=== PATIENT | female | born 2000 | race Caucasian/White ===

== ENCOUNTER → 2020-09-06 15:51 | Outpatient (BNVA) | payer OTHER, SELFPAY | PROVIDERS: Visit Provider Physician Assistant | DX: Z13.89 Encounter for screening for other disorder (principal) | CPT/HCPCS: 99214 ==

== ENCOUNTER 2020-09-24 07:22 | Emergency (ER) | payer MEDICARE, MEDICAID, SELFPAY ==
[2020-09-24 07:32] VITALS: BP 175/121; PULSE 100; RESP 18; TEMP 36.5; O2SAT 97; BMI 49.6
--- NOTE | 2020-09-24 08:12 | ED.SKABFB ---
HPI - Skin/Abscess/Foreign Bdy General Chief complaint: Skin/Abscess/Foreign Body Stated complaint: L KNEE PAIN REDNESS Time Seen by Provider: 09/24/20 08:12 Source: patient Mode of arrival: ambulatory Limitations: no limitations History of Present Illness HPI narrative: 20-year-old female otherwise healthy presented with left thigh redness for the past 2 days, patient otherwise declined any fever chills. complaint: rash Onset (ago): day(s) (2) Tetanus up to date: yes Location: LLE ( Inner aspect of the left thigh) Severity: moderate Pain Consistency: constant Relieving factors: none Exacerbating factors: none Context: none Associated symptoms: denies other symptoms Related Data Previous Rx's Medication Instructions Recorded doxycycline monohydrate 100 mg PO BID #14 cap 09/24/20 Allergies Allergy/AdvReac Type Severity Reaction Status Date / Time cephalexin [From Keflex] AdvReac Redness of Verified 09/24/20 07:35 Skin Review of Systems Review of Systems: all other systems are reviewed and are negative Constitutional: Reports as per HPI and Reports no additional constitutional complaints Eyes: Reports as per HPI and Reports no additional eye complaints Reports system reviewed and no additional complaints, except as documented Cardiovascular: Reports as per HPI and Reports no additional cardiovascular complaints Respiratory: Reports as per HPI and Reports no additional respiratory complaints Gastrointestinal: Reports as per HPI and Reports no additional gastrointestinal complaints Genitourinary: Reports no additional female genitourinary complaints Musculoskeletal: Reports no additional musculoskeletal complaints Skin/Breast: Reports system reviewed and no additional complaints, except as docu Psychiatric: Reports no additional psychiatric complaints Endocrine: Reports no additional endocrine complaints Hematologic/Lymphatic: Reports no additional hematologic/lymphatic complaints Allergic/Immunologic: Reports no additional allergic/immunologic complaints Reports system reviewed and no additional complaints, except as documented and Reports Abnormal speech present [facility] Past Medical History Medical History Asthma High blood pressure Social History Social History Advance Directives: No Advance Directives Information Provided: No Physical Exam Vital Signs: Vital Signs: Vital Signs Temp Pulse Resp BP Pulse Ox 09/24/20 08:17 163/105 H 09/24/20 07:32 97.7 F 100 18 175/121 H 97 Body Mass Index 49.6 vital signs have been reviewed as normal and appeared to be correct. hypertensive (will repeat, patient reported that she did not take her blood pressure medication). Heart rate normal. Respiration rate normal. Temperature normal. Oxygen saturation normal. Appearance: Alert. Oriented X3. No acute distress. obese Head: Normal external exam. Normocephalic. Atraumatic. No Baeza signs noted. No raccoon eyes noted Eyes: PERRLA. EOMI. Conjunctiva and sclera normal. Eyelids normal. ENT: EAC normal. TM's Normal. Pharynx normal. Uvula midline. Moist mucous membranes. No trismus noted. No drooling noted. No muffled voice noted. Neck: Normal inspection. Neck supple. FROM. No adenopathy. Thyroid Normal. No meningeal signs. No neck mass noted. CVS: Normal heart rate and rhythm. Heart sound normal. No murmurs noted. Pulses normal throughout. Respiratory: No respiratory distress. Painless inspiration. Breath sounds normal. No wheezes/rales/rhonchi noted. Chest nontender. No accessory muscle usage noted or decreased air movement noted. Abdomen: Soft and nontender. Bowel sounds normal in all 4 quadrants. No distention noted. No organomegaly noted. No visible injury noted. Back: No CVA tenderness. Full range of motion noted. Skin: Skin warm and dry. Normal skin color. Normal skin turgor. No rashes/lesions/lacerations noted. Extremities: No lower extremity edema. . 3 x 4 cm area of redness, hotness, tenderness, no fluctuation. Or abscess is appreciated. Neuro: Oriented X 3. No motor deficit. No sensory deficit. Reflexes normal. Course Course Course Narrative: assessment and plan. 20-year-old female history of hypertension presented with a left thigh cellulitis, no abscess. Patient was instructed to follow-up with PCP and keep monitoring blood pressure at home, patient also was advised to work on losing weight which fell to help her blood pressure controlling. Left thigh cellulitis with no abscess, no signs of sepsis. As discussed with the patient will start on doxycycline and to follow up in 2 days. Discharge Plan Discharge Clinical Impression: Cellulitis Patient Disposition: Home, Self-Care Instructions: Cellulitis (ED) Prescriptions: New doxycycline monohydrate 100 mg capsule 100 mg PO BID Qty: 14 RF: 0
[2020-09-24 08:17] VITALS: BP 163/105
== END 2020-09-24 08:23 | disposition home or self-care (01) ==
PROVIDERS: Emergency Provider Emergency Medicine; PCP Internal Medicine
DX: L03.116 Cellulitis of left lower limb (principal); I10 Essential (primary) hypertension; Z79.899 Other long term (current) drug therapy
CPT/HCPCS: 99283

== ENCOUNTER → 2020-10-06 15:34 | Outpatient (BNVA) | payer OTHER, SELFPAY | PROVIDERS: PCP Internal Medicine; Visit Provider Physician Assistant Medical | DX: S39.012D Strain of muscle, fascia and tendon of lower back, subsequent encounter (principal); X58.XXXD Exposure to other specified factors, subsequent encounter | CPT/HCPCS: 99213 ==

== ENCOUNTER 2020-10-20 07:37 | Emergency (ER) | payer MEDICARE, MEDICAID, SELFPAY ==
[2020-10-20 08:02] VITALS: BP 149/89; PULSE 104; RESP 18; TEMP 37.1; O2SAT 99; BMI 42.8
--- NOTE | 2020-10-20 08:28 | ED.SKABFB ---
HPI - Skin/Abscess/Foreign Bdy General Chief complaint: Skin/Abscess/Foreign Body Stated complaint: ABSCESS Time Seen by Provider: 10/20/20 08:26 History of Present Illness HPI narrative: Patient is a 20-year-old female presents today with having a lesion over the right groin area. Patient claims she has had these in the past. They been drained in the past. No fever no chills no systemic complaints. Patient claims she has allergies to doxycycline and Keflex. Was treated for similar issues earlier in the month on the opposite side. At the time patient claims not as large. This 1 feels more fluid inside. No systemic complaints. Patient from home. Related Data Previous Rx's Medication Instructions Recorded doxycycline monohydrate 100 mg PO BID #14 cap 09/24/20 clindamycin HCl 300 mg PO Q6H 5 Days #20 cap 10/20/20 Allergies Allergy/AdvReac Type Severity Reaction Status Date / Time doxycycline Allergy Hives Verified 10/20/20 08:05 cephalexin [From Keflex] AdvReac Redness of Verified 09/24/20 07:35 Skin Review of Systems Review of Systems: Constitutional: No Weight loss, No Fever, No Chills, No Night Sweats, No Fatigue, No Malaise ENT/Mouth: No Hearing loss, No Ear Pain, No Nasal Congestion, No Sinus Pain, No Hoarseness, No sore throat, No Rhinorrhea, No Swallowing Difficulty Eyes: No Eye Pain, No Swelling, No Redness, No Foreign Body, No Discharge, No Vision Changes Cardiovascular: No Chest Pain, No SOB, No Dyspnea on Exertion, No Orthopnea, No Edema, No Palpitations Respiratory: No Cough, No Sputum, No Wheezing, No Smoke Exposure, No Dyspnea Gastrointestinal: No Nausea, No Vomiting, No Diarrhea, No Constipation, No abdominal Pain, No Hematochezia, No Melena Genitourinary: no irregular bleeding, No Dysuria, No Urinary Frequency, No Hematuria, No Urinary Incontinence, No Urgency, No Flank Pain, No Urinary Flow Changes, No Hesitancy Musculoskeletal: No joint pain, No Myalgias, No Joint Swelling Skin: Positive lesion to the right groin area 3 cm x 4 cm in size. Positive fluctuance to touch Neuro: No Weakness, No Numbness, No Paresthesias, No Loss of Consciousness, No Dizziness, No Headache Psych: No Anxiety/Panic, No Depression, No SI/HI/AH/VH, No Social Issues, Heme/Lymph: No Bruising, No Bleeding,No Lymphadenopathy Endocrine: No Polyuria, No Polydipsia, No Temperature Intolerance COUNTS INCLUDE 234 BEDS AT THE [facility] Past Medical History Attestation statement: The following information was validated with the patient. Source: unable to obtain Medical History Asthma High blood pressure Social History Social History Advance Directives: No Advance Directives Information Provided: No Physical Exam Vital Signs: Vital Signs: Last Vital Signs Temp 98.8 F 10/20/20 08:02 Pulse 104 H 10/20/20 08:02 Resp 18 10/20/20 08:02 BP 149/89 H 10/20/20 08:02 Pulse Ox 99 10/20/20 08:02 Body Mass Index 42.8 Appearance: Alert. Oriented X3. No acute distress. Eyes: Pupils equal, round and reactive to light. ENT: Pharynx normal. Neck: Normal inspection. Neck supple. No lymph nodes noted. No crepitus CVS: Normal heart rate and rhythm. Pulses normal. Normal S1 and S2 Respiratory: No respiratory distress. Breath sounds normal. No Wheezing. No rales Abdomen: Soft and nontender. No rigidity. No distention. good BS x4 Skin: Positive 3 cm x 3 cm fluctuant mass over the right groin area. Not draining. Slight redness over the lesion. Exam done with nurse Charisma present Extremities: No lower extremity edema. Neurovascular intact to all extremities. No Lacerations. No Rash Neuro: Oriented X 3. No motor deficit. No sensory deficit. Moving all extermities. No slurred speech Procedures Abscess I/D Site: other (righ groin) Side (if applicable): right Local Anesthetic: lidocaine 1% Amount of anesthesia used (mL): 5 Technique: incised with blade Sent for culture/gram staining?: Yes Irrigation: Yes Packing used?: iodoform MDM - Skin/Abscess/Foreign Bdy MDM Narrative Medical decision making narrative: The wound will be I and D. antibiotics ordered. Will discharge patient home. Discharge Plan Discharge Clinical Impression: Abscess of skin or subcutaneous tissue Patient Disposition: Home, Self-Care Instructions: Abscess (ED) Prescriptions: New clindamycin HCl 300 mg capsule 300 mg PO Q6H 5 Days Qty: 20 RF: 0 No Action doxycycline monohydrate 100 mg capsule 100 mg PO BID Qty: 14 RF: 0 Referrals: Martina Gonzalez MD [Primary Care Provider] - 2 days
[2020-10-20] MEDS: Lidocaine HCl 1 % MPF 5 ML VIAL INFILTRATI (08:38)
== END 2020-10-20 09:24 | disposition home or self-care (01) ==
PROVIDERS: Emergency Provider Emergency Medicine Emergency Medical Services; PCP Internal Medicine
DX: L02.214 Cutaneous abscess of groin (principal); Z79.899 Other long term (current) drug therapy
CPT/HCPCS: 10060; 87071; 87147; 87205; 99283

== ENCOUNTER → 2020-11-08 10:54 | Outpatient (BNVA) | payer OTHER, SELFPAY | PROVIDERS: PCP Internal Medicine; Visit Provider Physician Assistant Medical | DX: S39.012D Strain of muscle, fascia and tendon of lower back, subsequent encounter (principal); X58.XXXD Exposure to other specified factors, subsequent encounter; M46.1 Sacroiliitis, not elsewhere classified | CPT/HCPCS: 99213 ==

== ENCOUNTER 2020-12-06 07:23 | Emergency (ER) | payer MEDICARE, MEDICAID, SELFPAY ==
--- NOTE | 2020-12-06 07:37 | ED_ITS ---
HPI - Skin/Abscess/Foreign Bdy General Chief complaint: Skin/Abscess/Foreign Body Stated complaint: abscess Time Seen by Provider: 12/06/20 07:37 Source: patient Mode of arrival: ambulatory Limitations: no limitations History of Present Illness HPI narrative: 2 days of increasing pain and redness to right flank complaint: abscess/boil Onset (ago): day(s) Tetanus up to date: yes Severity: mild Quality: aching Pain Consistency: constant Associated symptoms: denies other symptoms Related Data Previous Rx's Medication Instructions Recorded doxycycline monohydrate 100 mg PO BID #14 cap 09/24/20 clindamycin HCl 300 mg PO Q6H 5 Days #20 cap 10/20/20 Allergies Allergy/AdvReac Type Severity Reaction Status Date / Time doxycycline Allergy Hives Verified 10/20/20 08:05 cephalexin [From Keflex] AdvReac Redness of Verified 09/24/20 07:35 Skin Review of Systems Constitutional: Constitutional: Reports no additional constitutional complaints Eyes: Eyes: Reports no additional eye complaints ENT: Denies dizziness Cardiovascular: Cardiovascular: Reports no additional cardiovascular complaints Respiratory: Respiratory: Reports as per HPI Gastrointestinal: Gastrointestinal: Reports no additional gastrointestinal complaints Genitourinary: Genitourinary: Reports no additional female genitourinary complaints Musculoskeletal: Musculoskeletal: Reports no additional musculoskeletal complaints Integumentary/Breasts: Skin/Breast: Denies rash Neurologic: Reports system reviewed and no additional complaints, except as documented, Denies dizziness and Denies Sensory deficit (Neuro) Psychiatric: Psychiatric: Denies anxiety PMFSH Past Medical History Medical History Asthma High blood pressure Social History Social History Advance Directives: No Advance Directives Information Provided: Yes Physical Exam Vital Signs: Vital Signs: Last Vital Signs Temp 97.6 F 12/06/20 07:45 Pulse 108 H 12/06/20 07:45 Resp 16 12/06/20 07:45 BP 142/61 H 12/06/20 07:45 Pulse Ox 99 12/06/20 07:45 Body Mass Index 53.1 Const: General: healthy appearing Nutritional Appearance: obese Orientation/consciousness: oriented to person and patient oriented x3 Li mitations: no limitations HENMT: Head: Yes normal to inspection Ears: external ears normal General nose exam: Normal external nose present Mouth: Normal oral and palatal mucosa present and oropharynx normal Throat: Yes posterior oropharynx normal Eyes: General: appearance normal, both eyes and all related structures Neck: Other: supple Neck: Yes normal visual inspection Chest: Chest palpation & inspection: normal inspection of the chest Resp: Auscultation: clear to auscultation bilaterally Cardio: Jugular venous distension: no JVD Rate: regular rate Rhythm: regular rhythm Heart sounds: S1 normal heart sound present and S2 normal heart sound present GI: Inspection: Yes normal to inspection Palpation (GI): Soft to palpation, nontender and No hepatosplenomegaly present Auscultation: normal bowel sounds : General: Yes no CVA tenderness Back/Spine/Pelvis: Back: no CVA tenderness Skin: Other: right flank with small abscess with small surrounding erythema Neuro: General: oriented to person and patient oriented x3 Cranial nerves: Yes CN's II-XII intact bilaterally Motor exam (neuro): 5/5 motor strength present throughout Sensory Exam: No Sensory deficit (Neuro) Extrem: General: Yes normal to inspection Psych: Appearance: grossly normal Course Course Course Narrative: Patient prepped and draped in sterile fashion. !% epi with lidocaine used for anesthesia. 11 blade used, pus removed, packing placed. Patient tolerated procedure well Discharge Plan Discharge Clinical Impression: Abscess of skin or subcutaneous tissue Patient Disposition: Home, Self-Care Instructions: Abscess (ED) Additional Instructions: remove packing in 24 hours Prescriptions: No Action clindamycin HCl 300 mg capsule 300 mg PO Q6H 5 Days Qty: 20 RF: 0 doxycycline monohydrate 100 mg capsule 100 mg PO BID Qty: 14 RF: 0 Referrals: Martina Gonzalez MD [Primary Care Provider] - 2 days
[2020-12-06 07:45] VITALS: BP 142/61; PULSE 108; RESP 16; TEMP 36.4; O2SAT 99; BMI 53.1
[2020-12-06] MEDS: Lidocaine HCl 1 % MPF 5 ML VIAL SUBCUT (08:15)
== END 2020-12-06 08:30 | disposition home or self-care (01) ==
PROVIDERS: Emergency Provider Emergency Medicine; PCP Internal Medicine
DX: L02.212 Cutaneous abscess of back [any part, except buttock and flank] (principal)
CPT/HCPCS: 10060; 99283; 99284

== ENCOUNTER 2020-12-07 11:28 | Emergency (ER) | payer MEDICARE, MEDICAID, SELFPAY ==
[2020-12-07 11:37] VITALS: BP 157/95; PULSE 90; RESP 18; TEMP 36.8; O2SAT 98; BMI 52.2
--- NOTE | 2020-12-07 12:21 | ED_ITS ---
HPI - Skin/Abscess/Foreign Bdy General Chief complaint: Skin/Abscess/Foreign Body Stated complaint: abscess on back here yesterday Time Seen by Provider: 12/07/20 12:04 Source: patient Mode of arrival: ambulatory Limitations: no limitations History of Present Illness HPI narrative: 20 y/o female who was seen here yesterday for flank abscess s/p I&D and packing who presents back with reports of chills at home. She states she usually gets antibiotics after she requires an abscess drainage but was not given any on discharge yesterday. Her mother is concerned for infection so forced her to come into the ER for evaluation. She states the packing fell out. She can't tell if there is more drainage, redness or swelling due to location. No fevers at home. Afebrile on arrival. complaint: abscess/boil Onset (ago): day(s) Tetanus up to date: yes Location: generalized Severity: mild Associated symptoms: chills Treatments prior to arrival: bandages Related Data Previous Rx's Medication Instructions Recorded doxycycline monohydrate 100 mg PO BID #14 cap 09/24/20 clindamycin HCl 300 mg PO Q6H 5 Days #20 cap 10/20/20 clindamycin HCl 300 mg PO Q6H #28 cap 12/07/20 Allergies Allergy/AdvReac Type Severity Reaction Status Date / Time doxycycline Allergy Hives Verified 10/20/20 08:05 cephalexin [From Keflex] AdvReac Redness of Verified 09/24/20 07:35 Skin Review of Systems Review of Systems: Constitutional: No Fever, + Chills Cardiovascular: No Chest Pain, No SOB Respiratory: No Cough, No Sputum Gastrointestinal: No Nausea, No Vomiting Musculoskeletal: No joint pain, No Myalgias Skin: + Skin Lesions, No rash Heme/Lymph: No Lymphadenopathy PMFSH Past Medical History Attestation statement: The following information was validated with the patient. Medical History Asthma High blood pressure Social History Social History Advance Directives: No Advance Directives Information Provided: No Physical Exam Vital Signs: Vital Signs: Last Vital Signs Temp 98.2 F 12/07/20 11:37 Pulse 90 12/07/20 11:37 Resp 18 01/14/21 11:37 BP 157/95 H 12/07/20 11:37 Pulse Ox 98 12/07/20 11:37 Body Mass Index 52.2 Appearance: Alert. Oriented X3. No acute distress. HEENT: normal inspection CVS: Normal heart rate and rhythm. Pulses normal. Respiratory: No respiratory distress. Skin: Skin warm and dry. Normal skin color. Normal skin turgor. No rashes. Back: right flank with small healing abscess, very mild surrounding erythema from central incision point. no further pus able to be expressed. minimal tenderness. Neuro: Oriented X 3. Non-focal Course Course Course Narrative: 20 y/o female here with chilld s/p I&D of abscess yesterday. Wound is healing nicely. Afebrile on arrival. Will give Clindamycin given patient's report of chills however suspicion of systemic infection is very low. She has been counseled and is stable for discharge. Critical Care Time Critical Care Time Critical Care Time: No Discharge Plan Discharge Clinical Impression: Abscess of skin or subcutaneous tissue Qualifiers: Site of cutaneous abscess: trunk Site of cutaneous abscess of trunk: back Qu alified Code(s): L02.212 - Cutaneous abscess of back [any part, except buttock] Patient Disposition: Home, Self-Care Instructions: Abscess Follow-up (ED) Additional Instructions: Your abscess is healing nicely. Take the prescribe antibiotic as directed. If you continue to have chills or develop fevers, worsening redness, drainage, or any other concerning symptom come back to the ER for further evaluation. Follow up with your doctor as needed. Prescriptions: New clindamycin HCl 300 mg capsule 300 mg PO Q6H Qty: 28 RF: 0 No Action clindamycin HCl 300 mg capsule 300 mg PO Q6H 5 Days Qty: 20 RF: 0 doxycycline monohydrate 100 mg capsule 100 mg PO BID Qty: 14 RF: 0 Discharge Date/Time: 12/07/20 12:48
== END 2020-12-07 12:48 | disposition home or self-care (01) ==
PROVIDERS: Emergency Provider Emergency Medicine Emergency Medical Services; PCP Internal Medicine
DX: L02.212 Cutaneous abscess of back [any part, except buttock and flank] (principal); Z79.899 Other long term (current) drug therapy
CPT/HCPCS: 99283

== ENCOUNTER 2021-01-13 01:10 | Emergency (ER) | payer MEDICARE, MEDICAID, SELFPAY ==
[2021-01-13 02:15] VITALS: BP 145/93; PULSE 120; RESP 15; TEMP 37.6; O2SAT 96; BMI 52.0
[2021-01-13 03:12] LABS: Appearance Urine HAZY; Color Urine ORANGE; Glucose Urine UA 100 MG/DL (NEG); Leukocyte Esterase Urine TRACE (NEG); Nitrite Urine POS (NEG); Specific Gravity - Urine 1.025 (1.005-1.025); Urine Blood 1+ (NEG); Urine Ketones 5 MG/DL (NEG); Urine Protein 2+ MG/DL (NEG-TRACE)
[2021-01-13 03:18] LABS: Bacteria Urine 1+ /LPF; Squamous Epithelial Cell Urine 2+ /LPF
[2021-01-13 03:44] LABS: UPreg QC Valid YES; Urine Pregnancy NEGATIVE (NEGATIVE)
--- NOTE | 2021-01-13 04:01 | ED_ITS ---
HPI - Female Genitourinary General Chief complaint: Urogenital-Female Stated complaint: Difficulty urinating/back pain Time Seen by Provider: 01/13/21 03:51 Source: patient Mode of arrival: ambulatory Limitations: no limitations History of Present Illness HPI Narrative: Patient comes emergency room complaining of dysuria for 2-3 days. Patient states that she usually does not get UTIs, last UTI over 6 months ago. Patient denies flank pain. No hematuria, complaining of chills, no fever MD elicited complaint: dysuria and UTI Related Data Previous Rx's Medication Instructions Recorded doxycycline monohydrate 100 mg PO BID #14 cap 09/24/20 clindamycin HCl 300 mg PO Q6H 5 Days #20 cap 10/20/20 clindamycin HCl 300 mg PO Q6H #28 cap 12/07/20 sulfamethoxazole-trimethoprim 1 tab PO BID #5 tab 01/13/21 [Bactrim DS] Allergies Allergy/AdvReac Type Severity Reaction Status Date / Time doxycycline Allergy Hives Verified 10/20/20 08:05 cephalexin [From Keflex] AdvReac Redness of Verified 09/24/20 07:35 Skin Review of Systems Review of Systems: Constitutional : No Weight loss, No Fever, No Chills, No Night Sweats, No Fatigue, No Malaise ENT/Mouth : No Hearing loss, No Ear Pain, No Nasal Congestion, No Sinus Pain, No Hoarseness, No sore throat, No Rhinorrhea, No Swallowing Difficulty Eyes: No Eye Pain, No Swelling, No Redness, No Foreign Body, No Discharge, No Vision Changes Cardiovascular : No Chest Pain, No SOB, No Dyspnea on Exertion, No Orthopnea, No Edema, No Palpitations Respiratory : No Cough, No Sputum, No Wheezing, No Smoke Exposure, No Dyspnea Gastrointestinal : No Nausea, No Vomiting, No Diarrhea, No Constipation, No abdominal Pain, No Hematochezia, No Melena Genitourinary : no irregular bleeding, complaining of dysuria and urinary frequency, no flank pain, No Hematuria, No Urinary Incontinence Musculoskeletal : No joint pain, No Myalgias, No Joint Swelling Skin : No Skin Lesions, No rash Neuro : No Weakness, No Numbness, No Paresthesias, No Loss of Consciousness, No Dizziness, No Headache Psych : No Anxiety/Panic, No Depression, No SI/HI/AH/VH, No Social Issues, Heme/Lymph: No Bruising, No Bleeding,No Lymphadenopathy Endocrine : No Polyuria, No Polydipsia, No Temperature Intolerance [facility] Past Medical History Medical History Asthma High blood pressure Social History Social History Smoking Status: Never smoker Use of substances other than those prescribed or required for medical reasons: No Advance Directives: No Physical Exam Vital Signs: Vital Signs: Last Vital Signs Temp 99.7 F 01/13/21 02:15 Pulse 120 H 01/13/21 02:15 Resp 15 01/13/21 02:15 BP 145/93 H 01/13/21 02:15 Pulse Ox 96 01/13/21 02:15 Body Mass Index 52.0 Appearance: Alert. Oriented X3. No acute distress. Eyes: Pupils equal, round and reactive to light. ENT: Pharynx normal. Neck: Normal inspection. Neck supple. No lymph nodes noted. No crepitus CVS: Normal heart rate and rhythm. Pulses normal. Normal S1 and S2 Respiratory: No respiratory distress. Breath sounds normal. No Wheezing. No rales Abdomen: Soft , mild suprapubic pain on palpation. No rigidity. No distention. good BS x4 Back: No back pain, negative CVA tenderness bilaterally Skin: Skin warm and dry. Normal skin color. Normal skin turgor. Extremities: No lower extremity edema. No lower extremity edema. No Lacerations. No Rash Neuro: Oriented X 3. No motor deficit. No sensory deficit. Moving all extermities. No slurred speech. Course Course Course Narrative: Pyelonephritis is not suspected at this time. Patient was giving a 1st dose of Bactrim. Patient will follow-up with her primary care physician. MDM - Female Genitourinary Lab Data Labs: Lab Results 01/13/21 01/13/21 Range/Units 02:26 02:26 Urine Color ORANGE Urine Appearance HAZY Urine pH 5.0 (5.0-8.0) Ur Specific [place] 1.025 (1.005-1.025) Urine Protein 2+ H (NEG-TRACE) MG/DL Urine Glucose (UA) 100 H (NEG) MG/DL Urine Ketones 5 (NEG) MG/DL Urine Blood 1+ H (NEG) Urine Nitrite POS H (NEG) Ur Leukocyte Esterase TRACE H (NEG) Urine RBC 1-4 (0) /HPF Urine WBC 1-4 (0-4) /HPF Ur Squamous Epith Cells 2+ /LPF Urine Bacteria 1+ /LPF Urine Test NEGATIVE (NEGATIVE) Discharge Plan Discharge Clinical Impression: Urinary tract infection Qualifiers: Urinary tract infection type: acute cystitis Hematuria presence: without hematuria Qualified Code(s): N30.00 - Acute cystitis without hematuria Patient Disposition: Home, Self-Care Instructions: Urinary Tract Infection in Women (ED) Prescriptions: New sulfamethoxazole-trimethoprim [Bactrim DS] 800-160 mg tablet 1 tab PO BID Qty: 5 RF: 0 No Action clindamycin HCl 300 mg capsule 300 mg PO Q6H 5 Days Qty: 20 RF: 0 doxycycline monohydrate 100 mg capsule 100 mg PO BID Qty: 14 RF: 0 clindamycin HCl 300 mg capsule 300 mg PO Q6H Qty: 28 RF: 0
== END 2021-01-13 04:16 | disposition home or self-care (01) ==
PROVIDERS: Emergency Provider Emergency Medicine; PCP Internal Medicine
DX: N30.00 Acute cystitis without hematuria (principal)
CPT/HCPCS: 81001; 81003; 81025; 99284

== ENCOUNTER 2021-01-15 07:26 | Emergency (ER) | payer MEDICARE, MEDICAID, SELFPAY ==
[2021-01-15 08:00] VITALS: PULSE 100; RESP 18; TEMP 36.8; O2SAT 97; BMI 114.8
--- NOTE | 2021-01-15 08:08 | ED_ITS ---
HPI - Female Genitourinary General Chief complaint: Urogenital-Female Stated complaint: urination problem Time Seen by Provider: 01/15/21 07:36 Source: patient Mode of arrival: ambulatory Limitations: no limitations History of Present Illness HPI Narrative: started on bactrim for UTI now burning MD elicited complaint: dysuria, UTI and genital itching Location of symptoms: external genitalia and vaginal Severity: mild Quality of pain: burning Consistency: constant Vaginal discharge: white Urinary symptoms: Dysuria, Urgency and Frequency Related Data Previous Rx's Medication Instructions Recorded doxycycline monohydrate 100 mg PO BID #14 cap 09/24/20 clindamycin HCl 300 mg PO Q6H 5 Days #20 cap 10/20/20 clindamycin HCl 300 mg PO Q6H #28 cap 12/07/20 sulfamethoxazole-trimethoprim 1 tab PO BID #5 tab 01/13/21 [Bactrim DS] dimethicone [Monistat Soothing 1 appl TOPICAL QID PRN #42 g 01/15/21 Care] fluconazole [Diflucan] 150 mg PO DAILY #1 tab 01/15/21 Allergies Allergy/AdvReac Type Severity Reaction Status Date / Time doxycycline Allergy Hives Verified 10/20/20 08:05 cephalexin [From Keflex] AdvReac Redness of Verified 09/24/20 07:35 Skin Review of Systems Constitutional: Constitutional: Reports no additional constitutional complaints Eyes: Eyes: Reports no additional eye complaints ENT: Denies dizziness Cardiovascular: Cardiovascular: Reports no additional cardiovascular complaints Respiratory: Respiratory: Reports as per HPI Gastrointestinal: Gastrointestinal: Reports no additional gastrointestinal complaints Genitourinary: Genitourinary: Reports no additional female genitourinary complaints Musculoskeletal: Musculoskeletal: Reports no additional musculoskeletal complaints Integumentary/Breasts: Skin/Breast: Denies rash Neurologic: Reports system reviewed and no additional complaints, except as documented, Denies dizziness and Denies Sensory deficit (Neuro) Psychiatric: Psychiatric: Denies anxiety PMFSH Past Medical History Medical History Asthma High blood pressure Social History Social History Smoking Status: Never smoker Advance Directives: No Advance Directives Information Provided: No Physical Exam Vital Signs: Vital Signs: Last Vital Signs Temp 98.2 F 01/15/21 08:00 Pulse 100 01/15/21 08:00 Resp 18 01/15/21 08:00 Pulse Ox 97 01/15/21 08:00 Body Mass Index 114.8 Const: Other: obese female comfortable Nutritional Appearance: obese Orientation/consciousness: oriented to person and patient oriented x3 Limitations: no limitations HENMT: Head: Yes normal to inspection Ears: external ears normal General nose exam: Normal external nose present Mouth: Normal oral and palatal mucosa present and oropharynx normal Throat: Yes posterior oropharynx normal Eyes: General: appearance normal, both eyes and all related structures Neck: Other: supple Neck: Yes normal visual inspection Chest: Chest palpation & inspection: normal inspection of the chest Resp: Auscultation: clear to auscultation bilaterally Cardio: Jugular venous distension: no JVD Rate: regular rate Rhythm: regular rhythm Heart sounds: S1 normal heart sound present and S2 normal heart sound present GI: Inspection: Yes normal to inspection Palpation (GI): Soft to palpation, nontender and No hepatosplenomegaly present Auscultation: normal bowel sounds : Other: vaginal area with erythema and white discharge General: Yes no CVA tenderness Back/Spine/Pelvis: Back: no CVA tenderness Skin: General skin exam: no rashes or lesions noted Neuro: General: oriented to person and patient oriented x3 Cranial nerves: Yes CN's II-XII intact bilaterally Motor exam (neuro): 5/5 motor strength present throughout Sensory Exam: No Sensory deficit (Neuro) Extrem: General: Yes normal to inspection Psych: Appearance: grossly normal Course Course Course Narrative: Patient being treated with UTI, not a diabetic, will treat with monastat during treatment and then diflucan MDM - Female Genitourinary MDM Narrative Medical decision making narrative: vaginal candidiasis with no evidence of diabe jason Differential Diagnosis Differential diagnosis: Likely urinary tract infection and vaginitis Discharge Plan Discharge Clinical Impression: Estephanie infection of genital region Vaginitis Qualifiers: Chronicity: acute Qualified Code(s): N76.0 - Acute vaginitis Patient Disposition: Home, Self-Care Prescriptions: New fluconazole [Diflucan] 150 mg tablet 150 mg PO DAILY Qty: 1 RF: 0 Monistat Soothing Care 1.2 % gel 1 appl topical QID PRN (Reason: skin irritation) Qty: 42 RF: 0 No Action clindamycin HCl 300 mg capsule 300 mg PO Q6H 5 Days Qty: 20 RF: 0 doxycycline monohydrate 100 mg capsule 100 mg PO BID Qty: 14 RF: 0 clindamycin HCl 300 mg capsule 300 mg PO Q6H Qty: 28 RF: 0 sulfamethoxazole-trimethoprim [Bactrim DS] 800-160 mg tablet 1 tab PO BID Qty: 5 RF: 0 Referrals: Martina Gonzalez MD [Primary Care Provider] - 2 days
--- NOTE | 2021-01-15 08:18 | PC.NURSE ---
SEEN BY PROVIDER. PROVIDER CX URINE ORDER - NOT NEEDED. FEMALE CHAPARONE FOR GENITAL EXAM.
[2021-01-15 08:26] LABS: Glucose, Whole Blood 94 mg/dL (60-115)
--- NOTE | 2021-01-15 08:52 | PC.NURSE ---
CLEARED FOR DC BY PROVIDER AFTER GENITAL EXAM - DX WITH YEAST INFECTION.
== END 2021-01-15 08:53 | disposition home or self-care (01) ==
PROVIDERS: Emergency Provider Emergency Medicine; PCP Internal Medicine
DX: B37.3 Candidiasis of vulva and vagina (principal); N76.0 Acute vaginitis; N39.0 Urinary tract infection, site not specified; Z79.899 Other long term (current) drug therapy
CPT/HCPCS: 82947; 99282

== ENCOUNTER 2021-03-18 02:51 | Emergency (ER) | payer MEDICARE, MEDICAID, SELFPAY ==
--- NOTE | 2021-03-18 | ECG_ITS ---
Test Reason : CHEST PAIN Blood Pressure : / mmHG Vent. Rate : 106 BPM Atrial Rate : 106 BPM P-R Int : 148 ms QRS Dur : 090 ms QT Int : 320 ms P-R-T Axes : 054 040 032 degrees QTc Int : 425 ms Sinus tachycardia Possible Anterior infarct , age undetermined Abnormal ECG When compared with ECG of 07-JUN-2020 15:42, No significant change was found Referred By: Generic ED Physician Electronically Signed By:SARAH NEUMANN MD
--- NOTE | ~2021-03-18 | XR_ITS ---
EXAMINATION: XR CHEST CLINICAL INFORMATION: Chest pain COMPARISON: 06/07/2020 TECHNIQUE: Frontal view of the chest was obtained. FINDINGS: Cardiac leads overlie the chest. The lungs are well expanded. There is no focal consolidation, edema, or effusion. No pneumothorax. The cardiomediastinal silhouette is within normal limits. No acute osseous abnormality. XR/XR chest 1V IMPRESSION: Clear lungs.
[2021-03-18 03:11] VITALS: BP 166/81; PULSE 104; RESP 16; TEMP 37.4; O2SAT 100; BMI 51.3
[2021-03-18 03:54] VITALS: BP 158/82; PULSE 110; RESP 16; TEMP 37.4; O2SAT 96
--- NOTE | 2021-03-18 03:54 | ED.CHESTPAIN ---
HPI - Chest Pain General Chief Complaint: Chest Pain Stated Complaint: Chest Pain Time Seen by Provider: 03/18/21 03:54 Source: patient Mode of arrival: ambulatory History of Present Illness HPI narrative: 21-year-old female with history of asthma presents with 2-3 days sharp right-sided chest pain that she states radiates from anterior to posterior and then yesterday she noted that she had some radiation into the right upper extremity. This is not been associated with any fever, chills, cough, shortness of breath, wheezing, recent travel, but she has had mild nausea without vomiting and otherwise denies abdominal pain or diarrhea. Related Data Previous Rx's Medication Instructions Recorded doxycycline monohydrate 100 mg PO BID #14 cap 09/24/20 clindamycin HCl 300 mg PO Q6H 5 Days #20 cap 10/20/20 clindamycin HCl 300 mg PO Q6H #28 cap 12/07/20 sulfamethoxazole-trimethoprim 1 tab PO BID #5 tab 01/13/21 [Bactrim DS] dimethicone [Monistat Soothing 1 appl TOPICAL QID PRN #42 g 01/15/21 Care] fluconazole [Diflucan] 150 mg PO DAILY #1 tab 01/15/21 Allergies Allergy/AdvReac Type Severity Reaction Status Date / Time doxycycline Allergy Hives Verified 10/20/20 08:05 cephalexin [From Keflex] AdvReac Redness of Verified 09/24/20 07:35 Skin Review of Systems Review of Systems: Pertinent positives and negatives as stated in HPI 10 point review of systems is otherwise negative. [facility] Past Medical History Source: nursing notes reviewed Medical History Asthma High blood pressure Social History Social History Alcohol intake: never Smoking Status: Never smoker Use of substances other than those prescribed or required for medical reasons: No Advance Directives: No Physical Exam Vital Signs: Vital Signs: Last Vital Signs Temp 99.3 F 03/18/21 03:54 Pulse 110 H 03/18/21 03:54 Resp 16 03/18/21 03:54 BP 158/82 H 03/18/21 03:54 Pulse Ox 96 03/18/21 03:54 Body Mass Index 51.3 VITAL SIGNS: Reviewed. GENERAL: Well developed, well nourished, in no acute distress. HEAD: Normocephalic/atraumatic, EYES: PERRLA, EOMI OROPHARYNX: no oral lesions noted, posterior pharynx clear NECK: Supple, no adenopathy LUNGS: Normal breath sounds. No adventitious sounds or accessory muscle use. SpO2<96> CARDIOVASCULAR: Regular rate and rhythm without noted murmurs ABDOMEN: Obese, Soft, non-tender, non-distended with bowel sounds, no CVA tenderness. RIGHT UPPER EXTREMITY: No observed deformities, neurovascularly intact distal, good hand mailroom manager, capillary refill less than 3 seconds, there is full range of motion at the shoulder, elbow, wrist. NEUROLOGIC: Alert and oriented x 4. Course Course Course Narrative: 21-year-old female with history and clinical presentation most consistent with musculoskeletal and less likely cardiopulmonary, renal, hepatobiliary in etiology. Low clinical suspicion for PE. Review of all investigations negative for any cardiopulmonary etiologies to include D-dimer negative. Patient informed of all results at the bedside and discharged home in stable condition with presumptive diagnosis of costochondritis. MDM - Chest Pain Lab Data Result diagrams: 03/18/21 04:11 03/18/21 04:12 Labs: Lab Results 03/18/21 03/18/21 03/18/21 Range/Units 04:11 04:11 04:11 WBC 9.7 (4.8-10.8) X10*3/uL RBC 4.58 (4.20-5.50) X10*6/uL Hgb 13.0 (12.0-16.0) g/dl Hct 40.4 (37-47) % MCV 88.2 (80-98) fL MCH 28.4 (27.0-33.0) pg MCHC 32.2 (31.0-35.0) g/dl RDW 13.4 (11.0-16.0) % Plt Count 320 (160-400) X10*3/uL MPV 9.2 L (9.4-12.3) fL Immature Gran % (Auto) 0.4 (0.0-0.4) % Neut % (Auto) 61.7 (45-73) % Lymph % (Auto) 25.4 (20-40) % Daniels % (Auto) 10.1 (2-11) % Eos % (Auto) 2.0 (0-4) % Baso % (Auto) 0.4 (0-2) % Lymph # (Auto) 2.5 (1.2-4.9) X10*3/uL Daniels # (Auto) 1.0 (0.1-1.2) X10*3/uL Eos # (Auto) 0.2 (0.0-0.4) X10*3/uL Baso # (Auto) 0.0 (0.0-0.2) X10*3/uL Abs Immat Gran (auto) 0.04 H (0.00-0.03) X10*3/uL Absolute Neuts (auto) 6.0 (2.0-8.3) X10*3/uL Absolute Nucleated RBC 0.000 (0.0-0.012) X10*3/uL Nucleated RBC % (auto) 0.0 (0.0-0.2) /100WBC D-Dimer < 200 NG/ML Hold Blue Top SEE NOTE Sodium (135-145) mmol/L Potassium (3.3-5.1) mmol/L Chloride (96-108) mmol/L Carbon Dioxide (22-29) mmol/L Anion Gap (12-20) BUN (9-16) mg/dL Creatinine (0.5-1.4) mg/dL Estim Creat Clear Calc Estimated GFR Random Glucose (60-115) mg/dL Calcium (8.4-10.2) mg/dL Total Bilirubin (0.0-1.0) mg/dL AST (5-31) U/L ALT (0-31) U/L Alkaline Phosphatase (39-117) U/L Troponin I High Sens (<3.5-17.0) ng/L Total Protein (6.5-8.0) g/dL Albumin (3.5-5.0) g/dL Urine Color Urine Appearance Urine pH (5.0-8.0) Ur Specific Zearing (1.005-1.025) Urine Protein (NEG-TRACE) MG/DL Urine Glucose (UA) (NEG) MG/DL Urine Ketones (NEG) MG/DL Urine Blood (NEG) Urine Nitrite (NEG) Ur Leukocyte Esterase (NEG) Urine RBC (0) /HPF Urine WBC (0-4) /HPF Ur Squamous Epith Cells /LPF Urine Bacteria /LPF Urine Mucus /LPF Urine Yeast /HPF Urine Test NEGATIVE (NEGATIVE) 03/18/21 03/18/21 03/18/21 Range/Units 04:12 04:12 04:12 WBC (4.8-10.8) X10*3/uL RBC (4.20-5.50) X10*6/uL Hgb (12.0-16.0) g/dl Hct (37-47) % MCV (80-98) fL MCH (27.0-33.0) pg MCHC (31.0-35.0) g/dl RDW (11.0-16.0) % Plt Count (160-400) X10*3/uL MPV (9.4-12.3) fL Immature Gran % (Auto) (0.0-0.4) % Neut % (Auto) (45-73) % Lymph % (Auto) (20-40) % Daniels % (Auto) (2-11) % Eos % (Auto) (0-4) % Baso % (Auto) (0-2) % Lymph # (Auto) (1.2-4.9) X10*3/uL Daniels # (Auto) (0.1-1.2) X10*3/uL Eos # (Auto) (0.0-0.4) X10*3/uL Baso # (Auto) (0.0-0.2) X10*3/uL Abs Immat Gran (auto) (0.00-0.03) X10*3/uL Absolute Neuts (auto) (2.0-8.3) X10*3/uL Absolute Nucleated RBC (0.0-0.012) X10*3/uL Nucleated RBC % (auto) (0.0-0.2) /100WBC D-Dimer NG/ML Hold Blue Top Sodium 141 (135-145) mmol/L Potassium 4.4 (3.3-5.1) mmol/L Chloride 108 (96-108) mmol/L Carbon Dioxide 26 (22-29) mmol/L Anion Gap 11 L (12-20) BUN 16 (9-16) mg/dL Creatinine 0.76 (0.5-1.4) mg/dL Estim Creat Clear Calc 154.0 Estimated GFR > 60 Random Glucose 99 (60-115) mg/dL Calcium 9.2 (8.4-10.2) mg/dL Total Bilirubin 0.3 (0.0-1.0) mg/dL AST 11 (5-31) U/L ALT 14 (0-31) U/L Alkaline Phosphatase 71 (39-117) U/L Troponin I High Sens < 3.5 (<3.5-17.0) ng/L Total Protein 6.9 (6.5-8.0) g/dL Albumin 3.9 (3.5-5.0) g/dL Urine Color YELLOW Urine Appearance CLEAR Urine pH 6.5 (5.0-8.0) Ur Specific Zearing 1.025 (1.005-1.025) Urine Protein NEG (NEG-TRACE) MG/DL Urine Glucose (UA) NEG (NEG) MG/DL Urine Ketones NEG (NEG) MG/DL Urine Blood 1+ H (NEG) Urine Nitrite NEG (NEG) Ur Leukocyte Esterase NEG (NEG) Urine RBC 1-4 (0) /HPF Urine WBC 0-2 (0-4) /HPF Ur Squamous Epith Cells 1+ /LPF Urine Bacteria TRACE /LPF Urine Mucus TRACE /LPF Urine Yeast TRACE /HPF Urine Test (NEGATIVE) ECG Data ECG #1: Attestation: I personally reviewed and interpreted this ECG as follows: Prior ECG tracings: available for review (06/07/2020 no acute changes on comparison) Interpretation: Sinus tachycardia, HR-106, no evidence of acute ischemia, NM/QRS/QTC are within normal limits. Discharge Plan Discharge Clinical Impression: Atypical chest pain, Acute costochondritis Patient Disposition: Home, Self-Care Instructions: Costochondritis (ED) Additional Instructions: Recommend taking [id number] Tylenol/ibuprofen as directed on the outside packaging for symptom control. Please follow-up with primary care provider for re-evaluation in 2-3 days. Do not hesitate to return to the emergency department should you develop any acute worsening of your symptoms. Prescriptions: No Action clindamycin HCl 300 mg capsule 300 mg PO Q6H 5 Days Qty: 20 RF: 0 doxycycline monohydrate 100 mg capsule 100 mg PO BID Qty: 14 RF: 0 clindamycin HCl 300 mg capsule 300 mg PO Q6H Qty: 28 RF: 0 sulfamethoxazole-trimethoprim [Bactrim DS] 800-160 mg tablet 1 tab PO BID Qty: 5 RF: 0 fluconazole [Diflucan] 150 mg tablet 150 mg PO DAILY Qty: 1 RF: 0 Monistat Soothing Care 1.2 % gel 1 appl topical QID PRN (Reason: skin irritation) Qty: 42 RF: 0 Referrals: Martina Gonzalez MD [Primary Care Provider] - 2 days
--- NOTE | 2021-03-18 04:17 | PC.NURSE ---
Labs and UA obtained and sent. Plan for CXR once UPreg is resulted.
[2021-03-18 04:21] LABS: MANUAL DIFF FLAG NO
[2021-03-18 04:24] LABS: Basophils Percent Auto 0.4 % (0-2); Eosinophils Absolute Auto 0.2 X10*3/uL (0.0-0.4); Hematocrit 40.4 % (37-47); Imm Gran Abs Auto 0.04 X10*3/uL (0.00-0.03); Imm Gran Pct Auto 0.4 % (0.0-0.4); Lymphocytes Absolute Auto 2.5 X10*3/uL (1.2-4.9); Lymphocytes Percent Auto 25.4 % (20-40); Mean Corpuscular HGB Conc 32.2 g/dl (31.0-35.0); Mean Corpuscular Hemoglobin 28.4 pg (27.0-33.0); Mean Corpuscular Volume 88.2 fL (80-98); Mean Platelet Volume 9.2 fL (9.4-12.3); Monocytes Percent Auto 10.1 % (2-11); Neutrophils Percent Auto 61.7 % (45-73); Platelet Count 320 X10*3/uL (160-400); Red Blood Count 4.58 X10*6/uL (4.20-5.50); Red Cell Distribution Width 13.4 % (11.0-16.0); White Blood Count 9.7 X10*3/uL (4.8-10.8)
[2021-03-18 04:42] LABS: Glucose Urine UA NEG (NEG); Leukocyte Esterase Urine NEG (NEG); Nitrite Urine NEG (NEG); PH 6.5 (5.0-8.0); Specific Gravity - Urine 1.025 (1.005-1.025); Urine Blood 1+ (NEG); Urine Ketones NEG (NEG); Urine Protein NEG (NEG-TRACE)
[2021-03-18 04:44] LABS: UPreg QC Valid YES; Urine Pregnancy NEGATIVE (NEGATIVE)
[2021-03-18 04:44] LABS: Appearance Urine CLEAR; Color Urine YELLOW
--- NOTE | 2021-03-18 04:45 | PC.NURSE ---
at bedside for primary eval.
[2021-03-18 04:49] LABS: Alanine Aminotransferase 14 U/L (0-31); Albumin Level 3.9 g/dL (3.5-5.0); Alkaline Phosphatase 71 U/L (39-117); Anion Gap 11 (12-20); Aspartate Amino Transferase 11 U/L (5-31); Bilirubin Total 0.3 mg/dL (0.0-1.0); Blood Urea Nitrogen 16 mg/dL (9-16); Calcium 9.2 mg/dL (8.4-10.2); Carbon Dioxide 26 mmol/L (22-29); Chloride 108 mmol/L (96-108); Estimated Glomerular Filt Rate > 60; Glucose Random 99 mg/dL (60-115); Potassium 4.4 mmol/L (3.3-5.1); Sodium 141 mmol/L (135-145); Total Protein 6.9 g/dL (6.5-8.0)
[2021-03-18 04:53] LABS: Troponin-I High Sensitivity < 3.5 ng/L (<3.5-17.0)
--- NOTE | 2021-03-18 04:55 | PC.NURSE ---
CXR at bedside.
[2021-03-18] MEDS: Acetaminophen 325 MG TABLET 975 MG PO (05:00)
[2021-03-18] MEDS: Ibuprofen 400 MG TABLET PO (05:01)
--- NOTE | 2021-03-18 05:01 | PC.NURSE ---
Medicated per MAR.
[2021-03-18 05:29] LABS: Bacteria Urine TRACE /LPF; Squamous Epithelial Cell Urine 1+ /LPF; WBC Urine 0-2 /HPF (0-4)
[2021-03-18 05:30] LABS: Mucus Urine TRACE /LPF
[2021-03-18 05:36] LABS: D Dimer < 200 NG/ML
== END 2021-03-18 06:13 | disposition home or self-care (01) ==
PROVIDERS: Emergency Provider Student in an Organized Health Care Education/Training Program; PCP Internal Medicine
DX: R07.89 Other chest pain (principal); M94.0 Chondrocostal junction syndrome [Tietze]; J45.909 Unspecified asthma, uncomplicated; I10 Essential (primary) hypertension
CPT/HCPCS: 36415; 71045; 80053; 81001; 81025; 84484; 85025; 85379; 93005; 99283; 99285

== ENCOUNTER 2022-04-05 15:03 | Emergency (ER) | payer MEDICARE, MEDICAID, SELFPAY ==
--- NOTE | ~2022-04-05 | XR_ITS ---
EXAMINATION: XR CHEST CLINICAL INFORMATION: Shortness of breath COMPARISON: 03/18/2021 TECHNIQUE: 2 views of the chest were obtained. FINDINGS: No acute finding. Lung wills are grossly clear. The cardiac silhouette is within normal limits. There is no infiltrate or effusion. The hilar structures do not appear pathologically enlarged. XR/XR chest 2V IMPRESSION: No acute finding.
[2022-04-05 15:13] VITALS: BP 152/87; PULSE 128; RESP 18; TEMP 37.2; O2SAT 98; BMI 54.9
[2022-04-05 16:46] LABS: MANUAL DIFF FLAG NO
[2022-04-05 16:48] LABS: Basophils Percent Auto 0.1 % (0-2); Eosinophils Absolute Auto 0.1 X10*3/uL (0.0-0.4); Eosinophils Percent Auto 0.6 % (0-4); Hemoglobin 13.9 g/dl (12.0-16.0); Imm Gran Abs Auto 0.04 X10*3/uL (0.00-0.03); Imm Gran Pct Auto 0.5 % (0.0-0.4); Lymphocytes Absolute Auto 0.8 X10*3/uL (1.2-4.9); Lymphocytes Percent Auto 9.5 % (20-40); Mean Corpuscular HGB Conc 31.6 g/dl (31.0-35.0); Mean Corpuscular Hemoglobin 27.1 pg (27.0-33.0); Mean Corpuscular Volume 85.8 fL (80.0-98.0); Mean Platelet Volume 9.7 fL (9.4-12.3); Monocytes Absolute Auto 0.5 X10*3/uL (0.1-1.2); Monocytes Percent Auto 5.9 % (2-11); Neutrophils Absolute Auto 7.3 x10*3/uL (2.0-8.3); Neutrophils Percent Auto 83.4 % (45-73); Platelet Count 291 X10*3/uL (160-400); Red Blood Count 5.13 X10*6/uL (4.20-5.50); Red Cell Distribution Width 13.5 % (11.0-16.0); White Blood Count 8.8 X10*3/uL (4.8-10.8)
[2022-04-05 16:50] LABS: Appearance Urine HAZY; Color Urine YELLOW; Glucose Urine UA NEG (NEG); Leukocyte Esterase Urine NEG (NEG); Nitrite Urine NEG (NEG); UACC Culture Trigger NO; Urine Blood 2+ (NEG); Urine Ketones NEG (NEG); Urine Protein NEG (NEG-TRACE)
[2022-04-05 16:59] LABS: Anion Gap 11 (12-20); Blood Urea Nitrogen 14 mg/dL (9-16); Calcium 9.1 mg/dL (8.4-10.2); Carbon Dioxide 25 mmol/L (22-29); Chloride 104 mmol/L (96-108); Creatinine Clr Calc Pharmacy 162.9; Estimated Glomerular Filt Rate > 60; Glucose Random 93 mg/dL (60-115); Potassium 4.9 mmol/L (3.3-5.1); Sodium 135 mmol/L (135-145)
[2022-04-05 17:02] LABS: Amorphous Sediment Urine 3+ /LPF; Squamous Epithelial Cell Urine 3+ /LPF; UPreg QC Valid YES; Urine Pregnancy NEGATIVE (NEGATIVE); WBC Urine 0 /HPF (0-4)
[2022-04-05 17:08] LABS: COVID-19 Test Negative (Negative); IDNOW Serial# 16C4AD1C
[2022-04-05 17:26] LABS: Influenza A Negative (Negative); Influenza B2 Negative (Negative)
== END 2022-04-05 23:52 | disposition left against medical advice (07) ==
PROVIDERS: Physician Assistant; Emergency Provider Emergency Medicine; PCP Internal Medicine
DX: R06.00 Dyspnea, unspecified (principal); R07.9 Chest pain, unspecified; R10.30 Lower abdominal pain, unspecified; J45.909 Unspecified asthma, uncomplicated; Z20.822 Contact with and (suspected) exposure to COVID-19
CPT/HCPCS: 36415; 71046; 80048; 81001; 81025; 85025; 87502; 87635; 99283

== ENCOUNTER 2025-01-21 07:56 | Outpatient (AMB) | payer OTHER, MEDICARE, MEDICAID, SELFPAY ==
--- OUTSIDE RECORDS SUMMARY | 2025-01-21 08:00 | XMS_ITS | Clinical Summary ---
Author Organization [address] Address [address] [place] [phone] Phone Care Team Providers Care [place] Man Name Role Phone Unavailable Primary Care Provider Unavailabl e Allergies Active Allergy Reactions Criticality Noted Date Comments Cephalexin 10/23/2020 Burning sensation all over body. Doxycycline Hyclate 10/23/2020 hives Penaten 02/20/2023 Penicillin G Hives High 02/17/2023 Pt stated had bad reaction. She had hives all over the body. Sulfa (Sulfonamide Antibiotics) 03/06/2021 Medications cloNIDine (UAPCLIWQ-FMB-4 ) 0.3 mg/[address] 1 Patch onto the skin once a week. 4 Active emollient comb no.2, bulk, ointment Apply 0.5 g topically 2 times daily. 5% gabapentin ointment Sig: Apply 0.5 g daily to affected area Patient phone number: [phone] (home) 3 Active cholecalciferol (VITAMIN D-3) 1,250 mcg (50,000 unit) capsule Take 1 Capsule by mouth once a week. 3 Active levonorgestreL (MIRENA) 21 mcg/24 hr (8 yrs) 52 mg IUD 1 Each by Intrauterine route Once. 2 07/05/20 27 Active famotidine (PEPCID) 20 mg tablet Take 1 tablet (20 mg total) by mouth 1 (one) time each day. 2 Active amLODIPine (NORVASC) 10 mg tablet Take 1 tablet (10 mg total) by mouth 1 (one) time each day. 2 Active nystatin-triamc inolone (MYCOLOG II) ointment Apply a thin layer to affected area twice daily x 2 weeks, then daily 1 Active gabapentin (NEURONTIN) 300 mg capsule Take 1 Cap by mouth 2 times daily as needed. 0 Active clindamycin phosphate 1 % gel, once daily APPLY TO UNDERARM DAILY 9 Active amphetamine-dex troamphetamine XR (ADDERALL XR) 20 mg 24 hr capsule 20 mg. ER 20MG Cap/ Takes one capsule by mouth every day 7 Active sertraline (ZOLOFT) 50 mg tablet Take 50 mg by mouth daily. 6 Active riboflavin (VITAMIN B2) 100 mg tablet Take 2 Tabs by mouth 2 times daily. 5 Active magnesium gluconate 12.5 mg magne- sium (250 mg) tablet Take 1 Tab by mouth 2 Times Daily. 5 Active Active Problems Problem Noted Date Diagnosed Date Central auditory processing disorder 08/27/2024 Overview (08/27/2024): according to [employer] [facility] hearing report dated 01-15-13 Report from 02-15-13- consistent with a Central Auditory Processing Disorder.- likely fixes ( maturation of auditory system typically completed by age 11 yr 12-16: same Last Assessment & Plan: Let me know if you need any assistance. Exotropia of left eye 08/27/2024 Overview (08/27/2024): 11-14 surgery for strabismus bilaterally -15: doing well -16: due for follow up- 11/09: due for F/U Last Assessment & Plan: Call for eye doctor follow up GERD (gastroesophageal reflux disease) 4 Overview (08/27/2024): Last Assessment & Plan: Continue to avoid foods that give you heartburn and use ranitidine if needed. If needing to use all the time follow up. Migraine with aura 08/27/2024 Overview (08/27/2024): Follows with Dr Campbell. On verapamil, topamax and fioricet for migraines Last Assessment & Plan: Continue with recommendations per neurology. Ask about using continuous control pill to prevent headaches at times of periods. Morbid obesity with BMI of 60.0-69.9, adult 02/2024 Chlamydia 11/14/2023 PCOS (polycystic ovarian syndrome) 05/30/2022 Overview (08/27/2024): Last Assessment & Plan: Continue with regulation with Mirena in place. High-tone pelvic floor dysfunction 09/18/2021 Overview (08/27/2024): Last Assessment & Plan: Improved, but not resolved. Encouraged to call and get an appt with pelvic floor PT. She agrees. She will continue dilation at home for now. Irregular menses 09/18/2021 Overview (08/27/2024): Last Assessment & Plan: I explained that it is likely the Tiffany which has caused her irregular menses recently, but that she still could have PCOS based on hirsutism and obesity with hypertension at such a young age. She agreed to have labs today. . 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 Well controlled. Refilled. COVID-19 virus detected 11/13/2020 Lichen simplex chronicus 10/11/2020 Overview (08/27/2024): Last Assessment & Plan: Resolved. Continue preventive Mycolog every other day. Elevated urine levels of catecholamines 11/15/20 Overview (08/27/2024): S/p Ct abdomen and pelvis normal no adenoma Essential hypertension 08/31/2019 Overview (08/27/2024): Elevated catecholamines of dopamine 24-hour urine sample pending Hirsutism 12/11/2017 Overview (08/27/2024): 12/11: Ped endo- due to increase androgens and obesity- recommend wt loss IUD and spironolactone; F/U 6 mon Chest pain 12/06/2017 Overview (08/27/2024): 11/25/17: at rest- [facility]: normal EKG, troponin, Lytes, BUN CBCD, HCG, CXR - MSK or anxiety related as possiblities AIDAN on CPAP 12/30/2016 Overview (08/27/2024): sleep study + 12-08-15; CPAP started 11-0801-08-17: adj to CPAP Last Assessment & Plan: Call the people who fitted you for the CPAP to get help in being able to use it nightly. Is important to help with headaches and overall health. Anxiety 11/08/2016 Overview (08/27/2024): Med provider Dr Riley through Clinical support options: uses sertraline daily and inderal as needed for performance anxiety and clonidine for sleep. Communication disability 12/21/2014 Overview (08/27/2024): 11-14: 3yr reevaluation CORE Memory problem 12/21/2014 Overview (08/27/2024): Updated Core testing report 10-05-14- WISC- IV full scale = 83 = low average Menorrhagia 07/14/2012 Overview (08/27/2024): Follows with [facility], has tiffany iud Last Assessment & Plan: Call ped endo for follow up appt. Asthma 06/20/2006 Overview (08/27/2024): Dr. Cummins; armen macedo 04-14-12: no controllers; no recent F/U Dr. Cummins Asthma Control Test Total Score: 16 started flovent 220 2 p daily 04-30-13: Asthma Control Test Total Score: 19 Interpetation of Score: < or equal to 19 Intervention Recommended ACT 7-14 = 20 6-11-15: [facility] - asthma exacerbation as of 08-08- no prob since 03-27-16: [facility] 5 d pred 40mg As of 11-08- off singulair for a week- refilled today, flovent 110 2 p daily; ACT 11/09: no contoller- using alb 1-2 a day- ACT 17- ref Dr. Cummins- to restart flovent Last Assessment & Plan: Use flovent inhaler (fluticasone) daily and take montelukast pill (singulair) nightly. These two medications are controllers to use daily to keep you healthy and prevent asthma. Use albuterol as needed for cough, wheeze or shortness of breath- this is the fast acting medication to use as needed. Referred back to Dr. Cummins today- call for an appointment. Attention deficit hyperactivity disorder (ADHD) 06/20/2006 Overview (08/27/2024): inattentive -concerta 04-14-12: not using any med As of 04-30-13: no meds 10-07 Updated CORE eval confirms dx of ADHD- accommodations in [employer]- full inclusion 03-07-15: normal EKG- done as baseline per stim use 08-08-15; Alanna Echeverria- wellbutrin started 04-0711-08-16: Dr. Terry Riley- wellbutrin XR 150 mg 11/09: continues with Dr. Riley- is now on adderall and zoloft and takes propranolol if performance anxiety- has not taken it Last Assessment & Plan: Continue seeing Dr. Riley. Let him know you have asthma. Immunizations Name Administration Dates Next Due DTaP (Infanrix) 6wks to less than 7yo ,07/17/2000,1999,09/04,1999 [id number] (Pentacel) 2mo to less than 5yo 06/18/2000,1999,1999,06/01 H1N1 Inj Preservative Free 12/22/2009 HPV, Quadrivalent 04/30/2013,07/14/2012,04/14/20 12 Hepatitis B (Kewdfif-Y-Qtdvl , Recombivax HB-Adult) 19yo and older 07/12/2020,02/09/2020,01/05/2020 Hepatitis B Pediatric (Enger ix B; Recombivax HB) to less than 20 yo 1999,1999,1999 IPV Inactivated polio (Ipol) 6wks and older 05/01/2004,06/12/2000,1999,06/01 Influenza Quadravalent, MDCK , 0.5ml, preservative free (Flucelvax) 6mo and older 10/06/2023 Influenza trivalent, 0.5mL, preservative free (Fluarix; FluLaval; Fluzone) ages 6mo and older (Afluria) 3 years and older 08/08/2015 Influenza trivalent, with pr eservative (Fluzone; Afluria) 6mo and older 09/04/2021,08/26/2019,09/05/2017,09/13,12/22/2009,09/27/2008,09/15/2007 ,09/08/2004 Influenza, Unspecified 10/11/2016 MMR, measles mumps and rubel la Live (Priorix; M-M-R II) 12mo and older 04/27/2003,06/12/2000 Meningococcal MCV4P 08/08/2015,04/14/2012 PPD Test 11/10/2019 [employer] SARS-CoV-2 COVID-19, mRNA, LNP-S, preservative free 09/04/2021 Pneumococcal Conjugate Vacci ne, 7 Valent 04/14/2001,07/17/2000 Pneumococcal conjugate 13 va lent (Prevnar 13, PCV13) 2mo and older 08/31/2019 Rabies Vaccine, For Intramus cular Injection Retired Code 04/09/2006,03/15/2006 Tdap Tetanus diptheria acell ular pertussis (Boostrix; Adacel) 7yo and older 04/11/2011 Varicella live (Varivax) 12m o and older 12/22/2009,06/12/2000 Surgical History Surgery Date Site/Laterality Comments TONSILLECTOMY age 2yr PROCEDURE: HISTORICAL TONSILLECTOMY TYMPANOSTOMY TUBE PLACEMENT age 1yr PROCEDURE: HISTORICAL PE TUBES OTHER SURGICAL HISTORY age 1.5yr PROCEDURE: ID BRONCHOSCOPY W/TRANSBRONCHIAL LUNG BX 1 LOBE EYE SURGERY PROCEDURE: HISTORICAL EYE SURGERY Medical History Medical History Date Comments Essential hypertension 08/31/2019 DX:Essent ial hypertension Migraine with aura DX:Migraine w ith aura; COMMENT: Naprosyn 04-14-12: worsening- started amitriptyline 25 mg hs Saw neurologist and is on topamax- now 100 mg 08-08-15: ped neuro- verapamil 40 mg bid in addition to [id number] mg hs; fioricet PRN, riboflavin, magnesium 10-10-15: reduced migraines since verapamil- 1/week or less; MRI with mild sinus disease ; ESR 33 but otherwise neg labs ; no changes in meds adn F/U 2-* Mild intermittent asthma, uncomplicated DX:Mild intermittent asthma, uncomplicated Obstructive sleep apnea DX:Obstr uctive sleep apnea Anxiety disorder DX:Anxiety diso rder Adhd DX:ADHD Family History Medical History Relation Name Comments Diabetes Maternal Grandfather Heart attack Maternal Grandfather Hypertension Maternal Grandfather Breast cancer Maternal Grandmother Hypertension Maternal Grandmother Asthma Mother Other: epilepsy Mother related to l upus Other: lupus Mother Other: migraines Mother Other: adhd Other cousin Relation Name Status Comments Father Alive 1967 jennifer Maternal Grandfather Maternal Grandmother Mother Alive 1966 genoveva Other Sister Alive 1983 danita Social History Tobacco Use Types Packs/Day Years Used Date Smoking Tobacco: Never Smokeless Tobacco: Never Alcohol Use Standard Drinks/Week Comments Yes 1 (1 standard drink = 0.6 oz pur e alcohol) Comments Unknown Sex and Gender Information Value Date Recorded Sex Assigned at Not on file Legal Sex Female 9:03 AM EST Gender Identity Not on file Sexual Orientation Not on file Obstetrics History Last Filed Vital Signs Vital Sign Reading Time Taken Comments Blood Pressure 145/81 03/10/2024 4:07 PM EDT Pulse 101 03/10/2024 4:07 PM EDT Temperature - - Respiratory Rate - - Oxygen Saturation - - Inhaled Oxygen Concentration - - Weight 170 kg (375 lb) 03/10/2024 4:07 PM EDT Height 162.6 cm (5' 4 ) 02/24/2024 9:05 AM EDT Body Mass Index 64.37 02/24/2024 9:05 AM EDT Plan of Treatment Upcoming Encounters Date Type Department Care Team (Late st Contact Info) Description 03/16/2025 4:00 PM EDT Office Visit Nephrology - [place] [address] [place] [phone] Christopher Pollard MD [address] [facility] [address] [place] [address] Health Maintenance Due Date Last Done Comments Pneumococcal Vaccine: Pediatrics (0 to 5 Years) and At-Risk Patients (6 to 64 Years) (1 of 1 - PPSV23) 10/26/2019 08/31/2019, 04/14/2001, 07/17/2000 HIV Screening 11/02/2022 Hepatitis C Screening 11/02/2022 Social Influencers of Health Screening 11/02/2022 COVID-19 Vaccine ( season) 2024 09/04/2021, 01/29/2021, 01/08/2021 Influenza Vaccine (#1) 2024 , 09/04/2021, 08/26/2019, Additional history exists Depression Screening 10/06/2024 10/06/2023 Hypertension/CHF/CAD Annual BMP Blood Test 01/21/2025 01/22/2024 Cervical Cancer Screening: Pap Smear 09/05/2025 09/05/2022, 09/05/2022, 09/05/2022 Cholesterol Screening (Lipid Panel) 12/06/2027 12/06/2022 DTaP,Tdap,and Td Vaccines (8 - Td or Tdap) 04/27/2031 04/27/2021, 04/11/2011, 05/01/2004, Additional history exists HIB Vaccines Completed 06/18/2000, 05/25, 1999, Additional history exists MMR Vaccines Completed 04/27/2003, 06/12/2000 IPV Vaccines Completed 05/01/2004, 05/25, 06/12/2000, Additional history exists Varicella Vaccines Completed 12/22/2009, 06/12/2000 HPV Vaccines Completed 04/30/2013, 06/25, 04/14/2012 Meningococcal ACWY Vaccine Completed 08/08/2015, Hepatitis B Vaccines Completed 07/12/2020, 02/09/2020, 01/05/2020, Additional history exists Gonorrhea/Chlamydia Screening Discontinued 11/13/2023 Hepatitis A Vaccines Aged Out No long er eligible based on patient's age to complete this topic Meningococcal B Vacine Aged Out No lo nger eligible based on patient's age to complete this topic RSV Immunization Patients Under 20 months Aged Out No longer eligible based on patient's age to complete this topic Procedures Procedure Name Priority Date/Time Associated Diagnosis Comments ANNUAL BMP BLOOD TEST Routine 01/22/2024 GONORRHEA/CHLAMYDIA SCRREENING Routine 11/13/2023 DEPRESSION SCREENING Routine 10/06/2023 LIPID PANEL Routine 12/06/2022 PAP SMEAR Routine 09/05/2022 from Last 3 Months or Most Recently Relevant to Health Maintenance Results * Annual BMP Blood Test (01/22/2024) Pathologist [facility] Annual BMP Blood Test abstracted [facility] Provider MD HEALTH MAINTENANCE Final Result * Gonorrhea/Chlamydia Screening (11/13/2023) Pathologist [facility] Gonorrhea/Chla mydia Screening abstracted [facility] Provider MD HEALTH MAINTENANCE Final Result * Depression Screening (10/06/2023) Pathologist [facility] Depression Screening abstracted [facility] Provider MD HEALTH MAINTENANCE Final Result * Lipid panel (12/06/2022) [facility] LDL/HDL Ratio 2 0 - 4 Triglycerides 71 0 - 150 mg/dL Cholesterol 117 0 - 200 mg/dL HDL 48 >=40 mg/dL LDL Cholesterol 55 0 - 100 mg/dL Blood Venous blood specimen / Unknown [facility] Provider LAB BLOOD ORDERABLES Praveena l Result * Pap smear (09/05/2022) 09/05/2022 Narrative HISTORICAL TESTING LAB RESULTING AGENCY - 09/12/2022 7:30 AM EDT [id number] THINPREP PAP, IMAGED: NEGATIVE FOR SQUAMOUS INTRAEPITHELIAL LESION AND MALIGNANCY . SHIFT IN ROSA, SUGGESTIVE OF BACTERIAL VAGINOSIS. CARMEN PHILLIPS , GARCÍA(ASCP) (CASE ELECTRONICALLY SIGNED 09 11 2022) ADEQUACY: SATISFACTORY ENDOCERVICAL/TRANSFORMATION ZONE COMPONENT PRESENT. SOURCE: THINPREP PAP HPV IF ASCUS, CERVICAL, IMAGED CLINICAL INFORMATION: HPV IF DIAGNOSIS OF ASCUS. [Z12.4] Yeni Lynch MD LAB CYTOLOGY ORDERABLES Fin al Result HISTORICAL TESTING LAB RESULTING AGENCY from Last 3 Months or Most Recently Relevant to Health Maintenance Insurance
--- NOTE | 2025-01-21 08:11 | MHC.PC.OV ---
Vital Signs 01/21/25 08:12 Height 5 ft 3.78 in Weight 374 lb 2 oz BMI 64.7 BP 120/76 Blood Pressure Location Lt brachial Position Sitting Pulse 95 Pulse Source Pulse Oximeter Temp 97.5 F Temp Source Temporal Artery Scan Pulse Oximetry (%) 96 Oxygen Delivery Method Room Air Intake Visit Reasons: establish care Intake Note: Patient is a new patient here to establish care for Asthma, HTN, Anxiety, PCOS, Headaches. Transferring care from [facility] ([place] Medical records have been requested and have not received. Merchandise For Resale Purchasing Agent Required: No Uniform Designer: Not Required per policy Accompanied by: Self / Same As Patient Allergies Penicillins Allergy (Intermediate, Verified 01/21/25 08:26) Hives Sulfa (Sulfonamide Antibiotics) Allergy (Intermediate, Verified 01/21/25 08:26) Hives doxycycline Allergy (Verified 01/21/25 08:26) Hives cephalexin [From Keflex] Adverse Reaction (Verified 01/21/25 08:26) Redness of Skin Medication List - Last Reconciled 01/21/25 by Iraida Woodruff PA-C amlodipine 10 mg PO DAILY cholecalciferol (vitamin D3) 1,250 mcg PO QWEEK clonidine 1 patch transdermal QWEEK dextroamphetamine-amphetamine 20 mg ER 1 cap PO QAM famotidine 20 mg PO DAILY gabapentin 300 mg PO BID levonorgestrel (Mirena) intrauterine magnesium gluconate 500 mg PO BID nystatin-triamcinolone 2 ea topical BID riboflavin (vitamin B2) 200 mg PO BID sertraline mg PO Tobacco use date assessed: 01/21/25 Dental Screening Dental Screen Date: 01/21/25 Did you have a dental visit in the last 12 months?: No Did you have a dental problem in the last 6 months where you did not have access to dental care?: No Was dental information given to patient?: No HPI establish care HPI Details 24-year-old female coming to the office for the 1st time. Presenting with symptoms indicative of diabetes, including polyuria, polydipsia, and neuropathic sensations. Known issues include hypertension unmedicated due to side effects, GERD, ADHD, PCOS, and migraines. The patient has previously stopped ADHD and anxiety medications due to conflicts with previous medical providers and insurance issues. [facility] Medical History (Updated 01/21/25 @ 08:46 by Iraida Woodruff PA-C) Asthma High blood pressure Surgical History (Updated 01/21/25 @ 08:35 by Iraida Woodruff PA-C) S/P tonsillectomy History of eye surgery Family History (Updated 01/21/25 @ 08:36 by Iraida Woodruff PA-C) Maternal Grandmother Breast cancer Social History Housing: Apartment Alcohol intake: current Alcohol intake frequency: holidays/special occasions only Patient Tobacco Use Status: Never used Tobacco e-Cigarette/Vaping Use: Never Used Second Hand Smoke Exposure: No service: No Current occupational status: employed Cognitive needs: No Hearing needs: No Vision needs: Yes (Glasses) Female Reproductive History Menstrual control method: progestin IUCD Questionnaire PHQ-9 Over the last 2 weeks, how often have you been bothered by any of the following problems? 1. Little interest or pleasure in doing things: several days 2. Feeling down, depressed, or hopeless: not at all 3. Trouble falling or staying asleep, or sleeping too much: several days 4. Feeling tired or having little energy: several days 5. Poor appetite or overeating: several days 6. Feeling bad about yourself - or that you are a failure or have let yourself or your family down: not at all 7. Trouble concentrating on things, such as reading the newspaper or watching television: several days 8. Moving or speaking so slowly that other people could have noticed. Or the opposite - being so fidgety or restless that you have been moving around a lot more than usual: several days 9. Thoughts that you would be better off or of hurting yourself in some way: not at all Total score: 6 Depression Screening Interpretation: Positive (refilled sertraline) Depression Screening Follow-up: Existing condition and In treatment Depression Screening Done: Yes Source: Developed by Drs. Hilario Kinney, Faye Azar, Yoseph Thibodeaux and colleagues, with an educational natasha from [employer]. Thrive Questionnaire Date Thrive assessed: 01/14/25 I am a: Patient What is your living situation today?: I have a steady place to live Within the past 12 months, did the food you bought not last and you didn't have the money to get more?: I choose not to answer this question Within the past 12 months, did you worry whether your food would run out before you got money to buy more?: I choose not to answer this question Do you have trouble paying for medicines?: No Do you have trouble getting transportation to medical appointments?: No Do you have trouble paying your heating and electricity bill?: I choose not to answer this question Do you have trouble taking care of your child, family member or friend?: No Do you have trouble with day-to-day activities such as bathing, preparing meals, shopping, managing finances, etc.?: No Are you currently unemployed and looking for a job?: No Are you interested in more education?: I choose not to answer this question Please select the resources that you would like help with: None Currently or been in a relationship where the following occur: No concerns reported THRIVE Score: 0 AUDIT C Alcohol Use Questionnaire (AUDIT-C) 1. How often do you have a drink containing alcohol?: Monthly or less 2. How many drinks containing alcohol do you have on a typical day when you are drinking?: 1 or 2 3. How often do you have six or more drinks on one occasion?: Never Total Score: 1 CANDE-7 AMB Questionnaire CANDE-7 Date CANDE - 7 assessed: 01/21/25 Feeling nervous, anxious, or on edge: 1 = Several days Not being able to stop or control worryin = Several days Worrying too much about different things: 1 = Several days Trouble relaxin = Several days Being so restless that it is hard to sit still: 0 = Not at all Becoming easily annoyed or irritable: 1 = Several days Feeling afraid as if something awful might happen: 0 = Not at all Total CANDE-7 score (0-4 normal; 5-9 mild; 10-14 moderate; 15-21 severe): 5 Source: Developed by Drs. Hilario Kinney, Faye Azar, Yoseph Thibodeaux and colleagues, with an educational natasha from [employer] CANDE-7 Assessment Billing CANDE-7 Assessment Tool: CANDE-7 Assessment 51602 Review of Systems Const Denies body aches, Denies chills, Denies fever(s) and Denies poor appetite Eyes Reports no additional complaints ENT Denies dizziness and Denies odynophagia Card Denies chest pain, Denies syncope, Denies lightheadedness and Denies dyspnea Resp Details: occasional asthma Denies cough and Denies dyspnea GI Denies abdominal pain, Denies nausea, Denies odynophagia and Denies vomiting Reports no additional complaints Musc Reports no additional complaints and Denies abnormal gait Skin/Breast Reports system reviewed and no additional complaints, except as documented Neuro Denies abnormal gait, Denies dizziness and Denies syncope Psych Reports no additional complaints Physical exam (Primary Care) Tobacco/Smoking Status: Tobacco use Status Patient Tobacco Use Status Never used Tobacco 01/21/25 08:11 Depression Screening Interpretation: Positive (refilled sertraline) Depression Screening Follow-up: Existing condition and In treatment Thrive Assessment: Date of Thrive Assessment Date Thrive assessed 01/14/25 01/14/25 12:11 Currently or been in a relationship where the following occur: No concerns reported Const General: cooperative, healthy appearing, comfortable and no acute distress Orientation/consciousness: patient oriented x3 HENMT Head: Yes normocephalic Ears: hearing grossly normal bilaterally General nose exam: Normal external nose present Eyes General: appearance normal, both eyes and all related structures Conjunctivae: conjunctivae normal Neck Neck: Yes full ROM and Yes no lymphadenopathy Resp Effort & Inspection: normal respiratory effort Auscultation: clear to auscultation bilaterally, no crackles, no rales, no rhonchi and no wheezes Cardio Rate: regular rate Rhythm: regular rhythm Skin General skin exam: no rashes or lesions noted Neuro General: patient oriented x3 Gait exam (Neuro): Normal gait present Extrem General: Yes normal to inspection, Yes full ROM and No edema Psych Affect: normal affect Attitude: cooperative Insight: Good insight present (Psych) Judgement: Good judgement present (Psych) Coding Level of Care Code New Pt Level 4 (71194) Diagnoses Morbid obesity with BMI of 50.0-59.9, adult E66.01; Z68.43 High blood pressure I10 Asthma J45.909 Migraine G43.909 Depression F32.A Anxiety F41.9 PCOS (polycystic ovarian syndrome) E28.2 ADHD F90.9 GERD (gastroesophageal reflux disease) K21.9 Obstructive sleep apnea G47.33 Additional Codes CANDE-7 Assessment Billing - CANDE-7 Assessment Tool: CANDE-7 Assessment 54093 ([id number]) Assessment & Plan Assessment & Plan (1) Morbid obesity with BMI of 50.0-59.9, adult: Code(s): E66.01 - Morbid (severe) obesity due to excess calories; Z68.43 - Body mass index [BMI] 50.0-59.9, adult Category: Medical Plan: Healthy diet and regular exercise is encouraged. (2) High blood pressure: Code(s): I10 - Essential (primary) hypertension Category: Medical Plan: Plan to restart on lower dose of the amlodipine at 5 mg to ensure maintaining adequate blood pressure. Plan to follow up in 2 weeks with nurse navigator in 6 weeks in our office. Advised patient to continue take blood pressures at home. Avoid salt intake and encourage healthy diet and regular exercise. (3) Asthma: Code(s): J45.909 - Unspecified asthma, uncomplicated Category: Medical Plan: Asthma currently controlled on present medications. Continue on albuterol as needed. Avoid triggers such as allergies. (4) Migraine: Code(s): G43.909 - Migraine, unspecified, not intractable, without status migrainosus Category: Medical Plan: Manage his headaches with Tylenol and ibuprofen as needed. (5) Depression: Code(s): F32.A - Depression, unspecified Category: Medical Plan: Currently being treated with sertraline 50 mg prescription was refilled today. Referral placed to outpatient psych clinic. (6) Anxiety: Code(s): F41.9 - Anxiety disorder, unspecified Category: Medical Plan: Currently being treated with sertraline 50 mg prescription was refilled today. Referral placed to outpatient psych clinic. (7) PCOS (polycystic ovarian syndrome): Code(s): E28.2 - Polycystic ovarian syndrome Category: Medical Plan: Referral placed to gynecology for further management. Requesting results from previous machine plaster mixer (8) ADHD: Code(s): F90.9 - Attention-deficit hyperactivity disorder, unspecified type Category: Medical Plan: Patient states she was previously being treated with Adderall. Referral placed outpatient psych clinic for evaluation and treatment (9) GERD (gastroesophageal reflux disease): Code(s): K21.9 - Gastro-esophageal reflux disease without esophagitis Category: Medical Plan: Avoid trigger foods such as citrus, tomato products, soda, caffeine, spicy foods and other foods that may be irritating to your stomach. Avoid laying flat 3-4 hours after eating and elevate the head of the bed 30 degrees to prevent acid from moving into the esophagus. Continue on famotidine (10) Obstructive sleep apnea: Code(s): G47.33 - Obstructive sleep apnea (adult) (pediatric) Category: Medical Plan: Patient was evaluated by sleep Medicine determined to have obstructive sleep apnea and was given CPAP. She was told she would need to be on BiPAP and was awaiting settings on her machine when her insurance lapsed. Referral placed to sleep medicine today. Plan Patient was informed and verbally consented to the use of an ambient scribe for clinic note documentation during this visit. This note was constructed using voice recognition software. While every effort has been made to ensure accuracy and airport operations coordinator, still areas may have been included sometimes these areas may affect the content or meeting of the given symptoms. Total time spent caring for the patient today was 30 minutes. This includes time spent before the visit reviewing the chart, time spent during the visit, and time spent after the visit and documentation. Orders: Orders Lipid Panel Today E78.00 - Pure hypercholesterolemia, unspecified Comprehensive Met. Panel Today Z00.00 - Encounter for general adult medical examination without abnormal findings Complete Blood Count Auto Diff Today Z00.00 - Encounter for general adult medical examination without abnormal findings TSH reflex Free T4 Today Z00.00 - Encounter for general adult medical examination without abnormal findings Free T4 (Free Thyroxine) Today Z00.00 - Encounter for general adult medical examination without abnormal findings Vitamin B12 and Folate Today Z00.00 - Encounter for general adult medical examination without abnormal findings Vitamin D 25-OH Total Today Z00.00 - Encounter for general adult medical examination without abnormal findings Hemoglobin A1c Today R35.89 - Other polyuria Referrals FLIGHT RADIO OFFICER Referral E28.2 - Polycystic ovarian syndrome, Z12.4 - Encounter for screening for malignant neoplasm of cervix Psychiatry Outpatient Consultation Service F32.A - Depression, unspecified, F41.9 - Anxiety disorder, unspecified, F90.9 - Attention-deficit hyperactivity disorder, unspecified type Sleep Medicine Referral G47.33 - Obstructive sleep apnea (adult) (pediatric) Medications: New sertraline 50 mg PO DAILY 90 tabs 0RF albuterol sulfate 90 mcg/actuation 1 inh inhalation QID PRN 8.5 grams 1RF shortness of breath or wheezing amlodipine 5 mg PO DAILY 90 tabs 0RF cholecalciferol (vitamin D3) 1,250 mcg PO QWEEK 90 caps 0RF famotidine 20 mg PO DAILY 90 tabs 0RF Discontinued doxycycline monohydrate Discontinued Reason: Patient Completed Course 100 mg PO BID 14 caps 0RF fluconazole (Diflucan) take 1 pill 2 days after antibiotic is finished Discontinued Reason: Patient Completed Course 150 mg PO DAILY 1 tab 0RF clindamycin HCl Discontinued Reason: Patient Completed Course 300 mg PO Q6H 5 days 20 caps 0RF clindamycin HCl Discontinued Reason: Patient Completed Course 300 mg PO Q6H 28 caps 0RF sulfamethoxazole-trimethoprim 800-160 mg (Bactrim DS) Discontinued Reason: Patient Completed Course 1 tab PO BID 5 tabs 0RF dimethicone 1.2% (Monistat Soothing Care) Discontinued Reason: Patient Completed Course 1 appl topical QID PRN 42 grams 0RF skin irritation
[2025-01-21 08:12] VITALS: BP 120/76; PULSE 95; TEMP 36.4; O2SAT 96; BMI 64.7
== END 2025-01-21 08:50 | disposition home or self-care (01) ==
PROVIDERS: PCP Internal Medicine
DX: E66.01 Morbid (severe) obesity due to excess calories (principal); Z68.43 Body mass index [BMI] 50.0-59.9, adult; I10 Essential (primary) hypertension; J45.909 Unspecified asthma, uncomplicated; G43.909 Migraine, unspecified, not intractable, without status migrainosus; F32.A Depression, unspecified; F41.9 Anxiety disorder, unspecified; E28.2 Polycystic ovarian syndrome; F90.9 Attention-deficit hyperactivity disorder, unspecified type; K21.9 Gastro-esophageal reflux disease without esophagitis; G47.33 Obstructive sleep apnea (adult) (pediatric)

== ENCOUNTER 2025-01-21 07:56 | Outpatient (REF) | payer MEDICARE, SELFPAY ==
[2025-01-21 09:30] LABS: MANUAL DIFF FLAG NO
--- OUTSIDE RECORDS SUMMARY | 2025-01-21 09:46 | XMS_ITS | Clinical Summary ---
Author Organization [address] Address [address] [place] [phone] Phone Care Team Providers Care Textile Dyer Name Role Phone Unavailable Primary Care Provider Unavailabl e Allergies Active Allergy Reactions Criticality Noted Date Comments Cephalexin 10/23/2020 Burning sensation all over body. Doxycycline Hyclate 10/23/2020 hives Penaten 02/20/2023 Penicillin G Hives High 02/17/2023 Pt stated had bad reaction. She had hives all over the body. Sulfa (Sulfonamide Antibiotics) 03/06/2021 Medications cloNIDine (LQKSTCIV-FAU-9 ) 0.3 mg/[address] 1 Patch onto the skin once a week. 4 Active emollient comb no.2, bulk, ointment Apply 0.5 g topically 2 times daily. 5% gabapentin ointment Sig: Apply 0.5 g daily to affected area Patient phone number: [phone] (home) 3 Active cholecalciferol (VITAMIN D-3) 1,250 [...] processing disorder 08/27/2024 Overview (08/27/2024): according to [facility] hearing report dated 01-15-13 Report from [...] average Menorrhagia 07/14/2012 Overview (08/27/2024): Follows [facility], has tiffany iud Last Assessment & [...] Recommended ACT 7-14 = 20 6-11-15: [facility] as of 08[facility]08- no prob since 03-27-16: [facility] 40[facility] As of [...] eval confirms dx of ADHD- accommodations in [employer], [employer]- full inclusion 03-07-15: normal [...] (Infanrix) 6wks to less than 7yo ,07/17/2000,1999,09/04,1999 QCuT-VQJ-REX (Pentacel) 2mo to less than 5yo 06/18/2000,1999,1999,06/01 H1N1 Inj Preservative Free 12/22/2009 HPV, Quadrivalent 04/30/2013,07/14/2012,04/14/20 12 Hepatitis B (Jhixsie-F-Jenwn , Recombivax HB-Adult) 19yo and older 07/12/2020,02/09/2020,01/05/2020 [...] 04/27/2003,06/12/2000 Meningococcal MCV4P 08/08/2015,04/14/2012 PPD Test 11/10/2019 [employer] SARS-CoV-2 COVID-19, mRNA, LNP-S, preservative free 09/04/2021 [...] TUBES OTHER SURGICAL HISTORY age 1.5yr PROCEDURE: SC BRONCHOSCOPY W/TRANSBRONCHIAL LUNG BX 1 LOBE EYE SURGERY PROCEDURE: HISTORICAL EYE SURGERY Medical History Medical History Date Comments Essential hypertension 08/31/2019 DX:Essent ial hypertension Migraine with aura DX:Migraine w ith aura; COMMENT: Naprosyn 04-14-12: worsening- started amitriptyline 25 mg hs Saw neurologist and is on topamax- now 100 mg 08-08-15: ped neuro- verapamil 40 mg bid in addition to [id number] mg hs; fioricet PRN, riboflavin, magnesium 10-10-15: [...] 4:00 PM EDT Office Visit Nephrology - [place] [address] [place] [address] Christopher Pollard MD [address] [facility] [address] [place] [address] Health Maintenance Due Date Last [...] * Annual BMP Blood Test (01/22/2024) Pathologist [facility] Annual BMP Blood Test abstracted [facility] Provider MD HEALTH MAINTENANCE Final Result * Gonorrhea/Chlamydia Screening (11/13/2023) Pathologist [facility] Gonorrhea/Chla mydia Screening abstracted [facility] Provider MD HEALTH MAINTENANCE Final Result * Depression Screening (10/06/2023) Pathologist [facility] Depression Screening abstracted [facility] Provider MD HEALTH MAINTENANCE Final Result * Lipid panel (12/06/2022) [facility] LDL/HDL Ratio 2 0 - 4 Triglycerides 71 0 - 150 mg/dL Cholesterol 117 0 - 200 mg/dL HDL 48 >=40 mg/dL LDL Cholesterol 55 0 - 100 mg/dL Blood Venous blood specimen / Unknown [facility] Provider LAB BLOOD ORDERABLES Praveena l Result * Pap smear (09/05/2022) 09/05/2022 Narrative HISTORICAL TESTING LAB RESULTING AGENCY - 09/12/2022 7:30 AM EDT [id number] THINPREP PAP, IMAGED: NEGATIVE FOR SQUAMOUS INTRAEPITHELIAL [...]
--- OUTSIDE RECORDS SUMMARY | 2025-01-21 09:46 | XMS_ITS | Patient Health Record ---
Author Organization [employer] Address [address] [place] [address] Support Name Relationship Address Phone Nena Zafar Guarantor Unknown [phone] Allergies Allergen (clinical drug ingredient) Drug/Non Drug Allergy documented on EMR Reaction Allergy Type Onset Date Status Keflex hives Drug Allergy Active doxycycline Doxycycline hives Drug Allergy Act iván Substance with sulfonamide structure and antibacterial mechanism of action (substance) Sulfa Antibiotics hives Drug Allergy Active Reason For Referral No Information Medications Medication SIG (Take, Route, Frequency, Duration) Notes Start Date End Date Status cloNIDine HCl 0.1 MG 1 tablet Orally Onc e a day Active Famotidine 20 MG 1 tablet at bedtime as needed Orally Once a day Active amLODIPine Besylate 10 MG 1 tablet Orally Once a day Active Mirena Active Sertraline HCl 50 MG 1 tablet Orally Onc e a day Active Gabapentin 300 MG 1 capsule Orally twice a day Active Spironolactone 25 MG 1 tablet Orally Onc e a day Active Adderall XR 20 MG 1 capsule in the morning Orally Once a day not given by fernando Active Vitamin D3 50 MCG (1999) 1 tablet Orally Once a day Active Social History Tobacco Use: Social History Observation Description Date Details (start date - stop date) Never Smoker NA - NA Tobacco Use/Smoking Question Answer Notes Are you a nonsmoker Alcohol Screen (Audit-C) Question Answer Notes Did you have a drink containing alcohol in the p ast year? No Points 0 Interpretation Negative Problems Problem Type SNOMED Code ICD Code Onset Dates Problem Status W/U Status Risk Notes Problem Morbid obesity (disorder) (690822969) Morbid (severe) obesity due to excess calories (E66.01) Active confirmed Problem Generalized anxiety disorder (21359186) Generalized anxiety disorder (F41.1) Active confirmed Problem Migraine with aura (0961714) Migraine with aura, not intractable, without status migrainosus (G43.109) Active confirmed Problem Obstructive sleep apnea syndrome (disorder) (59966120) Obstructive sleep apnea (adult) (pediatric) (G47.33) Active confirmed Problem Essential hypertension (10836231) Essential (primary) hypertension (I10) Active confirmed Problem Mild intermittent asthma (847339673) Mild intermittent asthma, uncomplicated (J45.20) Active confirmed Problem Gastro-esophagea l reflux disease without esophagitis (313263061) Gastro-esophageal reflux disease without esophagitis (K21.9) Active confirmed Problem Attention and concentration deficit (R41.840) Active confirmed Plan Of Treatment No Information Insurance Providers Payer Name Payer Address Payer Phone Subscriber Number Group Number Insured Name Patient Relationship to Insured Coverage Start Date Coverage End Date [facility] [address] [place] [phone] [id number] Nena Ballard Self - patient is the insured Medical (General) History Medical History History ICD Code Generalized anxiety disorder/major depre ssive disorder, sees psychiatry ADD GERD Mild intermittent asthma Migraine headaches with aura Hypertension AIDAN cannot tolerate CPAP Surgical History Surgery Date(Month/Year) strabismus surgery
[2025-01-21 10:20] LABS: Basophils Absolute Auto 0.1 X10*3/uL (0.0-0.2); Basophils Percent Auto 0.6 % (0-2); Eosinophils Absolute Auto 0.1 X10*3/uL (0.0-0.4); Eosinophils Percent Auto 1.5 % (0-4); Hemoglobin 13.5 g/dl (12.0-16.0); Imm Gran Abs Auto 0.03 X10*3/uL (0.00-0.03); Imm Gran Pct Auto 0.4 % (0.0-0.4); Lymphocytes Absolute Auto 1.8 X10*3/uL (1.2-4.9); Lymphocytes Percent Auto 22.5 % (20-40); Mean Corpuscular HGB Conc 31.4 g/dl (31.0-35.0); Mean Corpuscular Hemoglobin 27.3 pg (27.0-33.0); Mean Platelet Volume 9.9 fL (9.4-12.3); Monocytes Absolute Auto 0.6 X10*3/uL (0.1-1.2); Monocytes Percent Auto 7.4 % (2-11); Neutrophils Absolute Auto 5.5 x10*3/uL (2.0-8.3); Neutrophils Percent Auto 67.6 % (45-73); Platelet Count 272 X10*3/uL (160-400); Red Blood Count 4.94 X10*6/uL (4.20-5.50); Red Cell Distribution Width 14.1 % (11.0-16.0); White Blood Count 8.1 X10*3/uL (4.8-10.8)
[2025-01-21 10:31] LABS: Estimated Average Glucose 120 mg/dL; Hemoglobin A1c % 5.8 % (<6.0)
[2025-01-21 11:12] LABS: Alanine Aminotransferase 14 U/L (0-31); Albumin Level 3.8 g/dL (3.5-5.0); Anion Gap 10 (12-20); Aspartate Amino Transferase 19 U/L (5-31); Bilirubin Total 0.4 mg/dL (0.0-1.0); Blood Urea Nitrogen 11 mg/dL (9-16); Calcium 9.2 mg/dL (8.4-10.2); Carbon Dioxide 29 mmol/L (22-29); Chloride 105 mmol/L (96-108); Cholesterol 132 mg/dL (<200); Estimated Glomerular Filt Rate > 60; Glucose Random 85 mg/dL (60-115); HDL Cholesterol 45 mg/dL (>40); LDL Cholesterol Calculated 77 mg/dL (<100); Potassium 4.6 mmol/L (3.3-5.1); Sodium 139 mmol/L (135-145); Total Protein 7.7 g/dL (6.5-8.0); Triglycerides 51 mg/dL (<150)
[2025-01-21 11:13] LABS: Alkaline Phosphatase 73 U/L (39-117); Free T4 (Free Thyroxine) 1.05 ng/dL (0.71-1.85); TSH reflex Free T4 2.12 uIU/mL (0.32-4.0)
[2025-01-21 11:29] LABS: Folate 5.9 ng/mL (> or = 4.0); Vitamin B12 566 pg/mL (200-900)
== END 2025-01-21 07:57 | disposition home or self-care (01) ==
LOC: HO.LAB 07:56
DX: Z76.89 Persons encountering health services in other specified circumstances (principal); R35.89 Other polyuria; I10 Essential (primary) hypertension; K21.9 Gastro-esophageal reflux disease without esophagitis; F90.9 Attention-deficit hyperactivity disorder, unspecified type; J45.909 Unspecified asthma, uncomplicated; E28.2 Polycystic ovarian syndrome; E66.01 Morbid (severe) obesity due to excess calories; Z68.43 Body mass index [BMI] 50.0-59.9, adult; F41.9 Anxiety disorder, unspecified; F32.A Depression, unspecified; G47.33 Obstructive sleep apnea (adult) (pediatric); Z79.899 Other long term (current) drug therapy; Z00.00 Encounter for general adult medical examination without abnormal findings
CPT/HCPCS: 36415; 80053; 80061; 82306; 82607; 82746; 83036; 84439; 84443; 85025; 96127; 99202

== ENCOUNTER 2025-02-07 14:27 | Outpatient (AMB) | payer MEDICARE, MEDICAID, SELFPAY ==
[2025-02-07 14:34] VITALS: BP 130/90; PULSE 105; O2SAT 96; BMI 66.4
--- NOTE | 2025-02-07 14:34 | A.OFFVIS_ITS ---
Vital Signs 02/07/25 14:34 Height 5 ft 3 in Weight 375 lb BMI 66.4 BP 130/90 H Blood Pressure Location Rt brachial Position Sitting Pulse 105 H Pulse Source Pulse Oximeter Pulse Oximetry (%) 96 Oxygen Delivery Method Room Air Intake Visit Reasons: INP-[facility] Intake Note: Patient presents for inpatient referral [facility] Professional Services Consultant Required: No Accompanied by: Self / Same As Patient Allergies Penicillins Allergy (Intermediate, Verified 02/07/25 14:34) Hives Sulfa (Sulfonamide Antibiotics) Allergy (Intermediate, Verified 02/07/25 14:34) Hives doxycycline Allergy (Verified 02/07/25 14:34) Hives cephalexin [From Keflex] Adverse Reaction (Verified 02/07/25 14:34) Redness of Skin HPI Comments Details: 24 year r. handed female referred to us by her PCP CHERYL Freeman. She had a CPAP machine and stopped using it due to claustrophobia. She has difficulty staying asleep, snoring loudly, talking in her sleep, she feels hot and uncomfortable. Pulmonology testing at Dr. Banegas's office evaluation of asthma, Bipap recommended however insurance did not cover it. She has numbness and tingling bilaterally in the dorsal aspect of her hands and L. foot plantar surface. The numbness is worse in the feet bilaterally when she is sitting, increases in hands when she does tasks like building, chopping, cooking. She has to shake her hands vigorously and it subsides. She wears glasses and her vision is stable has entropia of L. eye, surgical procedure did not completely correct the Amblyopia. She has 1-2 headaches a week, L. side of the head goes numb, back of the head has pressure and tightness on the L. side, frontal to occipital migrating back to the base of the neck, with the onset of throbbing and sharp pressure that goes away when she lies down in a dark room. She denies photophobia/ phonophobia and hyperosmia. She was taking Gabapentin for headaches 300mg PO BID, stopped due to feeling tired. Her mood is anxious but well controlled with Zoloft 50mg po daily. She had a LBP injury, with pain shooting down her legs bilaterally, she can not get out of bed some days, and needs to soak in epsom salt bath, heat makes it worse. She denies RLS. She has high blood pressure and takes 5mg PO Amlodipine daily, her bp is 130/90 and pulse is 105H, she feels dizzy in the morning and has headaches. She has a f/h lupus and epilepsy, she is prone to kidney stones and has PCOS. She does not smoke, drink or do edibles or vaping of MJ. [facility] Medical History (Updated 02/09/25 @ 09:49 by Benson Turner PA-C) Asthma High blood pressure Surgical History S/P tonsillectomy History of eye surgery Family History Maternal Grandmother Breast cancer Social History Housing: Apartment Alcohol intake: current Alcohol intake frequency: holidays/special occasions only Patient Tobacco Use Status: Never used Tobacco e-Cigarette/Vaping Use: Never Used Second Hand Smoke Exposure: No service: No Current occupational status: employed Cognitive needs: No Hearing needs: No Vision needs: Yes (Glasses) Review of Systems Eyes Reports other (L. eye entropia ) Physical Exam Vital Signs: Last Vital Signs Pulse 105 H 02/07/25 14:34 BP 130/90 H 02/07/25 14:34 Pulse Ox 96 02/07/25 14:34 Oxygen Delivery Method Room Air 02/07/25 14:34 BMI result Body Mass Index 66.4 BMI is elevated to 66.4 and patient coughs between sentences, she has asthma. Const General: cooperative, no acute distress and tired appearing Nutritional Appearance: obese Orientation/consciousness: patient oriented x3 HEENT Face and sinus: Yes face symmetric Throat: Yes other ([place] score of 4) Eyes Pupils: Equal, round and reactive pupils present Neck Other: Very tight scalene and trapezius. Neck: Yes full ROM and Yes supple Resp Effort & Inspection: able to speak in complete sentences and Actively coughing Neuro General: patient oriented x3 and moves all extremities Cranial nerves: Yes Facial sensation intact/muscles of mastication intact, Yes Equal, round and reactive pupils present, Yes Normal accommodation reflex present, Yes Bilaterally intact EOM present, Yes Midline tongue present, Yes Ability to bilaterally rotate head present (pain on lateral rom to the l/r) and Yes Ability to bilaterally elevate shoulders present Gait exam (Neuro): Normal gait present Motor exam (neuro): 5/5 motor strength present throughout and Normal motor muscle tone present throughout Deep tendon reflexes (DTR's): Right triceps reflex intensity grade: 2+, Left triceps reflex intensity grade: 2+, Rt Biceps (C5, C6): 2+, Left biceps reflex intensity grade: 2+, Right brachioradialis reflex intensity grade: 2+, Left brachioradialis reflex intensity grade: 2+, Right patellar reflex intensity grade: 2+ and Left patellar reflex intensity grade: 2+ Psych Appearance: grossly normal Thought process: Normal thought process present Thought content: Normal thought content present Assessment & Plan Assessment & Plan (1) Fatigue due to sleep pattern disturbance: Code(s): R53.83 - Other fatigue; G47.9 - Sleep disorder, unspecified Category: Medical (2) History of difficulty sleeping: Code(s): Z72.821 - Inadequate sleep hygiene Category: Medical (3) High blood pressure: Code(s): I10 - Essential (primary) hypertension Category: Medical Qualifiers: Hypertension type: primary hypertension Qualified Code(s): I10 - Essential (primary) hypertension (4) Anxiety: Code(s): F41.9 - Anxiety disorder, unspecified Category: Medical (5) Loud snoring: Code(s): R06.83 - Snoring Category: Medical (6) Morbid obesity with BMI of 60.0-69.9, adult: Code(s): E66.01 - Morbid (severe) obesity due to excess calories; Z68.44 - Body mass index [BMI] 60.0-69.9, adult Category: Medical Plan Labs to r/o fatigue and deficiencies. Sleep Study in lab due to asthma BMI is 66.4 Weight Management F/U in 3 months Orders: Orders IRON PROFILE 02/07/25 G47.9 - Sleep disorder, unspecified, R53.83 - Other fatigue Methylmalonic Acid 02/07/25 G47.9 - Sleep disorder, unspecified, R53.83 - Other fatigue Ferritin 02/07/25 G47.9 - Sleep disorder, unspecified, R53.83 - Other fatigue, Z72.821 - Inadequate sleep hygiene RT PSG in-lab sleep study 02/07/25 E66.01 - Morbid (severe) obesity due to excess calories, G47.9 - Sleep disorder, unspecified, R53.83 - Other fatigue, Z68.43 - Body mass index [BMI] 50.0-59.9, adult, Z72.821 - Inadequate sleep hygiene Homocysteine 02/07/25 E66.01 - Morbid (severe) obesity due to excess calories, G47.9 - Sleep disorder, unspecified, R53.83 - Other fatigue, Z68.43 - Body mass index [BMI] 50.0-59.9, adult Referrals Medical Weight Management Referral E66.01 - Morbid (severe) obesity due to excess calories Patient Instructions: Sleep hygiene provided, sleep in a dark cool environment with temperatures below 68, no devices in bed, may read a book, limit fluids 2 hours prior to bedtime. May do gentle yoga for sleep, diffuse essential oils and play soft music. HTN monitor bp, the #1 modifiable risk factor for cardiovascular events is high blood pressure. BMI is elevated referred to weight management for nutritional guidelines and support in caloric intake vs. expenditure. Coding Level of Care Code New Pt Level 4 (02544) Diagnoses Fatigue due to sleep pattern disturbance R53.83; G47.9 History of difficulty sleeping Z72.821 Primary hypertension I10 Hypertension type: primary hypertension Anxiety F41.9 Loud snoring R06.83 Morbid obesity with BMI of 60.0-69.9, adult E66.01; Z68.44 Time Spent (min) 35 Comment Evaluation of Sleep Apnea Sleep Questionnaire Difficulty falling asleep: No Difficulty staying asleep?: Yes Number of arousals: 2-3 Snoring: Yes Witnessed apneas: Yes Gasping arousals: Yes Nocturia: No GERD: Yes Vivid dreams: Yes Acting out dreams: Yes (talking ) Abnormal behavior in sleep: Yes Abnormal movements in sleep: Yes (her arms flailing and pulling mom's hair.) Morning headaches: Yes Excessive daytime sleepiness: Yes Daytime naps: Yes Restless legs: Yes Hallucinations: No Sleep paralysis: No Drop attacks: No Sleep Study: Yes CPAP: No
--- OUTSIDE RECORDS SUMMARY | 2025-02-07 16:56 | XMS_ITS | Clinical Summary ---
Author Organization [address] Address [address] [place] [phone] Phone Care Team Providers Care Photonic Laboratory Technician Name Role Phone Unavailable Primary Care Provider Unavailabl e Allergies Active Allergy Reactions Criticality Noted Date Comments Cephalexin 10/23/2020 Burning sensation all over body. Doxycycline Hyclate 10/23/2020 hives Penaten 02/20/2023 Penicillin G Hives High 02/17/2023 Pt stated had bad reaction. She had hives all over the body. Sulfa (Sulfonamide Antibiotics) 03/06/2021 Medications cloNIDine ([id number]-[id number]-9 ) 0.3 mg/[address] 1 Patch onto the skin once a week. 4 Active emollient comb no.2, bulk, ointment Apply 0.5 g topically 2 times daily. 5% gabapentin ointment Sig: Apply 0.5 g daily to affected area Patient phone number: [phone] (home) 3 Active cholecalciferol (VITAMIN D-3) 1,250 [...] processing disorder 08/27/2024 Overview (08/27/2024): according to [facility] hearing report dated 01-15-13 Report from 02-15-13- [...] average Menorrhagia 07/14/2012 Overview (08/27/2024): Follows [facility], has tiffany iud Last Assessment & [...] Recommended ACT 7-14 = 20 [facility] as of 08-08- no prob since 03-27-16: [facility] d [facility] 40mg As of [...] eval confirms dx of ADHD- accommodations in [facility] [employer]- full inclusion 03-07-15: normal [...] (Infanrix) 6wks to less than 7yo ,07/17/2000,1999,09/04,1999 HQwF-TUR-HRK (Pentacel) 2mo to less than 5yo 06/18/2000,1999,1999,06/01 H1N1 Inj Preservative Free 12/22/2009 HPV, Quadrivalent 04/30/2013,07/14/2012,04/14/20 12 Hepatitis B (Hkpqcrx-N-Mvfmw , Recombivax HB-Adult) 19yo and older 07/12/2020,02/09/2020,01/05/2020 [...] 04/27/2003,06/12/2000 Meningococcal MCV4P 08/08/2015,04/14/2012 PPD Test 11/10/2019 [facility] SARS-CoV-2 COVID-19, mRNA, LNP-S, preservative free 09/04/2021 [...] TUBES OTHER SURGICAL HISTORY [age] PROCEDURE: AZ BRONCHOSCOPY W/TRANSBRONCHIAL LUNG BX 1 LOBE EYE SURGERY PROCEDURE: HISTORICAL EYE SURGERY Medical History Medical History Date Comments Essential hypertension 08/31/2019 DX:Essent ial hypertension Migraine with aura DX:Migraine w ith aura; COMMENT: Naprosyn 04-14-12: worsening- started amitriptyline 25 mg hs Saw neurologist and is on topamax- now 100 mg 08-08-15: ped neuro- verapamil 40 mg bid in addition to [id number] mg hs; fioricet PRN, riboflavin, magnesium 10-10-15: [...] 4:00 PM EDT Office Visit Nephrology - [place] [address] [place] [address] Christopher Pollard MD [address] [facility] [address] [place] [address] Health Maintenance Due Date Last [...] * Annual BMP Blood Test (01/22/2024) Pathologist [facility] Annual BMP Blood Test abstracted [facility] Provider MD HEALTH MAINTENANCE Final Result * Gonorrhea/Chlamydia Screening (11/13/2023) Pathologist [facility] Gonorrhea/Chla mydia Screening abstracted [facility] Provider MD HEALTH MAINTENANCE Final Result * Depression Screening (10/06/2023) Pathologist [facility] Depression Screening abstracted [facility] Provider MD HEALTH MAINTENANCE Final Result * Lipid panel (12/06/2022) [facility] LDL/HDL Ratio 2 0 - 4 Triglycerides 71 0 - 150 mg/dL Cholesterol 117 0 - 200 mg/dL HDL 48 >=40 mg/dL LDL Cholesterol 55 0 - 100 mg/dL Blood Venous blood specimen / Unknown [facility] Provider LAB BLOOD ORDERABLES Praveena l Result * Pap smear (09/05/2022) 09/05/2022 Narrative HISTORICAL TESTING LAB RESULTING AGENCY - 09/12/2022 7:30 AM EDT [id number] THINPREP PAP, IMAGED: NEGATIVE FOR SQUAMOUS INTRAEPITHELIAL [...]
--- OUTSIDE RECORDS SUMMARY | 2025-02-07 16:56 | XMS_ITS | Patient Health Record ---
Author Organization [facility] Address [address] [facility] [address] [place] [address] Support Name Relationship Address Phone Nena Zafar Guarantor Unknown [phone] Allergies Allergen (clinical drug ingredient) Drug/Non Drug [...] Status Risk Notes Problem Morbid obesity (disorder) (104169595) Morbid (severe) obesity due to excess calories (E66.01) Active confirmed Problem Generalized anxiety disorder (44661715) Generalized anxiety disorder (F41.1) Active confirmed Problem Migraine with aura (1280361) Migraine with aura, not intractable, without status migrainosus (G43.109) Active confirmed Problem Obstructive sleep apnea syndrome (disorder) (47532561) Obstructive sleep apnea (adult) (pediatric) (G47.33) Active confirmed Problem Essential hypertension (00018883) Essential (primary) hypertension (I10) Active confirmed Problem Mild intermittent asthma (277927503) Mild intermittent asthma, uncomplicated (J45.20) Active confirmed Problem Gastro-esophageal reflux disease without esophagitis (243994352) Gastro-esophageal reflux disease without esophagitis (K21.9) Active confirmed Problem Attention deficit hyperactivity disorder, predominantly inattentive type (disorder) (55278971) Attention and concentration deficit (R41.840) Active confirmed Plan Of Treatment No Information Insurance Providers Payer Name Payer Address Payer Phone Subscriber Number Group Number Insured Name Patient Relationship to Insured Coverage Start Date Coverage End Date [facility] [address] [place] [phone] [id number] Nena Ballard Self - patient is the insured Medical (General) History Medical History History ICD Code Generalized anxiety disorder/major depre ssive disorder, sees psychiatry ADD GERD Mild intermittent asthma Migraine headaches with aura Hypertension AIDAN cannot tolerate CPAP Surgical History Surgery Date(Month/Year) strabismus surgery
== END 2025-02-07 15:34 | disposition home or self-care (01) ==
LOC: HO.HSMS 14:28
PROVIDERS: Visit Provider Physician Assistant Medical
DX: R53.83 Other fatigue (principal); G47.9 Sleep disorder, unspecified; Z72.821 Inadequate sleep hygiene; I10 Essential (primary) hypertension; F41.9 Anxiety disorder, unspecified; R06.83 Snoring; E66.01 Morbid (severe) obesity due to excess calories; Z68.44 Body mass index [BMI] 60.0-69.9, adult
CPT/HCPCS: 99204

== ENCOUNTER → 2025-02-07 14:27 | Outpatient (BNVA) | payer MEDICARE, SELFPAY | PROVIDERS: Visit Provider Physician Assistant Medical | DX: R53.83 Other fatigue (principal); G47.9 Sleep disorder, unspecified; I10 Essential (primary) hypertension; F41.9 Anxiety disorder, unspecified; R06.83 Snoring; E66.01 Morbid (severe) obesity due to excess calories; Z68.44 Body mass index [BMI] 60.0-69.9, adult; Z72.821 Inadequate sleep hygiene; Z99.89 Dependence on other enabling machines and devices | CPT/HCPCS: 99202 ==

== ENCOUNTER 2025-02-15 09:56 | Outpatient (REF) | payer MEDICARE, SELFPAY ==
[2025-02-15 10:45] LABS: Iron 74 mcg/dL (30-160); Percent Iron Saturation 24 % (15-50); Total Iron Binding Capacity 312 mcg/dL (228-428); Unsaturated Iron Binding 238 ug/dL
[2025-02-15 11:47] LABS: Ferritin 43 ng/mL (10-122)
[2025-02-19 01:09] LABS: Methylmalonic Acid 243 nmol/L (55-335)
== END 2025-02-15 09:57 | disposition home or self-care (01) ==
LOC: HO.LAB 09:56
PROVIDERS: Visit Provider Physician Assistant Medical
DX: G47.9 Sleep disorder, unspecified (principal); R53.83 Other fatigue; E66.01 Morbid (severe) obesity due to excess calories; Z68.43 Body mass index [BMI] 50.0-59.9, adult; Z72.821 Inadequate sleep hygiene
CPT/HCPCS: 36415; 82728; 83090; 83540; 83921

== ENCOUNTER 2025-03-04 15:33 | Outpatient (AMB) | payer MEDICARE, MEDICAID, SELFPAY ==
--- NOTE | 2025-03-04 15:36 | A.OFFPC_ITS ---
Vital Signs 03/04/25 15:37 Height 5 ft 3 in Weight 372 lb 2 oz BMI 65.9 BP 130/60 Blood Pressure Location Lt brachial Position Sitting Pulse 94 Pulse Source Pulse Oximeter Temp 97.1 F Temp Source Temporal Artery Scan Pulse Oximetry (%) 98 Oxygen Delivery Method Room Air Intake Visit Reasons: f/u HTN Intake Note: Patient is here to follow up on HTN. Tattoo And Body Artist Required: No Cover Mat Machine Operator: Not Required per policy Accompanied by: Self / Same As Patient Allergies Penicillins Allergy (Intermediate, Verified 03/04/25 15:54) Hives Sulfa (Sulfonamide Antibiotics) Allergy (Intermediate, Verified 03/04/25 15:54) Hives doxycycline Allergy (Verified 03/04/25 15:54) Hives cephalexin [From Keflex] Adverse Reaction (Verified 03/04/25 15:54) Redness of Skin Medication List - Last Reconciled 03/04/25 by Iraida Woodruff PA-C albuterol sulfate 90 mcg/actuation 1 inh inhalation QID PRN cholecalciferol (vitamin D3) 1,250 mcg PO QWEEK clonidine 1 patch transdermal QWEEK dextroamphetamine-amphetamine 20 mg ER 1 cap PO QAM famotidine 20 mg PO DAILY gabapentin 300 mg PO BID levonorgestrel (Mirena) intrauterine lisinopril 5 mg PO DAILY magnesium gluconate 500 mg PO BID nystatin-triamcinolone 2 ea topical BID riboflavin (vitamin B2) 200 mg PO BID sertraline 50 mg PO DAILY Tobacco use date assessed: 03/04/25 Dental Screening Dental Screen Date: 01/21/25 HPI f/u HTN HPI Details 25-year-old female with past medical his tory of anxiety, depression, asthma, hypertension, PCOS, ADHD, GERD, obstructive sleep apnea last seen 12/2024 coming in for follow up. In review of the notes, patient was seen by [facility] Neurology 02/07/2025 ordered for sleep study and advised to follow up in 3 months. Her amlodipine was discontinued due to excessive drowsiness and was patient was started on lisinopril 5 mg. Presenting with follow-up for blood pressure management. She stopped using amlodipine due to side effects, including drowsiness and dizziness, and noticed improvement upon switching to lisinopril. was discussed as a potential concern because lisinopril is contraindicated during . Asthma management includes use of daily and rescue inhalers, with unspecified types. Numbness in the hands was reported, with a plan for nerve conduction studies. [facility] Medical History Asthma High blood pressure Surgical History S/P tonsillectomy History of eye surgery Family History Maternal Grandmother Breast cancer Social History Housing: Apartment Alcohol intake: current Alcohol intake frequency: holidays/special occasions only Patient Tobacco Use Status: Never used Tobacco e-Cigarette/Vaping Use: Never Used Second Hand Smoke Exposure: No service: No Current occupational status: employed Cognitive needs: No Hearing needs: No Vision needs: Yes (Glasses) Questionnaire Thrive Questionnaire Date Thrive assessed: 01/14/25 I am a: Patient What is your living situation today?: I have a steady place to live Within the past 12 months, did the food you bought not last and you didn't have the money to get more?: I choose not to answer this question Within the past 12 months, did you worry whether your food would run out before you got money to buy more?: I choose not to answer this question Do you have trouble paying for medicines?: No Do you have trouble getting transportation to medical appointments?: No Do you have trouble paying your heating and electricity bill?: I choose not to answer this question Do you have trouble taking care of your child, family member or friend?: No Do you have trouble with day-to-day activities such as bathing, preparing meals, shopping, managing finances, etc.?: No Are you currently unemployed and looking for a job?: No Are you interested in more education?: I choose not to answer this question Please select the resources that you would like help with: None Currently or been in a relationship where the following occur: No concerns reported THRIVE Score: 0 CANDE-7 AMB Questionnaire CANDE-7 Date CANDE - 7 assessed: 01/21/25 Source: Developed by Drs. Hilario Kinney, Faye Azar, Yoseph Thibodeaux and colleagues, with an educational natasha from [employer]. Review of Systems Const Denies body aches, Denies chills, Denies fever(s), Reports headache(s) (occasionally ) and Denies poor appetite Eyes Reports no additional complaints ENT Denies dizziness and Reports headache(s) (occasionally ) Card Denies chest pain, Denies lightheadedness and Denies dyspnea Resp Denies cough and Denies dyspnea GI Denies nausea and Denies vomiting Reports no additional complaints Musc Reports as per HPI and Denies abnormal gait Skin/Breast Reports system reviewed and no additional complaints, except as documented Neuro Denies abnormal gait, Denies dizziness and Reports headache(s) (occasionally ) Psych Reports no additional complaints Physical exam (Primary Care) Vital Signs: Last Vital Signs Temp 97.1 F 03/04/25 15:37 Pulse 94 03/04/25 15:37 BP 130/60 03/04/25 15:37 Pulse Ox 98 03/04/25 15:37 Oxygen Delivery Method Room Air 03/04/25 15:37 BMI result Body Mass Index 65.9 Tobacco/Smoking Status: Tobacco use Status Tobacco use date assessed 03/04/25 03/04/25 15:42 Patient Tobacco Use Status Never used Tobacco 03/04/25 15:42 e-Cigarette/Vaping Use Never Used 03/04/25 15:42 Thrive Assessment: Date of Thrive Assessment Date Thrive assessed 01/14/25 03/04/25 15:42 Currently or been in a relationship where the following occur: No concerns reported Const General: cooperative, healthy appearing, comfortable and no acute distress Orientation/consciousness: patient oriented x3 HENMT Head: Yes normocephalic Ears: hearing grossly normal bilaterally General nose exam: Normal external nose present Eyes General: appearance normal, both eyes and all related structures Conjunctivae: conjunctivae normal Neck Neck: Yes full ROM and Yes no lymphadenopathy Resp Effort & Inspection: normal respiratory effort Auscultation: clear to auscultation bilaterally, no crackles, no rales, no rhonchi and no wheezes Cardio Rate: regular rate Rhythm: regular rhythm Skin General skin exam: no rashes or lesions noted Neuro General: patient oriented x3 Gait exam (Neuro): Normal gait present Extrem General: Yes normal to inspection, Yes full ROM and No edema Psych Affect: normal affect Attitude: cooperative Insight: Good insight present (Psych) Judgement: Good judgement present (Psych) Coding Level of Care Code Est Pt Level 3 (15732) Diagnoses Morbid obesity with BMI of 60.0-69.9, adult E66.01; Z68.44 Primary hypertension I10 Hypertension type: primary hypertension Obstructive sleep apnea G47.33 Numbness and tingling in both hands R20.0; R20.2 Asthma J45.909 Migraine G43.909 Assessment & Plan Assessment & Plan (1) Morbid obesity with BMI of 60.0-69.9, adult: Code(s): E66.01 - Morbid (severe) obesity due to excess calories; Z68.44 - Body mass index [BMI] 60.0-69.9, adult Category: Medical Plan: Healthy diet and regular exercise is encouraged. (2) High blood pressure: Code(s): I10 - Essential (primary) hypertension Category: Medical Qualifiers: Hypertension type: primary hypertension Qualified Code(s): I10 - Essential (primary) hypertension Plan: Continue on current blood pressure medication. Avoid salt intake and encourage healthy diet and regular exercise. (3) Obstructive sleep apnea: Code(s): G47.33 - Obstructive sleep apnea (adult) (pediatric) Category: Medical Plan: Patient was evaluated by sleep Medicine determined to have obstructive sleep apnea and was given CPAP. She was told she would need to be on BiPAP and was awaiting settings on her machine when her insurance lapsed. She is currently working with Neurologist. (4) Numbness and tingling in both hands: Code(s): R20.0 - Anesthesia of skin; R20.2 - Paresthesia of skin Category: Medical Plan: Advised patient to use night splints for the next several months if symptoms do not improve plan EMG for bilateral upper extremities. (5) Asthma: Code(s): J45.909 - Unspecified asthma, uncomplicated Category: Medical Plan: Asthma currently controlled on present medications. Continue on maintenance inhaler daily and albuterol as needed. Avoid triggers such as allergies. Patient states she uses her albuterol inhaler less than once a week and does have a maintenance inhaler but is unsure of the name. Agrees to reach out to let us know the name of this inhaler (6) Migraine: Code(s): G43.909 - Migraine, unspecified, not intractable, without status migrainosus Category: Medical Plan: Currently working with Neurology for migraine and sleep apnea. Advised to keep a headache diary and bring to the next appointment. Plan Management of essential hypertension will continue with lisinopril. Given future considerations, alternative treatments may be required. Asthma management requires clarifying and adjusting inhaler use, and monitoring continues. Headache occurrences associated with orthostatic changes are being tracked through a headache diary. Numbness entails the implementation of night splints, with a nerve study pending further evaluation. This note was constructed using voice recognition software. While every effort has been made to ensure accuracy and leak gang supervisor, still areas may have been included sometimes these areas may affect the content or meeting of the given symptoms. Total time spent caring for the patient today was 20 minutes. This includes time spent before the visit reviewing the chart, time spent during the visit, and time spent after the visit and documentation. Patient was informed and verbally consented to the use of an ambient scribe for clinic note documentation during this visit. Orders: Orders ABHISHEK Reflex Titer and Pattern Today E66.01 - Morbid (severe) obesity due to excess calories, Z68.44 - Body mass index [BMI] 60.0-69.9, adult Comprehensive Met. Panel Today E66.01 - Morbid (severe) obesity due to excess calories, Z68.44 - Body mass index [BMI] 60.0-69.9, adult
--- OUTSIDE RECORDS SUMMARY | 2025-03-04 15:36 | XMS_ITS | Patient Health Record ---
Author Organization [employer] [facility] Address [address] [facility] [facility] [address] [place] [address] Support Name Relationship Address Phone Nena Zafar Guarantor Unknown [phone] Allergies Allergen (clinical drug ingredient) Drug/Non Drug [...] Status Risk Notes Problem Morbid obesity (disorder) (681423405) Morbid (severe) obesity due to excess calories (E66.01) Active confirmed Problem Generalized anxiety disorder (17525860) Generalized anxiety disorder (F41.1) Active confirmed Problem Migraine with aura (3441167) Migraine with aura, not intractable, without status migrainosus (G43.109) Active confirmed Problem Obstructive sleep apnea syndrome (disorder) (63427724) Obstructive sleep apnea (adult) (pediatric) (G47.33) Active confirmed Problem Essential hypertension (88528797) Essential (primary) hypertension (I10) Active confirmed Problem Mild intermittent asthma (629670121) Mild intermittent asthma, uncomplicated (J45.20) Active confirmed Problem Gastro-esophageal reflux disease without esophagitis (600601686) Gastro-esophageal reflux disease without esophagitis (K21.9) Active confirmed Problem Attention deficit hyperactivity disorder, predominantly inattentive type (disorder) (07344638) Attention and concentration deficit (R41.840) Active confirmed Plan Of Treatment No Information Insurance Providers Payer Name Payer Address Payer Phone Subscriber Number Group Number Insured Name Patient Relationship to Insured Coverage Start Date Coverage End Date [facility] [address] [place] [address] [id number] Nena Ballard Self - patient is the insured Medical (General) History Medical History History ICD Code Generalized anxiety disorder/major depre ssive disorder, sees psychiatry ADD GERD Mild intermittent asthma Migraine headaches with aura Hypertension AIDAN cannot tolerate CPAP Surgical History Surgery Date(Month/Year) strabismus surgery
--- OUTSIDE RECORDS SUMMARY | 2025-03-04 15:36 | XMS_ITS | Clinical Summary ---
Author Organization [address] Address [address] [place] [phone] Phone Care Team Providers Care Strategy Associate Name Role Phone Unavailable Primary Care Provider Unavailabl e Allergies Active Allergy Reactions Criticality Noted Date Comments Cephalexin 10/23/2020 Burning sensation all over body. Doxycycline Hyclate 10/23/2020 hives Penaten 02/20/2023 Penicillin G Hives High 02/17/2023 Pt stated had bad reaction. She had hives all over the body. Sulfa (Sulfonamide Antibiotics) 03/06/2021 Medications cloNIDine (ECRTQNJF-PIQ-2 ) 0.3 mg/[address] 1 Patch onto the skin once a week. 4 Active emollient comb no.2, bulk, ointment Apply 0.5 g topically 2 times daily. 5% gabapentin ointment Sig: Apply 0.5 g daily to affected area Patient phone number: [phone] (home) 3 Active cholecalciferol (VITAMIN D-3) 1,250 [...] processing disorder 08/27/2024 Overview (08/27/2024): according to [facility] hearing report dated 01-15-13 Report from [...] of periods. Morbid obesity with BMI of 6 0.0-69.9, adult ([facility] V24, [facility] V28) 08/27/2024 Chlamydia 11/14/2023 PCOS (polycystic ovarian syndrome) 05/30/2022 [...] average Menorrhagia 07/14/2012 Overview (08/27/2024): Follows with [facility], has tiffany iud Last Assessment & Plan: Call ped endo for follow up appt. Asthma 06/20/2006 Overview (08/27/2024): Dr. Cummins; armen macedo 04-14-12: no controllers; no recent F/U Dr. Cummins Asthma Control Test Total Score: 16 started flovent 220 2 p daily 04-30-13: Asthma Control Test Total Score: 19 Interpetation of Score: < or equal to 19 Intervention Recommended ACT -14 = 20 05-04-15: [facility] exacerbation as of 08-08- no prob since 03-27-16: [facility] 5 d pred 40mg As of 11-08- off singulair for a week- refilled today, flovent 110 2 p daily; ACT 19 11/09: no contoller- using alb 1-2 a day- ACT - ref Dr. Cummins- to restart flovent Last [...] eval confirms dx of ADHD- accommodations in [employer], [employer], [employer]- full inclusion 03-07-15: normal [...] (Infanrix) 6wks to less than 7yo ,07/17/2000,1999,09/04,1999 ECsO-YRE-SAZ (Pentacel) 2mo to less than 5yo 06/18/2000,1999,1999,06/01 H1N1 Inj Preservative Free 12/22/2009 HPV, Quadrivalent 04/30/2013,07/14/2012,04/14/20 12 Hepatitis B (Qdbmuir-I-Hxvnq , Recombivax HB-Adult) 19yo and older 07/12/2020,02/09/2020,01/05/2020 [...] 04/27/2003,06/12/2000 Meningococcal MCV4P 08/08/2015,04/14/2012 PPD Test 11/10/2019 [employer] SARS-CoV-2 COVID-19, mRNA, LNP-S, preservative free 09/04/2021 [...] verapamil 40 mg bid in addition to [id number] mg hs; fioricet PRN, riboflavin, magnesium 10-10-15: [...] 4:00 PM EDT Office Visit Nephrology - [address] [place] [address] Christopher Pollard MD [address] [place] [address] Health Maintenance Due Date Last Done Comments Pneumococcal Vaccine: Pediatrics (0 to 5 Years) and At-Risk Patients (6 to 64 Years) (1 of 1 - PPSV23) 10/26/2019 08/31/2019, 04/14/2001, 07/17/2000 HIV Screening 11/02/2022 Hepatitis C Screening 11/02/2022 Social Influencers of Health Screening 11/02/2022 COVID-19 Vaccine ( season) 2024 09/04/2021, 01/29/2021, 01/08/2021 Depression Screening 10/06/2024 10/06/2023 Hypertension/CHF/CAD Annual BMP Blood Test 01/21/2025 01/22/2024 Influenza Vaccine (Season Ended) 2025 10/06/2023, 09/04/2021, 08/26/2019, Additional history exists Cervical Cancer Screening: Pap Smear 09/05/2025 09/05/2022, 09/05/2022, 09/05/2022 Cholesterol Screening (Lipid Panel) 12/06/2027 12/06/2022 DTaP,Tdap,and Td Vaccines (8 - Td or Tdap) 04/27/2031 04/27/2021, 04/11/2011, 05/01/2004, Additional history exists HIB Vaccines Completed 06/18/2000, 05/25, 1999, Additional history exists MMR Vaccines Completed 04/27/2003, 06/12/2000 IPV Vaccines Completed 05/01/2004, 05/25, 06/12/2000, Additional history exists Varicella Vaccines Completed 12/22/2009, 06/12/2000 HPV Vaccines Completed 04/30/2013, 0811/2011, 04/14/2012 Meningococcal ACWY Vaccine Completed 08/08/2015, Hepatitis B Vaccines Completed 07/12/2020, 02/09/2020, 01/05/2020, Additional history exists Gonorrhea/Chlamydia Screening Discontinued 11/13/2023 Hepatitis A Vaccines Aged Out No long er eligible based on patient's age to complete this topic Meningococcal B Vaccine Aged Out No l onger eligible based on patient's age to complete [...] * Annual BMP Blood Test (01/22/2024) Pathologist [facility] Annual BMP Blood Test abstracted [facility] Provider HEALTH MAINTENANCE Final Result * Gonorrhea/Chlamydia Screening (11/13/2023) Pathologist [facility] Gonorrhea/Chla mydia Screening abstracted [facility] Provider HEALTH MAINTENANCE Final Result * Depression Screening (10/06/2023) Pathologist [facility] Depression Screening abstracted [facility] Provider HEALTH MAINTENANCE Final Result * Lipid panel (12/06/2022) [facility] [address] LDL/HDL Ratio 2 0 - 4 Triglycerides 71 0 - 150 mg/dL Cholesterol 117 0 - 200 mg/dL HDL 48 >=40 mg/dL LDL Cholesterol 55 0 - 100 mg/dL Blood Venous blood specimen / Unknown us Historical Provider LAB BLOOD ORDERABLES Praveena l Result * Pap smear (09/05/2022) 09/05/2022 Narrative HISTORICAL TESTING LAB RESULTING AGENCY - 09/12/2022 7:30 AM EDT [id number] THINPREP PAP, IMAGED: NEGATIVE FOR SQUAMOUS INTRAEPITHELIAL [...] Most Recently Relevant to Health Maintenance Insurance [place]ICA[place] - [place]
[2025-03-04 15:37] VITALS: BP 130/60; PULSE 94; TEMP 36.2; O2SAT 98; BMI 65.9
== END 2025-03-04 16:16 | disposition home or self-care (01) ==
LOC: HO.HMCH 15:33
PROVIDERS: PCP Internal Medicine
DX: E66.01 Morbid (severe) obesity due to excess calories (principal); Z68.44 Body mass index [BMI] 60.0-69.9, adult; I10 Essential (primary) hypertension; G47.33 Obstructive sleep apnea (adult) (pediatric); R20.0 Anesthesia of skin; R20.2 Paresthesia of skin; J45.909 Unspecified asthma, uncomplicated; G43.909 Migraine, unspecified, not intractable, without status migrainosus

== ENCOUNTER → 2025-03-04 15:33 | Outpatient (BNVA) | payer MEDICARE, SELFPAY | PROVIDERS: PCP Internal Medicine | DX: I10 Essential (primary) hypertension (principal); F41.9 Anxiety disorder, unspecified; F32.A Depression, unspecified; J45.909 Unspecified asthma, uncomplicated; E28.2 Polycystic ovarian syndrome; F90.9 Attention-deficit hyperactivity disorder, unspecified type; K21.9 Gastro-esophageal reflux disease without esophagitis; G47.33 Obstructive sleep apnea (adult) (pediatric); E66.01 Morbid (severe) obesity due to excess calories; R20.0 Anesthesia of skin; R20.2 Paresthesia of skin; G43.909 Migraine, unspecified, not intractable, without status migrainosus; Z68.44 Body mass index [BMI] 60.0-69.9, adult | CPT/HCPCS: 99212 ==

== ENCOUNTER → 2025-03-08 10:51 | Outpatient (BNVA) | payer MEDICARE, SELFPAY | PROVIDERS: PCP Internal Medicine; Visit Provider Physician Assistant Surgical ==

== ENCOUNTER 2025-03-17 09:31 | Outpatient (AMB) | payer MEDICARE, SELFPAY ==
--- OUTSIDE RECORDS SUMMARY | 2025-03-17 10:29 | XMS_ITS | Patient Health Record ---
Author Organization [employer] Address [address] [place] [address] Support Name Relationship Address Phone Nena Zafar Guarantor Unknown [phone] Allergies Allergen (clinical drug ingredient) Drug/Non Drug [...] Status Risk Notes Problem Morbid obesity (disorder) (005801311) Morbid (severe) obesity due to excess calories (E66.01) Active confirmed Problem Generalized anxiety disorder (15419774) Generalized anxiety disorder (F41.1) Active confirmed Problem Migraine with aura (2048466) Migraine with aura, not intractable, without status migrainosus (G43.109) Active confirmed Problem Obstructive sleep apnea syndrome (disorder) (50954602) Obstructive sleep apnea (adult) (pediatric) (G47.33) Active confirmed Problem Essential hypertension (74380977) Essential (primary) hypertension (I10) Active confirmed Problem Mild intermittent asthma (817202961) Mild intermittent asthma, uncomplicated (J45.20) Active confirmed Problem Gastro-esophageal reflux disease without esophagitis (275848462) Gastro-esophageal reflux disease without esophagitis (K21.9) Active confirmed Problem Attention deficit hyperactivity disorder, predominantly inattentive type (disorder) (17934758) Attention and concentration deficit (R41.840) Active confirmed Plan Of Treatment No Information Insurance Providers Payer Name Payer Address Payer Phone Subscriber Number Group Number Insured Name Patient Relationship to Insured Coverage Start Date Coverage End Date [facility] [address] [place] [address] [id number] Nena Ballard Self - patient is the insured Medical (General) History Medical History History ICD Code Generalized anxiety disorder/major depre ssive disorder, sees psychiatry ADD GERD Mild intermittent asthma Migraine headaches with aura Hypertension AIDAN cannot tolerate CPAP Surgical History Surgery Date(Month/Year) strabismus surgery
--- OUTSIDE RECORDS SUMMARY | 2025-03-17 10:30 | XMS_ITS | Clinical Summary ---
Author Organization [address] Address [address] [place] [phone] Phone Care Team Providers Care Taxicab Driver Name Role Phone Unavailable Primary Care Provider Unavailabl e Allergies Active Allergy Reactions Criticality Noted Date Comments Cephalexin 10/23/2020 Burning sensation all over body. Doxycycline Hyclate 10/23/2020 hives Penaten 02/20/2023 Penicillin G Hives High 02/17/2023 Pt stated had bad reaction. She had hives all over the body. Sulfa (Sulfonamide Antibiotics) 03/06/2021 Medications cloNIDine (RXNENRYM-OAH-1 ) 0.3 mg/[address] 1 Patch onto the skin once a week. 4 Active emollient comb no.2, bulk, ointment Apply 0.5 g topically 2 times daily. 5% gabapentin ointment Sig: Apply 0.5 g daily to affected area Patient phone number: [phone] (home) 3 Active cholecalciferol (VITAMIN D-3) 1,250 [...] processing disorder 08/27/2024 Overview (08/27/2024): according to [facility] hearing report dated 01-15-13 Report from [...] obesity with BMI of 6 0.0-69.9, adult ([facility] V24, [facility] V28) 08/27/2024 Chlamydia 11/14/2023 PCOS (polycystic ovarian [...] -14 = 20 05-04-15: [facility]ation as of 08-08- no prob since 03-27-16: [facility] 5 [facility] 40mg As of [...] eval confirms dx of ADHD- accommodations in [employer], [employer]- full inclusion 03-07-15: normal [...] (Infanrix) 6wks to less than 7yo ,07/17/2000,1999,09/04,1999 FCmP-KBY-HDY (Pentacel) 2mo to less than 5yo 06/18/2000,1999,1999,06/01 H1N1 Inj Preservative Free 12/22/2009 HPV, Quadrivalent 04/30/2013,07/14/2012,04/14/20 12 Hepatitis B (Gfcxvkt-U-Oqneo , Recombivax HB-Adult) 19yo and older 07/12/2020,02/09/2020,01/05/2020 [...] 04/27/2003,06/12/2000 Meningococcal MCV4P 08/08/2015,04/14/2012 PPD Test 11/10/2019 [employer] SARS-CoV-2 COVID-19, mRNA, LNP-S, preservative free 09/04/2021 [...] TUBES OTHER SURGICAL HISTORY age 1.5yr PROCEDURE: ME BRONCHOSCOPY W/TRANSBRONCHIAL LUNG BX 1 LOBE EYE SURGERY PROCEDURE: HISTORICAL EYE SURGERY Medical History Medical History Date Comments Essential hypertension 08/31/2019 DX:Essent ial hypertension Migraine with aura DX:Migraine w ith aura; COMMENT: Naprosyn 04-14-12: worsening- started amitriptyline 25 mg hs Saw neurologist and is on topamax- now 100 mg 08-08-15: ped neuro- verapamil 40 mg bid in addition to [id number] mg hs; fioricet PRN, riboflavin, magnesium 10-10-15: [...] Care Team (Late st Contact Info) Description 06/29/2025 3:15 PM EDT Office Visit Nephrology - [place] [address] [place] [address] Christopher Pollard MD [address] [place] [address] Health Maintenance Due Date Last [...] * Annual BMP Blood Test (01/22/2024) Pathologist [facility] Annual BMP Blood Test abstracted [facility] Provider HEALTH MAINTENANCE Final Result * Gonorrhea/Chlamydia Screening (11/13/2023) Pathologist [facility] Gonorrhea/Chla mydia Screening abstracted [facility] Provider HEALTH MAINTENANCE Final Result * Depression Screening (10/06/2023) Pathologist [facility] Depression Screening abstracted [facility] Provider HEALTH MAINTENANCE Final Result * Lipid panel (12/06/2022) [facility] LDL/HDL Ratio 2 0 - 4 Triglycerides 71 0 - 150 mg/dL Cholesterol 117 0 - 200 mg/dL HDL 48 >=40 mg/dL LDL Cholesterol 55 0 - 100 mg/dL Blood Venous blood specimen / Unknown us Historical Provider LAB BLOOD ORDERABLES Praveena l Result * Pap smear (09/05/2022) 09/05/2022 Narrative HISTORICAL TESTING LAB RESULTING AGENCY - 09/12/2022 7:30 AM EDT [id number] THINPREP PAP, IMAGED: NEGATIVE FOR SQUAMOUS INTRAEPITHELIAL [...]
--- NOTE | 2025-03-17 11:44 | MHC.OFFVISWM ---
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 *SEE COMMENTS* Allergies Penicillins Allergy (Intermediate, Verified 03/17/25 11:44) Hives Sulfa (Sulfonamide Antibiotics) Allergy (Intermediate, Verified 03/17/25 11:44) Hives doxycycline Allergy (Verified 03/17/25 11:44) Hives cephalexin [From Keflex] Adverse Reaction (Verified 03/17/25 11:44) Redness of Skin Medication List - Last Reconciled 03/17/25 by Cooper Rossi MD albuterol sulfate 90 mcg/actuation 1 inh inhalation QID PRN cholecalciferol (vitamin D3) 1,250 mcg PO QWEEK famotidine 20 mg PO DAILY levonorgestrel (Mirena) intrauterine lisinopril 5 mg PO DAILY sertraline 50 mg PO DAILY HPI HPI TV DIGITAL BUSINESS ANALYST MWL *SEE COMMENTS*: Details: Start time: 11.32pm, End time: 12.23pm ?I spent 46 minutes speaking with the patient on the phone plus an additional 5 minutes reviewing and updating records for a total of 51 minutes HPI Comments Details: Previous weight loss efforts: self diet and exercise Wakes up: 7.30am, Sleeps: 9pm Breakfast: x4/wk (eggs with toast) Lunch: 12pm (sandwich, deli meat) Dinner: 4.30pm (chicken, rice) Snacks: occasionally (2pm (crackers) Exercise: none Beverages: Coffee/tea: none, soda: none, juice: none, ETOH: none PFSH Medical History (Updated 03/17/25 @ 12:09 by Cooper Rossi MD) Morbid obesity Asthma High blood pressure Surgical History S/P tonsillectomy History of eye surgery Family History (Updated 03/08/25 @ 10:58 by RADHA Maciel) Maternal Grandmother Breast cancer Mother Diabetes Other HTN (hypertension) Social History Housing: Apartment Alcohol intake: current Alcohol intake frequency: holidays/special occasions only Patient Tobacco Use Status: Never used Tobacco e-Cigarette/Vaping Use: Never Used Second Hand Smoke Exposure: No service: No Current occupational status: employed Cognitive needs: No Hearing needs: No Vision needs: Yes (Glasses) Telehealth Telehealth Telehealth Platform: Telephone Location of provider rendering services: practice address Location of patient: address on file Patient Identification confirmed using: Name, : Yes Telehealth method: voice only Patient verbally consented to treatment: Yes Patient verbally consented to billing insurance company: Yes Patient informed of any privacy concerns related to visit: Yes Minutes spent on Phone/Video with Pt.: 51 Assessment & Plan Assessment & Plan (1) Morbid obesity: Code(s): E66.01 - Morbid (severe) obesity due to excess calories Category: Medical Plan: 1.? Plan for lap sleeve gastrectomy. If diaphragmatic or ventral hernias are present at time of surgery, these will be repaired laparoscopically as well. I emphasized the importance of close follow-up, adherence to instructions and good communication. The surgery does not replace the need to change your lifestlyle which is the cause of the obesity problem. The surgery provides the motivation to try again to change your lifestyle, it reduces the appetite and make the transition to a better lifestyle easier and doubles the amount of weight you would lose compared to doing the lifestyle change without the surgery. You will need to be on a liquid diet with protein shakes for 2 weeks before surgery to maximize weight loss and boost your nutritional status to recover better from surgery and also for the first two weeks after surgery to let the stomach heal before we introduce other foods. After the first 2 weeks we will introduce protein bars and soft foods like scrambled eggs, cottage cheese and yogurt and after the 6th week will introduce meat, fish and cooked vegetables in small amounts. Over time you should be able to eat everything in small amounts. Side effects like nausea, vomiting, heartburn or abdominal pain are not common in the practice unless you are not following in the practice. This operation requires lifetime commitment to following in our practice and communication with me. You will much less weight and experience side effects if you don?t communicate or not following in the practice. Complications are rare and in our practice is about 1/10 of the national average. However, you can develop bleeding that may require transfusion (hasn?t happened for year in the practice), you may from complications (we did not have any deaths in the practice) and infections. Infections are usually a result of breakdown in communication or not understanding or following directions correctly. They are difficult to treat, they can happen during the first 6 weeks, they may require to be in the hospital for weeks or even months, not being able to eat by mouth and you may have drains and surgeries to try and correct the issue. Other risks and complications include possible conversion to an open procedure, leaks, small bowel obstruction, blood clots, cardiac, or pulmonary complications, as alf complications such as ulcers, insufficient weight loss and vitamin deficiencies. 2. You will receive a link of our software laureano to generate an individualized nutritional and exercise plan specific for you. Please send me a screenshot of the plans you will generate Meal to include lean meat (beef, fish, pork, turkey, chicken), or egyptian yogurt, or egg whites, or beans with a salad with olive oil and fruits (berries, pears, apples, kiwi). Avoid salt, breads, potatoes, rice, pasta, desserts. ?3. If you choose shakes, each shake would be drunk slowly, like coffee in a period of 2 hours. ?4. If you choose bars, cut each bar in 4 pieces and eat each piece in 30min ?to make each bar last 2 hours. ?5. I emphasized the importance of measuring accurately the food portion and measure it when serving the food in plate ?6. The meal portions include a specific number of forks of meat and salad. You always eat the meat portion but you can replace up to half of salad/vegetables portion with rice, potatoes or pasta, or a fruit ?if you like. The less you do it the better weight loss will be. ?7. One full-size fork is what it can be scooped on the fork without falling aside and not what can be bit with the fork. Use regular forks like those you find in a typical restaurant. ?8.? Please buy the body composition scale we discussed and send me weight measurements as soon as possible and then once a week. Always include your diet and exercise plan. 9. The best choice would be to purchase a stationary bike, elliptical or treadmill at home that can track calories. Let me know if you do so I can give you an exercise plan. 9. The best exercise choice would be to use your treadmill at home that can track calories. You can create and exercise plan with the [employer] laureano. ?10.?It is important of avoiding and for at least 18 months postoperatively and has been discussed at the infosession. ?11. Goal is to lose at least 1.5-2lbs per week ?12. Goal to lose 10% of your weight before surgery, which is about 40lbs. Ultimate weight goal: 330lbs before surgery 13. Please follow the diet plan exactly without any change. If you don't like something about the plan or you feel hungry you need to communicate with me so I can help you revise the plan. You should not change the plan yourself. 14. To be scheduled for EGD due to the history of GERD. The possibility of biopsies was discussed. Patient needs to avoid use of NSAIDs and aspirin for 1 week prior to EGD. You must be on liquids only the day before your endoscopy. Risks of perforation and bleeding was discussed with the patient. This will be an outpatient procedure with IV sedation. 15. . Start the Zepbound when you get your body composition scale once a week. We discussed the potential side effects of Zepbound such as nausea, vomiting, abdominal pain, diarrhea and constipation and you will need to contact me if any of these symptoms occur or for any other new symptom you may experience Medications: New tirzepatide (weight loss) (Zepbound) for 4 weeks 2.5 mg (0.5 mL) subcut QWEEK 2 mL 0RF E28.2 - Polycystic ovarian syndrome, E66.01 - Morbid (severe) obesity due to excess calories, Z68.43 - Body mass index [BMI] 50.0-59.9, adult
[2025-03-17 11:59] VITALS: BMI 65.5
== END 2025-03-17 12:24 | disposition home or self-care (01) ==
LOC: HO.HBS 09:31
PROVIDERS: PCP Internal Medicine; Visit Provider Surgery
DX: E66.01 Morbid (severe) obesity due to excess calories (principal); Z68.44 Body mass index [BMI] 60.0-69.9, adult
CPT/HCPCS: 99204

== ENCOUNTER → 2025-03-17 09:31 | Outpatient (BNVA) | payer MEDICARE, SELFPAY | PROVIDERS: PCP Internal Medicine; Visit Provider Surgery | DX: Z13.89 Encounter for screening for other disorder (principal) ==

== ENCOUNTER → 2025-03-22 19:30 | Outpatient (BNV) | payer MEDICARE, SELFPAY | PROVIDERS: PCP Internal Medicine; Visit Provider Psychiatry & Neurology Neurology | DX: G47.33 Obstructive sleep apnea (adult) (pediatric) (principal) | CPT/HCPCS: 95810 ==

== ENCOUNTER → 2025-03-22 19:30 | Outpatient (REF) | payer MEDICARE, SELFPAY | LOC: HO.SL 19:30 | PROVIDERS: PCP Internal Medicine; Visit Provider Physician Assistant Medical | DX: G47.30 Sleep apnea, unspecified (principal); Z72.821 Inadequate sleep hygiene; R53.83 Other fatigue; G47.9 Sleep disorder, unspecified | CPT/HCPCS: 95810 ==

== ENCOUNTER → 2025-03-29 09:36 | Outpatient (REF) | payer MEDICARE, SELFPAY ==
--- NOTE | ~2025-03-29 | XR_ITS ---
CLINICAL HISTORY: E66.01 - Morbid (severe) obesity due to excess calories 2 view chest x-ray. Comparison: CR/SR - XR CHEST 2V - 04/05/22 17:13 EDT Findings: Normal lung volumes. Lungs are clear. No pneumothorax or pleural effusion. Heart size normal. No passive venous congestion. No midline shift or tracheal deviation. Osseous structures intact Impression: 1. No acute cardiopulmonary disease. This document has been electronically signed by: Ovidio Segal MD on 03/30/2025 08:27:51
[2025-03-29 09:59] LABS: MANUAL DIFF FLAG NO
--- NOTE | 2025-03-29 10:04 | ECG_ITS ---
Test Reason : OBESITY Blood Pressure : */* mmHG Vent. Rate : 93 BPM Atrial Rate : 93 BPM P-R Int : 150 ms QRS Dur : 92 ms QT Int : 348 ms P-R-T Axes : 46 39 24 degrees QTcB Int : 432 ms Normal sinus rhythm Normal ECG When compared with ECG of 18-Mar-2021 03:01, No significant change was found Referred By: Cooper Rossi Electronically Signed By: SANTOSH BRADY
[2025-03-29 10:37] LABS: Basophils Percent Auto 0.5 % (0-2); Eosinophils Absolute Auto 0.1 X10*3/uL (0.0-0.4); Eosinophils Percent Auto 1.6 % (0-4); Hematocrit 44.2 % (37.0-47.0); Imm Gran Abs Auto 0.03 X10*3/uL (0.00-0.03); Imm Gran Pct Auto 0.4 % (0.0-0.4); Lymphocytes Percent Auto 25.8 % (20-40); Mean Corpuscular HGB Conc 31.7 g/dl (31.0-35.0); Mean Corpuscular Hemoglobin 27.4 pg (27.0-33.0); Mean Corpuscular Volume 86.5 fL (80.0-98.0); Mean Platelet Volume 10.2 fL (9.4-12.3); Monocytes Absolute Auto 0.6 X10*3/uL (0.1-1.2); Monocytes Percent Auto 8.1 % (2-11); Neutrophils Absolute Auto 4.8 x10*3/uL (2.0-8.3); Neutrophils Percent Auto 63.6 % (45-73); Platelet Count 306 X10*3/uL (160-400); Red Blood Count 5.11 X10*6/uL (4.20-5.50); Red Cell Distribution Width 13.7 % (11.0-16.0); White Blood Count 7.6 X10*3/uL (4.8-10.8)
--- OUTSIDE RECORDS SUMMARY | 2025-03-29 10:38 | XMS_ITS | Patient Health Record ---
Author Organization [employer] [facility] Address [address] [place] [address] Support Name Relationship Address Phone Nena Zafar Guarantor Unknown [phone] Allergies Allergen (clinical drug ingredient) Drug/Non Drug [...] Status W/U Status Risk Notes Problem Morbid (severe) obesity due to excess calories (E66.01) Active confirmed Problem Generalized anxiety disorder (93147818) Generalized anxiety disorder (F41.1) Active confirmed Problem Migraine with aura (2293943) Migraine with aura, not intractable, without status migrainosus (G43.109) Active confirmed Problem Obstructive sleep apnea syndrome (disorder) (65726516) Obstructive sleep apnea (adult) (pediatric) (G47.33) Active confirmed Problem Essential hypertension (67906016) Essential (primary) hypertension (I10) Active confirmed Problem Mild intermittent asthma (715756912) Mild intermittent asthma, uncomplicated (J45.20) Active confirmed Problem Gastro-esophageal reflux disease without esophagitis (405505061) Gastro-esophageal reflux disease without esophagitis (K21.9) Active confirmed Problem Attention deficit hyperactivity disorder, predominantly inattentive type (disorder) (56074522) Attention and concentration deficit (R41.840) Active confirmed Plan Of Treatment No Information Insurance Providers Payer Name Payer Address Payer Phone Subscriber Number Group Number Insured Name Patient Relationship to Insured Coverage Start Date Coverage End Date [facility] [address] [place] [phone] [id number] Nena Ballard Self - patient is the insured Medical (General) History Medical History History ICD Code Generalized anxiety disorder/major depre ssive disorder, sees psychiatry ADD GERD Mild intermittent asthma Migraine headaches with aura Hypertension AIDAN cannot tolerate CPAP Surgical History Surgery Date(Month/Year) strabismus surgery
--- OUTSIDE RECORDS SUMMARY | 2025-03-29 10:38 | XMS_ITS | Clinical Summary ---
Author Organization [address] Address [address] [place] [phone] Phone Care Team Providers Care Neonatologist Name Role Phone Unavailable Primary Care Provider Unavailabl e Allergies Active Allergy Reactions Criticality Noted Date Comments Cephalexin 10/23/2020 Burning sensation all over body. Doxycycline Hyclate 10/23/2020 hives Penaten 02/20/2023 Penicillin G Hives High 02/17/2023 Pt stated had bad reaction. She had hives all over the body. Sulfa (Sulfonamide Antibiotics) 03/06/2021 Medications cloNIDine (HSTAARTJ-ZOS-2 ) 0.3 mg/[address] 1 Patch onto the skin once a week. 4 Active emollient comb no.2, bulk, ointment Apply 0.5 g topically 2 times daily. 5% gabapentin ointment Sig: Apply 0.5 g daily to affected area Patient phone number: [phone] (home) 3 Active cholecalciferol (VITAMIN D-3) 1,250 [...] processing disorder 08/27/2024 Overview (08/27/2024): according to [facility] hearing report dated 01-15-13 Report from 02-15-13- [...] obesity with BMI of 6 0.0-69.9, adult ([facility] V24, [facility] V28) 08/27/2024 Chlamydia 11/14/2023 PCOS (polycystic ovarian [...] Recommended ACT -14 = 20 05-04-15: [facility] - asthma exacerbation as of 08-08- no prob since 03-27-16: seen [facility]- 5 d pred 40mg As of 11-08- [...] eval confirms dx of ADHD- accommodations in [employer]- full inclusion 03-07-15: normal [...] (Infanrix) 6wks to less than 7yo ,07/17/2000,1999,09/04,1999 ERjU-UUI-ERA (Pentacel) 2mo to less than 5yo 06/18/2000,1999,1999,06/01 H1N1 Inj Preservative Free 12/22/2009 HPV, Quadrivalent 04/30/2013,07/14/2012,04/14/20 12 Hepatitis B (Tbwjilr-Y-Jbxwj , Recombivax HB-Adult) 19yo and older 07/12/2020,02/09/2020,01/05/2020 [...] 04/27/2003,06/12/2000 Meningococcal MCV4P 08/08/2015,04/14/2012 PPD Test 11/10/2019 [employer] SARS-CoV-2 COVID-19, mRNA, LNP-S, preservative free 09/04/2021 [...] TUBES OTHER SURGICAL HISTORY age 1.5yr PROCEDURE: NM BRONCHOSCOPY W/TRANSBRONCHIAL LUNG BX 1 LOBE EYE SURGERY PROCEDURE: HISTORICAL EYE SURGERY Medical History Medical History Date Comments Essential hypertension 08/31/2019 DX:Essent ial hypertension Migraine with aura DX:Migraine w ith aura; COMMENT: Naprosyn 04-14-12: worsening- started amitriptyline 25 mg hs Saw neurologist and is on topamax- now 100 mg 08-08-15: ped neuro- verapamil 40 mg bid in addition to [id number] mg hs; fioricet PRN, riboflavin, magnesium 10-10-15: [...] 3:15 PM EDT Office Visit Nephrology - [place] [address] [place] [address] Christopher Pollard MD [address] [place] [address] Health Maintenance Due Date Last [...] BMP Blood Test (01/22/2024) Pathologist [facility] Annual BMP Blood Test abstracted [facility] Provider HEALTH MAINTENANCE Final Result * Gonorrhea/Chlamydia Screening (11/13/2023) Pathologist [facility] Gonorrhea/Chla mydia Screening abstracted [facility] Provider HEALTH MAINTENANCE Final Result * Depression Screening (10/06/2023) Pathologist [facility] Depression Screening abstracted [facility] Provider HEALTH MAINTENANCE Final Result * Lipid panel (12/06/2022) [facility] LDL/HDL Ratio 2 0 - 4 Triglycerides 71 0 - 150 mg/dL Cholesterol 117 0 - 200 mg/dL HDL 48 >=40 mg/dL LDL Cholesterol 55 0 - 100 mg/dL Blood Venous blood specimen / Unknown us Historical Provider LAB BLOOD ORDERABLES Praveena l Result * Pap smear (09/05/2022) 09/05/2022 Narrative HISTORICAL TESTING LAB RESULTING AGENCY - 09/12/2022 7:30 AM EDT [id number] THINPREP PAP, IMAGED: NEGATIVE FOR SQUAMOUS INTRAEPITHELIAL [...]
[2025-03-29 10:47] LABS: Estimated Average Glucose 117 mg/dL; Hemoglobin A1C 141.5812 umol/L; Hemoglobin A1c % 5.7 % (<6.0); Total Hemoglobin (HGBA1C) 3681.7756 umol/L
[2025-03-29 11:23] LABS: Anion Gap 11 (12-20); Blood Urea Nitrogen 12 mg/dL (9-16); Carbon Dioxide 28 mmol/L (22-29); Chloride 104 mmol/L (96-108); Potassium 4.1 mmol/L (3.3-5.1); Sodium 139 mmol/L (135-145)
[2025-03-29 11:24] LABS: Alanine Aminotransferase 23 U/L (0-31); Alkaline Phosphatase 62 U/L (39-117); Aspartate Amino Transferase 26 U/L (5-31); Bilirubin Total 0.6 mg/dL (0.0-1.0); C Reactive Protein 1.71 mg/dL (< or = 0.50); Calcium 9.1 mg/dL (8.4-10.2); Cholesterol 123 mg/dL (<200); Estimated Glomerular Filt Rate > 60; Glucose Random 76 mg/dL (60-115); Iron 92 mcg/dL (30-160); Percent Iron Saturation 30 % (15-50); Total Iron Binding Capacity 307 mcg/dL (228-428); Total Protein 7.4 g/dL (6.5-8.0); Triglycerides 52 mg/dL (<150); Unsaturated Iron Binding 215 ug/dL
[2025-03-29 11:45] LABS: Folate 8.7 ng/mL (> or = 4.0); Vitamin B12 574 pg/mL (200-900)
[2025-03-29 12:07] LABS: HDL Cholesterol 42 mg/dL (>40); LDL Cholesterol Calculated 71 mg/dL (<100)
[2025-03-29 14:06] LABS: Alanine Aminotransferase 22 U/L (0-31); Albumin Level 3.9 g/dL (3.5-5.0); Anion Gap 12 (12-20); Aspartate Amino Transferase 25 U/L (5-31); Bilirubin Total 0.6 mg/dL (0.0-1.0); Blood Urea Nitrogen 13 mg/dL (9-16); Carbon Dioxide 27 mmol/L (22-29); Chloride 104 mmol/L (96-108); Estimated Glomerular Filt Rate > 60; Glucose Random 76 mg/dL (60-115); Potassium 4.1 mmol/L (3.3-5.1); Sodium 139 mmol/L (135-145); Total Protein 7.3 g/dL (6.5-8.0)
[2025-03-29 14:35] LABS: Ferritin 45 ng/mL (10-122); Insulin 20 uU/mL (2-29); TSH reflex Free T4 1.45 uIU/mL (0.32-4.0); Vitamin D 25-OH Total 29.3 ng/mL (>30)
[2025-03-29 18:21] LABS: Alkaline Phosphatase 61 U/L (39-117)
[2025-03-30 11:58] LABS: Anti Nuclear Antibody Screen NEGATIVE (NEGATIVE)
== END ==
LOC: HO.CARD 09:36
PROVIDERS: Visit Provider Surgery
DX: Z13.1 Encounter for screening for diabetes mellitus (principal); E66.01 Morbid (severe) obesity due to excess calories; Z68.44 Body mass index [BMI] 60.0-69.9, adult; K21.9 Gastro-esophageal reflux disease without esophagitis
CPT/HCPCS: 36415; 71046; 80053; 80061; 82306; 82607; 82728; 82746; 83036; 83525; 83540; 84425; 84443; 84590; 84630; 85025; 86038; 86140; 93005

== ENCOUNTER → 2025-03-29 10:04 | Outpatient (BNV) | payer MEDICARE, SELFPAY | PROVIDERS: Visit Provider Internal Medicine | DX: E66.01 Morbid (severe) obesity due to excess calories (principal); E66.813 Obesity, class 3; Z68.44 Body mass index [BMI] 60.0-69.9, adult | CPT/HCPCS: 93010 ==

== ENCOUNTER → 2025-03-29 10:13 | Outpatient (BNV) | payer MEDICARE, SELFPAY | PROVIDERS: Visit Provider Radiology Diagnostic Radiology | DX: E66.01 Morbid (severe) obesity due to excess calories (principal); Z01.811 Encounter for preprocedural respiratory examination | CPT/HCPCS: 71046 ==

== ENCOUNTER 2025-03-30 13:57 | Outpatient (AMB) | payer MEDICARE, SELFPAY ==
--- NOTE | 2025-03-30 13:59 | MHC.OFFVIS ---
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 Accompanied by: Self / Same As Patient Allergies Penicillins Allergy (Intermediate, Verified 03/30/25 14:02) Hives Sulfa (Sulfonamide Antibiotics) Allergy (Intermediate, Verified 03/30/25 14:02) Hives doxycycline Allergy (Verified 03/30/25 14:02) Hives cephalexin [From Keflex] Adverse Reaction (Verified 03/30/25 14:02) Redness of Skin Medication List - Last Reconciled 03/30/25 by Michaelle Mitchell CNM albuterol sulfate 90 mcg/actuation 1 inh inhalation QID PRN cholecalciferol (vitamin D3) 1,250 mcg PO QWEEK famotidine 20 mg PO DAILY levonorgestrel (Mirena) intrauterine lisinopril 5 mg PO DAILY sertraline 50 mg PO DAILY tirzepatide (weight loss) (Zepbound) 2.5 mg (0.5 mL) subcut QWEEK Is last menstrual period known: No Post menopausal: No Patient : No HPI HPI SENIOR CLINICIAN annual exam/pcos: Details: 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 she used to go her all her healthcare [facility] but they stopped taking her insurance. She was diagnosed with PCOS years ago. She said she had a Tiffany placed 1st have with her periods and then she had it switched out a couple of years ago to a Mirena. She does not get a period at all on the Mirena but she used to get more regular periods on the Tiffany. She has always been overweight but she did gain a lot more weight during COVID. [place] She also helps take care of her mom who does have other care provider's but who has lupus and was in a fire so she does have lots health needs. She is sexually active she says it is a good relationship but she does not have sex all that often can sometimes it is uncomfortable more at her vagina from itching. She does it mid during the visit the it is difficult keeping herself clean and dry and all her skin folds and that is challenging she works hard to keep things cleaned so it does not smell. She has started at the weight management program and it is challenging and she eats for comfort and she says people do not understand that. She is really working hard on making changes and trying to incorporate recommendations she has been given. She had eubanks and eggs today and she might have chicken and broccoli for dinner later. At the end of the visit she found in her phone that the Mirena was placed 07/31/2022 and she was told it could stay in for to 8 years. [facility] Medical History Morbid obesity Asthma High blood pressure Surgical History S/P tonsillectomy History of eye surgery Family History Maternal Grandmother Breast cancer Mother Diabetes Other HTN (hypertension) Social History Housing: Apartment Alcohol intake: current Alcohol intake frequency: holidays/special occasions only Patient Tobacco Use Status: Never used Tobacco e-Cigarette/Vaping Use: Never Used Second Hand Smoke Exposure: No service: No Current occupational status: employed Cognitive needs: No Hearing needs: No Vision needs: Yes (Glasses) Female Reproductive History Menstrual Age of Menarche: 11 control method: progestin IUCD (Mirena) Total pregnancies: 0 Date of last pap smear: 09/05/22 (neg at [facility]) History of abnormal pap smear: No History of STI: No Physical Exam Vital Signs: Last Vital Signs BP 136/62 03/30/25 14:04 BMI result Body Mass Index 65.0 Const Other: Morbidly obese. increased facial hair noted. Nutritional Appearance: obese (Darkening of all skin folds with evidence of past folliculitis outbreaks.) morbidly obese Chest Other: Darkening of all skin folds with evidence of folliculitis in past no masses or dimpling of breasts noted patient does have piercings Other: Exam difficult secondary to adipose there is some redness at labia and slightly watery yellow discharge vagina is pink and moist cervix nulliparous with Mirena string visible we will await test results to see what there is to treat testing done today for gonorrhea chlamydia trichomoniasis as well as bacterial vaginosis and yeast and Pap smear was also done. Results Reviewed Results Reviewed: I reviewed also the fasting labs that she had done with her care provider. Assessment & Plan Assessment & Plan (1) Screening for cervical cancer: Code(s): Z12.4 - Encounter for screening for malignant neoplasm of cervix Category: Medical (2) High blood pressure: Code(s): I10 - Essential (primary) hypertension Category: Medical Qualifiers: Hypertension type: primary hypertension Qualified Code(s): I10 - Essential (primary) hypertension (3) PCOS (polycystic ovarian syndrome): Code(s): E28.2 - Polycystic ovarian syndrome Category: Medical (4) Morbid obesity with BMI of 60.0-69.9, adult: Code(s): E66.01 - Morbid (severe) obesity due to excess calories; Z68.44 - Body mass index [BMI] 60.0-69.9, adult Category: Medical (5) Depression: Code(s): F32.A - Depression, unspecified Category: Medical (6) Well woman exam with routine gynecological exam: Code(s): Z01.419 - Encounter for gynecological examination (general) (routine) without abnormal findings Category: Medical (7) Presence of 52 mg levonorgestrel-releasing intrauterine device (IUD): Comment: (Mirena replaced Tiffany on 07/31/2022 at [facility]) patient aware it could be used for 5-8 years. Currently amenorrheic with it. Code(s): Z97.5 - Presence of (intrauterine) contraceptive device Category: Social Hx Plan -----Discussed in this visit the following: healthy balanced diet, regular and consistent exercise, getting recommended health screens, doing the best she can for her particular health concerns, kegel exercises, pap smear screening and followup recommendations, mammography screening and SBE, normal changes in cycles in her life stage--- Reviewed use of the Mirena can be used for between 5 to years. Reviewed her previous diagnosis of PCOS and reviewed in fact that all things were tied to her obesity most of our visit was spent discussing the challenges that she experiences with her size and all of the factors including skin folds and vaginal health and discomfort in every way. Discussed how she is doing with trying to eat healthier and the challenges she has experience in in not quite fully understanding would different doctors have told her. She is still getting used to the instructions and trying to follow them about what she needs to eat and the limitations and she did not quite understand the instructions about eating a certain number of for full so food. Discussed the challenges of avoiding foods that are less healthy including simple carbs Also discussed the emotional challenges of anticipating weight loss and even the challenges of anticipating help people might treat her differently. She is still in the process of finding a therapist and I encouraged her to try to find somebody she feels comfortable talking to, who can help her as she does struggle to make changes and experiences the changes over time. She is also waiting on the results of the sleep study she was diagnosed with sleep apnea in the past.. She does find herself tired all the time she works in a job where she is [place]. She declined blood work for STIs We will await the results of testing done today for gonorrhea chlamydia trichomoniasis bacterial vaginosis and yeast to see what if anything there is to treat. There was a thin watery yellow discharge but it would be impossible to say if it might be trich BV or yeast. RTC 1 yr. . Orders: Orders Bacterial Vaginosis Panel Today Z12.4 - Encounter for screening for malignant neoplasm of cervix CT NG by PCR Today Z12.4 - Encounter for screening for malignant neoplasm of cervix Pap Smear Today Z12.4 - Encounter for screening for malignant neoplasm of cervix Coding Level of Care Code New Pt Prev Care 18-39yr([id number] Diagnoses Screening for cervical cancer Z12.4 Primary hypertension I10 Hypertension type: primary hypertension PCOS (polycystic ovarian syndrome) E28.2 Morbid obesity with BMI of 60.0-69.9, adult E66.01; Z68.44 Depression F32.A Well woman exam with routine gynecological exam Z01.419 Presence of 52 mg levonorgestrel-releasing intrauterine device (IUD) Z97.5
[2025-03-30 14:04] VITALS: BP 136/62; BMI 65.0
--- OUTSIDE RECORDS SUMMARY | 2025-03-30 15:14 | XMS_ITS | Clinical Summary ---
Author Organization [address] Address [address] [place] [phone] Phone Care Team Providers Care Sewing Supervisor Name Role Phone Unavailable Primary Care Provider Unavailabl e Allergies Active Allergy Reactions Criticality Noted Date Comments Cephalexin 10/23/2020 Burning sensation all over body. Doxycycline Hyclate 10/23/2020 hives Penaten 02/20/2023 Penicillin G Hives High 02/17/2023 Pt stated had bad reaction. She had hives all over the body. Sulfa (Sulfonamide Antibiotics) 03/06/2021 Medications cloNIDine (GVROVOEQ-SHU-7 ) 0.3 mg/[address] 1 Patch onto the skin once a week. 4 Active emollient comb no.2, bulk, ointment Apply 0.5 g topically 2 times daily. 5% gabapentin ointment Sig: Apply 0.5 g daily to affected area Patient phone number: [phone] (home) 3 Active cholecalciferol (VITAMIN D-3) 1,250 [...] processing disorder 08/27/2024 Overview (08/27/2024): according to [employer] [facility] hearing report dated 01-15-13 Report from 02-15-13- [...] obesity with BMI of 6 0.0-69.9, adult ([facility] V24, [facility] V28) 08/27/2024 Chlamydia 11/14/2023 PCOS (polycystic ovarian [...] Recommended ACT -14 = 20 [facility]-04-[facility]- no prob since 03-27-16: [facility] As of [...] eval confirms dx of ADHD- accommodations in [employer], [employer], [employer] technology- full inclusion 03-07-15: normal [...] (Infanrix) 6wks to less than 7yo ,07/17/2000,1999,09/04,1999 IHmQ-MKZ-UPR (Pentacel) 2mo to less than 5yo 06/18/2000,1999,1999,06/01 H1N1 Inj Preservative Free 12/22/2009 HPV, Quadrivalent 04/30/2013,07/14/2012,04/14/20 12 Hepatitis B (Hucesdb-N-Fzcyd , Recombivax HB-Adult) 19yo and older 07/12/2020,02/09/2020,01/05/2020 [...] 04/27/2003,06/12/2000 Meningococcal MCV4P 08/08/2015,04/14/2012 PPD Test 11/10/2019 [employer] SARS-CoV-2 COVID-19, mRNA, LNP-S, preservative free 09/04/2021 [...] TUBES OTHER SURGICAL HISTORY age 1.5yr PROCEDURE: MD BRONCHOSCOPY W/TRANSBRONCHIAL LUNG BX 1 LOBE EYE SURGERY PROCEDURE: HISTORICAL EYE SURGERY Medical History Medical History Date Comments Essential hypertension 08/31/2019 DX:Essent ial hypertension Migraine with aura DX:Migraine w ith aura; COMMENT: Naprosyn 04-14-12: worsening- started amitriptyline 25 mg hs Saw neurologist and is on topamax- now 100 mg 08-08-15: ped neuro- verapamil 40 mg bid in addition to mg hs; fioricet PRN, riboflavin, magnesium 10-10-15: [...] Relation Name Status Comments Father Alive 1967 jennfier Maternal Grandfather Maternal Grandmother Mother Alive 1966 [...] 3:15 PM EDT Office Visit Nephrology - [place] [address] [place] [address] Christopher Pollard MD [address] [place] [address] Health Maintenance Due Date Last [...] * Annual BMP Blood Test (01/22/2024) Pathologist [facility] Annual BMP Blood Test abstracted [facility] Provider HEALTH MAINTENANCE Final Result * Gonorrhea/Chlamydia Screening (11/13/2023) Pathologist [facility] Gonorrhea/Chla mydia Screening abstracted [facility] Provider HEALTH MAINTENANCE Final Result * Depression Screening (10/06/2023) Pathologist [facility] Depression Screening abstracted [facility] Provider HEALTH MAINTENANCE Final Result * Lipid panel (12/06/2022) [facility] LDL/HDL Ratio 2 0 - 4 Triglycerides 71 0 - 150 mg/dL Cholesterol 117 0 - 200 mg/dL HDL 48 >=40 mg/dL LDL Cholesterol 55 0 - 100 mg/dL Blood Venous blood specimen / Unknown us Historical Provider LAB BLOOD ORDERABLES Praveena l Result * Pap smear (09/05/2022) 09/05/2022 Narrative HISTORICAL TESTING LAB RESULTING AGENCY - 09/12/2022 7:30 AM EDT [id number] THINPREP PAP, IMAGED: NEGATIVE FOR SQUAMOUS INTRAEPITHELIAL [...]
--- OUTSIDE RECORDS SUMMARY | 2025-03-30 15:14 | XMS_ITS | Patient Health Record ---
Author Organization [employer] [facility] Address [address] [place] [address] Support Name Relationship Address Phone Nena Zafar Guarantor Unknown [phone] Allergies Allergen (clinical drug ingredient) Drug/Non Drug [...] Status Risk Notes Problem Morbid obesity (disorder) (883475754) Morbid (severe) obesity due to excess calories (E66.01) Active confirmed Problem Generalized anxiety disorder (88806469) Generalized anxiety disorder (F41.1) Active confirmed Problem Migraine with aura (4445280) Migraine with aura, not intractable, without status migrainosus (G43.109) Active confirmed Problem Obstructive sleep apnea syndrome (disorder) (36744193) Obstructive sleep apnea (adult) (pediatric) (G47.33) Active confirmed Problem Essential hypertension (88499922) Essential (primary) hypertension (I10) Active confirmed Problem Mild intermittent asthma (277581067) Mild intermittent asthma, uncomplicated (J45.20) Active confirmed Problem Gastro-esophageal reflux disease without esophagitis (955758803) Gastro-esophageal reflux disease without esophagitis (K21.9) Active confirmed Problem Attention deficit hyperactivity disorder, predominantly inattentive type (disorder) (59896131) Attention and concentration deficit (R41.840) Active confirmed Plan Of Treatment No Information Insurance Providers Payer Name Payer Address Payer Phone Subscriber Number Group Number Insured Name Patient Relationship to Insured Coverage Start Date Coverage End Date [facility] [address] [place] [address] [id number] Nena Ballard Self - patient is the insured Medical (General) History Medical History History ICD Code Generalized anxiety disorder/major depre ssive disorder, sees psychiatry ADD GERD Mild intermittent asthma Migraine headaches with aura Hypertension AIDAN cannot tolerate CPAP Surgical History Surgery Date(Month/Year) strabismus surgery
== END 2025-03-30 16:02 | disposition home or self-care (01) ==
LOC: HO.HWSM 13:57
PROVIDERS: Visit Provider Advanced Practice Midwife
DX: Z01.419 Encounter for gynecological examination (general) (routine) without abnormal findings (principal); I10 Essential (primary) hypertension; E28.2 Polycystic ovarian syndrome; E66.01 Morbid (severe) obesity due to excess calories; Z68.44 Body mass index [BMI] 60.0-69.9, adult; F32.A Depression, unspecified; Z97.5 Presence of (intrauterine) contraceptive device
CPT/HCPCS: 99385; 99459

== ENCOUNTER 2025-03-30 13:57 | Outpatient (REF) | payer MEDICARE, SELFPAY ==
--- OUTSIDE RECORDS SUMMARY | 2025-03-30 15:59 | XMS_ITS | Clinical Summary ---
Author Organization [address] Address [address] [place] [phone] Phone Care Team Providers Care Cross Enterprise Integrator Name Role Phone Unavailable Primary Care Provider Unavailabl e Allergies Active Allergy Reactions Criticality Noted Date Comments Cephalexin 10/23/2020 Burning sensation all over body. Doxycycline Hyclate 10/23/2020 hives Penaten 02/20/2023 Penicillin G Hives High 02/17/2023 Pt stated had bad reaction. She had hives all over the body. Sulfa (Sulfonamide Antibiotics) 03/06/2021 Medications cloNIDine (LCLHREOG-LBA-8 ) 0.3 mg/[address] 1 Patch onto the skin once a week. 4 Active emollient comb no.2, bulk, ointment Apply 0.5 g topically 2 times daily. 5% gabapentin ointment Sig: Apply 0.5 g daily to affected area Patient phone number: [phone] (home) 3 Active cholecalciferol (VITAMIN D-3) 1,250 [...] processing disorder 08/27/2024 Overview (08/27/2024): according to [facility] hearing report dated 01-15-13 Report from [...] obesity with BMI of 6 0.0-69.9, adult ([facility] V24, [facility] V28) 08/27/2024 Chlamydia 11/14/2023 PCOS (polycystic ovarian [...] Recommended ACT -14 = 20 05-04-15: [facility]-08- no prob since 03-27-16: [facility] As of [...] eval confirms dx of ADHD- accommodations in [employer], [email or web address], [employer] and technology- full inclusion 03-07-15: normal [...] (Infanrix) 6wks to less than 7yo ,07/17/2000,1999,09/04,1999 JArH-DLN-CJZ (Pentacel) 2mo to less than 5yo 06/18/2000,1999,1999,06/01 H1N1 Inj Preservative Free 12/22/2009 HPV, Quadrivalent 04/30/2013,07/14/2012,04/14/20 12 Hepatitis B (Jostmfx-T-Mgaln , Recombivax HB-Adult) 19yo and older 07/12/2020,02/09/2020,01/05/2020 [...] 04/27/2003,06/12/2000 Meningococcal MCV4P 08/08/2015,04/14/2012 PPD Test 11/10/2019 [employer] SARS-CoV-2 COVID-19, mRNA, LNP-S, preservative free 09/04/2021 [...] TUBES OTHER SURGICAL HISTORY age 1.5yr PROCEDURE: [place] BRONCHOSCOPY W/TRANSBRONCHIAL LUNG BX 1 LOBE EYE SURGERY PROCEDURE: HISTORICAL EYE SURGERY Medical History Medical History Date Comments Essential hypertension 08/31/2019 DX:Essent ial hypertension Migraine with aura DX:Migraine w ith aura; COMMENT: Naprosyn 04-14-12: worsening- started amitriptyline 25 mg hs Saw neurologist and is on topamax- now 100 mg 08-08-15: ped neuro- verapamil 40 mg bid in addition to [id number] mg hs; fioricet PRN, riboflavin, magnesium 10-10-15: [...] 3:15 PM EDT Office Visit Nephrology - [place] [address] [place] [address] Christopher Pollard MD [address] [place] [address] Health Maintenance Due Date Last [...] BMP Blood Test (01/22/2024) Pathologist [facility] Annual BMP Blood Test abstracted [facility] Provider HEALTH MAINTENANCE Final Result * Gonorrhea/Chlamydia Screening (11/13/2023) Pathologist [facility] Gonorrhea/Chla mydia Screening abstracted [facility] Provider HEALTH MAINTENANCE Final Result * Depression Screening (10/06/2023) Pathologist [facility] Depression Screening abstracted [facility] Provider HEALTH MAINTENANCE Final Result * Lipid panel (12/06/2022) [facility] LDL/HDL Ratio 2 0 - 4 Triglycerides 71 0 - 150 mg/dL Cholesterol 117 0 - 200 mg/dL HDL 48 >=40 mg/dL LDL Cholesterol 55 0 - 100 mg/dL Blood Venous blood specimen / Unknown us Historical Provider LAB BLOOD ORDERABLES Praveena l Result * Pap smear (09/05/2022) 09/05/2022 Narrative HISTORICAL TESTING LAB RESULTING AGENCY - 09/12/2022 7:30 AM EDT [id number] THINPREP PAP, IMAGED: NEGATIVE FOR SQUAMOUS INTRAEPITHELIAL [...]
[2025-03-30 18:50] LABS: Bacterial Vaginosis PCR POSITIVE (Negative); Candida Group PCR NOT DETECTED (Not Detect); Candida glab krusei PCR NOT DETECTED (Not Detect); Trichomonas vaginalis PCR NOT DETECTED (Not Detect)
[2025-03-30 20:31] LABS: CT PCR NOT DETECTED (Not Detect.); NG PCR NOT DETECTED (Not Detect.)
[2025-04-06 10:29] LABS: HPV Genotype 16 Negative (Negative); HPV Genotype 18 Negative (Negative)
[2025-04-13 13:47] LABS: HPV High Risk Positive (Negative)
== END 2025-03-30 13:58 | disposition home or self-care (01) ==
LOC: HO.LNP 13:57
PROVIDERS: Visit Provider Advanced Practice Midwife
DX: Z01.419 Encounter for gynecological examination (general) (routine) without abnormal findings (principal); Z20.2 Contact with and (suspected) exposure to infections with a predominantly sexual mode of transmission
CPT/HCPCS: 81515; 87491; 87591; 87626; 88175; 99385; 99459

== ENCOUNTER 2025-04-12 13:12 | Outpatient (AMB) | payer OTHER, SELFPAY ==
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
--- OUTSIDE RECORDS SUMMARY | 2025-04-12 14:14 | XMS_ITS | Clinical Summary ---
Author Organization [address] Address [address] [place] [phone] Phone Care Team Providers Care Flake Miller Wheat And Oats Name Role Phone Unavailable Primary Care Provider Unavailabl e Allergies Active Allergy Reactions Criticality Noted Date Comments Cephalexin 10/23/2020 Burning sensation all over body. Doxycycline Hyclate 10/23/2020 hives Penaten 02/20/2023 Penicillin G Hives High 02/17/2023 Pt stated had bad reaction. She had hives all over the body. Sulfa (Sulfonamide Antibiotics) 03/06/2021 Medications cloNIDine (JLTTJNQH-CSB-9 ) 0.3 mg/[address] 1 Patch onto the skin once a week. 4 Active emollient comb no.2, bulk, ointment Apply 0.5 g topically 2 times daily. 5% gabapentin ointment Sig: Apply 0.5 g daily to affected area Patient phone number: [phone] (home) 3 Active cholecalciferol (VITAMIN D-3) 1,250 [...] processing disorder 08/27/2024 Overview (08/27/2024): according to [facility] hearing report dated 01-15-13 Report from [...] obesity with BMI of 6 0.0-69.9, adult ([facility] V24, [facility] V28) 08/27/2024 Chlamydia 11/14/2023 PCOS (polycystic ovarian [...] Recommended ACT -14 = 20 05-04-15: [facility]-08- no prob since 03-27-16: [facility] 40[facility] As of [...] eval confirms dx of ADHD- accommodations in [employer], [employer], [employer] and technology- full inclusion 03-07-15: normal [...] (Infanrix) 6wks to less than 7yo ,07/17/2000,1999,09/04,1999 NYwY-WTM-JIZ (Pentacel) 2mo to less than 5yo 06/18/2000,1999,1999,06/01 H1N1 Inj Preservative Free 12/22/2009 HPV, Quadrivalent 04/30/2013,07/14/2012,04/14/20 12 Hepatitis B (Oaipsny-O-Qayey , Recombivax HB-Adult) 19yo and older 07/12/2020,02/09/2020,01/05/2020 [...] 04/27/2003,06/12/2000 Meningococcal MCV4P 08/08/2015,04/14/2012 PPD Test 11/10/2019 [employer] SARS-CoV-2 COVID-19, mRNA, LNP-S, preservative free 09/04/2021 [...] TUBES OTHER SURGICAL HISTORY age 1.5yr PROCEDURE: [place] BRONCHOSCOPY W/TRANSBRONCHIAL LUNG BX 1 LOBE EYE SURGERY PROCEDURE: HISTORICAL EYE SURGERY Medical History Medical History Date Comments Essential hypertension 08/31/2019 DX:Essent ial hypertension Migraine with aura DX:Migraine w ith aura; COMMENT: Naprosyn 04-14-12: worsening- started amitriptyline 25 mg hs Saw neurologist and is on topamax- now 100 mg 08-08-15: ped neuro- verapamil 40 mg bid in addition to [id number] mg hs; fioricet PRN, riboflavin, magnesium 10-10-15: [...] 3:15 PM EDT Office Visit Nephrology - [place] [address] [place] [address] Christopher Pollard MD [address] [place] [address] Health Maintenance Due Date Last [...] * Annual BMP Blood Test (01/22/2024) Pathologist [facility] Annual BMP Blood Test abstracted [facility] Provider HEALTH MAINTENANCE Final Result * Gonorrhea/Chlamydia Screening (11/13/2023) Pathologist [facility] Gonorrhea/Chla mydia Screening abstracted [facility] Provider HEALTH MAINTENANCE Final Result * Depression Screening (10/06/2023) Pathologist [facility] Depression Screening abstracted [facility] Provider HEALTH MAINTENANCE Final Result * Lipid panel (12/06/2022) [facility] LDL/HDL Ratio 2 0 - 4 Triglycerides 71 0 - 150 mg/dL Cholesterol 117 0 - 200 mg/dL HDL 48 >=40 mg/dL LDL Cholesterol 55 0 - 100 mg/dL Blood Venous blood specimen / Unknown us Historical Provider LAB BLOOD ORDERABLES Praveena l Result * Pap smear (09/05/2022) 09/05/2022 Narrative HISTORICAL TESTING LAB RESULTING AGENCY - 09/12/2022 7:30 AM EDT [id number] THINPREP PAP, IMAGED: NEGATIVE FOR SQUAMOUS INTRAEPITHELIAL [...]
--- OUTSIDE RECORDS SUMMARY | 2025-04-12 14:14 | XMS_ITS | Patient Health Record ---
Author Organization [employer] Address [address] [place] [address] Support Name Relationship Address Phone Nena Zafar Guarantor Unknown [phone] Allergies Allergen (clinical drug ingredient) Drug/Non Drug Allergy documented on EMR Reaction Allergy Type Onset Date Status Keflex hives Drug Allergy Active doxycycline Doxycycline hives Drug Allergy Act ivná Substance with sulfonamide structure and antibacterial mechanism [...] Status Risk Notes Problem Morbid obesity (disorder) (749380402) Morbid (severe) obesity due to excess calories (E66.01) Active confirmed Problem Generalized anxiety disorder (54606472) Generalized anxiety disorder (F41.1) Active confirmed Problem Migraine with aura (5132911) Migraine with aura, not intractable, without status migrainosus (G43.109) Active confirmed Problem Obstructive slee p apnea (adult) (pediatric) (G47.33) Active confirmed Problem Essential hypertension (36068287) Essential (primary) hypertension (I10) Active confirmed Problem Mild intermittent asthma (647916039) Mild intermittent asthma, uncomplicated (J45.20) Active confirmed Problem Gastro-esophageal reflux disease without esophagitis (369727617) Gastro-esophageal reflux disease without esophagitis (K21.9) Active confirmed Problem Attention deficit hyperactivity disorder, predominantly inattentive type (disorder) (44683978) Attention and concentration deficit (R41.840) Active confirmed Plan Of Treatment No Information Insurance Providers Payer Name Payer Address Payer Phone Subscriber Number Group Number Insured Name Patient Relationship to Insured Coverage Start Date Coverage End Date [facility] [address] [place] [phone] [id number] Nena Ballard Self - patient is the insured Medical (General) History Medical History History ICD Code Generalized anxiety disorder/major depre ssive disorder, sees psychiatry ADD GERD Mild intermittent asthma Migraine headaches with aura Hypertension AIDAN cannot tolerate CPAP Surgical History Surgery Date(Month/Year) strabismus surgery
== END 2025-04-12 14:09 | disposition home or self-care (01) ==
LOC: HO.HBST 13:12
PROVIDERS: Visit Provider Counselor Mental Health
DX: F41.9 Anxiety disorder, unspecified (principal); Z86.59 Personal history of other mental and behavioral disorders; Z71.89 Other specified counseling
CPT/HCPCS: 90791

== ENCOUNTER → 2025-04-15 15:51 | Outpatient (BNVA) | payer MEDICARE, SELFPAY | PROVIDERS: Visit Provider Physician Assistant Surgical ==

== ENCOUNTER 2025-04-27 13:29 | Outpatient (AMB) | payer OTHER, SELFPAY ==
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
--- OUTSIDE RECORDS SUMMARY | 2025-04-27 13:40 | XMS_ITS | Patient Health Record ---
Author Organization [facility] Address [address] [place] [address] Support Name Relationship Address Phone Nena Zafar Guarantor Unknown [phone] Allergies Allergen (clinical drug ingredient) Drug/Non Drug [...] Status Risk Notes Problem Morbid obesity (disorder) (752254818) Morbid (severe) obesity due to excess calories (E66.01) Active confirmed Problem Generalized anxiety disorder (24716781) Generalized anxiety disorder (F41.1) Active confirmed Problem Migraine with aura (6766506) Migraine with aura, not intractable, without status migrainosus (G43.109) Active confirmed Problem Obstructive sleep apnea syndrome (disorder) (89467337) Obstructive sleep apnea (adult) (pediatric) (G47.33) Active confirmed Problem Essential hypertension (10878549) Essential (primary) hypertension (I10) Active confirmed Problem Mild intermittent asthma (991734072) Mild intermittent asthma, uncomplicated (J45.20) Active confirmed Problem Gastro-esophageal reflux disease without esophagitis (001278005) Gastro-esophageal reflux disease without esophagitis (K21.9) Active confirmed Problem Attention deficit hyperactivity disorder, predominantly inattentive type (disorder) (09725485) Attention and concentration deficit (R41.840) Active confirmed Plan Of Treatment No Information Insurance Providers Payer Name Payer Address Payer Phone Subscriber Number Group Number Insured Name Patient Relationship to Insured Coverage Start Date Coverage End Date [facility] [address] [place] [phone] [id number] Nena Ballard Self - patient is the insured Medical (General) History Medical History History ICD Code Generalized anxiety disorder/major depre ssive disorder, sees psychiatry ADD GERD Mild intermittent asthma Migraine headaches with aura Hypertension AIDAN cannot tolerate CPAP Surgical History Surgery Date(Month/Year) strabismus surgery
== END 2025-04-27 14:13 | disposition home or self-care (01) ==
LOC: HO.HBST 13:29
PROVIDERS: Visit Provider Counselor Mental Health
DX: F41.9 Anxiety disorder, unspecified (principal); Z86.59 Personal history of other mental and behavioral disorders; Z71.89 Other specified counseling
CPT/HCPCS: 90834

== ENCOUNTER → 2025-04-27 13:29 | Outpatient (BNVA) | payer MEDICARE, SELFPAY | PROVIDERS: Visit Provider Counselor Mental Health | DX: Z13.89 Encounter for screening for other disorder (principal) ==

== ENCOUNTER 2025-05-04 08:09 | Day surgery (SDC) | payer MEDICARE, SELFPAY ==
--- OUTSIDE RECORDS SUMMARY | 2025-04-26 15:42 | XMS_ITS | Patient Health Record ---
Author Organization [facility] Address [address] [place] [address] Support Name Relationship Address Phone Nena Zafar Guarantor Unknown [phone] Allergies Allergen (clinical drug ingredient) Drug/Non Drug [...] Status Risk Notes Problem Morbid obesity (disorder) (178164159) Morbid (severe) obesity due to excess calories (E66.01) Active confirmed Problem Generalized anxiety disorder (81096828) Generalized anxiety disorder (F41.1) Active confirmed Problem Migraine with aura (3123171) Migraine with aura, not intractable, without status migrainosus (G43.109) Active confirmed Problem Obstructive sleep apnea syndrome (disorder) (48395808) Obstructive sleep apnea (adult) (pediatric) (G47.33) Active confirmed Problem Essential hypertension (95488685) Essential (primary) hypertension (I10) Active confirmed Problem Mild intermittent asthma (767677496) Mild intermittent asthma, uncomplicated (J45.20) Active confirmed Problem Gastro-esophageal reflux disease without esophagitis (237323630) Gastro-esophageal reflux disease without esophagitis (K21.9) Active confirmed Problem Attention deficit hyperactivity disorder, predominantly inattentive type (disorder) (27955694) Attention and concentration deficit (R41.840) Active confirmed Plan Of Treatment No Information Insurance Providers Payer Name Payer Address Payer Phone Subscriber Number Group Number Insured Name Patient Relationship to Insured Coverage Start Date Coverage End Date [facility] [address] [place] [phone] [id number] Nena Ballard Self - patient is the insured Medical (General) History Medical History History ICD Code Generalized anxiety disorder/major depre ssive disorder, sees psychiatry ADD GERD Mild intermittent asthma Migraine headaches with aura Hypertension AIDAN cannot tolerate CPAP Surgical History Surgery Date(Month/Year) strabismus surgery
[2025-05-02 12:18] VITALS: BMI 65.5
--- NOTE | 2025-05-02 12:33 | P.CONAN_ITS ---
Documented by User: Dee Cross NP 05/02/25 12:33 HPI - Anesthesia Eval Consult details Narrative: 25yo F for Upper Endoscopy BMI 65 Anesthesia Pre-Procedure Meds Is the patient on any of the following meds?: GLP1/DPP4 PMFSH Active Problems Active Problems: All Active Problems Presence of 52 mg levonorgestrel-releasing intrauterine device (IUD) (Acute) Well woman exam with routine gynecological exam (Acute) Numbness and tingling in both hands (Acute) Morbid obesity with BMI of 60.0-69.9, adult (Acute) Loud snoring (Acute) Fatigue due to sleep pattern disturbance (Acute) History of difficulty sleeping (Acute) Screening for cervical cancer (Acute) Obstructive sleep apnea (Acute) Polyuria (Acute) GERD (gastroesophageal reflux disease) (Acute) ADHD (Acute) PCOS (polycystic ovarian syndrome) (Acute) Migraine (Acute) Depression (Acute) Anxiety (Acute) Morbid obesity with BMI of 50.0-59.9, adult (Acute) Morbid obesity (Acute) High blood pressure (Acute) Asthma (Acute) Past Medical History Medical History Sleep apnea PCOS (polycystic ovarian syndrome) Migraines ADHD (attention deficit hyperactivity disorder) Depression GERD (gastroesophageal reflux disease) Morbid obesity Asthma High blood pressure Family History Family History Maternal Grandmother Breast cancer Mother Diabetes Other HTN (hypertension) Surgical History Surgical History S/P tonsillectomy History of eye surgery Social History Social History Housing: Apartment Alcohol intake: current Alcohol intake frequency: holidays/special occasions o nly Patient Tobacco Use Status: Never used Tobacco e-Cigarette/Vaping Use: Never Used Second Hand Smoke Exposure: No Use of substances other than those prescribed or required for medical reasons: No Are you DNR?: No Advance Directives: No Advance Directives Information Provided: Yes : No Poor oral hygiene: No service: No Current occupational status: employed Cognitive needs: No Hearing needs: No Vision needs: Yes (Glasses) Meds Allergies Allergy/AdvReac Type Severity Reaction Status Date / Time Penicillins Allergy Intermediate Hives Verified 04/15/25 16:14 Sulfa (Sulfonamide Allergy Intermediate Hives Verified 04/15/25 16:14 Antibiotics) doxycycline Allergy Hives Verified 04/15/25 16:14 cephalexin [From Keflex] AdvReac Redness of Verified 04/15/25 16:14 Skin Home Medications ?Medication ?Instructions ?Recorded ?Confirmed ?Last Taken ?Type levonorgestrel 21 mcg/24 hr (up to intrauterine 01/21/25 04/15/25 Unknown History 8 years) 52 mg intrauterine device (Mirena) Exam Height,Weight and Vital Signs: Height 5 ft 3 in Weight 167.829 kg Assessment and Plan Assessment Anesthesia Assessment: Chart Reviewed Documented by User: Rosa Yeboah MD 05/04/25 09:20 [facility] [place] Past Medical History Medical History Sleep apnea PCOS (polycystic ovarian syndrome) Migraines ADHD (attention deficit hyperactivity disorder) Depression GERD (gastroesophageal reflux disease) Morbid obesity Asthma High blood pressure Family History Family History Maternal Grandmother Breast cancer Mother Diabetes Other HTN (hypertension) Surgical History Surgical History S/P tonsillectomy History of eye surgery History of Problems with Anesthesia: No Social History Social History Housing: Apartment Alcohol intake: current Alcohol intake frequency: holidays/special occasions only Patient Tobacco Use Status: Never used Tobacco e-Cigarette/Vaping Use: Never Used Second Hand Smoke Exposure: No Use of substances other than those prescribed or required for medical reasons: No Are you DNR?: No Advance Directives: No Advance Directives Information Provided: Yes : No Poor oral hygiene: No service: No Current occupational status: employed Cognitive needs: No Hearing needs: No Vision needs: Yes (Glasses) Meds Allergies Allergy/AdvReac Type Severity Reaction Status Date / Time Penicillins Allergy Intermediate Hives Verified 04/15/25 16:14 Sulfa (Sulfonamide Allergy Intermediate Hives Verified 04/15/25 16:14 Antibiotics) doxycycline Allergy Hives Verified 04/15/25 16:14 cephalexin [From Keflex] AdvReac Redness of Verified 04/15/25 16:14 Skin Home Medications ?Medication ?Instructions ?Recorded ?Confirmed ?Last Taken ?Type levonorgestrel 21 mcg/24 hr (up to intrauterine 01/21/25 04/15/25 Unknown History 8 years) 52 mg intrauterine device (Mirena) Exam Airway Mallampati Class: III TM Dist: >3cm Neck ROM: Limited Loose/Missing/Broken Teeth: No Heart: RRR Lungs: CTA Assessment and Plan Assessment Anesthesia Assessment: Anesthesia Plan Discussed Final Anesthetic Review History of Problems with Anesthesia: No NPO: Yes ASA Class: III Final Preanesthetic Review: Meds/Allgs Chart Reviewed, Consent Obtained/Reviewed and Anes Risks/Benef Reviewed Patient Risk: Intermediate Procedure Risk: Intermediate Anesthetic Plan Anesthetic Plan: MAC: Disposition: Standard PACU
[2025-05-04 08:33] VITALS: BMI 64.8
[2025-05-04 08:38] VITALS: BP 129/80; PULSE 91; RESP 16; TEMP 36.2; O2SAT 96
[2025-05-04] MEDS: Lactated Ringers 1,000 ML 80 ML IVCONT (08:54)
[2025-05-04 09:04] LABS: HCG Quantitative < 2 mIU/mL
--- NOTE | 2025-05-04 09:04 | MHC.SHP ---
Pre-Procedural Eval Section A - 24 Hr Update-Section A only Date of Service: 05/04/25 The patient is an INPATIENT: No The patient has been examined within 24 hours of the surgical procedure. The History & Physical has been completed within 30 days and I have reviewed it.: Yes Section B - Complete if H&P > 30 days Chief Complaint: Morbid (severe) obesity due to excess calories Details of Present Illness: GERD Relevant Family History (Specify if Yes): No Relevant Social History: None Present Medications: None Medical History: No relevant PMH History of Previous Operations: No relevant previous surgery Allergies: Allergies Allergy/AdvReac Type Severity Reaction Status Date / Time Penicillins Allergy Intermediate Hives Verified 04/15/25 16:14 Sulfa (Sulfonamide Allergy Intermediate Hives Verified 04/15/25 16:14 Antibiotics) doxycycline Allergy Hives Verified 04/15/25 16:14 cephalexin [From Keflex] AdvReac Redness of Verified 04/15/25 16:14 Skin Review of Systems Sugical H&P ROS: Negative: Constitution, Cardiovascular, Respiratory, Neurological, Psychiatric, Hem-Onc, Allergic/Immunologic, Gastrointestinal, Genitourinary, Musculoskeletal, Integumentary, Endocrine and Eyes/Ears/Nose/Throat Exam Surgical H&P Exam: Normal: HEENT, Normal: Heart, Normal: Lungs, Normal: Extremities, Normal: Abdomen, Normal: Skin and Normal: Neurological Plan Diagnosis/Plan: Unchanged (EGD to assess etiology of GERD. Risks of bleeding and perforation were discussed with the patient and she is in agreement with the plan.) I have reviewed the history and physical and performed a pertinent physical examination on my patient. No changes have occurred unless specified. Time Spent With Patient Time: Total time managing care of this patient today ____ minutes.
--- NOTE | 2025-05-04 09:07 | P.BOP_ITS ---
Brief Operative Note Date of Service: 05/04/25 Pre-op diagnosis: GERD Post-op diagnosis: same Procedure: PROCEDURE DATE: 05/04/2025 PREOPERATIVE DIAGNOSIS: GERD POSTOPERATIVE DIAGNOSIS: ?Same as above. Normal endoscopy PROCEDURE: Fyjzthks-rpwgtf-dbvnqsiojjja with biopsies Surgeon: Fernando Rossi M.D.. Ph.D. Laborer Drying Department: None ? Anesthesia: IV sedation Estimated blood loss: ?Minimal FINDINGS AND PROCEDURE: ? OPERATIVE INDICATIONS: ?The patient is a 25 year old female known to me who is interested in bariatric surgery. The patient has severe GERD. Based on this information I recommended an upper endoscopy to evaluate the patient's symptoms. Risks and complications of the surgery were discussed with the patient in advance particularly the possibility of perforation or bleeding that may require surgical intervention. The patient understood the risks and was in agreement with the plan. ? PROCEDURE: After informed consent was obtained by the patient, the patient was ?transferred to the Operating Room and was placed in the supine position.? After successful induction of IV sedation, a mouth block was inserted and the patient was placed in the left lateral decubitus position. An upper endoscopy was performed next, the oropharynx and esophagus appeared within the normal limits. There was no hiatal hernia. The z-line was smooth. Two biopsies were obtained from the distal esophagus 2-3 cm proximal to the GE junction and two additional biopsies from the GE junction. The stomach was entered and it appeared to be of normal size. There was no gastritis. There was no stricture or ulcer. A biopsy was obtained from the gastric fundus and the antrum. No significant bleeding was noted from any of the biopsy sites. Retroflexion of the scope confirmed the presence of a normal GE junction. The s cope was then advanced into the duodenum which appeared to be normal as well. At that point the duodenum ?and the stomach were decompressed and the scope was withdrawn from the patient's mouth. The patient extubated and was transferred in stable condition to the Recovery Room for further care. I was present and performed all steps of the procedure. There were no residents to assist with this case. Agustín Rossi M.D., Ph.D. Surgeon: Cooper Rossi MD Anesthesia: MAC Was an Laborer Drying Department used for this Procedure?: No Estimated blood loss (mL): 0 IV fluids (mL): 400 Urine output (mL): 0 (No Rivera to record output) Pathology: other (1) antrum x1, 2) fundus x1, 3) GE junction x2, 4) distal esophagus x2) Condition: stable Disposition: PACU
[2025-05-04 09:25] VITALS: BP 153/80; PULSE 90; RESP 12; TEMP 36.6; O2SAT 98
[2025-05-04 09:40] VITALS: BP 126/71; PULSE 100; RESP 18; TEMP 37.2; O2SAT 95
== END 2025-05-04 09:58 | disposition home or self-care (01) ==
PROVIDERS: Anesthesiology; Visit Provider Surgery
PROC: 0DJ08ZZ Inspection of Upper Intestinal Tract, Via Natural or Artificial Opening Endoscopic (ICD-10-PCS; CPT 43235; principal; 2025-05-04 09:30)
DX: K21.9 Gastro-esophageal reflux disease without esophagitis (principal); E66.01 Morbid (severe) obesity due to excess calories; Z68.44 Body mass index [BMI] 60.0-69.9, adult; I10 Essential (primary) hypertension; J45.909 Unspecified asthma, uncomplicated; E28.2 Polycystic ovarian syndrome; G47.33 Obstructive sleep apnea (adult) (pediatric); G43.909 Migraine, unspecified, not intractable, without status migrainosus; R53.83 Other fatigue; F32.A Depression, unspecified; Z79.899 Other long term (current) drug therapy; Z79.85 Long-term (current) use of injectable non-insulin antidiabetic drugs; Z88.0 Allergy status to penicillin; Z88.1 Allergy status to other antibiotic agents; Z88.2 Allergy status to sulfonamides; Z98.890 Other specified postprocedural states
CPT/HCPCS: 43239; 36415; 84702; 88305; 88313; 88342; J2003; J2704

== ENCOUNTER → 2025-05-04 08:09 | Outpatient (BNV) | payer MEDICARE, SELFPAY | PROVIDERS: Visit Provider Surgery | DX: K21.9 Gastro-esophageal reflux disease without esophagitis (principal) | CPT/HCPCS: 43239 ==

== ENCOUNTER 2025-05-10 15:00 | Outpatient (AMB) | payer MEDICARE, SELFPAY ==
--- NOTE | 2025-05-10 15:23 | A.OFFVIS_ITS ---
Vital Signs 05/10/25 15:25 Height 5 ft 3 in Weight 360 lb 6 oz BMI 63.8 BP 128/82 Pulse 90 Pulse Source Pulse Oximeter Pulse Oximetry (%) 97 Oxygen Delivery Method Room Air Intake Visit Reasons: 3m follow up AIDAN Intake Note: Patient presents follow up Sleep. PSG in chart(AHI-73/hr, REM AHI 142/hr, LIBBY 57%. trialed on CPAP 4-Bipap . Frequent residual events on CPAP and lower BiPAP. Breathing and oxygenation stabilized on BiPAP to . Assaria patient on BiPAP ). Allergies Penicillins Allergy (Intermediate, Verified 05/10/25 15:27) Hives Sulfa (Sulfonamide Antibiotics) Allergy (Intermediate, Verified 05/10/25 15:27) Hives doxycycline Allergy (Verified 05/10/25 15:27) Hives cephalexin (From Keflex) Adverse Reaction (Verified 05/10/25 15:27) Redness of Skin HPI Comments Details: 25 year r. handed female referred to for sleep apnea by her PCP Iraida Woodruff. Titation study completed on April 06, 2025. Labs reviewed with pt. D is low. She has a h/o of asthma and started using her Bipap machine 2 weeks ago though does not have sufficient data. She has access to the [place] laureano on her phone. She is washing her mask and tubing as needed. She has difficulty staying asleep still continues to snore loudly and talks in her sleep. She feels hot and uncomfortable very claustrophobic with the mask on and is tryinkg to get acclimated. RLS She has numbness and tingling bilaterally in the dorsal aspect of her hands, increases with sitting, and tasks like building, chopping, cooking. She has to shake her hands vigorously then it subsides. Declines a dopamine agonist today. Migraine/Headaches daily and can evolve into migraines. She has daily headaches, which can at times turn into migraines if not controlled. They start on the L. side of the head and migrate to the back of the head with pressure and tightness. Also can begin from the frontal to occipital migrating to the nape of her head. The intensity is 5/6 now and manageble with diet and lifestyle management. It does not stop her from getting her tasks completed. She can take a tylenol otc and lie down in a dark room for a few m inutes. She denies photophobia/ phonophobia and hyperosmia. She was taking Gabapentin for headaches 300mg PO BID, stopped due to feeling tired. Her mood has been less anxious but well controlled with Zoloft 50mg po daily. She has T2DM, PCOS and taking zepbound 2.5mg x 1 weeks for 4weeks, then 5mg subcut every week. She has a f/h lupus, and epilepsy, she is prone to kidney stones, She does not smoke, drink or do edibles or vaping of MJ. [facility] Medical History Sleep apnea PCOS (polycystic ovarian syndrome) Migraines ADHD (attention deficit hyperactivity disorder) Depression GERD (gastroesophageal reflux disease) Morbid obesity Asthma High blood pressure Surgical History S/P tonsillectomy History of eye surgery Family History Maternal Grandmother Breast cancer Mother Diabetes Other HTN (hypertension) Social History Housing: Apartment Alcohol intake: current Alcohol intake frequency: holidays/special occasions only Patient Tobacco Use Status: Never used Tobacco e-Cigarette/Vaping Use: Never Used Second Hand Smoke Exposure: No service: No Current occupational status: employed Cognitive needs: No Hearing needs: No Vision needs: Yes (Glasses) Female Reproductive History Menstrual Age of Menarche: 11 Physical Exam Vital Signs: Last Vital Signs Pulse 90 05/10/25 15:25 BP 128/82 05/10/25 15:25 Pulse Ox 97 05/10/25 15:25 Oxygen Delivery Method Room Air 05/10/25 15:25 BMI result Body Mass Index 63.8 BMI is elevated to 63.8 and patient coughs between sentences, she has asthma. Const General: cooperative, no acute distress and tired appearing Nutritional Appearance: obese Orientation/consciousness: patient oriented x3 HEENT Face and sinus: Yes face symmetric Throat: Yes other ([place] score of 4) Eyes Pupils: Equal, round and reactive pupils present Neck Other: Very tight scalene and trapezius. Neck: Yes full ROM and Yes supple Resp Effort & Inspection: able to speak in complete sentences Neuro General: patient oriented x3 and moves all extremities Cranial nerves: Yes Facial sensation intact/muscles of mastication intact, Yes Equal, round and reactive pupils present, Yes Normal accommodation reflex present, Yes Bilaterally intact EOM present, Yes Midline tongue present, Yes Ability to bilaterally rotate head present (pain on lateral rom to the l/r) and Yes Ability to bilaterally elevate shoulders present Gait exam (Neuro): Normal gait present Motor exam (neuro): 5/5 motor strength present throughout and Normal motor muscle tone present throughout Psych Appearance: grossly normal Thought process: Normal thought process present Thought content: Normal thought content present Results Reviewed Results Reviewed: Sleep Titration 04/06/2025 completed. AIDAN complinace on my air laureano, 2 weeks of data. 03/2025 Chest Xray Findings: Normal lung volumes. Lungs are clear. No pneumothorax or pleural effusion. Heart size normal. No passive venous congestion. No midline shift or tracheal deviation. Osseous structures intact Assessment & Plan Assessment & Plan (1) Fatigue due to sleep pattern disturbance: Code(s): R53.83 - Other fatigue; G47.9 - Sleep disorder, unspecified Category: Medical (2) History of difficulty sleeping: Code(s): Z72.821 - Inadequate sleep hygiene Category: Medical (3) Loud snoring: Code(s): R06.83 - Snoring Category: Medical (4) Morbid obesity with BMI of 60.0-69.9, adult: Code(s): E66.01 - Morbid (severe) obesity due to excess calories; Z68.44 - Body mass index [BMI] 60.0-69.9, adult Category: Medical (5) Migraine: Comment: >15 headaches, which can evolve into migraines declines sumatriptan today. Code(s): G43.909 - Migraine, unspecified, not intractable, without status migrainosus Category: Medical Qualifiers: Intractability: intractable Migraine type: chronic migraine (15 or more days per month) without aura Status migrainosus presence: without status migrainosus Qualified Code(s): G43.719 - Chronic migraine without aura, intractable, without status migrainosus Plan Labs reviewed with pt. vit d is low and T2 DM is better controlled today. Sleep Study in lab due to asthma BMI is 66.4 Weight Management Headache / Migraine will f/u at next visit. Sumatriptan? RLS? ncs and emg if not improved with a dopamine agonist and manageement of T2DM patient education : Compliance of bipap >4 hours and daily emphasized. F/U in 3 months Medications: Refilled cholecalciferol (vitamin D3) 1,250 mcg PO QWEEK 90 caps 0RF Patient Instructions: Sleep Hygiene provided: set a scheduled bedtime and wake time to help regulate the circadian rhythm and balance the release of pituitary hormones. Sleep in a dark room, temperatures below 68 degrees, and no devices n bed. Limit caffeinated products 6 hours prior to bed, and limit fluids 2-4 hours prior to bed. Gentle night yoga, diffusing essential oils, and playing soft music can be relaxing. RLS? Migraines? T2DM Coding Level of Care Code Est Pt Level 4 (51026) Diagnoses Fatigue due to sleep pattern disturbance R53.83; G47.9 History of difficulty sleeping Z72.821 Loud snoring R06.83 Morbid obesity with BMI of 60.0-69.9, adult E66.01; Z68.44 Intractable chronic migraine without aura and without status migrainosus G43.719 Intractability: intractable Migraine type: chronic migraine (15 or more days per month) without aura Status migrainosus presence: without status migrainosus Time Spent (min) 30 Comment improving
[2025-05-10 15:25] VITALS: BP 128/82; PULSE 90; O2SAT 97; BMI 63.8
--- OUTSIDE RECORDS SUMMARY | 2025-05-10 17:29 | XMS_ITS | Patient Health Record ---
Author Organization [employer] Address [address] [place] [address] Support Name Relationship Address Phone Nena Zafar Guarantor Unknown [phone] Allergies Allergen (clinical drug ingredient) Drug/Non Drug [...] Status Risk Notes Problem Morbid obesity (disorder) (802061203) Morbid (severe) obesity due to excess calories (E66.01) Active confirmed Problem Generalized anxiety disorder (88130726) Generalized anxiety disorder (F41.1) Active confirmed Problem Migraine with aura (0990821) Migraine with aura, not intractable, without status migrainosus (G43.109) Active confirmed Problem Obstructive sleep apnea syndrome (disorder) (94710943) Obstructive sleep apnea (adult) (pediatric) (G47.33) Active confirmed Problem Essential hypertension (35942045) Essential (primary) hypertension (I10) Active confirmed Problem Mild intermittent asthma (814352435) Mild intermittent asthma, uncomplicated (J45.20) Active confirmed Problem Gastro-esophageal reflux disease without esophagitis (039931511) Gastro-esophageal reflux disease without esophagitis (K21.9) Active confirmed Problem Attention deficit hyperactivity disorder, predominantly inattentive type (disorder) (48454444) Attention and concentration deficit (R41.840) Active confirmed Plan Of Treatment No Information Insurance Providers Payer Name Payer Address Payer Phone Subscriber Number Group Number Insured Name Patient Relationship to Insured Coverage Start Date Coverage End Date [facility] [address] [place] [phone] [id number] Nena Ballard Self - patient is the insured Medical (General) History Medical History History ICD Code Generalized anxiety disorder/major depre ssive disorder, sees psychiatry ADD GERD Mild intermittent asthma Migraine headaches with aura Hypertension AIDAN cannot tolerate CPAP Surgical History Surgery Date(Month/Year) strabismus surgery
== END 2025-05-10 16:07 | disposition home or self-care (01) ==
LOC: HO.HSMS 15:01
PROVIDERS: Visit Provider Physician Assistant Medical
DX: R53.83 Other fatigue (principal); G47.9 Sleep disorder, unspecified; Z72.821 Inadequate sleep hygiene; R06.83 Snoring; E66.01 Morbid (severe) obesity due to excess calories; Z68.44 Body mass index [BMI] 60.0-69.9, adult; G43.719 Chronic migraine without aura, intractable, without status migrainosus
CPT/HCPCS: 99214

== ENCOUNTER → 2025-05-10 15:00 | Outpatient (BNVA) | payer MEDICARE, SELFPAY | PROVIDERS: Visit Provider Physician Assistant Medical | DX: G47.9 Sleep disorder, unspecified (principal); R53.83 Other fatigue; Z72.821 Inadequate sleep hygiene; E66.01 Morbid (severe) obesity due to excess calories; G43.719 Chronic migraine without aura, intractable, without status migrainosus; Z68.44 Body mass index [BMI] 60.0-69.9, adult | CPT/HCPCS: 99212 ==

== ENCOUNTER 2025-05-18 13:40 | Outpatient (REF) | payer MEDICARE, SELFPAY | END 2025-05-18 13:41 | disposition home or self-care (01) | LOC: HO.LNP 13:40 | PROVIDERS: Visit Provider Obstetrics & Gynecology | DX: R87.610 Atypical squamous cells of undetermined significance on cytologic smear of cervix (ASC-US) (principal); R87.810 Cervical high risk human papillomavirus (HPV) DNA test positive | CPT/HCPCS: 57454; 88305 ==

== ENCOUNTER 2025-05-18 13:40 | Outpatient (AMB) | payer MEDICARE, SELFPAY ==
--- NOTE | 2025-05-18 13:50 | A.OFFVIS_ITS ---
Intake Visit Reasons: Colposcopy Cut Off Saw Set Up Operator: Cut Off Saw Set Up Operator Present (Little) Accompanied by: Self / Same As Patient Allergies Penicillins Allergy (Intermediate, Verified 05/18/25 13:51) Hives Sulfa (Sulfonamide Antibiotics) Allergy (Intermediate, Verified 05/18/25 13:51) Hives doxycycline Allergy (Verified 05/18/25 13:51) Hives cephalexin (From Keflex) Adverse Reaction (Verified 05/18/25 13:51) Redness of Skin HPI Comments Details: Presenting with abnormal Pap showing ASCUS HPV high-risk positive, HPV 16/18 negative COUNTS INCLUDE 234 BEDS AT THE [facility] Medical History Sleep apnea PCOS (polycystic ovarian syndrome) Migraines ADHD (attention deficit hyperactivity disorder) Depression GERD (gastroesophageal reflux disease) Morbid obesity Asthma High blood pressure Surgical History S/P tonsillectomy History of eye surgery Family History Maternal Grandmother Breast cancer Mother Diabetes Other HTN (hypertension) Social History Housing: Apartment Alcohol intake: current Alcohol intake frequency: holidays/special occasions only Patient Tobacco Use Status: Never used Tobacco e-Cigarette/Vaping Use: Never Used Second Hand Smoke Exposure: No service: No Current occupational status: employed Cognitive needs: No Hearing needs: No Vision needs: Yes (Glasses) Female Reproductive History Menstrual Age of Menarche: 11 Review of Systems Const All systems reviewed & are unremarkable except as noted in HPI and below Reports as per HPI and Reports no additional complaints GI Reports no additional complaints Reports no additional complaints Office Procedures Colposcopy Colposcopy: Pre-Procedure Counseling: Before beginning the procedure, I conducted comprehensive counseling with the patient. We thoroughly discussed the procedure itself, including its details, alternatives, and all associated risks. This included but not limited to the following complications such as bleeding, infection, and injury to the vagina, bladder, and vessels, as well as the potential need for transfusion with all its associated risks. Subsequently, the patient sign the consent. Pap smear result: LSIL. Urine test in office = Negative Procedure: During the procedure, the following steps were performed: A speculum was inserted, and acetic acid was applied. Colposcopy was conducted, allowing visualization of the transformation zone. Acetowhite lesions were identified at the 9+ 11+ 1 o'clock position. Cervical biopsies were obtained from the 9+ 11+ 1 o'clock position, followed by an endocervical curettage (ECC). Vaginoscopy of the upper vagina revealed no evidence of aceto-white lesions. Hemostasis was achieved using Monsel solution, and the patient tolerated the procedure well. Post-Procedure Instructions: The patient was advised to promptly contact the office or the after hours answering service or go to the emergency room if experiencing a temperature exceeding 100.4?F, abdominal pain, nausea/vomiting, or bleeding. Additionally, the patient was instructed to abstain from vaginal intercourse and bathtub use. The patient confirmed understanding of these instructions. Discharge Instructions: The patient was instructed to schedule a follow-up appointment in 2 weeks for further evaluation and management. Please note that this note was generated using a voice recognition program, and errors may have occurred during truck supervisor. Procedure code (CPT) selection complete Assessment & Plan Assessment & Plan (1) ASCUS with positive high risk HPV cervical: Code(s): R87.610 - Atypical squamous cells of undetermined significance on cytologic smear of cervix (ASC-US); R87.810 - Cervical high risk human papillomavirus (HPV) DNA test positive Category: Medical Plan: Discussed with the patient the result of her abnormal pap, its significance, risk of progression, persistence, and regression. the false positive/negative rate of a Pap smear as a screening test in detecting cervical cancer and the indication for a diagnostic test -colposcopy, biopsy, endocervical curettage. The patient verbalized understanding and agreed with the plan, all questions answered. Colposcopy, biopsy /ECC done, see procedure note Orders: Orders AMB Colposcopy Today R87.610 - Atypical squamous cells of undetermined si gnificance on cytologic smear of cervix (ASC-US), R87.810 - Cervical high risk human papillomavirus (HPV) DNA test positive Coding Level of Care Code Procedure Only Diagnoses ASCUS with positive high risk HPV cervical R87.610; R87.810
--- OUTSIDE RECORDS SUMMARY | 2025-05-18 16:08 | XMS_ITS | Patient Health Record ---
Author Organization [facility] Address [address] [place] [address] Support Name Relationship Address Phone Nena Zafar Guarantor Unknown [phone] Allergies Allergen (clinical drug ingredient) Drug/Non Drug [...] Status Risk Notes Problem Morbid obesity (disorder) (336951682) Morbid (severe) obesity due to excess calories (E66.01) Active confirmed Problem Generalized anxiety disorder (55227634) Generalized anxiety disorder (F41.1) Active confirmed Problem Migraine with aura (4087522) Migraine with aura, not intractable, without status migrainosus (G43.109) Active confirmed Problem Obstructive sleep apnea syndrome (disorder) (38386800) Obstructive sleep apnea (adult) (pediatric) (G47.33) Active confirmed Problem Essential hypertension (90782716) Essential (primary) hypertension (I10) Active confirmed Problem Mild intermittent asthma (128376519) Mild intermittent asthma, uncomplicated (J45.20) Active confirmed Problem Gastro-esophageal reflux disease without esophagitis (099283918) Gastro-esophageal reflux disease without esophagitis (K21.9) Active confirmed Problem Attention deficit hyperactivity disorder, predominantly inattentive type (disorder) (99439047) Attention and concentration deficit (R41.840) Active confirmed Plan Of Treatment No Information Insurance Providers Payer Name Payer Address Payer Phone Subscriber Number Group Number Insured Name Patient Relationship to Insured Coverage Start Date Coverage End Date [facility] [address] [place] [phone] [id number] Nena Ballard Self - patient is the insured Medical (General) History Medical History History ICD Code Generalized anxiety disorder/major depre ssive disorder, sees psychiatry ADD GERD Mild intermittent asthma Migraine headaches with aura Hypertension AIDAN cannot tolerate CPAP Surgical History Surgery Date(Month/Year) strabismus surgery
== END 2025-05-18 14:29 | disposition home or self-care (01) ==
LOC: HO.HWS 13:40
PROVIDERS: Visit Provider Obstetrics & Gynecology
DX: R87.610 Atypical squamous cells of undetermined significance on cytologic smear of cervix (ASC-US) (principal); R87.810 Cervical high risk human papillomavirus (HPV) DNA test positive
CPT/HCPCS: 57454

== ENCOUNTER 2025-05-25 14:40 | Outpatient (AMB) | payer OTHER, SELFPAY ==
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
--- OUTSIDE RECORDS SUMMARY | 2025-05-25 15:06 | XMS_ITS | Clinical Summary ---
Author Organization [address] Address [address] [place] [phone] Phone Care Team Providers Care Telecasting Technician Name Role Phone Unavailable Primary Care Provider Unavailabl e Allergies Active Allergy Reactions Criticality Noted Date Comments Cephalexin 10/23/2020 Burning sensation all over body. Doxycycline Hyclate 10/23/2020 hives Penaten 02/20/2023 Penicillin G Hives High 02/17/2023 Pt stated had bad reaction. She had hives all over the body. Sulfa (Sulfonamide Antibiotics) 03/06/2021 Medications cloNIDine (FHAQRKJD-OKJ-1 ) 0.3 mg/[address] 1 Patch onto the skin once a week. 4 Active emollient comb no.2, bulk, ointment Apply 0.5 g topically 2 times daily. 5% gabapentin ointment Sig: Apply 0.5 g daily to affected area Patient phone number: [phone] (home) 3 Active cholecalciferol (VITAMIN D-3) 1,250 [...] processing disorder 08/27/2024 Overview (08/27/2024): according to [email or web address] hearing report dated 01-15-13 Report from 02-15-13- [...] 6 0.0-69.9, adult ([facility] V24, [facility] V28) 08/27/2024 Chlamydia 11/14/2023 PCOS [...] Recommended ACT -14 = 20 [facility]-04-[facility]- no prob since 03-27-16[facility] As of [...] eval confirms dx of ADHD- accommodations in [employer]- full inclusion 03-07-15: normal [...] (Infanrix) 6wks to less than 7yo ,07/17/2000,1999,09/04,1999 JKnR-GDA-[id number] (Pentacel) 2mo to less than 5yo 06/18/2000,1999,1999,06/01 H1N1 Inj Preservative Free 12/22/2009 HPV, Quadrivalent 04/30/2013,07/14/2012,04/14/20 12 Hepatitis B (Pnqvkwx-F-Skgsh , Recombivax HB-Adult) 19yo and older 07/12/2020,02/09/2020,01/05/2020 [...] 04/27/2003,06/12/2000 Meningococcal MCV4P 08/08/2015,04/14/2012 PPD Test 11/10/2019 [employer] SARS-CoV-2 COVID-19, mRNA, LNP-S, preservative free 09/04/2021 [...] TUBES OTHER SURGICAL HISTORY age 1.5yr PROCEDURE: [place] BRONCHOSCOPY W/TRANSBRONCHIAL LUNG BX 1 LOBE EYE SURGERY PROCEDURE: HISTORICAL EYE SURGERY Medical History Medical History Date Comments Essential hypertension 08/31/2019 DX:Essent ial hypertension Migraine with aura DX:Migraine w ith aura; COMMENT: Naprosyn 04-14-12: worsening- started amitriptyline 25 mg hs Saw neurologist and is on topamax- now 100 mg 08-08-15: ped neuro- verapamil 40 mg bid in addition to [id number] mg hs; fioricet PRN, riboflavin, magnesium 10-10-15: [...] 3:15 PM EDT Office Visit Nephrology - [place] [address] [place] [address] Christopher Pollard MD [address] [place] [address] Health Maintenance Due Date Last [...] * Annual BMP Blood Test (01/22/2024) Pathologist [facility] Annual BMP Blood Test abstracted [facility] Provider HEALTH MAINTENANCE Final Result * Gonorrhea/Chlamydia Screening (11/13/2023) Pathologist [facility] Gonorrhea/Chla mydia Screening abstracted [facility] Provider HEALTH MAINTENANCE Final Result * Depression Screening (10/06/2023) Pathologist [facility] Depression Screening abstracted [facility] Provider HEALTH MAINTENANCE Final Result * [...] RESULTING AGENCY - 09/12/2022 7:30 AM EDT [id number] THINPREP PAP, IMAGED: NEGATIVE FOR SQUAMOUS INTRAEPITHELIAL [...] Most Recently Relevant to Health Maintenance Insurance * Guarantor: Nena Zafar Account Type Relation to Patient Date of Phone Billing Address Personal/Family Self 2000 [address] [facility] [address] [place] [address] [id number] [place]ICA[place] - [place]
--- OUTSIDE RECORDS SUMMARY | 2025-05-25 15:06 | XMS_ITS | Encounter Summary ---
Author Organization [facility] Address [address] [place] [address] Care Team Providers Care Corrections Cadet Name Role Phone Arpita White MD Primary Care Provider Shanique Mccarthy MD Primary Care Provider Brandee [facility] Pcp Primary Care Provider Martina Cade MD Primary Care Provider Unavail Darin Ferrer MD Primary Care Provider [phone] Sushma Jin MANAGING CONSULTANT Primary Care Provider Aranza vailable Carolyn Skaggs MD Primary Care Prov ider Sushma Jin MANAGING CONSULTANT Primary Care Provider Aranza vailable Encounter Details Date Type Department Care Team Description 2000 [employer] [facility] - [address] [address] Live Orellana MD UNSPECIFIED VIRAL INFECTION Social History Tobacco Use Types Packs/Day Years Used Date Smoking Tobacco: Never Assessed Sex Assigned at Date Recorded Female 03/19/2022 3:55 PM E DT Job Start Date Occupation Industry Not on file Not on file Not on file documented as of this encounter Plan of Treatment Not on file documented as of this encounter Visit Diagnoses Diagnosis Unspecified viral infection, in conditions classified elsewhere and of unspecified site documented in this encounter Care Teams Corrections Cadet Relationship Specialty Start Date End Date Arpita White MD PCP - General 99 07/22/18 Shanique Ayala MD PCP - General 2000 99 [facility], Pcp PCP - General Internal Medicine 07/23/18 12/20/18 Martina Gonzalez MD PCP - General Internal Medicine 12/21/18 10/14/21 Darin Restrepo MD [address] [place] [address] PCP - General Internal Medicine 10/15/21 06/16/22 Sushma Jin NP [address] [place], [place] [id number] PCP - General Internal Medicine 06/17/22 09/04/22 Carolyn Skaggs MD [address] [place] [address] PCP - General Internal Medicine 09/05/22 11/11/23 Sushma Jin NP [address] [place] [address] PCP - General Internal Medicine 11/12/23 documented as of this encounter
== END 2025-05-25 15:04 | disposition home or self-care (01) ==
LOC: HO.HBST 14:40
PROVIDERS: Visit Provider Counselor Mental Health
DX: F41.1 Generalized anxiety disorder (principal); F90.9 Attention-deficit hyperactivity disorder, unspecified type; Z71.89 Other specified counseling
CPT/HCPCS: 90834

== ENCOUNTER 2025-05-26 10:16 | Outpatient (REF) | payer OTHER, MEDICARE, SELFPAY ==
--- NOTE | ~2025-05-26 | US_ITS ---
EXAMINATION: US ABDOMEN COMPLETE WITH LIVER ELASTOGRAPHY HISTORY: E66.01 - Morbid (severe) obesity due to excess calories TECHNIQUE: Real-time grayscale ultrasound imaging of the abdomen was performed and images were reviewed. COMPARISON: There are no prior studies available for comparison. FINDINGS: Liver: The right lobe of the liver measures 14.7 cm in size. The left lobe of the liver measures 13.6 cm in size. The liver demonstrates increased echotexture, consistent with steatosis. No focal mass or intrahepatic biliary ductal dilatation is identified. There is normal hepatopedal flow in the portal vein. Ultrasound elastography of the liver was performed with 10 separate measurements of the liver parenchyma with the patient in the supine position. Measurements were obtained approximately 2 cm below Henry's capsule and perpendicular to the capsule. The median shear wave velocity is 1.15 m/s. The interquartile range/median (IQR/median) is 0.16. Gallbladder and biliary tree: The gallbladder is unremarkable, without evidence of calculi, wall thickening, or pericholecystic fluid. There is no sonographic Rodriguez sign. The common bile duct is normal in caliber measuring 3 mm. Kidneys: The right kidney measures 12.7 cm in length. The left kidney measures 13.2 cm in length. The kidneys are unremarkable, without evidence of masses, hydronephrosis, or calculi. Pancreas: The pancreatic head, neck, and body are unremarkable. The pancreatic tail is obscured by bowel gas. Spleen: The spleen is normal in size and contour, measuring 11.0 cm in length. Abdominal aorta and inferior vena cava: The visualized portions of the abdominal aorta and inferior vena cava are normal in caliber. There is no free fluid in the abdomen. US/US abdomen comp w elastography IMPRESSION: Hepatic steatosis. The median shear wave velocity in the liver is 1.15 m/s, corresponding to a median liver stiffness of 4.06 kPa. The IQR/median value is 0.16. This is indicative of a poor quality data set, and the estimated liver stiffness may be unreliable. Findings are indicative of a normal elastography value with a low likelihood of severe fibrosis or cirrhosis. REFERENCE: Society of Radiologists in Ultrasound Liver Stiffness Thresholds (2020): LIVER STIFFNESS THRESHOLDS: *Shear wave velocity less than 1.3 m/s (Liver Stiffness equal or less than 5 kPa): High probability of being normal. *Shear wave velocity less than 1.7 m/s (Liver Stiffness less than 9 kPa): In the absence of other known clinical signs, rules out compensated advanced chronic liver disease. *Shear wave velocity between 1.7-2.1 m/s (Liver Stiffness 9-13 kPa): Suggestive of compensated advanced chronic liver disease but need further test for confirmation. *Shear wave velocity between 2.1-2.4 m/s (Liver Stiffness 13-17 kPa): Rules in compensated advanced chronic liver disease. *Shear wave velocity greater than 2.4 m/s (Liver Stiffness over 17 kPa): Suggestive of clinically significant portal hypertension. QUALITY OF DATA SET: *IQR/Median value equal or less than 0.15 implies a quality data set. *IQR/Median value over 0.15 implies a poor quality data set. SIGNIFICANT CHANGE FROM PRIOR EXAM: Significant change if liver stiffness measurement is 10% or greater from prior exam. OTHER CONSIDERATIONS: The stage of liver fibrosis may be overestimated in the setting of acute hepatitis, liver inflammation, elevated liver function tests, hepatic vascular congestion, obstructive cholestasis, non-fasting state, and infiltrative diseases such as amyloidosis and lymphoma. In some patients with NAFLD, the liver stiffness thresholds for compensated advanced chronic liver disease may be lower. In causes other than viral hepatitis and NAFLD, liver stiffness thresholds are not well established. Electronically signed by: Hilario Toure MD 05/26/2025 11:33 AM EDT
--- OUTSIDE RECORDS SUMMARY | 2025-05-26 10:57 | XMS_ITS | Patient Health Record ---
Author Organization [employer] Address [address] [facility] [address] [place] [address] Support Name Relationship Address Phone Nean Zafar Guarantor Unknown [phone] Allergies Allergen (clinical drug ingredient) Drug/Non Drug [...] Status Risk Notes Problem Morbid obesity (disorder) (428936193) Morbid (severe) obesity due to excess calories (E66.01) Active confirmed Problem Generalized anxiety disorder (33200974) Generalized anxiety disorder (F41.1) Active confirmed Problem Migraine with aura (8011188) Migraine with aura, not intractable, without status migrainosus (G43.109) Active confirmed Problem Obstructive sleep apnea syndrome (disorder) (99247590) Obstructive sleep apnea (adult) (pediatric) (G47.33) Active confirmed Problem Essential hypertension (64240209) Essential (primary) hypertension (I10) Active confirmed Problem Mild intermittent asthma (561255185) Mild intermittent asthma, uncomplicated (J45.20) Active confirmed Problem Gastro-esophageal reflux disease without esophagitis (600601501) Gastro-esophageal reflux disease without esophagitis (K21.9) Active confirmed Problem Attention deficit hyperactivity disorder, predominantly inattentive type (disorder) (80263723) Attention and concentration deficit (R41.840) Active confirmed Plan Of Treatment No Information Insurance Providers Payer Name Payer Address Payer Phone Subscriber Number Group Number Insured Name Patient Relationship to Insured Coverage Start Date Coverage End Date [facility] [address] [place] [phone] [id number] Nena Ballard Self - patient is the insured Medical (General) History Medical History History ICD Code Generalized anxiety disorder/major depre ssive disorder, sees psychiatry ADD GERD Mild intermittent asthma Migraine headaches with aura Hypertension AIDAN cannot tolerate CPAP Surgical History Surgery Date(Month/Year) strabismus surgery
--- OUTSIDE RECORDS SUMMARY | 2025-05-26 10:57 | XMS_ITS | Encounter Summary ---
Author Organization [facility] Address [address] [place] [address] Care Team Providers Care Court Security Officer Name Role Phone Arpita White MD Primary Care Provider Shanique Mccarthy MD Primary Care Provider Brandee [facility] Pcp Primary Care Provider Martina Cade MD Primary Care Provider Unavail Darin Ferrer MD Primary Care Provider [phone] Sushma Jin TUBE DRAWER Primary Care Provider Aranza vailable Carolyn Skaggs MD Primary Care Prov ider Sushma Jin TUBE DRAWER Primary Care Provider Aranza vailable Encounter Details Date Type Department Care Team Description 2000 [employer] [facility] - [address] [address] Live Orellana MD UNSPECIFIED VIRAL INFECTION Social [...] site documented in this encounter Care Teams Court Security Officer Relationship Specialty Start Date End Date Arpita White MD PCP - General 99 07/22/18 Shanique Ayala MD PCP - General 2000 99 [facility], Pcp PCP - General Internal Medicine 07/23/18 12/20/18 Martina Gonzalez MD PCP - General Internal Medicine 12/21/18 10/14/21 Darin Restrepo MD [address] [place] [address] PCP - General Internal Medicine 10/15/21 06/16/22 Sushma Jin NP [address] [place], [place] [id number] PCP - General Internal Medicine 06/17/22 09/04/22 Carolyn Skaggs MD [address] [place] [address] PCP - General Internal Medicine 09/05/22 11/11/23 Sushma Jin NP [address] [place] [address] PCP - General Internal Medicine 11/12/23 documented as of this encounter
--- OUTSIDE RECORDS SUMMARY | 2025-05-26 10:58 | XMS_ITS | Clinical Summary ---
Author Organization [address] Address [address] [place] [address] Phone Care Team Providers Care Internet Marketing Manager Name Role Phone Unavailable Primary Care Provider Unavailabl e Allergies Active Allergy Reactions Criticality Noted Date Comments Cephalexin 10/23/2020 Burning sensation all over body. Doxycycline Hyclate 10/23/2020 hives Penaten 02/20/2023 Penicillin G Hives High 02/17/2023 Pt stated had bad reaction. She had hives all over the body. Sulfa (Sulfonamide Antibiotics) 03/06/2021 Medications cloNIDine (OZZZBMKC-JRR-4 ) 0.3 mg/[address] 1 Patch onto the skin once a week. 4 Active emollient comb no.2, bulk, ointment Apply 0.5 g topically 2 times daily. 5% gabapentin ointment Sig: Apply 0.5 g daily to affected area Patient phone number: [phone] (home) 3 Active cholecalciferol (VITAMIN D-3) 1,250 [...] processing disorder 08/27/2024 Overview (08/27/2024): according to [employer] hearing report dated 01-15-13 Report from [...] obesity with BMI of 6 0.0-69.9, adult ([facility] V24, [facility] V28) 08/27/2024 Chlamydia 11/14/2023 PCOS (polycystic [...] Recommended ACT -14 = 20 05-04-15: [facility] as [facility] 08-08- no prob since 03-27-16: [facility] 40[facility] As of [...] eval confirms dx of ADHD- accommodations in [employer], [employer]- full inclusion 03-07-15: normal [...] (Infanrix) 6wks to less than 7yo ,07/17/2000,1999,09/04,1999 WDkW-SDA-GUF (Pentacel) 2mo to less than 5yo 06/18/2000,1999,1999,06/01 H1N1 Inj Preservative Free 12/22/2009 HPV, Quadrivalent 04/30/2013,07/14/2012,04/14/20 12 Hepatitis B (Qxyupwn-W-Idzwr , Recombivax HB-Adult) 19yo and older 07/12/2020,02/09/2020,01/05/2020 [...] 04/27/2003,06/12/2000 Meningococcal MCV4P 08/08/2015,04/14/2012 PPD Test 11/10/2019 [employer] SARS-CoV-2 COVID-19, mRNA, LNP-S, preservative free 09/04/2021 [...] TUBES OTHER SURGICAL HISTORY age 1.5yr PROCEDURE: [place] BRONCHOSCOPY W/TRANSBRONCHIAL LUNG BX 1 LOBE EYE SURGERY PROCEDURE: HISTORICAL EYE SURGERY Medical History Medical History Date Comments Essential hypertension 08/31/2019 DX:Essent ial hypertension Migraine with aura DX:Migraine w ith aura; COMMENT: Naprosyn 04-14-12: worsening- started amitriptyline 25 mg hs Saw neurologist and is on topamax- now 100 mg 08-08-15: ped neuro- verapamil 40 mg bid in addition to [id number] mg hs; fioricet PRN, riboflavin, magnesium 10-10-15: [...] 3:15 PM EDT Office Visit Nephrology - [place] [address] [place] [address] Christopher Pollard MD [address] [place] [address] Health Maintenance Due Date Last [...] * Annual BMP Blood Test (01/22/2024) Pathologist [facility] Annual BMP Blood Test abstracted [facility] Provider HEALTH MAINTENANCE Final Result * Gonorrhea/Chlamydia Screening (11/13/2023) Pathologist [facility] Gonorrhea/Chla mydia Screening abstracted [facility] Provider HEALTH MAINTENANCE Final Result * Depression Screening (10/06/2023) Pathologist [facility] Depression Screening abstracted [facility] Provider HEALTH MAINTENANCE Final Result * Lipid panel (12/06/2022) [facility] LDL/HDL Ratio 2 0 - 4 Triglycerides 71 0 - 150 mg/dL Cholesterol 117 0 - 200 mg/dL HDL 48 >=40 mg/dL LDL Cholesterol 55 0 - 100 mg/dL Blood Venous blood specimen / Unknown us Historical Provider LAB BLOOD ORDERABLES [facility] Result * Pap smear (09/05/2022) 09/05/2022 Narrative HISTORICAL TESTING LAB RESULTING AGENCY - 09/12/2022 7:30 AM EDT [id number] THINPREP PAP, IMAGED: NEGATIVE FOR SQUAMOUS INTRAEPITHELIAL [...]
== END 2025-05-26 10:17 | disposition home or self-care (01) ==
LOC: HO.US 10:16
PROVIDERS: Visit Provider Surgery
DX: E66.01 Morbid (severe) obesity due to excess calories (principal); K21.9 Gastro-esophageal reflux disease without esophagitis
CPT/HCPCS: 76700; 76981

== ENCOUNTER → 2025-05-26 10:17 | Outpatient (BNV) | payer MEDICARE, SELFPAY | PROVIDERS: Visit Provider Radiology Diagnostic Radiology | DX: K76.0 Fatty (change of) liver, not elsewhere classified (principal) | CPT/HCPCS: 76700; 76981 ==

== ENCOUNTER 2025-06-07 09:09 | Outpatient (AMB) | payer MEDICARE, SELFPAY ==
--- NOTE | 2025-06-07 09:16 | A.OFFVIS_ITS ---
Vital Signs 06/07/25 09:17 Height 5 ft 3 in Weight 360 lb BMI 63.8 Intake Visit Reasons: EMB Results Allergies Penicillins Allergy (Intermediate, Verified 05/18/25 13:51) Hives Sulfa (Sulfonamide Antibiotics) Allergy (Intermediate, Verified 05/18/25 13:51) Hives doxycycline Allergy (Verified 05/18/25 13:51) Hives cephalexin (From Keflex) Adverse Reaction (Verified 05/18/25 13:51) Redness of Skin HPI Comments Details: Presenting post colpo for follow-up. The patient is doing well with no complaints. The pathology showed the following: A. Endocervix, curettage: Squamous epithelium within normal limits; no endocervical epithelium identified. B. Cervix, 1 o'clock, biopsy: - Inflamed squamous mucosa with reactive changes. - No endocervical epithelium identified. C. Cervix, 9 o'clock, biopsy: Inflamed squamous and endocervical mucosa with reactive changes. D. Cervix, 11 o'clock, biopsy: Inflamed squamous and endocervical mucosa with reactive changes. COMMENT: The findings are concordant with the patient's recent Pap/cytology specimen ([id number]; ASCUS with positive HR HPV) - slide reviewed [facility] Medical History Sleep apnea PCOS (polycystic ovarian syndrome) Migraines ADHD (attention deficit hyperactivity disorder) Depression GERD (gastroesophageal reflux disease) Morbid obesity Asthma High blood pressure Surgical History S/P tonsillectomy History of eye surgery Family History Maternal Grandmother Breast cancer Mother Diabetes Other HTN (hypertension) Social History Housing: Apartment Alcohol intake: current Alcohol intake frequency: holidays/special occasions on ly Patient Tobacco Use Status: Never used Tobacco e-Cigarette/Vaping Use: Never Used Second Hand Smoke Exposure: No service: No Current occupational status: employed Cognitive needs: No Hearing needs: No Vision needs: Yes (Glasses) Female Reproductive History Menstrual Age of Menarche: 11 Review of Systems Const All systems reviewed & are unremarkable except as noted in HPI and below Reports as per HPI and Reports no additional complaints GI Reports no additional complaints Reports no additional complaints Physical Exam Vital Signs: BMI result Body Mass Index 63.8 Assessment & Plan Assessment & Plan (1) ASCUS with positive high risk HPV cervical: Code(s): R87.610 - Atypical squamous cells of undetermined significance on cytologic smear of cervix (ASC-US); R87.810 - Cervical high risk human papillomavirus (HPV) DNA test positive Category: Medical Plan: Discussed with the patient the pathology results of the colposcopy biopsies & endocervical curettage . Discussed with the patient the sensitivity specificity, positive and negative predictive value in detecting cervical cancer in addition discussed the regression, persistence and progression rates. Recommended co-testing in 12 months, if cytology and or HPV are abnormal will proceed was colposcopy biopsy and endocervical curettage. Instructions given to the patient to schedule a co test appointment in 1 year. All questions answered the patient verbalized understanding. Coding Level of Care Code Est Pt Level 3 (68910) Diagnoses ASCUS with positive high risk HPV cervical R87.610; R87.810
[2025-06-07 09:17] VITALS: BMI 63.8
--- OUTSIDE RECORDS SUMMARY | 2025-06-07 09:33 | XMS_ITS | Clinical Summary ---
Author Organization [address] Address [address] [place] [phone] Phone Care Team Providers Care Short Story Writer Name Role Phone Unavailable Primary Care Provider Unavailabl e Allergies Active Allergy Reactions Criticality Noted Date Comments Cephalexin 10/23/2020 Burning sensation all over body. Doxycycline Hyclate 10/23/2020 hives Penaten 02/20/2023 Penicillin G Hives High 02/17/2023 Pt stated had bad reaction. She had hives all over the body. Sulfa (Sulfonamide Antibiotics) 03/06/2021 Medications cloNIDine ([id number] ) 0.3 mg/[address] 1 Patch onto the skin once a week. 4 Active emollient comb no.2, bulk, ointment Apply 0.5 g topically 2 times daily. 5% gabapentin ointment Sig: Apply 0.5 g daily to affected area Patient phone number: [phone] (home) 3 Active cholecalciferol (VITAMIN D-3) 1,250 [...] processing disorder 08/27/2024 Overview (08/27/2024): according to [facility] hearing report dated 01-15-13 Report from [...] obesity with BMI of 6 0.0-69.9, adult ([facility] V24, [facility] V28) 08/27/2024 Chlamydia 11/14/2023 PCOS [...] Recommended ACT -14 = 20 05-04-15: [facility] exacerbation as of 08-08- no prob since 03-27-16: [facility] 5 d pred 40mg As of [...] eval confirms dx of ADHD- accommodations in [employer]- full inclusion 03-07-15: normal [...] (Infanrix) 6wks to less than 7yo ,07/17/2000,1999,09/04,1999 MWxI-IIA-EEM (Pentacel) 2mo to less than 5yo 06/18/2000,1999,1999,06/01 H1N1 Inj Preservative Free 12/22/2009 HPV, Quadrivalent 04/30/2013,07/14/2012,04/14/20 12 Hepatitis B (Aphxbqd-W-Vpeqt , Recombivax HB-Adult) 19yo and older 07/12/2020,02/09/2020,01/05/2020 [...] 04/27/2003,06/12/2000 Meningococcal MCV4P 08/08/2015,04/14/2012 PPD Test 11/10/2019 [employer]Clip SARS-CoV-2 COVID-19, mRNA, LNP-S, preservative free 09/04/2021 [...] TUBES OTHER SURGICAL HISTORY age 1.5yr PROCEDURE: FL BRONCHOSCOPY W/TRANSBRONCHIAL LUNG BX 1 LOBE EYE SURGERY PROCEDURE: HISTORICAL EYE SURGERY Medical History Medical History Date Comments Essential hypertension 08/31/2019 DX:Essent ial hypertension Migraine with aura DX:Migraine w ith aura; COMMENT: Naprosyn 04-14-12: worsening- started amitriptyline 25 mg hs Saw neurologist and is on topamax- now 100 mg 08-08-15: ped neuro- verapamil 40 mg bid in addition to [id number] mg hs; fioricet PRN, riboflavin, magnesium 10-10-15: [...] 3:15 PM EDT Office Visit Nephrology - [place] [address] [place] [address] Christopher Pollard MD [address] [place] [address] Health Maintenance Due Date Last Done Comments Pneumococcal Vaccine: Pediatrics (0 to 5 Years) and At-Risk Patients (6 to 49 Years) (1 of 1 - PPSV23) 10/26/2019 08/31/2019, 04/14/2001, 07/17/2000 HIV Screening 11/02/2022 Hepatitis C Screening 11/02/2022 Social Influencers of Health Screening 11/02/2022 COVID-19 Vaccine ( season) 2024 09/04/2021, 01/29/2021, 01/08/2021 Depression Screening 10/06/2024 10/06/2023 Hypertension/CHF/CAD Annual BMP Blood Test 01/21/2025 01/22/2024 Influenza Vaccine (#1) 2025 , 09/04/2021, 08/26/2019, Additional history exists Cervical Cancer [...] * Annual BMP Blood Test (01/22/2024) Pathologist [facility] Annual BMP Blood Test abstracted [facility] Provider HEALTH MAINTENANCE Final Result * Gonorrhea/Chlamydia Screening (11/13/2023) Pathologist [facility] Gonorrhea/Chla mydia Screening abstracted [facility] Provider HEALTH MAINTENANCE Final Result * Depression Screening (10/06/2023) Pathologist [facility] Depression Screening abstracted [facility] Provider HEALTH MAINTENANCE Final Result * Lipid panel (12/06/2022) [facility] LDL/HDL Ratio 2 0 - 4 Triglycerides 71 0 - 150 mg/dL Cholesterol 117 0 - 200 mg/dL HDL 48 >=40 mg/dL LDL Cholesterol 55 0 - 100 mg/dL Blood Venous blood specimen / Unknown us Historical Provider LAB BLOOD ORDERABLES Praveena l Result * Pap smear (09/05/2022) 09/05/2022 Narrative HISTORICAL TESTING LAB RESULTING AGENCY - 09/12/2022 7:30 AM EDT [id number] THINPREP PAP, IMAGED: NEGATIVE FOR SQUAMOUS INTRAEPITHELIAL [...]
--- OUTSIDE RECORDS SUMMARY | 2025-06-07 09:33 | XMS_ITS | Patient Health Record ---
Author Organization [facility] Address [address] [place] [address] Support Name Relationship Address Phone Nena Zafar Guarantor Unknown [phone] Allergies Allergen (clinical drug ingredient) Drug/Non Drug [...] Status Risk Notes Problem Morbid obesity (disorder) (037085765) Morbid (severe) obesity due to excess calories (E66.01) Active confirmed Problem Generalized anxiety disorder (40007838) Generalized anxiety disorder (F41.1) Active confirmed Problem Migraine with aura (2043343) Migraine with aura, not intractable, without status migrainosus (G43.109) Active confirmed Problem Obstructive sleep apnea syndrome (disorder) (60725521) Obstructive sleep apnea (adult) (pediatric) (G47.33) Active confirmed Problem Essential hypertension (28209864) Essential (primary) hypertension (I10) Active confirmed Problem Mild intermittent asthma (964129678) Mild intermittent asthma, uncomplicated (J45.20) Active confirmed Problem Gastro-esophageal reflux disease without esophagitis (926924821) Gastro-esophageal reflux disease without esophagitis (K21.9) Active confirmed Problem Attention deficit hyperactivity disorder, predominantly inattentive type (disorder) (22830178) Attention and concentration deficit (R41.840) Active confirmed Plan Of Treatment No Information Insurance Providers Payer Name Payer Address Payer Phone Subscriber Number Group Number Insured Name Patient Relationship to Insured Coverage Start Date Coverage End Date [facility] [address] [place] [phone] [id number] Nena Ballard Self - patient is the insured Medical (General) History Medical History History ICD Code Generalized anxiety disorder/major depre ssive disorder, sees psychiatry ADD GERD Mild intermittent asthma Migraine headaches with aura Hypertension AIDAN cannot tolerate CPAP Surgical History Surgery Date(Month/Year) strabismus surgery
== END 2025-06-07 09:34 | disposition home or self-care (01) ==
LOC: HO.HWS 09:10
PROVIDERS: Visit Provider Obstetrics & Gynecology
DX: R87.610 Atypical squamous cells of undetermined significance on cytologic smear of cervix (ASC-US) (principal); R87.810 Cervical high risk human papillomavirus (HPV) DNA test positive
CPT/HCPCS: 99213

== ENCOUNTER → 2025-06-07 09:09 | Outpatient (BNVA) | payer MEDICARE, SELFPAY | PROVIDERS: Visit Provider Obstetrics & Gynecology | DX: R87.610 Atypical squamous cells of undetermined significance on cytologic smear of cervix (ASC-US) (principal); R87.810 Cervical high risk human papillomavirus (HPV) DNA test positive | CPT/HCPCS: 99212 ==

== ENCOUNTER 2025-06-09 15:09 | Outpatient (AMB) | payer MEDICARE, MEDICAID, SELFPAY ==
--- NOTE | 2025-06-09 15:10 | A.OFFPC_ITS ---
Vital Signs 06/09/25 15:12 Height 5 ft 3 in Weight 340 lb BMI 60.2 BP 128/86 Blood Pressure Location Lt brachial Position Sitting Pulse 78 Pulse Source Pulse Oximeter Pulse Oximetry (%) 98 Oxygen Delivery Method Room Air Intake Visit Reasons: Annual Exam - see comments Devops Architect Required: No Accompanied by: Self / Same As Patient Allergies Penicillins Allergy (Intermediate, Verified 06/09/25 15:19) Hives Sulfa (Sulfonamide Antibiotics) Allergy (Intermediate, Verified 06/09/25 15:19) Hives doxycycline Allergy (Verified 06/09/25 15:19) Hives cephalexin (From Keflex) Adverse Reaction (Verified 06/09/25 15:19) Redness of Skin Medication List - Last Reconciled 06/09/25 by Iraida Woodruff PA-C albuterol sulfate 90 mcg/actuation 1 inh inhalation QID PRN cholecalciferol (vitamin D3) 1,250 mcg PO QWEEK famotidine 20 mg PO DAILY levonorgestrel (Mirena) intrauterine lisinopril 5 mg PO DAILY metronidazole 500 mg PO BID 7 days sertraline 50 mg PO DAILY tirzepatide (weight loss) (Zepbound) 5 mg (0.5 mL) subcut QWEEK tirzepatide (weight loss) (Zepbound) 7.5 mg (0.5 mL) subcut QWEEK tirzepatide (weight loss) (Zepbound) 2.5 mg (0.5 mL) subcut QWEEK Tobacco use date assessed: 06/09/25 Dental Screening Dental Screen Date: 06/09/25 Did you have a dental visit in the last 12 months?: No Did you have a dental problem in the last 6 months where you did not have access to dental care?: No Was dental information given to patient?: No HPI Annual Exam - see comments HPI Details 25-year-old female with past medical his tory of anxiety, depression, asthma, hypertension, PCOS, ADHD, GERD, obstructive sleep apnea last seen 02/2025 coming in for annual exam. Presenting for an annual wellness visit. Uses albuterol as needed, no maintenance inhaler, symptoms controlled except during illness. Uses BiPAP nightly, still experiences fatigue, reports fast heart rate with BiPAP use. Experiences leg swelling when standing for long periods, does not use compressio n stockings regularly. Anxiety and depression Feels well-managed, not seeking further psychiatric services. Pap smears: Up-to-date with gynecology [facility] Medical History Sleep apnea PCOS (polycystic ovarian syndrome) Migraines ADHD (attention deficit hyperactivity disorder) Depression GERD (gastroesophageal reflux disease) Morbid obesity Asthma High blood pressure Surgical History S/P tonsillectomy History of eye surgery Family History Maternal Grandmother Breast cancer Mother Diabetes Other HTN (hypertension) Social History Housing: Apartment Alcohol intake: current Alcohol intake frequency: holidays/special occasions only Patient Tobacco Use Status: Never used Tobacco e-Cigarette/Vaping Use: Never Used Second Hand Smoke Exposure: No service: No Current occupational status: employed Cognitive needs: No Hearing needs: No Vision needs: Yes (Glasses) Female Reproductive History Menstrual Age of Menarche: 11 Questionnaire Thrive Questionnaire Date Thrive assessed: 06/09/25 I am a: Patient What is your living situation today?: I have a steady place to live Within the past 12 months, did the food you bought not last and you didn't have the money to get more?: I choose not to answer this question Within the past 12 months, did you worry whether your food would run out before you got money to buy more?: I choose not to answer this question Do you have trouble paying for medicines?: No Do you have trouble getting transportation to medical appointments?: No Do you have trouble paying your heating and electricity bill?: I choose not to answer this question Do you have trouble taking care of your child, family member or friend?: No Do you have trouble with day-to-day activities such as bathing, preparing meals, shopping, managing finances, etc.?: No Are you currently unemployed and looking for a job?: No Are you interested in more education?: I choose not to answer this question Please select the resources that you would like help with: None Currently or been in a relationship where the following occur: No concerns reported THRIVE Score: 0 CANDE-7 AMB Questionnaire CANDE-7 Date CANDE - 7 assessed: 06/09/25 Source: Developed by Drs. Hilario Kinney, Faye Azar, Yoseph Thibodeaux and colleagues, with an educational natasha from [employer]. Review of Systems Const Denies body aches, Denies chills, Denies fever(s), Reports headache(s) (improved) and Denies poor appetite Eyes Reports no additional complaints ENT Denies dysphagia, Denies dizziness, Reports headache(s) (improved) and Denies odynophagia Card Denies chest pain, Denies syncope, Denies edema, Denies irregular heart rhythm, Denies lightheadedness and Denies dyspnea Resp Denies cough and Denies dyspnea GI Denies abdominal pain, Denies constipation, Denies dysphagia, Denies diarrhea, Denies nausea, Denies odynophagia and Denies vomiting Reports no additional complaints Musc Reports no additional complaints and Denies abnormal gait Skin/Breast Reports system reviewed and no additional complaints, except as documented Neuro Denies abnormal gait, Denies dizziness, Denies syncope and Reports headache(s) (improved) Psych Reports no additional complaints Physical exam (Primary Care) Vital Signs: Last Vital Signs Pulse 78 06/09/25 15:12 BP 128/86 06/09/25 15:12 Pulse Ox 98 06/09/25 15:12 Oxygen Delivery Method Room Air 06/09/25 15:12 BMI result Body Mass Index 60.2 Tobacco/Smoking Status: Tobacco use Status Tobacco use date assessed 06/09/25 06/09/25 15:16 Patient Tobacco Use Status Never used Tobacco 06/09/25 15:16 e-Cigarette/Vaping Use Never Used 06/09/25 15:16 Thrive Assessment: Date of Thrive Assessment Date Thrive assessed 06/09/25 06/09/25 15:16 Currently or been in a relationship where the following occur: No concerns reported Const General: cooperative, healthy appearing, comfortable and no acute distress Orientation/consciousness: patient oriented x3 HENMT Head: Yes normocephalic Ears: hearing grossly normal bilaterally, external ears normal, TM's normal bilaterally and EAC's normal General nose exam: Normal external nose present Face and sinus: Yes normal facial exam and Yes sinuses nontender Mouth: Normal oral and palatal mucosa present and tongue normal Throat: Yes posterior oropharynx normal Eyes General: appearance normal, both eyes and all related structures Conjunctivae: conjunctivae normal Pupils: Equal, round and reactive pupils present EOM: EOMs intact bilaterally and No Nystagmus present Neck Neck: Yes normal visual inspection, Yes full ROM and Yes no lymphadenopathy Chest Chest palpation & inspection: normal inspection of the chest Resp Effort & Inspection: normal respiratory effort Auscultation: clear to auscultation bilaterally, no crackles, no rales, no rhonchi, no wheezes and breath sounds present Cardio Rate: regular rate Rhythm: regular rhythm Peripheral pulses: radial pulses present and dorsalis pedis present GI Inspection: Yes normal to inspection and No Abdominal wall edema Palpation (GI): Soft to palpation, not firm and nontender Auscultation: normal bowel sounds Rectal Exam - Female: deferred General: Yes no CVA tenderness Back/Spine/Pelvis Back: no CVA tenderness Skin General skin exam: no rashes or lesions noted Neuro General: patient oriented x3 Cranial nerves: Yes Equal, round and reactive pupils present, Yes Midline tongue present, Yes Ability to bilaterally elevate shoulders present and No Nystagmus present Gait exam (Neuro): Normal gait present Extrem General: Yes normal to inspection, Yes full ROM, No no pedal edema and No edema Psych Speech and movement: Normal speech and movement present Affect: normal affect Insight: Good insight present (Psych) Judgement: Good judgement present (Psych) Results AMB Urinalysis Dipstick UR Leukocytes Negative Last Edit by Rossana Husain MA on 06/09/25 16:27 UR Nitrite Negative Last Edit by Rossana Husain MA on 06/09/25 16:27 UR Urobilinogen 2 Last Edit by Rossana Husain MA on 06/09/25 16:27 UR Protein Negative Last Edit by Rossana Husain MA on 06/09/25 16:27 UR Ph 6.0 Last Edit by Rossana Husain MA on 06/09/25 16:27 UR Blood Negative Last Edit by Rossana Husain MA on 06/09/25 16:27 UR Specific [place] 1.015 Last Edit by Rossana Husain MA on 06/09/25 16:2 7 UR Ketone Negative Last Edit by Rossana Husain MA on 06/09/25 16:27 UR Bilirubin Negative Last Edit by Rossana Husain MA on 06/09/25 16:27 UR Glucose Negative Last Edit by Rossana Husain MA on 06/09/25 16:27 Results Reviewed Results Reviewed: Laboratory Last Values Urine pH (Clinic) 6.0 06/09/25 16:25 Specific [place] (Clinic) 1.015 06/09/25 16:25 Ur Protein (Clinic) Negative 06/09/25 16:25 Ur Ketones (Clinic) Negative 06/09/25 16:25 Urine Blood (Clinic) Negative 06/09/25 16:25 Urine Nitrite Negative 06/09/25 16:25 Urine Bilirubin (Clinic) Negative 06/09/25 16:25 Urobilinogen (Clinic) 2 06/09/25 16:25 Leukocyte Esterase (Clinic) Negative 06/09/25 16:25 Urine Glucose (Clinic) Negative 06/09/25 16:25 Coding Level of Care Code Est Pt Prev Care 18-39y(18092) Diagnoses Annual physical exam Z00.00 Anxiety F41.9 Depression F32.A ADHD F90.9 Morbid obesity with BMI of 50.0-59.9, adult E66.01; Z68.43 GERD (gastroesophageal reflux disease) K21.9 Intractable chronic migraine without aura and without status migrainosus G43.719 Intractability: intractable Migraine type: chronic migraine (15 or more days per month) without aura Status migrainosus presence: without status migrainosus Asthma J45.909 Obstructive sleep apnea G47.33 Primary hypertension I10 Hypertension type: primary hypertension Numbness and tingling in both hands R20.0; R20.2 Assessment & Plan Assessment & Plan (1) Annual physical exam: Code(s): Z00.00 - Encounter for general adult medical examination without abnormal findings Category: Medical Plan: Patient is up-to-date on all recommended routine screenings and vaccinations for her age. Blood work is up-to-date and has been reviewed with the patient today. Healthy diet and regular exercise is encouraged. (2) Anxiety: Code(s): F41.9 - Anxiety disorder, unspecified Category: Medical Plan: Feels her mental health is well managed at this time and is not looking for services or medication. Was referred to behavioral health by weight management prior to surgery. (3) Depression: Code(s): F32.A - Depression, unspecified Category: Medical Plan: see above (4) ADHD: Code(s): F90.9 - Attention-deficit hyperactivity disorder, unspecified type Category: Medical Plan: see above (5) Morbid obesity with BMI of 50.0-59.9, adult: Code(s): E66.01 - Morbid (severe) obesity due to excess calories; Z68.43 - Body mass index [BMI] 50.0-59.9, adult Category: Medical Plan: Healthy diet and regular exercise is encouraged. Currently working with weight management and consideration for sleeve. (6) GERD (gastroesophageal reflux disease): Code(s): K21.9 - Gastro-esophageal reflux disease without esophagitis Category: Medical Plan: Avoid trigger foods such as citrus, tomato products, soda, caffeine, spicy foods and other foods that may be irritating to your stomach. Avoid laying flat 3-4 hours after eating and elevate the head of the bed 30 degrees to prevent acid from moving into the esophagus. (7) Migraine: Comment: >15 headaches, which can evolve into migraines declines sumatriptan today. Code(s): G43.909 - Migraine, unspecified, not intractable, without status migrainosus Category: Medical Qualifiers: Intractability: intractable Migraine type: chronic migraine (15 or more days per month) without aura Status migrainosus presence: without status migrainosus Qualified Code(s): G43.719 - Chronic migraine without aura, intractable, without status migrainosus Plan: Currently working with Neurology for migraine and sleep apnea. Advised to keep a headache diary and bring to the next appointment. Headaches have been improving. (8) Asthma: Code(s): J45.909 - Unspecified asthma, uncomplicated Category: Medical Plan: Asthma currently controlled on present medications. Continue on albuterol as needed. Avoid triggers such as allergies. (9) Obstructive sleep apnea: Code(s): G47.33 - Obstructive sleep apnea (adult) (pediatric) Category: Medical Plan: Uses BiPAP faithfully at least 4 hours a night and benefits from this therapy. (10) High blood pressure: Code(s): I10 - Essential (primary) hypertension Category: Medical Qualifiers: Hypertension type: primary hypertension Qualified Code(s): I10 - Essential (primary) hypertension Plan: Continue on current blood pressure medication. Avoid salt intake and encourage healthy diet and regular exercise. (11) Numbness and tingling in both hands: Code(s): R20.0 - Anesthesia of skin; R20.2 - Paresthesia of skin Category: Medical Plan: Has been using the night splints without good relief plan to obtain EMG. Orders are placed today. Plan The patient will continue using albuterol as needed for asthma management, with no current need for a maintenance inhaler. For obstructive sleep apnea, the patient is advised to continue using the BiPAP machine nightly, despite experiencing fatigue and a fast heart rate, as it remains the primary treatment option. Peripheral edema management includes the recommendation to wear compression stockings during work hours and elevate legs when possible to prevent worsening of symptoms. The patient is advised to maintain a healthy diet and regular exercise to manage fatty liver disease and obesity, with ongoing consideration for bariatric surgery under the guidance of Dr. Cooper. Anxiety and depression are currently well-managed, and no further psychiatric intervention is required at this time. Preventative care measures include ensuring vaccinations are up to date and scheduling regular follow-ups to monitor overall health and any potential developments. This note was constructed using voice recognition software. While every effort has been made to ensure accuracy and imitation marble mechanic, still areas may have been included sometimes these areas may affect the content or meeting of the given symptoms. Total time spent caring for the patient today was 30 minutes. This includes time spent before the visit reviewing the chart, time spent during the visit, and time spent after the visit and documentation. Patient was informed and verbally consented to the use of an ambient scribe for clinic note documentation during this visit. Orders: Orders NE electromyogram (EMG) Today R20.0 - Anesthesia of skin, R20.2 - Paresthesia of skin AMB Urinalysis Dipstick Today Z13.9 - Encounter for screening, unspecified NE nerve conduction velocity Today R20.0 - Anesthesia of skin, R20.2 - Paresthesia of skin
[2025-06-09 15:12] VITALS: BP 128/86; PULSE 78; O2SAT 98; BMI 60.2
--- OUTSIDE RECORDS SUMMARY | 2025-06-09 15:53 | XMS_ITS | Patient Health Record ---
Author Organization [facility] Address [address] [place] [address] Support Name Relationship Address Phone Nena Zafar Guarantor Unknown [phone] Allergies Allergen (clinical drug ingredient) Drug/Non Drug [...] Status Risk Notes Problem Morbid obesity (disorder) (365772073) Morbid (severe) obesity due to excess calories (E66.01) Active confirmed Problem Generalized anxiety disorder (89002661) Generalized anxiety disorder (F41.1) Active confirmed Problem Migraine with aura (3421153) Migraine with aura, not intractable, without status migrainosus (G43.109) Active confirmed Problem Obstructive sleep apnea syndrome (disorder) (27275180) Obstructive sleep apnea (adult) (pediatric) (G47.33) Active confirmed Problem Essential hypertension (97905140) Essential (primary) hypertension (I10) Active confirmed Problem Mild intermittent asthma (451605561) Mild intermittent asthma, uncomplicated (J45.20) Active confirmed Problem Gastro-esophageal reflux disease without esophagitis (436830947) Gastro-esophageal reflux disease without esophagitis (K21.9) Active confirmed Problem Attention deficit hyperactivity disorder, predominantly inattentive type (disorder) (67348582) Attention and concentration deficit (R41.840) Active confirmed Plan Of Treatment No Information Insurance Providers Payer Name Payer Address Payer Phone Subscriber Number Group Number Insured Name Patient Relationship to Insured Coverage Start Date Coverage End Date [facility] [address] [place] [phone] [id number] Nena Ballard Self - patient is the insured Medical (General) History Medical History History ICD Code Generalized anxiety disorder/major depre ssive disorder, sees psychiatry ADD GERD Mild intermittent asthma Migraine headaches with aura Hypertension AIDAN cannot tolerate CPAP Surgical History Surgery Date(Month/Year) strabismus surgery
--- OUTSIDE RECORDS SUMMARY | 2025-06-09 15:53 | XMS_ITS | Clinical Summary ---
Author Organization [address] Address [address] [place] [phone] Phone Care Team Providers Care Gang Drill Operator Name Role Phone Unavailable Primary Care Provider Unavailabl e Allergies Active Allergy Reactions Criticality Noted Date Comments Cephalexin 10/23/2020 Burning sensation all over body. Doxycycline Hyclate 10/23/2020 hives Penaten 02/20/2023 Penicillin G Hives High 02/17/2023 Pt stated had bad reaction. She had hives all over the body. Sulfa (Sulfonamide Antibiotics) 03/06/2021 Medications cloNIDine (RBDDRIBO-FFQ-2 ) 0.3 mg/[address] 1 Patch onto the skin once a week. 4 Active emollient comb no.2, bulk, ointment Apply 0.5 g topically 2 times daily. 5% gabapentin ointment Sig: Apply 0.5 g daily to affected area Patient phone number: [phone] (home) 3 Active cholecalciferol (VITAMIN D-3) 1,250 [...] processing disorder 08/27/2024 Overview (08/27/2024): according to [employer] [facility] hearing report dated 01-15-13 Report from [...] obesity with BMI of 6 0.0-69.9, adult ([facility] V24, [facility] V28) 08/27/2024 Chlamydia 11/14/2023 PCOS (polycystic [...] Recommended ACT -14 = 20 05-04-15: [facility]ation as of 08-08- no prob since 03-27-16: [facility]- 5 d pred 40mg As of 11-08- [...] eval confirms dx of ADHD- accommodations in [employer]- full inclusion 03-07-15: normal [...] (Infanrix) 6wks to less than 7yo ,07/17/2000,1999,09/04,1999 EIeG-HBK-FLB (Pentacel) 2mo to less than 5yo 06/18/2000,1999,1999,06/01 H1N1 Inj Preservative Free 12/22/2009 HPV, Quadrivalent 04/30/2013,07/14/2012,04/14/20 12 Hepatitis B (Vdbigag-S-Ycaph , Recombivax HB-Adult) 19yo and older 07/12/2020,02/09/2020,01/05/2020 [...] 04/27/2003,06/12/2000 Meningococcal MCV4P 08/08/2015,04/14/2012 PPD Test 11/10/2019 SumUp SARS-CoV-2 COVID-19, mRNA, LNP-S, preservative free 09/04/2021 [...] TUBES OTHER SURGICAL HISTORY age 1.5yr PROCEDURE: [place] BRONCHOSCOPY W/TRANSBRONCHIAL LUNG BX 1 LOBE EYE SURGERY PROCEDURE: HISTORICAL EYE SURGERY Medical History Medical History Date Comments Essential hypertension 08/31/2019 DX:Essent ial hypertension Migraine with aura DX:Migraine w ith aura; COMMENT: Naprosyn 04-14-12: worsening- started amitriptyline 25 mg hs Saw neurologist and is on topamax- now 100 mg 08-08-15: ped neuro- verapamil 40 mg bid in addition to [id number] mg hs; fioricet PRN, riboflavin, magnesium 10-10-15: [...] 3:15 PM EDT Office Visit Nephrology - [facility] [address] [place] [address] Christopher Pollard MD [address] [place] [address] Health Maintenance Due Date Last [...] BMP Blood Test (01/22/2024) Pathologist [facility] Annual BMP Blood Test abstracted [facility] Provider HEALTH MAINTENANCE Final Result * Gonorrhea/Chlamydia Screening (11/13/2023) Pathologist [facility] Gonorrhea/Chla mydia Screening abstracted [facility] Provider HEALTH MAINTENANCE Final Result * Depression Screening (10/06/2023) Pathologist [facility] Depression Screening abstracted [facility] Provider HEALTH MAINTENANCE Final Result * Lipid panel (12/06/2022) [facility] LDL/HDL Ratio 2 0 - 4 Triglycerides 71 0 - 150 mg/dL Cholesterol 117 0 - 200 mg/dL HDL 48 >=40 mg/dL LDL Cholesterol 55 0 - 100 mg/dL Blood Venous blood specimen / Unknown us Historical Provider LAB BLOOD ORDERABLES Praveena l Result * Pap smear (09/05/2022) 09/05/2022 Narrative HISTORICAL TESTING LAB RESULTING AGENCY - 09/12/2022 7:30 AM EDT [id number] THINPREP PAP, IMAGED: NEGATIVE FOR SQUAMOUS INTRAEPITHELIAL [...]
== END 2025-06-09 15:49 | disposition home or self-care (01) ==
LOC: HO.HMCH 15:10
PROVIDERS: PCP Internal Medicine
DX: Z00.00 Encounter for general adult medical examination without abnormal findings (principal); E66.01 Morbid (severe) obesity due to excess calories; Z68.43 Body mass index [BMI] 50.0-59.9, adult; F41.9 Anxiety disorder, unspecified; F32.A Depression, unspecified; F90.9 Attention-deficit hyperactivity disorder, unspecified type; K21.9 Gastro-esophageal reflux disease without esophagitis; G43.719 Chronic migraine without aura, intractable, without status migrainosus; J45.909 Unspecified asthma, uncomplicated; I10 Essential (primary) hypertension; R20.0 Anesthesia of skin; Z13.9 Encounter for screening, unspecified

== ENCOUNTER → 2025-06-09 15:09 | Outpatient (BNVA) | payer MEDICARE, SELFPAY | PROVIDERS: PCP Internal Medicine | DX: Z00.00 Encounter for general adult medical examination without abnormal findings (principal); F41.9 Anxiety disorder, unspecified; F32.A Depression, unspecified; E66.01 Morbid (severe) obesity due to excess calories; Z68.43 Body mass index [BMI] 50.0-59.9, adult; K21.9 Gastro-esophageal reflux disease without esophagitis; G43.719 Chronic migraine without aura, intractable, without status migrainosus; J45.909 Unspecified asthma, uncomplicated; G47.33 Obstructive sleep apnea (adult) (pediatric); I10 Essential (primary) hypertension; R20.0 Anesthesia of skin; R20.2 Paresthesia of skin | CPT/HCPCS: 81002 ==

== ENCOUNTER 2025-06-29 08:22 | Outpatient (AMB) | payer MEDICARE, SELFPAY ==
--- OUTSIDE RECORDS SUMMARY | 2025-06-29 08:25 | XMS_ITS | Encounter Summary ---
Author Organization [facility] Address [address] [place] [address] Phone Care Team Providers Care Web Content Director Name Role Phone Darin Restrepo MD Primary Care Provider + Encounter Details Date Type Department Care Team (Late st Contact Info) Description 10/10/2022 Procedure Pass [facility], Ct Scan - [address] [address] Social History Tobacco Use Types Packs/Day Years Used Date Smoking Tobacco: Never Smokeless Tobacco: Never Alcohol Use Standard Drinks/Week Comments No 0 (1 standard drink = 0.6 oz pur e alcohol) Comments Unknown Sex and Gender Information Value Date Recorded Sex Assigned at Female 01/17/2020 8:42 PM EST Legal Sex Female 4:47 PM EDT Gender Identity Female 01/17/2020 8:42 PM EST Sexual Orientation Choose not to disclose 2017 9:38 AM EST documented as of this encounter Plan of Treatment Not on file documented as of this encounter Visit Diagnoses Not on filedocumented in this encounter Additional Health Concerns Infection Onset Date Last Indicated Resolved Time CoV-Risk 02/16/2023 02/16/2023 02/27/2023 1:22 AM EDT CoV-Risk 01/21/2024 01/21/2024 02/01/2024 1:22 AM EST documented as of this encounter Care Teams Web Content Director Relationship Specialty Start Date End Date Darin Restrepo MD [address] [place] [phone] PCP - General Internal Medicine 11/30/21 documented as of this encounter Additional Source Comments The information contained in this document represents components of the legal health record. It is not the complete legal health record.[facility]
--- OUTSIDE RECORDS SUMMARY | 2025-06-29 08:26 | XMS_ITS | Clinical Summary ---
Author Organization [address] Address [address] [place] [phone] Phone Care Team Providers Care Behavioral Health Care Coordinator Name Role Phone Unavailable Primary Care Provider Unavailabl e Allergies Active Allergy Reactions Criticality Noted Date Comments Cephalexin 10/23/2020 Burning sensation all over body. Doxycycline Hyclate 10/23/2020 hives Penaten 02/20/2023 Penicillin G Hives High 02/17/2023 Pt stated had bad reaction. She had hives all over the body. Sulfa (Sulfonamide Antibiotics) 03/06/2021 Medications cloNIDine (ZOGLLXEA-ICH-6 ) 0.3 mg/24 hr Place 1 Patch onto the skin once a week. 4 Active emollient comb no.2, bulk, ointment Apply 0.5 g topically 2 times daily. 5% gabapentin ointment Sig: Apply 0.5 g daily to affected area Patient phone number: [phone] (home) 3 Active cholecalciferol (VITAMIN D-3) 1,250 [...] processing disorder 08/27/2024 Overview (08/27/2024): according to [employer] [facility] hearing report dated 01-15-13 Report [...] obesity with BMI of 6 0.0-69.9, adult ([facility] V24, [facility] V28) 08/27/2024 Chlamydia 11/14/2023 PCOS (polycystic [...] Recommended ACT -14 = 20 05-04-15: [facility] 08-08- no prob since 03-27-16: [facility] As of [...] eval confirms dx of ADHD- accommodations in [employer]- full inclusion 03-07-15: normal [...] (Infanrix) 6wks to less than 7yo ,07/17/2000,1999,09/04,1999 NLeO-OEE-DSX (Pentacel) 2mo to less than 5yo 06/18/2000,1999,1999,06/01 H1N1 Inj Preservative Free 12/22/2009 HPV, Quadrivalent 04/30/2013,07/14/2012,04/14/20 12 Hepatitis B (Dbdypwo-P-Yhjyl , Recombivax HB-Adult) 19yo and older 07/12/2020,02/09/2020,01/05/2020 [...] 04/27/2003,06/12/2000 Meningococcal MCV4P 08/08/2015,04/14/2012 PPD Test 11/10/2019 Flatora SARS-CoV-2 COVID-19, mRNA, LNP-S, preservative free 09/04/2021 [...] TUBES OTHER SURGICAL HISTORY age 1.5yr PROCEDURE: [place] BRONCHOSCOPY W/TRANSBRONCHIAL LUNG BX 1 LOBE EYE [...] Care Team (Late st Contact Info) Description 01/11/2026 2:00 PM EST Office Visit Nephrology - [place] [address] [place] [address] Christopher Pollard MD [address] [place] [address] Health Maintenance Due Date Last Done Comments Pneumococcal Vaccine: Pediatrics (0 to 5 Years) and At-Risk Patients (6 to 49 Years) (1 of 1 - PPSV23) 10/26/2019 08/31/2019, 04/14/2001, 07/17/2000 HIV Screening 11/02/2022 Hepatitis C Screening 11/02/2022 Social Influencers of Health Screening 11/02/2022 COVID-19 Vaccine ( season) 2024 09/04/2021, 01/29/2021, 01/08/2021 Depression Screening 11/24/2024 10/06/2023 Hypertension/CHF/CAD Annual BMP Blood Test 01/21/2025 [...] * Annual BMP Blood Test (01/22/2024) Pathologist [facility] Annual BMP Blood Test abstracted [facility] Provider MD HEALTH MAINTENANCE Final Result * Gonorrhea/Chlamydia Screening (11/13/2023) Pathologist [facility] Gonorrhea/Chla mydia Screening abstracted [facility] Provider MD HEALTH MAINTENANCE Final Result * Depression Screening (10/06/2023) Pathologist [facility] Depression Screening abstracted [facility] Provider MD HEALTH MAINTENANCE Final Result * Lipid panel (12/06/2022) [facility] LDL/HDL Ratio 2 0 - 4 Triglycerides 71 0 - 150 mg/dL Cholesterol 117 0 - 200 mg/dL HDL 48 >=40 mg/dL LDL Cholesterol 55 0 - 100 mg/dL Blood Venous blood specimen / Unknown us Historical Provider LAB BLOOD ORDERABLES Praveena l Result * Pap smear (09/05/2022) 09/05/2022 Narrative HISTORICAL TESTING LAB RESULTING AGENCY - 09/12/2022 7:30 AM EDT [id number] THINPREP PAP, IMAGED: NEGATIVE FOR SQUAMOUS INTRAEPITHELIAL [...]
--- OUTSIDE RECORDS SUMMARY | 2025-06-29 08:26 | XMS_ITS | Patient Health Record ---
Author Organization [id number] Address [address] [place] [address] Support Name Relationship Address Phone Nena Zafar Guarantor Unknown [phone] Allergies Allergen (clinical drug ingredient) Drug/Non Drug [...] Status Risk Notes Problem Morbid obesity (disorder) (569935015) Morbid (severe) obesity due to excess calories (E66.01) Active confirmed Problem Generalized anxiety disorder (29183119) Generalized anxiety disorder (F41.1) Active confirmed Problem Migraine with aura (9723432) Migraine with aura, not intractable, without status migrainosus (G43.109) Active confirmed Problem Obstructive sleep apnea syndrome (disorder) (37868817) Obstructive sleep apnea (adult) (pediatric) (G47.33) Active confirmed Problem Essential hypertension (64718460) Essential (primary) hypertension (I10) Active confirmed Problem Mild intermittent asthma (077948190) Mild intermittent asthma, uncomplicated (J45.20) Active confirmed Problem Gastro-esophageal reflux disease without esophagitis (831091876) Gastro-esophageal reflux disease without esophagitis (K21.9) Active confirmed Problem Attention deficit hyperactivity disorder, predominantly inattentive type (disorder) (21289050) Attention and concentration deficit (R41.840) Active confirmed Plan Of Treatment No Information Insurance Providers Payer Name Payer Address Payer Phone Subscriber Number Group Number Insured Name Patient Relationship to Insured Coverage Start Date Coverage End Date [facility] [address] [place] [phone] [id number] Nena Ballard Self - patient is the insured Medical (General) History Medical History History ICD Code Generalized anxiety disorder/major depre ssive disorder, sees psychiatry ADD GERD Mild intermittent asthma Migraine headaches with aura Hypertension AIDAN cannot tolerate CPAP Surgical History Surgery Date(Month/Year) strabismus surgery
--- OUTSIDE RECORDS SUMMARY | 2025-06-29 08:26 | XMS_ITS ---
Author Name [facility] Organization Unknown Care Team Organization Name Specialty Phone Email Start Date End Da te [facility] Yeni Lynch Primary Care 10/01/2022 07/12/2024
--- NOTE | 2025-06-29 09:12 | A.OFFVIS_ITS ---
VS Expanded 06/29/25 09:21 Height 5 ft 3 in Weight 327 lb 8 oz BMI 58.0 Body Fat % 70 Body Fat Mass 229.4 Fat Free Mass 82 Visceral Fat Rating 30 Body Water % 17.2 Body Water Mass 56.3 Basal Metabolic Rate/Score 1,172 Intake Visit Reasons: TV Pre Op LSG 07/14/25 Allergies Penicillins Allergy (Intermediate, Verified 06/29/25 09:12) Hives Sulfa (Sulfonamide Antibiotics) Allergy (Intermediate, Verified 06/29/25 09:12) Hives doxycycline Allergy (Verified 06/29/25 09:12) Hives cephalexin (From Keflex) Adverse Reaction (Verified 06/29/25 09:12) Redness of Skin Medication List - Last Reconciled 06/29/25 by Cooper Rossi MD albuterol sulfate 90 mcg/actuation 1 inh inhalation QID PRN cholecalciferol (vitamin D3) 1,250 mcg PO QWEEK famotidine 20 mg PO DAILY levonorgestrel (Mirena) intrauterine lisinopril 5 mg PO DAILY ondansetron 4 mg PO Q12H pantoprazole 40 mg PO DAILY polyethylene glycol 3350 17 grams PO DAILY sertraline 50 mg PO DAILY sucralfate 10 mL PO BID tirzepatide (weight loss) (Zepbound) 7.5 mg (0.5 mL) subcut QWEEK HPI HPI TV Pre Op LSG 07/14/25: Details: Start time: 9.01am, End time: 9.31am ?I spent 25 minutes speaking with the patient on the phone plus an additional 5 minutes reviewing and updating records for a total of 30 minutes HPI Comments Details: Overall weight loss: 42.2lbs, or 11.4% TBWL Is doing 1.5 Fairlife shakes, Fit Crunch protein bars and one meal (13 forks of protein and 13 forks of salad) Exercise: walking outside [facility] Medical History Sleep apnea PCOS (polycystic ovarian syndrome) Migraines ADHD (attention deficit hyperactivity disorder) Depression GERD (gastroesophageal reflux disease) Morbid obesity Asthma High blood pressure Surgical History S/P tonsillectomy History of eye surgery Family History Maternal Grandmother Breast cancer Mother Diabetes Other HTN (hypertension) Social History Housing: Apartment Alcohol intake: current Alcohol intake frequency: holidays/special occasions only Patient Tobacco Use Status: Never used Tobacco e-Cigarette/Vaping Use: Never Used Second Hand Smoke Exposure: No service: No Current occupational status: employed Cognitive needs: No Hearing needs: No Vision needs: Yes (Glasses) Female Reproductive History Menstrual Age of Menarche: 11 Telehealth Telehealth Telehealth Platform: Telephone Location of provider rendering services: practice address Location of patient: address on file Patient Identification confirmed using: Name, : Yes Telehealth method: voice only Patient verbally consented to treatment: Yes Patient verbally consented to billing insurance company: Yes Patient informed of any privacy concerns related to visit: Yes Minutes spent on Phone/Video with Pt.: 30 Assessment & Plan Assessment & Plan (1) Morbid obesity with BMI of 50.0-59.9, adult: Code(s): E66.01 - Morbid (severe) obesity due to excess calories; Z68.43 - Body mass index [BMI] 50.0-59.9, adult Category: Medical Plan: -1-.- -P-l-a-n- -f-o-r- -l-a-p- -g-w-s-e-v-e- -e-i-j-j-s-w-c-t-o-m-y- -w-b-y-n-w-m-i-n-g- -u-p-p-e-r- -G-I- -p-l-c-p-p-t-o-p-y-.- -A-l-l- -t-e-s-t-s- -h-a-s- -b-e-e-n- -c-c-t-b-w-x-t-e-d- -a-n-d- -c-x-o-i-e-w-e-d- -a-n-d- -t-h-e- -n-s-z-i-e-n-t- -i-s- -n-a-o-a-r-e-d- -f-o-r- -t-h-e- -r-x-s-g-e-r-y--.- -?-I-f- -o-i-a-g-n-c-j-a-f-a-t-i-c- -o-r- -s-j-r-t-r-a-l- -k-z-a-n-i-a-s- -a-r-e- -s-h-q-s-e-n-t- -a-t- -t-i-m-e- -o-f- -f-a-t-g-e-r-y-,- -t-h-e-s-e- -w-i-l-l- -b-e- -m-j-g-a-i-r-e-d- -o-k-h-v-b-t-y-f-e-f-z-q-a-l-l-y- -a-s- -w-e-l-l-.- -R-i-s-k-s- -a-n-d- -v-o-b-d-c-l-s-n-e-i-o-n-s- -w-e-r-e- -c-g-f-d-v-u-s-e-d- -i-n- -w-l-l-a-i-l- -c-b-t-g-s-w-i-n-g- -d-r-u-s-i-b-l-e- -v-v-w-l-e-q-s-i-o-n- -t--o- -a-n- -o-p-e-n- -z-t-i-i-r-m-u-r-e-,- -w-r-b-s-k-k-m-o-t-i-c- -l-e-a-k-,- -c-y-i-e-d-i-n-g- -j-q-a-r-z-j-i-n-g- -w-c-u-m-i-f-u-s-i-o-n-,- -s-m-a-l-l- -b-o-w-e-l- -q-z-i-k-n-q-c-t-i-o-n-,- -d-e-a-t-h-,- -D-V-T- -a-n-d- -v-d-t-o-h-f-a-r-y- -p-x-s-o-l-i-s-m-,- -g-z-i-d-i-a-c-,- -o-r- -g-t-t-f-g-t-a-r-y- -b-x-j-m-p-x-c-l-e-i-o-n-s-,- -a-s- -l-o-n-g- -t-e-r-m- -r-x-k-s-d-z-l-u-t-i-o-n-s- -s-u-c-h- -a-s- -y-e-u-s-h-t-m-o-t-i-c- -u-l-c-e-r-,- -f-k-b-t-h-x-g-e-w-e-n-t- -f-o-y-g-h-t- -l-o-s-s- -a-n-d- -g-n-j-a-m-i-n- -x-n-x-b-y-k-b-k-x-i-e-s-.- -I- -u-r-e-f-m-e-i-z-e-d- -t-h-e- -j-o-a-j-d-w-a-n-c-e- -o-f- -c-l-o-s-e- -h-l-h-q-j-r----u-p-,- -j-f-d-r-w-s-n-c-e- -t-o- -q-l-s-v-f-n-t-k-h-o-n-s- -a-n-d- -g-o-o-d- -z-h-m-x-a-r-k-q-a-t-i-o-n-.- -S-o- -f-a-r- -s-h-e- -h-a-s- -b-g-z-v-e-n- -t-o- -b-e- -a--n- -d-x-n-s-q-p-e-n-t- -o-l-z-i-j-m-l-w-a-t-o-r- -a-n-d- -v-e-r-y- -j-r-i-u-r-q-a-n-t- -w-i-t-h- -a-l-l- -o-u-r- -r-u-y-u-b-i-i-o-n-s- -p-s-w-g-h-z-f-c-q-h-i-n-g- -a- -g-r-e-a-t- -i-k-d-g-h-t- -l-o-s-s-.- -I- -h-m-z-i-e-v-e- -t-h-a-t- -s-h-e- -i-s- -a-n- -v-g-f-v-v-c-e-n-t- -r-a-c-x-h-c-a-t-e- -a-n-d- -s-h-e- -i-s- -r-e-a-d-y-.- -2-.- -P-r-e-o-p- -u-z-z-a-l-d-h-s-z-i-o-n-s- -w-e-r-e- -u-x-i-v-i-d-e-d- -a-n-d- -k-r-g-r-g-l-n-e-d- -t-h-e- -d-k-i-p-o-s-e- -o-f- -e-a-c-h- -o-n-e-.- -N-e-e-d- -t-o- -b-e- -b-q-f-o-s-v-s-e-d- -p-r-e-o-p-.- -S-t-a-r-t- -X-l-b-i-n-f-v-u-x-o-l-e- -n-o-w- -a-s- -y-o-u- -g-e-t- -i-t- -f-r-o-m- -t-h-e- -h-d-f-r-m-a-c-y-,- -1- -p-i-l-l- -p-e-r- -d-a-y-.- -R-f-k-k-a-o-f-a-t-e- -a-n-d- -S-x-g-r-a-n- -a-r-e- -f-o-r- -a-f-t-e-r- -f-h-l-g-e-r-y- -a-s- -d-g-k-d-e-d-.- -3-.- -B-o-w-e-l- -p-r-e-p-:- -t-d-x-a-s-e- -d-o- -7- -v-g-q-k-e-t-s- -?-o-f- -H-m-q-a-l-a-x- -u-w-z-i-n-g- -e-a-c-h- -o-n-e- -w-i-t-h- -a- -a-n- -8-o-z- -g-l-a-s-s- -o-f- -w-a-t-e-r-,- -z-d-q-s-t-a-l- -l-i-g-h-t-,- -d-h-y-o-r-a-d-e- -z-e-r-o-,- -o-r- -r-z-c-p-e-l- -?-o-n- -8-/-1-9-/-2-5- -a-n-d- -t-h-e- -s-a-m-e- -w-q-l-u-n-t- -o-n- -8-/-2-0-/-2-5-.- -T-h-e- -P-o-i-a-l-a-x- -y--o-u- -b-e-g-i-n- -w-i-t-h- -o-n-e- -w-v-l-k-e-t- -a-t- -a- -t-i-m-e- -i-n- -8-o-z- -w-a-t-e-r- -o-r- -x-c-g-s-t-a-l- -l-i-g-h-t-,- -l-e-d-o-r-a-d-e- -z-e-r-o-,- -o-r- -u-b-s-p-e-l- -?-a-s- -e-a-r-l-y- -i-n- -t-h-e- -d-a-y- -a-s- -y-o-u- -c-a-n- -a-n-d- -y-o-u- -d-o- -t-h-e-m- -b-a-c-k- -t-o- -b-a-c-k- -u-n-t-i-l- -y-o-u- -m-r-l-i-s-h- -t-h-e-m-.- -W-x-w-t-i-n-u-e- -t-h-e- -l-w-w-t-e-i-n- -e-n-w-k--e-s- -u-y-r-i-n-g- -?-t-h-e- -b-o-w-e-l- -p-r-e-p-.- -4-.- -N-e-e-d-s- -t-o- -x-d-g-c-h-a-s-e- -1-o-z- -y-d-x-i-c-i-n-e- -c-u-p-s- -.- -5-.- -N-e-e-d-s- -t-o- -g-f-z-c-h-a-s-e- -D-q-q-l-d-r-e-n-'-s- -j-e-q-u-i-d- -C-o-o-e-n-o-l- -f-o-r- -u-s-k-t-o-p- -p-a-i-n- -u-z-b-t-r-o-l-.- -6-.- -S-h-e- -n-e-e-d-s- -t-o- -s-t-o-p- -t-h-e- -H-m-b-b-o-u-n-d- -a-t- -x-o-r-e-s-t- -o-n- -8-/-1-4-/-2-5- -(-l-a-s-t- -s-h-o-t- -n-o-t- -l-a-t-e-r- -t-h-a-n- -t-h-a-t- -d-a-y-)-.- -A-v-o-i-d- -t-z-b-i-r-i-n-,- -f-h-i-r-i-n-,- -A-d-v-i-l-,- -A-l-e-v-e-,- -K-d-d-v-d-f-c-a-m-,- -I-q-o-e-d-r-i-n-,- -F-n-d-t-y-u-f-e-n-,- -X-m-p-r-o-x-y-n-.- -L-t-d-e-n-o-l- -i-s- -O-K-.- -7-.- -S-h-e- -n-e-e-d-s- -t-o- -w-r-o-c-h-a-s-e- -t-h-e- -V-h-s-d-s-e-a-t-e- -g-y-u-h-u-w-w-w-u-m-i-n-s- -f-r-o-m- -t-h-e- -u-n-p-p-i--t-a-l-'-s- -g-i-f-t- -s-h-o-p-,- -j-y-d-w-a-b-l-e- -o-r- -p-i-l-l-s- -i-b-d-t-e-v-e-r- -y-o-u- -i-y-l-f-e-r-.- -8-.- -W-i-l-l- -d-o- -b-a-s-i-c- -p-r-e-o-p- -b-l-o-o-d- -i-s-t-k----u-p- -a-n-y- -d-a-y- -y-a-k-w-e-e-n- -B-n-p-d-a-y- -8-/-1-1-/-2-5- -a-n-d- -H-s-d-d-a-y- -8-/-1-5-/-2-5- -z-h-e-t-i-n-g- -f-o-r- -1-2- -h-o-u-r-s- -a-n-d- -i-s- -h-h-a-s-g-c-l-e-d- -t-o- -s-e-e- -t-h-e- -B-r-j-s-t-h-e- -s-l-e-m-b-b-i-s-t- -p-r-i-o-r- -t-o- -t-h-e- -d-a-y- -o-f- -o-i-k-g-e-r-y-.- -9-.- -B-u-y- -a- -b-o-d-g-e-d-n-a-r-y- -b-i-k-e- -t-o-d-a-y-.- -V-e-r-y- -h-y-j-b-y-x-a-n-t-.- -1-0-.- -G-y-n-m-p-m-a-n-c-e- -o-f- -u-b-o-q-h-g-n-c-e- -t-o- -f-j-i-t-o-p- -l-o-i-o-t-d-w----u-p- -a-n-d- -n-e-f-i-m-z-e-x-j-w-i-o-o-n-s- -w-a-s- -e-q-s-d-y-b-c-o-r-e-d- -a-n-d- -s-h-e- -s-j-q-b-o-o-t-a-n-d-s- -t-h-a-t-.- -1-1-.- -S-t-o-p- -f-o-o-d- -a-n-d- -b-a-r-s- -a-s- -o-f- -t-o-d-a-y- -8-/-6-/-2-5- -a-n-d- -u-h-r-t-i-n-u-e- -w-i-t-h- -3- -I-j-n-r-l-i-f-e- -g-i-a-t-e-i-n- -y-q-s-k-e-s- -(-8-o-z- -o-n-l-y- -p-e-r- -s-h-a-k-e- -a-n-d- -N-O-T- -t-h-e- -w-h-o-l-e- -k-e-o-t-l-e-)- -a-t- -0-o-q----9-a-m-,- -1-0-a-m--- -1-2-p-m-,- -5-d-t----3-p-m- -a-n-d- -t-w-o- -m-o-r-e- -C-c-x-r-f-l-i-e- -u-g-s-t-e-i-n- -q-i-s--k-e-s- -(-W-h-o-l-e- -s-e-m-t-l-e- -e-a-c-h-)- -a-t- -9-p-w----6-p-m- -8-t-j----9-p-m- -1-2-.- -N-o- -s-o-u-p-s-,- -i-b-v-t-h-s- -o-r- -V-8- -1-3-.- -T-h-e- -m-x-q-i-e-n-t-'-s-?-j-g-n-i-c-a-l-?-z-l-t-t-o-r-y- -h-a-s- -b-e-e-n- -l-l-t-i-e-w-e-d- -a-n-d- -t-h-e-y- -a-r-e- -o-w-f-u-f-r-e-r-e-d- -l-o-w- -r-i-s-k- -f-o-r- -p-o-s-t- -o-p- -D-V-T- -a-n-d- -h-d-d-r-x-p-o-r-e- -D-V-T- -k-h-c-k-q-c-l-a-x--i-s- -i-s- -n-o-t- -m-v-o-q-r-q-e-r-e-d- -r-r-q-s-s-h-a-r-y-.- -X-a-g-v-e-l- -a-f-t-e-r- -n-d-n-g-e-r-y- -w-a-s- -h-t-d-i-e-w-e-d-.- -T-h-e- -z-j-n-i-e-n-t- -h-a-s- -n-o-t- -y-w-c-g-h-e-s-e-d- -a-n-y- -g-o-i-v-e-l- -p-l-a-n-s- -b-a-w-i-n-g- -t-h-e- -f-i-r-s-t- -3-0- -d-a-y-s- -a-f-t-e-r- -c-g-j-g-e-r-y- -a-n-d- -t-h-e-y- -h-a-v-e- -b-e-e-n- -b-s-d-i-s-e-d- -t-h-a-t- -o-x-p-h-i-n- -t-h-e- -f-i-r-s--t- -3-0- -d-a-y-s- -a-f-t-e-r- -r-a-a-g-e-r-y- -a-n-y- -b-u-s-,- -p-l-a-n-e-,- -t-r-a-i-n- -o-r- -c-a-r- -a-k-w-v-e-l- -o-v-e-r- -2- -h-o-u-r-s- -i-n- -i-v-e-a-t-i-o-n- -i-s- -s-t-w-p-w-y-a-r-s-e-w-x-t-e-d- -d-u-e- -t-o- -t-h-e- -q-n-y-h-f-u-i-l-i-t-y- -o-f- -k-a-t-v-m-y-p-i-n-g- -b-l-o-o-d- -c-l-o-t-s- -f-r-o-m- -f-w-j-p-i-s-l-i-t-y-.- -A-n-y- -t-w-d-v-e-l-,- -n-e-e-d-s- -t-o- -y-d-x-l-u-d-e- -p--j-e-n-o-d-s- -o-f- -z-m-x-i-y-m-t-i-o-n- -o-f- -1-0- -u-c-n-u-t-e-s- -i-n- -q-m-m-a-t-i-o-n- -e-v-e-r-y- -2- -h-o-u-r-s-.-?- -V-k-b-i-e-n-t- -w-a-s- -j-b-y-w-f-t-c-t-e-d- -t-o- -h-v-l-c-u-s-s- -a-n-y- -p-l-a-n-s- -f-o-r- -t-k-w-v-e-l- -i-q-v-i-n-g- -t-h-i-s- -s-d-i-i-o-d- -w-i-t-h- -t-h-e-i-r- -f-x-r-f-o-l-r-i-c- -r-r-k-g-e-o-n-.-?- -1-4-.- -U-s-e- -y-o-u-r- -B-i-p-a-p- -d-a-i-l-y- -a-n-d- -b-r--i-n-g- -i-t- -t-o- -t-h-e- -t-n-o-p-i-t-a-l- -w-i-t-h- -y-o-u-r- -m-a-s-k- -A-s- -o-f- -q-z-c-o-r-r-o-w-,- -e-s-h-a-s-e- -c-h-e-c-k- -y-o-u-r- -b-l-o-o-d- -w-h-c-s-s-u-r-e- -d-a-i-l-y- -i-n- -t-h-e- -m-n-s-n-i-n-g-.- -I-f- -y-o-u-r- -b-l-o-o-d- -m-a-a-s-s-u-r-e- -i-s-:- -B-e-l-o-w- -12-0-/-7-0-:- -d-o- -n-o-t- -t-a-k-e- -t-h-e- -M-g-m-f-v-m-p-r-i-l- -2-1-/-71- -t-o- -3-5-/-8-5-:- -t-a--k-e- -H-A-L-F- -B-k-l-f-e-z-p-r-i-l- -O-v-e-r- -1-6-/-8-6-:- -t-a-k-e- -t-h-e- -w-h-o-l-e- -S-y-b-s-j-s-p-r-i-l- -15-.- -L-f-g-a-s-e- -t-a-k-e- -a-t- -t-h-e- -d-a-y- -o-f- -d-s-k-g-e-r-y- -t-h-e- -v-l-m-d-z-i-i-n-g- -j-g-f-r-d-u-t-i-o-n-s-:- -P-h-s-o-f-b-p-r-i-l- -i-f- -t-h-e- -b-l-o-o-d- -y-a-t-s-s-u-r-e- -t-h-a-t- -d-a-y- -i-s- -h-i-g-h- -t-e-u-u-g-h- -t-o- -s-q-a-t-i-f-y- -i-t- -b-a-s-e--d- -o-n- -t-h-e- -g-b-l-t-p-a-t-e-r-s- -a-t- -t-h-e- -y-n-g-v-i-o-u-s- -t-t-d-l-e-t- -p-o-i-n-t-.- -1-6-.- -S-t-o-p- -a-n-y- -b-i-r-t-h- -p-o-t-t-r-o-l- -p-i-l-l-s- -a-n-d- -d-o-n-'-t- -u-s-e- -t-h-e-m- -f-o-r- -o-n-e- -m-o-n-t-h- -a-f-t-e-r- -z-x-z-g-e-r-y- -1-7-.- -W-a-f-y-j-w-t-e-l-y- -n-o- -i-l-b-k-i-n-g- -o-r- -h-r-y-i-n-g-,- -o-r- -l-i-u-u-p-h-a-n-a- -u-n-t-i-l- -t-h-e- -f-g-k-g-e-r-y- -a-n-d- -f-o-r- -a-t- -l-e-a-s-t- -t-h-e- -f-i-r-s-t- -4- -w-e-e-k-s-.- -O-n-l-y- -u-a-f-o-t-i-n-e- -d-i-r-c-h-e-s- -a-r-e- -p-m-q-o-w-e-d-.- -1-8-.- -S-e-n-d- -m-e- -d-x-e-g-h-t- -x-c-m-c-k-o-b-p-w-n-t-s- -o-n- -F-l-x-s-d-a-y- -8-/-1-2-/-2-5- -a-n-d- -t-h-e-n- -o-n- -V-h-h-r-s-d-a-y- -8-/-2-1-/-2-5-,- -t-h-e- -d-a-y- -o-f- -o-u-l-g-e-r-y- -o-k-m-o-r-e- -y-o-u- -g-o- -t-o- -t-h-e- -e-a-u-p-i-t-a--l-.- -1-9-.- -A-v-o-i-d- -a-n-y- -b-m-m-r-o-i-d-s- -b-y- -m-o-u-t-h- -f-o-r- -a-n-y- -p-v-m-s-o-n-.- -L-e-t- -m-e- -k-n-o-w- -i-f- -n-l-l-e-o-n-e- -x-e-e-f-r-o-i-b-e-s- -t-h-e-m- -t-o- -y-o-u- -2-0-.- -T-h-e-s-e- -o-e-a-z-j-r-p-e-n-o-n-s- -b-y-t-i-i-k-e-d-e- -k-m-j-t-h-i-n-g- -e-l-s-e- -y-o-u- -r-e-a-d- -i-n- -t-h-e- -i-h-u-d-b-o-o-k-,- -a-g-r-t-h-i-n-g- -y-o-u- -w-a--t-c-h-e-d- -i-n- -d-d-f-e-o-s- -o-r- -p-e-o-s-s-e-s- -o-r- -y-o-u- -w-e-r-e- -t-o-l-d- -b-y- -a-n-y- -o-t-h-e-r- -h-f-s-v-i-d-e-r-.- -I-f- -t-h-e-r-e- -i-s- -a-n-y- -m-u-w-f-l-i-c-t-,- -y-o-u- -b-i-m-l-o-w- -t-h-e- -a-b-o-v-e- -s-r-p-z-n-m-e-c-f-o-n-s- -a-n-d- -g-t-r-h-i-n-g- -e-l-s-e-.- Orders: Orders Insulin Today E28.2 - Polycystic ovarian syndrome, E66.01 - Morbid (severe) obesity due to excess calories, Z68.43 - Body mass index [BMI] 50.0-59.9, adult Complete Blood Count Auto Diff Today E28.2 - Polycystic ovarian syndrome, E66.01 - Morbid (severe) obesity due to excess calories, Z68.43 - Body mass index [BMI] 50.0-59.9, adult Hemoglobin A1c Today E28.2 - Polycystic ovarian syndrome, E66.01 - Morbid (severe) obesity due to excess calories, Z68.43 - Body mass index [BMI] 50.0- 59.9, adult Type and Screen Today E28.2 - Polycystic ovarian syndrome, E66.01 - Morbid (severe) obesity due to excess calories, Z68.43 - Body mass index [BMI] 50.0- 59.9, adult Prothrombin Time INR Today E28.2 - Polycystic ovarian syndrome, E66.01 - Morbid (severe) obesity due to excess calories, Z68.43 - Body mass index [BMI] 50.0-59.9, adult C Reactive Protein Today E28.2 - Polycystic ovarian syndrome, E66.01 - Morbid (severe) obesity due to excess calories, Z68.43 - Body mass index [BMI] 50.0- 59.9, adult Lipid Panel Today E28.2 - Polycystic ovarian syndrome, E66.01 - Morbid (severe) obesity due to excess calories, Z68.43 - Body mass index [BMI] 50.0-59.9, adult Comprehensive Met. Panel Today E28.2 - Polycystic ovarian syndrome, E66.01 - Morbid (severe) obesity due to excess calories, Z68.43 - Body mass index [BMI] 50.0-59.9, adult Partial Thromboplastin Time Today E28.2 - Polycystic ovarian syndrome, E66.01 - Morbid (severe) obesity due to excess calories, Z68.43 - Body mass index [BMI] 50.0-59.9, adult TSH reflex Free T4 Today E28.2 - Polycystic ovarian syndrome, E66.01 - Morbid (severe) obesity due to excess calories, Z68.43 - Body mass index [BMI] 50.0- 59.9, adult Medications: New pantoprazole 40 mg PO DAILY 90 tabs 0RF K21.9 - Gastro-esophageal reflux disease without esophagitis sucralfate 10 mL PO BID 600 mL 2RF K21.9 - Gastro-esophageal reflux disease without esophagitis ondansetron Only take one every 12 hours as needed if you have nausea 4 mg PO Q12H 20 tabs 0RF nausea and vomiting R11.0 - Nausea polyethylene glycol 3350 Mix each measuring cup with 8oz of water, Crystal light, or Gatorade zero, or Propel and do 7 measuring cups on 07/12/25 and another 7 measuring cups on 07/13/25 17 grams PO DAILY 238 grams 0RF Z01.818 - Encounter for other preprocedural examination
--- NOTE | 2025-06-29 09:12 | MHC.OFFVISWM ---
VS Expanded 06/29/25 09:21 Height 5 ft 3 in Weight 327 lb 8 oz BMI 58.0 Body Fat % 70 Body Fat Mass 229.4 Fat Free Mass 82 Visceral Fat Rating 30 Body Water % 17.2 Body Water Mass 56.3 Basal Metabolic Rate/Score 1,172 Intake Visit Reasons: TV Pre Op LSG 07/14/25 Allergies Penicillins Allergy (Intermediate, Verified 06/29/25 09:12) Hives Sulfa (Sulfonamide Antibiotics) Allergy (Intermediate, Verified 06/29/25 09:12) Hives doxycycline Allergy (Verified 06/29/25 09:12) Hives cephalexin (From Keflex) Adverse Reaction (Verified 06/29/25 09:12) Redness of Skin Medication List - Last Reconciled 06/29/25 by Cooper Rossi MD albuterol sulfate 90 mcg/actuation 1 inh inhalation QID PRN cholecalciferol (vitamin D3) 1,250 mcg PO QWEEK famotidine 20 mg PO DAILY levonorgestrel (Mirena) intrauterine lisinopril 5 mg PO DAILY ondansetron 4 mg PO Q12H pantoprazole 40 mg PO DAILY polyethylene glycol 3350 17 grams PO DAILY sertraline 50 mg PO DAILY sucralfate 10 mL PO BID tirzepatide (weight loss) (Zepbound) 7.5 mg (0.5 mL) subcut QWEEK HPI HPI TV Pre Op LSG 07/14/25: Details: Start time: 9.01am, End time: 9.31am ?I spent 25 minutes speaking with the patient on the phone plus an additional 5 minutes reviewing and updating records for a total of 30 minutes HPI Comments Details: Overall weight loss: 42.2lbs, or 11.4% TBWL Is doing 1.5 Fairlife shakes, Fit Crunch protein bars and one meal (13 forks of protein and 13 forks of salad) Exercise: walking outside [facility] Medical History Sleep apnea PCOS (polycystic ovarian syndrome) Migraines ADHD (attention deficit hyperactivity disorder) Depression GERD (gastroesophageal reflux disease) Morbid obesity Asthma High blood pressure Surgical History S/P tonsillectomy History of eye surgery Family History Maternal Grandmother Breast cancer Mother Diabetes Other HTN (hypertension) Social History Housing: Apartment Alcohol intake: current Alcohol intake frequency: holidays/special occasions only Patient Tobacco Use Status: Never used Tobacco e-Cigarette/Vaping Use: Never Used Second Hand Smoke Exposure: No service: No Current occupational status: employed Cognitive needs: No Hearing needs: No Vision needs: Yes (Glasses) Female Reproductive History Menstrual Age of Menarche: 11 Telehealth Telehealth Telehealth Platform: Telephone Location of provider rendering services: practice address Location of patient: address on file Patient Identification confirmed using: Name, : Yes Telehealth method: voice only Patient verbally consented to treatment: Yes Patient verbally consented to billing insurance company: Yes Patient informed of any privacy concerns related to visit: Yes Minutes spent on Phone/Video with Pt.: 30 Assessment & Plan Assessment & Plan (1) Morbid obesity with BMI of 50.0-59.9, adult: Code(s): E66.01 - Morbid (severe) obesity due to excess calories; Z68.43 - Body mass index [BMI] 50.0-59.9, adult Category: Medical Plan: <del>1.</del> <del>Plan</del> <del>for</del> <del>lap</del> <del>sleeve</del> <del>gastrectomy</del> <del>including</del> <del>upper</del> <del>GI</del> <del>endoscopy.</del> <del>All</del> <del>tests</del> <del>has</del> <del>been</del> <del>completed</del> <del>and</del> <del>reviewed</del> <del>and</del> <del>the</del> <del>patient</del> <del>is</del> <del>cleared</del> <del>for</del> <del>the</del> <del>surgery.</del> <del>?If</del> <del>diaphragmatic</del> <del>or</del> <del>ventral</del> <del>hernias</del> <del>are</del> <del>present</del> <del>at</del> <del>time</del> <del>of</del> <del>surgery,</del> <del>these</del> <del>will</del> <del>be</del> <del>repaired</del> <del>laparoscopically</del> <del>as</del> <del>well.</del> <del>Risks</del> <del>and</del> <del>complications</del> <del>were</del> <del>discussed</del> <del>in</del> <del>detail</del> <del>including</del> <del>possible</del> <del>conversion</del> <del>to</del> <del>an</del> <del>open</del> <del>procedure,</del> <del>anastomotic</del> <del>leak,</del> <del>bleeding</del> <del>requiring</del> <del>transfusion,</del> <del>small</del> <del>bowel</del> <del>obstruction,</del> <del>,</del> <del>DVT</del> <del>and</del> <del>pulmonary</del> <del>embolism,</del> <del>cardiac,</del> <del>or</del> <del>pulmonary</del> <del>complications,</del> <del>as</del> <del>long</del> <del>term</del> <del>complications</del> <del>such</del> <del>as</del> <del>anastomotic</del> <del>ulcer,</del> <del>insufficient</del> <del>weight</del> <del>loss</del> <del>and</del> <del>vitamin</del> <del>deficiencies.</del> <del>I</del> <del>emphasized</del> <del>the</del> <del>importance</del> <del>of</del> <del>close</del> <del>follow-up,</del> <del>adherence</del> <del>to</del> <del>instructions</del> <del>and</del> <del>good</del> <del>communication.</del> <del>So</del> <del>far</del> <del>she</del> <del>has</del> <del>proven</del> <del>to</del> <del>be</del> <del>an</del> <del>excellent</del> <del>communicator</del> <del>and</del> <del>very</del> <del>compliant</del> <del>with</del> <del>all</del> <del>our</del> <del>directions</del> <del>accomplishing</del> <del>a</del> <del>great</del> <del>weight</del> <del>loss.</del> <del>I</del> <del>believe</del> <del>that</del> <del>she</del> <del>is</del> <del>an</del> <del>excellent</del> <del>candidate</del> <del>and</del> <del>she</del> <del>is</del> <del>ready.</del> <del>2.</del> <del>Preop</del> <del>prescriptions</del> <del>were</del> <del>provided</del> <del>and</del> <del>explained</del> <del>the</del> <del>purpose</del> <del>of</del> <del>each</del> <del>one.</del> <del>Need</del> <del>to</del> <del>be</del> <del>purchased</del> <del>preop.</del> <del>Start</del> <del>Pantoprazole</del> <del>now</del> <del>as</del> <del>you</del> <del>get</del> <del>it</del> <del>from</del> <del>the</del> <del>pharmacy,</del> <del>1</del> <del>pill</del> <del>per</del> <del>day.</del> <del>Sucralfate</del> <del>and</del> <del>Zofran</del> <del>are</del> <del>for</del> <del>after</del> <del>surgery</del> <del>as</del> <del>needed.</del> <del>3.</del> <del>Bowel</del> <del>prep:</del> <del>please</del> <del>do</del> <del>7</del> <del>packets</del> <del>?of</del> <del>Miralax</del> <del>mixing</del> <del>each</del> <del>one</del> <del>with</del> <del>a</del> <del>an</del> <del>8oz</del> <del>glass</del> <del>of</del> <del>water,</del> <del>crystal</del> <del>light,</del> <del>gatorade</del> <del>zero,</del> <del>or</del> <del>propel</del> <del>?on</del> <del>07/12/25</del> <del>and</del> <del>the</del> <del>same</del> <del>amount</del> <del>on</del> <del>07/13/25.</del> <del>The</del> <del>Miralax</del> <del>you</del> <del>begin</del> <del>with</del> <del>one</del> <del>packet</del> <del>at</del> <del>a</del> <del>time</del> <del>in</del> <del>8oz</del> <del>water</del> <del>or</del> <del>crystal</del> <del>light,</del> <del>gatorade</del> <del>zero,</del> <del>or</del> <del>propel</del> <del>?as</del> <del>early</del> <del>in</del> <del>the</del> <del>day</del> <del>as</del> <del>you</del> <del>can</del> <del>and</del> <del>you</del> <del>do</del> <del>them</del> <del>back</del> <del>to</del> <del>back</del> <del>until</del> <del>you</del> <del>finish</del> <del>them.</del> <del>Continue</del> <del>the</del> <del>protein</del> <del>shakes</del> <del>during</del> <del>?the</del> <del>bowel</del> <del>prep.</del> <del>4.</del> <del>Needs</del> <del>to</del> <del>purchase</del> <del>1oz</del> <del>medicine</del> <del>cups</del> <del>.</del> <del>5.</del> <del>Needs</del> <del>to</del> <del>purchase</del> <del>Children's</del> <del>liquid</del> <del>Tylenol</del> <del>for</del> <del>postop</del> <del>pain</del> <del>control.</del> <del>6.</del> <del>She</del> <del>needs</del> <del>to</del> <del>stop</del> <del>the</del> <del>Zepbound</del> <del>at</del> <del>latest</del> <del>on</del> <del>07/07/25</del> <del>(last</del> <del>shot</del> <del>not</del> <del>later</del> <del>than</del> <del>that</del> <del>day).</del> <del>Avoid</del> <del>aspirin,</del> <del>motrin,</del> <del>Advil,</del> <del>Aleve,</del> <del>Meloxicam,</del> <del>Excedrin,</del> <del>Ibuprofen,</del> <del>Naproxyn.</del> <del>Tylenol</del> <del>is</del> <del>OK.</del> <del>7.</del> <del>She</del> <del>needs</del> <del>to</del> <del>purchase</del> <del>the</del> <del>Celebrate</del> <del>multivitamins</del> <del>from</del> <del>the</del> <del>hospital's</del> <del>gift</del> <del>shop,</del> <del>chewable</del> <del>or</del> <del>pills</del> <del>whatever</del> <del>you</del> <del>prefer.</del> <del>8.</del> <del>Will</del> <del>do</del> <del>basic</del> <del>preop</del> <del>blood</del> <del>work-up</del> <del>any</del> <del>day</del> <del>between</del> <del>Friday</del> <del>07/04/25</del> <del>and</del> <del>Friday</del> <del>07/08/25</del> <del>fasting</del> <del>for</del> <del>12</del> <del>hours</del> <del>and</del> <del>is</del> <del>scheduled</del> <del>to</del> <del>see</del> <del>the</del> <del>Anesthesiologist</del> <del>prior</del> <del>to</del> <del>the</del> <del>day</del> <del>of</del> <del>surgery.</del> <del>9.</del> <del>Buy</del> <del>a</del> <del>stationary</del> <del>bike</del> <del>today.</del> <del>Very</del> <del>important.</del> <del>10.</del> <del>Importance</del> <del>of</del> <del>adherence</del> <del>to</del> <del>postop</del> <del>folllow-up</del> <del>and</del> <del>recommendations</del> <del>was</del> <del>underscored</del> <del>and</del> <del>she</del> <del>understands</del> <del>that.</del> <del>11.</del> <del>Stop</del> <del>food</del> <del>and</del> <del>bars</del> <del>as</del> <del>of</del> <del>today</del> <del>06/29/25</del> <del>and</del> <del>continue</del> <del>with</del> <del>3</del> <del>Fairlife</del> <del>protein</del> <del>shakes</del> <del>(8oz</del> <del>only</del> <del>per</del> <del>shake</del> <del>and</del> <del>NOT</del> <del>the</del> <del>whole</del> <del>bottle)</del> <del>at</del> <del>7am-9am,</del> <del>10am-12pm,</del> <del>1pm-3pm</del> <del>and</del> <del>two</del> <del>more</del> <del>Fairflie</del> <del>protein</del> <del>shakes</del> <del>(Whole</del> <del>bottle</del> <del>each)</del> <del>at</del> <del>4pm-6pm</del> <del>7pm-9pm</del> <del>12.</del> <del>No</del> <del>soups,</del> <del>broths</del> <del>or</del> <del>V8</del> <del>13.</del> <del>The</del> <del>patient's?medical?history</del> <del>has</del> <del>been</del> <del>reviewed</del> <del>and</del> <del>they</del> <del>are</del> <del>considered</del> <del>low</del> <del>risk</del> <del>for</del> <del>post</del> <del>op</del> <del>DVT</del> <del>and</del> <del>therefore</del> <del>DVT</del> <del>prophylaxis</del> <del>is</del> <del>not</del> <del>considered</del> <del>necessary.</del> <del>Travel</del> <del>after</del> <del>surgery</del> <del>was</del> <del>reviewed.</del> <del>The</del> <del>patient</del> <del>has</del> <del>not</del> <del>disclosed</del> <del>any</del> <del>travel</del> <del>plans</del> <del>during</del> <del>the</del> <del>first</del> <del>30</del> <del>days</del> <del>after</del> <del>surgery</del> <del>and</del> <del>they</del> <del>have</del> <del>been</del> <del>advised</del> <del>that</del> <del>within</del> <del>the</del> <del>first</del> <del>30</del> <del>days</del> <del>after</del> <del>surgery</del> <del>any</del> <del>bus,</del> <del>plane,</del> <del>train</del> <del>or</del> <del>car</del> <del>travel</del> <del>over</del> <del>2</del> <del>hours</del> <del>in</del> <del>duration</del> <del>is</del> <del>contraindicated</del> <del>due</del> <del>to</del> <del>the</del> <del>possibility</del> <del>of</del> <del>developing</del> <del>blood</del> <del>clots</del> <del>from</del> <del>immobility.</del> <del>Any</del> <del>travel,</del> <del>needs</del> <del>to</del> <del>include</del> <del>periods</del> <del>of</del> <del>ambulation</del> <del>of</del> <del>10</del> <del>minutes</del> <del>in</del> <del>duration</del> <del>every</del> <del>2</del> <del>hours.?</del> <del>Patient</del> <del>was</del> <del>instructed</del> <del>to</del> <del>discuss</del> <del>any</del> <del>plans</del> <del>for</del> <del>travel</del> <del>during</del> <del>this</del> <del>period</del> <del>with</del> <del>their</del> <del>bariatric</del> <del>surgeon.?</del> <del>14.</del> <del>Use</del> <del>your</del> <del>Bipap</del> <del>daily</del> <del>and</del> <del>bring</del> <del>it</del> <del>to</del> <del>the</del> <del>hospital</del> <del>with</del> <del>your</del> <del>mask</del> <del>As</del> <del>of</del> <del>tomorrow,</del> <del>please</del> <del>check</del> <del>your</del> <del>blood</del> <del>pressure</del> <del>daily</del> <del>in</del> <del>the</del> <del>morning.</del> <del>If</del> <del>your</del> <del>blood</del> <del>pressure</del> <del>is:</del> <del>Below</del> <del>120/70:</del> <del>do</del> <del>not</del> <del>take</del> <del>the</del> <del>Lisinopril</del> <del>121/71</del> <del>to</del> <del>135/85:</del> <del>take</del> <del>HALF</del> <del>Lisinopril</del> <del>Over</del> <del>136/86:</del> <del>take</del> <del>the</del> <del>whole</del> <del>Lisinopril</del> <del>15.</del> <del>Please</del> <del>take</del> <del>at</del> <del>the</del> <del>day</del> <del>of</del> <del>surgery</del> <del>the</del> <del>following</del> <del>medications:</del> <del>Lisinopril</del> <del>if</del> <del>the</del> <del>blood</del> <del>pressure</del> <del>that</del> <del>day</del> <del>is</del> <del>high</del> <del>enough</del> <del>to</del> <del>justify</del> <del>it</del> <del>based</del> <del>on</del> <del>the</del> <del>parameters</del> <del>at</del> <del>the</del> <del>previous</del> <del>bullet</del> <del>point.</del> <del>16.</del> <del>Stop</del> <del>any</del> <del></del> <del>control</del> <del>pills</del> <del>and</del> <del>don't</del> <del>use</del> <del>them</del> <del>for</del> <del>one</del> <del>month</del> <del>after</del> <del>surgery</del> <del>17.</del> <del>Absolutely</del> <del>no</del> <del>smoking</del> <del>or</del> <del>vaping,</del> <del>or</del> <del>marijuana</del> <del>until</del> <del>the</del> <del>surgery</del> <del>and</del> <del>for</del> <del>at</del> <del>least</del> <del>the</del> <del>first</del> <del>4</del> <del>weeks.</del> <del>Only</del> <del>nicotine</del> <del>patches</del> <del>are</del> <del>allowed.</del> <del>18.</del> <del>Send</del> <del>me</del> <del>weight</del> <del>measurements</del> <del>on</del> <del>Friday</del> <del>07/05/25</del> <del>and</del> <del>then</del> <del>on</del> <del></del> <del>07/14/25,</del> <del>the</del> <del>day</del> <del>of</del> <del>surgery</del> <del>before</del> <del>you</del> <del>go</del> <del>to</del> <del>the</del> <del>hospital.</del> <del>19.</del> <del>Avoid</del> <del>any</del> <del>steroids</del> <del>by</del> <del>mouth</del> <del>for</del> <del>any</del> <del>reason.</del> <del>Let</del> <del>me</del> <del>know</del> <del>if</del> <del>someone</del> <del>prescribes</del> <del>them</del> <del>to</del> <del>you</del> <del>20.</del> <del>These</del> <del>instructions</del> <del>supersede</del> <del>anything</del> <del>else</del> <del>you</del> <del>read</del> <del>in</del> <del>the</del> <del>handbook,</del> <del>anything</del> <del>you</del> <del>watched</del> <del>in</del> <del>videos</del> <del>or</del> <del>classes</del> <del>or</del> <del>you</del> <del>were</del> <del>told</del> <del>by</del> <del>any</del> <del>other</del> <del>provider.</del> <del>If</del> <del>there</del> <del>is</del> <del>any</del> <del>conflict,</del> <del>you</del> <del>follow</del> <del>the</del> <del>above</del> <del>instructions</del> <del>and</del> <del>nothing</del> <del>else.</del> Orders: Orders Insulin Today E28.2 - Polycystic ovarian syndrome, E66.01 - Morbid (severe) obesity due to excess calories, Z68.43 - Body mass index [BMI] 50.0-59.9, adult Complete Blood Count Auto Diff Today E28.2 - Polycystic ovarian syndrome, E66.01 - Morbid (severe) obesity due to excess calories, Z68.43 - Body mass index [BMI] 50.0-59.9, adult Hemoglobin A1c Today E28.2 - Polycystic ovarian syndrome, E66.01 - Morbid (severe) obesity due to excess calories, Z68.43 - Body mass index [BMI] 50.0-59.9, adult Type and Screen Today E28.2 - Polycystic ovarian syndrome, E66.01 - Morbid (severe) obesity due to excess calories, Z68.43 - Body mass index [BMI] 50.0-59.9, adult Prothrombin Time INR Today E28.2 - Polycystic ovarian syndrome, E66.01 - Morbid (severe) obesity due to excess calories, Z68.43 - Body mass index [BMI] 50.0-59.9, adult C Reactive Protein Today E28.2 - Polycystic ovarian syndrome, E66.01 - Morbid (severe) obesity due to excess calories, Z68.43 - Body mass index [BMI] 50.0-59.9, adult Lipid Panel Today E28.2 - Polycystic ovarian syndrome, E66.01 - Morbid (severe) obesity due to excess calories, Z68.43 - Body mass index [BMI] 50.0-59.9, adult Comprehensive Met. Panel Today E28.2 - Polycystic ovarian syndrome, E66.01 - Morbid (severe) obesity due to excess calories, Z68.43 - Body mass index [BMI] 50.0-59.9, adult Partial Thromboplastin Time Today E28.2 - Polycystic ovarian syndrome, E66.01 - Morbid (severe) obesity due to excess calories, Z68.43 - Body mass index [BMI] 50.0-59.9, adult TSH reflex Free T4 Today E28.2 - Polycystic ovarian syndrome, E66.01 - Morbid (severe) obesity due to excess calories, Z68.43 - Body mass index [BMI] 50.0-59.9, adult Medications: New pantoprazole 40 mg PO DAILY 90 tabs 0RF K21.9 - Gastro-esophageal reflux disease without esophagitis sucralfate 10 mL PO BID 600 mL 2RF K21.9 - Gastro-esophageal reflux disease without esophagitis ondansetron Only take one every 12 hours as needed if you have nausea 4 mg PO Q12H 20 tabs 0RF nausea and vomiting R11.0 - Nausea polyethylene glycol 3350 Mix each measuring cup with 8oz of water, Crystal light, or Gatorade zero, or Propel and do 7 measuring cups on 07/12/25 and another 7 measuring cups on 07/13/25 17 grams PO DAILY 238 grams 0RF Z01.818 - Encounter for other preprocedural examination
[2025-06-29 09:21] VITALS: BMI 58.0
== END 2025-06-29 09:32 | disposition home or self-care (01) ==
LOC: HO.HBS 08:22
PROVIDERS: Visit Provider Surgery
DX: E66.01 Morbid (severe) obesity due to excess calories (principal); Z68.43 Body mass index [BMI] 50.0-59.9, adult
CPT/HCPCS: 99214

== ENCOUNTER 2025-07-04 08:47 | Outpatient (REF) | payer MEDICARE, SELFPAY ==
--- NOTE | ~2025-07-04 | FL_ITS ---
EXAMINATION: XR FLUOROSCOPY UPPER GI WITH AIR CLINICAL INFORMATION: Morbid /severe obesity due to excess calories COMPARISON: None available. TECHNIQUE: Routine upper GI contrast study was performed. FINDINGS: Following oral administration of thick barium and effervescent granules there is normal propagation bolus from the oral cavity through the pharynx, esophagus into stomach without obstruction, narrowing or stricture. On placing patient prone and lying supine the course, caliber and peristalsis of the stomach, duodenal bulb is normal. The mucosal pattern of the stomach, duodenal bulb and the sweep is normal. Incidental finding of gastroesophageal reflux without hiatal hernia is noted. FLUOROSCOPY TIME: 1 minute 30 seconds DOSE AREA PRODUCT: 2381 uGy-m2 (microgray-meter squared) FL/FL upper GI w air IMPRESSION: Mild gastroesophageal reflux without hiatal hernia. Rest of the upper GI exam is unremarkable. Electronically signed by: Srinivasa Stephens MD 07/04/2025 03:50 PM EDT
[2025-07-04 09:19] LABS: MANUAL DIFF FLAG NO
[2025-07-04 09:37] LABS: Hematocrit 41.3 % (37.0-47.0); Hemoglobin 13.3 g/dl (12.0-16.0); Imm Gran Abs Auto 0.03 X10*3/uL (0.00-0.03); Imm Gran Pct Auto 0.5 % (0.0-0.4); Lymphocytes Absolute Auto 1.3 X10*3/uL (1.2-4.9); Mean Corpuscular HGB Conc 32.2 g/dl (31.0-35.0); Mean Corpuscular Hemoglobin 27.1 pg (27.0-33.0); Mean Corpuscular Volume 84.1 fL (80.0-98.0); NRBC Abs Auto 0.000 X10*3/uL (0.0-0.012); NRBC Pct Auto 0.0 /100WBC (0.0-0.2); Platelet Count 258 X10*3/uL (160-400); Red Blood Count 4.91 X10*6/uL (4.20-5.50); White Blood Count 5.5 X10*3/uL (4.8-10.8)
[2025-07-04 09:38] LABS: INTERNATIONAL NORM RATIO 1.2 (0.9-1.1); Prothrombin Time 13.7 SEC (10.9-12.4)
[2025-07-04 09:41] LABS: Partial Thromboplastin Time 30.5 SEC (26.7-34.1)
[2025-07-04 10:04] LABS: Hemoglobin A1C 111.3034 umol/L; Total Hemoglobin (HGBA1C) 3506.7366 umol/L
[2025-07-04 10:28] LABS: Alanine Aminotransferase 40 U/L (0-31); Albumin Level 4.3 g/dL (3.5-5.0); Alkaline Phosphatase 55 U/L (39-117); Anion Gap 13 (12-20); Aspartate Amino Transferase 35 U/L (5-31); Blood Urea Nitrogen 15 mg/dL (9-16); Calcium 9.2 mg/dL (8.4-10.2); Carbon Dioxide 25 mmol/L (22-29); Chloride 105 mmol/L (96-108); Cholesterol 113 mg/dL (<200); Estimated Glomerular Filt Rate > 60; HDL Cholesterol 30 mg/dL (>40); Potassium 4.6 mmol/L (3.3-5.1); Sodium 138 mmol/L (135-145); Total Protein 7.6 g/dL (6.5-8.0); Triglycerides 56 mg/dL (<150)
== END 2025-07-04 08:48 | disposition home or self-care (01) ==
LOC: HO.XRAY 08:47
PROVIDERS: Visit Provider Surgery
DX: E28.2 Polycystic ovarian syndrome (principal); K21.9 Gastro-esophageal reflux disease without esophagitis; E66.01 Morbid (severe) obesity due to excess calories; Z68.43 Body mass index [BMI] 50.0-59.9, adult; Z13.1 Encounter for screening for diabetes mellitus; Z51.81 Encounter for therapeutic drug level monitoring
CPT/HCPCS: 36415; 74246; 80053; 80061; 83036; 83525; 84443; 85025; 85610; 85730; 86140

== ENCOUNTER → 2025-07-04 09:18 | Outpatient (BNV) | payer MEDICARE, SELFPAY | PROVIDERS: Visit Provider Radiology Diagnostic Radiology | DX: K21.9 Gastro-esophageal reflux disease without esophagitis (principal); K44.9 Diaphragmatic hernia without obstruction or gangrene | CPT/HCPCS: 74246 ==

== ENCOUNTER 2025-07-14 06:06 | Inpatient (IN) | payer MEDICARE, SELFPAY ==
[2025-07-05 14:23] VITALS: BMI 56.7
--- NOTE | 2025-07-13 09:42 | HO.ANESPROP2 ---
Documented by User: Dee Cross NP 07/13/25 09:48 HPI - Anesthesia Eval Consult details Narrative: 25yo F for Gastrectomy Sleeve,EGD,possible Diaphragmatic Hernia,possible Ventral Hernia,possible Open BMI 56.7 Anesthesia Pre-Procedure Meds Is the patient on any of the following meds?: GLP1/DPP4 PMFSH Active Problems Active Problems: All Active Problems Annual physical exam (Acute) ASCUS with positive high risk HPV cervical (Acute) Presence of 52 mg levonorgestrel-releasing intrauterine device (IUD) (Acute) Well woman exam with routine gynecological exam (Acute) Numbness and tingling in both hands (Acute) Morbid obesity with BMI of 60.0-69.9, adult (Acute) Loud snoring (Acute) Fatigue due to sleep pattern disturbance (Acute) History of difficulty sleeping (Acute) Screening for cervical cancer (Acute) Obstructive sleep apnea (Acute) Polyuria (Acute) GERD (gastroesophageal reflux disease) (Acute) ADHD (Acute) PCOS (polycystic ovarian syndrome) (Acute) Migraine (Acute) Depression (Acute) Anxiety (Acute) Morbid obesity with BMI of 50.0-59.9, adult (Acute) Morbid obesity (Acute) High blood pressure (Acute) Asthma (Acute) Past Medical History Medical History Sleep apnea PCOS (polycystic ovarian syndrome) Migraines ADHD (attention deficit hyperactivity disorder) Depression GERD (gastroesophageal reflux disease) Morbid obesity Asthma High blood pressure Family History Family History Maternal Grandmother Breast cancer Mother Diabetes Other HTN (hypertension) Surgical History Surgical History S/P tonsillectomy History of eye surgery History of Problems with Anesthesia: No Social History Social History Household Members: None Housing: Apartment Are you a primary career development engineer to a significant other at home: No Do you presently have visiting nurse or other home services: No Alcohol intake: current Alcohol intake frequency: holidays/special occasions only Patient Tobacco Use Status: Never used Tobacco e-Cigarette/Vaping Use: Never Used Second Hand Smoke Exposure: No Use of substances other than those prescribed or required for medical reasons: No Have you been hit, kicked, punched, or otherwise hurt by someone within the past year? If so, by whom?: No Advance Directives: No Advance Directives Information Provided: Yes Advance Directives on File: No Patient : No FDLMP: 2022 : No Poor oral hygiene: No service: No Current occupational status: employed Cognitive needs: No Hearing needs: No Vision needs: Yes (Glasses) Meds Allergies Allergy/AdvReac Type Severity Reaction Status Date / Time cephalexin (From Keflex) Allergy Intermediate Redness of Verified 07/05/25 14:26 Skin doxycycline Allergy Intermediate Hives Verified 07/05/25 14:26 Penicillins Allergy Intermediate Hives, Verified 07/05/25 14:29 burning sensation Sulfa (Sulfonamide Allergy Intermediate Hives,palpa Verified 07/05/25 14:29 Antibiotics) tations Home Medications ?Medication ?Instructions ?Recorded ?Confirmed ?Last Taken ?Type levonorgestrel (Mirena) intrauterine 01/21/25 06/29/25 Unknown History tirzepatide (weight loss) 7.5 7.5 mg subcut .QWEDNESDAY 07/05/25 07/14/25 07/06/25 08:00 History mg/0.5 mL subcutaneous pen injector (Zepbound) cholecalciferol (vitamin D3) 1,250 1,250 mcg PO FR 07/14/25 07/14/25 06/30/25 08:00 History mcg (50,000 unit) capsule Exam Height,Weight and Vital Signs: Height 5 ft 3 in Weight 145.15 kg Pertinent Lab Results Pertinent Lab Results: Laboratory Tests 07/04/25 09:08 Blood Type O Positive Antibody Screen NEGATIVE Laboratory Tests 07/04/25 09:17 WBC 5.5 Hgb 13.3 Hct 41.3 Plt Count 258 Sodium 138 Potassium 4.6 Chloride 105 Carbon Dioxide 25 BUN 15 Creatinine 0.63 Laboratory Tests 07/04/25 09:17 PT 13.7 H INR 1.2 H APTT 30.5 Narrative Narrative: EKG 03/2025 Vent. Rate : 93 BPM Atrial Rate : 93 BPM P-R Int : 150 ms QRS Dur : 92 ms QT Int : 348 ms P-R-T Axes : 46 39 24 degrees QTcB Int : 432 ms Normal sinus rhythm Normal ECG When compared with ECG of 18-Mar-2021 03:01, No significant change was found Assessment and Plan Assessment Anesthesia Assessment: Chart Reviewed Final Anesthetic Review History of Problems with Anesthesia: No Documented by User: Thea Medina MD 07/14/25 07:31 [facility] Past Medical History Medical History Sleep apnea PCOS (polycystic ovarian syndrome) Migraines ADHD (attention deficit hyperactivity disorder) Depression GERD (gastroesophageal reflux disease) Morbid obesity Asthma High blood pressure Family History Family History Maternal Grandmother Breast cancer Mother Diabetes Other HTN (hypertension) Family history of problems with anesthesia: No Surgical History Surgical History S/P tonsillectomy History of eye surgery Social History Social History Household Members: None Housing: Apartment Are you a primary career development engineer to a significant other at home: No Do you presently have visiting nurse or other home services: No Alcohol intake: current Alcohol intake frequency: holidays/special occasions only Patient Tobacco Use Status: Never used Tobacco e-Cigarette/Vaping Use: Never Used Second Hand Smoke Exposure: No Use of substances other than those prescribed or required for medical reasons: No Have you been hit, kicked, punched, or otherwise hurt by someone within the past year? If so, by whom?: No Advance Directives: No Advance Directives Information Provided: Yes Advance Directives on File: No Patient : No FDLMP: 2022 : No Poor oral hygiene: No service: No Current occupational status: employed Cognitive needs: No Hearing needs: No Vision needs: Yes (Glasses) Meds Allergies Allergy/AdvReac Type Severity Reaction Status Date / Time cephalexin (From Keflex) Allergy Intermediate Redness of Verified 07/05/25 14:26 Skin doxycycline Allergy Intermediate Hives Verified 07/05/25 14:26 Penicillins Allergy Intermediate Hives, Verified 07/05/25 14:29 burning sensation Sulfa (Sulfonamide Allergy Intermediate Hives,palpa Verified 07/05/25 14:29 Antibiotics) tations Home Medications ?Medication ?Instructions ?Recorded ?Confirmed ?Last Taken ?Type levonorgestrel (Mirena) intrauterine 01/21/25 06/29/25 Unknown History tirzepatide (weight loss) 7.5 7.5 mg subcut .QWEDNES07/05/25 07/14/25 07/06/25 08:00 History mg/0.5 mL subcutaneous pen injector (Zepbound) cholecalciferol (vitamin D3) 1,250 1,250 mcg PO FR 07/14/25 07/14/25 06/30/25 08:00 History mcg (50,000 unit) capsule Exam Airway Mallampati Class: II TM Dist: <=3cm Neck ROM: Full Heart: rrr Lungs: cta Assessment and Plan Assessment Anesthesia Assessment: Anesthesia Plan Discussed Final Anesthetic Review Family History of Problems with Anesthesia: No NPO: Yes ASA Class: III Final Preanesthetic Review: No Changes in Pt Med Stat, Meds/Allgs Chart Reviewed, Consent Obtained/Reviewed and Anes Risks/Benef Reviewed Patient Risk: Intermediate Procedure Risk: Intermediate Anesthetic Plan Anesthetic Plan: GA and Agree w/ Assess. and Plan Disposition: Standard PACU
[2025-07-14] VITALS (12 sets, daily range): BP systolic 110–141; BP diastolic 63–92; PULSE 73–94; RESP 12–28; TEMP 36.2–36.9; O2SAT 96–100; BMI 54.6; BMI 58.2
[2025-07-14 06:28] LABS: UPreg QC Valid YES
[2025-07-14] MEDS: Lactated Ringers 1,000 ML 999 ML IV (06:30)
[2025-07-14] MEDS: Aprepitant 32 MG/4.4 ML VIAL IVPUSH (06:51)
--- OUTSIDE RECORDS SUMMARY | 2025-07-14 07:03 | XMS_ITS | Encounter Summary ---
Author Organization [facility] Address [address] [place] [address] Phone Care Team Providers Care Regional Sales Director Name Role Phone Darin Restrepo MD Primary Care Provider + Encounter Details Date Type Department Care Team (Late st Contact Info) Description 10/10/2022 Procedure Pass [facility], Ct Scan - [address] [address] Social History Tobacco Use Types Packs/Day Years [...] documented as of this encounter Care Teams Regional Sales Director Relationship Specialty Start Date End Date Darin Restrepo MD [address] [place] [id number] PCP - General Internal Medicine 11/30/21 documented as of this encounter Additional Source Comments The information contained in this document represents components of the legal health record. It is not the complete legal health record.[facility]
--- OUTSIDE RECORDS SUMMARY | 2025-07-14 07:04 | XMS_ITS | Clinical Summary ---
Author Organization [address] Address [address] [place] [phone] Phone Care Team Providers Care Music Library Assistant Name Role Phone Unavailable Primary Care Provider Unavailabl e Allergies Active Allergy Reactions Criticality Noted Date Comments Cephalexin 10/23/2020 Burning sensation all over body. Doxycycline Hyclate 10/23/2020 hives Penaten 02/20/2023 Penicillin G Hives High 02/17/2023 Pt stated had bad reaction. She had hives all over the body. Sulfa (Sulfonamide Antibiotics) 03/06/2021 Medications cloNIDine (YSOIYYGU-DJQ-0 ) 0.3 mg/[address] 1 Patch onto the skin once a week. 4 Active emollient comb no.2, bulk, ointment Apply 0.5 g topically 2 times daily. 5% gabapentin ointment Sig: Apply 0.5 g daily to affected area Patient phone number: [phone] (home) 3 Active cholecalciferol (VITAMIN D-3) 1,250 [...] processing disorder 08/27/2024 Overview (08/27/2024): according to [facility] hearing report dated 01-15-13 Report from [...] obesity with BMI of 6 0.0-69.9, adult ([facility] V24, [facility] V28) 08/27/2024 Chlamydia 11/14/2023 PCOS (polycystic ovarian [...] Recommended ACT -14 = 20 05-04-15: [facility] exacerbation as of 08-08- no prob since 03-27-16: [facility] 5 d pred 40mg As of [...] eval confirms dx of ADHD- accommodations in [employer], [employer], [employer]- full inclusion 03-07-15: normal [...] (Infanrix) 6wks to less than 7yo ,07/17/2000,1999,09/04,1999 YZcM-STZ-NPX (Pentacel) 2mo to less than 5yo 06/18/2000,1999,1999,06/01 H1N1 Inj Preservative Free 12/22/2009 HPV, Quadrivalent 04/30/2013,07/14/2012,04/14/20 12 Hepatitis B (Lwqlbca-U-Msysq , Recombivax HB-Adult) 19yo and older 07/12/2020,02/09/2020,01/05/2020 [...] 04/27/2003,06/12/2000 Meningococcal MCV4P 08/08/2015,04/14/2012 PPD Test 11/10/2019 [employer] SARS-CoV-2 COVID-19, mRNA, LNP-S, preservative free 09/04/2021 [...] verapamil 40 mg bid in addition to [id number] mg hs; fioricet PRN, riboflavin, magnesium 10-10-15: [...] 2:00 PM EST Office Visit Nephrology - [place] [address] [place] [address] Christopher Pollard MD [address] [place] [address] Health Maintenance Due Date Last [...] * Annual BMP Blood Test (01/22/2024) [facility]ologist [facility] Annual BMP Blood Test abstracted [facility] Provider MD HEALTH MAINTENANCE Final Result * Gonorrhea/Chlamydia Screening (11/13/2023) [facility]ologist [facility] Gonorrhea/Chla mydia Screening abstracted [facility] Provider MD HEALTH MAINTENANCE Final Result * Depression Screening (10/06/2023) Pathologist [facility] Depression Screening abstracted [facility] Provider MD HEALTH MAINTENANCE Final Result * Lipid panel (12/06/2022) [facility] LDL/HDL Ratio 2 0 - 4 Triglycerides 71 0 - 150 mg/dL Cholesterol 117 0 - 200 mg/dL HDL 48 >=40 mg/dL LDL Cholesterol 55 0 - 100 mg/dL Blood Venous blood specimen / Unknown us Historical Provider LAB BLOOD ORDERABLES Praveena l Result * Pap smear (09/05/2022) 09/05/2022 Narrative HISTORICAL TESTING LAB RESULTING AGENCY - 09/12/2022 7:30 AM EDT [id number] THINPREP PAP, IMAGED: NEGATIVE FOR SQUAMOUS INTRAEPITHELIAL [...]
--- OUTSIDE RECORDS SUMMARY | 2025-07-14 07:04 | XMS_ITS | Patient Health Record ---
Author Organization [facility] Address [address] [place] [address] Support Name Relationship Address Phone Nena Zafar Guarantor Unknown [phone] Allergies Allergen (clinical drug ingredient) Drug/Non Drug [...] Status Risk Notes Problem Morbid obesity (disorder) (946740089) Morbid (severe) obesity due to excess calories (E66.01) Active confirmed Problem Generalized anxiety disorder (99242061) Generalized anxiety disorder (F41.1) Active confirmed Problem Migraine with aura (2146899) Migraine with aura, not intractable, without status migrainosus (G43.109) Active confirmed Problem Obstructive sleep apnea syndrome (disorder) (17620647) Obstructive sleep apnea (adult) (pediatric) (G47.33) Active confirmed Problem Essential hypertension (65597824) Essential (primary) hypertension (I10) Active confirmed Problem Mild intermittent asthma (374624940) Mild intermittent asthma, uncomplicated (J45.20) Active confirmed Problem Gastro-esophageal reflux disease without esophagitis (758235718) Gastro-esophageal reflux disease without esophagitis (K21.9) Active confirmed Problem Attention deficit hyperactivity disorder, predominantly inattentive type (disorder) (49052362) Attention and concentration deficit (R41.840) Active confirmed Plan Of Treatment No Information Insurance Providers Payer Name Payer Address Payer Phone Subscriber Number Group Number Insured Name Patient Relationship to Insured Coverage Start Date Coverage End Date [facility] [address] [place] [phone] [id number] Nena Ballard Self - patient is the insured Medical (General) History Medical History History ICD Code Generalized anxiety disorder/major depre ssive disorder, sees psychiatry ADD GERD Mild intermittent asthma Migraine headaches with aura Hypertension AIDAN cannot tolerate CPAP Surgical History Surgery Date(Month/Year) strabismus surgery
--- NOTE | 2025-07-14 07:18 | PHA.MEDREC ---
Pharmacy Consult ? Medication Reconciliation Pharmacy has reviewed the medication reconciliation done by nursing.
[2025-07-14] MEDS: Lactated Ringers 1,000 ML 100 ML IVCONT ×3 (07:29→19:45)
--- NOTE | 2025-07-14 07:30 | P.HPSUR_ITS ---
Pre-Procedural Eval Section A - 24 Hr Update-Section A only Date of Service: 07/14/25 The patient is an INPATIENT: Yes The patient has been examined within 24 hours of the surgical procedure. The History & Physical has been completed within 30 days and I have reviewed it.: Yes Section B - Complete if H&P > 30 days Chief Complaint: Morbid Obesity Relevant Family History (Specify if Yes): No Relevant Social History: None Present Medications: None Medical History: No relevant PMH History of Previous Operations: No relevant previous surgery Allergies: Allergies Allergy/AdvReac Type Severity Reaction Status Date / Time cephalexin (From Keflex) Allergy Intermediate Redness of Verified 07/05/25 14:26 Skin doxycycline Allergy Intermediate Hives Verified 07/05/25 14:26 Penicillins Allergy Intermediate Hives, Verified 07/05/25 14:29 burning sensation Sulfa (Sulfonamide Allergy Intermediate Hives,palpa Verified 07/05/25 14:29 Antibiotics) tations Review of Systems Sugical H&P ROS: Negative: Constitution, Cardiovascular, Respiratory, Neurological, Psychiatric, Hem-Onc, Allergic/Immunologic, Gastrointestinal, Genitourinary, Musculoskeletal, Integumentary, Endocrine and Eyes/Ears /Nose/Throat Exam Surgical H&P Exam: Normal: HEENT, Normal: Heart, Normal: Lungs, Normal: Extremities, Normal: Abdomen, Normal: Skin and Normal: Neurological Plan Diagnosis/Plan: Unchanged I have reviewed the history and physical and performed a pertinent physical examination on my patient. No changes have occurred unless specified. Time Spent With Patient Time: Total time managing care of this patient today ____ minutes.
--- NOTE | 2025-07-14 07:31 | PM.OP ---
Brief Operative Note Date of Service: 07/14/25 Pre-op diagnosis: Morbid obesity with comorbidities (see below) Post-op diagnosis: same Procedure: INITIAL PATIENT BMI ON PRESENTATION AT OUR OFFICE: 65.5 kg/m2 LAST BMI BEFORE SURGERY: 56.8 kg/m2 COMORBIDITIES: sleep apnea on Bipap, gypertension, GERD, depression, anxiety, asthma, liver steatosis ?The patient presented to the Weight Management Program with significant obesity that was negatively impacting the patient's comorbidities as listed above.? The program is a phased program with a special focus on preoperative medical weight management to promote substantial weight loss and prepare the patients for the second phase of the program: bariatric surgery. The patient participated in an intensive weekly lifestyle ?intervention and exercise program during which the patient ?has lost between the initial office visit and the last preoperative visit 49.5 lbs, or 13.4% of initial actual body weight. It was deemed appropriate for the patient to now have bariatric surgery. In light of the current Covid-19 pandemic and the well documented strong association of obesity and increased risk of worse outcomes if infected with Covid-19 (REFERENCES:https://pubmed.ncbi.nlm.nih.gov/61007726/,?https://pubmed.ncbi.nlm.nih.gov/07854786/), any delay in undergoing bariatric surgery may lead to the patient's worsening health condition and increased?risk of more severe Covid-19 disease if infected. In addition a recent?study from [facility] published in [facility] Surgery on 11/19/2021 (file:///C:/[email or web address]_[email or web address].pdf) found that, among patients with obesity, substantial weight loss achieved with surgery was associated with improved outcomes of COVID-19 infection. The findings suggest that obesity can be a modifiable risk factor for the severity of COVID-19 infection. In addition, the patient met the BMI-criteria for bariatric surgery based on the BMI on initial presentation. The patient should not be penalized for achieving such weight loss because ?it is not sustainable long-term without surgical intervention and it was achieved in preparation for bariatric surgery ?under my direction and based on my published research ([email or web address]:/[email or web address]).pdf and?https://www.soard.org/article/A6801-4885(52)36530-X/pdf) ?that a 10% preoperative weight loss improves long-term weight loss after surgery and reduces perioperative complications.? Insurance carriers such as [facility] have endorsed my recommendations ?and have included in their policies criteria to include a 10% preoperative weight loss requirement. PROCEDURE: Esophago-gastroscopy, laparoscopic sleeve gastrectomy and laparoscopic gastropexy INDICATIONS: This is a 25 year-old female who was electively scheduled for laparoscopic, possibly open sleeve gastrectomy. The risks and complications of the procedure were discussed with the patient in advance, particularly the possibility of ; pulmonary embolism; staple line leak; bleeding; GERD; cardiac, pulmonary, or renal complications; as well as long-term problems such as insufficient weight loss, vitamin deficiency, strictures, or ulcers. The patient understood all the risks, and was in agreement to proceed with surgery. DESCRIPTION OF PROCEDURE: After informed consent was obtained from the patient, the patient was given preoperative antibiotics, and was transferred to the operating room. After successful induction of general anesthesia, pneumatic compression devices were placed on both lower extremities. An upper endoscopy was performed next. The oropharynx and esophagus appeared to be within normal limits. There was no diaphragmatic hernia present. The stomach was entered. Then after all fluid and air were suctioned and the stomach was fully decompressed, the scope was withdrawn and secured in the mid esophagus. The patient was then prepped and draped in the usual sterile manner, and abdominal access was established at the right upper quadrant with the Yves technique. A 12 mm blunt port was inserted, and the abdomen was insufflated with CO2 to a pressure of 15 mmHg. Under direct visualization, additional ports were placed, specifically two 5 mm Versi-step ports to the left upper quadrant, and a 5 mm Versi-Step port to the right upper quadrant. 1% lidocaine plain was used to infiltrate all port sites as well as all fascia defects. Following that, the patient was placed in a steep reverse Trendelenburg position. An additional 5 mm port was placed to the right flank for the Mediflex retractor that was used to retract the left lobe of the liver. The gastro-esophageal fat pad was opened with the ultrasonic device (Thunderbeat, Olympus) and the anterior esophagus and hiatus were exposed. The angle of His was opened with the ultrasonic device the fundus of the stomach from any diaphragmatic and splenic attachments. I then opened the gastrocolic ligament between the transverse colon and the greater curvature of the stomach with the ultrasonic device to enter the lesser sac and facilitate the ligation of the short gastric vessels. I started at a mid-point along the greater curvature and using the Thunderbeat, all short gastric vessels were divided all the way to the angle of His until the left monse was completely dissected at its entirety. I then divided the gastro-colic ligament distally to a distance of about 3-4 cm proximal to the pylorus. The stomach was then divided transversely with one Endo KTAE-45 purple and four KATE-60 articulating purple loads using the LiveOps stapler and loads. Every effort was made that the gastric sleeve had a tubular shape and an even caliber throughout. Once the sleeve resection was completed, the staple line of the gastric sleeve was reinforced with Hemoclips. The resected stomach was retrieved without difficulty from the Yves port. A gastropexy was then performed in order to prevent postoperative GERD and partial gastric volvulus. Several interrupted 2.0 Surgidac sutures were placed between the sleeve's staple line and the previously divided greater omentum and gastro-colic ligament using the Endo-Stitch device. ?An upper endoscopy was performed. There was no narrowing at the GE junction. The scope was easily advanced all the way to the pylorus which was clearly visualized. There was no narrowing anywhere and the sleeve's caliber was even throughout. The sleeve's staple line was inspected and there was no evidence of ischemia, bleeding or dehiscence. At that point the gastroscope was withdrawn from the patient?s mouth while we were decompressing the bowel and the stomach from any remaining air. I looked into the lesser sac to see how the sleeve was situating and it was situating well. There was no bleeding from the staple line, spleen, or short gastric vessels. The Mediflex retractor was removed, and the undersurface of the liver was inspected and there was no bleeding. The patient was placed in supine position. I closed the fascial defect of the 12 mm port site with a figure of eight #1 Polysorb suture. Then 30cc Ropivacaine plain with 10 mg of Dexamethasone were used to infiltrate the fascial closure as well as all skin incisions. At this point, the abdomen was deflated, all ports were removed under direct vision, and no bleeding was noted from any of the port sites. The skin incisions were irrigated with saline and were closed with 4-0 absorbable monofilament sutures. Steri-Strips and OpSites were used to cover all incisions. The patient was extubated and was transferred in stable condition to the recovery room for further care. I was present and performed all salas parts of the procedure. Ms. Castillomaddie was the nursing assistant. There were no residents to assist with this case. Agustín Rossi MD, PhD, FACS Surgeon: Cooper Rossi MD Anesthesia: local and other (TAP block) Was an Comber Setter used for this Procedure?: No Comber Setter: Adelina Ordonez Estimated blood loss (mL): 10 IV fluids (mL): 2,500 Urine output (mL): 0 (No Rivera to record output) Pathology: other (1) Stomach, 2) gastro-esophageal fat pad) Condition: stable Disposition: PACU
--- NOTE | 2025-07-14 07:33 | PM.PNGS ---
Subjective Subjective Date of Service: 07/15/25 Interval history: Feels well. Mild incisional pain. She is tolerating phase 1 bariatric diet Physical Exam Vital Signs: Vital Signs: Last Vital Signs Temp 97.6 F 07/14/25 06:28 Pulse 94 07/14/25 06:28 Resp 18 07/14/25 06:28 BP 110/78 07/14/25 06:28 Pulse Ox 96 07/14/25 06:28 O2 Del Method Room Air 07/14/25 06:28 BMI result Body Mass Index 54.6 GI: Inspection: Yes normal to inspection, Yes incision (clean, dry and intact) and Yes obesity Palpation (GI): Soft to palpation Extrem: Right lower extremity: normal to inspection (no calf tenderness) Left lower extremity: normal to inspection (no calf tenderness) Objective Data Active Medications Albuterol Sulfate (Albuterol Sulfate (0.083%) 2.5 Mg/3 Ml Vial.Neb) 2.5 mg INHALE ONCE PRN PRN Reason: Shortness of Breath/Wheezing Hydromorphone HCl (Hydromorphone Hcl 0.5 Mg/0.5 Ml Syringe) 0.25 mg IVPUSH Q5M PRN PRN Reason: Pain, Moderate to Severe (Pain Scale 4-10) Stop: 07/14/25 13:31 Lactated Ringer's (Lr) 1,000 mls @ 100 mls/hr IVCONT .Q10H [facility] Stop: 07/14/25 10:14 Last Admin: 07/14/25 07:29 Dose: 100 mls/hr Documented By: MERYL Lactated Ringer's (Lr) 1,000 mls @ 999 mls/hr IV .Q1H1M [facility] Stop: 07/14/25 08:15 Last Infusion: 07/14/25 07:29 Dose: Infused Documented By: MERYL Naloxone HCl (Naloxone Hcl 0.4 Mg/Ml Vial) 0.04 mg IVPUSH Q5M PRN PRN Reason: Excessive sedation or RR < 8 Ondansetron HCl (Ondansetron Hcl 4 Mg/2 Ml Vial) 4 mg IVPUSH ONCE PRN PRN Reason: Nausea and Vomiting Stop: 07/14/25 13:31 Labs 07/15/25 06:41 07/15/25 06:41 Labs: Laboratory Results - last 24 hr 08/21/25 06:15 Urine Test NEGATIVE Procedures Date of Service Date of Service: 07/15/25 Progress Note: A&P Assessment and plan (1) Morbid obesity: Status: Acute Assessment and Plan: s/p laparoscopic sleeve gastrectomy and gastropexy Doing well Will check am labs and if OK the patient will be discharged home (2) GERD (gastroesophageal reflux disease): Status: Acute (3) PCOS (polycystic ovarian syndrome): Status: Acute (4) ADHD: Status: Acute (5) Depression: Status: Acute (6) Anxiety: Status: Acute (7) High blood pressure: Status: Acute (8) Sleep apnea treated with nocturnal bilevel positive airway pressure (BPAP): Status: Acute (9) Steatosis, liver: Status: Acute (10) S/P laparoscopic sleeve gastrectomy: Status: Acute (11) Hepatomegaly: Status: Acute Time Spent With Patient Time: Total time managing care of this patient today ____ minutes. Quality Stroke Does the patient have a stroke diagnosis?: No VTE Prior VTE?: No VTE Risk Level:: Surgical - moderate VTE Device Contraindication: N/A - Device Ordered VTE Drug Contraindication: N/A - Med Ordered
--- NOTE | 2025-07-14 10:48 | P.DS_ITS ---
DS: Providers Provider Date of admission: 07/14/25 06:06 Primary care physician: Iraida Woodruff PA-C DS: Diagnosis Discharge Diagnosis (1) Morbid obesity: Status: Acute (2) GERD (gastroesophageal reflux disease): Status: Acute (3) PCOS (polycystic ovarian syndrome): Status: Acute (4) ADHD: Status: Acute (5) Depression: Status: Acute (6) Anxiety: Status: Acute (7) High blood pressure: Status: Acute (8) Sleep apnea treated with nocturnal bilevel positive airway pressure (BPAP): Status: Acute (9) Steatosis, liver: Status: Acute (10) S/P laparoscopic sleeve gastrectomy: Status: Acute (11) Hepatomegaly: Status: Acute DS: Summary Hospital Course Hospital Course: ADMITTING DIAGNOSIS: morbid obesity, hepatomegaly, liver steatosis, AIDAN on BiPAP, GERD, PCOS, ADHD, migraine, depression, anxiety, HTN, asthma DISCHARGE DIAGNOSIS: same, s/p laparoscopic sleeve gastrectomy and gastropexy PAST SURGICAL HISTORY:? S/P tonsillectomy History of eye surgery PROCEDURE: upper endoscopy, laparoscopic sleeve gastrectomy and gastropexy DISCHARGE SUMMARY: History of Present Illness: The patient is a?25 year-old woman with a BMI of?54.6 kg/m2 and associated co- morbidities as described above. The patient had extensive work-up, lost?41.6 lbs preoperatively and was electively scheduled for laparoscopic, possible open sleeve gastrectomy and gastropexy. Risks and complications of the surgery were discussed with the patient in advance, particularly the possibility of , pulmonary embolism, anastomotic leak, bleeding, bowel injury, GERD, cardiac, renal or pulmonary complications. The patient understood all the risks and was in agreement with the surgical plan. Hospital Course: The patient underwent an uneventful laparoscopic sleeve gastrectomy with gastropexy on the day of admission. Postoperatively, the patient was transferred to the surgical floor. The patient received IV acetaminophen and IV Dilaudid for pain control. Patient was started on bariatric phase 1 diet POD #0. On postoperative day one, the patient was feeling well without nausea, vomiting, fevers, or tachycardia. The patient had some mild incisional pain and the abdomen was soft.? ? On the morning of postoperative day one, the patient was continued on 1 ounce of water or ice every half hour. During the day, the patient did fairly well, having some incisional pain, but able to ambulate adequately and to tolerate liquids well. Since the patient is doing well, we decided that the patient was ready to be discharged. The patient was given instructions to follow-up in office next week and to call the office for any fever over 101, persistent abdominal pain, nausea, vomiting, GERD, symptoms of DVT such as calf tenderness, or leg swelling, or pulmonary embolism such as chest pain or shortness of breath.? The patient was also instructed to drink 40-60 ounces of liquids per day using the 1-ounce cups. The patient had been given prescriptions for Tylenol for pain, Zofran prn for nausea, and pantoprazole and carafate previously. The patient was encouraged to ambulate and use the incentive spirometer. The patient was allowed to shower, but no baths, and encouraged to stay active at home. All of these instructions were given to the patient personally. All questions were answered and the patient understood all instructions, the instructions were also given to the patient in print. Time Attestation Discharge Coordination Time (in mins): 30 Quality: Safe Use of Opioids Does Pt have an Active Cancer Diagnosis on the Problem List?: No Quality: Stroke Does the patient have a stroke diagnosis?: No Physical Exam Vital Signs: Vital Signs: Last Vital Signs Temp 97.4 F 07/14/25 10:22 Pulse 93 07/14/25 10:37 Resp 22 H 07/14/25 10:45 BP 141/78 H 07/14/25 10:45 Pulse Ox 100 07/14/25 10:45 O2 Del Method Nasal Cannula 07/14/25 10:45 O2 Flow Rate 2 07/14/25 10:45 BMI result Body Mass Index 54.6 DS: Data Data Completed and Pending Pending studies at discharge: Pending at discharge 07/14/25 10:12 Surgical [PTH] Routine Labs on day of discharge: Laboratory Results - last 24 hr 07/14/25 06:15 Urine Test NEGATIVE Discharge Plan Discharge Anticipated Discharge Date/Time: 07/15/25 10:00 Patient Disposition: Home, Self-Care Discharge Diagnosis: s/p laparoscopic sleeve gastrectomy with gastropexy Referrals: Iraida Woodruff PA-C [Primary Care Provider, Internal Medicine] - 1 Week Discharge Medications: Continued sertraline 50 mg tablet 50 mg PO DAILY Qty: 90 0RF sucralfate 100 mg/mL suspension 10 ml PO BID Qty: 600 2RF pantoprazole 40 mg tablet,delayed release (DR/EC) 40 mg PO DAILY Qty: 90 0RF ondansetron 4 mg tablet,disintegrating 4 mg PO Q12H Qty: 20 0RF Rx Instructions: Only take one every 12 hours as needed if you have nausea Mirena 21 mcg/24hr (up to 8 yrs) 52 mg intrauterine device intrauterine albuterol sulfate 90 mcg/actuation HFA aerosol inhaler 1 inh inhalation QID PRN (Reason: shortness of breath or wheezing) Qty: 8.5 1RF Held lisinopril 5 mg tablet 5 mg PO DAILY Qty: 90 0RF Hold Instructions: Resume on 07/15/25. Resume only according to parameters given by Dr. Rossi Discontinued famotidine 20 mg tablet 20 mg PO DAILY Qty: 90 0RF Zepbound 7.5 mg/0.5 mL pen injector 7.5 mg subcut .QWEDNESDAY cholecalciferol (vitamin D3) 1,250 mcg (50,000 unit) capsule 1,250 mcg PO FR Activity on Discharge: No heavy lifting Stand Alone Forms: Patient Portal Discharge page Print Language: Mauritanian Care Plan Goals: weight loss Health Concerns: morbid obesity Plan of Treatment: No tub baths, sex or returning to work until discussed at first post op appointment. No alcohol, tobacco or illegal drug use. Continue to use incentive spirometer hourly while awake. Walk in home for 5- 10 minutes every 2 hours during the first week. Wear abdominal binder with activity. Follow all meal plan instructions from your bariatric surgeon. Review bariatric handbook and call with any questions. Discharge Instructions 1. Please call your doctor or come back to the emergency room should any new symptoms arise. 2. Activity: abstain from alcohol,? limited stair climbing, no bending, no driving, no exercise, no illicit substances, no lifting, no sex, no tub bath, no work. 4. Diet: follow your bariatric surgeon's recommendations for advancing diet. 5. Dressing Change/Wound Care: Your incisions are covered with waterproof dressings. You can shower with these and pat dry. Do not rub over dressings or incisions. If the area is tender, you may apply an ice pack for short intervals (no more than 20 minutes on, followed by at least 20 minutes off). Do not apply heat. Do not use creams, lotions, or topical antibiotics unless instructed to do so by your surgeon. 6. Call your doctor if: - Your temperature exceeds 101.5 F - You experience excessive pain or swelling - You have an unexpected reaction to medication - You have excessive bleeding - You experience continued vomiting/nausea - Your incision begins to separate - Your incision shows signs of infection such as increased redness, swelling, excessive pain, heat, or drainage (light blood or clear fluid is normal) General instructions: No lifting greater than 10 lbs for the next 6 weeks[address] within 24 hours of taking narcotic pain medications. If you do not move your bowels in the next 2 days, please take milk of magnesia over the counter. Please follow the post op diet and do not advance your diet until instructed by your surgeon or until you are seen in the office in about 1 week. Please walk around your home every hour or two to prevent blood clots from forming in your legs. You do not need to wake from sleeping to walk. Please sleep in a bed or couch to prevent kinking at the hips and knees. Please take your incentive spirometer (your lung application support administrator) home with you and use it for the next few days to prevent pneumonias. You may shower; no hot tubs, baths or swimming pools. Please make sure you are consuming 40-60 ounces of total fluids per day. Avoid all carbonation. Please call the office with any questions or concerns such as increasing a bdominal pain, fever, chills, shortness of breath, chest pain, leg pain or swelling, or redness or drainage from your incisions. Do not hesitate to contact the office with any questions at . The patient's medical history has been reviewed and they are considered low risk for post op DVT and therefore DVT prophylaxis is not considered necessary. Travel after surgery was reviewed. The patient has not disclosed any travel plans during the first 30 days after surgery and they have been advised that within the first 30 days after surgery any bus, plane, train or car travel over 2 hours in duration is contraindicated due to the possibility of developing blood clots from immobility. Any travel, needs to include periods of ambulation of 10 minutes in duration every 2 hours.? The patient was instructed to discuss any plans for travel during this period with their bariatric surgeon. Assessment: s/p laparoscopic sleeve gastrectomy with gastropexy
[2025-07-14 11:12] LABS: Hematocrit 39.2 % (37.0-47.0); Hemoglobin 13.2 g/dl (12.0-16.0)
[2025-07-14 11:24] LABS: Anion Gap 19 (12-20); Blood Urea Nitrogen 5 mg/dL (9-16); Calcium 8.8 mg/dL (8.4-10.2); Carbon Dioxide 21 mmol/L (22-29); Chloride 101 mmol/L (96-108); Creatinine Clr Calc Pharmacy 189.6; Estimated Glomerular Filt Rate > 60; Potassium 3.7 mmol/L (3.3-5.1); Sodium 137 mmol/L (135-145)
[2025-07-14] MEDS: 0.9 % Sodium Chloride Flush 3 ML SYRINGE IVFLUSH (20:13)
[2025-07-15 03:04] VITALS: BP 132/77; PULSE 82; RESP 18; TEMP 36.7; O2SAT 97
[2025-07-15] MEDS: Lactated Ringers 1,000 ML 100 ML IVCONT (05:47)
[2025-07-15 06:45] LABS: MANUAL DIFF FLAG NO
[2025-07-15 07:04] LABS: Hematocrit 40.1 % (37.0-47.0); Hemoglobin 12.9 g/dl (12.0-16.0); Imm Gran Abs Auto 0.04 X10*3/uL (0.00-0.03); Imm Gran Pct Auto 0.6 % (0.0-0.4); Lymphocytes Absolute Auto 0.6 X10*3/uL (1.2-4.9); Mean Corpuscular HGB Conc 32.2 g/dl (31.0-35.0); Mean Corpuscular Hemoglobin 26.9 pg (27.0-33.0); Mean Corpuscular Volume 83.5 fL (80.0-98.0); NRBC Abs Auto 0.000 X10*3/uL (0.0-0.012); NRBC Pct Auto 0.0 /100WBC (0.0-0.2); Platelet Count 252 X10*3/uL (160-400); Red Blood Count 4.80 X10*6/uL (4.20-5.50); White Blood Count 7.2 X10*3/uL (4.8-10.8)
[2025-07-15 07:12] VITALS: BP 140/91; PULSE 83; RESP 16; TEMP 36.3; O2SAT 98
[2025-07-15 07:12] LABS: Anion Gap 18 (12-20); Blood Urea Nitrogen 3 mg/dL (9-16); Calcium 9.2 mg/dL (8.4-10.2); Carbon Dioxide 19 mmol/L (22-29); Chloride 103 mmol/L (96-108); Creatinine Clr Calc Pharmacy 204.2; Estimated Glomerular Filt Rate > 60; Potassium 4.2 mmol/L (3.3-5.1); Sodium 136 mmol/L (135-145)
--- NOTE | 2025-07-15 08:32 | HO.POSTANES ---
Post Anesthesia Evaluation Post Anesthesia Evaluation Date of Service: 07/15/25 Vital Signs: Vital Signs Temp Pulse Resp BP Pulse Ox O2 Del Method 07/15/25 07:12 97.4 F 83 16 140/91 H 98 Room Air 07/15/25 03:04 98.0 F 82 18 132/77 97 Room Air 07/14/25 23:22 98.3 F 73 18 139/92 H 98 Room Air Anesthesia: General Mental Status: Awake Pain Control: Satisfactory Nausea/Vomiting: None Hydration: Adequate Anesthesia-Related Issues: No Anes. Related Issues
--- NOTE | 2025-07-15 09:31 | MHC.CM.PN ---
PT REPORTS SHE LIVES ALONE AND IS INDEPENDENT WITH CARE SHE HAS NO DME AND NO SERVICES HCP COMPLETED TODAY, NOW ON FILE PCP [facility] PT WILL DC HOME TODAY WITH NO SERVICES MOTHER TO TRANSPORT
[2025-07-15 09:51] VITALS: BP 126/79; PULSE 73; RESP 14; TEMP 36; O2SAT 100
== END 2025-07-15 09:54 | disposition home or self-care (01) | DRG 621 ==
LOC: HO.SSSA 07:01 → HO.S3 10:46
PROVIDERS: Nurse Practitioner; Physician Assistant Surgical; Admitting Provider Surgery; Visit Provider Surgery
PROC: 0DB64Z3 Excision of Stomach, Percutaneous Endoscopic Approach, Vertical (ICD-10-PCS; CPT 43845; principal; 2025-07-14 07:30)
DX: E66.01 Morbid (severe) obesity due to excess calories (principal); E28.2 Polycystic ovarian syndrome; G47.33 Obstructive sleep apnea (adult) (pediatric); F90.9 Attention-deficit hyperactivity disorder, unspecified type; K21.9 Gastro-esophageal reflux disease without esophagitis; Z68.43 Body mass index [BMI] 50.0-59.9, adult; F32.A Depression, unspecified; F41.9 Anxiety disorder, unspecified; K76.0 Fatty (change of) liver, not elsewhere classified; Z79.899 Other long term (current) drug therapy
CPT/HCPCS: 36415; 80048; 81025; 85014; 85018; 85025; 86850; 86900; 86901; 88304; 88305; 88307; 88342; A4649; J0131; J0330; J1100; J1171; J1308; J1956; J2003; J2250; J2405; J2704; J2795; J3010; J7120

== ENCOUNTER → 2025-07-14 06:06 | Outpatient (BNV) | payer MEDICARE, SELFPAY | PROVIDERS: Admitting Provider Surgery; Visit Provider Surgery | DX: E66.01 Morbid (severe) obesity due to excess calories (principal); K21.9 Gastro-esophageal reflux disease without esophagitis; E28.2 Polycystic ovarian syndrome; F90.9 Attention-deficit hyperactivity disorder, unspecified type; F32.A Depression, unspecified; F41.9 Anxiety disorder, unspecified; I10 Essential (primary) hypertension; G47.30 Sleep apnea, unspecified; K76.0 Fatty (change of) liver, not elsewhere classified; Z98.84 Bariatric surgery status; R16.0 Hepatomegaly, not elsewhere classified | CPT/HCPCS: 43659; 43775; 99024 ==

== ENCOUNTER 2025-07-20 12:05 | Outpatient (AMB) | payer OTHER, MEDICAID, SELFPAY ==
--- NOTE | 2025-07-20 12:00 | A.OFFWM_ITS ---
Intake Intake Visit Reasons: TV PO LSG 07/14/25 Allergies cephalexin (From Keflex) Allergy (Intermediate, Verified 07/05/25 14:26) Redness of Skin doxycycline Allergy (Intermediate, Verified 07/05/25 14:26) Hives Penicillins Allergy (Intermediate, Verified 07/05/25 14:29) Hives, burning sensation Sulfa (Sulfonamide Antibiotics) Allergy (Intermediate, Verified 07/05/25 14:29) Hives,palpatations PFSH Medical History Sleep apnea treated with nocturnal bilevel positive airway pressure (BPAP) Sleep apnea PCOS (polycystic ovarian syndrome) Migraines ADHD (attention deficit hyperactivity disorder) Depression GERD (gastroesophageal reflux disease) Morbid obesity Asthma High blood pressure Surgical History S/P tonsillectomy History of eye surgery Family History Maternal Grandmother Breast cancer Mother Diabetes Other HTN (hypertension) Social History Household Members: None Housing: Apartment Are you a primary healthcare administration internship to a significant other at home: No Do you presently have visiting nurse or other home services: No Alcohol intake: current Alcohol intake frequency: holidays/special occasions only Patient Tobacco Use Status: Never used Tobacco e-Cigarette/Vaping Use: Never Used Second Hand Smoke Exposure: No service: No Current occupational status: employed Cognitive needs: No Hearing needs: No Vision needs: Yes (Glasses) Female Reproductive History Menstrual Age of Menarche: 11 Behavioral Health Assessment Weight Management Therapy Therapy Notes Details Subjective: The patient underwent weight loss surgery on 07/14/2025, with a weight of 308 lbs on the day of surgery. She denies any significant pain or complications during her recovery and reports that she is tolerating the liquid diet well. She is currently taking two weeks off from work, with a scheduled return on 07/26/25, but would like to extend her leave; this plan is supported by the provider. Her mood is stable and within normal limits. She identifies her mother as her primary support and denies experiencing hunger or preoccupation with food. Objective: The patient presents for a behavioral health post-operative follow-up visit. A guided emotional check-in was conducted to assess her current functioning, recovery, mood, and emotional state. Psychoeducation was provided on the emotional and psychological adjustments commonly experienced after bariatric surgery. We also focused on distinguishing between hunger and cravings or food thoughts, exploring possible reasons for these experiences, and strategies to work on her mindset. Emphasis was placed on becoming mindful of her physical and mental needs during these times while staying on track. The importance of adhering to the Weight Management Program (WMP) providers' instructions was emphasized, including the pace of drinking and following the meal and exercise plan. Tips and recommendations for long-term success were also discussed. Program resources were provided, and the patient was invited to join our Facebook group to stay informed about ongoing events and activities. Assessment/Response: * Mental status: WNL * Risk reported/identified: None Food/Weight/Diet Expectations of change Pt started the program on 03/22/2025 at 370 lbs. The initial goal is to lose 10% of your weight before surgery, which is about 40 lbs. Ultimate weight goal: 330 lbs before surgery. Weight as of 04/12/2025: 372 lbs. weight as of 04/26/2025: 366Lbs Weight as of 05/24/2025: 352 Lbs. Weight on surgery day was 308Lbs. Pt's target weight: under 200Lbs. PT is implementing the following: Current meal plan: 3 shakes per day + liquids. Total liquid goal: min 40oz -max 60oz. She has been getting over 40oz. Exercise plan: none yet. Assessment & Plan Assessment & Plan (1) Anxiety disorder: Code(s): F41.9 - Anxiety disorder, unspecified (2) History of ADHD: Code(s): Z86.59 - Personal history of other mental and behavioral disorders (3) Status post bariatric surgery: Code(s): Z98.84 - Bariatric surgery status Plan * Follow-up appointment scheduled in 1 month for a behavioral health post-op check-in. * Patient is advised to take the full month off from work due to the physically demanding nature of her job and to support adherence to the recommended meal plan. * Next appointment: 08/17/25 at 12:00 PM (video visit). Telehealth Telehealth Telehealth Platform: [employer] Location of provider rendering services: other (Home office. [place], [place]) Location of patient: address on file Patient Identification confirmed using: Name, : Yes Telehealth method: video Patient verbally consented to treatment: Yes Patient verbally consented to billing insurance company: Yes Patient informed of any privacy concerns related to visit: Yes Minutes spent on Phone/Video with Pt.: 30 Coding Level of Care Code Established Pt Tele Psytx 30 mins (11726) Patient Type Established Diagnoses Anxiety disorder F41.9 History of ADHD Z86.59 Status post bariatric surgery Z98.84 Time Spent (min) 30
--- OUTSIDE RECORDS SUMMARY | 2025-07-20 12:47 | XMS_ITS | Encounter Summary ---
Author Organization [facility] Address [address] [place] [address] Care Team Providers Care Hardwood Floor Installer Name Role Phone Martina Gonzalez MD Primary Care Provider Unavail able Darin Restrepo MD Primary Care Provider Sushma Jin CHARGE ATTENDANT Primary Care Provider Aranza vailable Carolyn Skaggs MD Primary Care Prov ider Sushma Jin CHARGE ATTENDANT Primary Care Provider Aranza vailable Encounter Details Date Type Department Care Team Description 05/31/2019 Orders Only Adult Medicine [address] [id number] Martina Gonzalez MD Vitamin D deficiency (Primary Dx) Social History Tobacco Use Types Packs/Day Years Used Date Smoking Tobacco: Never Smokeless Tobacco: Never Comments:mom quit Alcohol Use Standard Drinks/Week Comments No 0 (1 standard drink = 0.6 oz pur e alcohol) Sex Assigned at Date Recorded Female 03/19/2022 3:55 PM EDT Job Start Date Occupation Industry Not on file Not on file Not on file documented as of this encounter Plan of Treatment Not on file documented as of this encounter Visit Diagnoses Diagnosis Vitamin D deficiency- Primary Unspecified vitamin D deficiency documented in this encounter Care Teams Hardwood Floor Installer Relationship Specialty Start Date End Date Martina Gonzalez MD PCP - General Internal Medicine 12/21/18 10/14/21 Darin Restrepo MD [address] [place] [id number] PCP - General Internal Medicine 10/15/21 06/16/22 Sushma Jin NP [address] [place] [address] PCP - General Internal Medicine 06/17/22 09/04/22 Carolyn Skaggs MD [address] [place] [address] PCP - General Internal Medicine 09/05/22 11/11/23 Sushma Jin NP [address] [place] [address] PCP - General Internal Medicine 11/12/23 documented as of this encounter
--- OUTSIDE RECORDS SUMMARY | 2025-07-20 12:47 | XMS_ITS | Encounter Summary ---
Author Organization [facility] Address [address] [facility] [facility] [place] [address] Phone Care Team Providers Care Logistical Engineer Name Role Phone Darin Restrepo MD Primary Care Provider + Encounter Details Date Type Department Care Team (Late st Contact Info) Description 10/10/2022 Procedure [facility], Ct Scan - [address] [address] Social History Tobacco Use Types Packs/Day Years [...] documented as of this encounter Care Teams Logistical Engineer Relationship Specialty Start Date End Date Darin Restrepo MD [address] [place] [id number] PCP - General Internal Medicine 11/30/21 documented as of this encounter Additional Source Comments The information contained in this document represents components of the legal health record. It is not the complete legal health record.[facility]
--- OUTSIDE RECORDS SUMMARY | 2025-07-20 12:47 | XMS_ITS | Encounter Summary ---
Author Organization [facility] Address [address] [place] [address] Care Team Providers Care Television Equipment Operator Name Role Phone Arpita White MD Primary Care Provider [facility] anastasiia Barone, Pcp Primary Care Provider [facility] Martina Diaz MD Primary Care Provider Unavail Darin Ferrer MD Primary Care Provider [phone] Sushma Jin NP Primary Care Provider Aranza vailable Carolyn Skaggs MD Primary Care Prov ider Sushma Jin SECURITIES TELLER Primary Care Provider Aranza vailable Encounter Details Date Type Department Care Team Description 01/15/2013 Lean Facilitator Report Medical Records [address] [place] [id number] [place] [address] Social History Tobacco Use Types Packs/Day Years Used Date Smoking Tobacco: Passive Smo ke Exposure - Never Smoker Comments:mom smokes out in t he porch Alcohol Use Standard Drinks/Week Comments Not Asked 0 (1 standard drink = 0.6 oz pur e alcohol) Sex Assigned at Date Recorded Female 03/19/2022 3:55 PM E DT Job Start Date Occupation Industry Not on file Not on file Not on file documented as of this encounter Plan of Treatment Not on file documented as of this encounter Visit Diagnoses Not on filedocumented in this encounter Care Teams Television Equipment Operator Relationship Specialty Start Date End Date Arpita White MD PCP - General 99 07/22/18 [facility], Pcp PCP - General Internal Medicine 07/23/18 12/20/18 Martina Gonzalez MD PCP - General Internal Medicine 12/21/18 10/14/21 Darin Restrepo MD [address] [place] [address] PCP - General Internal Medicine 10/15/21 06/16/22 Sushma Jin NP [address] [place] [address] PCP - General Internal Medicine 06/17/22 09/04/22 Carolyn Skaggs MD [address] [place] [address] PCP - General Internal Medicine 09/05/22 11/11/23 Sushma Jin NP [address] [place] [address] PCP - General Internal Medicine 11/12/23 documented as of this encounter
--- OUTSIDE RECORDS SUMMARY | 2025-07-20 12:47 | XMS_ITS | Encounter Summary ---
Author Organization [facility] Address [address] [place] [address] Phone Care Team Providers Care Furniture Duster Name Role Phone Darin Restrepo MD Primary Care Provider + Encounter Details Date Type Department Care Team (Late st Contact Info) Description 01/22/2024 Procedure Pass [facility], Ct Scan - [facility] [address] [place] [address] Social History Tobacco Use Types Packs/Day Years Used Date Smoking Tobacco: Never Smokeless Tobacco: Never Alcohol Use Standard Drinks/Week Comments No 0 (1 standard drink = 0.6 oz pur e alcohol) Education Answer Date Recorded Are you interested in more education? Not on lainey e 03/21/2023 Are you concerned about learning? Not on file 03/21/2023 No 03/21/2023 No 03/21/2023 Digital Access Answer Date Recorded No 04/21/2023 No 04/21/2023 No 04/21/2023 Reliable internet access at home? Not on file 04/21/2023 Device with a working camera? Not on file Comments Unknown Sex and Gender Information Value [...] Onset Date Last Indicated Resolved Time CoV-Risk 01/21/2024 01/21/2024 02/01/2024 1:22 AM EST documented as of this encounter Care Teams Furniture Duster Relationship Specialty Start Date End Date Darin Restrepo MD [address] [place] [address] PCP - General Internal Medicine 11/30/21 documented as of this encounter Additional Source Comments The information contained in this document represents components of the legal health record. It is not the complete legal health record.[facility]
--- OUTSIDE RECORDS SUMMARY | 2025-07-20 12:47 | XMS_ITS | Encounter Summary ---
Author Organization [facility] Address [address] [place] [address] Care Team Providers Care Manager Testing Name Role Phone Carolyn Skaggs MD Primary Care Prov ider Sushma Jin WIRE SPINNER Primary Care Provider Aranza vailable Encounter Details Date Type Department Care Team Description 04/11/2023 Release of Information Medical Records [address] [place] [address] Abstract, Provider Social History Tobacco Use Types Packs/Day Years Used Date Smoking Tobacco: Never Smokeless Tobacco: Never Alcohol Use Standard Drinks/Week Comments Yes 1 (1 standard drink = 0.6 oz pur e alcohol) Ocassioanally Sex Assigned at Date Recorded Female 03/19/2022 3:55 PM E DT Job Start Date Occupation Industry Not on file Not on file Not on file COVID-19 Exposure Response Date Recorded In the last 10 days, have yo u been in contact with someone who was confirmed or suspected to have Coronavirus/COVID-19? No / Unsure 03/12/2023 3:55 PM EDT documented as of this encounter Plan of Treatment Not on file documented as of this encounter Visit Diagnoses Not on filedocumented in this encounter Care Teams Manager Testing Relationship Specialty Start Date End Date Carolyn Skaggs MD [address] [place] [address] PCP - General Internal Medicine 09/05/22 11/11/23 Sushma Jin, RONNY [address] [place] [address] PCP - General Internal Medicine 11/12/23 documented as of this encounter
--- OUTSIDE RECORDS SUMMARY | 2025-07-20 12:47 | XMS_ITS | Encounter Summary ---
Author Organization [facility] Address [address] [place] [address] Phone Care Team Providers Care Structural Designer Name Role Phone Arpita White MD Primary Care Provider Martina Hunter MD Primary Care Provider [phone] Darin Restrepo MD Primary Care Provider + Encounter Details Date Type Department Care Team (Latest Contact Info) Description 10/24/2017 Transcribe Orders [facility] [address] [place] [address] Cameron Jones MD [address] [place] [address] Hirsutism (Primary Dx); Oligomenorrhea, unspecified type Social History Tobacco Use Types Packs/Day Years Used Date Smoking Tobacco: Never Assessed Comments Unknown Sex and Gender Information Value Date Recorded Sex Assigned at Female 01/17/2020 8:42 PM EST Legal Sex Female 4:47 PM EDT Gender Identity Female 01/17/2020 8:42 PM EST Sexual Orientation Choose not to disclose 2017 9:38 AM EST documented as of this encounter Plan of Treatment Not on file documented as of this encounter Results * (ABNORMAL) Lipid panel (10/24/2017 8:29 AM EST) HDL 51 mg/dL [facility] Comment: Interpretation: Risk Level Females Decreased >55mg/dL Average 50-55 mg/dL Increased <50 mg/dL CHOLESTEROL 141 0 - 240 mg/dL [facility] Comment: Pediatric Reference Ranges for 2 to 18 years Acceptable: Less than 170 mg/dL Borderline: 170 - 199 mg/dL High: Greater than or equal to 200 mg/dL TRIGLYCERIDES 73 30 - 160 mg/dL [facility] LDL 75 50 - 129 mg/dL [facility] Comment: LDL levels in terms of risk for coronary heart disease: <100 mg/dL: Optimal 100-129 mg/dL: Near or above optimal 130-159 mg/dL: Borderline high 160-189 mg/dL: High >190 mg/dL: Very High CARDIAC RISK RATIO 2.8(L) 3.3 - 4.4 C [facility] Blood 10/24/2017 8:29 AM EST 10/24/2017 8:33 AM EST Cameron Jones MD LAB BLOOD ORDERABLES Fi nal Result Performing Organization Address City/State/[facility] Co de Phone Number [facility] [address] [place] [address] documented in this encounter Visit Diagnoses Diagnosis Hirsutism- Primary Oligomenorrhea, unspecified type documented in this encounter Additional Health Concerns Infection Onset Date Last Indicated Resolved Time CoV-Risk 02/16/2023 02/16/2023 02/27/2023 1:22 AM EDT CoV-Risk 01/21/2024 01/21/2024 02/01/2024 1:22 AM EST documented as of this encounter Care Teams Structural Designer Relationship Specialty Start Date End Date Arpita White MD [address] [place] [address] PCP - General Pediatrics 10/24/17 11/22/19 Martina Torres MD [address] [place] [address] PCP - General Internal Medicine 11/23/19 11/29/21 Darin Restrepo MD [address] [place] [address] PCP - General Internal Medicine 11/30/21 documented as of this encounter Additional Source Comments The information contained in this document represents components of the legal health record. It is not the complete legal health record.[facility]
--- OUTSIDE RECORDS SUMMARY | 2025-07-20 12:47 | XMS_ITS | Encounter Summary ---
Author Organization [facility] Address [address] [place] [address] Care Team Providers Care Tuber Operator Name Role Phone Arpita White MD Primary [facility] Barone, Pcp [facility] Care Provider Unavail Darin Ferrer MD Primary Care Provider [phone] Sushma Jin PIE FILLER Primary Care Provider Aranza vailable Carolyn Skaggs MD Primary Care Prov ider Sushma Jin PIE FILLER Primary Care Provider Aranza vailable Encounter Details Date Type Department Care Team Description 01/31/2015 [facility] Medical Records [address] [place] [address] Abstract, Provider Social History Tobacco Use Types Packs/Day Years Used Date Smoking Tobacco: Passive Smo ke Exposure - Never Smoker Comments:mom quit Alcohol Use Standard Drinks/Week Comments Not Asked [...] on filedocumented in this encounter Care Teams Tuber Operator Relationship Specialty Start Date End Date Arpita White MD PCP - General 99 07/22/18 [facility], Pcp PCP - General Internal Medicine 07/23/18 12/20/18 Martina Gonzalez MD PCP - General Internal Medicine 12/21/18 10/14/21 Darin Restrepo MD [address] [place] [address] PCP - General Internal Medicine 10/15/21 06/16/22 Sushma Jin NP [address] [place] [address] PCP - General Internal Medicine 06/17/22 09/04/22 Carolyn Skaggs MD [address] [place] [address] PCP - General Internal Medicine 09/05/22 11/11/23 Sushma Jin NP [address] [place] [address] PCP - General Internal Medicine 11/12/23 documented as of this encounter
--- OUTSIDE RECORDS SUMMARY | 2025-07-20 12:47 | XMS_ITS | Encounter Summary ---
Author Organization [facility] Address [address] [place] [address] Care Team Providers Care Shrimp Peeler Name Role Phone Arpita White MD Primary Care Provider [facility] anastasiia Barone, Pcp Primary Care Provider [facility] Primary Care Provider Unavail Darin Ferrer MD Primary Care Provider [phone] Sushma Jin QUILL BUNCHER [employer] SORTER Primary Care Provider Aranza vailable Carolyn Skaggs MD Primary Care Prov ider Sushma Jin [employer] Primary Care Provider Aranza vailable Encounter Details Date Type Department Care Team Description 07/30/2017 Review Scheduling Coordinator Report Medical Records [address] [place] [address] Cameron Jones Social History Tobacco Use Types Packs/Day Years Used Date Smoking Tobacco: Passive Smo ke Exposure - Never Smoker Smokeless Tobacco: Never Comments:mom quit Alcohol Use [...] on filedocumented in this encounter Care Teams Shrimp Peeler Relationship Specialty Start Date End Date Arpita White MD PCP - General 99 07/22/18 [facility], Pcp PCP - General Internal Medicine 07/23/18 12/20/18 Martina Gonzalez MD PCP - General Internal Medicine 12/21/18 10/14/21 Darin Restrepo MD [address] [place] [address] PCP - General Internal Medicine 10/15/21 06/16/22 Sushma Jin NP [address] [place] [address] PCP - General Internal Medicine 06/17/22 09/04/22 Carolyn Skaggs MD [address] [place] [address] PCP - General Internal Medicine 09/05/22 11/11/23 Sushma Jin NP [address] [place], [place] [address] PCP - General Internal Medicine 11/12/23 documented as of this encounter
--- OUTSIDE RECORDS SUMMARY | 2025-07-20 12:47 | XMS_ITS | Encounter Summary ---
Author Organization [facility] Address [address] [place] [address] Care Team Providers Care Client Account Representative Name Role Phone Darin Restrepo MD Primary Care Provider [phone] Sushma Jin LICENSED TAX CONSULTANT Primary Care Provider Aranza vailable Carolyn Skaggs MD Primary Care Prov ider Sushma Jin LICENSED TAX CONSULTANT Primary Care Provider Aranza vailable Encounter Details Date Type Department Care Team Description 11/30/2021 Pt. Non Urgent Medical Question Pulmonology - [place] [address] [place] [phone] Shar Banegas MD [address] [place] [phone] Social History Tobacco Use Types Packs/Day Years [...] Exposure Response Date Recorded In the last month, have you been in contact with someone who was confirmed or suspected to have Coronavirus / COVID-19? No / Unsure 11/02/2021 3:45 PM EST documented as of this encounter Miscellaneous Notes * Telephone Encounter - Maile Sahni M.A. - 11/30/2021 2:10 PM ESTFrom: Nena Zafar To: Alex Banegas Sent: 11/30/2021 1:57 PM EST Subject: Asthma Hi My asthma is really acting up and I have an appt at the end of January with the livestock broker. At my job, I was told I need a reasonable accommodation letter stating that I can the blue surgical mask due to the to the N95 triggers my asthma, and makes it worse. I can???t work with it on. I really need to work and not get it any troub le or get COVID. I would appreciate if you can please write thesereasonable accommodation for the blue surgical mask, thats the only one that I can breathe in. Thank in advance Thanks, Nena Zafar documented in this encounter Plan of Treatment Not on file documented as of this encounter Visit Diagnoses Not on filedocumented in this encounter Care Teams Client Account Representative Relationship Specialty Start Date End Date Darin Restrepo MD [address] [place] [address] PCP - General Internal Medicine 10/15/21 06/16/22 Sushma Jin NP [address] [place] [address] PCP - General Internal Medicine 06/17/22 09/04/22 Carolyn Skaggs MD [address] [place] [address] PCP - General Internal Medicine 09/05/22 11/11/23 Sushma Jin NP [address] [place] [address] PCP - General Internal Medicine 11/12/23 documented as of this encounter
--- OUTSIDE RECORDS SUMMARY | 2025-07-20 12:47 | XMS_ITS | Encounter Summary ---
Author Organization [facility] Address [address] [place] [address] Care Team Providers Care Reliner Name Role Phone Arpita White MD Primary Care Provider [facility], Pcp Primary Care Provider Martina Cade MD Primary Care Provider Unavail Darin Ferrer MD Primary Care Provider [phone] Sushma Jin NP Primary Care Provider Aranza vailable Carolyn Skaggs MD Primary Care Prov ider Sushma Jin DIGITAL ACCOUNT SUPERVISOR Primary Care Provider Aranza vailable Reason for Visit * Reason Comments E-prescribe Rx Request Encounter Details Date Type Department Care Team Description 02/10/2017 Refill Pediatrics - [address] [id number] Arpita White MD E-prescribe Rx Request Social History Tobacco Use Types Packs/Day Years [...] on file documented as of this encounter Miscellaneous Notes * Telephone Encounter - Chacha Garrett Zev - 02/10/2017 11:07 AM EDT When was patients last PE/WCC? 11/08/16 When is patients next PE/WCC scheduled? waitlisted Arpita White RX REQUEST WHEN MED IS ON THE LIST: All of the medications requested were on the CURRENT MEDS list Did you check the Pharmacy information above?: YES Indicate how soon the patient needs the script: MODE Patient would like script to be: E-PRESCRIBED/FAXED TO PHARMACY Is the doctor here today?: NO Can the message wait until the doctor returns?: NO Has the patient been told that the prescription will not be filled until the end of the day? NO Arpita White Payor: [facility] MEDICAID / Plan: [facility] MEDICAID HMO $0 [place] [employer] / Product Type: HMO [id number] documented in this encounter Plan of Treatment Not on file documented as of this encounter Visit Diagnoses Not on filedocumented in this encounter Care Teams Reliner Relationship Specialty Start Date End Date Arpita White MD PCP - General 99 07/22/18 [facility] PCP - General Internal Medicine 07/23/18 12/20/18 Martina Gonzalez MD PCP - General Internal Medicine 12/21/18 10/14/21 Darin Restrepo MD [address] [place] [address] PCP - General Internal Medicine 10/15/21 06/16/22 Sushma Jin NP [address] [place] [address] PCP - General Internal Medicine 06/17/22 09/04/22 Carolyn Skaggs MD [address] [place], [place] [phone] PCP - General Internal Medicine 09/05/22 11/11/23 Sushma Jin NP [address] [place], [place] [phone] PCP - General Internal Medicine 11/12/23 documented as of this encounter
--- OUTSIDE RECORDS SUMMARY | 2025-07-20 12:47 | XMS_ITS | Encounter Summary ---
Author Organization [facility] Address [address] [place] [address] Care Team Providers Care Long Chain Quiller Tender Name Role Phone Sherrell Gonzalez MD Primary Care Provider Darin Glass MD Primary Care Provider [phone] Sushma Jin STEEL BURNER Primary Care Provider Aranza vailable Carolyn Skaggs MD Primary Care Prov ider Sushma Jin STEEL BURNER Primary Care Provider Aranza vailable Reason for Visit * Reason Onset Date Comments Cough 02/21/2020 Encounter Details Date Type Department Care Team Description 02/21/2020 Telephone Adult Medicine [address] [address] Sherrell Gonzalez MD Cough Social History Tobacco Use Types Packs/Day Years [...] encounter Miscellaneous Notes * Telephone Encounter - Clarice Ross R.N. - 02/21/2020 2:11 PM EDT Pt has had Cough, sob and cannot smell or taste, chills for week Days, Pt is concerned about covid 19 virus. Pt has not traveled and has not had any contacts who have traveled in 14 days . Pt has had contact with known or presumed covid 19 pt. Pt has not visited er or any urgent care and has not been tested Feels chest wall pain Whe she lies down and with deep breath / cough, feels SOB ( has no COPD/ asthma or any respiratory condition ) , able to speak in full sentences and has no audible wheezing, cough is non productive for Sputum, denies fever (97 ) able to take PO with no difficulty, has had diarrhea and nausea , no vomting No abd pain, no blood in stools pt is also C/O cough, congestion ,fatigue , sore throat Advised home care following the Cough/ breathing problems Protocol. RN reinforced telephone consultation and advice. Reviewed with the patient the signs and symptoms to watch for that would require immediate attention. If symptoms change, worsen or increase in intensity, to call back immediately. Appointment not needed . 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 For ALL patients calling to schedule any appointment (routine, sick visit, follow up, consult, etc.) in the outpatient setting please ask the following questions. ??? Do you have fever, cough or shortness of breath? YES ??? Have you had close contact with someone with Coronavirus in the last 14 days? YES ??? Have you traveled abroad? NO ??? Have you been to [place] or in contact with anyone who has recently been in [place]? NO If YES to either, send the call to triage and do not book If pain or injury related was it due to an accident at work or from a motor vehicle accident? NO If yes, gather 3rd democrat insurance information Date of accident/Injury: How long has patient had these symptoms?: 1 week PCP: SHERRELL GONZALEZ [place] / Plan: MEDICARE-[employer] / Product Type: MEDICARE [id number] documented in this encounter Plan of Treatment Not on file documented as of this encounter Visit Diagnoses Not on filedocumented in this encounter Care Teams Long Chain Quiller Tender Relationship Specialty Start Date End Date Sherrell Gonzalez MD PCP - General Internal Medicine 12/21/18 10/14/21 Darin Restrepo MD [address] [place] [address] PCP - General Internal Medicine 10/15/21 06/16/22 Sushma Jin NP [address] [place], [place] [phone] PCP - General Internal Medicine 06/17/22 09/04/22 Carolyn Skaggs MD [address] [place] [address] PCP - General Internal Medicine 09/05/22 11/11/23 Sushma Jin NP [address] [place] [address] PCP - General Internal Medicine 11/12/23 documented as of this encounter
--- OUTSIDE RECORDS SUMMARY | 2025-07-20 12:47 | XMS_ITS | Encounter Summary ---
Author Organization [facility] Address [address] [place] [address] Care Team Providers Care Railroad Car Checker Name Role Phone Carolyn Skaggs MD Primary Care Prov ider Sushma Jin RAIL SWITCH OPERATOR Primary Care Provider Aranza vailable Encounter Details Date Type Department Care Team Description 02/25/2023 Telephone Adult Medicine [address] [address] Carolyn Skaggs MD [address] [place] [address] Social History Tobacco Use Types Packs/Day Years [...] suspected to have Coronavirus/COVID-19? No / Unsure 02/20/2023 2:17 PM EDT documented as of this encounter Plan of Treatment Not on file documented as of this encounter Visit Diagnoses Not on filedocumented in this encounter Care Teams Railroad Car Checker Relationship Specialty Start Date End Date Carolyn Skaggs MD [address] [place] [address] PCP - General Internal Medicine 09/05/22 11/11/23 Sushma Jin NP [address] [place] [address] PCP - General Internal Medicine 11/12/23 documented as of this encounter
--- OUTSIDE RECORDS SUMMARY | 2025-07-20 12:47 | XMS_ITS | Encounter Summary ---
Author Organization [facility] Address [address] [place] [address] Care Team Providers Care Veterinary Dentist Name Role Phone Arpita White MD Primary Care Provider [facility], Pcp Primary Care Provider Martina Cade MD Primary Care Provider Unavail Darin Ferrer MD Primary Care Provider [phone] Sushma Jin STORE ADMINISTRATIVE ASSISTANT Primary Care Provider Aranza vailable Carolyn Skaggs MD Primary Care Prov ider Sushma Jin STORE ADMINISTRATIVE ASSISTANT Primary Care Provider Aranza vailable Reason for Visit * Reason Comments E-prescribe Rx Request Encounter Details Date Type Department Care Team Description 12/21/2015 Refill Pediatrics - [address] [phone] Arpita White MD E-prescribe Rx Request Social [...] encounter Miscellaneous Notes * Telephone Encounter - Keshawn Tripathi L.P.N. - 12/30/2016 1:58 PM EST msg left to call re: refill request * Telephone Encounter - Seda Martinez - 12/21/2015 11:19 AM EST When was patients last PE/WCC? 08/08/15 When is patients next PE/WCC scheduled? [email or web address] Arpita White RX REQUEST WHEN MED IS ON THE LIST: All of the medications requested were on the CURRENT MEDS list Did you check the Pharmacy information above?: YES Indicate how soon the patient needs the script: OK FOR NEXT DAY Patient would like script to be: E-PRESCRIBED/FAXED TO PHARMACY Is the doctor here today?: NO Can the message wait until the doctor returns?: YES Has the patient been told that the prescription will not be filled until the end of the day? NO Arpita White Payor: [facility] MEDICAID / Plan: [facility] MEDICAID HMO $0 [place] / Product Type: HMO [id number] documented in this encounter Plan of Treatment Not on file documented as of this encounter Visit Diagnoses Not on filedocumented in this encounter Care Teams Veterinary Dentist Relationship Specialty Start Date End Date Arpita White MD PCP - General 99 07/22/18 [facility] PCP - General Internal Medicine 07/23/18 12/20/18 Martina Gonzalez MD PCP - General Internal Medicine 12/21/18 10/14/21 Darin Restrepo MD [address] [place] [address] PCP - General Internal Medicine 10/15/21 06/16/22 Sushma Jin NP [address] [place], [place] [phone] PCP - General Internal Medicine 06/17/22 09/04/22 Carolyn Skaggs MD [address] [place] [address] PCP - General Internal Medicine 09/05/22 11/11/23 Sushma Jin NP [address] [place] [address] PCP - General Internal Medicine 11/12/23 documented as of this encounter
--- OUTSIDE RECORDS SUMMARY | 2025-07-20 12:47 | XMS_ITS | Clinical Summary ---
Author Organization [facility] Address [address] [place] [address] Phone Care Team Providers Care Project Product Manager Name Role Phone Darin Restrepo MD Primary Care Provider + Allergies Active Allergy Reactions Criticality Noted Date Comments Amoxicillin-Pot Clavulanate Rash Low 10/26/20 22 Cephalexin 10/23/2020 Burning sensation all over body. Doxycycline Rash Low 08/06/2022 Doxycycline Hyclate 10/23/2020 hives Sulfa (Sulfonamide Antibiotics) Rash Low 03/06/2021 Medications albuterol 90 mcg/actuation inhaler 2 puffs every 4 (four) hours as needed. Active dextroamphetami ne-amphetamine (ADDERALL XR) 20 MG 24 hr capsule 20 mg. 7 Active fluticasone (FLOVENT HFA) 110 mcg/actuation inhaler INHALE 2 PUFFS INTO THE LUNGS DAILY. 7 Active ibuprofen (ADVIL,MOTRIN) 600 MG tablet TAKE 1 TABLET EVERY 6 HOURS NEEDED FOR PAIN 7 Active propranolol (INDERAL) 10 MG immediate release tablet 10 mg. 6 Active riboflavin, vitamin B2, (,VITAMIN B-2,) 100 mg Tab Take 200 mg by mouth. 5 Active sertraline (ZOLOFT) 50 MG tablet Take 50 mg by mouth. 6 Active inhaler spacing device (BREATHERITE RIGID SPACER-MASK) Spcr 1 Device. 6 Active verapamil (CALAN) 40 MG immediate release tablet 40 mg. 6 Active albuterol 2.5 mg /3 mL (0.083 %) nebulizer solution INHALE CONTENTS OF 1 VIAL VIA NEBULIZER EVERY 4 HOURS NEEDED FOR WHEEZING OR COUGH. 7 Active butalbital-acet aminophen-caffe ine (FIORICET, ESGIC) 50-325-40 mg per tablet Take 2 tablets by mouth at onset of severe headache may repeat 1 every six hours as needed 6 Active MAGNESIUM GLUCONATE ORAL Take 250 mg by mouth 2 (two) times a day. 5 Active cholecalciferol (VITAMIN D3) 2,000 unit tablet Take 1 tablet by mouth. 9 Active clindamycin (CLINDAGEL) 1 % gel APPLY TO UNDERARM DAILY 9 Active cloNIDine HCl (CATAPRES) 0.1 MG tablet Take 0.1 mg by mouth. Active fluticasone furoate 100 mcg/actuation DsDv Inhale 1 puff into the lungs. 9 Active hydrocortisone 2.5 % cream APPLY SPARINGLY TO AFFECTED AREAS TWICE DAILY 9 Active levonorgestreL (LULÚ) 14 mcg/24 hrs (3 yrs) 13.5 mg IUD 1 Units by Intrauterine route. 9 Active baclofen (LIORESAL) 10 MG tabletIndicatio ns:muscle spasticity of spinal origin Take 10 mg by mouth as needed. Indications: muscle spasms caused by a spinal disease Active ipratropium-alb uteroL (DUONEB) 0.5-2.5 mg/3 mL nebulizer solution Take 3 mL by nebulization 4 (four) times a day. 10 vial 0 Active gabapentin (NEURONTIN) 100 MG capsule Take 100 mg by mouth. 1-3 times daily Active spironolactone (ALDACTONE) 25 MG tablet Take 25 mg by mouth daily. Active amLODIPine (NORVASC) 10 MG tablet 1 Active omeprazole (PRILOSEC) 20 MG capsule 2 Active guaiFENesin-cod eine (ROBITUSSIN AC) 100-10 mg/5 mL liquid Take 10 mL (20 mg of codeine total) by mouth every 4 (four) hours as needed for cough. Caution: drowsiness, do not drive, drink alcohol or work while taking 120 mL 2 Active Additional Information Patient not taking.Reported on 10/26/2022 cyclobenzaprine (FLEXERIL) 5 MG tablet Take 1 tablet (5 mg total) by mouth 3 (three) times a day as needed. 10 tablet 2 Active Additional Information Patient not taking.Reported on 10/26/2022 emollient comb no.2, bulk, Oint Apply 0.5 g topically. 2 Active famotidine (PEPCID) 20 MG tablet Take 1 tablet by mouth daily. 2 Active azithromycin (ZITHROMAX) 500 MG tablet Take 1 tablet (500 mg total) by mouth daily. Take 500mg once on day one then 250mg daily on days 2 through 5. 6 tablet 3 Active azithromycin (ZITHROMAX) 250 MG tablet Take one pill by mouth daily until gone. 4 tablet 4 Active Active Problems No known active problems Immunizations Immunization Administration Dates Next Due Tdap 04/27/2021 Social History Tobacco Use Types Packs/Day Years Used Date Smoking Tobacco: Never Smokeless Tobacco: Never Tobacco Cessation:Counseling Given: No Alcohol Use Standard Drinks/Week Comments No 0 [...] with a working camera? Not on file Intimate Partner Violence Answer Date R ecorded Are you denied basic needs s uch as food, clothing, or medical care? No 02/02/2024 In the past 12 months have y ou been in a relationship with a person who hurts, threatens, or tries to control you? No 02/02/2024 Are you denied basic needs s uch as food, clothing, or medical care? No 02/02/2024 In the past 12 months have y ou been in a relationship with a person who hurts, threatens, or tries to control you? No 02/02/2024 Comments Unknown Sex and Gender Information Value Date Recorded Sex Assigned at Female 01/17/2020 8:42 PM EST Legal Sex Female 4:47 PM EDT Gender Identity Female 01/17/2020 8:42 PM EST Sexual Orientation Choose not to disclose 2017 9:38 AM EST Last Filed Vital Signs Vital Sign Reading Time Taken Comments Blood Pressure 159/97 02/03/2024 12:23 AM EDT Pulse 104 02/03/2024 12:23 AM EDT Temperature 36.9 C (98.4 F) 02/03/2024 12:23 AM EDT Respiratory Rate 22 02/03/2024 12:23 AM EDT Oxygen Saturation 97% 02/03/2024 12:23 AM EDT Inhaled Oxygen Concentration - - Weight 163.3 kg (360 lb) 01/21/2024 8:27 PM EST Height 160 cm (5' 3 ) 01/21/2024 8:27 PM EST Body Mass Index 63.77 01/21/2024 8:27 PM EST Plan of Treatment Health Maintenance Due Date Last Done Comments DEPRESSION SCREENING 2011 HEPATITIS C SCREENING 2017 HIV ONE-TIME SCREENING (18-65 YEARS) 2017 PAP SMEAR 2020 COVID-19 VACCINE ( season) 2024 09/06/2021, 01/29/2021, 01/08/2021 POTASSIUM LEVEL 01/21/2025 01/22/2024, 09/24, 11/25/2017 SMOKING STATUS SCREENING (Once After 26 Yrs) 2025 INFLUENZA VACCINE (#1) 2025 , 09/07/2020, 08/26/2019, Additional history exists Adult Td,Tdap Booster 04/27/2031 04/27/2021, 011 HIB VACCINES Completed 06/18/2000, 05/2000, 1999, Additional history exists HPV VACCINES Completed 04/30/2013, 0811/2011, 04/14/2012 MENINGOCOCCAL VACCINES (ACWY) Completed 08/08/2015, 04/14/2012 PNEUMOCOCCAL VACCINES (0-49 years) Aged Out 08/31/2019, 04/14/2001, 07/17/2000 No longer eligible based on patient's age to complete this topic HEPATITIS A VACCINES Aged Out No long er eligible based on patient's age to complete this topic MENINGOCOCCAL VACCINES (B) Aged Out N o longer eligible based on patient's age to complete this topic Medical Devices Not on file Procedures Procedure Name Priority Date/Time Associated Diagnosis Comments BASIC METABOLIC PANEL STAT 01/22/2024 12:35 AM EST from Last 3 Months or Most Recently Relevant to Health Maintenance Results * (ABNORMAL) Basic metabolic panel (01/22/2024 12:35 AM EST) SODIUM 140 133 - 146 mmol/L [facility] CHLORIDE 103 96 - 108 mmol/L [facility] POTASSIUM 4.6 3.3 - 5.1 mmol/L [facility] CO2 27 21 - 35 mmol/L [facility] BUN 15 6 - 19 mg/dL [facility] CREATININE 1.00 0.5 - 1.5 mg/dL [facility] GLUCOSE 100(H) 70 - 99 mg/dL [facility] CALCIUM 9.2 8.4 - 10.3 mg/dL [facility] EGFR 81 >59 mL/min/1.7 3m2 [facility] Comment:Estimated glomerular filtration rate calculated using the CKD-EPI refit equation. ANION GAP 15 10 - 20 mmol/L [facility] Blood 01/22/2024 12:3 5 AM EST 01/22/2024 12:40 AM EST us Grayson Ivan DO LAB BLOOD ORDERABLES F inal Result [facility] [address] [place] [address] from Last 3 Months or Most Recently Relevant to Health Maintenance Insurance [facility] MEDICARE REPLACEMENT [place] [id number] [facility] RE[facility] [address] [address] [facility] MEDICARE REPLACEMENT CARE MEDICARE REPLACEMENT CARE MEDICARE REPLACEMENT [place] [id number] [facility] [address] [address] [facility] MEDICARE REPLACEMENT [place] [id number] [facility] Care Teams Project Product Manager Relationship Specialty Start Date End Date Darin Restrepo MD [address] [place] [address] PCP - General Internal Medicine 11/30/21 Additional Source Comments The information contained in this document represents components of the legal health record. It is not the complete legal health record.[facility]
--- OUTSIDE RECORDS SUMMARY | 2025-07-20 12:47 | XMS_ITS | Encounter Summary ---
Author Organization [facility] Address [address] [place] [address] Care Team Providers Care Psych Coordinator Name Role Phone Martina Gonzalez MD Primary Care Provider Unavail able Darin Restrepo MD Primary Care Provider [phone] Sushma Jin SYSTEM ENGINEER Primary Care Provider Aranza vailable Carolyn Skaggs MD Primary Care Prov ider Sushma Jin SYSTEM ENGINEER Primary Care Provider Aranza vailable Encounter Details Date Type Department Care Team Description 11/15/2019 Orders Only Adult Medicine [address] [address] Martina Gonzalez MD Elevated urine levels of catecholamines (Primary Dx) Social History Tobacco Use Types [...] as of this encounter Visit Diagnoses Diagnosis Elevated urine levels of catecholamines- Primary Other nonspecific finding on examination of urine documented in this encounter Care Teams Psych Coordinator Relationship Specialty Start Date End Date Martina Gonzalez MD PCP - General Internal Medicine 12/21/18 10/14/21 Darin Restrepo MD [address] [place] [address] PCP - General Internal Medicine 10/15/21 06/16/22 Sushma Jin NP [address] [place] [address] PCP - General Internal Medicine 06/17/22 09/04/22 Carolyn Skaggs MD [address] [place] [address] PCP - General Internal Medicine 09/05/22 11/11/23 Sushma Jin NP [address] [place] [address] PCP - General Internal Medicine 11/12/23 documented as of this encounter
--- OUTSIDE RECORDS SUMMARY | 2025-07-20 12:47 | XMS_ITS | Encounter Summary ---
Author Organization [facility] Address [address] [place] [address] Care Team Providers Care Classroom Technology Technician Name Role Phone Martina Gonzalez MD Primary Care Provider Unavail Darin Ferrer MD Primary Care Provider [phone] Sushma Jin PROPOSAL REVIEW ANALYST Primary Care Provider Aranza vailable Carolyn Skaggs MD Primary Care Prov ider Sushma Jin PROPOSAL REVIEW ANALYST Primary Care Provider Aranza vailable Reason for Visit * Reason Onset Date Comments refill request 08/18/2019 Encounter Details Date Type Department Care Team Description 08/18/2019 Refill Respiratory and Diabetes Medicaid/ACO Pharmacist [address] [place] [address] Martina Gonzalez MD refill request Social History Tobacco Use Types Packs/Day Years [...] encounter Miscellaneous Notes * Telephone Encounter - Kiki Jade - 08/18/2019 10:58 AM EDT Please consider refill request. Change in [facility] formulary. If any questions please contact Aisha Elias. Aisha Celetti, PharmD. Transition of Care Pharmacist - Outpatient [facility] [address] [place] [address] P: [phone] days: [phone] [email or web address] documented in this encounter Plan of Treatment Not on file documented as of this encounter Visit Diagnoses Not on filedocumented in this encounter Care Teams Classroom Technology Technician Relationship Specialty Start Date End Date Martina Gonzalez MD PCP - General Internal Medicine 12/21/18 10/14/21 Darin Restrepo MD [address] [place] [address] PCP - General Internal Medicine 10/15/21 06/16/22 Sushma Jin NP [address] [place], [place] [id number] PCP - General Internal Medicine 06/17/22 09/04/22 Carolyn Skaggs MD [address] [place] [address] PCP - General Internal Medicine 09/05/22 11/11/23 Sushma Jin NP [address] [place], [place] [address] PCP - General Internal Medicine 11/12/23 documented as of this encounter
--- OUTSIDE RECORDS SUMMARY | 2025-07-20 12:47 | XMS_ITS | Encounter Summary ---
Author Organization [facility] Address [address] [place] [address] Care Team Providers Care Barge Pilot Name Role Phone Sushma Jin HADOOP ENGINEER Primary Care Provider Aranza vailable Encounter Details Date Type Department Care Team Description 03/04/2024 Orders Only Medical Records [address] [place] [address] [address] Social History Tobacco Use Types Packs/Day Years [...] on file documented as of this encounter Procedures Procedure Name Priority Date/Time Associated Diagnosis Comments OUTSIDE LAB Routine 10/09/2022 documented in this encounter Results * OUTSIDE LAB (10/09/2022) [facility] LAB documented in this encounter Visit Diagnoses Not on filedocumented in this encounter Care Teams Barge Pilot Relationship Specialty Start Date End Date Sushma Jin NP PCP - General Internal Medicine 11/12/23 documented as of this encounter
--- OUTSIDE RECORDS SUMMARY | 2025-07-20 12:47 | XMS_ITS | Patient Health Record ---
Author Organization [facility] [facility] Address [address] [place] [address] Support Name Relationship Address Phone Nena Zafar Guarantor Unknown [phone] Allergies Allergen (clinical drug ingredient) Drug/Non Drug [...] Status Risk Notes Problem Morbid obesity (disorder) (735086883) Morbid (severe) obesity due to excess calories (E66.01) Active confirmed Problem Generalized anxiety disorder (34242635) Generalized anxiety disorder (F41.1) Active confirmed Problem Migraine with aura (3467549) Migraine with aura, not intractable, without status migrainosus (G43.109) Active confirmed Problem Obstructive sleep apnea syndrome (disorder) (67541579) Obstructive sleep apnea (adult) (pediatric) (G47.33) Active confirmed Problem Essential hypertension (00293854) Essential (primary) hypertension (I10) Active confirmed Problem Mild intermittent asthma (472973669) Mild intermittent asthma, uncomplicated (J45.20) Active confirmed Problem Gastro-esophageal reflux disease without esophagitis (506817289) Gastro-esophageal reflux disease without esophagitis (K21.9) Active confirmed Problem Attention deficit hyperactivity disorder, predominantly inattentive type (disorder) (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 [address] [place] [address] [id number] Nena Ballard Self - patient is the insured Medical (General) History Medical History History ICD Code Generalized anxiety disorder/major depre ssive disorder, sees psychiatry ADD GERD Mild intermittent asthma Migraine headaches with aura Hypertension AIDAN cannot tolerate CPAP Surgical History Surgery Date(Month/Year) strabismus surgery
--- OUTSIDE RECORDS SUMMARY | 2025-07-20 12:47 | XMS_ITS | Encounter Summary ---
Author Organization [facility] Address [address] [place] [address] Care Team Providers Care Capacitor Assembler Name Role Phone Martina Gonzalez MD Primary Care Provider Unavail Darin Ferrer MD Primary Care Provider [phone] Sushma Jin TRAINING AND DEVELOPMENT HEAD Primary Care Provider Aranza vailable Carolyn Skaggs MD Primary Care Prov ider Sushma Jin TRAINING AND DEVELOPMENT HEAD Primary Care Provider Aranza vailable Encounter Details Date Type Department Care Team Description 07/18/2021 Gusset Edger Report Medical Records [address] [place] [address] Lucas Leal, PACooperC Social History Tobacco Use Types Packs/Day Years [...] on filedocumented in this encounter Care Teams Capacitor Assembler Relationship Specialty Start Date End Date Martina Gonzalez MD PCP - General Internal Medicine 12/21/18 10/14/21 Darin Restrepo MD [address] [place] [id number] PCP - General Internal Medicine 10/15/21 06/16/22 Sushma Jin NP [address] [place] [address] PCP - General Internal Medicine 06/17/22 09/04/22 Carolyn Skaggs MD [address] [place] [address] PCP - General Internal Medicine 09/05/22 11/11/23 Sushma Jin NP [address] [place] [address] PCP - General Internal Medicine 11/12/23 documented as of this encounter
--- OUTSIDE RECORDS SUMMARY | 2025-07-20 12:47 | XMS_ITS | Encounter Summary ---
Author Organization [facility] Address [address] [place] [address] Care Team Providers Care Critical Care Educator Name Role Phone Arpita White MD [facility], Pcp Primary Care Provider [facility] Martina Diaz MD Primary Care Provider Unavail Darin Frerer MD Primary Care Provider [phone] Sushma Jin PROGRAM ADVISOR Primary Care Provider Aranza vailable Carolyn Skaggs MD Primary Care Prov ider Sushma Jin PROGRAM ADVISOR Primary Care Provider Aranza vailable Encounter Details Date Type Department Care Team Description 01/08/2017 Diesel Mechanic Apprentice Report Medical Records [address] [place] [address] Abstract, Provider Social History Tobacco Use Types [...] on filedocumented in this encounter Care Teams Critical Care Educator Relationship Specialty Start Date End Date Arpita White MD PCP - General 99 07/22/18 [facility], Pcp PCP - General Internal Medicine 07/23/18 12/20/18 Martina Gonzalez MD PCP - General Internal Medicine 12/21/18 10/14/21 Darin Restrepo MD [address] [place] [address] PCP - General Internal Medicine 10/15/21 06/16/22 Sushma Jin NP [address] [place] [address] PCP - General Internal Medicine 06/17/22 09/04/22 Carolyn Skaggs MD [address] [place] [address] PCP - General Internal Medicine 09/05/22 11/11/23 Sushma Jin NP [address] [place] [address] PCP - General Internal Medicine 11/12/23 documented as of this encounter
--- OUTSIDE RECORDS SUMMARY | 2025-07-20 12:47 | XMS_ITS | Encounter Summary ---
Author Organization [facility] Address [address] [place] [address] Care Team Providers Care Coil Rewind Machine Operator Name Role Phone Arpita White MD Primary Care Provider Ann Barone, Pcp [facility] Primary Care Provider Unavail Darin Ferrer MD Primary Care Provider [phone] Sushma Jin ERGONOMIC SPECIALIST Primary Care Provider Aranza vailable Carolyn Skaggs MD Primary Care Prov ider Sushma Jin ERGONOMIC SPECIALIST Primary Care Provider Aranza vailable Encounter Details Date Type Department Care Team Description 05/04/2015 Walk In Clinic Visit Medical Records [address] [place] [address] Abstract, Provider Social History Tobacco Use Types [...] on filedocumented in this encounter Care Teams Coil Rewind Machine Operator Relationship Specialty Start Date End Date Arpita White MD PCP - General 99 07/22/18 [facility], Pcp PCP - General Internal Medicine 07/23/18 12/20/18 Martina Gonzalez MD PCP - General Internal Medicine 12/21/18 10/14/21 Darin Restrepo MD [address] [place] [address] PCP - General Internal Medicine 10/15/21 06/16/22 Sushma Jin NP [address] [place] [address] PCP - General Internal Medicine 06/17/22 09/04/22 Carolyn Skaggs MD [address] [place] [address] PCP - General Internal Medicine 09/05/22 11/11/23 Sushma Jin NP [address] [place] [address] PCP - General Internal Medicine 11/12/23 documented as of this encounter
--- OUTSIDE RECORDS SUMMARY | 2025-07-20 12:47 | XMS_ITS | Encounter Summary ---
Author Organization [facility] Address [address] [place] [address] Care Team Providers Care Reporting Coordinator Name Role Phone Martina Gonzalez MD Primary Care Provider Unavail able Darin Restrepo MD Primary Care Provider [phone] Sushma Jin ROLL OR TAPE EDGE MACHINE OPERATOR Primary Care Provider Aranza vailable Carolyn Skaggs MD Primary Care Prov ider Sushma Jin ROLL OR TAPE EDGE MACHINE OPERATOR Primary Care Provider Aranza vailable Encounter Details Date Type Department Care Team Description 07/25/2021 Refill Nephrology - [address] [address] Christopher Pollard MD [address] [place] [address] Social History Tobacco Use Types Packs/Day Years [...] on filedocumented in this encounter Care Teams Reporting Coordinator Relationship Specialty Start Date End Date Martina Gonzalez MD PCP - General Internal Medicine 12/21/18 10/14/21 Darin Restrepo MD [address] [place] [address] PCP - General Internal Medicine 10/15/21 06/16/22 Sushma Jin NP [address] [place], [place] [address] PCP - General Internal Medicine 06/17/22 09/04/22 Carolyn Skaggs MD [address] [place] [address] PCP - General Internal Medicine 09/05/22 11/11/23 Sushma Jin NP [address] [place] [address] PCP - General Internal Medicine 11/12/23 documented as of this encounter
--- OUTSIDE RECORDS SUMMARY | 2025-07-20 12:47 | XMS_ITS | Encounter Summary ---
Author Organization [facility] Address [address] [place] [address] Care Team Providers Care Tire And Tube Repairer Name Role Phone Arpita White MD Primary Care Provider [facility], Pcp Primary Care Provider Martina Cade MD Primary Care Provider Unavail Darin Ferrer MD Primary Care Provider [phone] Sushma Jin NP Primary Care Provider Aranza vailable Carolyn Skaggs MD Primary Care Prov ider Sushma Jin APPRAISAL COORDINATOR Primary Care Provider Aranza vailable Reason for Visit * Reason Comments E-prescribe Rx Request Encounter Details Date Type Department Care Team Description 12/23/2016 Refill Pediatrics - [address] [id number] Arpita White MD E-prescribe Rx Request Social [...] Miscellaneous Notes * Telephone Encounter - Chacha Brothers - 12/24/2016 8:22 AM EST When was patients last PE/WCC? 11/08/16 When [...] TO PHARMACY Is the doctor here today?: YES Can the message wait until the doctor returns?: NO Has the patient been told that the prescription will not be filled until the end of the day? NO Arpita White Payor: [facility] MEDICAID / Plan: [facility] MEDICAID O $0 MER[place] / Product Type: HMO [id number] documented in this encounter Plan of Treatment Not on file documented as of this encounter Visit Diagnoses Not on filedocumented in this encounter Care Teams Tire And Tube Repairer Relationship Specialty Start Date End Date Arpita White MD PCP - General 99 07/22/18 [facility] PCP - General Internal Medicine 07/23/18 12/20/18 Martina Gonzalez MD PCP - General Internal Medicine 12/21/18 10/14/21 Darin Restrepo MD [address] [place] [address] PCP - General Internal Medicine 10/15/21 06/16/22 Sushma Jin APPRAISAL COORDINATOR [address] [place] [address] PCP - General Internal Medicine 06/17/22 09/04/22 Carolyn Skaggs MD [address] [place] [address] PCP - General Internal Medicine 09/05/22 11/11/23 Sushma Jin NP [address] [place] [address] PCP - General Internal Medicine 11/12/23 documented as of this encounter
--- OUTSIDE RECORDS SUMMARY | 2025-07-20 12:47 | XMS_ITS | Encounter Summary ---
Author Organization [facility] Address [address] [place] [address] Care Team Providers Care English Instructor Name Role Phone Martina Gonzalez MD Primary Care Provider Unavail Darin Ferrer MD Primary Care Provider [phone] Sushma Jin ROOTER OPERATOR Primary Care Provider Aranza vailable Carolyn Skaggs MD Primary Care Prov ider Sushma Jin ROOTER OPERATOR Primary Care Provider Aranza vailable Encounter Details Date Type Department Care Team Description 12/27/2020 Orders Only Medical Records [address] [place] [address] Shar Baengas MD [address] [place] [address] Social History Tobacco Use Types Packs/Day Years [...] have Coronavirus / COVID-19? No / Unsure 12/21/2020 1:15 PM EST documented as of this encounter Plan of Treatment Not on file documented as of this encounter Procedures Procedure Name Priority Date/Time Associated Diagnosis Comments OUTSIDE LAB Routine 12/21/2020 documented in this encounter Results * OUTSIDE LAB (12/21/2020) Shar Banegas MD LAB documented in this encounter Visit Diagnoses Not on filedocumented in this encounter Care Teams English Instructor Relationship Specialty Start Date End Date Martina Gonzalez MD PCP - General Internal Medicine 12/21/18 10/14/21 Darin Restrepo MD [address] [place] [address] PCP - General Internal Medicine 10/15/21 06/16/22 Sushma Jin NP [address] [place] [address] PCP - General Internal Medicine 06/17/22 09/04/22 Carolyn Skaggs MD [address] [place] [address] PCP - General Internal Medicine 09/05/22 11/11/23 Sushma Jin NP [address] [place] [address] PCP - General Internal Medicine 11/12/23 documented as of this encounter
--- OUTSIDE RECORDS SUMMARY | 2025-07-20 12:47 | XMS_ITS | Encounter Summary ---
Author Organization [facility] Address [address] [place] [address] Care Team Providers Care Rf Technician Name Role Phone Arpita White MD Primary Care Provider Shanique Mccarthy MD Primary Care Provider [facility] Pcp Primary Care Provider Martina Cade MD Primary Care Provider Unavail Darin Ferrer MD Primary Care Provider [phone] Sushma iJn ADVANCED PRACTICE PROFESSIONAL Primary Care Provider Aranza vailable Carolyn Skaggs MD Primary Care Prov ider Sushma Jin ADVANCED PRACTICE PROFESSIONAL Primary Care Provider Aranza vailable Encounter Details Date Type Department Care Team Description 1999 [employer] [facility] - [address] [phone] Live Orellana MD UNSPECIFIED VIRAL INFECTION Social [...] site documented in this encounter Care Teams Rf Technician Relationship Specialty Start Date End Date Arpita White MD PCP - General 99 07/22/18 Shanique Ayala MD PCP - General 1999 99 [facility], Pcp PCP - General Internal Medicine 07/23/18 12/20/18 Martina Gonzalez MD PCP - General Internal Medicine 12/21/18 10/14/21 Darin Restrepo MD [address] [place] [address] PCP - General Internal Medicine 10/15/21 06/16/22 Sushma Jin NP [address] [place], [place] [id number] PCP - General Internal Medicine 06/17/22 09/04/22 Carolyn Skaggs MD [address] [place] [address] PCP - General Internal Medicine 09/05/22 11/11/23 Sushma Jin NP [address] [place] [address] PCP - General Internal Medicine 11/12/23 documented as of this encounter
--- OUTSIDE RECORDS SUMMARY | 2025-07-20 12:47 | XMS_ITS | Encounter Summary ---
Author Organization [facility] Address [address] [place] [address] Phone Care Team Providers Care Deck Specialist Name Role Phone Darin Restrepo MD Primary Care Provider + Encounter Details Date Type Department Care Team (Late st Contact Info) Description 01/22/2024 Procedure Pass [facility], Ct Scan - [facility] [address] [place] [address] Social History Tobacco Use Types Packs/Day Years [...] documented as of this encounter Care Teams Deck Specialist Relationship Specialty Start Date End Date Darin Restrepo MD [address] [place] [address] PCP - General Internal Medicine 11/30/21 documented as of this encounter Additional Source Comments The information contained in this document represents components of the legal health record. It is not the complete legal health record.[facility]
--- OUTSIDE RECORDS SUMMARY | 2025-07-20 12:47 | XMS_ITS | Encounter Summary ---
Author Organization [facility] Address [address] [place] [address] Care Team Providers Care Performance Makeup Artist Name Role Phone Darin Restrepo MD Primary Care Provider [phone] Sushma Jin CDL A DRIVER Primary Care Provider Aranza vailable Carolyn Skaggs MD Primary Care Prov ider Sushma Jin CDL A DRIVER Primary Care Provider Aranza vailable Reason for Visit * Reason Comments E-prescribe Rx Request Encounter Details Date Type Department Care Team Description 01/31/2022 Refill General Surgery - [address] [place] [id number] Antonieta Bojorquez MD [address] [place] [address] [address] [place], [place] [address] E-prescribe Rx Request Social History Tobacco Use [...] have Coronavirus / COVID-19? No / Unsure 01/04/2022 11:34 AM EST documented as of this encounter Miscellaneous Notes * Telephone Encounter - Dee Gamboa 01/31/2022 8:06 AM EST Please sign or decline documented in this encounter Plan of Treatment Not on file documented as of this encounter Visit Diagnoses Diagnosis Class 3 severe obesity due to excess calories with body mass index (BMI) of 50.0 to 59.9 in adult, unspecified whether serious comorbidity present (HCC) documented in this encounter Care Teams Performance Makeup Artist Relationship Specialty Start Date End Date Drain Restrepo MD [address] [place] [address] PCP - General Internal Medicine 10/15/21 06/16/22 Sushma Jin NP [address] [place] [address] PCP - General Internal Medicine 06/17/22 09/04/22 Carolyn Skaggs MD [address] [place] [address] PCP - General Internal Medicine 09/05/22 11/11/23 Sushma Jin NP [address] [place] [address] PCP - General Internal Medicine 11/12/23 documented as of this encounter
--- OUTSIDE RECORDS SUMMARY | 2025-07-20 12:47 | XMS_ITS | Encounter Summary ---
Author Organization [facility] Address [address] [place] [address] Care Team Providers Care Tax Processor Name Role Phone Martina Gonzalez MD Primary Care Provider Unavail Darin Ferrer MD Primary Care Provider Sushma Jin THREAD SINGER Primary Care Provider Aranza vailable Carolyn Skaggs MD Primary Care Prov ider Sushma Jin THREAD SINGER Primary Care Provider Aranza vailable Encounter Details Date Type Department Care Team Description 02/07/2021 Old Medical Records Medical Records [address] [place] [address] Cameron Jones Social History Tobacco Use Types [...] have Coronavirus / COVID-19? No / Unsure 01/18/2021 2:36 PM EST documented as of this encounter Plan of Treatment Not on file documented as of this encounter Visit Diagnoses Not on filedocumented in this encounter Care Teams Tax Processor Relationship Specialty Start Date End Date Martina Gonzalez MD PCP - General Internal Medicine 12/21/18 10/14/21 Darin Restrepo MD [address] [place] [address] PCP - General Internal Medicine 10/15/21 06/16/22 Sushma Jin NP [address] [place] [address] PCP - General Internal Medicine 06/17/22 09/04/22 Carolyn Skaggs MD [address] [place] [address] PCP - General Internal Medicine 09/05/22 11/11/23 Sushma Jin NP [address] [place], [place] [id number] PCP - General Internal Medicine 11/12/23 documented as of this encounter
--- OUTSIDE RECORDS SUMMARY | 2025-07-20 12:47 | XMS_ITS | Encounter Summary ---
Author Organization [facility] Address [address] [place] [address] Care Team Providers Care Social Worker Assistant Name Role Phone Arpita White MD Primary Care Provider Ann Barone, Pcp Primary Care Provider Martina Cade MD Primary Care Provider Unavail Darin Ferrer MD Primary Care Provider [phone] Sushma Jin EXECUTIVE VICE PRESIDENT AND CHIEF OPERATING OFFICER Primary Care Provider Aranza vailable Carolyn Skaggs MD Primary Care Prov ider Sushma Jin EXECUTIVE VICE PRESIDENT AND CHIEF OPERATING OFFICER Primary Care Provider Aranza vailable Encounter Details Date Type Department Care Team Description 10/12/2014 [facility] [address] [place] [address] [address] [place] [address] [place] [address] Social History Tobacco Use Types Packs/Day Years [...] on filedocumented in this encounter Care Teams Social Worker Assistant Relationship Specialty Start Date End Date Arpita White MD PCP - General 99 07/22/18 [facility], Pcp PCP - General Internal Medicine 07/23/18 12/20/18 Martina Gonzalez MD PCP - General Internal Medicine 12/21/18 10/14/21 Darin Restrepo MD [address] [place] [address] PCP - General Internal Medicine 10/15/21 06/16/22 Sushma Jin NP [address] [place] [address] PCP - General Internal Medicine 06/17/22 09/04/22 Carolyn Skaggs MD [address] [place] [address] PCP - General Internal Medicine 09/05/22 11/11/23 Sushma Jin NP [address] [place] [address] PCP - General Internal Medicine 11/12/23 documented as of this encounter
--- OUTSIDE RECORDS SUMMARY | 2025-07-20 12:47 | XMS_ITS | Encounter Summary ---
Author Organization [facility] Address [address] [place] [address] Care Team Providers Care Loader Helper Name Role Phone Arpita White MD Primary Care [facility], Pcp Primary Care Provider [facility] Martina Diaz MD Primary Care Provider Unavail able Darin Restrepo MD Primary Care Provider [phone] Sushma Jin NP Primary Care Provider Aranza vailable Carolyn Skaggs MD Primary Care Prov ider Sushma Jin QUALITY TECHNICIAN Primary Care Provider Aranza vailable Encounter Details Date Type Department Care Team Description 12/26/2015 Drip Molder Report Medical Records [address] [place] [address] Blanca Foster MD Social History Tobacco Use Types Packs/Day Years [...] on filedocumented in this encounter Care Teams Loader Helper Relationship Specialty Start Date End Date Arpita White MD PCP - General 99 07/22/18 [facility], Pcp PCP - General Internal Medicine 07/23/18 12/20/18 Martina Gonzalez MD PCP - General Internal Medicine 12/21/18 10/14/21 Darin Restrepo MD [address] [place] [address] PCP - General Internal Medicine 10/15/21 06/16/22 Sushma Jin NP [address] [place] [address] PCP - General Internal Medicine 06/17/22 09/04/22 Carolyn Skaggs MD [address] [place] [address] PCP - General Internal Medicine 09/05/22 11/11/23 Sushma Jin NP [address] [place] [address] PCP - General Internal Medicine 11/12/23 documented as of this encounter
--- OUTSIDE RECORDS SUMMARY | 2025-07-20 12:47 | XMS_ITS | Encounter Summary ---
Author Organization [facility] Address [address] [place] [address] Care Team Providers Care Harness Worker Name Role Phone Martina Gonzalez MD Primary Care Provider Unavail able Darin Restrepo MD Primary Care Provider [phone] Sushma Jin NP Primary Care Provider Aranza vailable Carolyn Skaggs MD Primary Care Prov ider Sushma Jin SURVEY METHODOLOGIST Primary Care Provider Aranza vailable Encounter Details Date Type Department Care Team Description 08/09/2019 Sand Conditioner Report Medical Records [address] [place] [address] [place] Social History Tobacco Use Types Packs/Day Years [...] on filedocumented in this encounter Care Teams Harness Worker Relationship Specialty Start Date End Date Martina Gonzalez MD PCP - General Internal Medicine 12/21/18 10/14/21 Darin Restrepo MD [address] [place] [id number] PCP - General Internal Medicine 10/15/21 06/16/22 Sushma Jin NP [address] [place] [address] PCP - General Internal Medicine 06/17/22 09/04/22 Carolyn Skaggs MD [address] [place] [address] PCP - General Internal Medicine 09/05/22 11/11/23 Sushma Jin NP [address] [place] [address] PCP - General Internal Medicine 11/12/23 documented as of this encounter
--- OUTSIDE RECORDS SUMMARY | 2025-07-20 12:47 | XMS_ITS | Encounter Summary ---
Author Organization [facility] Address [address] [place] [address] Care Team Providers Care Pot Press Operator Name Role Phone Arpita White MD Primary [facility] Primary Care Provider [facility] Martina Diaz MD Primary Care Provider Unavail able Darin Restrepo MD Primary Care Provider [phone] Sushma Jin NP Primary Care Provider Aranza vailable Carolyn Skaggs MD Primary Care Prov ider Sushma Jin HAND WASHER Primary Care Provider Aranza vailable Encounter Details Date Type Department Care Team Description 04/25/2016 Train Control Electronic Technician Report Medical Records [address] [place] [address] Blanca Foster MD Social History Tobacco Use [...] on filedocumented in this encounter Care Teams Pot Press Operator Relationship Specialty Start Date End Date Arpita White MD PCP - General 99 07/22/18 [facility], Pcp PCP - General Internal Medicine 07/23/18 12/20/18 Martina Gonzalez MD PCP - General Internal Medicine 12/21/18 10/14/21 Darin Restrepo MD [address] [place] [address] PCP - General Internal Medicine 10/15/21 06/16/22 Sushma Jin NP [address] [place] [address] PCP - General Internal Medicine 06/17/22 09/04/22 Carolyn Skaggs MD [address] [place] [address] PCP - General Internal Medicine 09/05/22 11/11/23 Sushma Jin NP [address] [place] [address] PCP - General Internal Medicine 11/12/23 documented as of this encounter
--- OUTSIDE RECORDS SUMMARY | 2025-07-20 12:47 | XMS_ITS | Encounter Summary ---
Author Organization [facility] Address [address] [place] [address] Care Team Providers Care Dampener Operator Name Role Phone Arpita White MD Primary [facility] Primary Care Provider Unavail able Darin Restrepo MD Primary Care Provider [phone] Sushma Jin SALES OFFICE ADMINISTRATOR Primary Care Provider Aranza vailable Carolyn Skaggs MD Primary Care Prov ider Sushma Jin SALES OFFICE ADMINISTRATOR Primary Care Provider Aranza vailable Encounter Details Date Type Department Care Team Description 10/10/2015 Health Systems Analyst Report Medical Records [address] [place] [address] Blanca Foster MD Social History Tobacco Use [...] on filedocumented in this encounter Care Teams Dampener Operator Relationship Specialty Start Date End Date Arpita White MD PCP - General 99 07/22/18 [facility], Pcp PCP - General Internal Medicine 07/23/18 12/20/18 Martina Gonzalez MD PCP - General Internal Medicine 12/21/18 10/14/21 Darin Restrepo MD [address] [place] [address] PCP - General Internal Medicine 10/15/21 06/16/22 Sushma Jin NP [address] [place] [address] PCP - General Internal Medicine 06/17/22 09/04/22 Carolyn Skaggs MD [address] [place] [address] PCP - General Internal Medicine 09/05/22 11/11/23 Sushma Jin NP [address] [place] [address] PCP - General Internal Medicine 11/12/23 documented as of this encounter
--- OUTSIDE RECORDS SUMMARY | 2025-07-20 12:47 | XMS_ITS | Encounter Summary ---
Author Organization [facility] Address [address] [place] [address] Care Team Providers Care Research Contracts Supervisor Name Role Phone Arpita White MD Primary [facility] Primary Care Provider [facility] Martina Diaz MD Primary Care Provider Unavail able Darin Restrepo MD Primary Care Provider [phone] Sushma Jin NP Primary Care Provider Aranza vailable Carolyn Skaggs MD Primary Care Prov ider Sushma Jin LEATHER GOODS I ASSEMBLER Primary Care Provider Aranza vailable Encounter Details Date Type Department Care Team Description 04/29/2016 Bottom Cementer Report Medical Records [address] [place] [address] Blanca Foster MD Social History Tobacco Use [...] on filedocumented in this encounter Care Teams Research Contracts Supervisor Relationship Specialty Start Date End Date Arpita White MD PCP - General 99 07/22/18 [facility], Pcp PCP - General Internal Medicine 07/23/18 12/20/18 Martina Gonzalez MD PCP - General Internal Medicine 12/21/18 10/14/21 Darin Restrepo MD [address] [place] [address] PCP - General Internal Medicine 10/15/21 06/16/22 Sushma Jin NP [address] [place] [address] PCP - General Internal Medicine 06/17/22 09/04/22 Carolyn Skaggs MD [address] [place] [address] PCP - General Internal Medicine 09/05/22 11/11/23 Sushma Jin NP [address] [place] [address] PCP - General Internal Medicine 11/12/23 documented as of this encounter
--- OUTSIDE RECORDS SUMMARY | 2025-07-20 12:47 | XMS_ITS | Encounter Summary ---
Author Organization [facility] Address [address] [place] [address] Care Team Providers Care Employee Development Specialist Name Role Phone Arpita White MD Primary Care Provider [facility], Pcp Primary Care Provider Martina Caed MD Primary Care Provider Unavail Darin Ferrer MD Primary Care Provider [phone] Sushma Jin SERVICE MEMBER Primary Care Provider Aranza vailable Carolyn Skaggs MD Primary Care Prov ider Sushma Jin SERVICE MEMBER Primary Care Provider Aranza vailable Reason for Visit * Reason Comments E-prescribe Rx Request Encounter Details Date Type Department Care Team Description 11/25/2015 Refill Pediatrics - [address] [phone] Arpita White MD E-prescribe Rx Request Social [...] encounter Miscellaneous Notes * Telephone Encounter - Sushma Goldstein MD - 11/27/2015 10:51 AM EST Rx refill sent to pharmacy. Please notify family. * Telephone Encounter - Ben Anderson - 11/27/2015 9:09 AM EST When was patients last PE/WCC? 08/08/15 When is patients next PE/WCC scheduled? 08/08/16 Arpita White RX REQUEST WHEN MED IS ON THE LIST: All of the medications requested were on the CURRENT MEDS list Did you check the Pharmacy information above?: YES Indicate how soon the patient needs the script: BY THE END OF THE DAY Patient would like script to be: E-PRESCRIBED/FAXED TO PHARMACY Is the doctor here today?: NO Can the message wait until the doctor returns?: NO Has the patient been told that the prescription will not be filled until the end of the day? NO Arpita White Payor: [facility] MEDICAID / Plan: [place] MEDICAID HMO $0 [place] / Product Type: HMO [id number] documented in this encounter Plan of Treatment Not on file documented as of this encounter Visit Diagnoses Not on filedocumented in this encounter Care Teams Employee Development Specialist Relationship Specialty Start Date End Date Arpita White MD PCP - General 99 07/22/18 [facility] PCP - General Internal Medicine 07/23/18 12/20/18 Martina Gonzalez MD PCP - General Internal Medicine 12/21/18 10/14/21 Darin Restrepo MD [address] [place] [address] PCP - General Internal Medicine 10/15/21 06/16/22 Sushma Jin NP [address] [place] [address] PCP - General Internal Medicine 06/17/22 09/04/22 Carolyn Skaggs MD [address] [place] [address] PCP - General Internal Medicine 09/05/22 11/11/23 Sushma Jin NP [address] [place] [address] PCP - General Internal Medicine 11/12/23 documented as of this encounter
--- OUTSIDE RECORDS SUMMARY | 2025-07-20 12:47 | XMS_ITS | Clinical Summary ---
Author Organization [facility] Address [address] [place] [address] Care Team Providers Care Silver Designer Name Role Phone Sushma Jin NP Primary Care Provider Aranza vailable Allergies Active Allergy Reactions Severity Noted Date Comments Doxycycline Hyclate 10/23/2020 hives Cephalexin 10/23/2020 Burning sensation all over body. Penaten 02/20/2023 Penicillin G Hives/Urticaria High 02/17/2023 Pt stated had bad reaction. She had hives all over the body. Sulfa Drugs 03/06/2021 Medications Medication Sig Dispensed Refills Start Date End Date Status Riboflavin 100 MG Tab Take 2 Tabs by mouth 2 times daily. 120 Tab 5 08/08/2015 Active Magnesium Gluconate 250 MG Tab Take 1 Tab by mouth 2 Times Daily. 60 Tab 5 08/08/2015 Active sertraline (ZOLOFT) 50 MG tablet Take 50 mg by mouth daily. 0 10/10/2016 Active amphetamine-dextro amphetamine (ADDERALL XR) 20 MG 24 hr capsule 20 mg. ER 20MG Cap/ Takes one capsule by mouth every day 0 06/23/2017 Active clindamycin (CLINDAGEL) 1 % gel APPLY TO UNDERARM DAILY 30 g 5 07/06/2019 Active gabapentin (NEURONTIN) 300 MG capsule Take 1 Cap by mouth 2 times daily as needed. 0 11/13/2020 Active nystatin-triamcino lone (MYCOLOG) ointment Apply a thin layer to affected area twice daily x 2 weeks, then daily 15 g 0 12/05/2020 Active spironolactone (ALDACTONE) 25 MG tablet Take 1 tablet by mouth daily for 180 days. 90 tablet 3 07/25/2021 Active amlodipine (NORVASC) 10 MG tabletIndications: Primary hypertension TAKE 1 TABLET BY MOUTH EVERY DAY 30 tablet 5 11/28/2021 Active famotidine (PEPCID) 20 MG tablet TAKE 1 TABLET BY MOUTH EVERY DAY 30 Tablet 5 03/26/2022 Active levonorgestrel (MIRENA) 20 MCG/24HR IUDIndications:Enc ounter for removal and reinsertion of IUD 1 Each by Intrauterine route Once. 1 Each 0 07/31/2022 07/05/2027 Active buPROPion (WELLBUTRIN) 100 MG tablet Take 0.5 Tablets by mouth 2 times daily for 360 days. 30 Tablet 1 02/20/2023 Active Cholecalciferol (Vitamin D3) 1.25 MG (63367 UT) CapIndications:Vit salmon D deficiency Take 1 Capsule by mouth once a week. 13 Capsule 2 03/12/2023 Active ALBUTEROL SULFATE 108 (90 Base) MCG/ACT Aero Soln Inhale 2 Puffs into the lungs every 4 hours as needed for Wheezing for up to 30 days. 16 g 2 10/17/2023 Active albuterol (PROVENTIL) (2.5 MG/3ML) 0.083% nebulizer solution Take 1 Vial by nebulization every 4 hours as needed for Shortness of Breath for up to 30 days. 360 mL 1 10/17/2023 Active Emollient (Ointment Base) OintmentIndication s:Vulvodynia Apply 0.5 g topically 2 times daily. 5% gabapentin ointment Sig: Apply 0.5 g daily to affected area Patient phone number: [phone] (home) 30 g 1 11/13/2023 Active Fluticasone-Salmet yue (Wixela Inhub) 500-50 MCG/ACT AEROSOL POWDER,BREATH ACTIVATEDIndicatio ns:Moderate persistent asthma, unspecified whether complicated Inhale 1 Puff into the lungs 2 times daily for 30 days. 1 Each 11 02/24/2024 Active cloNIDine 0.3 MG/24HR PATCH WEEKLY Place 1 Patch onto the skin once a week. 13 Patch 3 03/10/2024 Active Active Problems Patient Care Coordination No te Formatting of this note is d ifferent from the original. If you or your child's teachers are noticing that Nena is demonstrating any of the following behaviors on a frequent basis, please share this with her doctor not paying attention daydreaming a lot not being able to fall asleep easily not listening being easily distracted form schoolwork or play forgetting things in constant motion, can't sit still squirming or fidgeting talking too much not being able to play quietly acting and speaking without thinking unable to wait for her turn interrupting others Nena's Care Goals In order to best manage your child's ADHD it is important to have clear care goals. These goals include: working with the school/teachers, other family members and adults who see the child regularly (coaches, music instructors, etc) to help manage the symptoms of ADHD meeting with a therapist regularly if this is part of your treatment plan Your Results and your Goals Your Result/Date of Completion Your Goal/How Often Wt Readings from Last 1 Encounters: 04/14/12 188 lb (85.276 kg) (99.11%) Maintain Healthy Weight Your Action Plan continue with counseling Educational Resources Center for Disease Control (www.cdc.gov/ncbddd/adhd/) [employer] (www.aap.org/healthtopics/adhd.cfm) National Resource Center for ADHD (www.cgos1mpww.org) Children and Adults with Attention Deficit Hyperactivity Disorder (www.júnior.org) [place] [facility] Access [facility] (www.[facility].[place]) This care plan was created in collaboration with Nena Zafar on 04/14/2012 Problem Noted Date Chlamydia 11/14/2023 PCOS (polycystic ovarian syndrome) 05/30 Last Assessment & Plan: Continue with regulation with Mirena in place. Irregular menses 09/18/2021 Last Assessment & Plan: I explained that it is likely the Tiffany which has caused her irregular menses recently, but that she still could have PCOS based on hirsutism and obesity with hypertension at such a young age. She agreed to have labs today. . High-tone pelvic floor dysfunction 09/18 Last Assessment & Plan: Improved, but not resolved. Encouraged to call and get an appt with pelvic floor PT. She agrees. She will continue dilation at home for now. Lab test negative for COVID-19 virus Localized provoked vulvodynia 12/06/2020 Last Assessment & Plan: Continue topical gabepentin BID. Well controlled. Refilled. COVID-19 virus detected 11/13/2020 Morbid obesity with BMI of 60.0-69.9, ad ult 11/13/2020 Last Assessment & Plan: I strongly encouraged Nena to consider returning to weight management clinic for counseling on options including surgical and medical management. I explained that if she plans for in the future, which she mentioned, she should definitely plan to get to a normal BMI or lose a substantial amount of weight before this would be considered safe. She voiced understanding and agreed to reach out. Lichen simplex chronicus 10/11/2020 Last Assessment & Plan: Resolved. Continue preventive Mycolog every other day. Elevated urine levels of catecholamines 11/15/2019 Overview: S/p Ct abdomen and pelvis normal no adenoma Essential hypertension 08/31/2019 Overview: Elevated catecholamines of dopamine 24-hour urine sample pending Hirsutism 12/11/2017 Overview: 12/11: Ped endo- due to increase androgens and obesity- recommend wt loss IUD and spironolactone; F/U 6 mon Chest pain 12/06/2017 Overview: 11/25/17: at rest- [facility]: normal EKG, troponin, Lytes, BUN CBCD, HCG, CXR - MSK or anxiety related as possiblities AIDAN on CPAP 12/30/2016 Overview: sleep study + -15-16; CPAP started 11-08 217: adj to CPAP Last Assessment & Plan: Call the people who fitted you for the CPAP to get help in being able to use it nightly. Is important to help with headaches and overall health. Anxiety 11/08/2016 Overview: Med provider Dr Riley through Clinical support options: uses sertraline daily and inderal as needed for performance anxiety and clonidine for sleep. Difficulty with transition o f short term memory to terminal operations supervisor memory and working memory inefficiency 12/21/2014 Overview: Updated Core testing report 10-05-14- WISC- IV full scale = 83 = low average Communication disability 12/21/2014 Overview: 11: 3yr reevaluation CORE Menorrhagia 07/14/2012 Overview: Follows with [facility], has tiffany hahn Last Assessment & Plan: Call ped jarrell for follow up appt. Asthma 06/20/2006 Overview: Dr. Cummins; singulair , advair 04-14-12: no controllers; no recent F/U Dr. Cummins Asthma Control Test Total Score: 16 started flovent 220 2 p daily 04-30-13: Asthma Control Test Total Score: 19 Interpetation of Score: < or equal to 19 Intervention Recommended ACT 06-06 = 20 05-04-15: [facility] - asthma exacerbation as of 08-08- no prob since 03-27-16: [facility] 5 d pred 40mg As [...] appointment. Attention deficit hyperactivity disorder (ADHD) 06/20/2006 Overview: inattentive -concerta 04-14-12: not using any med As of 04-30-13: no meds 10-07 Updated CORE eval confirms dx of ADHD- accommodations in [employer], [employer], [employer] and technology- full inclusion 03-07-15: normal EKG- done as baseline per stim use 08-08-15; Alanna Echeverria- wellbutrin started 04-0711-08-16: Dr. Terry Riley- wellbutrin XR 150 mg 11/09: continues with Dr. Riley- is now on adderall and zoloft and takes propranolol if performance anxiety- has not taken it Last Assessment & Plan: Continue seeing Dr. Riley. Let him know you have asthma. Migraine with and without aura Overview: Follows with Dr Campbell. On verapamil, topamax and fioricet for migraines Last Assessment & Plan: Continue with recommendations per neurology. Ask about using continuous control pill to prevent headaches at times of periods. Central auditory processing disorder Overview: according to [facility] hearing report dated 01-15-13 Report from 02-15-13- consistent with a Central Auditory Processing Disorder.- likely fixes ( maturation of auditory system typically completed by age 11 yr 12-16: same Last Assessment & Plan: Let me know if you need any assistance. Exotropia of left eye Overview: 10-07 surgery for strabismus bilaterally 08-08: doing well 11-08: due for follow up- 11/09: due for F/U Last Assessment & Plan: Call for eye doctor follow up GERD (gastroesophageal reflux disease) Last Assessment & Plan: Continue to avoid foods that give you heartburn and use ranitidine if needed. If needing to use all the time follow up. Resolved Problems Problem Noted Date Resolved Date Vulvar burning 10/03/2020 11/13/2023 Vaginal burning 12/21/2019 11/13/2023 Last Assessment & Plan: Return for biopsy. Dyspareunia due to medical condition in female 0 12/21/2019 11/13/2023 Last Assessment & Plan: Continues to improve with ongoing topical Gabapentin BID and self dilation at home. I suspect it would improve further with some pelvic floor PT. Obesity, morbid, BMI 40.0-49.9 03/27/2017 1 01/14/2020 Acanthosis nigricans 08/08/2015 05/28/2019 Last Assessment & Plan: Obtain non fasting labs today including hemoglobin A1C Hydradenitis 07/14/2012 11/08/2016 Overview: 6-7-13: better? But was referred to Dr. Unger for second opinion 9-15: all healed 12-16: resolved Last Assessment & Plan: Keep appointment with Dr. Unger. Immunizations Name Administration Dates Next Due COVID-19 (Pfizer) 09/04/2021,01/29/2021,01/08/20 21 COVID-19 (Pfizer) Pt Reported 01/29/2021, 021 DTaP 05/01/2004, 0,1999,09/04,1999 HIB 06/18/2000, 0,1999,06/01 HPV (Gardasil) 04/30/2013,07/14/2012,04/14/2012 Hepatitis B > 19yrs 07/12/2020,02/09/2020,2019 Hepatitis B-3 Dose (<19yrs) 1999, 9,1999 Influenza (> 6 Months) 09/04/2021,2018,09/05/2017,09/13,12/22/2009,09/27/2008,09/15/2007 ,09/08/2004 Influenza (>6 Months) Split Preservative Free 08/08/2015 Influenza Flu (PT Reported) 10/11/2016 Influenza H1N1 Pandemic Flu Vaccine 12/22/2009 Influenza Vaccine-preservati ve Free-quadrivalent 4 Years 10/06/2023 MMR (Teuqmyz-Mycdj-Qhvhsnv) 04/27/2003, 0 Meningococcal (Menactra) 08/08/2015,04/14/2012 PPD-RBMG 11/10/2019 Pneumococcal Conjugate PCV-13 08/31/2019 Pneumococcal(Pedi) Conjugate PCV-7 04/14/2001, Polio (IPV) 05/01/2004, 0,1999,06/01 Rabies-Vaccine IM 04/09/2006,03/15/2006 Tdap 04/11/2011 Varicella 12/22/2009,06/12/2000 Family History Medical History Relation Name Comments Diabetes Maternal Grandfather Hypertension Maternal Grandfather RI Maternal Grandfather Cancer of the Breast Maternal Grandmother Hypertension Maternal Grandmother Asthma Mother epilepsy Mother related to lupu s lupus Mother migraines Mother adhd Other cousin Relation Name Status Comments Father Alive 1967 jennifer Maternal Grandfather Maternal Grandmother Mother Alive 1967 mimi Other Sister Alive 1984 leonie Social History Tobacco Use Types Packs/Day Years Used Date Smoking Tobacco: Never Smokeless Tobacco: Never Alcohol Use Standard Drinks/Week Comments Yes 1 (1 standard drink = 0.6 oz pur e alcohol) Ocassioanally Sex Assigned at Date Recorded Female 03/19/2022 3:55 PM E DT Job Start Date Occupation Industry Not on file Not on file Not on file Last Filed Vital Signs Vital Sign Reading Time Taken Comments Blood Pressure 145/81 03/10/2024 4:07 PM EDT Pulse 101 03/10/2024 4:07 PM EDT Temperature 36.2 C (97.2 F) 02/24/2024 9:05 AM EDT Respiratory Rate 16 02/24/2024 9:05 AM EDT Oxygen Saturation 98% 02/24/2024 9:05 AM EDT Inhaled Oxygen Concentration - - Weight 170.1 kg (375 lb) 03/10/2024 4:07 PM EDT Height 162.6 cm (5' 4 ) 02/24/2024 9:05 AM EDT Body Mass Index 64.37 02/24/2024 9:05 AM EDT Plan of Treatment Health Maintenance Due Date Last Done Comments Covid-19 Vaccine (2022-12 4 season) 2024 09/04/2021, 01/29/2021, 01/29/2021, Additional history exists DEPRESSION SCREEN 10/06/2024 10/06/2023, , 05/31/2019 BMI CHECK/ADVISE 11/24/2024 03/10/2024, , 03/12/2023, Additional history exists DEPRESSION SCREENING/FOLLOWUP 11/24/2024 02/20/2023, 05/31/2019 SOCIAL NEEDS SCREENING 11/24/2024 , 10/06/2023, 05/31/2019 INFLUENZA (#1) 2025 10/06/2023, 08/24, 08/31/2019 (External Completion), Additional history exists CERVICAL CANCER SCREENING 09/05/2025 09/05/2022 CHOLESTEROL SCREENING 12/06/2027 12/06/2022 , 12/14/2021, 09/19/2021, Additional history exists BASELINE HEALTH EXAM 18-39 10/06/202810/06, 02/27/2022, 08/08/2021, Additional history exists DTAP/TDAP/TD (8 - Td or Tdap) 04/27/2031, 04/11/2011, 05/01/2004, Additional history exists PNEUMOCOCCAL VACCINE FOR HIG H RISK PATIENTS (#2) 2064 08/31/2019, 08/31/2019 Care Teams Silver Designer Relationship Specialty Start Date End Date Sushma Jin NP PCP - General Internal Medicine 11/12/23
--- OUTSIDE RECORDS SUMMARY | 2025-07-20 12:47 | XMS_ITS | Encounter Summary ---
Author Organization [facility] Address [address] [place] [address] Care Team Providers Care Coding Team Lead Name Role Phone Arpita White MD Primary Care Provider [facility] anastasiia Barone, Pcp Primary Care Provider [facility] MD Primary Care Provider Unavail Darin Ferrer MD Primary Care Provider Sushma Jin CANOE MAKER Primary Care Provider Aranza vailable Carolyn Skaggs MD Primary Care Prov ider Sushma Jin CANOE MAKER Primary Care Provider Aranza vailable Encounter Details Date Type Department Care Team Description 08/01/2017 Sheriff Deputy Report Medical Records [address] [place] [id number] Cameron Jones Social History Tobacco Use Types [...] on filedocumented in this encounter Care Teams Coding Team Lead Relationship Specialty Start Date End Date Arpita White MD PCP - General 99 07/22/18 [facility], Pcp PCP - General Internal Medicine 07/23/18 12/20/18 Martina Gonzalez MD PCP - General Internal Medicine 12/21/18 10/14/21 Darin Restrepo MD [address] [place] [address] PCP - General Internal Medicine 10/15/21 06/16/22 Sushma Jin NP [address] [place] [address] PCP - General Internal Medicine 06/17/22 09/04/22 Carolyn Skaggs MD [address] [place] [address] PCP - General Internal Medicine 09/05/22 11/11/23 Sushma Jin NP [address] [place], [place] [id number] PCP - General Internal Medicine 11/12/23 documented as of this encounter
--- OUTSIDE RECORDS SUMMARY | 2025-07-20 12:47 | XMS_ITS | Encounter Summary ---
Author Organization [facility] Address [address] [place] [address] Care Team Providers Care Pulper Tender Name Role Phone Arpita White MD Primary Care Provider Ann Barone, Pcp Primary Care Provider Martina Cade MD Primary Care Provider Unavail Darin Ferrer MD Primary Care Provider [phone] Sushma Jin GRID OPERATOR Primary Care Provider Aranza vailable Carolyn Skaggs MD Primary Care Prov ider Sushma Jin GRID OPERATOR Primary Care Provider Aranza vailable Reason for Visit * Reason Comments E-prescribe Rx Request Encounter Details Date Type Department Care Team Description 04/01/2012 Refill Pediatrics - [address] [address] Arpita White MD E-prescribe Rx Request Social [...] on filedocumented in this encounter Care Teams Pulper Tender Relationship Specialty Start Date End Date Arpita White MD PCP - General 99 07/22/18 [facility], Pcp PCP - General Internal Medicine 07/23/18 12/20/18 Martina Gonzalez MD PCP - General Internal Medicine 12/21/18 10/14/21 Darin Restrepo MD [address] [place] [address] PCP - General Internal Medicine 10/15/21 06/16/22 Sushma Jin NP [address] [place] [address] PCP - General Internal Medicine 06/17/22 09/04/22 Carolyn Skaggs MD [address] [place] [address] PCP - General Internal Medicine 09/05/22 11/11/23 Sushma Jin NP [address] [place], [place] [id number] PCP - General Internal Medicine 11/12/23 documented as of this encounter
--- OUTSIDE RECORDS SUMMARY | 2025-07-20 12:47 | XMS_ITS | Encounter Summary ---
Author Organization [facility] Address [address] [place] [address] Care Team Providers Care Director [facility] Name Role Phone Martina Gonzalez MD Primary Care Provider Darin Glass MD Primary Care Provider [phone] Sushma Jin SEISMIC PROSPECTING OBSERVER Primary Care Provider Aranza vailable Carolyn Skaggs MD Primary Care Prov ider Sushma Jin SEISMIC PROSPECTING OBSERVER Primary Care Provider Aranza vailable Encounter Details Date Type Department Care Team Description 07/21/2020 Refill OBGYN - [place] [address] [place] [address] Yeni Lynch MD [address] [place] [id number] Social History Tobacco Use Types Packs/Day Years [...] encounter Miscellaneous Notes * Telephone Encounter - Vicky Zarate L.P.N. - 07/21/2020 9:36 AM EDT Pt's last appt with you was 06/13/20. She has an upcoming appt 09/15/20 as well. documented in this encounter Plan of Treatment Not on file documented as of this encounter Visit Diagnoses Not on filedocumented in this encounter Care Teams Director [facility] Sclerosis Center Relationship Specialty Start Date End Date Martina Gonzalez MD PCP - General Internal Medicine 12/21/18 10/14/21 Darin Restrepo MD [address] [place] [address] PCP - General Internal Medicine 10/15/21 06/16/22 Sushma Jin NP [address] [place] [address] PCP - General Internal Medicine 06/17/22 09/04/22 Carolyn Skaggs MD [address] [place] [address] PCP - General Internal Medicine 09/05/22 11/11/23 Sushma Jin NP [address] [place] [address] PCP - General Internal Medicine 11/12/23 documented as of this encounter
--- OUTSIDE RECORDS SUMMARY | 2025-07-20 12:48 | XMS_ITS | Clinical Summary ---
Author Organization [address] Address [address] [place] [phone] Phone Care Team Providers Care Charter Boat Operator Name Role Phone Unavailable Primary Care Provider Unavailabl e Allergies Active Allergy Reactions Criticality Noted Date Comments Cephalexin 10/23/2020 Burning sensation all over body. Doxycycline Hyclate 10/23/2020 hives Penaten 02/20/2023 Penicillin G Hives High 02/17/2023 Pt stated had bad reaction. She had hives all over the body. Sulfa (Sulfonamide Antibiotics) 03/06/2021 Medications cloNIDine ([id number]-[id number]-2 ) 0.3 mg/[address] 1 Patch onto the skin once a week. 4 Active emollient comb no.2, bulk, ointment Apply 0.5 g topically 2 times daily. 5% gabapentin ointment Sig: Apply 0.5 g daily to affected area Patient phone number: [phone] (home) 3 Active cholecalciferol (VITAMIN D-3) 1,250 [...] processing disorder 08/27/2024 Overview (08/27/2024): according to [facility] hearing report dated 01-15-13 Report from [...] obesity with BMI of 6 0.0-69.9, adult ([facility] V24, [facility] V28) 08/27/2024 Chlamydia 11/14/2023 PCOS [...] Recommended ACT -14 = 20 05-04-15: [facility] - asthma exacerbation as of 08-08- no prob since 03-27-16: seen [facility] 5 d pred 40mg As [...] eval confirms dx of ADHD- accommodations in [employer], [employer], [employer] technology- full inclusion 03-07-15: normal [...] (Infanrix) 6wks to less than 7yo ,07/17/2000,1999,09/04,1999 MXiZ-CBN-HFP (Pentacel) 2mo to less than 5yo 06/18/2000,1999,1999,06/01 H1N1 Inj Preservative Free 12/22/2009 HPV, Quadrivalent 04/30/2013,07/14/2012,04/14/20 12 Hepatitis B (Ucwacfq-R-Yblhj , Recombivax HB-Adult) 19yo and older 07/12/2020,02/09/2020,01/05/2020 [...] 04/27/2003,06/12/2000 Meningococcal MCV4P 08/08/2015,04/14/2012 PPD Test 11/10/2019 quitchen SARS-CoV-2 COVID-19, mRNA, LNP-S, preservative free 09/04/2021 [...] TUBES OTHER SURGICAL HISTORY age 1.5yr PROCEDURE: NH BRONCHOSCOPY W/TRANSBRONCHIAL LUNG BX 1 LOBE EYE SURGERY PROCEDURE: HISTORICAL EYE SURGERY Medical History Medical History Date Comments Essential hypertension 08/31/2019 DX:Essent ial hypertension Migraine with aura DX:Migraine w ith aura; COMMENT: Naprosyn 04-14-12: worsening- started amitriptyline 25 mg hs Saw neurologist and is on topamax- now 100 mg 08-08-15: ped neuro- verapamil 40 mg bid in addition to [id number] mg hs; fioricet PRN, riboflavin, magnesium 10-10-15: [...] 2:00 PM EST Office Visit Nephrology - [place] [address] [place] [address] Christopher Pollard MD [address] [place] [address] Health Maintenance Due Date Last [...] Annual BMP Blood Test (01/22/2024) Pathologist [facility] Annual BMP Blood Test abstracted [facility] Provider MD HEALTH MAINTENANCE Final Result * Gonorrhea/Chlamydia Screening (11/13/2023) Pathologist [facility] Gonorrhea/Chla mydia Screening abstracted [facility] Provider MD HEALTH MAINTENANCE Final Result * Depression Screening (10/06/2023) Pathologist [facility] Depression Screening abstracted [facility] Provider MD HEALTH MAINTENANCE Final Result * Lipid panel (12/06/2022) [facility] LDL/HDL Ratio 2 0 - 4 Triglycerides 71 0 - 150 mg/dL Cholesterol 117 0 - 200 mg/dL HDL 48 >=40 mg/dL LDL Cholesterol 55 0 - 100 mg/dL Blood Venous blood specimen / Unknown us Historical Provider LAB BLOOD ORDERABLES Praveena l Result * Pap smear (09/05/2022) 09/05/2022 Narrative HISTORICAL TESTING LAB RESULTING AGENCY - 09/12/2022 7:30 AM EDT [id number] THINPREP PAP, IMAGED: NEGATIVE FOR SQUAMOUS INTRAEPITHELIAL [...]
--- OUTSIDE RECORDS SUMMARY | 2025-07-20 12:48 | XMS_ITS | Encounter Summary ---
Author Organization [facility] Address [address] [place] [address] Care Team Providers Care Oven Builder Name Role Phone Arpita White MD Primary Care Provider Shanique Mccarthy MD Primary Care Provider Brandee [facility] Pcp Primary Care Provider Martina Cade MD Primary Care Provider Unavail Darin Ferrer MD Primary Care Provider [phone] Sushma Jin VP ANCILLARY Primary Care Provider Aranza vailable Carolyn Skaggs MD Primary Care Prov ider Sushma Jin VP ANCILLARY Primary Care Provider Aranza vailable Encounter Details Date Type Department Care Team Description 1999 [facility] - [address] [address] Arpita White MD SINGLE LIVEBORN, BORN IN HOSPITAL, DELIVERED WITHOUT MENTION OF DELIVERY Social History Tobacco Use Types Packs/Day Years Used Date Smoking Tobacco: Never Assessed Sex Assigned at Date Recorded Female 03/19/2022 3:55 PM E DT Job Start Date Occupation Industry Not on file Not on file Not on file documented as of this encounter Plan of Treatment Not on file documented as of this encounter Visit Diagnoses Diagnosis Single liveborn, born in hospital, delivered without mention of delivery documented in this encounter Care Teams Oven Builder Relationship Specialty Start Date End Date Arpita White MD PCP - General 99 07/22/18 Shanique Ayala MD PCP - General 1999 99 [facility] Pcp PCP - General Internal Medicine 07/23/18 12/20/18 Martina Gonzalez MD PCP - General Internal Medicine 12/21/18 10/14/21 Darin Restrepo MD [address] [place] [address] PCP - General Internal Medicine 10/15/21 06/16/22 Sushma Jin NP [address] [place] [address] PCP - General Internal Medicine 06/17/22 09/04/22 Carolyn Skaggs MD [address] [place] [address] PCP - General Internal Medicine 09/05/22 11/11/23 Sushma Jin NP [address] [place] [address] PCP - General Internal Medicine 11/12/23 documented as of this encounter
--- OUTSIDE RECORDS SUMMARY | 2025-07-20 12:48 | XMS_ITS | Encounter Summary ---
Author Organization [facility] Address [address] [place] [address] Care Team Providers Care Fireproof Door Assembler Name Role Phone Arpita White MD Primary Care Provider Shanique Mccarthy MD [facility] Primary Care Provider Martina Cade MD Primary Care Provider Unavail Darin Ferrer MD Primary Care Provider [phone] Sushma Jin CUSTOMER RETENTION SPECIALIST Primary Care Provider Aranza vailable Carolyn Skaggs MD Primary Care Prov ider Sushma Jin CUSTOMER RETENTION SPECIALIST Primary Care Provider Aranza vailable Encounter Details Date Type Department Care Team Description 1999 [facility] - [address] [address] Ninfa Parra [address] [place] [id number] DRUG WITHDRAWAL SYNDROME IN Social History Tobacco Use Types Packs/Day Years Used Date Smoking Tobacco: Never Assessed Sex Assigned at Date Recorded Female 03/19/2022 3:55 PM E DT Job Start Date Occupation Industry Not on file Not on file Not on file documented as of this encounter Plan of Treatment Not on file documented as of this encounter Visit Diagnoses Diagnosis Drug withdrawal syndrome in documented in this encounter Care Teams Fireproof Door Assembler Relationship Specialty Start Date End Date Arpita White MD PCP - General 99 07/22/18 Shanique Ayala MD PCP - General 1999 99 [facility], Pcp PCP - General Internal Medicine 07/23/18 12/20/18 Martina Gonzalez MD PCP - General Internal Medicine 12/21/18 10/14/21 Darin Restrepo MD [address] [place] [address] PCP - General Internal Medicine 10/15/21 06/16/22 Sushma Jin NP [address] [place] [address] PCP - General Internal Medicine 06/17/22 09/04/22 Carolyn Skaggs MD [address] [place] [address] PCP - General Internal Medicine 09/05/22 11/11/23 Sushma Jin NP [address] [place], [place] [id number] PCP - General Internal Medicine 11/12/23 documented as of this encounter
--- OUTSIDE RECORDS SUMMARY | 2025-07-20 12:48 | XMS_ITS | Encounter Summary ---
Author Organization [facility] Address [address] [place] [address] Care Team Providers Care Licensed Psychologist Director Name Role Phone Community, Pcp Primary Care Provider Martina Cade MD Primary Care Provider Unavail able Darin Restrepo MD Primary Care Provider Sushma Jin LINUX KERNEL ENGINEER Primary Care Provider Aranza vailable Carolyn Skaggs MD Primary Care Prov ider Sushma Jin LINUX KERNEL ENGINEER Primary Care Provider Aranza vailable Encounter Details Date Type Department Care Team Description 07/31/2018 Dominatrix Report Medical Records [address] [place] [address] Cameron Jones Social History Tobacco Use Types [...] on filedocumented in this encounter Care Teams Licensed Psychologist Director Relationship Specialty Start Date End Date Community, Pcp PCP - General Internal Medicine 07/23/18 12/20/18 Martina Gonzalez MD PCP - General Internal Medicine 12/21/18 10/14/21 Darin Restrepo MD [address] [place] [address] PCP - General Internal Medicine 10/15/21 06/16/22 Sushma Jin NP [address] [place] [address] PCP - General Internal Medicine 06/17/22 09/04/22 Carolyn Skaggs MD [address] [place] [address] PCP - General Internal Medicine 09/05/22 11/11/23 Sushma Jin NP [address] [place] [address] PCP - General Internal Medicine 11/12/23 documented as of this encounter
--- OUTSIDE RECORDS SUMMARY | 2025-07-20 12:48 | XMS_ITS | Encounter Summary ---
Author Organization [facility] Address [address] [place] [address] Care Team Providers Care Shell Shop Supervisor Name Role Phone Martina Gonzalez MD Primary Care Provider Unavail able Darin Restrepo MD Primary Care Provider [phone] Sushma Jin WHITTLING ROOM OPERATOR Primary Care Provider Aranza vailable Carolyn Skaggs MD Primary Care Prov ider Sushma Jin WHITTLING ROOM OPERATOR Primary Care Provider Aranza vailable Encounter Details Date Type Department Care Team Description 03/12/2019 Western Felt Hat Blocker Report Medical Records [address] [place] [address] Cameron Jones Social History Tobacco Use Types [...] on filedocumented in this encounter Care Teams Shell Shop Supervisor Relationship Specialty Start Date End Date Martina Gonzalez MD PCP - General Internal Medicine 12/21/18 10/14/21 Darin Restrepo MD [address] [place] [id number] PCP - General Internal Medicine 10/15/21 06/16/22 Sushma Jin NP [address] [place] [address] PCP - General Internal Medicine 06/17/22 09/04/22 Carolyn Skaggs MD [address] [place] [address] PCP - General Internal Medicine 09/05/22 11/11/23 Sushma Jin NP [address] [place] [address] PCP - General Internal Medicine 11/12/23 documented as of this encounter
--- OUTSIDE RECORDS SUMMARY | 2025-07-20 12:48 | XMS_ITS | Encounter Summary ---
Author Organization [facility] Address [address] [place] [address] Care Team Providers Care Ground Hand Name Role Phone Arpita White MD Primary Care Provider Shanique Mccarthy MD Primary Care Provider Brandee cano [facility], Pcp Primary Care Provider Martina Cade MD Primary Care Provider Unavail Darin Ferrer MD Primary Care Provider [phone] Sushma Jin CYBER FORENSIC SPECIALIST Primary Care Provider Aranza vailable Carolyn Skaggs MD Primary Care Prov ider Sushma Jin CYBER FORENSIC SPECIALIST Primary Care Provider Aranza vailable Encounter Details Date Type Department Care Team Description 1999 [facility] - [address] [address] Live Orellana MD DRUG WITHDRAWAL SYNDROME IN Social History Tobacco [...] in documented in this encounter Care Teams Ground Hand Relationship Specialty Start Date End Date Arpita White MD PCP - General 99 07/22/18 Shanique Ayala MD PCP - General 1999 99 [facility], Pcp PCP - General Internal Medicine 07/23/18 12/20/18 Martina Gonzalez MD PCP - General Internal Medicine 12/21/18 10/14/21 Darin Restrepo MD [address] [place] [address] PCP - General Internal Medicine 10/15/21 06/16/22 Sushma Jin NP [address] [place] [address] PCP - General Internal Medicine 06/17/22 09/04/22 Carolyn Skaggs MD [address] [place] [address] PCP - General Internal Medicine 09/05/22 11/11/23 Sushma Jin NP [address] [place] [address] PCP - General Internal Medicine 11/12/23 documented as of this encounter
--- OUTSIDE RECORDS SUMMARY | 2025-07-20 12:48 | XMS_ITS | Encounter Summary ---
Author Organization [facility] Address [address] [place] [address] Care Team Providers Care Corn Chip Maker Name Role Phone Arpita White MD Primary Care Provider Shanique Mccarthy MD [facility] Primary Care Provider Martina Cade MD Primary Care Provider Unavail Darin Ferrer MD Primary Care Provider [phone] Sushma Jin MOTOR EQUIPMENT CAPTAIN Primary Care Provider Aranza vailable Carolyn Skaggs MD Primary Care Prov ider Sushma Jin MOTOR EQUIPMENT CAPTAIN Primary Care Provider Aranza vailable Encounter Details Date Type Department Care Team Description 1999 [facility] - [address] [id number] Alecia Duarte [address] [place] [address] DRUG WITHDRAWAL SYNDROME IN Social History Tobacco [...] in documented in this encounter Care Teams Corn Chip Maker Relationship Specialty Start Date End Date Arpita White MD PCP - General 99 07/22/18 Shanique Ayala MD PCP - General 1999 99 [facility]placed [facility], Pcp PCP - General Internal Medicine 07/23/18 12/20/18 Martina Gonzalez MD PCP - General Internal Medicine 12/21/18 10/14/21 Darin Restrepo MD [address] [place] [address] PCP - General Internal Medicine 10/15/21 06/16/22 Sushma Jin NP [address] [place] [address] PCP - General Internal Medicine 06/17/22 09/04/22 Carolyn Skaggs MD [address] [place] [address] PCP - General Internal Medicine 09/05/22 11/11/23 Sushma Jin NP [address] [place], [place] [phone] PCP - General Internal Medicine 11/12/23 documented as of this encounter
--- OUTSIDE RECORDS SUMMARY | 2025-07-20 12:48 | XMS_ITS | Encounter Summary ---
Author Organization [facility] Address [address] [place] [address] Care Team Providers Care Splicing Supervisor Name Role Phone Arpita White MD Primary Care Provider Shanique Mccarthy MD Primary Care Provider Brandee cano [facility], Pcp Primary Care Provider Martina Cade MD Primary Care Provider Unavail Darin Ferrer MD Primary Care Provider [phone] Sushma Jin NEUROPSYCHIATRIST Primary Care Provider Aranza vailable Carolyn Skaggs MD Primary Care Prov ider Sushma Jin NEUROPSYCHIATRIST Primary Care Provider Aranza vailable Encounter Details Date Type Department Care Team Description 1999 [facility] [place] [address] [place] [address] Natasha Campbell MD DRUG WITHDRAWAL SYNDROME IN Social History [...] in documented in this encounter Care Teams Splicing Supervisor Relationship Specialty Start Date End Date Arpita White MD PCP - General 99 07/22/18 Shanique Ayala MD PCP - General 1999 99 [facility], Pcp PCP - General Internal Medicine 07/23/18 12/20/18 Martina Gonzalez MD PCP - General Internal Medicine 12/21/18 10/14/21 Darin Restrepo MD [address] [place] [address] PCP - General Internal Medicine 10/15/21 06/16/22 Sushma Jin NP [address] [place] [address] PCP - General Internal Medicine 06/17/22 09/04/22 Carolyn Skaggs MD [address] [place] [address] PCP - General Internal Medicine 09/05/22 11/11/23 Sushma Jin NP [address] [place], [place] [phone] PCP - General Internal Medicine 11/12/23 documented as of this encounter
--- OUTSIDE RECORDS SUMMARY | 2025-07-20 12:48 | XMS_ITS | Encounter Summary ---
Author Organization [facility] Address [address] [place] [address] Care Team Providers Care Store Promoter Name Role Phone Arpita White MD Primary Care Provider Shanique Mccarthy MD Primary Care Provider Brandee cano [facility], Pcp Primary Care Provider Martina Cade MD Primary Care Provider Unavail Darin Ferrer MD Primary Care Provider [phone] Sushma Jin VOCATIONAL TEACHER Primary Care Provider Aranza vailable Carolyn Skaggs MD Primary Care Prov ider Sushma Jin VOCATIONAL TEACHER Primary Care Provider Aranza vailable Encounter Details Date Type Department Care Team Description 1999 [facility] - [address] [address] Live Orellana MD Social History Tobacco Use Types Packs/Day [...] on filedocumented in this encounter Care Teams Store Promoter Relationship Specialty Start Date End Date Arpita White MD PCP - General 99 07/22/18 Shanique Ayala MD PCP - General 1999 99 [facility], Pcp PCP - General Internal Medicine 07/23/18 12/20/18 Martina Gonzalez MD PCP - General Internal Medicine 12/21/18 10/14/21 Darin Restrepo MD [address] [place] [address] PCP - General Internal Medicine 10/15/21 06/16/22 Sushma Jin NP [address] [place] [address] PCP - General Internal Medicine 06/17/22 09/04/22 Carolyn Skaggs MD [address] [place] [address] PCP - General Internal Medicine 09/05/22 11/11/23 Sushma Jin NP [address] [place], [place] [id number] PCP - General Internal Medicine 11/12/23 documented as of this encounter
--- OUTSIDE RECORDS SUMMARY | 2025-07-20 12:48 | XMS_ITS | Encounter Summary ---
Author Organization [facility] Address [address] [place] [address] Care Team Providers Care Accounts Receivable Representative Name Role Phone Arpita White MD Primary Care Provider Shanique Mccarthy MD Primary Care Provider Brandee [facility] Pcp Primary Care Provider Martina Cade MD Primary Care Provider Unavail Darin Ferrer MD Primary Care Provider [phone] Sushma Jin RN SURGICAL PCU Primary Care Provider Aranza vailable Carolyn Skaggs MD Primary Care Prov ider Sushma Jin RN SURGICAL PCU Primary Care Provider Aranza vailable Encounter Details Date Type Department Care Team Description 1999 [facility] - [address] [address] Shanique Ayala MD SINGLE LIVEBORN, BORN IN HOSPITAL, DELIVERED [...] delivery documented in this encounter Care Teams Accounts Receivable Representative Relationship Specialty Start Date End Date Arpita White MD PCP - General 99 07/22/18 Shanique Ayala MD PCP - General 1999 99 [facility], Pcp PCP - General Internal Medicine 07/23/18 12/20/18 Martina Gonzalez MD PCP - General Internal Medicine 12/21/18 10/14/21 Darin Restrepo MD [address] [place] [address] PCP - General Internal Medicine 10/15/21 06/16/22 Sushma Jin NP [address] [place] [address] PCP - General Internal Medicine 06/17/22 09/04/22 Carolyn Skaggs MD [address] [place] [address] PCP - General Internal Medicine 09/05/22 11/11/23 Sushma Jin NP [address] [place], [place] [phone] PCP - General Internal Medicine 11/12/23 documented as of this encounter
== END 2025-07-20 12:34 | disposition home or self-care (01) ==
LOC: HO.HBST 12:05
PROVIDERS: Visit Provider Counselor Mental Health
DX: F41.9 Anxiety disorder, unspecified (principal); Z86.59 Personal history of other mental and behavioral disorders; Z98.84 Bariatric surgery status
CPT/HCPCS: 90832

== ENCOUNTER 2025-07-21 14:45 | Outpatient (AMB) | payer MEDICARE, MEDICAID, SELFPAY ==
--- NOTE | 2025-07-21 14:47 | MHC.OFFVISWM ---
VS Expanded 07/21/25 14:57 BP 138/91 H Blood Pressure Location Rt brachial Blood Pressure Position Sitting Pulse 85 Pulse Source Pulse Oximeter Temp 96.2 F L Temperature Source Temporal Artery Scan Pulse Oximetry 99 Oxygen Delivery Method Room Air Height 5 ft 3 in Weight 298 lb 3.2 oz BMI 52.8 Body Fat % 51.0 Body Fat Mass 152.2 Fat Free Mass 146.0 Visceral Fat Rating 17.0 Body Water % 35.2 Body Water Mass 105.0 Muscle Mass/Score 138.6 Basal Metabolic Rate/Score 2,155 Intake Visit Reasons: (OV) PO LSG 07/14/25 Allergies cephalexin (From Keflex) Allergy (Intermediate, Verified 07/21/25 14:51) Redness of Skin doxycycline Allergy (Intermediate, Verified 07/21/25 14:51) Hives Penicillins Allergy (Intermediate, Verified 07/21/25 14:51) Hives, burning sensation Sulfa (Sulfonamide Antibiotics) Allergy (Intermediate, Verified 07/21/25 14:51) Hives,palpatations HPI Comments Details: Patient is a pleasant 25-year-old female who returns to the office today in follow-up. She is 7 days post sleeve gastrectomy performed on 07/14/2025. She is tolerating 3 fair life shakes 4 oz of shake with 4 oz of almond milk at10-12, 2-4, 6-8. She has moved her bowels. She has additionally drinking about 40 oz of fluid. [facility] Medical History Sleep apnea treated with nocturnal bilevel positive airway pressure (BPAP) Sleep apnea PCOS (polycystic ovarian syndrome) Migraines ADHD (attention deficit hyperactivity disorder) Depression GERD (gastroesophageal reflux disease) Morbid obesity Asthma High blood pressure Surgical History (Updated 07/21/25 @ 14:53 by Brinda Huynh CMA) S/P gastric sleeve procedure S/P tonsillectomy History of eye surgery Family History Maternal Grandmother Breast cancer Mother Diabetes Other HTN (hypertension) Social History Household Members: None Housing: Apartment Are you a primary summer child caregiver to a significant other at home: No Do you presently have visiting nurse or other home services: No Alcohol intake: current Alcohol intake frequency: holidays/special occasions only Patient Tobacco Use Status: Never used Tobacco e-Cigarette/Vaping Use: Never Used Second Hand Smoke Exposure: No service: No Current occupational status: employed Cognitive needs: No Hearing needs: No Vision needs: Yes (Glasses) Female Reproductive History Menstrual Age of Menarche: 11 Physical Exam Vital Signs: Last Vital Signs Temp 96.2 F L 07/21/25 14:57 Pulse 85 07/21/25 14:57 BP 138/91 H 07/21/25 14:57 Pulse Ox 99 07/21/25 14:57 Oxygen Delivery Method Room Air 07/21/25 14:57 BMI result Body Mass Index 52.8 GI Inspection: Yes incision (Clean, dry, intact.) Assessment & Plan Assessment & Plan (1) S/P laparoscopic sleeve gastrectomy: Code(s): Z98.84 - Bariatric surgery status Category: Surgical Plan: POD 9 s/p LSG on 07/14/[address] Rossi Weight loss prior to surgery was 50.8 pounds or 13.7 % TBWL. Original weight on 03/17/2025 was 370 pounds and op weight was 319.2 pounds. Be sure to text Dr Rossi exactly 1 week after surgery your weight from your home scale so he can adjust your meal plan. Continue meal plan until f/u w Adelina in 2 weeks May shower, no submersion in bath for another week Continue abdominal binder with activity and exercise for the next 2 weeks. Exercise prior to surgery was treadmill and may resume No abdominal exercises for 6 weeks post operatively Will be emailed link to post op video for review Reminded of the pace of drinking, 2 mL per minute, 1 oz/15 min.
[2025-07-21 14:57] VITALS: BP 138/91; PULSE 85; TEMP 35.7; O2SAT 99; BMI 52.8
--- OUTSIDE RECORDS SUMMARY | 2025-07-21 15:19 | XMS_ITS | Encounter Summary ---
Author Organization [facility] Address [address] [place] [address] Care Team Providers Care Pre Sales Architect Name Role Phone Arpita White MD Primary Care Provider Shanique Mccarthy MD Primary Care Provider [facility] Pcp Primary Care Provider Martina Cade MD Primary Care Provider Unavail Darin Ferrer MD Primary Care Provider [phone] Sushma Jin SUPERVISOR LIVESTOCK YARD Primary Care Provider Aranza vailable Carolyn Skaggs MD Primary Care Prov ider Sushma Jin SUPERVISOR LIVESTOCK YARD Primary Care Provider Aranza vailable Encounter Details Date Type Department Care Team Description 1999 [facility] - [address] [address] Live Orellana MD UNSPECIFIED VIRAL INFECTION Social [...] site documented in this encounter Care Teams Pre Sales Architect Relationship Specialty Start Date End Date Arpita White MD PCP - General 99 07/22/18 Shanique Ayala MD PCP - General 1999 99 [facility], Pcp PCP - General Internal Medicine 07/23/18 12/20/18 Martina Gonzalez MD PCP - General Internal Medicine 12/21/18 10/14/21 Darin Restrepo MD [address] [place] [address] PCP - General Internal Medicine 10/15/21 06/16/22 Sushma Jin NP [address] [place], [place] [phone] PCP - General Internal Medicine 06/17/22 09/04/22 Carolyn Skaggs MD [address] [place] [address] PCP - General Internal Medicine 09/05/22 11/11/23 Sushma Jin NP [address] [place] [address] PCP - General Internal Medicine 11/12/23 documented as of this encounter
--- OUTSIDE RECORDS SUMMARY | 2025-07-21 15:19 | XMS_ITS | Encounter Summary ---
Author Organization [facility] Address [address] [place] [address] Care Team Providers Care Worm Grower Name Role Phone Martina Gonzalez MD Primary Care Provider Unavail able Darin Restrepo MD Primary Care Provider [phone] Sushma Jin NP Primary Care Provider Aranza vailable Carolyn Skaggs MD Primary Care Prov ider Sushma Jin PLATING TANK OPERATOR Primary Care Provider Aranza vailable Encounter Details Date Type Department Care Team Description 08/09/2019 Provider Education Specialist Report Medical Records [address] [place] [address] [place] Social History Tobacco Use [...] on filedocumented in this encounter Care Teams Worm Grower Relationship Specialty Start Date End Date Martina Gonzalez MD PCP - General Internal Medicine 12/21/18 10/14/21 Darin Restrepo MD [address] [place] [phone] PCP - General Internal Medicine 10/15/21 06/16/22 Sushma Jin NP [address] [place] [address] PCP - General Internal Medicine 06/17/22 09/04/22 Carolyn Skaggs MD [address] [place] [address] PCP - General Internal Medicine 09/05/22 11/11/23 Sushma Jin NP [address] [place] [address] PCP - General Internal Medicine 11/12/23 documented as of this encounter
--- OUTSIDE RECORDS SUMMARY | 2025-07-21 15:19 | XMS_ITS | Encounter Summary ---
Author Organization [facility] Address [address] [place] [address] Care Team Providers Care Fast Food Team Member Name Role Phone Martina Gonzalez MD Primary Care Provider Unavail Darin Ferrer MD Primary Care Provider [phone] Sushma Jin COURSE DEVELOPER Primary Care Provider Aranza vailable Carolyn Skaggs MD Primary Care Prov ider Sushma Jin COURSE DEVELOPER Primary Care Provider Aranza vailable Encounter Details Date Type Department Care Team Description 07/18/2021 Belt Lacer Report Medical Records [address] [place] [address] Lucas Leal, PACooperC Social History Tobacco Use [...] on filedocumented in this encounter Care Teams Fast Food Team Member Relationship Specialty Start Date End Date Martina Gonzalez MD PCP - General Internal Medicine 12/21/18 10/14/21 Darin Restrepo MD [address] [place] [id number] PCP - General Internal Medicine 10/15/21 06/16/22 Sushma Jin NP [address] [place] [address] PCP - General Internal Medicine 06/17/22 09/04/22 Carolyn Skaggs MD [address] [place] [address] PCP - General Internal Medicine 09/05/22 11/11/23 Sushma Jin NP [address] [place] [address] PCP - General Internal Medicine 11/12/23 documented as of this encounter
--- OUTSIDE RECORDS SUMMARY | 2025-07-21 15:19 | XMS_ITS | Encounter Summary ---
Author Organization [facility] Address [address] [place] [address] Care Team Providers Care South Asian History Professor Name Role Phone Martina Gonzalez MD Primary Care Provider Unavail able Darin Restrepo MD Primary Care Provider [phone] Sushma Jin SALES REPRESENTATIVE JEWELRY Primary Care Provider Aranza vailable Carolyn Skaggs MD Primary Care Prov ider Sushma Jin SALES REPRESENTATIVE JEWELRY Primary Care Provider Aranza vailable Encounter Details Date Type Department Care Team Description 07/25/2021 Refill Nephrology - [address] [address] Christopher Pollard MD [address] [place] [address] Social History Tobacco Use Types Packs/Day Years [...] on filedocumented in this encounter Care Teams South Asian History Professor Relationship Specialty Start Date End Date Martina Gonzalez MD PCP - General Internal Medicine 12/21/18 10/14/21 Darin Restrepo MD [address] [place] [address] PCP - General Internal Medicine 10/15/21 06/16/22 Sushma Jin NP [address] [place], [place] [address] PCP - General Internal Medicine 06/17/22 09/04/22 Carolyn Skaggs MD [address] [place] [address] PCP - General Internal Medicine 09/05/22 11/11/23 Sushma Jin NP [address] [place] [address] PCP - General Internal Medicine 11/12/23 documented as of this encounter
--- OUTSIDE RECORDS SUMMARY | 2025-07-21 15:19 | XMS_ITS | Encounter Summary ---
Author Organization [facility] Address [address] [place] [address] Care Team Providers Care Hollow Handle Bench Worker Name Role Phone Carolyn Skaggs MD Primary Care Prov ider Sushma Jin SHELLFISH DREDGE OPERATOR Primary Care Provider Aranza vailable Encounter Details Date Type Department Care Team Description 02/25/2023 Telephone Adult Medicine [address] [address] Carolyn Skaggs MD [address] [place] [address] Social History Tobacco Use Types Packs/Day Years [...] on filedocumented in this encounter Care Teams Hollow Handle Bench Worker Relationship Specialty Start Date End Date Carolyn Skaggs MD [address] [place] [address] PCP - General Internal Medicine 09/05/22 11/11/23 Sushma Jin NP [address] [place] [address] PCP - General Internal Medicine 11/12/23 documented as of this encounter
--- OUTSIDE RECORDS SUMMARY | 2025-07-21 15:19 | XMS_ITS | Encounter Summary ---
Author Organization [facility] Address [address] [place] [address] Care Team Providers Care Chief Recordist Name Role Phone Martina Gonzalez MD Primary Care Provider Darin Glass MD Primary Care Provider [phone] Sushma Jin FIRE EXTINGUISHER INSPECTOR Primary Care Provider Aranza vailable Carolyn Skaggs MD Primary Care Prov ider Sushma Jin FIRE EXTINGUISHER INSPECTOR Primary Care Provider Aranza vailable Encounter Details Date Type Department Care Team Description 07/21/2020 Refill OBGYN - [place] [address] [place] [address] Yeni Lynch MD [address] [place] [address] Social History Tobacco Use Types Packs/Day Years [...] on filedocumented in this encounter Care Teams Chief Recordist Relationship Specialty Start Date End Date Martina Gonzalez MD PCP - General Internal Medicine 12/21/18 10/14/21 Darin Restrepo MD [address] [place] [address] PCP - General Internal Medicine 10/15/21 06/16/22 Sushma Jin NP [address] [place] [address] PCP - General Internal Medicine 06/17/22 09/04/22 Carolyn Skaggs MD [address] [place] [address] PCP - General Internal Medicine 09/05/22 11/11/23 Sushma Jin NP [address] [place] [address] PCP - General Internal Medicine 11/12/23 documented as of this encounter
--- OUTSIDE RECORDS SUMMARY | 2025-07-21 15:19 | XMS_ITS | Encounter Summary ---
Author Organization [facility] Address [address] [place] [address] Care Team Providers Care Road Worker Name Role Phone Arpita White MD Primary Care Provider [facility] anastasiia Barone, Pcp Primary Care Provider [facility] Primary Care Provider Unavail Darin Ferrer MD Primary Care Provider [phone] Sushma Jin SENIOR SUPPORT ENGINEER Primary Care Provider Aranza vailable Carolyn Skaggs MD Primary Care Prov ider Sushma Jin SENIOR SUPPORT ENGINEER Primary Care Provider Aranza vailable Encounter Details Date Type Department Care Team Description 01/31/2015 [facility] Medical Records [address] [place] [address] Abstract, Provider Social History Tobacco Use Types [...] on filedocumented in this encounter Care Teams Road Worker Relationship Specialty Start Date End Date Arpita White MD PCP - General 99 07/22/18 Community, Pcp PCP - General Internal Medicine 07/23/18 12/20/18 Mratina Gonzalez MD PCP - General Internal Medicine 12/21/18 10/14/21 Darin Restrepo MD [address] [place] [address] PCP - General Internal Medicine 10/15/21 06/16/22 Sushma Jin NP [address] [place] [address] PCP - General Internal Medicine 06/17/22 09/04/22 Carolyn Skaggs MD [address] [place] [address] PCP - General Internal Medicine 09/05/22 11/11/23 Sushma Jin NP [address] [place] [address] PCP - General Internal Medicine 11/12/23 documented as of this encounter
--- OUTSIDE RECORDS SUMMARY | 2025-07-21 15:19 | XMS_ITS | Encounter Summary ---
Author Organization [facility] Address [address] [place] [address] Care Team Providers Care Hide Handler Name Role Phone Darin Restrepo MD Primary Care Provider [phone] Sushma Jin PROSTHODONTIST/EDUCATOR Primary Care Provider Aranza vailable Carolyn Skaggs MD Primary Care Prov ider Sushma Jin PROSTHODONTIST/EDUCATOR Primary Care Provider Aranza vailable Encounter Details Date Type Department Care Team Description 11/30/2021 Pt. Non Urgent Medical Question Pulmonology - [place] [address] [facility] [address] [place] [phone] Shar Banegas MD [address] [place] [phone] Social History Tobacco Use Types Packs/Day Years [...] at the end of January with the orthopedic dentist. At my job, I was told I [...] on filedocumented in this encounter Care Teams Hide Handler Relationship Specialty Start Date End Date Darin Restrepo MD [address] [place] [address] PCP - General Internal Medicine 10/15/21 06/16/22 Sushma Jin NP [address] [place] [address] PCP - General Internal Medicine 06/17/22 09/04/22 Carolyn Skaggs MD [address] [place] [address] PCP - General Internal Medicine 09/05/22 11/11/23 Sushma Jin NP [address] [place] [address] PCP - General Internal Medicine 11/12/23 documented as of this encounter
--- OUTSIDE RECORDS SUMMARY | 2025-07-21 15:19 | XMS_ITS | Encounter Summary ---
Author Organization [facility] Address [address] [place] [address] Care Team Providers Care Cap Blocker Name Role Phone Martina Gonzalez MD Primary Care Provider Unavail Darin Ferrer MD Primary Care Provider Sushma Jin HOSPITAL RECEIVING CLERK Primary Care Provider Aranza vailable Carolyn Skaggs MD Primary Care Prov ider Sushma Jin HOSPITAL RECEIVING CLERK Primary Care Provider Aranza vailable Reason for Visit * Reason Onset Date Comments refill request 08/18/2019 Encounter Details Date Type Department Care Team Description 08/18/2019 Refill Respiratory and Diabetes Medicaid/ACO Pharmacist [address] [place] [address] Martina Gonzalez MD refill request Social History [...] Pharmacist - Outpatient [facility] [address] [place] [address] P: [phone] days: [phone] [email or web address] documented in this encounter Plan of Treatment Not on file documented as of this encounter Visit Diagnoses Not on filedocumented in this encounter Care Teams Cap Blocker Relationship Specialty Start Date End Date Martina Gonzalez MD PCP - General Internal Medicine 12/21/18 10/14/21 Darin Restrepo MD [address] [place] [address] PCP - General Internal Medicine 10/15/21 06/16/22 Sushma Jin NP [address] [place], [place] [address] PCP - General Internal Medicine 06/17/22 09/04/22 Carolyn Skaggs MD [address] [place] [address] PCP - General Internal Medicine 09/05/22 11/11/23 Sushma Jin NP [address] [place], [place] [address] PCP - General Internal Medicine 11/12/23 documented as of this encounter
--- OUTSIDE RECORDS SUMMARY | 2025-07-21 15:19 | XMS_ITS | Encounter Summary ---
Author Organization [facility] Address [address] [place] [address] Care Team Providers Care Workers Compensation Claims Supervisor Name Role Phone Arpita White MD Primary Care Provider Ann Barone, Pcp Primary [facility] Provider [facility] Primary Care Provider Unavail Darin Ferrer MD Primary Care Provider [phone] Sushma Jin DROP HAMMER SET UP OPERATOR Primary Care Provider Aranza vailable Carolyn Skaggs MD Primary Care Prov ider Sushma Jin DROP HAMMER SET UP OPERATOR Primary Care Provider Aranza vailable Encounter Details Date Type Department Care Team Description 05/04/2015 [facility] Visit Medical Records [address] [place] [address] Abstract, Provider Social History Tobacco Use Types [...] on filedocumented in this encounter Care Teams Workers Compensation Claims Supervisor Relationship Specialty Start Date End Date Arpita White MD PCP - General 99 07/22/18 Community, Pcp PCP - General Internal Medicine 07/23/18 12/20/18 Martina Gonzalez MD PCP - General Internal Medicine 12/21/18 10/14/21 Darin Restrepo MD [address] [place] [address] PCP - General Internal Medicine 10/15/21 06/16/22 Sushma Jin NP [address] [place] [address] PCP - General Internal Medicine 06/17/22 09/04/22 Caroyln Skaggs MD [address] [place] [address] PCP - General Internal Medicine 09/05/22 11/11/23 Sushma Jin NP [address] [place] [address] PCP - General Internal Medicine 11/12/23 documented as of this encounter
--- OUTSIDE RECORDS SUMMARY | 2025-07-21 15:19 | XMS_ITS | Encounter Summary ---
Author Organization [facility] Address [address] [place] [address] Care Team Providers Care Environmental Web Crawler Name Role Phone Darin Restrepo MD Primary Care Provider [phone] Sushma Jin PHOTOGRAPHY TEACHER Primary Care Provider Aranza vailable Carolyn Skaggs MD Primary Care Prov ider Sushma Jin PHOTOGRAPHY TEACHER Primary Care Provider Aranza vailable Encounter Details Date Type Department Care Team Description 03/19/2022 Pt. Non Urgent Medic al Question Adult Medicine [address] [address] Adelina Jay PA Social History Tobacco Use Types Packs/Day Years Used Date Smoking Tobacco: Never Smokeless Tobacco: Never Alcohol Use Standard Drinks/Week Comments Yes 0 (1 standard drink = 0.6 oz pur e alcohol) Ocassioanlly Sex Assigned at Date Recorded Female 03/19/2022 3:55 PM E DT Job Start Date Occupation Industry Not on file Not on file Not on file COVID-19 Exposure Response Date Recorded In the last 10 days, have yo u been in contact with someone who was confirmed or suspected to have Coronavirus/COVID-19? No / Unsure 03/12/2022 3:23 PM EDT documented as of this encounter Miscellaneous Notes * Telephone Encounter - Nat Mcgraw M.A. - 03/19/2022 4:10 PM EDTFrom: Nena Zafar To: [employer] Sent: 03/19/2022 3:58 PM EDT Subject: Acid reflux follow up Cr, I am just getting into contact with you about taking the Pepcid for about 3 weeks now and I don???tsee much improvement with my acid reflux resolving or getting better; and I also am still looking for a pay station collector for the referral once I find one who accepts my insurance I will let you know Thanks, Dorian gaytan documented in this encounter Plan of Treatment Not on file documented as of this encounter Visit Diagnoses Not on filedocumented in this encounter Care Teams Environmental Web Crawler Relationship Specialty Start Date End Date Darin Restrepo MD [address] [place] [address] PCP - General Internal Medicine 10/15/21 06/16/22 Sushma Jin NP [address] [place] [address] PCP - General Internal Medicine 06/17/22 09/04/22 Carolyn Skaggs MD [address] [place] [address] PCP - General Internal Medicine 09/05/22 11/11/23 Sushma Jin NP [address] [place] [address] PCP - General Internal Medicine 11/12/23 documented as of this encounter
--- OUTSIDE RECORDS SUMMARY | 2025-07-21 15:19 | XMS_ITS | Encounter Summary ---
Author Organization [facility] Address [address] [place] [address] Care Team Providers Care Hardwood Faller Name Role Phone Carolyn Skaggs MD Primary Care Prov ider Sushma Jin SALES DEPARTMENT SUPERVISOR Primary Care Provider Aranza vailable Reason for Visit * Reason Onset Date Comments er follow up 10/25/2022 Encounter Details Date Type Department Care Team Description 10/25/2022 Telephone Adult Medicine [facility] [address] [place] [address] Carolyn Skaggs MD [address] [place] [address] er follow up Social History Tobacco Use Types Packs/Day Years [...] was confirmed or suspected to have Coronavirus/COVID-19? Unable to assess 10/01/2022 7:38 AM EST documented as of this encounter Miscellaneous Notes * Telephone Encounter - Yamini Spring - 10/28/2022 3:27 PM EST Pt was re evaluated at er appt not needed. * Telephone Encounter - Sushma Song Veronika - 10/25/2022 12:55 PM EST Hospital follow up appointment needed Hospital patient was treated at: [facility] Was this only an ER visit or was the patient admitted to the hospital? ER visit only Date of visit if ER visit only: 10/23/22 If patient was admitted what was the date of discharge? N/A Reason/diagnosis for visit or stay: Abcess in right arm When was the patient told to follow up? 1 week Was visit or stay related to an injury? NO If yes, what was the date of injury (DOI)? N/A If yes, was the injury due to N/A documented in this encounter Plan of Treatment Not on file documented as of this encounter Visit Diagnoses Not on filedocumented in this encounter Care Teams Hardwood Faller Relationship Specialty Start Date End Date Carolyn Skaggs MD [address] [place] [address] PCP - General Internal Medicine 09/05/22 11/11/23 Sushma Jin NP [address] [place] [address] PCP - General Internal Medicine 11/12/23 documented as of this encounter
--- OUTSIDE RECORDS SUMMARY | 2025-07-21 15:19 | XMS_ITS | Encounter Summary ---
Author Organization [facility] Address [address] [place] [address] Care Team Providers Care Restaurant Mgr Name Role Phone Carolyn Skaggs MD Primary Care Prov ider Sushma Jin NP Primary Care Provider Aranza vailable Reason for Visit * Reason Comments E-prescribe Rx Request Encounter Details Date Type Department Care Team Description 12/06/2022 Refill Bariatric Surgery - [place] [address] [facility] [address] [place] [address] Antonieta Bojorquez MD [address] [place] [address] [address] [place] [address] E-prescribe Rx Request Social History Tobacco Use [...] suspected to have Coronavirus/COVID-19? Unable to assess 12/05/2022 7:45 AM EST documented as of this encounter Plan of Treatment Not on file documented as of this encounter Visit Diagnoses Diagnosis Vitamin D deficiency Unspecified vitamin D deficiency documented in this encounter Care Teams Restaurant Mgr Relationship Specialty Start Date End Date Carolyn Skaggs MD [address] [place] [address] PCP - General Internal Medicine 09/05/22 11/11/23 Sushma Jin NP [address] [place] [address] PCP - General Internal Medicine 11/12/23 documented as of this encounter
--- OUTSIDE RECORDS SUMMARY | 2025-07-21 15:19 | XMS_ITS | Encounter Summary ---
Author Organization [facility] Address [address] [facility] [address] [place] [address] Phone Care Team Providers Care Manager Inpatient Name Role Phone Arpita White MD Primary Care Provider Martina Hunter MD Primary Care Provider [phone] Darin Restrepo MD Primary Care Provider + Encounter Details Date Type Department Care Team (Latest Contact Info) Description 10/24/2017 Transcribe Orders [facility] [address] [place] [address] Cameron Jones MD [address] [place] [address] Hirsutism (Primary Dx); Oligomenorrhea, unspecified [...] (10/24/2017 8:29 AM EST) HDL 51 mg/dL [facility] Comment: Interpretation: Risk Level Females Decreased >55mg/dL Average 50-55 mg/dL Increased <50 mg/dL CHOLESTEROL 141 0 - 240 mg/dL [facility] Comment: Pediatric Reference Ranges for 2 to 18 years Acceptable: Less than 170 mg/dL Borderline: 170 - 199 mg/dL High: Greater than or equal to 200 mg/dL TRIGLYCERIDES 73 30 - 160 mg/dL [facility] LDL 75 50 - 129 mg/dL [facility] Comment: LDL levels in terms of risk for coronary heart disease: <100 mg/dL: Optimal 100-129 mg/dL: Near or above optimal 130-159 mg/dL: Borderline high 160-189 mg/dL: High >190 mg/dL: Very High CARDIAC RISK RATIO 2.8(L) 3.3 - 4.4 C [facility] Blood 10/24/2017 8:29 AM EST 10/24/2017 8:33 AM EST Cameron Jones MD LAB BLOOD ORDERABLES Fi nal Result Performing Organization Address City/State/[facility] Co de Phone Number [facility] [address] [place] [address] documented in this encounter Visit Diagnoses Diagnosis Hirsutism- Primary Oligomenorrhea, unspecified type documented in this encounter Additional Health Concerns Infection Onset Date Last Indicated Resolved Time CoV-Risk 02/16/2023 02/16/2023 02/27/2023 1:22 AM EDT CoV-Risk 01/21/2024 01/21/2024 02/01/2024 1:22 AM EST documented as of this encounter Care Teams Manager Inpatient Relationship Specialty Start Date End Date Arpita White MD [address] [place] [address] PCP - General Pediatrics 10/24/17 11/22/19 Martina Torres MD [address] [place] [address] PCP - General Internal Medicine 11/23/19 11/29/21 Darin Restrepo MD [address] [place] [address] PCP - General Internal Medicine 11/30/21 documented as of this encounter Additional Source Comments The information contained in this document represents components of the legal health record. It is not the complete legal health record.[facility]
--- OUTSIDE RECORDS SUMMARY | 2025-07-21 15:19 | XMS_ITS | Encounter Summary ---
Author Organization [facility] Address [address] [place] [address] Care Team Providers Care Metal Baler Name Role Phone Darin Restrepo MD Primary Care Provider [phone] Sushma Jin SUPERVISOR SHED WORKERS Primary Care Provider Aranza vailable Carolyn Skaggs MD Primary Care Prov ider Sushma Jin SUPERVISOR SHED WORKERS Primary Care Provider Aranza vailable Reason for Visit * Reason Comments E-prescribe Rx Request Encounter Details Date Type Department Care Team Description [facility] [address] [place] [phone] Antonieta Bojorquez MD [address] [place] [address] [address] [place] [address] E-prescribe Rx Request Social History Tobacco Use [...] (HCC) documented in this encounter Care Teams Metal Baler Relationship Specialty Start Date End Date Darin Restrepo MD [address] [place] [address] PCP - General Internal Medicine 10/15/21 06/16/22 Sushma Jin NP [address] [place] [address] PCP - General Internal Medicine 06/17/22 09/04/22 Carolyn Skaggs MD [address] [place] [address] PCP - General Internal Medicine 09/05/22 11/11/23 Sushma Jin NP [address] [place], [place] [address] PCP - General Internal Medicine 11/12/23 documented as of this encounter
--- OUTSIDE RECORDS SUMMARY | 2025-07-21 15:19 | XMS_ITS | Encounter Summary ---
Author Organization [facility] Address [address] [facility] [address] [place] [address] Phone Care Team Providers Care Hand Buffer Name Role Phone Darin Restrepo MD Primary Care Provider + Encounter Details Date Type Department Care Team (Late st Contact Info) Description 10/10/2022 Procedure Pass [facility], Ct Scan - [address] [address] Social History Tobacco Use Types Packs/Day Years [...] documented as of this encounter Care Teams Hand Buffer Relationship Specialty Start Date End Date Darin Restrepo MD [address] [place] [address] PCP - General Internal Medicine 11/30/21 documented as of this encounter Additional Source Comments The information contained in this document represents components of the legal health record. It is not the complete legal health record.[facility]
--- OUTSIDE RECORDS SUMMARY | 2025-07-21 15:19 | XMS_ITS | Encounter Summary ---
Author Organization [facility] Address [address] [facility] [address] [place] [address] Phone Care Team Providers Care Gaming Investigator Name Role Phone Darin Restrepo MD Primary Care Provider + Encounter Details Date Type Department Care Team (Late st Contact Info) Description 01/22/2024 Procedure Pass [facility], Ct Scan - [facility] [address] [place] [address] Social History Tobacco Use Types Packs/Day Years [...] documented as of this encounter Care Teams Gaming Investigator Relationship Specialty Start Date End Date Darin Restrepo MD [address] [place] [address] PCP - General Internal Medicine 11/30/21 documented as of this encounter Additional Source Comments The information contained in this document represents components of the legal health record. It is not the complete legal health record.[facility]
--- OUTSIDE RECORDS SUMMARY | 2025-07-21 15:19 | XMS_ITS | Encounter Summary ---
Author Organization [facility] Address [address] [place] [address] Care Team Providers Care Neurourologist Name Role Phone Darin Restrepo MD Primary Care Provider [phone] Sushma Jin AVIONICS SUPERVISOR Primary Care Provider Aranza vailable Carolyn Skaggs MD Primary Care Prov ider Sushma Jin AVIONICS SUPERVISOR Primary Care Provider Aranza vailable Reason for Visit * Reason Comments E-prescribe Rx Request Encounter Details Date Type Department Care Team Description 01/31/2022 Refill General Surgery - [address] [place] [phone] Antonieta Bojorquez MD [address] [place] [address] [address] [place] [address] E-prescribe Rx Request Social History Tobacco Use [...] (HCC) documented in this encounter Care Teams Neurourologist Relationship Specialty Start Date End Date Darin Restrepo MD [address] [place] [address] PCP - General Internal Medicine 10/15/21 06/16/22 Sushma Jin NP [address] [place] [address] PCP - General Internal Medicine 06/17/22 09/04/22 Carolyn Skaggs MD [address] [place] [address] PCP - General Internal Medicine 09/05/22 11/11/23 Sushma Jin NP [address] [place] [address] PCP - General Internal Medicine 11/12/23 documented as of this encounter
--- OUTSIDE RECORDS SUMMARY | 2025-07-21 15:19 | XMS_ITS | Encounter Summary ---
Author Organization [facility] Address [address] [place] [address] Care Team Providers Care Submarine Worker Name Role Phone Arpita White MD Primary Care Provider Ann Barone, Pcp Primary Care Provider Martina Cade MD Primary Care Provider Unavail Darin Ferrer MD Primary Care Provider [phone] Sushma Jin SURVEY COORDINATOR Primary Care Provider Aranza vailable Carolyn Skaggs MD Primary Care Prov ider Sushma Jin SURVEY COORDINATOR Primary Care Provider Aranza vailable Encounter Details Date Type Department Care Team Description 10/12/2014 [facility] Medical Records [address] [place] [address] Gutierrez Samaniego [address] [place] [address] Social History Tobacco Use Types Packs/Day Years [...] on filedocumented in this encounter Care Teams Submarine Worker Relationship Specialty Start Date End Date Arpita White MD PCP - General 99 07/22/18 [facility], Pcp PCP - General Internal Medicine 07/23/18 12/20/18 Martina Gonzalez MD PCP - General Internal Medicine 12/21/18 10/14/21 Darin Restrepo MD [address] [place] [address] PCP - General Internal Medicine 10/15/21 06/16/22 Sushma Jin NP [address] [place] [address] PCP - General Internal Medicine 06/17/22 09/04/22 Carolyn Skaggs MD [address] [place] [address] PCP - General Internal Medicine 09/05/22 11/11/23 Sushma Jin NP [address] [place] [address] PCP - General Internal Medicine 11/12/23 documented as of this encounter
--- OUTSIDE RECORDS SUMMARY | 2025-07-21 15:19 | XMS_ITS | Encounter Summary ---
Author Organization [facility] Address [address] [place] [address] Phone Care Team Providers Care Developer Relations Manager Name Role Phone Darin Restrepo MD Primary Care Provider + Encounter Details Date Type Department Care Team (Late st Contact Info) Description 01/22/2024 Procedure Pass [facility], Ct Scan - [facility] [address] [place] [address] Social History Tobacco Use Types Packs/Day Years [...] documented as of this encounter Care Teams Developer Relations Manager Relationship Specialty Start Date End Date Darin Restrepo MD [address] [place] [address] PCP - General Internal Medicine 11/30/21 documented as of this encounter Additional Source Comments The information contained in this document represents components of the legal health record. It is not the complete legal health record.[facility]
--- OUTSIDE RECORDS SUMMARY | 2025-07-21 15:19 | XMS_ITS | Encounter Summary ---
Author Organization [facility] Address [address] [place] [address] Care Team Providers Care Hairspring Cutter Name Role Phone Martina Gonzalez MD Primary Care Provider Unavail Darin Ferrer MD Primary Care Provider [phone] Sushma Jin FINE WIRE DRAWER Primary Care Provider Aranza vailable Carolyn Skaggs MD Primary Care Prov ider Sushma Jin FINE WIRE DRAWER Primary Care Provider Aranza vailable Encounter Details Date Type Department Care Team Description 02/07/2021 Old Medical Records Medical Records [address] [place] [address] Cameron Jones Social History Tobacco Use Types [...] on filedocumented in this encounter Care Teams Hairspring Cutter Relationship Specialty Start Date End Date Martina Gonzalez MD PCP - General Internal Medicine 12/21/18 10/14/21 Darin Restrepo MD [address] [place] [address] PCP - General Internal Medicine 10/15/21 06/16/22 Sushma Jin NP [address] [place] [address] PCP - General Internal Medicine 06/17/22 09/04/22 Carolyn Skaggs MD [address] [place] [address] PCP - General Internal Medicine 09/05/22 11/11/23 Sushma Jin NP [address] [place], [place] [address] PCP - General Internal Medicine 11/12/23 documented as of this encounter
--- OUTSIDE RECORDS SUMMARY | 2025-07-21 15:19 | XMS_ITS | Encounter Summary ---
Author Organization [facility] Address [address] [place] [address] Care Team Providers Care Driver Starting Gate Name Role Phone Carolyn Skaggs MD Primary Care Prov ider Sushma Jin NP Primary Care Provider Aranza vailable Reason for Visit * Reason Onset Date Comments Bariatric Weight Check 12/05/2022 Encounter Details Date Type Department Care Team Description 12/05/2022 Telephone Bariatric Surgery - [address] [place] [address] Nora Castillo, ,RDN,LDN Bariatric Weight Check Social History Tobacco Use Types Packs/Day Years [...] encounter Miscellaneous Notes * Telephone Encounter - Corine Galindo - 12/05/2022 9:23 AM EST Patient weight 313.04. documented in this encounter Plan of Treatment Not on file documented as of this encounter Visit Diagnoses Not on filedocumented in this encounter Care Teams Driver Starting Gate Relationship Specialty Start Date End Date Carolyn Skaggs MD [address] [place] [address] PCP - General Internal Medicine 09/05/22 11/11/23 Sushma Jin NP [address] [place] [address] PCP - General Internal Medicine 11/12/23 documented as of this encounter
--- OUTSIDE RECORDS SUMMARY | 2025-07-21 15:20 | XMS_ITS | Patient Health Record ---
Author Organization [facility] Address [address] [facility] [address] [place] [address] Support Name Relationship Address Phone Nena Zafar Guarantor Unknown [phone] Allergies Allergen (clinical drug ingredient) Drug/Non Drug [...] Status Risk Notes Problem Morbid obesity (disorder) (720009153) Morbid (severe) obesity due to excess calories (E66.01) Active confirmed Problem Generalized anxiety disorder (91953452) Generalized anxiety disorder (F41.1) Active confirmed Problem Migraine with aura (6457829) Migraine with aura, not intractable, without status migrainosus (G43.109) Active confirmed Problem Obstructive sleep apnea syndrome (disorder) (52580228) Obstructive sleep apnea (adult) (pediatric) (G47.33) Active confirmed Problem Essential hypertension (80339620) Essential (primary) hypertension (I10) Active confirmed Problem Mild intermittent asthma (725182714) Mild intermittent asthma, uncomplicated (J45.20) Active confirmed Problem Gastro-esophageal reflux disease without esophagitis (583213943) Gastro-esophageal reflux disease without esophagitis (K21.9) Active confirmed Problem Attention deficit hyperactivity disorder, predominantly inattentive type (disorder) (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) Attention and concentration deficit (R41.840) Active confirmed Plan Of Treatment No Information Insurance Providers Payer Name Payer Address Payer Phone Subscriber Number Group Number Insured Name Patient Relationship to Insured Coverage Start Date Coverage End Date [facility] [address] [place] [address] [id number] Nena Ballard Self - patient is the insured Medical (General) History Medical History History ICD Code Generalized anxiety disorder/major depre ssive disorder, sees psychiatry ADD GERD Mild intermittent asthma Migraine headaches with aura Hypertension AIDAN cannot tolerate CPAP Surgical History Surgery Date(Month/Year) strabismus surgery
--- OUTSIDE RECORDS SUMMARY | 2025-07-21 15:20 | XMS_ITS | Encounter Summary ---
Author Organization [facility] Address [address] [place] [address] Care Team Providers Care Human Resources Trainer Name Role Phone Arpita White MD Primary Care Provider [facility], Pcp Primary Care Provider Martina Cade MD Primary Care Provider Unavail Darin Ferrer MD Primary Care Provider [phone] Sushma Jin ADMINISTRATION ASSISTANT Primary Care Provider Aranza vailable Carolyn Skaggs MD Primary Care Prov ider Sushma Jin ADMINISTRATION ASSISTANT Primary Care Provider Aranza vailable Reason for Visit * Reason Comments E-prescribe Rx Request Encounter Details Date Type Department Care Team Description 11/25/2015 Refill Pediatrics - [address] [phone] Arpita White MD E-prescribe Rx Request Social [...] the day? NO Arpita White Payor: [facility] MEDICAID / Plan: [facility] MEDICAID HMO $0 [place] / Product Type: HMO [id number] documented in this encounter Plan of Treatment Not on file documented as of this encounter Visit Diagnoses Not on filedocumented in this encounter Care Teams Human Resources Trainer Relationship Specialty Start Date End Date Arpita White MD PCP - General 99 07/22/18 [facility] PCP - General Internal Medicine 07/23/18 12/20/18 Martina Gonzalez MD PCP - General Internal Medicine 12/21/18 10/14/21 Darin Restrepo MD [address] [place] [address] PCP - General Internal Medicine 10/15/21 06/16/22 Sushma Jin NP [address] [place] [address] PCP - General Internal Medicine 06/17/22 09/04/22 Carolyn Skaggs MD [address] [place] [address] PCP - General Internal Medicine 09/05/22 11/11/23 Sushma Jin NP [address] [place] [address] PCP - General Internal Medicine 11/12/23 documented as of this encounter
--- OUTSIDE RECORDS SUMMARY | 2025-07-21 15:21 | XMS_ITS | Encounter Summary ---
Author Organization [facility] Address [address] [place] [address] Care Team Providers Care Casino Change Attendant Name Role Phone Arpita White MD Primary [facility]cp Primary Care Provider [facility] Martina Diaz MD Primary Care Provider Unavail able Darin Restrepo MD Primary Care Provider [phone] Sushma Jin NP Primary Care Provider Aranza vailable Carolyn Skaggs MD Primary Care Prov ider Sushma Jin RETAIL SALES ASSOCIATE BILINGUAL Primary Care Provider Aranza vailable Encounter Details Date Type Department Care Team Description 04/29/2016 Marketing Regional Consultant Report Medical Records [address] [place] [address] Blanca Foster MD Social History Tobacco Use [...] on filedocumented in this encounter Care Teams Casino Change Attendant Relationship Specialty Start Date End Date Arpita White MD PCP - General 99 07/22/18 [facility], Pcp PCP - General Internal Medicine 07/23/18 12/20/18 Martina Gonzalez MD PCP - General Internal Medicine 12/21/18 10/14/21 Darin Restrepo MD [address] [place] [address] PCP - General Internal Medicine 10/15/21 06/16/22 Sushma Jin NP [address] [place] [address] PCP - General Internal Medicine 06/17/22 09/04/22 Carolyn Skaggs MD [address] [place] [address] PCP - General Internal Medicine 09/05/22 11/11/23 Sushma Jin NP [address] [place] [address] PCP - General Internal Medicine 11/12/23 documented as of this encounter
--- OUTSIDE RECORDS SUMMARY | 2025-07-21 15:21 | XMS_ITS | Clinical Summary ---
Author Organization [facility] Address [address] [facility] [address] [place] [address] Phone Care Team Providers Care Financial Engineer Name Role Phone Darin Restrepo MD [...] EST) SODIUM 140 133 - 146 mmol/L [facility] CHLORIDE 103 96 - 108 mmol/L [facility] POTASSIUM 4.6 3.3 - 5.1 mmol/L [facility] CO2 27 21 - 35 mmol/L [facility] BUN 15 6 - 19 mg/dL [facility] CREATININE 1.00 0.5 - 1.5 mg/dL [facility] GLUCOSE 100(H) 70 - 99 mg/dL [facility] CALCIUM 9.2 8.4 - 10.3 mg/dL [facility] EGFR 81 >59 mL/min/1.7 3m2 [facility] Comment:Estimated glomerular filtration rate calculated using the CKD-EPI refit equation. ANION GAP 15 10 - 20 mmol/L [facility] Blood 01/22/2024 12:3 5 AM EST 01/22/2024 12:40 AM EST us Grayson Ivan DO LAB BLOOD ORDERABLES F inal Result [facility] [address] [place] [address] from Last 3 Months or Most Recently Relevant to Health Maintenance Insurance [facility] CARE MEDICARE REPLACEMENT [place] [id number] [facility] RE[facility] [address] [address] [facility] MEDICARE REPLACEMENT CARE MEDICARE REPLACEMENT CARE MEDICARE REPLACEMENT [place] [id number] [facility] [address] [address] [facility] CARE MEDICARE REPLACEMENT [place] [id number] [facility] Care Teams Financial Engineer Relationship Specialty Start Date End Date Darin Restrepo MD [address] [place] [address] PCP - General Internal Medicine 11/30/21 Additional Source Comments The information contained in this document represents components of the legal health record. It is not the complete legal health record.[facility]
--- OUTSIDE RECORDS SUMMARY | 2025-07-21 15:21 | XMS_ITS | Encounter Summary ---
Author Organization [facility] Address [address] [place] [address] Care Team Providers Care Taproom Attendant Name Role Phone Arpita White MD Primary Care Provider [facility], Pcp Primary Care Provider Martina Cade MD Primary Care Provider Unavail Darin Ferrer MD Primary Care Provider [phone] Sushma Jin SOAKING ROOM OPERATOR Primary Care Provider Aranza vailable Carolyn Skaggs MD Primary Care Prov ider Sushma Jin SOAKING ROOM OPERATOR Primary Care Provider Aranza vailable Reason for Visit * Reason Comments E-prescribe Rx Request Encounter Details Date Type Department Care Team Description 12/21/2015 Refill Pediatrics - [address] [phone] Arpita White MD E-prescribe Rx Request Social [...] the day? NO Arpita White Payor: [facility] MEDICAID / Plan: [facility] MEDICAID HMO $0 [place] / Product Type: HMO [id number] documented in this encounter Plan of Treatment Not on file documented as of this encounter Visit Diagnoses Not on filedocumented in this encounter Care Teams Taproom Attendant Relationship Specialty Start Date End Date Arpita White MD PCP - General 99 07/22/18 [facility] [place] [place] PCP - General Internal Medicine 07/23/18 12/20/18 Martina Gonzalez MD PCP - General Internal Medicine 12/21/18 10/14/21 Darin Restrepo MD [address] [place] [address] PCP - General Internal Medicine 10/15/21 06/16/22 Sushma Jin NP [address] [place], [place] [address] PCP - General Internal Medicine 06/17/22 09/04/22 Carolyn Skaggs MD [address] [place] [address] PCP - General Internal Medicine 09/05/22 11/11/23 Sushma Jin NP [address] [place] [address] PCP - General Internal Medicine 11/12/23 documented as of this encounter
--- OUTSIDE RECORDS SUMMARY | 2025-07-21 15:21 | XMS_ITS | Encounter Summary ---
Author Organization [facility] Address [address] [place] [address] Care Team Providers Care Dock Pumper Name Role Phone Arpita White MD Primary Care Provider [facility], Pcp Primary Care Provider Martina Cade MD Primary Care Provider Unavail Darin Ferrer MD Primary Care Provider [phone] Sushma Jin NP Primary Care Provider Aranza vailable Carolyn Skaggs MD Primary Care Prov ider Sushma Jin TRIBAL COUNCIL MEMBER Primary Care Provider Aranza vailable Reason for Visit * Reason Comments E-prescribe Rx Request Encounter Details Date Type Department Care Team Description 12/23/2016 Refill Pediatrics - [address] [phone] Arpita White MD E-prescribe Rx Request Social [...] [facility] MEDICAID / Plan: [facility] MEDICAID O $0 [place] / Product Type: HMO [id number] documented in this encounter Plan of Treatment Not on file documented as of this encounter Visit Diagnoses Not on filedocumented in this encounter Care Teams Dock Pumper Relationship Specialty Start Date End Date Arpita White MD PCP - General 99 07/22/18 [facility] PCP - General Internal Medicine 07/23/18 12/20/18 Martina Gonzalez MD PCP - General Internal Medicine 12/21/18 10/14/21 Darin Restrepo MD [address] [place] [address] PCP - General Internal Medicine 10/15/21 06/16/22 Sushma Jin TRIBAL COUNCIL MEMBER [address] [place] [address] PCP - General Internal Medicine 06/17/22 09/04/22 Carolyn Skaggs MD [address] [place] [address] PCP - General Internal Medicine 09/05/22 11/11/23 Sushma Jin NP [address] [place] [address] PCP - General Internal Medicine 11/12/23 documented as of this encounter
--- OUTSIDE RECORDS SUMMARY | 2025-07-21 15:21 | XMS_ITS | Encounter Summary ---
Author Organization [facility] Address [address] [place] [address] Care Team Providers Care Land Surveyor Name Role Phone Arpita White MD Primary [facility], Pcp Primary Care Provider [facility] Martina Diaz MD Primary Care Provider Unavail able Darin Restrepo MD Primary Care Provider [phone] Sushma Jin NP Primary Care Provider Aranza vailable Carolyn Skaggs MD Primary Care Prov ider Sushma Jin INDUSTRIAL PLANT CUSTODIAN Primary Care Provider Aranza vailable Encounter Details Date Type Department Care Team Description 04/25/2016 Rug Inspector Helper Report Medical Records [address] [place] [address] Blanca Foster MD Social History Tobacco Use [...] on filedocumented in this encounter Care Teams Land Surveyor Relationship Specialty Start Date End Date Arpita White MD PCP - General 99 07/22/18 [facility], Pcp PCP - General Internal Medicine 07/23/18 12/20/18 Martina Gonzalez MD PCP - General Internal Medicine 12/21/18 10/14/21 Darin Restrepo MD [address] [place] [address] PCP - General Internal Medicine 10/15/21 06/16/22 Sushma Jin NP [address] [place] [address] PCP - General Internal Medicine 06/17/22 09/04/22 Carolyn Skaggs MD [address] [place] [address] PCP - General Internal Medicine 09/05/22 11/11/23 Sushma Jin NP [address] [place] [address] PCP - General Internal Medicine 11/12/23 documented as of this encounter
--- OUTSIDE RECORDS SUMMARY | 2025-07-21 15:21 | XMS_ITS | Encounter Summary ---
Author Organization [facility] Address [address] [place] [address] Care Team Providers Care Lead Producer Name Role Phone Arpita White MD [facility], Pcp Primary Care Provider [facility] Martina Diaz MD Primary Care Provider Unavail Darin Ferrer MD Primary Care Provider [phone] Sushma Jin EARTH MOVER Primary Care Provider Aranza vailable Carolyn Skaggs MD Primary Care Prov ider Sushma Jin EARTH MOVER Primary Care Provider Aranza vailable Encounter Details Date Type Department Care Team Description 03/27/2016 Signal Intelligence/Electronic Warfare Report Medical Records [address] [place] [address] Social History Tobacco Use Types Packs/Day Years [...] on filedocumented in this encounter Care Teams Lead Producer Relationship Specialty Start Date End Date Arpita White MD PCP - General 99 07/22/18 [facility], Pcp PCP - General Internal Medicine 07/23/18 12/20/18 Martina Gonzalez MD PCP - General Internal Medicine 12/21/18 10/14/21 Darin Restrepo MD [address] [place] [address] PCP - General Internal Medicine 10/15/21 06/16/22 Sushma Jin NP [address] [place] [address] PCP - General Internal Medicine 06/17/22 09/04/22 Carolyn Skaggs MD [address] [place] [address] PCP - General Internal Medicine 09/05/22 11/11/23 Sushma Jin NP [address] [place] [address] PCP - General Internal Medicine 11/12/23 documented as of this encounter
--- OUTSIDE RECORDS SUMMARY | 2025-07-21 15:21 | XMS_ITS | Encounter Summary ---
Author Organization [facility] Address [address] [place] [address] Care Team Providers Care Medical Orderly Name Role Phone Arpita White MD Primary [facility], Pcp Primary [facility] MD Primary Care Provider Unavail Darin Ferrer MD Primary Care Provider Sushma Jin PRIVATE BRANCH EXCHANGE REPAIRER Primary Care Provider Aranza vailable Carolyn Skaggs MD Primary Care Prov ider Sushma Jin PRIVATE BRANCH EXCHANGE REPAIRER Primary Care Provider Aranza vailable Encounter Details Date Type Department Care Team Description 12/31/2016 Transfer Records Medical Records [address] [place] [address] Abstract, Provider Social History Tobacco Use Types [...] on filedocumented in this encounter Care Teams Medical Orderly Relationship Specialty Start Date End Date Arpita White MD PCP - General 99 07/22/18 [facility], Pcp PCP - General Internal Medicine 07/23/18 12/20/18 Martina Gonzalez MD PCP - General Internal Medicine 12/21/18 10/14/21 Darin Restrepo MD [address] [place] [address] PCP - General Internal Medicine 10/15/21 06/16/22 Sushma Jin NP [address] [place] [address] PCP - General Internal Medicine 06/17/22 09/04/22 Carolyn Skaggs MD [address] [place] [address] PCP - General Internal Medicine 09/05/22 11/11/23 Sushma Jin NP [address] [place] [address] PCP - General Internal Medicine 11/12/23 documented as of this encounter
--- OUTSIDE RECORDS SUMMARY | 2025-07-21 15:21 | XMS_ITS | Encounter Summary ---
Author Organization [facility] Address [address] [place] [address] Care Team Providers Care Target Trimmer Name Role Phone Arpita White MD Primary [facility] Primary Care Provider [facility] Martina Diaz MD Primary Care Provider Unavail able Darin Restrepo MD Primary Care Provider [phone] Sushma Jin NP Primary Care Provider Aranza vailable Carolyn Skaggs MD Primary Care Prov ider Sushma Jin TRAFFIC CONTROLLER CABLE Primary Care Provider Aranza vailable Encounter Details Date Type Department Care Team Description 12/26/2015 Clinic Coordinator Report Medical Records [address] [place] [address] Blanca Foster MD Social History Tobacco Use [...] on filedocumented in this encounter Care Teams Target Trimmer Relationship Specialty Start Date End Date Arpita White MD PCP - General 99 07/22/18 [facility], Pcp PCP - General Internal Medicine 07/23/18 12/20/18 Martina Gonzalez MD PCP - General Internal Medicine 12/21/18 10/14/21 Darin Restrepo MD [address] [place] [address] PCP - General Internal Medicine 10/15/21 06/16/22 Sushma Jin NP [address] [place] [address] PCP - General Internal Medicine 06/17/22 09/04/22 Carolyn Skaggs MD [address] [place] [address] PCP - General Internal Medicine 09/05/22 11/11/23 Sushma Jin NP [address] [place] [address] PCP - General Internal Medicine 11/12/23 documented as of this encounter
--- OUTSIDE RECORDS SUMMARY | 2025-07-21 15:22 | XMS_ITS | Encounter Summary ---
Author Organization [facility] Address [address] [place] [address] Care Team Providers Care Compound Filler Name Role Phone Arpita White MD Primary [facility] Provider [facility], Pcp Primary Care Provider Martina Cade MD Primary Care Provider Unavail Darin Ferrer MD Primary Care Provider [phone] Sushma Jin RADIATION THERAPY TECHNOLOGIST Primary Care Provider Aranza vailable Carolyn Skaggs MD Primary Care Prov ider Sushma Jin RADIATION THERAPY TECHNOLOGIST Primary Care Provider Aranza vailable Reason for Visit * Reason Onset Date Comments Blood Pressure Elevated 01/17/2014 Headache 01/17/2014 pain, chest 01/17/2014 Encounter Details Date Type Department Care Team Description 01/17/2014 Telephone Pediatrics - [address] [address] Arpita White MD Blood Pressure Elevated; Headache; pain, chest Social History Tobacco Use Types Packs/Day Years [...] encounter Miscellaneous Notes * Telephone Encounter - Nayana Sorto R.N. - 01/27/2014 8:11 AM EST Needs f/u appt end of january b/p check * Telephone Encounter - Arpita White MD - 01/27/2014 7:54 AM EST School nurse BP's 01-19-14 152/80; 01-20-14 160/82; 02-20-14 - 190 or 140/88 All BP's in office normal range Please call mom to schedule follow up appt with me end of January as I had recommended at visit 01-18-14-. * Telephone Encounter - Keshawn Tripathi L.P.N. - 01/17/2014 1:11 PM EST Mom received call from School Nurse, Pt c/o chest tightness in School. Is better now but at time BP140/90. Staying in School. Pt has been c/o feeling tightness in chest for over a week. Using Albuterol with little effect. No cough or fever. No vomiting. Headaches on & off this week, no visual complaints. Appetite ok. Advised Mom to bring to [facility] ER (lives near there) Mom just off phone with Pt, she is feeling much better does not feel need to go to ER. Mom understands that if sx return Pt is to go to ER for evaluation. Mom agrees with disposition. Appt scheduled for tomorrow with Dr. White. Mom aware of NTTS FYI * Telephone Encounter - Miriam Rice - 01/17/2014 12:51 PM EST Signs/Symptoms: Headaches, High Blood Pressure, tightness in chest. Mom states received call from school nurse stating patient's blood pressure is 142/90 Pulse at 100 Duration of symptoms: Ongoing Temperature: N/A Allergies: Review of patient's allergies indicates no known allergies. Any chronic illnesses: Patient Active Problem List Diagnosis Code ??? Unspecified Asthma 493.90 ??? adhd 314.01 ??? Headache 784.0 ??? Heavy periods 626.2 ??? Hydradenitis 705.83 ??? Central auditory processing disorder 315.32 Is the child taking any medications: Current Outpatient Prescriptions Medication Sig Dispense Refill ??? ALBUTEROL SULFATE (PROAIR HFA) 108 (90 BASE) MCG/ACT AERS Inhale 2 Puffs into the lungs every 4hours as needed for Cough or Wheezing (for School Use ). 1 Inhaler 0 ??? Riboflavin 100 MG TABS Take 2 Tabs by mouth 2 times daily. 120 Tab 5 ??? Magnesium Gluconate 250 MG TABS Take 1 Tab by mouth 2 Times Daily. 60 Tab 5 ??? ibuprofen (ADVIL,MOTRIN) 600 MG tablet Take 1 Tab by mouth every 6 hours as needed for Pain. 100 Tab 0 ??? montelukast (SINGULAIR) 5 MG chewable tablet Take 1 Tab by mouth at bedtime. 30 Tab 5 ??? fluticasone (FLOVENT HFA) 220 MCG/ACT inhaler Inhale 2 Puffs into the lungs daily. 60 Act 3 ??? hydrocortisone 2.5 % cream Apply sparingly to affected areas twice daily 30 g 3 ??? topiramate (TOPAMAX SPRINKLE) 25 MG capsule Take 4 Caps by mouth at bedtime. 120 Cap 5 ??? fluticasone 50 MCG/ACT nasal spray 2 Sprays by Each Nare route daily. 30 Act 3 ??? clindamycin (CLINDAGEL) 1 % gel Apply to underarm daily 1 Tube 3 ??? polyethylene glycol (MIRALAX) powder Take 17 g by mouth daily. 1 capful (17g) QD mixed with 6-8oz water 119 g 5 ??? Saline Nasal [place] 0.65 % SOLN use twice daily as needed 1 Bottle 5 documented in this encounter Plan of Treatment Not on file documented as of this encounter Visit Diagnoses Not on filedocumented in this encounter Care Teams Compound Filler Relationship Specialty Start Date End Date Arpita White MD PCP - General 99 07/22/18 [facility], Pcp PCP - General Internal Medicine 07/23/18 12/20/18 Martina Gonzalez MD PCP - General Internal Medicine 12/21/18 10/14/21 Darin Restrepo MD [address] [place] [address] PCP - General Internal Medicine 10/15/21 06/16/22 Sushma Jin NP [address] [place], [place] [id number] PCP - General Internal Medicine 06/17/22 09/04/22 Carolyn Skaggs MD [address] [place] [address] PCP - General Internal Medicine 09/05/22 11/11/23 Sushma Jin NP [address] [place] [address] PCP - General Internal Medicine 11/12/23 documented as of this encounter
--- OUTSIDE RECORDS SUMMARY | 2025-07-21 15:22 | XMS_ITS | Encounter Summary ---
Author Organization [facility] Address [address] [place] [address] Care Team Providers Care Salesperson Wigs Name Role Phone Martina Gonzalez MD Primary Care Provider Unavail able Darin Restrepo MD Primary Care Provider Sushma Jin STUDIO CAMERA OPERATOR Primary Care Provider Aranza vailable Carolyn Skaggs MD Primary Care Prov ider Sushma Jin STUDIO CAMERA OPERATOR Primary Care Provider Aranza vailable Encounter Details Date Type Department Care Team Description 01/11/2019 Release of Information Medical Records [address] [place] [id number] Abstract, Provider Social History Tobacco Use Types [...] on filedocumented in this encounter Care Teams Salesperson Wigs Relationship Specialty Start Date End Date Martina Gonzalez MD PCP - General Internal Medicine 12/21/18 10/14/21 Darin Restrepo MD [address] [place] [id number] PCP - General Internal Medicine 10/15/21 06/16/22 Sushma Jin NP [address] [place] [address] PCP - General Internal Medicine 06/17/22 09/04/22 Carolyn Skaggs MD [address] [place] [address] PCP - General Internal Medicine 09/05/22 11/11/23 Sushma Jin NP [address] [place] [address] PCP - General Internal Medicine 11/12/23 documented as of this encounter
--- OUTSIDE RECORDS SUMMARY | 2025-07-21 15:22 | XMS_ITS | Encounter Summary ---
Author Organization [facility] Address [address] [place] [address] Care Team Providers Care Registered Nurse Maternal Child Name Role Phone Arpita White MD Primary Care Provider [facility], [facility] Care Provider Unavail Darin Ferrer MD Primary Care Provider Sushma Jin CANDY ROLLER Primary Care Provider Aranza vailable Carolyn Skaggs MD Primary Care Prov ider Sushma Jin CANDY ROLLER Primary Care Provider Aranza vailable Encounter Details Date Type Department Care Team Description 01/19/2014 Release of Information Medical Records [address] [place] [address] Abstract, Provider Social History Tobacco Use Types [...] on filedocumented in this encounter Care Teams Registered Nurse Maternal Child Relationship Specialty Start Date End Date Arpita White MD PCP - General 99 07/22/18 [facility], Pcp PCP - General Internal Medicine 07/23/18 12/20/18 Martina Gonzalez MD PCP - General Internal Medicine 12/21/18 10/14/21 Darin Restrepo MD [address] [place] [address] PCP - General Internal Medicine 10/15/21 06/16/22 Sushma Jin NP [address] [place] [address] PCP - General Internal Medicine 06/17/22 09/04/22 Carolyn Skaggs MD [address] [place] [address] PCP - General Internal Medicine 09/05/22 11/11/23 Sushma Jin NP [address] [place], [place] [phone] PCP - General Internal Medicine 11/12/23 documented as of this encounter
--- OUTSIDE RECORDS SUMMARY | 2025-07-21 15:22 | XMS_ITS | Encounter Summary ---
Author Organization [facility] Address [address] [place] [address] Care Team Providers Care Coin Box Inspector Name Role Phone Arpita White MD Primary Care Provider [facility] [place] [facility], Pcp Primary Care Provider Martina Cade MD Primary Care Provider Unavail Darin Ferrer MD Primary Care Provider [phone] Sushma Jin NP Primary Care Provider Aranza vailable Carolyn Skaggs MD Primary Care Prov ider Sushma Jin DIRECTOR OF COMMUNICATIONS Primary Care Provider Aranza vailable Reason for Visit * Reason Comments E-prescribe Rx Request Encounter Details Date Type Department Care Team Description 11/05/2017 Refill Pediatrics - [address] [id number] Arpita White MD E-prescribe Rx Request Social [...] encounter Miscellaneous Notes * Telephone Encounter - Monica Jade - 11/05/2017 9:02 AM EST When was patients last PE/WCC? 11/04/17 When is patients next PE/WCC scheduled? Waitlisted Arpita White RX REQUEST WHEN MED IS [...] of the day? NO Arpita White Payor: [facility] MEDICAID / Plan: [facility] MEDICAID [id number] [place] / Product Type: HMO [id number] documented in this encounter Plan of Treatment Not on file documented as of this encounter Visit Diagnoses Not on filedocumented in this encounter Care Teams Coin Box Inspector Relationship Specialty Start Date End Date Arpita White MD PCP - General 99 07/22/18 [facility] PCP - General Internal Medicine 07/23/18 12/20/18 Martina Gonzalez MD PCP - General Internal Medicine 12/21/18 10/14/21 Darin Restrepo MD [address] [place] [address] PCP - General Internal Medicine 10/15/21 06/16/22 Sushma Jin DIRECTOR OF COMMUNICATIONS [address] [place] [address] PCP - General Internal Medicine 06/17/22 09/04/22 Carolyn Skaggs MD [address] [place] [address] PCP - General Internal Medicine 09/05/22 11/11/23 Sushma Jin NP [address] [place], [place] [id number] PCP - General Internal Medicine 11/12/23 documented as of this encounter
--- OUTSIDE RECORDS SUMMARY | 2025-07-21 15:22 | XMS_ITS | Encounter Summary ---
Author Organization [facility] Address [address] [place] [address] Care Team Providers Care Reception Interviewer Name Role Phone Arpita White MD Primary Care Provider Shanique Mccarthy MD Primary Care Provider Brandee cano [facility], Pcp Primary Care Provider Martina Cade MD Primary Care Provider Unavail Darin Ferrer MD Primary Care Provider [phone] Sushma Jin X RAY SERVICE ENGINEER Primary Care Provider Aranza vailable Carolyn Skaggs MD Primary Care Prov ider Sushma Jin X RAY SERVICE ENGINEER Primary Care Provider Aranza vailable Encounter Details Date Type Department Care Team Description 1999 [facility] - [address] [address] Live Orellana MD DRUG WITHDRAWAL SYNDROME IN [...] in documented in this encounter Care Teams Reception Interviewer Relationship Specialty Start Date End Date Arpita White MD PCP - General 99 07/22/18 Shanique Ayala MD PCP - General 1999 99 [facility], Pcp PCP - General Internal Medicine 07/23/18 12/20/18 Martina Gonzalez MD PCP - General Internal Medicine 12/21/18 10/14/21 Darin Restrepo MD [address] [place] [address] PCP - General Internal Medicine 10/15/21 06/16/22 Sushma Jin NP [address] [place] [address] PCP - General Internal Medicine 06/17/22 09/04/22 Carolyn Skaggs MD [address] [place] [address] PCP - General Internal Medicine 09/05/22 11/11/23 Sushma Jin NP [address] [place] [address] PCP - General Internal Medicine 11/12/23 documented as of this encounter
--- OUTSIDE RECORDS SUMMARY | 2025-07-21 15:22 | XMS_ITS | Encounter Summary ---
Author Organization [facility] Address [address] [place] [address] Care Team Providers Care Survey And Mapping Technician Name Role Phone Arpita White MD Primary Care Provider Shanique Mccarthy MD Primary Care Provider Brandee [facility] Pcp Primary Care Provider Martina Cade MD Primary Care Provider Unavail Darin Ferrer MD Primary Care Provider [phone] Sushma Jin METAL BALER Primary Care Provider Aranza vailable Carolyn Skaggs MD Primary Care Prov ider Sushma Jin METAL BALER Primary Care Provider Aranza vailable Encounter Details Date Type Department Care Team Description 1999 [facility] - [address] [address] Arpita White MD SINGLE LIVEBORN, BORN IN [...] delivery documented in this encounter Care Teams Survey And Mapping Technician Relationship Specialty Start Date End Date Arpita White MD PCP - General 99 07/22/18 Shanique Ayala MD PCP - General 1999 99 [facility], Pcp PCP - General Internal Medicine 07/23/18 12/20/18 Martina Gonzalez MD PCP - General Internal Medicine 12/21/18 10/14/21 Darin Restrepo MD [address] [place] [address] PCP - General Internal Medicine 10/15/21 06/16/22 Sushma Jin NP [address] [place] [address] PCP - General Internal Medicine 06/17/22 09/04/22 Carolyn Skaggs MD [address] [place] [address] PCP - General Internal Medicine 09/05/22 11/11/23 Sushma Jin NP [address] [place] [address] PCP - General Internal Medicine 11/12/23 documented as of this encounter
--- OUTSIDE RECORDS SUMMARY | 2025-07-21 15:22 | XMS_ITS | Encounter Summary ---
Author Organization [facility] Address [address] [place] [address] Care Team Providers Care Mail Processing Machine Operator Name Role Phone Arpita White MD Primary Care Provider Ann Barone, Pcp Primary Care Provider Martina Cade MD Primary Care Provider Unavail Darin Ferrer MD Primary Care Provider [phone] Sushma Jin PRODUCTION ASSISTANT Primary Care Provider Aranza vailable Carolyn Skaggs MD Primary Care Prov ider Sushma Jin PRODUCTION ASSISTANT Primary Care Provider Aranza vailable Reason for Visit * Reason Comments E-prescribe Rx Request Encounter Details Date Type Department Care Team Description 04/01/2012 Refill Pediatrics - [address] [address] Arpita White MD E-prescribe Rx Request Social [...] on filedocumented in this encounter Care Teams Mail Processing Machine Operator Relationship Specialty Start Date End Date Arpita White MD PCP - General 99 07/22/18 [facility], Pcp PCP - General Internal Medicine 07/23/18 12/20/18 Martina Gonzalez MD PCP - General Internal Medicine 12/21/18 10/14/21 Darin Restrepo MD [address] [place] [address] PCP - General Internal Medicine 10/15/21 06/16/22 Sushma Jin NP [address] [place] [address] PCP - General Internal Medicine 06/17/22 09/04/22 Carolyn Skaggs MD [address] [place] [address] PCP - General Internal Medicine 09/05/22 11/11/23 Sushma Jin NP [address] [place], [place] [phone] PCP - General Internal Medicine 11/12/23 documented as of this encounter
--- OUTSIDE RECORDS SUMMARY | 2025-07-21 15:22 | XMS_ITS | Encounter Summary ---
Author Organization [facility] Address [address] [place] [address] Care Team Providers Care Upstream Biomanufacturing Technician Name Role Phone Arpita White MD Primary Care Provider Shanique Mccarthy MD [facility] Primary Care Provider Martina Cade MD Primary Care Provider Unavail Darin Ferrer MD Primary Care Provider [phone] Sushma Jin LEI MAKER Primary Care Provider Aranza vailable Carolyn Skaggs MD Primary Care Prov ider Sushma Jin LEI MAKER Primary Care Provider Aranza vailable Encounter Details Date Type Department Care Team Description 1999 [facility] - [address] [phone] Alecia Duarte [address] [place] [id number] DRUG WITHDRAWAL SYNDROME IN Social History Tobacco [...] in documented in this encounter Care Teams Upstream Biomanufacturing Technician Relationship Specialty Start Date End Date Arpita White MD PCP - General 99 07/22/18 Shanique Ayala MD PCP - General 1999 99 [facility], Pcp PCP - General Internal Medicine 07/23/18 12/20/18 Martina Gonzalez MD PCP - General Internal Medicine 12/21/18 10/14/21 Darin Restrepo MD [address] [place] [address] PCP - General Internal Medicine 10/15/21 06/16/22 Sushma Jin NP [address] [place] [address] PCP - General Internal Medicine 06/17/22 09/04/22 Carolyn Skaggs MD [address] [place] [address] PCP - General Internal Medicine 09/05/22 11/11/23 Sushma Jin NP [address] [place], [place] [address] PCP - General Internal Medicine 11/12/23 documented as of this encounter
--- OUTSIDE RECORDS SUMMARY | 2025-07-21 15:22 | XMS_ITS | Encounter Summary ---
Author Organization [facility] Address [address] [place] [address] Care Team Providers Care Metal Cnc Operator Name Role Phone [facility], Pcp Primary Care Provider Martina Cade MD Primary Care Provider Unavail able Darin Restrepo MD Primary Care Provider [phone] Sushma Jin CREDIT RELATIONSHIP MANAGER Primary Care Provider Aranza vailable Carolyn Skaggs MD Primary Care Prov ider Sushma Jin CREDIT RELATIONSHIP MANAGER Primary Care Provider Aranza vailable Encounter Details Date Type Department Care Team Description 07/31/2018 Addiction Specialist Report Medical Records [address] [place] [address] Cameron Jones Social History Tobacco Use Types [...] on filedocumented in this encounter Care Teams Metal Cnc Operator Relationship Specialty Start Date End Date [facility], Pcp PCP - General Internal Medicine 07/23/18 12/20/18 Martina Gonzalez MD PCP - General Internal Medicine 12/21/18 10/14/21 Darin Restrepo MD [address] [place] [address] PCP - General Internal Medicine 10/15/21 06/16/22 Sushma Jin NP [address] [place] [address] PCP - General Internal Medicine 06/17/22 09/04/22 Carolyn Skaggs MD [address] [place] [address] PCP - General Internal Medicine 09/05/22 11/11/23 Sushma Jin NP [address] [place] [address] PCP - General Internal Medicine 11/12/23 documented as of this encounter
--- OUTSIDE RECORDS SUMMARY | 2025-07-21 15:22 | XMS_ITS | Encounter Summary ---
Author Organization [facility] Address [address] [place] [address] Care Team Providers Care General Warehouse Worker Name Role Phone Arpita White MD Primary Care Provider Shanique Mccarthy MD [facility] Primary Care Provider Martina Cade MD Primary Care Provider Unavail Darin Ferrer MD Primary Care Provider [phone] Sushma Jin ENVIRONMENTAL PROTECTION FORESTER Primary Care Provider Aranza vailable Carolyn Skaggs MD Primary Care Prov ider Sushma Jin ENVIRONMENTAL PROTECTION FORESTER Primary Care Provider Aranza vailable Encounter Details Date Type Department Care Team Description 1999 [facility] - [address] [phone] Alecia Duarte [address] [place] [id number] DRUG WITHDRAWAL SYNDROME IN Social History Tobacco [...] in documented in this encounter Care Teams General Warehouse Worker Relationship Specialty Start Date End Date Arpita White MD PCP - General 99 07/22/18 Shanique Ayala MD PCP - General 1999 99 [facility], Pcp PCP - General Internal Medicine 07/23/18 12/20/18 Martina Gonzalez MD PCP - General Internal Medicine 12/21/18 10/14/21 Darin Restrepo MD [address] [place] [address] PCP - General Internal Medicine 10/15/21 06/16/22 Sushma Jin NP [address] [place] [address] PCP - General Internal Medicine 06/17/22 09/04/22 Carolyn Skaggs MD [address] [place] [address] PCP - General Internal Medicine 09/05/22 11/11/23 Sushma Jin NP [address] [place], [place] [id number] PCP - General Internal Medicine 11/12/23 documented as of this encounter
--- OUTSIDE RECORDS SUMMARY | 2025-07-21 15:22 | XMS_ITS | Clinical Summary ---
Author Organization [address] Address [address] [place] [phone] Phone Care Team Providers Care Oil Rag Washer Name Role Phone Unavailable Primary Care Provider Unavailabl e Allergies Active Allergy Reactions Criticality Noted Date Comments Cephalexin 10/23/2020 Burning sensation all over body. Doxycycline Hyclate 10/23/2020 hives Penaten 02/20/2023 Penicillin G Hives High 02/17/2023 Pt stated had bad reaction. She had hives all over the body. Sulfa (Sulfonamide Antibiotics) 03/06/2021 Medications cloNIDine (LEWIEYWQ-ZCV-3 ) 0.3 mg/[address] 1 Patch onto the skin once a week. 4 Active emollient comb no.2, bulk, ointment Apply 0.5 g topically 2 times daily. 5% gabapentin ointment Sig: Apply 0.5 g daily to affected area Patient phone number: [phone] (home) 3 Active cholecalciferol (VITAMIN D-3) 1,250 [...] processing disorder 08/27/2024 Overview (08/27/2024): according to [facility] hearing report dated 01-15-13 Report from [...] obesity with BMI of 6 0.0-69.9, adult ([facility] V24, [facility] V28) 08/27/2024 Chlamydia 11/14/2023 PCOS (polycystic [...] Recommended ACT -14 = 20 [facility]-04-[facility]08- no prob since 03-27-16: [facility] 5 d [facility] 40mg As [...] eval confirms dx of ADHD- accommodations in [employer], [employer], [employer]- full inclusion 03-07-15: normal [...] (Infanrix) 6wks to less than 7yo ,07/17/2000,1999,09/04,1999 KZwT-KED-PDH (Pentacel) 2mo to less than 5yo 06/18/2000,1999,1999,06/01 H1N1 Inj Preservative Free 12/22/2009 HPV, Quadrivalent 04/30/2013,07/14/2012,04/14/20 12 Hepatitis B (Wzfobzo-A-Bqack , Recombivax HB-Adult) 19yo and older 07/12/2020,02/09/2020,01/05/2020 [...] 04/27/2003,06/12/2000 Meningococcal MCV4P 08/08/2015,04/14/2012 PPD Test 11/10/2019 raksul SARS-CoV-2 COVID-19, mRNA, LNP-S, preservative free 09/04/2021 [...] TUBES OTHER SURGICAL HISTORY age 1.5yr PROCEDURE: VA BRONCHOSCOPY W/TRANSBRONCHIAL LUNG BX 1 LOBE EYE [...] 2:00 PM EST Office Visit Nephrology - [facility] [address] [place] [address] Christopher Pollard MD [address] [place] [address] Health Maintenance Due Date Last [...] BMP Blood Test (01/22/2024) Pathologist [facility] Annual BMP Blood Test abstracted [facility] Provider MD HEALTH MAINTENANCE Final Result * Gonorrhea/Chlamydia Screening (11/13/2023) Pathologist [facility] Gonorrhea/Chla mydia Screening abstracted [facility] Provider MD HEALTH MAINTENANCE Final Result * Depression Screening (10/06/2023) Pathologist [facility] Depression Screening abstracted [facility] Provider MD HEALTH MAINTENANCE Final Result * Lipid panel (12/06/2022) [facility] LDL/HDL Ratio 2 0 - 4 Triglycerides 71 0 - 150 mg/dL Cholesterol 117 0 - 200 mg/dL HDL 48 >=40 mg/dL LDL Cholesterol 55 0 - 100 mg/dL Blood Venous blood specimen / Unknown us Historical Provider LAB BLOOD ORDERABLES [facility] l Result * Pap smear (09/05/2022) 09/05/2022 Narrative HISTORICAL TESTING LAB RESULTING AGENCY - 09/12/2022 7:30 AM EDT [id number] THINPREP PAP, IMAGED: NEGATIVE FOR SQUAMOUS INTRAEPITHELIAL [...]
--- OUTSIDE RECORDS SUMMARY | 2025-07-21 15:22 | XMS_ITS | Encounter Summary ---
Author Organization [facility] Address [address] [place] [address] Care Team Providers Care Entry Level Account Representative Name Role Phone Arpita White MD Primary Care Provider Shanique Mccarthy MD Primary Care Provider [facility] Pcp Primary Care Provider Martina Cade MD Primary Care Provider Unavail Darin Ferrer MD Primary Care Provider [phone] Sushma Jin SKIING INSTRUCTOR Primary Care Provider Aranza vailable Carolyn Skaggs MD Primary Care Prov ider Sushma Jin SKIING INSTRUCTOR Primary Care Provider Aranza vailable Encounter Details Date Type Department Care Team Description 1999 [facility] - [address] [address] Ninfa Parra [address] [place] [id number] DRUG WITHDRAWAL SYNDROME IN Social History Tobacco [...] in documented in this encounter Care Teams Entry Level Account Representative Relationship Specialty Start Date End Date Arpita White MD PCP - General 99 07/22/18 Shanique Ayala MD PCP - General 1999 [facility], Pcp PCP - General Internal Medicine 07/23/18 12/20/18 Martina Gonzalez MD PCP - General Internal Medicine 12/21/18 10/14/21 Darin Restrepo MD [address] [place] [address] PCP - General Internal Medicine 10/15/21 06/16/22 Sushma Jin NP [address] [place] [address] PCP - General Internal Medicine 06/17/22 09/04/22 Carolyn Skaggs MD [address] [place] [address] PCP - General Internal Medicine 09/05/22 11/11/23 Sushma Jin NP [address] [place], [place] [id number] PCP - General Internal Medicine 11/12/23 documented as of this encounter
--- OUTSIDE RECORDS SUMMARY | 2025-07-21 15:22 | XMS_ITS | Encounter Summary ---
Author Organization [facility] Address [address] [place] [address] Care Team Providers Care Molding Sander Name Role Phone Arpita White MD Primary Care Provider Shanique Mccarthy MD Primary Care Provider Brand[facility] Pcp Primary Care Provider Martina Cade MD Primary Care Provider Unavail Darin Ferrer MD Primary Care Provider [phone] Sushma Jin SUPERVISOR CORE SHOP Primary Care Provider Aranza vailable Carolyn Skaggs MD Primary Care Prov ider Sushma Jin SUPERVISOR CORE SHOP Primary Care Provider Aranza vailable Encounter Details Date Type Department Care Team Description 1999 [facility] - [address] [address] Arpita White MD SINGLE LIVEBORN, BORN IN [...] delivery documented in this encounter Care Teams Molding Sander Relationship Specialty Start Date End Date Arpita White MD PCP - General 99 07/22/18 Shanique Ayala MD PCP - General 1999 99 [facility], Pcp PCP - General Internal Medicine 07/23/18 12/20/18 Martina Gonzalez MD PCP - General Internal Medicine 12/21/18 10/14/21 Darin Restrepo MD [address] [place] [address] PCP - General Internal Medicine 10/15/21 06/16/22 Sushma Jin NP [address] [place] [address] PCP - General Internal Medicine 06/17/22 09/04/22 Carolyn Skaggs MD [address] [place] [address] PCP - General Internal Medicine 09/05/22 11/11/23 Sushma Jin NP [address] [place] [address] PCP - General Internal Medicine 11/12/23 documented as of this encounter
--- OUTSIDE RECORDS SUMMARY | 2025-07-21 15:22 | XMS_ITS | Encounter Summary ---
Author Organization [facility] Address [address] [place] [address] Care Team Providers Care Hotel Recreational Facilities Manager Name Role Phone Arpita White MD Primary [facility] Primary [facility] Primary Care Provider Unavail Darin Ferrer MD Primary Care Provider [phone] Sushma Jin LOAN INTERVIEWER Primary Care Provider Aranza vailable Carolyn Skaggs MD Primary Care Prov ider Sushma Jin LOAN INTERVIEWER Primary Care Provider Aranza vailable Encounter Details Date Type Department Care Team Description 06/06/2017 Release of Information Medical Records [address] [place] [id number] Abstract, Provider Social History Tobacco Use Types [...] on filedocumented in this encounter Care Teams Hotel Recreational Facilities Manager Relationship Specialty Start Date End Date Arpita White MD PCP - General 99 07/22/18 [facility], Pcp PCP - General Internal Medicine 07/23/18 12/20/18 Martina Gonzalez MD PCP - General Internal Medicine 12/21/18 10/14/21 Darin Restrepo MD [address] [place] [address] PCP - General Internal Medicine 10/15/21 06/16/22 Sushma Jin NP [address] [place] [address] PCP - General Internal Medicine 06/17/22 09/04/22 Carolyn Skaggs MD [address] [place] [address] PCP - General Internal Medicine 09/05/22 11/11/23 Sushma Jin NP [address] [place] [address] PCP - General Internal Medicine 11/12/23 documented as of this encounter
--- OUTSIDE RECORDS SUMMARY | 2025-07-21 15:22 | XMS_ITS | Encounter Summary ---
Author Organization [facility] Address [address] [place] [address] Care Team Providers Care Industrial Relations Director Name Role Phone Arpita White MD Primary Care Provider Shanique Mccarthy MD Primary Care Provider Brandee [facility] Pcp Primary Care Provider Martina Cade MD Primary Care Provider Unavail Darin Ferrer MD Primary Care Provider [phone] Sushma Jni CYTOGENETICIST Primary Care Provider Aranza vailable Carolyn Skaggs MD Primary Care Prov ider Sushma Jin CYTOGENETICIST Primary Care Provider Aranza vailable Encounter Details Date Type Department Care Team Description 1999 [facility] - [address] [phone] Live Orellana MD DRUG WITHDRAWAL SYNDROME IN ; UNSPECIFIED AND JAUNDICE Social History Tobacco Use Types Packs/Day Years Used Date Smoking Tobacco: Never Assessed Sex Assigned at Date Recorded Female 03/19/2022 3:55 PM EDT Job Start Date Occupation Industry Not on file Not on file Not on file documented as of this encounter Plan of Treatment Not on file documented as of this encounter Visit Diagnoses Diagnosis Drug withdrawal syndrome in Unspecified and jaundice documented in this encounter Care Teams Industrial Relations Director Relationship Specialty Start Date End Date Arpita White MD PCP - General 99 07/22/18 Shanique Ayala MD PCP - General 1999 99 [facility], Pcp PCP - General Internal Medicine 07/23/18 12/20/18 Martina Gonzalez MD PCP - General Internal Medicine 12/21/18 10/14/21 Darin Restrepo MD [address] [place] [address] PCP - General Internal Medicine 10/15/21 06/16/22 Sushma Jin NP [address] [place] [address] PCP - General Internal Medicine 06/17/22 09/04/22 Carolyn Skaggs MD [address] [place] [address] PCP - General Internal Medicine 09/05/22 11/11/23 Sushma Jin NP [address] [place] [address] PCP - General Internal Medicine 11/12/23 documented as of this encounter
--- OUTSIDE RECORDS SUMMARY | 2025-07-21 15:22 | XMS_ITS | Encounter Summary ---
Author Organization [facility] Address [address] [place] [address] Care Team Providers Care Clamp Truck Driver Name Role Phone Arpita White MD Primary Care Provider Shanique Mccarthy MD Primary Care Provider Brandee cano [facility], Pcp Primary Care Provider Martina Cade MD Primary Care Provider Unavail Darin Ferrer MD Primary Care Provider [phone] Sushma Jin HAUNTED HISTORY TOUR GUIDE Primary Care Provider Aranza vailable Carolyn Skaggs MD Primary Care Prov ider Sushma Jin HAUNTED HISTORY TOUR GUIDE Primary Care Provider Aranza vailable Encounter Details Date Type Department Care Team Description 1999 [facility] - [address] [address] Live Orellana MD DRUG WITHDRAWAL SYNDROME IN [...] in documented in this encounter Care Teams Clamp Truck Driver Relationship Specialty Start Date End Date Arpita White MD PCP - General 99 07/22/18 Shanique Ayala MD PCP - General 1999 99 [facility], Pcp PCP - General Internal Medicine 07/23/18 12/20/18 Martina Gonzalez MD PCP - General Internal Medicine 12/21/18 10/14/21 Darin Restrepo MD [address] [place] [address] PCP - General Internal Medicine 10/15/21 06/16/22 Sushma Jin NP [address] [place] [address] PCP - General Internal Medicine 06/17/22 09/04/22 Carolyn Skaggs MD [address] [place] [address] PCP - General Internal Medicine 09/05/22 11/11/23 Sushma Jin NP [address] [place] [address] PCP - General Internal Medicine 11/12/23 documented as of this encounter
--- OUTSIDE RECORDS SUMMARY | 2025-07-21 15:22 | XMS_ITS | Encounter Summary ---
Author Organization [facility] Address [address] [place] [address] Care Team Providers Care Port Drier Name Role Phone Arpita White MD Primary Care Provider [facility], Pcp Primary [facility] Provider [facility] Primary Care Provider Unavail Darin Ferrer MD Primary Care Provider [phone] Sushma Jin POULTRY FIELD SERVICE TECHNICIAN Primary Care Provider Aranza vailable Carolyn Skaggs MD Primary Care Prov ider Sushma Jin POULTRY FIELD SERVICE TECHNICIAN Primary Care Provider Aranza vailable Encounter Details Date Type Department Care Team Description 07/28/2014 Release of Information Medical Records [address] [place] [id number] Abstract, Provider Social History Tobacco Use Types [...] on filedocumented in this encounter Care Teams Port Drier Relationship Specialty Start Date End Date Arpita White MD PCP - General 99 07/22/18 [facility], Pcp PCP - General Internal Medicine 07/23/18 12/20/18 Martina Gonzalez MD PCP - General Internal Medicine 12/21/18 10/14/21 Darin Restrepo MD [address] [place] [address] PCP - General Internal Medicine 10/15/21 06/16/22 Sushma Jin NP [address] [place] [address] PCP - General Internal Medicine 06/17/22 09/04/22 Carolyn Skaggs MD [address] [place] [address] PCP - General Internal Medicine 09/05/22 11/11/23 Sushma Jin NP [address] [place], [place] [address] PCP - General Internal Medicine 11/12/23 documented as of this encounter
== END 2025-07-21 15:23 | disposition home or self-care (01) ==
LOC: HO.HBS 14:46
PROVIDERS: PCP Internal Medicine; Visit Provider Physician Assistant Surgical
DX: Z98.84 Bariatric surgery status (principal)
CPT/HCPCS: 99024

== ENCOUNTER → 2025-07-21 14:45 | Outpatient (BNVA) | payer OTHER, SELFPAY | PROVIDERS: PCP Internal Medicine; Visit Provider Physician Assistant Surgical | DX: Z48.815 Encounter for surgical aftercare following surgery on the digestive system (principal); Z98.84 Bariatric surgery status | CPT/HCPCS: 99212 ==

== ENCOUNTER 2025-08-02 08:06 | Outpatient (REF) | payer OTHER, SELFPAY ==
--- NOTE | 2025-08-02 08:09 | EMG_ITS ---
Chief complaint: Numbness and tingling of hands Reason for referral: NCV/ EMG Referred by: CHERYL Freeman Procedure done: Nerve conduction study and EMG was performed on bilateral upper extremities Bilateral median and ulnar motor and sensory studies were performed an EMG needle examination was performed. 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
== END 2025-08-02 08:07 | disposition home or self-care (01) ==
LOC: HO.NEURO 08:06
DX: G56.13 Other lesions of median nerve, bilateral upper limbs (principal); R20.0 Anesthesia of skin; R20.2 Paresthesia of skin
CPT/HCPCS: 95886; 95911

== ENCOUNTER → 2025-08-02 08:09 | Outpatient (BNV) | payer OTHER, SELFPAY | PROVIDERS: Visit Provider Psychiatry & Neurology Neurology | DX: G56.02 Carpal tunnel syndrome, left upper limb (principal) | CPT/HCPCS: 95886; 95911 ==

== ENCOUNTER 2025-08-11 13:51 | Outpatient (AMB) | payer MEDICARE, SELFPAY ==
--- NOTE | 2025-08-11 13:54 | A.OFFVIS_ITS ---
Vital Signs 08/11/25 13:58 Height 5 ft 3 in Weight 281 lb 8 oz BMI 49.9 BP 124/84 Blood Pressure Location Rt brachial Position Sitting Pulse 102 H Pulse Source Pulse Oximeter Pulse Oximetry (%) 99 Oxygen Delivery Method Room Air Intake Visit Reasons: 3m follow up Intake Note: Patient presents follow up Sleep/Migraine. Compliance in chart 04/30/25- 07/11/25(37/73days, >=4hrs-42%, Average Usage-2hr 26min, IPAP-21, EPAP-14, Med leaks-11.6, AHI-4.8). Not using CPAP anymore. Patient states 4-5migraines per month. Accompanied by: Self / Same As Patient Allergies cephalexin (From Keflex) Allergy (Intermediate, Verified 08/11/25 14:00) Redness of Skin doxycycline Allergy (Intermediate, Verified 08/11/25 14:00) Hives Penicillins Allergy (Intermediate, Verified 08/11/25 14:00) Hives, burning sensation Sulfa (Sulfonamide Antibiotics) Allergy (Intermediate, Verified 08/11/25 14:00) Hives,palpatations HPI Comments Details: 25 year r. handed female with h/o PCOS presents for a f/u appt for AIDAN. 03/2025 Split night study baseline study consistent with severe aidan, AHI 73 and REM AHI was 124 with oxygen desaturation to 53%, there were frequent residual events with cpap and bipap , she was tried on cpap 4, and bipap 25/20. Breathing and oxygenation stabilized on bipap 25/21 to 21/14. Trial pt. on bipap 21/14 and f/u for compliance. [facility] Compliance Report April 2025 - Jun 2025 Total avg use is 37/73days, >=4hrs-42%, Avg daily use is 2hr 26min IPAP-21, EPAP-14, Med leaks-11.6, AHI-4.8) She washes her mask, rinses hoses, changes filters and fills the reservoir with water. Labs reviwed with pt. Vit D is low she is on a multi vitamin prescribed by weight management. Interval Med Hx: 06/2025 Pt. underwent gastic sleeve, she is on a liquid diet with protein bars, nervous to start solid and is having severe acid reflux, despite taking zofran. She could not tolerate the pressures of the Bipap anymore, it was causing her to have more migraines. She was having mask leaks and felt as if she could not breath due to the leaks, she could not get a seal. She has a h/o of asthma and this made her more anxious. Her snoring was improved, and no longer talks in her sleep. She feels uncomfortable has pcos, with vasomotor like symptoms of hot flashes, and her entire body feels like it is on fire, she takes a shower and still feels warm. Denies sweating, has food cravings, mood irritability, and anxiety managed with zoloft. RLS symptoms, she has bilateral paresthesias in hands, NCS / EMG is + for CTS. She does not have uncomfortable sensations at night in her legs. She has daily headaches, which can become migraines if not controlled and has increased 2-3/week since surgery. They start on the L. side of the head frontal to parietal and radiates to the occipital lobe with pressure and tightness. She denies photophobia / phonophobia with. She can have a dull pain 5/10 waxes and wanes, manageable with diet and lifestyle. She takes tylenol and it improves. She has T2DM, PCOS, and will start zepbound 2.5mg x 1 week for 4weeks, then increase to 5mg subcut every week. [facility] Medical History Annual physical exam Well woman exam with routine gynecological exam Morbid obesity with BMI of 60.0-69.9, adult Screening for cervical cancer Sleep apnea treated with nocturnal bilevel positive airway pressure (BPAP) Sleep apnea PCOS (polycystic ovarian syndrome) Migraines ADHD (attention deficit hyperactivity disorder) Depression GERD (gastroesophageal reflux disease) Morbid obesity Asthma High blood pressure Surgical History S/P gastric sleeve procedure S/P tonsillectomy History of eye surgery Family History Maternal Grandmother Breast cancer Mother Diabetes Other HTN (hypertension) Social History Household Members: None Housing: Apartment Are you a primary ocular care technician to a significant other at home: No Do you presently have visiting nurse or other home services: No Alcohol intake: current Alcohol intake frequency: holidays/special occasions only Patient Tobacco Use Status: Never used Tobacco e-Cigarette/Vaping Use: Never Used Second Hand Smoke Exposure: No service: No Current occupational status: employed Cognitive needs: No Hearing needs: No Vision needs: Yes (Glasses) Female Reproductive History Menstrual Age of Menarche: 11 Physical Exam Vital Signs: Last Vital Signs Pulse 102 H 08/11/25 13:58 BP 124/84 08/11/25 13:58 Pulse Ox 99 08/11/25 13:58 Oxygen Delivery Method Room Air 08/11/25 13:58 BMI result Body Mass Index 49.9 BMI is elevated to 49.9 and patient, pauses with bouts of nauseau during history taking. Const General: cooperative, no acute distress and tired appearing Nutritional Appearance: obese Orientation/consciousness: patient oriented x3 HEENT Head: Yes normocephalic Face and sinus: Yes face symmetric Throat: Yes other ([place] score of 4) Eyes Pupils: Equal, round and reactive pupils present Neck Other: Very tight scalene and trapezius. Neck: Yes full ROM and Yes supple Resp Effort & Inspection: able to speak in complete sentences Neuro General: patient oriented x3 and moves all extremities Cranial nerves: Yes Facial sensation intact/muscles of mastication intact, Yes Equal, round and reactive pupils present, Yes Normal accommodation reflex present, Yes Bilaterally intact EOM present, Yes Normal facial strength present, Yes Midline tongue present, Yes Ability to bilaterally rotate head present (pain on lateral rom to the l/r) and Yes Ability to bilaterally elevate shoulders present Cognition (Neuro): normal cognition Gait exam (Neuro): Normal gait present Motor exam (neuro): 5/5 motor strength present throughout and Normal motor muscle tone present throughout Psych Other: facial hair Appearance: grossly normal Thought process: Normal thought process present Thought content: Normal thought content present Results Reviewed Results Reviewed: [facility] Compliance Report April 2025 - Jun 2025 Total avg use is 37/73days, >=4hrs-42%, Avg daily use is 2hr 26min IPAP-21, EPAP-14, Med leaks-11.6, AHI-4.8) She washes her mask, rinses hoses, changes filters and fills the reservoir with water. Labs reviwed with pt. Vit D is low she is on a multi vitamin prescribed by weight management. Assessment & Plan Assessment & Plan (1) Obstructive sleep apnea: Code(s): G47.33 - Obstructive sleep apnea (adult) (pediatric) Category: Medical (2) Fatigue due to sleep pattern disturbance: Code(s): R53.83 - Other fatigue; G47.9 - Sleep disorder, unspecified Category: Medical (3) History of difficulty sleeping: Code(s): Z72.821 - Inadequate sleep hygiene Category: Medical (4) Morbid obesity with BMI of 60.0-69.9, adult: Code(s): E66.01 - Morbid (severe) obesity due to excess calories; Z68.44 - Body mass index [BMI] 60.0-69.9, adult Category: Medical (5) Migraine: Comment: >15 headaches, which can evolve into migraines declines sumatriptan today. Code(s): G43.909 - Migraine, unspecified, not intractable, without status migrainosus Category: Medical Qualifiers: Migraine type: chronic migraine (15 or more days per month) without aura Status migrainosus presence: without status migrainosus Intractability: intractable Qualified Code(s): G43.719 - Chronic migraine without aura, intractable, without status migrainosus (6) RLS (restless legs syndrome): Code(s): G25.81 - Restless legs syndrome Category: Medical (7) Sleep apnea treated with nocturnal bilevel positive airway pressure (BPAP): Code(s): G47.30 - Sleep apnea, unspecified Category: Medical (8) PCOS (polycystic ovarian syndrome): Code(s): E28.2 - Polycystic ovarian syndrome Category: Medical Plan Labs reviewed with pt. vit d is low and T2DM is better managed, she is on a multivitamin per weight mgmt. BMI is 49.9 Weight Management Headache / Migraine will f/u at next visit. Sumatriptan declined today. RLS? ncs and emg + for CTS and she has paresthesias in both upper and lower extremities. Start Gabapentin 300mg po qpm. Patient education provided re importance of compliance of Bipap >4 hours. F/U in 3 months Medications: New gabapentin 300 mg (3 x 100 mg) PO BEDTIME 180 caps 0RF RLS 2 months MDD 300mg G25.81 - Restless legs syndrome Coding Level of Care Code Est Pt Level 4 (89139) Diagnoses Obstructive sleep apnea G47.33 Fatigue due to sleep pattern disturbance R53.83; G47.9 History of difficulty sleeping Z72.821 Morbid obesity with BMI of 60.0-69.9, adult E66.01; Z68.44 Intractable chronic migraine without aura and without status migrainosus G43.7 19 Migraine type: chronic migraine (15 or more days per month) without aura Status migrainosus presence: without status migrainosus Intractability: intractable RLS (restless legs syndrome) G25.81 Sleep apnea treated with nocturnal bilevel positive airway pressure (BPAP) G47.30 PCOS (polycystic ovarian syndrome) E28.2
[2025-08-11 13:58] VITALS: BP 124/84; PULSE 102; O2SAT 99; BMI 49.9
--- OUTSIDE RECORDS SUMMARY | 2025-08-11 15:54 | XMS_ITS | Encounter Summary ---
Author Organization [facility] Address [address] [place] [address] Care Team Providers Care Hot Man Name Role Phone Darin Restrepo MD Primary Care Provider [phone] Sushma Jin SEO COORDINATOR Primary Care Provider Aranza vailable Carolyn Skaggs MD Primary Care Prov ider Sushma Jin SEO COORDINATOR Primary Care Provider Aranza vailable Reason for Visit * Reason Onset Date Comments LAB WORK 12/12/2021 Encounter Details Date Type Department Care Team Description 12/12/2021 Telephone General Surgery - [address] [place] [id number] Nora Castillo, ,JACKN,LDN LAB WORK Social History Tobacco Use Types Packs/Day Years [...] have Coronavirus / COVID-19? No / Unsure 12/14/2021 9:03 AM EST documented as of this encounter Miscellaneous Notes * Telephone Encounter - Nora Castillo MS,JACKN,LDN - 12/12/2021 1:07 PM EST Please order bariatric labs documented in this encounter Plan of Treatment Not on file documented as of this encounter Visit Diagnoses Not on filedocumented in this encounter Care Teams Hot Man Relationship Specialty Start Date End Date Darin Restrepo MD [address] [place] [address] PCP - General Internal Medicine 10/15/21 06/16/22 Sushma Jin SEO COORDINATOR [address] [place] [address] PCP - General Internal Medicine 06/17/22 09/04/22 Carolyn Skaggs MD [address] [place] [address] PCP - General Internal Medicine 09/05/22 11/11/23 Sushma Jin SEO COORDINATOR [address] [place] [address] PCP - General Internal Medicine 11/12/23 documented as of this encounter
--- OUTSIDE RECORDS SUMMARY | 2025-08-11 15:54 | XMS_ITS | Encounter Summary ---
Author Organization [facility] Address [address] [place] [address] Care Team Providers Care Machine Biller Name Role Phone Martina Gonzalez MD Primary Care Provider Unavail able Darin Restrepo MD Primary Care Provider [phone] Sushma Jin AUTOMATED MANUFACTURING INSTRUCTOR Primary Care Provider Aranza vailable Carolyn Skaggs MD Primary Care Prov ider Sushma Jin AUTOMATED MANUFACTURING INSTRUCTOR Primary Care Provider Aranza vailable Encounter Details Date Type Department Care Team Description 07/16/2019 Architecture Consultant Report Medical Records [address] [place] [id number] Cameron Jones Social History Tobacco Use Types [...] on filedocumented in this encounter Care Teams Machine Biller Relationship Specialty Start Date End Date Martina Gonzalez MD PCP - General Internal Medicine 12/21/18 10/14/21 Darin Restrepo MD [address] [place] [id number] PCP - General Internal Medicine 10/15/21 06/16/22 Sushma Jin NP [address] [place] [address] PCP - General Internal Medicine 06/17/22 09/04/22 Carolyn Skaggs MD [address] [place] [address] PCP - General Internal Medicine 09/05/22 11/11/23 Sushma Jin NP [address] [place] [address] PCP - General Internal Medicine 11/12/23 documented as of this encounter
--- OUTSIDE RECORDS SUMMARY | 2025-08-11 15:54 | XMS_ITS | Encounter Summary ---
Author Organization [facility] Address [address] [place] [address] Care Team Providers Care Heel Washer Stringing Machine Operator Name Role Phone Darin Restrepo MD Primary Care Provider [phone] Sushma Jin PAROLE DIRECTOR Primary Care Provider Aranza vailable Carolyn Skaggs MD Primary Care Prov ider Sushma Jin PAROLE DIRECTOR Primary Care Provider Aranza vailable Reason for Visit * Reason Comments E-prescribe Rx Request Encounter Details Date Type Department Care Team Description 01/31/2022 Refill General Surgery - [address] [place] [id number] Antonieta Bojorquez MD [address] [place] [address] [address] [place] [address] E-prescribe Rx Request Social History Tobacco Use [...] (HCC) documented in this encounter Care Teams Heel Washer Stringing Machine Operator Relationship Specialty Start Date End Date Darin Restrepo MD [address] [place] [address] PCP - General Internal Medicine 10/15/21 06/16/22 Sushma Jin NP [address] [place] [address] PCP - General Internal Medicine 06/17/22 09/04/22 Carolyn Skaggs MD [address] [place] [address] PCP - General Internal Medicine 09/05/22 11/11/23 Sushma Jin NP [address] [place] [address] PCP - General Internal Medicine 11/12/23 documented as of this encounter
--- OUTSIDE RECORDS SUMMARY | 2025-08-11 15:54 | XMS_ITS | Encounter Summary ---
Author Organization [facility] Address [address] [place] [address] Care Team Providers Care Social Services Counselor Name Role Phone Arpita White MD Primary Care Provider Shanique Mccarthy MD Primary Care Provider Brandee [facility] Pcp Primary Care Provider Martina Cade MD Primary Care Provider Unavail Darin Ferrer MD Primary Care Provider [phone] Sushma Jin POWER WOOD SAWYER Primary Care Provider Aranza vailable Carolyn Skaggs MD Primary Care Prov ider Sushma Jin POWER WOOD SAWYER Primary Care Provider Aranza vailable Encounter Details Date Type Department Care Team Description 1999 Resolute Data [facility] - [address] [id number] Live Orellana MD UNSPECIFIED VIRAL INFECTION Social [...] site documented in this encounter Care Teams Social Services Counselor Relationship Specialty Start Date End Date Arpita White MD PCP - General 99 07/22/18 Shanique Ayala MD PCP - General 1999 99 [facility], Pcp PCP - General Internal Medicine 07/23/18 12/20/18 Martina Gonzalez MD PCP - General Internal Medicine 12/21/18 10/14/21 Darin Restrepo MD [address] [place] [address] PCP - General Internal Medicine 10/15/21 06/16/22 Sushma Jin NP [address] [place], [place] [id number] PCP - General Internal Medicine 06/17/22 09/04/22 Carolyn Skaggs MD [address] [place] [address] PCP - General Internal Medicine 09/05/22 11/11/23 Sushma Jin NP [address] [place] [address] PCP - General Internal Medicine 11/12/23 documented as of this encounter
--- OUTSIDE RECORDS SUMMARY | 2025-08-11 15:54 | XMS_ITS | Clinical Summary ---
Author Organization [facility] Address [address] [place] [address] Care Team Providers Care Foundation Engineer Name Role Phone Sushma Jin NP Primary [...] 02/20/2023 Active Cholecalciferol (Vitamin D3) 1.25 MG (50431 UT) CapIndications:Vit salmon D deficiency Take 1 [...] daily to affected area Patient phone number: [phone] (home) 30 g 1 11/13/2023 Active Fluticasone-Salmet [...] Educational Resources Center for Disease Control (www.cdc.gov/ncbddd/adhd/) [place] [employer] Pediatrics (www.aap.org/healthtopics/adhd.cfm) National Resource Center for ADHD (www.imum4nmfh.org) Children and Adults with Attention Deficit Hyperactivity Disorder (www.júnior.org) [place] Child [facility] Access Project (www.[facility]) This care plan was created in collaboration [...] transition o f short term memory to medical terminologist memory and working memory inefficiency 12/21/2014 Overview: Updated Core testing report 10-05-14- WISC- IV full scale = 83 = low average Communication disability 12/21/2014 Overview: 11: 3yr reevaluation CORE Menorrhagia 07/14/2012 Overview: [facility], has tiffany hahn Last Assessment & [...] Recommended ACT 06-06 = 20 05-04-15: [facility] - asthma exacerbation as of 08-08- no prob since 03-27-16: [facility] 5 d pred 40mg As [...] eval confirms dx of ADHD- accommodations in [employer], [place]- full inclusion 03-07-15: normal [...] Central auditory processing disorder Overview: according to [facility] hearing report dated 01-15-13 Report [...] Vaccine-preservati ve Free-quadrivalent 4 Years 10/06/2023 MMR (Ntofggz-Soeli-Qjkkfii) 04/27/2003, 0 Meningococcal (Menactra) 08/08/2015,04/14/2012 PPD-RBMG 11/10/2019 Pneumococcal Conjugate PCV-13 08/31/2019 Pneumococcal(Pedi) Conjugate PCV-7 04/14/2001, Polio (IPV) 05/01/2004, 0,1999,06/01 Rabies-Vaccine IM 04/09/2006,03/15/2006 Tdap 04/11/2011 Varicella 12/22/2009,06/12/2000 Family History Medical History Relation Name Comments Diabetes Maternal Grandfather Hypertension Maternal Grandfather IA Maternal Grandfather Cancer of the Breast Maternal [...] Maintenance Due Date Last Done Comments DEPRESSION SCREEN 10/06/2024 10/06/2023, , 05/31/2019 BMI CHECK/ADVISE 11/24/2024 03/10/2024, , 03/12/2023, Additional history exists DEPRESSION SCREENING/FOLLOWUP 11/24/2024 02/20/2023, 05/31/2019 SOCIAL NEEDS SCREENING 11/24/2024 , 10/06/2023, 05/31/2019 Covid-19 Vaccine (2022-12 4 season) 2025 09/04/2021, 01/29/2021, 01/29/2021, Additional history exists INFLUENZA (#1) 2025 10/06/2023, 08/24, 08/31/2019 (External Completion), Additional history exists CERVICAL CANCER SCREENING 09/05/2025 09/05/2022 CHOLESTEROL SCREENING 12/06/2027 12/06/2022 , 12/14/2021, 09/19/2021, Additional history exists BASELINE HEALTH EXAM 18-39 10/06/202810/06, 02/27/2022, 08/08/2021, Additional history exists DTAP/TDAP/TD (8 - Td or Tdap) 04/27/2031, 04/11/2011, 05/01/2004, Additional history exists PNEUMOCOCCAL VACCINE FOR HIG H RISK PATIENTS (#2) 2064 08/31/2019, 08/31/2019 Care Teams Foundation Engineer Relationship Specialty Start Date End Date Sushma Jin NP PCP - General Internal Medicine 11/12/23
--- OUTSIDE RECORDS SUMMARY | 2025-08-11 15:54 | XMS_ITS | Encounter Summary ---
Author Organization [facility] Address [address] [place] [address] Care Team Providers Care Crystal Flat Grinder Name Role Phone Martina Gonzalez MD Primary Care Provider Unavail able Darin Restrepo MD Primary Care Provider [phone] Sushma Jin NP Primary Care Provider Aranza vailable Carolyn Skaggs MD Primary Care Prov ider Sushma Jin DRAFTER APPRENTICE Primary Care Provider Aranza vailable Encounter Details Date Type Department Care Team Description 08/09/2019 Philosophy Lecturer Report Medical Records [address] [place] [address] [place] Princess [place] Social History Tobacco Use [...] on filedocumented in this encounter Care Teams Crystal Flat Grinder Relationship Specialty Start Date End Date Martina Gonzalez MD PCP - General Internal Medicine 12/21/18 10/14/21 Darin Restrepo MD [address] [place] [address] [phone] PCP - General Internal Medicine 10/15/21 06/16/22 Sushma Jin NP [address] [place] [address] PCP - General Internal Medicine 06/17/22 09/04/22 Carolyn Skaggs MD [address] [place] [address] PCP - General Internal Medicine 09/05/22 11/11/23 Sushma Jin NP [address] [place] [address] PCP - General Internal Medicine 11/12/23 documented as of this encounter
--- OUTSIDE RECORDS SUMMARY | 2025-08-11 15:54 | XMS_ITS | Encounter Summary ---
Author Organization [facility] Address [address] [place] [address] Care Team Providers Care Greaser Helper Name Role Phone Martina Gonzalez MD Primary Care Provider Unavail able Darin Restrepo MD Primary Care Provider [phone] Sushma Jin HOOP COILER Primary Care Provider Aranza vailable Carolyn Skaggs MD Primary Care Prov ider Sushma Jin HOOP COILER Primary Care Provider Aranza vailable Encounter Details Date Type Department Care Team Description 05/31/2019 Orders Only Adult Medicine [address] [phone] Martina Gonzalez MD Vitamin D deficiency (Primary [...] deficiency documented in this encounter Care Teams Greaser Helper Relationship Specialty Start Date End Date Martina Gonzalez MD PCP - General Internal Medicine 12/21/18 10/14/21 Darin Restrepo MD [address] [place] [address] PCP - General Internal Medicine 10/15/21 06/16/22 Sushma Jin NP [address] [place] [address] PCP - General Internal Medicine 06/17/22 09/04/22 Carolyn Skaggs MD [address] [place] [address] PCP - General Internal Medicine 09/05/22 11/11/23 Sushma Jin NP [address] [place] [address] PCP - General Internal Medicine 11/12/23 documented as of this encounter
--- OUTSIDE RECORDS SUMMARY | 2025-08-11 15:55 | XMS_ITS | Encounter Summary ---
Author Organization [facility] Address [address] [place] [address] Care Team Providers Care Extrusion Bender Name Role Phone Carolyn Skaggs MD Primary Care Prov ider Sushma Jin NP Primary Care Provider Aranza vailable Reason for Visit * Reason Onset Date Comments LAB WORK 12/05/2022 Encounter Details Date Type Department Care Team Description 12/05/2022 Telephone Bariatric Surgery - [address] [place] [address] Nora Castillo, ,JACKN,LDN LAB WORK Social [...] Notes * Telephone Encounter - Nora Castillo MS,PILAR,MAYAN - 12/05/2022 8:51 AM EST Please re-order bariatric labs, as patient's will this month. Thank you! documented in this encounter Plan of Treatment Not on file documented as of this encounter Visit Diagnoses Not on filedocumented in this encounter Care Teams Extrusion Bender Relationship Specialty Start Date End Date Carolyn Skaggs MD [address] [place] [address] PCP - General Internal Medicine 09/05/22 11/11/23 Sushma Jin NP [address] [place] [address] PCP - General Internal Medicine 11/12/23 documented as of this encounter
--- OUTSIDE RECORDS SUMMARY | 2025-08-11 15:55 | XMS_ITS | Encounter Summary ---
Author Organization [facility] Address [address] [place] [address] Care Team Providers Care Manager Of Maintenance Name Role Phone Arpita White MD Primary Care Provider [facility], Pcp Primary Care Provider Martina Cade MD Primary Care Provider Unavail Darin Ferrer MD Primary Care Provider [phone] Sushma Jin NP Primary Care Provider Aranza vailable Carolyn Skaggs MD Primary Care Prov ider Sushma Jin COLLEGE OR UNIVERSITY FACULTY MEMBER Primary Care Provider Aranza vailable Reason for Visit * Reason Comments E-prescribe Rx Request Encounter Details Date Type Department Care Team Description 02/10/2017 Refill Pediatrics - [address] [phone] Arpita White MD E-prescribe Rx Request Social [...] of the day? NO Arpita White Payor: [place] MEDICAID / Plan: [place] MEDICAID HMO $0 [place] / Product Type: HMO [id number] documented in this encounter Plan of Treatment Not on file documented as of this encounter Visit Diagnoses Not on filedocumented in this encounter Care Teams Manager Of Maintenance Relationship Specialty Start Date End Date Arpita White MD PCP - General 99 07/22/18 [facility] PCP - General Internal Medicine 07/23/18 12/20/18 Martina Gonzalez MD PCP - General Internal Medicine 12/21/18 10/14/21 Darin Restrepo MD [address] [place] [address] PCP - General Internal Medicine 10/15/21 06/16/22 Sushma Jin NP [address] [place] [address] PCP - General Internal Medicine 06/17/22 09/04/22 Carolyn Skaggs MD [address] [place], [place] [phone] PCP - General Internal Medicine 09/05/22 11/11/23 Sushma Jin NP [address] [place], [place] [address] PCP - General Internal Medicine 11/12/23 documented as of this encounter
--- OUTSIDE RECORDS SUMMARY | 2025-08-11 15:55 | XMS_ITS | Encounter Summary ---
Author Organization [facility] Address [address] [place] [address] Care Team Providers Care Group Reservations Coordinator Name Role Phone Arpita White MD Primary Care Provider Shanique Mccarthy MD Primary Care Provider Brandee cano [facility], Pcp Primary Care Provider Martina Cade MD Primary Care Provider Unavail Darin Ferrer MD Primary Care Provider [phone] Sushma Jin PUBLIC SERVICE REPRESENTATIVE Primary Care Provider Aranza vailable Carolyn Skaggs MD Primary Care Prov ider Sushma Jin PUBLIC SERVICE REPRESENTATIVE Primary Care Provider Aranza vailable Encounter Details Date Type Department Care Team Description 1999 [facility] - [address] [phone] Live Orellana MD DRUG WITHDRAWAL SYNDROME IN [...] in documented in this encounter Care Teams Group Reservations Coordinator Relationship Specialty Start Date End Date Arpita White MD PCP - General 99 07/22/18 Shanique Ayala MD PCP - General 1999 99 [facility], Pcp PCP - General Internal Medicine 07/23/18 12/20/18 Martina Gonzalez MD PCP - General Internal Medicine 12/21/18 10/14/21 Darin Restrepo MD [address] [place] [address] PCP - General Internal Medicine 10/15/21 06/16/22 Sushma Jin NP [address] [place] [address] PCP - General Internal Medicine 06/17/22 09/04/22 Carolyn Skaggs MD [address] [place] [address] PCP - General Internal Medicine 09/05/22 11/11/23 Sushma Jin NP [address] [place] [address] PCP - General Internal Medicine 11/12/23 documented as of this encounter
--- OUTSIDE RECORDS SUMMARY | 2025-08-11 15:55 | XMS_ITS | Encounter Summary ---
Author Organization [facility] Address [address] [place] [address] Care Team Providers Care Adaptive Physical Education Teacher Name Role Phone Sherrell Gonzalez MD Primary Care Provider Darin Glass MD Primary Care Provider [phone] Sushma Jin LINING MARKER Primary Care Provider Aranza vailable Carolyn Skaggs MD Primary Care Prov ider Sushma Jin LINING MARKER Primary Care Provider Aranza vailable Reason for Visit * Reason Onset Date Comments Cough 02/21/2020 Encounter Details Date Type Department Care Team Description 02/21/2020 Telephone Adult Medicine [address] [address] Sherrell Gonzalez MD Cough Social History Tobacco [...] having: cough/shortness of breath/ 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 NO ??? Have you been to [place] or in contact with anyone who has recently been in [place]? NO If YES to either, send the call to triage and do not book If pain or injury related was it due to an accident at work or from a motor vehicle accident? NO If yes, gather 3rd libertarian insurance information Date of accident/Injury: How long has patient had these symptoms?: 1 week PCP: SHERRELL GONZALEZ Pay[place] / Plan: MEDICARE-[employer] / Product Type: MEDICARE [id number] documented in this encounter Plan of Treatment Not on file documented as of this encounter Visit Diagnoses Not on filedocumented in this encounter Care Teams Adaptive Physical Education Teacher Relationship Specialty Start Date End Date Sherrell Gonzalez MD PCP - General Internal Medicine 12/21/18 10/14/21 Darin Restrepo MD [address] [place] [address] PCP - General Internal Medicine 10/15/21 06/16/22 Sushma Jin NP [address] [place], [place] [phone] PCP - General Internal Medicine 06/17/22 09/04/22 Carolyn Skaggs MD [address] [place] [address] PCP - General Internal Medicine 09/05/22 11/11/23 Sushma Jin NP [address] [place] [address] PCP - General Internal Medicine 11/12/23 documented as of this encounter
--- OUTSIDE RECORDS SUMMARY | 2025-08-11 15:55 | XMS_ITS | Encounter Summary ---
Author Organization [facility] [facility] Address [address] [place] [address] Care Team Providers Care Transitional Nurse Name Role Phone Arpita White MD Primary Care Provider [facility] anastasiia Barone, Pcp Primary Care Provider [facility] Martina Diaz MD Primary Care Provider Unavail Darin Ferrer MD Primary Care Provider [phone] Sushma Jin NP Primary Care Provider Aranza vailable Carolyn Skaggs MD Primary Care Prov ider Sushma Jin CARE PROGRAM DIRECTOR Primary Care Provider Aranza vailable Encounter Details Date Type Department Care Team Description 01/15/2013 Technical Sales Support Specialist Report Medical Records [address] [place] [id number] [place] [address] Social History Tobacco Use Types Packs/Day Years [...] on filedocumented in this encounter Care Teams Transitional Nurse Relationship Specialty Start Date End Date Arpita White MD PCP - General 99 07/22/18 [facility], Pcp PCP - General Internal Medicine 07/23/18 12/20/18 Martina Gonzalez MD PCP - General Internal Medicine 12/21/18 10/14/21 Darin Restrepo MD [address] [place] [address] PCP - General Internal Medicine 10/15/21 06/16/22 Sushma Jin NP [address] [place] [address] PCP - General Internal Medicine 06/17/22 09/04/22 Carolyn Skaggs MD [address] [place] [address] PCP - General Internal Medicine 09/05/22 11/11/23 Sushma Jin NP [address] [place] [address] PCP - General Internal Medicine 11/12/23 documented as of this encounter
--- OUTSIDE RECORDS SUMMARY | 2025-08-11 15:55 | XMS_ITS | Encounter Summary ---
Author Organization [facility] Address [address] [place] [address] Care Team Providers Care Foam Fabricator Name Role Phone Carolyn Skaggs MD Primary Care Prov ider Sushma Jin NP Primary Care Provider Aranza vailable Reason for Visit * Reason Comments E-prescribe Rx Request Encounter Details Date Type Department Care Team Description 12/06/2022 Refill Bariatric Surgery - [place] [address] [facility] [address] [place] [address] Antonieta Bojorquez MD [address] [place] [address] [address] [place] [address] E-prescribe Rx Request Social History Tobacco Use [...] deficiency documented in this encounter Care Teams Foam Fabricator Relationship Specialty Start Date End Date Carolyn Skaggs MD [address] [place] [address] PCP - General Internal Medicine 09/05/22 11/11/23 Sushma Jin NP [address] [place] [address] PCP - General Internal Medicine 11/12/23 documented as of this encounter
--- OUTSIDE RECORDS SUMMARY | 2025-08-11 15:55 | XMS_ITS | Encounter Summary ---
Author Organization [facility] Address [address] [place] [address] Care Team Providers Care Cementer Hand Name Role Phone Arpita White MD Primary Care [facility], Pcp Primary Care Provider [facility] Martina Diaz MD Primary Care Provider Unavail Darin Ferrer MD Primary Care Provider [phone] Sushma Jin SECRETARY BOOK KEEPER Primary Care Provider Aranza vailable Carolyn Skaggs MD Primary Care Prov ider Sushma Jin SECRETARY BOOK KEEPER Primary Care Provider Aranza vailable Encounter Details Date Type Department Care Team Description 01/08/2017 Debt Counselor Report Medical Records [address] [place] [address] Abstract, Provider Social History Tobacco Use Types [...] on filedocumented in this encounter Care Teams Cementer Hand Relationship Specialty Start Date End Date Arpita White MD PCP - General 99 07/22/18 [facility], Pcp PCP - General Internal Medicine 07/23/18 12/20/18 Martina Gonzalez MD PCP - General Internal Medicine 12/21/18 10/14/21 Darin Restrepo MD [address] [place] [address] PCP - General Internal Medicine 10/15/21 06/16/22 Sushma Jin NP [address] [place] [address] PCP - General Internal Medicine 06/17/22 09/04/22 Carolyn Skaggs MD [address] [place] [address] PCP - General Internal Medicine 09/05/22 11/11/23 Sushma Jin NP [address] [place] [address] PCP - General Internal Medicine 11/12/23 documented as of this encounter
--- OUTSIDE RECORDS SUMMARY | 2025-08-11 15:55 | XMS_ITS | Encounter Summary ---
Author Organization [facility] Address [address] [place] [address] Care Team Providers Care Automotive Service Professional Name Role Phone Arpita White MD Primary [facility], [facility] Primary Care Provider Unavail Darin Ferrer MD Primary Care Provider [phone] Sushma Jin EDGE TRIMMER Primary Care Provider Aranza vailable Carolyn Skaggs MD Primary Care Prov ider Sushma Jin EDGE TRIMMER Primary Care Provider Aranza vailable Encounter Details Date Type Department Care Team Description 01/19/2014 Release of Information Medical Records [address] [place] [address] Abstract, Provider Social History Tobacco Use Types [...] on filedocumented in this encounter Care Teams Automotive Service Professional Relationship Specialty Start Date End Date Arpita White MD PCP - General 99 07/22/18 [facility], Pcp PCP - General Internal Medicine 07/23/18 12/20/18 Martina Gonzalez MD PCP - General Internal Medicine 12/21/18 10/14/21 Darin Restrepo MD [address] [place] [address] PCP - General Internal Medicine 10/15/21 06/16/22 Sushma Jin NP [address] [place] [address] PCP - General Internal Medicine 06/17/22 09/04/22 Carolyn Skaggs MD [address] [place] [address] PCP - General Internal Medicine 09/05/22 11/11/23 Sushma Jin NP [address] [place], [place] [address] PCP - General Internal Medicine 11/12/23 documented as of this encounter
--- OUTSIDE RECORDS SUMMARY | 2025-08-11 15:55 | XMS_ITS | Encounter Summary ---
Author Organization [facility] Address [address] [place] [address] Care Team Providers Care Insurance Salesperson Name Role Phone Arpita White MD Primary Care Provider [facility], Pcp Primary Care Provider Martina Cade MD Primary Care Provider Unavail Darin Ferrer MD Primary Care Provider [phone] Sushma Jin SILVERWARE SUPERVISOR Primary Care Provider Aranza vailable Carolyn Skaggs MD Primary Care Prov ider Sushma Jin SILVERWARE SUPERVISOR Primary Care Provider Aranza vailable Reason for Visit * Reason Comments E-prescribe Rx Request Encounter Details Date Type Department Care Team Description 11/25/2015 Refill Pediatrics - [address] [phone] Arpita White MD E-prescribe Rx Request Social [...] of the day? NO Arpita White Payor: [facility] MEDICAID / Plan: [place] MED[place] HMO $0 [place] / Product Type: HMO [id number] documented in this encounter Plan of Treatment Not on file documented as of this encounter Visit Diagnoses Not on filedocumented in this encounter Care Teams Insurance Salesperson Relationship Specialty Start Date End Date Arpita White MD PCP - General 99 07/22/18 [facility] PCP - General Internal Medicine 07/23/18 12/20/18 Martina Gonzalez MD PCP - General Internal Medicine 12/21/18 10/14/21 Darin Restrepo MD [address] [place] [address] PCP - General Internal Medicine 10/15/21 06/16/22 Sushma Jin NP [address] [place] [address] PCP - General Internal Medicine 06/17/22 09/04/22 Carolyn Skaggs MD [address] [place] [address] PCP - General Internal Medicine 09/05/22 11/11/23 Sushma Jin NP [address] [place] [address] PCP - General Internal Medicine 11/12/23 documented as of this encounter
--- OUTSIDE RECORDS SUMMARY | 2025-08-11 15:55 | XMS_ITS | Encounter Summary ---
Author Organization [facility] Address [address] [place] [address] Care Team Providers Care Market Editor Name Role Phone Darin Restrepo MD Primary Care Provider [phone] Sushma Jin BOARDER STEAM Primary Care Provider Aranza vailable Carolyn Skaggs MD Primary Care Prov ider Sushma Jin BOARDER STEAM Primary Care Provider Aranza vailable Encounter Details Date Type Department Care Team Description 03/19/2022 Pt. Non Urgent Medic al Question Adult Medicine [address] [address] Adelina Jay [place] Social History Tobacco Use [...] I also am still looking for a steel plate printer for the referral once I find one who accepts my insurance I will let you know Thanks, Dorian gaytan documented in this encounter Plan of Treatment Not on file documented as of this encounter Visit Diagnoses Not on filedocumented in this encounter Care Teams Market Editor Relationship Specialty Start Date End Date Darin Restrepo MD [address] [place] [address] PCP - General Internal Medicine 10/15/21 06/16/22 Sushma Jin NP [address] [place] [address] PCP - General Internal Medicine 06/17/22 09/04/22 Carolyn Skaggs MD [address] [place] [address] PCP - General Internal Medicine 09/05/22 11/11/23 Sushma Jin NP [address] [place] [address] PCP - General Internal Medicine 11/12/23 documented as of this encounter
--- OUTSIDE RECORDS SUMMARY | 2025-08-11 15:55 | XMS_ITS | Encounter Summary ---
Author Organization [facility] Address [address] [place] [address] Care Team Providers Care Obgyn Hospitalist Physician Name Role Phone Arpita White MD Primary Care Provider [facility] Primary Care Provider [facility] Martina Diaz MD Primary Care Provider Unavail able Darin Restrepo MD Primary Care Provider Sushma Jin NP Primary Care Provider Aranza vailable Carolyn Skaggs MD Primary Care Prov ider Sushma Jin PROGRAM DIRECTOR/MORNING SHOW HOST Primary Care Provider Aranza vailable Encounter Details Date Type Department Care Team Description 04/25/2016 Casino Cashier Report Medical Records [address] [place] [address] Blanca Foster MD Social History Tobacco Use [...] on filedocumented in this encounter Care Teams Obgyn Hospitalist Physician Relationship Specialty Start Date End Date Arpita White MD PCP - General 99 07/22/18 [facility], Pcp PCP - General Internal Medicine 07/23/18 12/20/18 Martina Gonzalez MD PCP - General Internal Medicine 12/21/18 10/14/21 Darin Rsetrepo MD [address] [place] [address] PCP - General Internal Medicine 10/15/21 06/16/22 Sushma Jin NP [address] [place] [address] PCP - General Internal Medicine 06/17/22 09/04/22 Carolyn Skaggs MD [address] [place] [address] PCP - General Internal Medicine 09/05/22 11/11/23 Sushma Jin NP [address] [place] [address] PCP - General Internal Medicine 11/12/23 documented as of this encounter
--- OUTSIDE RECORDS SUMMARY | 2025-08-11 15:55 | XMS_ITS | Encounter Summary ---
Author Organization [facility] Address [address] [place] [address] Care Team Providers Care Supervisor Electron Tube Processing Name Role Phone Arpita White MD Primary Care Provider [facility], Pcp Primary Care Provider Martina Cade MD Primary Care Provider Unavail Darin Ferrer MD Primary Care Provider [phone] Sushma Jin CENTER SALES AND SERVICE ASSOCIATE Primary Care Provider Aranza vailable Carolyn Skaggs MD Primary Care Prov ider Sushma Jin CENTER SALES AND SERVICE ASSOCIATE Primary Care Provider Aranza vailable Reason for Visit * Reason Onset Date Comments Blood Pressure Elevated 01/17/2014 Headache 01/17/2014 pain, chest 01/17/2014 Encounter Details Date Type Department Care Team Description 01/17/2014 Telephone Pediatrics - [address] [address] Arpita White MD Blood Pressure Elevated; Headache; [...] Appetite ok. Advised Mom to bring to [facility] ER (lives near there) Mom just [...] water 119 g 5 ??? Saline Nasal [place] 0.65 % SOLN use twice daily as needed 1 Bottle 5 documented in this encounter Plan of Treatment Not on file documented as of this encounter Visit Diagnoses Not on filedocumented in this encounter Care Teams Supervisor Electron Tube Processing Relationship Specialty Start Date End Date Arpita White MD PCP - General 99 07/22/18 [facility], Pcp PCP - General Internal Medicine 07/23/18 12/20/18 Martina Gonzalez MD PCP - General Internal Medicine 12/21/18 10/14/21 Darin Restrepo MD [address] [place] [address] PCP - General Internal Medicine 10/15/21 06/16/22 Sushma Jin NP [address] [place], [place] [id number] PCP - General Internal Medicine 06/17/22 09/04/22 Carolyn Skaggs MD [address] [place] [address] PCP - General Internal Medicine 09/05/22 11/11/23 Sushma Jin NP [address] [place] [address] PCP - General Internal Medicine 11/12/23 documented as of this encounter
--- OUTSIDE RECORDS SUMMARY | 2025-08-11 15:55 | XMS_ITS | Encounter Summary ---
Author Organization [facility] Address [address] [place] [address] Care Team Providers Care Director Revenue Name Role Phone Martina Gonzalez MD Primary Care Provider Unavail able Darin Restrepo MD Primary Care Provider [phone] Sushma Jin UNDERCOAT SPRAYER Primary Care Provider Aranza vailable Carolyn Skaggs MD Primary Care Prov ider Sushma Jin UNDERCOAT SPRAYER Primary Care Provider Aranza vailable Encounter Details Date Type Department Care Team Description 11/15/2019 Orders Only Adult Medicine [address] [address] Martina Gonzalez MD Elevated urine levels of [...] urine documented in this encounter Care Teams Director Revenue Relationship Specialty Start Date End Date Martina Gonzalez MD PCP - General Internal Medicine 12/21/18 10/14/21 Darin Restrepo MD [address] [place] [address] PCP - General Internal Medicine 10/15/21 06/16/22 Sushma Jin NP [address] [place] [address] PCP - General Internal Medicine 06/17/22 09/04/22 Carolyn Skaggs MD [address] [place] [address] PCP - General Internal Medicine 09/05/22 11/11/23 Sushma Jin NP [address] [place] [address] PCP - General Internal Medicine 11/12/23 documented as of this encounter
--- OUTSIDE RECORDS SUMMARY | 2025-08-11 15:55 | XMS_ITS | Encounter Summary ---
Author Organization [facility] Address [address] [place] [address] Care Team Providers Care Dining Room Manager Name Role Phone Martina Gonzalez MD Primary Care Provider Unavail able Darin Restrepo MD Primary Care Provider [phone] Sushma Jin GLOST PLACER Primary Care Provider Aranza vailable Carolyn Skaggs MD Primary Care Prov ider Sushma Jin GLOST PLACER Primary Care Provider Aranza vailable Encounter Details Date Type Department Care Team Description 07/25/2021 Refill Nephrology - [address] [address] Christopher Pollard MD [address] [place] [address] Social History Tobacco Use Types Packs/Day Years [...] on filedocumented in this encounter Care Teams Dining Room Manager Relationship Specialty Start Date End Date Martina Gonzalez MD PCP - General Internal Medicine 12/21/18 10/14/21 Darin Restrepo MD [address] [place] [address] PCP - General Internal Medicine 10/15/21 06/16/22 Sushma Jin NP [address] [place], [place] [id number] PCP - General Internal Medicine 06/17/22 09/04/22 Carolyn Skaggs MD [address] [place] [address] PCP - General Internal Medicine 09/05/22 11/11/23 Sushma Jin NP [address] [place] [address] PCP - General Internal Medicine 11/12/23 documented as of this encounter
--- OUTSIDE RECORDS SUMMARY | 2025-08-11 15:55 | XMS_ITS | Encounter Summary ---
Author Organization [facility] Address [address] [facility] [address] [facility] [address] [place] [address] Phone Care Team Providers Care Hot Stamp Operator Name Role Phone Arpita White MD Primary Care Provider Martina Hunter MD Primary Care Provider [phone] Darin Restrepo MD Primary Care Provider + Encounter Details Date Type Department Care Team (Latest Contact Info) Description 10/24/2017 Transcribe Orders [facility] [address] [place] [address] Cameron Jones MD [address] [address] Hirsutism (Primary Dx); Oligomenorrhea, unspecified [...] (10/24/2017 8:29 AM EST) HDL 51 mg/dL [facility] Comment: Interpretation: Risk Level Females Decreased >55mg/dL Average 50-55 mg/dL Increased <50 mg/dL CHOLESTEROL 141 0 - 240 mg/dL [facility] Comment: Pediatric Reference Ranges for 2 to 18 years Acceptable: Less than 170 mg/dL Borderline: 170 - 199 mg/dL High: Greater than or equal to 200 mg/dL TRIGLYCERIDES 73 30 - 160 mg/dL [facility] LDL 75 50 - 129 mg/dL [facility] Comment: LDL levels in terms of risk for coronary heart disease: <100 mg/dL: Optimal 100-129 mg/dL: Near or above optimal 130-159 mg/dL: Borderline high 160-189 mg/dL: High >190 mg/dL: Very High CARDIAC RISK RATIO 2.8(L) 3.3 - 4.4 [facility] Blood 10/24/2017 8:29 AM EST 10/24/2017 8:33 AM EST Cameron Jones MD LAB BLOOD ORDERABLES Fi nal Result Performing Organization Address City/State/[place] Co de Phone Number [facility] [address] [place] [address] documented in this encounter Visit Diagnoses Diagnosis Hirsutism- Primary Oligomenorrhea, unspecified type documented in this encounter Additional Health Concerns Infection Onset Date Last Indicated Resolved Time CoV-Risk 02/16/2023 02/16/2023 02/27/2023 1:22 AM EDT CoV-Risk 01/21/2024 01/21/2024 02/01/2024 1:22 AM EST documented as of this encounter Care Teams Hot Stamp Operator Relationship Specialty Start Date End Date Arpita White MD [address] [place] [address] PCP - General Pediatrics 10/24/17 11/22/19 Martina Torres MD [address] [place] [address] PCP - General Internal Medicine 11/23/19 11/29/21 Darin Restrepo MD [address] [place] [address] PCP - General Internal Medicine 11/30/21 documented as of this encounter Additional Source Comments The information contained in this document represents components of the legal health record. It is not the complete legal health record.[facility]
--- OUTSIDE RECORDS SUMMARY | 2025-08-11 15:55 | XMS_ITS | Encounter Summary ---
Author Organization [facility] Address [address] [place] [address] Care Team Providers Care Health Sciences Manager Name Role Phone Community, Pcp Primary Care Provider Martina Cade MD Primary Care Provider Unavail able Darin Restrepo MD Primary Care Provider [phone] Sushma Jin EDUCATIONAL AUDIOLOGIST Primary Care Provider Aranza vailable Carolyn Skaggs MD Primary Care Prov ider Sushma Jin EDUCATIONAL AUDIOLOGIST Primary Care Provider Aranza vailable Encounter Details Date Type Department Care Team Description 07/31/2018 Licensed Club Manager Report Medical Records [address] [place] [address] Cameron Jones Social History Tobacco Use Types [...] on filedocumented in this encounter Care Teams Health Sciences Manager Relationship Specialty Start Date End Date Community, Pcp PCP - General Internal Medicine 07/23/18 12/20/18 Martina Gonzalez MD PCP - General Internal Medicine 12/21/18 10/14/21 Darin Restrepo MD [address] [place] [address] PCP - General Internal Medicine 10/15/21 06/16/22 Sushma Jin NP [address] [place] [address] PCP - General Internal Medicine 06/17/22 09/04/22 Carolyn Skaggs MD [address] [place] [address] PCP - General Internal Medicine 09/05/22 11/11/23 Sushma Jin NP [address] [place] [address] PCP - General Internal Medicine 11/12/23 documented as of this encounter
--- OUTSIDE RECORDS SUMMARY | 2025-08-11 15:55 | XMS_ITS | Encounter Summary ---
Author Organization [facility] Address [address] [place] [address] Care Team Providers Care Agriculturist Name Role Phone Arpita White MD Primary [facility] Primary Care Provider Martina Cade MD Primary Care Provider Unavail Darin Ferrer MD Primary Care Provider [phone] Sushma Jin GARBAGE PICK UP WORKER Primary Care Provider Aranza vailable Carolyn Skaggs MD Primary Care Prov ider Sushma Jin GARBAGE PICK UP WORKER Primary Care Provider Aranza vailable Reason for Referral * Non BING (Emergency) - Authorized/Booked Specialty Diagnoses / Procedures Referred By Contact Referred To Contact Internal Medicine / ADOLESCENT MEDICINE [facility] Procedures REFERRAL TO ADULT MEDICINE Arpita White MD [address] [place] [address] Ext Adolescent Med Referral ID Status Reason Start Date Expiration Date Visits Requested Visits Authorized SEE NOTE Authorized/ Booked Emergency Services 06/06/2015 09/06/2015 1 1 Reason for Visit * Reason Onset Date Comments Manager Psychology Feedback 05/26/2015 [facility] Encounter Details Date Type Department Care Team Description 05/26/2015 Telephone Pediatrics - [address] [address] Arpita White MD Manager Psychology Feedback ([facility]) Social History Tobacco Use Types Packs/Day Years [...] encounter Miscellaneous Notes * Telephone Encounter - [facility] [place] - 05/26/2015 10:44 AM EDT Fax received. Patient was seen at [facility] on 05/04/15. Please review this patients new referral request. The referral has been pended. Please complete thefollowing: If approved> sign order If denied>please give instructions and route to your practice nursing pool. Practice nurse should inform referrals and the patient if denied. documented in this encounter Plan of Treatment Not on file documented as of this encounter Visit Diagnoses Not on filedocumented in this encounter Care Teams Agriculturist Relationship Specialty Start Date End Date Arpita White MD PCP - General 99 07/22/18 [facility], Pcp PCP - General Internal Medicine 07/23/18 12/20/18 Martina Gonzalez MD PCP - General Internal Medicine 12/21/18 10/14/21 Darin Restrepo MD [address] [place] [address] PCP - General Internal Medicine 10/15/21 06/16/22 Sushma Jin NP [address] [place], [place] [address] PCP - General Internal Medicine 06/17/22 09/04/22 Carolyn Skaggs MD [address] [place] [address] PCP - General Internal Medicine 09/05/22 11/11/23 Sushma Jin NP [address] [place], [place] [address] PCP - General Internal Medicine 11/12/23 documented as of this encounter
--- OUTSIDE RECORDS SUMMARY | 2025-08-11 15:55 | XMS_ITS | Encounter Summary ---
Author Organization [facility] Address [address] [place] [address] Care Team Providers Care Internet Marketing Manager Name Role Phone Arpita White MD Primary Care Provider [facility] anastasiia Barone, Pcp [facility] Primary Care Provider Unavail Darin Ferrer MD Primary Care Provider Sushma Jin SWEATBAND SHAPER Primary Care Provider Aranza vailable Carolyn Skaggs MD Primary Care Prov ider Sushma Jin SWEATBAND SHAPER Primary Care Provider Aranza vailable Encounter Details Date Type Department Care Team Description 08/01/2017 Global Account Executive Report Medical Records [address] [place] [id number] Cameron Jones Social History Tobacco Use Types [...] on filedocumented in this encounter Care Teams Internet Marketing Manager Relationship Specialty Start Date End Date Arpita White MD PCP - General 99 07/22/18 [facility], Pcp PCP - General Internal Medicine 07/23/18 12/20/18 Martina Gonzalez MD PCP - General Internal Medicine 12/21/18 10/14/21 Darin Restrepo MD [address] [place] [address] PCP - General Internal Medicine 10/15/21 06/16/22 Sushma Jin NP [address] [place] [address] PCP - General Internal Medicine 06/17/22 09/04/22 Carolyn Skaggs MD [address] [place] [address] PCP - General Internal Medicine 09/05/22 11/11/23 Sushma Jin NP [address] [place], [place] [address] PCP - General Internal Medicine 11/12/23 documented as of this encounter
--- OUTSIDE RECORDS SUMMARY | 2025-08-11 15:55 | XMS_ITS | Encounter Summary ---
Author Organization [facility] Address [address] [place] [address] Care Team Providers Care Spring Winder Name Role Phone Carolyn Skaggs MD Primary Care Prov ider Sushma Jin PRESSURE WASHER Primary Care Provider Aranza vailable Encounter Details Date Type Department Care Team Description 04/11/2023 Release of Information Medical Records [address] [place] [address] Abstract, Provider Social History Tobacco Use Types [...] on filedocumented in this encounter Care Teams Spring Winder Relationship Specialty Start Date End Date Carolyn Skaggs MD [address] [place] [address] PCP - General Internal Medicine 09/05/22 11/11/23 Sushma Jin, RONNY [address] [place] [address] PCP - General Internal Medicine 11/12/23 documented as of this encounter
--- OUTSIDE RECORDS SUMMARY | 2025-08-11 15:55 | XMS_ITS | Encounter Summary ---
Author Organization [facility] Address [address] [place] [address] Care Team Providers Care Grain Broker Name Role Phone Martina Gonzalez MD Primary Care Provider Unavail Darin Ferrer MD Primary Care Provider [phone] Sushma Jin NURSES' REGISTRY DIRECTOR Primary Care Provider Aranza vailable Carolyn Skaggs MD Primary Care Prov ider Sushma Jin NURSES' REGISTRY DIRECTOR Primary Care Provider Aranza vailable Encounter Details Date Type Department Care Team Description 12/27/2020 Orders Only Medical Records [address] [place] [address] Shar Banegas MD [address] [place] [address] Social History Tobacco Use Types [...] on filedocumented in this encounter Care Teams Grain Broker Relationship Specialty Start Date End Date Martina Gonzalez MD PCP - General Internal Medicine 12/21/18 10/14/21 Darin Restrepo MD [address] [place] [address] PCP - General Internal Medicine 10/15/21 06/16/22 Sushma Jin NP [address] [place] [address] PCP - General Internal Medicine 06/17/22 09/04/22 Carolyn Skaggs MD [address] [place] [address] PCP - General Internal Medicine 09/05/22 11/11/23 Sushma Jin NP [address] [place] [address] PCP - General Internal Medicine 11/12/23 documented as of this encounter
--- OUTSIDE RECORDS SUMMARY | 2025-08-11 15:55 | XMS_ITS | Encounter Summary ---
Author Organization [facility] Address [address] [place] [address] Care Team Providers Care School Commissioner Name Role Phone Martina Gonzalez MD Primary Care Provider Unavail able Darin Restrepo MD Primary Care Provider [phone] Sushma Jin COMMANDER INTERNAL AFFAIRS Primary Care Provider Aranza vailable Carolyn Skaggs MD Primary Care Prov ider Sushma Jin COMMANDER INTERNAL AFFAIRS Primary Care Provider Aranza vailable Encounter Details Date Type Department Care Team Description 02/01/2021 Old Medical Records Medical Records [address] [place] [id number] Abstract, Provider Social History Tobacco Use Types [...] on filedocumented in this encounter Care Teams School Commissioner Relationship Specialty Start Date End Date Martina Gonzalez MD PCP - General Internal Medicine 12/21/18 10/14/21 Darin Restrepo MD [address] [place] [address] PCP - General Internal Medicine 10/15/21 06/16/22 Sushma Jin NP [address] [place] [address] PCP - General Internal Medicine 06/17/22 09/04/22 Carolyn Skaggs MD [address] [place] [address] PCP - General Internal Medicine 09/05/22 11/11/23 Sushma Jin NP [address] [place] [address] PCP - General Internal Medicine 11/12/23 documented as of this encounter
--- OUTSIDE RECORDS SUMMARY | 2025-08-11 15:55 | XMS_ITS | Encounter Summary ---
Author Organization [facility] Address [address] [place] [address] Phone Care Team Providers Care Marketing Proposal Specialist Name Role Phone Darin Restrepo MD Primary Care Provider + Encounter Details Date Type Department Care Team (Late st Contact Info) Description 01/22/2024 Procedure Pass [facility], Ct Scan - [facility] [address] [place] [address] Social History Tobacco Use Types Packs/Day Years [...] documented as of this encounter Care Teams Marketing Proposal Specialist Relationship Specialty Start Date End Date Darin Restrepo MD [address] [place] [address] PCP - General Internal Medicine 11/30/21 documented as of this encounter Additional Source Comments The information contained in this document represents components of the legal health record. It is not the complete legal health record.[facility]
--- OUTSIDE RECORDS SUMMARY | 2025-08-11 15:55 | XMS_ITS | Encounter Summary ---
Author Organization [facility] Address [address] [facility] [address] [facility] [address] [place] [address] Phone Care Team Providers Care Cribber Name Role Phone Darin Restrepo MD Primary Care Provider + Encounter Details Date Type Department Care Team (Late st Contact Info) Description 01/22/2024 Procedure Pass [facility], Ct Scan - [facility] [address] [place] [address] Social History Tobacco Use Types Packs/Day Years [...] documented as of this encounter Care Teams Cribber Relationship Specialty Start Date End Date Darin Restrepo MD [address] [place] [address] PCP - General Internal Medicine 11/30/21 documented as of this encounter Additional Source Comments The information contained in this document represents components of the legal health record. It is not the complete legal health record.[facility]
--- OUTSIDE RECORDS SUMMARY | 2025-08-11 15:55 | XMS_ITS | Encounter Summary ---
Author Organization [facility] Address [address] [place] [address] Care Team Providers Care Supervisor Testing Name Role Phone Arpita White MD Primary Care [facility]one, Pcp Primary [facility] Primary Care Provider Unavail Darin Ferrer MD Primary Care Provider [phone] Sushma Jin INSIDE TRUCKER Primary Care Provider Aranza vailable Carolyn Skaggs MD Primary Care Prov ider Sushma Jin INSIDE TRUCKER Primary Care Provider Aranza vailable Encounter Details Date Type Department Care Team Description 12/31/2016 Transfer Records Medical Records [address] [place] [address] Abstract, Provider Social History Tobacco Use Types [...] filedocumented in this encounter Care Teams Supervisor Testing Relationship Specialty Start Date End Date Arpita White MD PCP - General 99 07/22/18 Community, Pcp PCP - General Internal Medicine 07/23/18 12/20/18 Martina Gonzalez MD PCP - General Internal Medicine 12/21/18 10/14/21 Darin Restrepo MD [address] [place] [address] PCP - General Internal Medicine 10/15/21 06/16/22 Sushma Jin NP [address] [place] [address] PCP - General Internal Medicine 06/17/22 09/04/22 Carolyn Skaggs MD [address] [place] [address] PCP - General Internal Medicine 09/05/22 11/11/23 Sushma Jin NP [address] [place] [address] PCP - General Internal Medicine 11/12/23 documented as of this encounter
--- OUTSIDE RECORDS SUMMARY | 2025-08-11 15:55 | XMS_ITS | Encounter Summary ---
Author Organization [facility] Address [address] [place] [address] Care Team Providers Care Media Sales Executive Name Role Phone Arpita White MD Primary Care Provider Ann Barone, Pcp [facility] Primary Care Provider Unavail Darin Ferrer MD Primary Care Provider [phone] Sushma Jin RISK COMPLIANCE MANAGER Primary Care Provider Aranza vailable Carolyn Skaggs MD Primary Care Prov ider Sushma Jin RISK COMPLIANCE MANAGER Primary Care Provider Aranza vailable Encounter Details Date Type Department Care Team Description 05/04/2015 Walk In Clinic Visit Medical Records [address] [place] [address] Abstract, Provider Social History Tobacco Use Types [...] on filedocumented in this encounter Care Teams Media Sales Executive Relationship Specialty Start Date End Date Arpita White MD PCP - General 99 07/22/18 Community, Pcp PCP - General Internal Medicine 07/23/18 12/20/18 Martina Gonzalez MD PCP - General Internal Medicine 12/21/18 10/14/21 Darin Restrepo MD [address] [place] [address] PCP - General Internal Medicine 10/15/21 06/16/22 Sushma Jin NP [address] [place] [address] PCP - General Internal Medicine 06/17/22 09/04/22 Carolyn Skaggs MD [address] [place] [address] PCP - General Internal Medicine 09/05/22 11/11/23 Sushma Jin NP [address] [place] [address] PCP - General Internal Medicine 11/12/23 documented as of this encounter
--- OUTSIDE RECORDS SUMMARY | 2025-08-11 15:55 | XMS_ITS | Encounter Summary ---
Author Organization [facility] Address [address] [place] [address] Phone Care Team Providers Care Senior Accountant Name Role Phone Darin Restrepo MD Primary Care Provider + Encounter Details Date Type Department Care Team (Late st Contact Info) Description 10/10/2022 Procedure Pass [facility], Ct Scan - [address] [address] Social History Tobacco Use Types Packs/Day Years [...] documented as of this encounter Care Teams Senior Accountant Relationship Specialty Start Date End Date Darin Restrepo MD [address] [place] [address] PCP - General Internal Medicine 11/30/21 documented as of this encounter Additional Source Comments The information contained in this document represents components of the legal health record. It is not the complete legal health record.[facility]
--- OUTSIDE RECORDS SUMMARY | 2025-08-11 15:55 | XMS_ITS | Encounter Summary ---
Author Organization [facility] Address [address] [place] [address] Care Team Providers Care Vegetable Packer Name Role Phone Arpita White MD Primary Care Provider Shanique Mccarthy MD Primary Care Provider Brandee [facility] Pcp Primary Care Provider Martina Cade MD Primary Care Provider Unavail Darin Ferrer MD Primary Care Provider [phone] Sushma Jin TOP SPOTTER Primary Care Provider Aranza vailable Carolyn Skaggs MD Primary Care Prov ider Sushma Jin TOP SPOTTER Primary Care Provider Aranza vailable Encounter Details Date Type Department Care Team Description 1999 [facility] - [address] [phone] Live Orellana MD DRUG WITHDRAWAL SYNDROME IN [...] jaundice documented in this encounter Care Teams Vegetable Packer Relationship Specialty Start Date End Date Arpita White MD PCP - General 99 07/22/18 Shanique Ayala MD PCP - General 1999 99 [facility], Pcp PCP - General Internal Medicine 07/23/18 12/20/18 Martina Gonzalez MD PCP - General Internal Medicine 12/21/18 10/14/21 Darin Restrepo MD [address] [place] [address] PCP - General Internal Medicine 10/15/21 06/16/22 Sushma Jin NP [address] [place] [address] PCP - General Internal Medicine 06/17/22 09/04/22 Carolyn Skaggs MD [address] [place] [address] PCP - General Internal Medicine 09/05/22 11/11/23 Sushma Jin NP [address] [place] [address] PCP - General Internal Medicine 11/12/23 documented as of this encounter
--- OUTSIDE RECORDS SUMMARY | 2025-08-11 15:55 | XMS_ITS | Encounter Summary ---
Author Organization [facility] Address [address] [place] [address] Care Team Providers Care Cyber Security Architect Name Role Phone Arpita White MD Primary Care Provider Shanique Mccarthy MD Primary Care Provider Brandee [facility] Pcp Primary Care Provider Martina Cade MD Primary Care Provider Unavail Darin Ferrer MD Primary Care Provider [phone] Sushma Jin OFFICE CLIN ASST Primary Care Provider Aranza vailable Carolyn Skaggs MD Primary Care Prov ider Sushma Jin OFFICE CLIN ASST Primary Care Provider Aranza vailable Encounter Details Date Type Department Care Team Description 1999 [facility] - [address] [address] Shanique Ayala MD SINGLE LIVEBORN, BORN IN [...] delivery documented in this encounter Care Teams Cyber Security Architect Relationship Specialty Start Date End Date Arpita White MD PCP - General 99 07/22/18 Shanique Ayala MD PCP - General 1999 99 [facility], Pcp PCP - General Internal Medicine 07/23/18 12/20/18 Martina Gonzalez MD PCP - General Internal Medicine 12/21/18 10/14/21 Darin Restrepo MD [address] [place] [address] PCP - General Internal Medicine 10/15/21 06/16/22 Sushma Jin NP [address] [place] [address] PCP - General Internal Medicine 06/17/22 09/04/22 Carolyn Skaggs MD [address] [place] [address] PCP - General Internal Medicine 09/05/22 11/11/23 Sushma Jin NP [address] [place], [place] [id number] PCP - General Internal Medicine 11/12/23 documented as of this encounter
--- OUTSIDE RECORDS SUMMARY | 2025-08-11 15:55 | XMS_ITS | Encounter Summary ---
Author Organization [facility] Address [address] [place] [address] Care Team Providers Care Machinery Dismantler Name Role Phone Arpita White MD Primary [facility] Primary Care Provider [facility] Martina Diaz MD Primary Care Provider Unavail Darin Ferrer MD Primary Care Provider [phone] Sushma Jin CO CHAIRMAN Primary Care Provider Aranza vailable Carolyn Skaggs MD Primary Care Prov ider Sushma Jin CO CHAIRMAN Primary Care Provider Aranza vailable Encounter Details Date Type Department Care Team Description 12/05/2017 Stamps Or Coins Salesperson Report Medical Records [address] [place] [id number] Cameron Jones Social History Tobacco Use Types [...] on filedocumented in this encounter Care Teams Machinery Dismantler Relationship Specialty Start Date End Date Arpita White MD PCP - General 99 07/22/18 [facility], Pcp PCP - General Internal Medicine 07/23/18 12/20/18 Martina Gonzalez MD PCP - General Internal Medicine 12/21/18 10/14/21 Darin Restrepo MD [address] [place] [address] PCP - General Internal Medicine 10/15/21 06/16/22 Sushma Jin NP [address] [place] [address] PCP - General Internal Medicine 06/17/22 09/04/22 Carolyn Skaggs MD [address] [place] [address] PCP - General Internal Medicine 09/05/22 11/11/23 Sushma Jin NP [address] [place] [address] PCP - General Internal Medicine 11/12/23 documented as of this encounter
--- OUTSIDE RECORDS SUMMARY | 2025-08-11 15:55 | XMS_ITS | Encounter Summary ---
Author Organization [facility] Address [address] [place] [address] Care Team Providers Care Melter Clerk Name Role Phone Arpita White MD [facility] Primary Care Provider [facility] Martina Diaz MD Primary Care Provider Unavail Darin Ferrer MD Primary Care Provider [phone] Sushma Jin QUANTITATIVE ASSOCIATE Primary Care Provider Aranza vailable Carolyn Skaggs MD Primary Care Prov ider Sushma Jin QUANTITATIVE ASSOCIATE Primary Care Provider Aranza vailable Encounter Details Date Type Department Care Team Description 03/27/2016 Director Wholesale Report Medical Records [address] [place] [phone] Social History Tobacco Use Types Packs/Day Years [...] on filedocumented in this encounter Care Teams Melter Clerk Relationship Specialty Start Date End Date Arpita White MD PCP - General 99 07/22/18 [facility], Pcp PCP - General Internal Medicine 07/23/18 12/20/18 Martina Gonzalez MD PCP - General Internal Medicine 12/21/18 10/14/21 Darin Restrepo MD [address] [place] [address] PCP - General Internal Medicine 10/15/21 06/16/22 Sushma Jin NP [address] [place] [address] PCP - General Internal Medicine 06/17/22 09/04/22 Carolyn Skaggs MD [address] [place] [address] PCP - General Internal Medicine 09/05/22 11/11/23 Sushma Jin NP [address] [place] [address] PCP - General Internal Medicine 11/12/23 documented as of this encounter
--- OUTSIDE RECORDS SUMMARY | 2025-08-11 15:55 | XMS_ITS | Encounter Summary ---
Author Organization [facility] Address [address] [place] [address] Care Team Providers Care Pyroglazer Name Role Phone Martina Gonzalez MD Primary Care Provider Unavail Darin Ferrer MD Primary Care Provider [phone] Sushma Jin MARBLE SETTER Primary Care Provider Aranza vailable Carolyn Skaggs MD Primary Care Prov ider Sushma Jin MARBLE SETTER Primary Care Provider Aranza vailable Encounter Details Date Type Department Care Team Description 02/07/2021 Old Medical Records Medical Records [address] [place] [phone] Cameron Jones Social History Tobacco Use Types [...] on filedocumented in this encounter Care Teams Pyroglazer Relationship Specialty Start Date End Date Martina Gonzalez MD PCP - General Internal Medicine 12/21/18 10/14/21 Darin Restrepo MD [address] [place] [address] PCP - General Internal Medicine 10/15/21 06/16/22 Sushma Jin NP [address] [place] [address] PCP - General Internal Medicine 06/17/22 09/04/22 Carolyn Skaggs MD [address] [place] [address] PCP - General Internal Medicine 09/05/22 11/11/23 Sushma Jin NP [address] [place], [place] [address] PCP - General Internal Medicine 11/12/23 documented as of this encounter
--- OUTSIDE RECORDS SUMMARY | 2025-08-11 15:55 | XMS_ITS | Encounter Summary ---
Author Organization [facility] Address [address] [place] [address] Care Team Providers Care Nremt Name Role Phone Arpita White MD Primary Care [facility], Pcp [facility] Primary Care Provider Unavail Darin Ferrer MD Primary Care Provider [phone] Sushma Jin RECRUITER Primary Care Provider Aranza vailable Carolyn Skaggs MD Primary Care Prov ider Sushma Jin RECRUITER Primary Care Provider Aranza vailable Encounter Details Date Type Department Care Team Description 06/06/2017 Release of Information Medical Records [address] [place] [phone] Abstract, Provider Social History Tobacco Use Types [...] on filedocumented in this encounter Care Teams Nremt Relationship Specialty Start Date End Date Arpita White MD PCP - General 99 07/22/18 [facility], Pcp PCP - General Internal Medicine 07/23/18 12/20/18 Martina Gonzalez MD PCP - General Internal Medicine 12/21/18 10/14/21 Darin Restrepo MD [address] [place] [address] PCP - General Internal Medicine 10/15/21 06/16/22 Sushma Jin NP [address] [place] [address] PCP - General Internal Medicine 06/17/22 09/04/22 Carolyn Skaggs MD [address] [place] [address] PCP - General Internal Medicine 09/05/22 11/11/23 Sushma Jin NP [address] [place] [address] PCP - General Internal Medicine 11/12/23 documented as of this encounter
--- OUTSIDE RECORDS SUMMARY | 2025-08-11 15:55 | XMS_ITS | Encounter Summary ---
Author Organization [facility] Address [address] [place] [address] Care Team Providers Care Buttermaker Name Role Phone Martina Gonzalez MD Primary Care Provider Unavail able Darin Restrepo MD Primary Care Provider [phone] Sushma Jin PHOTONICS ENGINEER Primary Care Provider Aranza vailable Carolyn Skaggs MD Primary Care Prov ider Sushma Jin PHOTONICS ENGINEER Primary Care Provider Aranza vailable Encounter Details Date Type Department Care Team Description 03/12/2019 Manager Materials Management Report Medical Records [address] [place] [address] Cameron Jones Social History Tobacco Use Types [...] on filedocumented in this encounter Care Teams Buttermaker Relationship Specialty Start Date End Date Martina Gonzalez MD PCP - General Internal Medicine 12/21/18 10/14/21 Darin Restrepo MD [address] [place] [id number] PCP - General Internal Medicine 10/15/21 06/16/22 Sushma Jin NP [address] [place] [address] PCP - General Internal Medicine 06/17/22 09/04/22 Carolyn Skaggs MD [address] [place] [address] PCP - General Internal Medicine 09/05/22 11/11/23 Sushma Jin NP [address] [place] [address] PCP - General Internal Medicine 11/12/23 documented as of this encounter
--- OUTSIDE RECORDS SUMMARY | 2025-08-11 15:55 | XMS_ITS | Encounter Summary ---
Author Organization [facility] Address [address] [place] [address] Care Team Providers Care Finger Buff Sewer Name Role Phone Arpita White MD Primary Care Provider [facility], Pcp Primary Care Provider Martina Cade MD Primary Care Provider Unavail Darin Ferrer MD Primary Care Provider [phone] Sushma Jin MANAGER REGISTRATION Primary Care Provider Aranza vailable Carolyn Skaggs MD Primary Care Prov ider Sushma Jin MANAGER REGISTRATION Primary Care Provider Aranza vailable Reason for Visit * Reason Comments E-prescribe Rx Request Encounter Details Date Type Department Care Team Description 12/21/2015 Refill Pediatrics - [address] [phone] Arpita White MD E-prescribe Rx Request Social [...] of the day? NO Arpita White Payor: [facility] MEDICAID / Plan: [facility] MEDICAID HMO $0 [place] / Product Type: HMO [id number] documented in this encounter Plan of Treatment Not on file documented as of this encounter Visit Diagnoses Not on filedocumented in this encounter Care Teams Finger Buff Sewer Relationship Specialty Start Date End Date Arpita White MD PCP - General 99 07/22/18 [facility] PCP - General Internal Medicine 07/23/18 12/20/18 Martina Gonzalez MD PCP - General Internal Medicine 12/21/18 10/14/21 Darin Restrepo MD [address] [place] [address] PCP - General Internal Medicine 10/15/21 06/16/22 Sushma Jin NP [address] [place], [place] [phone] PCP - General Internal Medicine 06/17/22 09/04/22 Carolyn Skaggs MD [address] [place] [address] PCP - General Internal Medicine 09/05/22 11/11/23 Sushma Jin NP [address] [place] [address] PCP - General Internal Medicine 11/12/23 documented as of this encounter
--- OUTSIDE RECORDS SUMMARY | 2025-08-11 15:55 | XMS_ITS | Encounter Summary ---
Author Organization [facility] Address [address] [place] [address] Care Team Providers Care Clinical Services Manager Name Role Phone Martina Gonzalez MD Primary Care Provider Unavail Darin Ferrer MD Primary Care Provider [phone] Sushma Jin GALLERY OR MUSEUM GUIDE Primary Care Provider Aranza vailable Carolyn Skaggs MD Primary Care Prov ider Sushma Jin GALLERY OR MUSEUM GUIDE Primary Care Provider Aranza vailable Encounter Details Date Type Department Care Team Description 07/18/2021 Residential Property Tax Appraiser Report Medical Records [address] [place] [address] Lucas Leal, PACooperC Social History Tobacco Use [...] on filedocumented in this encounter Care Teams Clinical Services Manager Relationship Specialty Start Date End Date Martina Gonzalez MD PCP - General Internal Medicine 12/21/18 10/14/21 Darin Restrepo MD [address] [place] [phone] PCP - General Internal Medicine 10/15/21 06/16/22 Sushma Jin NP [address] [place] [address] PCP - General Internal Medicine 06/17/22 09/04/22 Carolyn Skaggs MD [address] [place] [address] PCP - General Internal Medicine 09/05/22 11/11/23 Sushma Jin NP [address] [place] [address] PCP - General Internal Medicine 11/12/23 documented as of this encounter
--- OUTSIDE RECORDS SUMMARY | 2025-08-11 15:55 | XMS_ITS | Encounter Summary ---
Author Organization [facility] Address [address] [place] [address] Care Team Providers Care Can Inspector Name Role Phone Arpita White MD Primary [facility] Primary Care Provider [facility] Martina Diaz MD Primary Care Provider Unavail able Darin Restrepo MD Primary Care Provider [phone] Sushma Jin NP Primary Care Provider Aranza vailable Carolyn Skaggs MD Primary Care Prov ider Sushma Jin PEDIATRIC GENETICIST Primary Care Provider Aranza vailable Encounter Details Date Type Department Care Team Description 12/26/2015 Telephony Engineer Report Medical Records [address] [place] [address] Blanca Foster MD Social History Tobacco Use [...] on filedocumented in this encounter Care Teams Can Inspector Relationship Specialty Start Date End Date Arpita White MD PCP - General 99 07/22/18 [facility], Pcp PCP - General Internal Medicine 07/23/18 12/20/18 Martina Gonzalez MD PCP - General Internal Medicine 12/21/18 10/14/21 Darin Restrepo MD [address] [place] [address] PCP - General Internal Medicine 10/15/21 06/16/22 Sushma Jin NP [address] [place] [address] PCP - General Internal Medicine 06/17/22 09/04/22 Carolyn Skaggs MD [address] [place] [address] PCP - General Internal Medicine 09/05/22 11/11/23 Sushma Jin NP [address] [place] [address] PCP - General Internal Medicine 11/12/23 documented as of this encounter
--- OUTSIDE RECORDS SUMMARY | 2025-08-11 15:55 | XMS_ITS | Encounter Summary ---
Author Organization [facility] Address [address] [place] [address] Care Team Providers Care Economic Development Specialist Name Role Phone Martina Gonzalez MD Primary Care Provider Unavail able Darin Restrepo MD Primary Care Provider [phone] Sushma Jin ROTARY ROCK DRILLING MACHINE OPERATOR Primary Care Provider Aranza vailable Carolyn Skaggs MD Primary Care Prov ider Sushma Jin ROTARY ROCK DRILLING MACHINE OPERATOR Primary Care Provider Aranza vailable Encounter Details Date Type Department Care Team Description 01/11/2019 Release of Information Medical Records [address] [place] [id number] Abstract, Provider Social History Tobacco Use Types [...] on filedocumented in this encounter Care Teams Economic Development Specialist Relationship Specialty Start Date End Date Martina Gonzalez MD PCP - General Internal Medicine 12/21/18 10/14/21 Darin Restrepo MD [address] [place] [address] [id number] PCP - General Internal Medicine 10/15/21 06/16/22 Sushma Jin NP [address] [place] [address] PCP - General Internal Medicine 06/17/22 09/04/22 Carolyn Skaggs MD [address] [place] [address] PCP - General Internal Medicine 09/05/22 11/11/23 Sushma Jin NP [address] [place] [address] PCP - General Internal Medicine 11/12/23 documented as of this encounter
--- OUTSIDE RECORDS SUMMARY | 2025-08-11 15:55 | XMS_ITS | Encounter Summary ---
Author Organization [facility] Address [address] [place] [address] Care Team Providers Care Grain Mixer Name Role Phone Arpita White MD Primary Care Provider [facility], Pcp Primary Care Provider Martina Cade MD Primary Care Provider Unavail Darin Ferrer MD Primary Care Provider [phone] Sushma Jin NP Primary Care Provider Aranza vailable Carolyn Skaggs MD Primary Care Prov ider Sushma Jin MATERIALS PLANNING MANAGER Primary Care Provider Aranza vailable Reason for Visit * Reason Comments E-prescribe Rx Request Encounter Details Date Type Department Care Team Description 12/23/2016 Refill Pediatrics - [address] [phone] Arpita White MD E-prescribe Rx Request Social [...] of the day? NO Arpita White Payor: [facility] MEDICAID / Plan: [facility] MEDICAID O $0 [place] / Product Type: HMO [id number] documented in this encounter Plan of Treatment Not on file documented as of this encounter Visit Diagnoses Not on filedocumented in this encounter Care Teams Grain Mixer Relationship Specialty Start Date End Date Arpita White MD PCP - General 99 07/22/18 [facility] PCP - General Internal Medicine 07/23/18 12/20/18 Martina Gonzalez MD PCP - General Internal Medicine 12/21/18 10/14/21 Darin Restrepo MD [address] [place] [address] PCP - General Internal Medicine 10/15/21 06/16/22 Sushma Jin MATERIALS PLANNING MANAGER [address] [place] [address] PCP - General Internal Medicine 06/17/22 09/04/22 Carolyn Skaggs MD [address] [place] [address] PCP - General Internal Medicine 09/05/22 11/11/23 Sushma Jin NP [address] [place] [address] PCP - General Internal Medicine 11/12/23 documented as of this encounter
--- OUTSIDE RECORDS SUMMARY | 2025-08-11 15:55 | XMS_ITS | Clinical Summary ---
Author Organization [facility] Address [address] [place] [address] Phone Care Team Providers Care Motorboat Mechanic Inboard Name Role Phone Darin Restrepo MD Primary [...] SCREENING (18-65 YEARS) 2017 PAP SMEAR 2020 POTASSIUM LEVEL 01/21/2025 01/22/2024, 09/24, 11/25/2017 SMOKING STATUS SCREENING (Once After 26 Yrs) 2025 INFLUENZA VACCINE (#1) 2025 , 09/07/2020, 08/26/2019, Additional history exists COVID-19 VACCINE (2024- season) 2025 09/06/2021, 01/29/2021, 01/08/2021 Adult Td,Tdap Booster 04/27/2031 04/27/2021, 011 HIB [...] EST) SODIUM 140 133 - 146 mmol/L [facility] CHLORIDE 103 96 - 108 mmol/L [facility] POTASSIUM 4.6 3.3 - 5.1 mmol/L [facility] CO2 27 21 - 35 mmol/L [facility] BUN 15 6 - 19 mg/dL [facility] CREATININE 1.00 0.5 - 1.5 mg/dL [facility] GLUCOSE 100(H) 70 - 99 mg/dL [facility] CALCIUM 9.2 8.4 - 10.3 mg/dL [facility] EGFR 81 >59 mL/min/1.7 3m2 [facility] Comment:Estimated glomerular filtration rate calculated using the CKD-EPI refit equation. ANION GAP 15 10 - 20 mmol/L [facility] Blood 01/22/2024 12:3 5 AM EST 01/22/2024 12:40 AM EST us Grayson Ivan DO LAB BLOOD ORDERABLES F inal Result [facility] [address] [place] [address] from Last 3 Months or Most Recently Relevant to Health Maintenance Insurance [facility] MEDICARE REPLACEMENT [place] [id number] [facility] RE[facility] [address] [address] [facility] MEDICARE REPLACEMENT CARE MEDICARE REPLACEMENT CARE MEDICARE REPLACEMENT [place] [id number] [facility] [address] [address] [facility] MEDICARE REPLACEMENT [place] [id number] [facility] Care Teams Motorboat Mechanic Inboard Relationship Specialty Start Date End Date Darin Restrepo MD [address] [place] [address] PCP - General Internal Medicine 11/30/21 Additional Source Comments The information contained in this document represents components of the legal health record. It is not the complete legal health record.[facility]
--- OUTSIDE RECORDS SUMMARY | 2025-08-11 15:55 | XMS_ITS | Encounter Summary ---
Author Organization [facility] Address [address] [place] [address] Care Team Providers Care Collar Sewer Name Role Phone Arpita White MD Primary Care Provider Shanique Mccarthy MD Primary Care Provider Brandee [facility] Pcp Primary Care Provider Martina Cade MD Primary Care Provider Unavail Darin Ferrer MD Primary Care Provider [phone] Sushma Jin SENIOR MARKETING MANAGER Primary Care Provider Aranza vailable Carolyn Skaggs MD Primary Care Prov ider Sushma Jin SENIOR MARKETING MANAGER Primary Care Provider Aranza vailable Encounter Details Date Type Department Care Team Description 1999 [place] [facility] - [address] [address] Arpita White MD SINGLE LIVEBORN, BORN IN [...] delivery documented in this encounter Care Teams Collar Sewer Relationship Specialty Start Date End Date Arpita White MD PCP - General 99 07/22/18 Shanique Ayala MD PCP - General 1999 99 [facility], Pcp PCP - General Internal Medicine 07/23/18 12/20/18 Martina Gonzalez MD PCP - General Internal Medicine 12/21/18 10/14/21 Darin Restrepo MD [address] [place] [address] PCP - General Internal Medicine 10/15/21 06/16/22 Sushma Jin NP [address] [place] [address] PCP - General Internal Medicine 06/17/22 09/04/22 Carolyn Skaggs MD [address] [place] [address] PCP - General Internal Medicine 09/05/22 11/11/23 Sushma Jin NP [address] [place] [address] PCP - General Internal Medicine 11/12/23 documented as of this encounter
--- OUTSIDE RECORDS SUMMARY | 2025-08-11 15:56 | XMS_ITS | Encounter Summary ---
Author Organization [facility] Address [address] [place] [address] Care Team Providers Care Foundation Digger Name Role Phone Arpita White MD Primary Care Provider Shanique Mccarthy MD Primary Care Provider Brandee cano [facility], Pcp Primary Care Provider Martina Cade MD Primary Care Provider Unavail Darin Ferrer MD Primary Care Provider [phone] Sushma Jin VENDING ROUTE SERVICER Primary Care Provider Aranza vailable Carolyn Skaggs MD Primary Care Prov ider Sushma Jin VENDING ROUTE SERVICER Primary Care Provider Aranza vailable Encounter Details Date Type Department Care Team Description 1999 [facility] - [address] [address] Live Orellana MD DRUG WITHDRAWAL SYNDROME IN [...] in documented in this encounter Care Teams Foundation Digger Relationship Specialty Start Date End Date Arpita White MD PCP - General 99 07/22/18 Shanique Ayala MD PCP - General 1999 99 [facility], Pcp PCP - General Internal Medicine 07/23/18 12/20/18 Martina Gonzalez MD PCP - General Internal Medicine 12/21/18 10/14/21 Darin Restrepo MD [address] [place] [address] PCP - General Internal Medicine 10/15/21 06/16/22 Sushma Jin NP [address] [place] [address] PCP - General Internal Medicine 06/17/22 09/04/22 Carolyn Skaggs MD [address] [place] [address] PCP - General Internal Medicine 09/05/22 11/11/23 Sushma Jin NP [address] [place] [address] PCP - General Internal Medicine 11/12/23 documented as of this encounter
--- OUTSIDE RECORDS SUMMARY | 2025-08-11 15:56 | XMS_ITS | Clinical Summary ---
Author Organization [address] Address [address] [place] [phone] Phone Care Team Providers Care Strip Machine Tender Name Role Phone Unavailable Primary Care Provider Unavailabl e Allergies Active Allergy Reactions Criticality Noted Date Comments Cephalexin 10/23/2020 Burning sensation all over body. Doxycycline Hyclate 10/23/2020 hives Penaten 02/20/2023 Penicillin G Hives High 02/17/2023 Pt stated had bad reaction. She had hives all over the body. Sulfa (Sulfonamide Antibiotics) 03/06/2021 Medications cloNIDine ([id number] ) 0.3 mg/[address] 1 Patch onto the skin once a week. 4 Active emollient comb no.2, bulk, ointment Apply 0.5 g topically 2 times daily. 5% gabapentin ointment Sig: Apply 0.5 g daily to affected area Patient phone number: [phone] (home) 3 Active cholecalciferol (VITAMIN D-3) 1,250 [...] processing disorder 08/27/2024 Overview (08/27/2024): according to [employer] [facility] hearing report dated 01-15-13 Report from [...] obesity with BMI of 6 0.0-69.9, adult ([facility] V24, [facility] V28) 08/27/2024 Chlamydia 11/14/2023 PCOS [...] Anxiety 11/08/2016 Overview (08/27/2024): Med provider Dr Rilye through Clinical support options: uses sertraline daily [...] 04-14-12: no controllers; no recent F/U Dr. uCmmins Asthma Control Test Total Score: 16 started flovent 220 2 p daily 04-30-13: Asthma Control Test Total Score: 19 Interpetation of Score: < or equal to 19 Intervention Recommended ACT -14 = 20 05-04-[facility]: [facility] as of 08-08- no prob since 03-27-16: [facility] pred 40mg As of [...] eval confirms dx of ADHD- accommodations in [employer]- full inclusion 03-07-15: normal [...] (Infanrix) 6wks to less than 7yo ,07/17/2000,1999,09/04,1999 [id number] (Pentacel) 2mo to less than 5yo 06/18/2000,1999,1999,06/01 H1N1 Inj Preservative Free 12/22/2009 HPV, Quadrivalent 04/30/2013,07/14/2012,04/14/20 12 Hepatitis B (Tmfvkbc-H-Duzrz , Recombivax HB-Adult) 19yo and older 07/12/2020,02/09/2020,01/05/2020 [...] 04/27/2003,06/12/2000 Meningococcal MCV4P 08/08/2015,04/14/2012 PPD Test 11/10/2019 [employer] SARS-CoV-2 COVID-19, mRNA, LNP-S, preservative free 09/04/2021 [...] TUBES OTHER SURGICAL HISTORY age 1.5yr PROCEDURE: [place] BRONCHOSCOPY W/TRANSBRONCHIAL LUNG BX 1 LOBE EYE SURGERY PROCEDURE: HISTORICAL EYE SURGERY Medical History Medical History Date Comments Essential hypertension 08/31/2019 DX:Essent ial hypertension Migraine with aura DX:Migraine w ith aura; COMMENT: Naprosyn 04-14-12: worsening- started amitriptyline 25 mg hs Saw neurologist and is on topamax- now 100 mg 08-08-15: ped neuro- verapamil 40 mg bid in addition to [id number] mg hs; fioricet PRN, riboflavin, magnesium 10-10-15: [...] 2:00 PM EST Office Visit Nephrology - [address] [place] [address] Christopher Pollard MD [address] [place] [address] Health Maintenance Due Date Last Done Comments Pneumococcal Vaccine: Pediatrics (0 to 5 Years) and At-Risk Patients (6 to 49 Years) (1 of 1 - PPSV23) 10/26/2019 08/31/2019, 04/14/2001, 07/17/2000 HIV Screening 11/02/2022 Hepatitis C Screening 11/02/2022 Social Influencers of Health Screening 11/02/2022 Depression Screening 11/24/2024 10/06/2023 Hypertension/CHF/CAD Annual BMP Blood Test 01/21/2025 01/22/2024 COVID-19 Vaccine ( season) 2025 09/04/2021, 01/29/2021, 01/08/2021 Influenza Vaccine (#1) 2025 , 09/04/2021, 08/26/2019, [...] * Annual BMP Blood Test (01/22/2024) Pathologist [facility] Annual BMP Blood Test abstracted [facility] Provider MD HEALTH MAINTENANCE Final Result * Gonorrhea/Chlamydia Screening (11/13/2023) Pathologist [facility] Gonorrhea/Chla mydia Screening abstracted [facility] Provider MD HEALTH MAINTENANCE Final Result * Depression Screening (10/06/2023) Pathologist [facility] Depression Screening abstracted [facility] Provider MD HEALTH MAINTENANCE Final Result * Lipid panel (12/06/2022) [facility] LDL/HDL Ratio 2 0 - 4 Triglycerides 71 0 - 150 mg/dL Cholesterol 117 0 - 200 mg/dL HDL 48 >=40 mg/dL LDL Cholesterol 55 0 - 100 mg/dL Blood Venous blood specimen / Unknown us Historical Provider LAB BLOOD ORDERABLES [facility] Result * Pap smear (09/05/2022) 09/05/2022 Narrative HISTORICAL TESTING LAB RESULTING AGENCY - 09/12/2022 7:30 AM EDT [id number] THINPREP PAP, IMAGED: NEGATIVE FOR SQUAMOUS INTRAEPITHELIAL [...]
--- OUTSIDE RECORDS SUMMARY | 2025-08-11 15:56 | XMS_ITS | Encounter Summary ---
Author Organization [facility] Address [address] [place] [address] Care Team Providers Care Embroiderer Name Role Phone Arpita White MD Primary Care Provider Shanique Mccarthy MD Primary [facility] Primary Care Provider Martina Cade MD Primary Care Provider Unavail Darin Ferrer MD Primary Care Provider [phone] Sushma Jin AVIONICS ELECTRONICS TECHNICIAN Primary Care Provider Aranza vailable Carolyn Skaggs MD Primary Care Prov ider Sushma Jin AVIONICS ELECTRONICS TECHNICIAN Primary Care Provider Aranza vailable Encounter Details Date Type Department Care Team Description 1999 [facility] - [address] [address] Ninfa Parra [address] [place] [id number] DRUG WITHDRAWAL SYNDROME IN Social History Tobacco [...] in documented in this encounter Care Teams Embroiderer Relationship Specialty Start Date End Date Arpita White MD PCP - General 99 07/22/18 Shanique Ayala MD PCP - General 1999 99 [facility], Pcp PCP - General Internal Medicine 07/23/18 12/20/18 Martina Gonzalez MD PCP - General Internal Medicine 12/21/18 10/14/21 Darin Restrepo MD [address] [place] [address] PCP - General Internal Medicine 10/15/21 06/16/22 Sushma Jin NP [address] [place] [address] PCP - General Internal Medicine 06/17/22 09/04/22 Carolyn Skaggs MD [address] [place] [address] PCP - General Internal Medicine 09/05/22 11/11/23 Sushma Jin NP [address] [place], [place] [phone] PCP - General Internal Medicine 11/12/23 documented as of this encounter
--- OUTSIDE RECORDS SUMMARY | 2025-08-11 15:56 | XMS_ITS | Encounter Summary ---
Author Organization [facility] Address [address] [place] [address] Care Team Providers Care Conceptor Name Role Phone Arpita White MD Primary Care Provider Shanique Mccarthy MD Primary [facility] Primary Care Provider Martina Cade MD Primary Care Provider Unavail Darin Ferrer MD Primary Care Provider [phone] Sushma Jin FABRICATOR INDUSTRIAL FURNACE Primary Care Provider Aranza vailable Carolyn Skaggs MD Primary Care Prov ider Sushma Jin FABRICATOR INDUSTRIAL FURNACE Primary Care Provider Aranza vailable Encounter Details Date Type Department Care Team Description 1999 [facility] - [address] [id number] Arpita White MD DISORDERS RELATING TO OTHER INFANTS, [phone] GRAMS Social History Tobacco Use Types Packs/Day Years Used Date Smoking Tobacco: Never Assessed Sex Assigned at Date Recorded Female 03/19/2022 3:55 PM E [employer] Job Start Date Occupation Industry Not on file Not on file Not on file documented as of this encounter Plan of Treatment Not on file documented as of this encounter Visit Diagnoses Diagnosis Other infants, 1,250-1,499 grams(765.15) Other infants, 1,250-1,499 grams documented in this encounter Care Teams Conceptor Relationship Specialty Start Date End Date Arpita White MD PCP - General 99 07/22/18 Shanique Ayala MD PCP - General 1999 99 [facility], Pcp PCP - General Internal Medicine 07/23/18 12/20/18 Martina Gonzalez MD PCP - General Internal Medicine 12/21/18 10/14/21 Darin Restrepo MD [address] [place] [address] PCP - General Internal Medicine 10/15/21 06/16/22 Sushma Jin NP [address] [place] [address] PCP - General Internal Medicine 06/17/22 09/04/22 Carolyn Skaggs MD [address] [place] [address] PCP - General Internal Medicine 09/05/22 11/11/23 Sushma Jin NP [address] [place] [address] PCP - General Internal Medicine 11/12/23 documented as of this encounter
--- OUTSIDE RECORDS SUMMARY | 2025-08-11 15:56 | XMS_ITS | Encounter Summary ---
Author Organization [facility] Address [address] [place] [address] Care Team Providers Care Websphere Commerce Developer Name Role Phone Arpita White MD Primary Care Provider Shanique Mccarthy MD Primary Care Provider Brandee cano [facility], Pcp Primary Care Provider Martina Cade MD Primary Care Provider Unavail Darin Ferrer MD Primary Care Provider [phone] Sushma Jin RESEARCH ENGINEER Primary Care Provider Aranza vailable Carolyn Skaggs MD Primary Care Prov ider Sushma Jin RESEARCH ENGINEER Primary Care Provider Aranza vailable Encounter Details Date Type Department Care Team Description 1999 [facility] - [address] [address] Shanique Ayala MD DRUG WITHDRAWAL SYNDROME IN Social History [...] in documented in this encounter Care Teams Websphere Commerce Developer Relationship Specialty Start Date End Date Arpita White MD PCP - General 99 07/22/18 Shanique Ayala MD PCP - General 1999 99 [facility], Pcp PCP - General Internal Medicine 07/23/18 12/20/18 Martina Gonzalez MD PCP - General Internal Medicine 12/21/18 10/14/21 Darin Restrepo MD [address] [place] [address] PCP - General Internal Medicine 10/15/21 06/16/22 Sushma Jin NP [address] [place] [address] PCP - General Internal Medicine 06/17/22 09/04/22 Carolyn Skaggs MD [address] [place] [address] PCP - General Internal Medicine 09/05/22 11/11/23 Sushma Jin NP [address] [place], [place] [phone] PCP - General Internal Medicine 11/12/23 documented as of this encounter
--- OUTSIDE RECORDS SUMMARY | 2025-08-11 15:56 | XMS_ITS | Encounter Summary ---
Author Organization [facility] Address [address] [place] [address] Care Team Providers Care Explosive Ordnance Specialist Name Role Phone Arpita White MD Primary Care Provider Shanique Mccarthy MD Primary Care Provider Brandee [facility] Pcp Primary Care Provider Martina Cade MD Primary Care Provider Unavail Darin Ferrer MD Primary Care Provider Sushma Jin COMFORT ADVISOR Primary Care Provider Aranza vailable Carolyn Skaggs MD Primary Care Prov ider Sushma Jin COMFORT ADVISOR Primary Care Provider Aranza vailable Encounter Details Date Type Department Care Team Description 1999 [facility] - [address] [phone] Tom Jones MD SINGLE LIVEBORN, BORN IN HOSPITAL, DELIVERED [...] delivery documented in this encounter Care Teams Explosive Ordnance Specialist Relationship Specialty Start Date End Date Arpita White MD PCP - General 99 07/22/18 Shanique Ayala MD PCP - General 1999 99 [facility], Pcp PCP - General Internal Medicine 07/23/18 12/20/18 Martina Gonzalez MD PCP - General Internal Medicine 12/21/18 10/14/21 Darin Restrepo MD [address] [place] [address] PCP - General Internal Medicine 10/15/21 06/16/22 Sushma Jin NP [address] [place] [address] PCP - General Internal Medicine 06/17/22 09/04/22 Carolyn Skaggs MD [address] [place] [address] PCP - General Internal Medicine 09/05/22 11/11/23 Sushma Jin NP [address] [place] [address] PCP - General Internal Medicine 11/12/23 documented as of this encounter
--- OUTSIDE RECORDS SUMMARY | 2025-08-11 15:56 | XMS_ITS | Encounter Summary ---
Author Organization [facility] Address [address] [place] [address] Care Team Providers Care User Interface Artist Name Role Phone Arpita White MD Primary Care Provider Shanique Mccarthy MD [facility] Primary Care Provider Martina Cade MD Primary Care Provider Unavail Darin Ferrer MD Primary Care Provider Sushma Jin PERSONAL ATTENDANT Primary Care Provider Aranza vailable Carolyn Skaggs MD Primary Care Prov ider Sushma Jin PERSONAL ATTENDANT Primary Care Provider Aranza vailable Encounter Details Date Type Department Care Team Description 1999 [facility] - [address] [phone] Alecia Duarte [address] [place] [id number] DRUG WITHDRAWAL SYNDROME IN Social History Tobacco [...] in documented in this encounter Care Teams User Interface Artist Relationship Specialty Start Date End Date Arpita White MD PCP - General 99 07/22/18 Shanique Ayala MD PCP - General 1999 99 [facility], Pcp PCP - General Internal Medicine 07/23/18 12/20/18 Martina Gonzalez MD PCP - General Internal Medicine 12/21/18 10/14/21 Darin Restrepo MD [address] [place] [address] PCP - General Internal Medicine 10/15/21 06/16/22 Sushma Jin NP [address] [place] [address] PCP - General Internal Medicine 06/17/22 09/04/22 Carolyn Skaggs MD [address] [place] [address] PCP - General Internal Medicine 09/05/22 11/11/23 Sushma Jin NP [address] [place], [place] [phone] PCP - General Internal Medicine 11/12/23 documented as of this encounter
--- OUTSIDE RECORDS SUMMARY | 2025-08-11 15:56 | XMS_ITS | Encounter Summary ---
Author Organization [facility] Address [address] [place] [address] Care Team Providers Care Pilot Fuel Engineer Name Role Phone Arpita White MD Primary Care Provider [facility] Primary [facility] Primary Care Provider Unavail Darin Ferrer MD Primary Care Provider [phone] Sushma Jin MANUSCRIPTS CURATOR Primary Care Provider Aranza vailable Carolyn Skaggs MD Primary Care Prov ider Sushma Jin MANUSCRIPTS CURATOR Primary Care Provider Aranza vailable Encounter Details Date Type Department Care Team Description 07/28/2014 Release of Information Medical Records [address] [place] [id number] Abstract, Provider Social History Tobacco Use Types [...] on filedocumented in this encounter Care Teams Pilot Fuel Engineer Relationship Specialty Start Date End Date Arpita White MD PCP - General 99 07/22/18 [facility], Pcp PCP - General Internal Medicine 07/23/18 12/20/18 Martina Gonzalez MD PCP - General Internal Medicine 12/21/18 10/14/21 Darin Restrepo MD [address] [place] [address] PCP - General Internal Medicine 10/15/21 06/16/22 Sushma Jin NP [address] [place] [address] PCP - General Internal Medicine 06/17/22 09/04/22 Carolyn Skaggs MD [address] [place] [address] PCP - General Internal Medicine 09/05/22 11/11/23 Sushma Jin NP [address] [place], [place] [phone] PCP - General Internal Medicine 11/12/23 documented as of this encounter
== END 2025-08-11 14:41 | disposition home or self-care (01) ==
LOC: HO.HSMS 13:52
PROVIDERS: Visit Provider Physician Assistant Medical
DX: G47.33 Obstructive sleep apnea (adult) (pediatric) (principal); R53.83 Other fatigue; G47.9 Sleep disorder, unspecified; Z72.821 Inadequate sleep hygiene; E66.01 Morbid (severe) obesity due to excess calories; Z68.44 Body mass index [BMI] 60.0-69.9, adult; G43.719 Chronic migraine without aura, intractable, without status migrainosus; G25.81 Restless legs syndrome; G47.30 Sleep apnea, unspecified; E28.2 Polycystic ovarian syndrome
CPT/HCPCS: 99214

== ENCOUNTER → 2025-08-11 13:51 | Outpatient (BNVA) | payer MEDICARE, SELFPAY | PROVIDERS: Visit Provider Physician Assistant Medical | DX: G47.33 Obstructive sleep apnea (adult) (pediatric) (principal); G47.9 Sleep disorder, unspecified; R53.83 Other fatigue; G43.719 Chronic migraine without aura, intractable, without status migrainosus; G25.81 Restless legs syndrome; G47.30 Sleep apnea, unspecified; E28.2 Polycystic ovarian syndrome; E66.01 Morbid (severe) obesity due to excess calories; Z72.821 Inadequate sleep hygiene; Z68.42 Body mass index [BMI] 45.0-49.9, adult | CPT/HCPCS: 99212 ==

== ENCOUNTER 2025-08-15 13:40 | Emergency (ER) | payer MEDICARE, SELFPAY ==
[2025-08-15 14:20] VITALS: BP 157/103; PULSE 92; RESP 16; TEMP 36.4; O2SAT 99; BMI 45.3
--- NOTE | 2025-08-15 14:25 | ED_ITS ---
HPI - General Adult General Chief complaint: Nausea/Vomiting/Diarrhea Stated complaint: 1m post op gastric sleeves, dehydrated Time Seen by Provider: 08/15/25 17:48 Source: patient, RN notes reviewed and old records reviewed Mode of arrival: ambulatory Limitations: no limitations History of Present Illness ED Provider: Demetrio HPI narrative: 25-year-old female with a past medical history significant for morbid obesity status post gastric sleeve on 07/14/2025 presents for evaluation of weakness and nausea. Patient reports she was initially doing well but over the last few days has had increasing nausea. She was not vomited. She has no significant abdominal pain. She feels weak and fatigued She does feel as though she has heartburn which is leading to her increased nausea. Denies any black or bloody stool pain She sees the bariatric surgeon office this Friday for follow up Denies any fevers or chills. She was able to take some fluids down without vomiting that feels as though she was having trouble keeping up due to her nausea Related Data Home Medications ?Medication ?Instructions ?Recorded ?Confirmed levonorgestrel (Mirena) intrauterine 01/21/25 Previous Rx's ?Medication ?Instructions ?Recorded albuterol sulfate 90 mcg/actuation 1 inh inhalation QI D PRN shortness 01/21/25 aerosol inhaler of breath or wheezing #8.5 g anna lisinopril 5 mg tablet 5 mg PO DAILY #90 tabs 05/11 Held on 07/15/25. Instructions: Resume on 07/15/25. Resume only according to parameters given by Dr. Rossi sertraline 50 mg tablet 50 mg PO DAILY #90 tabs 04/24 07/18 ondansetron 4 mg disintegrating 4 mg PO Q12H nausea an d vomiting 06/29/25 tablet #20 tabs pantoprazole 40 mg tablet,delayed 40 mg PO DAILY #90 t abs 06/29/25 release sucralfate 100 mg/mL oral 10 ml PO BID #600 mL 5 suspension gabapentin 100 mg capsule 300 mg (3 x 100 mg) PO BEDTI ME RLS 08/11/25 2 months #180 caps ondansetron HCl 4 mg tablet 4 mg PO Q8H PRN nausea and 08/15/25 vomiting #30 tabs Allergies Allergy/AdvReac Type Severity Reaction Status Date / Time cephalexin (From Keflex) Allergy Intermediate Redness of Verified 08/15/25 14:24 Skin doxycycline Allergy Intermediate Hives Verified 08/15/25 14:24 Penicillins Allergy Intermediate Hives, Verified 08/15/25 14:24 burning sensation Sulfa (Sulfonamide Allergy Intermediate Hives,palpa Verified 08/15/25 14:24 Antibiotics) tations Review of Systems 2 Constitutional: Constitutional: Denies body ache(s), Denies chills, Denies fever(s), Reports lethargy, Reports malaise and Reports poor appetite Eyes: Eyes: Denies blurry vision ENT: Denies dizziness and Denies dry mouth Cardiovascular: Cardiovascular: Denies chest pain and Denies dyspnea on exertion Respiratory: Respiratory: Denies cough and Denies dyspnea on exertion Gastrointestinal: Gastrointestinal: Denies abdominal pain, Denies melena, Denies hematochezia, Reports nausea and Denies vomiting Musculoskeletal: Musculoskeletal: Denies back pain Integumentary/Breasts: Skin/Breast: Denies rash Neurologic: Denies dizziness [facility] Past Medical History Medical History Annual physical exam Well woman exam with routine gynecological exam Morbid obesity with BMI of 60.0-69.9, adult Screening for cervical cancer Sleep apnea treated with nocturnal bilevel positive airway pressure (BPAP) Sleep apnea PCOS (polycystic ovarian syndrome) Migraines ADHD (attention deficit hyperactivity disorder) Depression GERD (gastroesophageal reflux disease) Morbid obesity Asthma High blood pressure Surgical History S/P gastric sleeve procedure S/P tonsillectomy History of eye surgery Family History Family History Maternal Grandmother Breast cancer Mother Diabetes Other HTN (hypertension) Social History Social History Household Members: None Housing: Apartment Are you a primary managed care director to a significant other at home: No Do you presently have visiting nurse or other home services: No Alcohol intake: current Alcohol intake frequency: holidays/special occasions only Patient Tobacco Use Status: Never used Tobacco Smoked in Last 30 Days: No e-Cigarette/Vaping Use: Never Used Second Hand Smoke Exposure: No Use of substances other than those prescribed or required for medical reasons: No Advance Directives: No Advance Directives Information Provided: No service: No Current occupational status: employed Cognitive needs: No Hearing needs: No Vision needs: Yes (Glasses) Physical Exam ED Vital Signs: Vital Signs - 24 hr 08/15/25 14:20 08/15/25 17:52 Temperature 97.6 F 98.1 F Pulse Rate 92 85 Respiratory Rate 16 16 Blood Pressure 157/103 H 127/71 Pulse Oximetry 99 100 Oxygen Delivery Method Room Air Room Air BMI result Body Mass Index 45.3 Const General: healthy appearing, comfortable, no acute distress, alert and awake Nutritional Appearance: well nourished Orientation/consciousness: patient oriented x3 HENMT Head: Yes normocephalic and Yes atraumatic Eyes Eyelids: Yes eyelids normal Conjunctivae: conjunctivae normal Sclerae: sclerae normal Corneas: corneas normal Pupils: Equal, round and reactive pupils present EOM: EOMs intact bilaterally Neck Neck: Yes full ROM Resp Effort & Inspection: normal respiratory effort, able to speak in complete sentences and not labored Cardio Rate: regular rate Rhythm: regular rhythm GI Inspection: No distended and Yes obesity Palpation (GI): Soft to palpation, not firm, nontender, no guarding and not rigid Skin General skin exam: elasticity normal Neuro General: patient oriented x3 Cranial nerves: Yes Equal, round and reactive pupils present and Yes Bilaterally intact EOM present Cognition (Neuro): normal cognition Extrem Other: Moving all extremities well without any obvious deformities Course Course Course Narrative: This is a Rapid Medical Examination (RME) performed by Onel Pollock PA-C in triage. Full HPI, ROS, assessment and treatment plan per primary provider in the Main ED. Hx: 25 yo F here for eval of decreased appetite, nausea, and increased acid reflux s/p gastric sleeve 1 mo ago. Plan: labs Medications Administered Discontinued Medications Generic Name Dose Route Start Last Admin Trade Name Freq PRN Reason Stop Dose Admin Famotidine 20 mg 08/15/25 17:58 08/15/25 18:23 Famotidine/Pf 20 Mg/2 Ml Vial IVPUSH 08/15/25 17:59 20 mg ONCE ONE Administration Lactated Ringer's 1,000 mls @ 999 mls/hr 08/15/25 18:00 08/15/25 18:13 Lr IV 08/15/25 19:00 999 mls/hr .Q1H1M JUAN PABLO Administration Ondansetron HCl 4 mg 08/15/25 17:58 08/15/25 18:23 Ondansetron Hcl 4 Mg/2 Ml Vial IVPUSH 08/15/25 17:59 4 mg ONCE ONE Administration Pantoprazole Sodium 40 mg 08/15/25 17:58 08/15/25 18:23 Pantoprazole Sodium 40 Mg/10 Ml Vial IVPUSH 08/15/25 17:59 40 mg ONCE ONE Administration Medical Decision Making Medical Decision Making [facility] Narrative: 25-year-old female with a past medical history significant for morbid obesity status post sleeve gastrectomy 1 month ago presenting for evaluation of weakness and nausea. She was not had any vomiting. She denies any abdominal pain is nontender on exam. She is no leukocytosis or fevers to suggest infectious process. Her labs are significant for a slight elevation of AST and ALT of unclear significance. Lipase within normal limits, this is less likely pancreatitis. Her hemoglobin hematocrit GERD within normal limits but slightly above her baseline which could be due to some degree of dehydration and hemoconcentration. There was no renal disease, electrolytes are within normal limits. We will treat with IV fluids, antiemetic, ppi and famotidine. We will defer imaging at this time as the patient appears well, has no fever, leukocytosis in his no abdominal pain or tenderness on exam. Differential Diagnosis Differential Diagnoses: The differential diagnosis associated with the presentation includes Weakness Dehydration Malabsorption Bowel obstruction Ileus Gastroenteritis Lab Data [facility] Lab Attestation statement: I reviewed the patient's lab results. As above 08/15/25 15:10 08/15/25 15:10 Labs: Lab Results 08/15/25 Range/Units 15:10 WBC 6.3 (4.8-10.8) X10*3/uL RBC 5.60 H (4.20-5.50) X10*6/uL Hgb 15.2 (12.0-16.0) g/dl Hct 46.2 (37.0-47.0) % MCV 82.5 (80.0-98.0) fL MCH 27.1 (27.0-33.0) pg MCHC 32.9 (31.0-35.0) g/dl RDW 15.8 (11.0-16.0) % Plt Count 246 (160-400) X10*3/uL MPV 10.3 (9.4-12.3) fL Immature Gran % (Auto) 0.3 (0.0-0.4) % Neut % (Auto) 69.9 (45-73) % Lymph % (Auto) 19.5 L (20-40) % Edmunds % (Auto) 8.8 (2-11) % Eos % (Auto) 1.0 (0-4) % Baso % (Auto) 0.5 (0-2) % Lymph # (Auto) 1.2 (1.2-4.9) X10*3/uL Edmunds # (Auto) 0.6 (0.1-1.2) X10*3/uL Eos # (Auto) 0.1 (0.0-0.4) X10*3/uL Baso # (Auto) 0.0 (0.0-0.2) X10*3/uL Abs Immat Gran (auto) 0.02 (0.00-0.03) X10*3/uL Absolute Neuts (auto) 4.4 (2.0-8.3) x10*3/uL Absolute Nucleated RBC 0.000 (0.0-0.012) X10*3/uL Nucleated RBC % (auto) 0.0 (0.0-0.2) /100WBC Sodium 138 (135-145) mmol/L Potassium 3.9 (3.3-5.1) mmol/L Chloride 97 (96-108) mmol/L Carbon Dioxide 25 (22-29) mmol/L Anion Gap 20 (12-20) BUN 8 L (9-16) mg/dL Creatinine 0.77 (0.5-1.4) mg/dL Estim Creat Clear Calc 151.2 Estimated GFR > 60 Random Glucose 89 (60-115) mg/dL Calcium 10.2 D (8.4-10.2) mg/dL Magnesium 2.2 (1.6-2.6) mg/dL Total Bilirubin 1.1 H (0.0-1.0) mg/dL AST 89 H (5-31) U/L ALT 109 H (0-31) U/L Alkaline Phosphatase 53 (39-117) U/L Total Protein 8.2 H (6.5-8.0) g/dL Albumin 4.6 (3.5-5.0) g/dL Lipase 21 (8-78) U/L Tests considered The following testing was considered but not selected: Consider CT scan of the abdomen pelvis but ultimately deferred due to low suspicion for infectious process an obstructive process. Discharge Plan Discharge Clinical Impression: Weakness Patient Disposition: Home, Self-Care Instructions: GERD (Gastroesophageal Reflux Disease) (ED) Additional Instructions: Your blood work was reassuring. Follow up with your bariatric team on Friday as planned. You may try the Zofran pills instead of the disintegrating tablets, but do not take them both Return for new or worsening symptoms Prescriptions: New ondansetron HCl 4 mg tablet 4 mg PO Q8H PRN (Reason: nausea and vomiting) Qty: 30 0RF No Action sertraline 50 mg tablet 50 mg PO DAILY Qty: 90 0RF lisinopril 5 mg tablet 5 mg PO DAILY Qty: 90 0RF gabapentin 100 mg capsule 300 mg PO BEDTIME MDD 300mg 60 Days Qty: 180 0RF sucralfate 100 mg/mL suspension 10 ml PO BID Qty: 600 2RF pantoprazole 40 mg tablet,delayed release (DR/EC) 40 mg PO DAILY Qty: 90 0RF ondansetron 4 mg tablet,disintegrating 4 mg PO Q12H Qty: 20 0RF Rx Instructions: Only take one every 12 hours as needed if you have nausea Mirena 21 mcg/24hr (up to 8 yrs) 52 mg intrauterine device intrauterine albuterol sulfate 90 mcg/actuation HFA aerosol inhaler 1 inh inhalation QID PRN (Reason: shortness of breath or wheezing) Qty: 8.5 1RF Print Language: Grenadian
[2025-08-15 15:20] LABS: MANUAL DIFF FLAG NO
[2025-08-15 15:21] LABS: Hematocrit 46.2 % (37.0-47.0); Hemoglobin 15.2 g/dl (12.0-16.0); Imm Gran Abs Auto 0.02 X10*3/uL (0.00-0.03); Imm Gran Pct Auto 0.3 % (0.0-0.4); Lymphocytes Absolute Auto 1.2 X10*3/uL (1.2-4.9); Mean Corpuscular HGB Conc 32.9 g/dl (31.0-35.0); Mean Corpuscular Hemoglobin 27.1 pg (27.0-33.0); Mean Corpuscular Volume 82.5 fL (80.0-98.0); NRBC Abs Auto 0.000 X10*3/uL (0.0-0.012); NRBC Pct Auto 0.0 /100WBC (0.0-0.2); Platelet Count 246 X10*3/uL (160-400); Red Blood Count 5.60 X10*6/uL (4.20-5.50); White Blood Count 6.3 X10*3/uL (4.8-10.8)
[2025-08-15 15:43] LABS: Alanine Aminotransferase 109 U/L (0-31); Albumin Level 4.6 g/dL (3.5-5.0); Alkaline Phosphatase 53 U/L (39-117); Anion Gap 20 (12-20); Aspartate Amino Transferase 89 U/L (5-31); Blood Urea Nitrogen 8 mg/dL (9-16); Calcium 10.2 mg/dL (8.4-10.2); Carbon Dioxide 25 mmol/L (22-29); Chloride 97 mmol/L (96-108); Creatinine Clr Calc Pharmacy 151.2; Estimated Glomerular Filt Rate > 60; Lipase 21 U/L (8-78); Magnesium 2.2 mg/dL (1.6-2.6); Potassium 3.9 mmol/L (3.3-5.1); Sodium 138 mmol/L (135-145); Total Protein 8.2 g/dL (6.5-8.0)
[2025-08-15 17:52] VITALS: BP 127/71; PULSE 85; RESP 16; TEMP 36.7; O2SAT 100
[2025-08-15] MEDS: Lactated Ringers 1,000 ML 999 ML IV (18:13)
--- OUTSIDE RECORDS SUMMARY | 2025-08-15 18:25 | XMS_ITS | Clinical Summary ---
Author Organization [facility] Address [address] [place] [address] Phone Care Team Providers Care Planning Supervisor Name Role Phone Darin Restrepo MD Primary [...] EST) SODIUM 140 133 - 146 mmol/L [facility] CHLORIDE 103 96 - 108 mmol/L [facility] POTASSIUM 4.6 3.3 - 5.1 mmol/L [facility] CO2 27 21 - 35 mmol/L [facility] BUN 15 6 - 19 mg/dL [facility] CREATININE 1.00 0.5 - 1.5 mg/dL [facility] GLUCOSE 100(H) 70 - 99 mg/dL [facility] CALCIUM 9.2 8.4 - 10.3 mg/dL [facility] EGFR 81 >59 mL/min/1.7 3m2 [facility] Comment:Estimated glomerular filtration rate calculated using the CKD-EPI refit equation. ANION GAP 15 10 - 20 mmol/L [facility] Blood 01/22/2024 12:3 5 AM EST 01/22/2024 12:40 AM EST us Grayson Ivan DO LAB BLOOD ORDERABLES F inal Result [facility] [address] [place] [address] from Last 3 Months or Most Recently Relevant to Health Maintenance Insurance [facility] MEDICARE REPLACEMENT [place] [id number] MEDICARE REPLACEMENT [facility] [address] [address] [facility] MEDICARE REPLACEMENT CARE MEDICARE REPLACEMENT CARE MEDICARE REPLACEMENT [place] [id number] [facility] properties and services [address] [address] [facility] MEDICARE REPLACEMENT [place] [id number] [facility] Care Teams Planning Supervisor Relationship Specialty Start Date End Date Darin Restrepo MD [address] [place] [address] PCP - General Internal Medicine 11/30/21 Additional Source Comments The information contained in this document represents components of the legal health record. It is not the complete legal health record.[facility]
--- OUTSIDE RECORDS SUMMARY | 2025-08-15 18:25 | XMS_ITS | Clinical Summary ---
Author Organization [address] Address [address] [place] [phone] Phone Care Team Providers Care Installation Service Representative Name Role Phone Unavailable Primary Care Provider Unavailabl e Allergies Active Allergy Reactions Criticality Noted Date Comments Cephalexin 10/23/2020 Burning sensation all over body. Doxycycline Hyclate 10/23/2020 hives Penaten 02/20/2023 Penicillin G Hives High 02/17/2023 Pt stated had bad reaction. She had hives all over the body. Sulfa (Sulfonamide Antibiotics) 03/06/2021 Medications cloNIDine (IPGUCMKN-GWW-4 ) 0.3 mg/[address] 1 Patch onto the skin once a week. 4 Active emollient comb no.2, bulk, ointment Apply 0.5 g topically 2 times daily. 5% gabapentin ointment Sig: Apply 0.5 g daily to affected area Patient phone number: [phone] (home) 3 Active cholecalciferol (VITAMIN D-3) 1,250 [...] processing disorder 08/27/2024 Overview (08/27/2024): according to [facility] hearing report dated 01-15-13 Report from 02-15-13- [...] obesity with BMI of 6 0.0-69.9, adult ([facility] V24, [facility] V28) 08/27/2024 Chlamydia 11/14/2023 PCOS [...] Recommended ACT -14 = 20 05-04-15: [facility] exacerbation as of 08-08- no prob since 03-27-16: [facility] 5 d pred 40mg As of [...] eval confirms dx of ADHD- accommodations in Sing[employer], [employer], Science and technology- full inclusion 03-07-15: normal [...] (Infanrix) 6wks to less than 7yo ,07/17/2000,1999,09/04,1999 NArX-ZPU-UAJ (Pentacel) 2mo to less than 5yo 06/18/2000,1999,1999,06/01 H1N1 Inj Preservative Free 12/22/2009 HPV, Quadrivalent 04/30/2013,07/14/2012,04/14/20 12 Hepatitis B (Ddmasse-O-Lwqjw , Recombivax HB-Adult) 19yo and older 07/12/2020,02/09/2020,01/05/2020 [...] 04/27/2003,06/12/2000 Meningococcal MCV4P 08/08/2015,04/14/2012 PPD Test 11/10/2019 [employer] SARS-CoV-2 COVID-19, mRNA, LNP-S, preservative free 09/04/2021 [...] TUBES OTHER SURGICAL HISTORY age 1.5yr PROCEDURE: AL BRONCHOSCOPY W/TRANSBRONCHIAL LUNG BX 1 LOBE EYE SURGERY PROCEDURE: HISTORICAL EYE SURGERY Medical History Medical History Date Comments Essential hypertension 08/31/2019 DX:Essent ial hypertension Migraine with aura DX:Migraine w ith aura; COMMENT: Naprosyn 04-14-12: worsening- started amitriptyline 25 mg hs Saw neurologist and is on topamax- now 100 mg 08-08-15: ped neuro- verapamil 40 mg bid in addition to [id number] mg hs; fioricet PRN, riboflavin, magnesium 10-10-15: [...] 2:00 PM EST Office Visit Nephrology - [facility] [address] [place] [address] Christopher Pollard MD [address] [place] [address] Health Maintenance Due Date Last [...] * Annual BMP Blood Test (01/22/2024) Pathologist [facility] Annual BMP Blood Test abstracted [facility] Provider MD HEALTH MAINTENANCE Final Result * Gonorrhea/Chlamydia Screening (11/13/2023) Pathologist [facility] Gonorrhea/Chla mydia Screening abstracted [facility] Provider MD HEALTH MAINTENANCE Final Result * Depression Screening (10/06/2023) Pathologist [facility] Depression Screening abstracted [facility] Provider MD HEALTH MAINTENANCE Final Result * Lipid panel (12/06/2022) [facility] LDL/HDL Ratio 2 0 - 4 Triglycerides 71 0 - 150 mg/dL Cholesterol 117 0 - 200 mg/dL HDL 48 >=40 mg/dL LDL Cholesterol 55 0 - 100 mg/dL Blood Venous blood specimen / Unknown us Historical Provider LAB BLOOD ORDERABLES Praveena l Result * Pap smear (09/05/2022) 09/05/2022 Narrative HISTORICAL TESTING LAB RESULTING AGENCY - 09/12/2022 7:30 AM EDT [id number] THINPREP PAP, IMAGED: NEGATIVE FOR SQUAMOUS INTRAEPITHELIAL [...]
--- OUTSIDE RECORDS SUMMARY | 2025-08-15 18:25 | XMS_ITS | Encounter Summary ---
Author Organization [facility] Address [address] [place] [address] Phone Care Team Providers Care Life Insurance Sales Agent Name Role Phone Darin Restrepo MD Primary Care Provider + Encounter Details Date Type Department Care Team (Late st Contact Info) Description 01/22/2024 Procedure Pass [facility], Ct Scan - [facility] [address] [place] [address] Social History Tobacco Use Types Packs/Day Years [...] documented as of this encounter Care Teams Life Insurance Sales Agent Relationship Specialty Start Date End Date Darin Restrepo MD [address] [place] [id number] PCP - General Internal Medicine 11/30/21 documented as of this encounter Additional Source Comments The information contained in this document represents components of the legal health record. It is not the complete legal health record.[facility]
--- OUTSIDE RECORDS SUMMARY | 2025-08-15 18:25 | XMS_ITS | Patient Health Record ---
Author Organization [facility] Address [address] [place] [address] Support Name Relationship Address Phone Nena Zafar Guarantor Unknown [phone] Allergies Allergen (clinical drug ingredient) Drug/Non Drug [...] Status Risk Notes Problem Morbid obesity (disorder) (866176034) Morbid (severe) obesity due to excess calories (E66.01) Active confirmed Problem Generalized anxiety disorder (86499513) Generalized anxiety disorder (F41.1) Active confirmed Problem Migraine with aura (1913891) Migraine with aura, not intractable, without status migrainosus (G43.109) Active confirmed Problem Obstructive sleep apnea syndrome (disorder) (29244974) Obstructive sleep apnea (adult) (pediatric) (G47.33) Active confirmed Problem Essential hypertension (90917608) Essential (primary) hypertension (I10) Active confirmed Problem Mild intermittent asthma (770361692) Mild intermittent asthma, uncomplicated (J45.20) Active confirmed Problem Gastro-esophageal reflux disease without esophagitis (981415781) Gastro-esophageal reflux disease without esophagitis (K21.9) Active confirmed Problem Attention deficit hyperactivity disorder, predominantly inattentive type (disorder) (95951832) Attention and concentration deficit (R41.840) Active confirmed Plan Of Treatment No Information Insurance Providers Payer Name Payer Address Payer Phone Subscriber Number Group Number Insured Name Patient Relationship to Insured Coverage Start Date Coverage End Date [employer] [address] [place] [address] [id number] Nena Ballard Self - patient is the insured Medical (General) History Medical History History ICD Code Generalized anxiety disorder/major depre ssive disorder, sees psychiatry ADD GERD Mild intermittent asthma Migraine headaches with aura Hypertension AIDAN cannot tolerate CPAP Surgical History Surgery Date(Month/Year) strabismus surgery
--- OUTSIDE RECORDS SUMMARY | 2025-08-15 18:25 | XMS_ITS | Encounter Summary ---
Author Organization [facility] Address [address] [place] [address] Phone Care Team Providers Care Pet Store Merchandiser Name Role Phone Darin Restrepo MD Primary Care Provider + Encounter Details Date Type Department Care Team (Late st Contact Info) Description 10/10/2022 Procedure Pass [facility], Ct Scan - [address] [address] Social History Tobacco Use Types Packs/Day Years [...] documented as of this encounter Care Teams Pet Store Merchandiser Relationship Specialty Start Date End Date Darin Restrepo MD [address] [place] [phone] PCP - General Internal Medicine 11/30/21 documented as of this encounter Additional Source Comments The information contained in this document represents components of the legal health record. It is not the complete legal health record.[facility]
--- OUTSIDE RECORDS SUMMARY | 2025-08-15 18:25 | XMS_ITS | Encounter Summary ---
Author Organization [facility] Address [address] [place] [address] Phone Care Team Providers Care Production Proofreader Name Role Phone Arpita White MD Primary Care Provider Martina Hunter MD Primary Care Provider [phone] Darin Restrepo MD Primary Care Provider + Encounter Details Date Type Department Care Team (Latest Contact Info) Description 10/24/2017 Transcribe Orders [facility] [address] [place] [address] Cameron Jones MD [address] [place] [address] Hirsutism (Primary Dx); Oligomenorrhea, unspecified [...] (10/24/2017 8:29 AM EST) HDL 51 mg/dL [facility] Comment: Interpretation: Risk Level Females Decreased >55mg/dL Average 50-55 mg/dL Increased <50 mg/dL CHOLESTEROL 141 0 - 240 mg/dL [facility] Comment: Pediatric Reference Ranges for 2 to 18 years Acceptable: Less than 170 mg/dL Borderline: 170 - 199 mg/dL High: Greater than or equal to 200 mg/dL TRIGLYCERIDES 73 30 - 160 mg/dL [facility] LDL 75 50 - 129 mg/dL [facility] Comment: LDL levels in terms of risk for coronary heart disease: <100 mg/dL: Optimal 100-129 mg/dL: Near or above optimal 130-159 mg/dL: Borderline high 160-189 mg/dL: High >190 mg/dL: Very High CARDIAC RISK RATIO 2.8(L) 3.3 - 4.4 C [facility] Blood 10/24/2017 8:29 AM EST 10/24/2017 8:33 AM EST Cameron Jones MD LAB BLOOD ORDERABLES Fi nal Result Performing Organization Address City/State/[facility] Co de Phone Number [facility] [address] [place] [address] documented in this encounter Visit Diagnoses Diagnosis Hirsutism- Primary Oligomenorrhea, unspecified type documented in this encounter Additional Health Concerns Infection Onset Date Last Indicated Resolved Time CoV-Risk 02/16/2023 02/16/2023 02/27/2023 1:22 AM EDT CoV-Risk 01/21/2024 01/21/2024 02/01/2024 1:22 AM EST documented as of this encounter Care Teams Production Proofreader Relationship Specialty Start Date End Date Arpita White MD [address] [place] [phone] PCP - General Pediatrics 10/24/17 11/22/19 Martina Torres MD [address] [place] [phone] PCP - General Internal Medicine 11/23/19 11/29/21 Darin Restrepo MD [address] [place] [phone] PCP - General Internal Medicine 11/30/21 documented as of this encounter Additional Source Comments The information contained in this document represents components of the legal health record. It is not the complete legal health record.[facility]
--- OUTSIDE RECORDS SUMMARY | 2025-08-15 18:25 | XMS_ITS | Encounter Summary ---
Author Organization [facility] Address [address] [place] [address] Phone Care Team Providers Care Cake Washer Name Role Phone Darin Restrepo MD Primary Care Provider + Encounter Details Date Type Department Care Team (Late st Contact Info) Description 01/22/2024 Procedure Pass [facility], Ct Scan - [facility] [address] [place] [address] Social History Tobacco Use Types Packs/Day Years [...] documented as of this encounter Care Teams Cake Washer Relationship Specialty Start Date End Date Darin Restrepo MD [address] [place] [phone] PCP - General Internal Medicine 11/30/21 documented as of this encounter Additional Source Comments The information contained in this document represents components of the legal health record. It is not the complete legal health record.[facility]
[2025-08-15 19:53] VITALS: BP 134/71; PULSE 67; RESP 18; TEMP 36.7; O2SAT 100
[2025-08-15 19:55] VITALS: BP 134/71; PULSE 67; RESP 18; TEMP 36.7; O2SAT 100
== END 2025-08-15 19:56 | disposition home or self-care (01) ==
PROVIDERS: Physician Assistant Medical; Emergency Provider Emergency Medicine
DX: R53.1 Weakness (principal); R11.2 Nausea with vomiting, unspecified; E86.0 Dehydration; Z98.84 Bariatric surgery status; Z79.899 Other long term (current) drug therapy
CPT/HCPCS: 36415; 80053; 83690; 83735; 85025; 96361; 96374; 96375; 99284; J1308; J2405; J2470; J7120

== ENCOUNTER 2025-08-19 11:29 | Outpatient (AMB) | payer MEDICARE, SELFPAY ==
--- NOTE | 2025-08-19 11:27 | MHC.OFFVISWM ---
VS Expanded 08/19/25 11:35 Height 5 ft 6 in Weight 275 lb BMI 44.4 Intake Visit Reasons: TV PO LSG 07/14/25 Allergies cephalexin (From Keflex) Allergy (Intermediate, Verified 08/15/25 14:24) Redness of Skin doxycycline Allergy (Intermediate, Verified 08/15/25 14:24) Hives Penicillins Allergy (Intermediate, Verified 08/15/25 14:24) Hives, burning sensation Sulfa (Sulfonamide Antibiotics) Allergy (Intermediate, Verified 08/15/25 14:24) Hives,palpatations Medication List - Last Reconciled 08/19/25 by CHERYL Pelaez albuterol sulfate 90 mcg/actuation 1 inh inhalation QID PRN gabapentin 300 mg (3 x 100 mg) PO BEDTIME 2 months MDD 300mg levonorgestrel (Mirena) intrauterine lisinopril 5 mg PO DAILY Held on 07/15/25. Instructions: Resume on 07/15/25. Resume only according to parameters given by Dr. Rossi ondansetron 4 mg PO Q12H ondansetron HCl 4 mg PO Q8H PRN pantoprazole 40 mg PO DAILY sertraline 50 mg PO DAILY sucralfate 10 mL PO BID HPI Comments Details: This?is a?25?yo F who is s/p LSG 07/14/2025. Presents for 5w post op visit. Weight at last visit on 07/21/2025 was 298.2 pounds; weight today is 275 pounds, representing a 23.2 pound weight loss with a BMI today of 44.4.? She went to ED on 08/15 for dehydration and received IV fluids. She continues to take pantoprazole and carafate. Pt is frustrated by her reflux and becomes tearful during our phone call. She claims she is doing everything that she is instructed to do to try to follow the meal plan, including using syringe to take in fluids and not drinking too quickly. She thinks the shakes are the worst for reflux. Tolerates water okay. Present meal plan includes: 3 shakes per day- Premier 2 full and one with mix 4oz/4oz 1 Fitcrunch protein bar 40-60oz water- does not cause reflux PFSH Medical History Annual physical exam Well woman exam with routine gynecological exam Morbid obesity with BMI of 60.0-69.9, adult Screening for cervical cancer Sleep apnea treated with nocturnal bilevel positive airway pressure (BPAP) Sleep apnea PCOS (polycystic ovarian syndrome) Migraines ADHD (attention deficit hyperactivity disorder) Depression GERD (gastroesophageal reflux disease) Morbid obesity Asthma High blood pressure Surgical History S/P gastric sleeve procedure S/P tonsillectomy History of eye surgery Family History Maternal Grandmother Breast cancer Mother Diabetes Other HTN (hypertension) Social History Household Members: None Housing: Apartment Are you a primary child care assistant to a significant other at home: No Do you presently have visiting nurse or other home services: No Alcohol intake: current Alcohol intake frequency: holidays/special occasions only Patient Tobacco Use Status: Never used Tobacco e-Cigarette/Vaping Use: Never Used Second Hand Smoke Exposure: No service: No Current occupational status: employed Cognitive needs: No Hearing needs: No Vision needs: Yes (Glasses) Female Reproductive History Menstrual Age of Menarche: 11 Telehealth Telehealth Telehealth Platform: Telephone Location of provider rendering services: other Location of patient: address on file Patient Identification confirmed using: Name, : Yes Telehealth method: voice only Patient verbally consented to treatment: Yes Patient verbally consented to billing insurance company: Yes Patient informed of any privacy concerns related to visit: Yes Minutes spent on Phone/Video with Pt.: 16 Assessment & Plan Assessment & Plan (1) Morbid obesity: Code(s): E66.01 - Morbid (severe) obesity due to excess calories Category: Medical (2) S/P laparoscopic sleeve gastrectomy: Code(s): Z98.84 - Bariatric surgery status Category: Surgical Plan New meal plan to which pt was agreeable: 8-11am Premier shake 12-2pm Fitcrunch bar 3-5pm Fitcrunch bar 6pm 1 scrambled egg or 3 Tbsp GY/CC 7-9pm Fitcrunch bar Discussed appropriate eating/drinking behaviors which pt reports she is already practicing. Pt will text me Friday with an update. Also informed pt that we can coordinate IV fluid infusion instead of ER if needed. RTC for 15 min phone visit in 1 mo.
[2025-08-19 11:35] VITALS: BMI 44.4
--- OUTSIDE RECORDS SUMMARY | 2025-08-19 13:23 | XMS_ITS | Encounter Summary ---
Author Organization [facility] Address [address] [place] [address] Phone Care Team Providers Care Snowmobile Mechanic Name Role Phone Arpita White MD Primary Care Provider Martina Hunter MD Primary Care Provider [phone] Darin Restrepo MD Primary Care Provider + Encounter Details Date Type Department Care Team (Latest Contact Info) Description 10/24/2017 Transcribe Orders [facility] [address] [place] [address] Cameron Jones MD [address] [place] [address] Hirsutism (Primary Dx); Oligomenorrhea, unspecified [...] 8:29 AM EST) HDL 51 mg/dL [facility] Comment: Interpretation: Risk Level Females Decreased >55mg/dL Average 50-55 mg/dL Increased <50 mg/dL CHOLESTEROL 141 0 - 240 mg/dL [facility] Comment: Pediatric Reference Ranges for 2 to 18 years Acceptable: Less than 170 mg/dL Borderline: 170 - 199 mg/dL High: Greater than or equal to 200 mg/dL TRIGLYCERIDES 73 30 - 160 mg/dL [facility] LDL 75 50 - 129 mg/dL [facility] Comment: LDL levels in terms of risk for coronary heart disease: <100 mg/dL: Optimal 100-129 mg/dL: Near or above optimal 130-159 mg/dL: Borderline high 160-189 mg/dL: High >190 mg/dL: Very High CARDIAC RISK RATIO 2.8(L) 3.3 - 4.4 [facility] Blood 10/24/2017 8:29 AM EST 10/24/2017 8:33 AM EST Cameron Jones MD LAB BLOOD ORDERABLES Fi nal Result Performing Organization Address City/State/[facility] Co de Phone Number [facility] [address] [place] [address] documented in this encounter Visit Diagnoses Diagnosis Hirsutism- Primary Oligomenorrhea, unspecified type documented in this encounter Additional Health Concerns Infection Onset Date Last Indicated Resolved Time CoV-Risk 02/16/2023 02/16/2023 02/27/2023 1:22 AM EDT CoV-Risk 01/21/2024 01/21/2024 02/01/2024 1:22 AM EST documented as of this encounter Care Teams Snowmobile Mechanic Relationship Specialty Start Date End Date Arpita White MD [address] [place] [address] PCP - General Pediatrics 10/24/17 11/22/19 Martina Torres MD [address] [place] [address] PCP - General Internal Medicine 11/23/19 11/29/21 Darin Restrepo MD [address] [place] [address] PCP - General Internal Medicine 11/30/21 documented as of this encounter Additional Source Comments The information contained in this document represents components of the legal health record. It is not the complete legal health record.[facility]
--- OUTSIDE RECORDS SUMMARY | 2025-08-19 13:23 | XMS_ITS | Clinical Summary ---
Author Organization [address] Address [address] [place] [phone] Phone Care Team Providers Care System Controller Name Role Phone Unavailable Primary Care Provider Unavailabl e Allergies Active Allergy Reactions Criticality Noted Date Comments Cephalexin 10/23/2020 Burning sensation all over body. Doxycycline Hyclate 10/23/2020 hives Penaten 02/20/2023 Penicillin G Hives High 02/17/2023 Pt stated had bad reaction. She had hives all over the body. Sulfa (Sulfonamide Antibiotics) 03/06/2021 Medications cloNIDine (UXJZEMJM-GKQ-3 ) 0.3 mg/[address] 1 Patch onto the skin once a week. 4 Active emollient comb no.2, bulk, ointment Apply 0.5 g topically 2 times daily. 5% gabapentin ointment Sig: Apply 0.5 g daily to affected area Patient phone number: [phone] (home) 3 Active cholecalciferol (VITAMIN D-3) 1,250 [...] processing disorder 08/27/2024 Overview (08/27/2024): according to [facility] hearing report dated 01-15-13 Report [...] obesity with BMI of 6 0.0-69.9, adult ([facility] V24, [facility] V28) 08/27/2024 Chlamydia 11/14/2023 PCOS (polycystic [...] = 20 05-04-15: [facility] - asthma exacerbation as of 08-08- no prob since 03-27-16: [facility]- 5 d pred 40mg As [...] eval confirms dx of ADHD- accommodations in Short Fuze, Pocket Change Card, Science and technology- full inclusion 03-07-15: normal [...] (Infanrix) 6wks to less than 7yo ,07/17/2000,1999,09/04,1999 HLeB-YML-HCU (Pentacel) 2mo to less than 5yo 06/18/2000,1999,1999,06/01 H1N1 Inj Preservative Free 12/22/2009 HPV, Quadrivalent 04/30/2013,07/14/2012,04/14/20 12 Hepatitis B (Frqqmlw-V-Cqwrb , Recombivax HB-Adult) 19yo and older 07/12/2020,02/09/2020,01/05/2020 [...] 04/27/2003,06/12/2000 Meningococcal MCV4P 08/08/2015,04/14/2012 PPD Test 11/10/2019 [facility] SARS-CoV-2 COVID-19, mRNA, LNP-S, preservative free 09/04/2021 [...] verapamil 40 mg bid in addition to tysrqub808 mg hs; fioricet PRN, riboflavin, magnesium 10-10-15: [...] 2:00 PM EST Office Visit Nephrology - [place] [address] [place] [address] Christopher Pollard MD [address] [place] [address] Health Maintenance Due Date Last [...] Annual BMP Blood Test (01/22/2024) Pathologist [facility] Annual BMP Blood Test abstracted [facility] Provider MD HEALTH MAINTENANCE Final Result * Gonorrhea/Chlamydia Screening (11/13/2023) Pathologist [facility] Gonorrhea/Chla mydia Screening abstracted [facility] Provider MD HEALTH MAINTENANCE Final Result * Depression Screening (10/06/2023) Pathologist [facility] Depression Screening abstracted [facility] Provider MD HEALTH MAINTENANCE Final Result * Lipid panel (12/06/2022) [facility] LDL/HDL Ratio 2 0 - 4 Triglycerides 71 0 - 150 mg/dL Cholesterol 117 0 - 200 mg/dL HDL 48 >=40 mg/dL LDL Cholesterol 55 0 - 100 mg/dL Blood Venous blood specimen / Unknown us Historical Provider LAB BLOOD ORDERABLES Praveena l Result * Pap smear (09/05/2022) 09/05/2022 Narrative HISTORICAL TESTING LAB RESULTING AGENCY - 09/12/2022 7:30 AM EDT [id number] THINPREP PAP, IMAGED: NEGATIVE FOR SQUAMOUS INTRAEPITHELIAL [...]
--- OUTSIDE RECORDS SUMMARY | 2025-08-19 13:23 | XMS_ITS | Encounter Summary ---
Author Organization [facility] Address [address] [place] [address] Phone Care Team Providers Care Controller Repairer And Tester Name Role Phone Darin Restrepo MD Primary Care Provider + Encounter Details Date Type Department Care Team (Late st Contact Info) Description 01/22/2024 Procedure Pass [facility], Ct Scan - [facility] [address] [place] [address] Social History Tobacco Use Types Packs/Day Years [...] documented as of this encounter Care Teams Controller Repairer And Tester Relationship Specialty Start Date End Date Darin Restrepo MD [address] [place] [phone] PCP - General Internal Medicine 11/30/21 documented as of this encounter Additional Source Comments The information contained in this document represents components of the legal health record. It is not the complete legal health record.[facility]
--- OUTSIDE RECORDS SUMMARY | 2025-08-19 13:23 | XMS_ITS | Encounter Summary ---
Author Organization [facility] Address [address] [place] [address] Phone Care Team Providers Care Fraud Manager Name Role Phone Darin Restrepo MD Primary Care Provider + Encounter Details Date Type Department Care Team (Late st Contact Info) Description 10/10/2022 Procedure Pass [facility], Ct Scan - [address] [address] Social History Tobacco Use Types Packs/Day Years [...] documented as of this encounter Care Teams Fraud Manager Relationship Specialty Start Date End Date Darin Restrepo MD [address] [place] [address] PCP - General Internal Medicine 11/30/21 documented as of this encounter Additional Source Comments The information contained in this document represents components of the legal health record. It is not the complete legal health record.[facility]
--- OUTSIDE RECORDS SUMMARY | 2025-08-19 13:23 | XMS_ITS | Encounter Summary ---
Author Organization [facility] Address [address] [place] [address] Phone Care Team Providers Care Machine Grinder Name Role Phone Darin Restrepo MD Primary Care Provider + Encounter Details Date Type Department Care Team (Late st Contact Info) Description 01/22/2024 Procedure Pass [facility], Ct Scan - [facility] [address] [place] [address] Social History Tobacco Use Types Packs/Day Years [...] documented as of this encounter Care Teams Machine Grinder Relationship Specialty Start Date End Date Darin Restrepo MD [address] [place] [address] PCP - General Internal Medicine 11/30/21 documented as of this encounter Additional Source Comments The information contained in this document represents components of the legal health record. It is not the complete legal health record.[facility]
--- OUTSIDE RECORDS SUMMARY | 2025-08-19 13:23 | XMS_ITS | Patient Health Record ---
Author Organization [facility] Address [address] [place] [address] Support Name Relationship Address Phone Nena Zafar Guarantor Unknown [phone] Allergies Allergen (clinical drug ingredient) Drug/Non Drug [...] Status Risk Notes Problem Morbid obesity (disorder) (178290316) Morbid (severe) obesity due to excess calories (E66.01) Active confirmed Problem Generalized anxiety disorder (16962612) Generalized anxiety disorder (F41.1) Active confirmed Problem Migraine with aura (6081175) Migraine with aura, not intractable, without status migrainosus (G43.109) Active confirmed Problem Obstructive sleep apnea syndrome (disorder) (06480594) Obstructive sleep apnea (adult) (pediatric) (G47.33) Active confirmed Problem Essential hypertension (83987729) Essential (primary) hypertension (I10) Active confirmed Problem Mild intermittent asthma (164340082) Mild intermittent asthma, uncomplicated (J45.20) Active confirmed Problem Gastro-esophageal reflux disease without esophagitis (787185533) Gastro-esophageal reflux disease without esophagitis (K21.9) Active confirmed Problem Attention deficit hyperactivity disorder, predominantly inattentive type (disorder) (39500559) Attention and concentration deficit (R41.840) Active confirmed Plan Of Treatment No Information Insurance Providers Payer Name Payer Address Payer Phone Subscriber Number Group Number Insured Name Patient Relationship to Insured Coverage Start Date Coverage End Date [facility] [address] [place] [address] [id number] Nena Ballard Self - patient is the insured Medical (General) History Medical History History ICD Code Generalized anxiety disorder/major depre ssive disorder, sees psychiatry ADD GERD Mild intermittent asthma Migraine headaches with aura Hypertension AIDAN cannot tolerate CPAP Surgical History Surgery Date(Month/Year) strabismus surgery
--- OUTSIDE RECORDS SUMMARY | 2025-08-19 13:23 | XMS_ITS | Clinical Summary ---
Author Organization [facility] Address [address] [place] [address] Phone Care Team Providers Care Transaction Manager Name Role Phone Darin Restrepo MD [...] EST) SODIUM 140 133 - 146 mmol/L [facility] CHLORIDE 103 96 - 108 mmol/L [facility] POTASSIUM 4.6 3.3 - 5.1 mmol/L [facility] CO2 27 21 - 35 mmol/L [facility] BUN 15 6 - 19 mg/dL [facility] CREATININE 1.00 0.5 - 1.5 mg/dL [facility] GLUCOSE 100(H) 70 - 99 mg/dL [facility] CALCIUM 9.2 8.4 - 10.3 mg/dL [facility] EGFR 81 >59 mL/min/1.7 3m2 [facility] Comment:Estimated glomerular filtration rate calculated using the CKD-EPI refit equation. ANION GAP 15 10 - 20 mmol/L [facility] Blood 01/22/2024 12:3 5 AM EST 01/22/2024 12:40 AM EST us Grayson Ivan DO LAB BLOOD ORDERABLES F inal Result [facility] [address] [place] [address] from Last 3 Months or Most Recently Relevant to Health Maintenance Insurance [facility] MEDICARE REPLACEMENT [place] [id number] [facility] [address] [address] [facility] MEDICARE REPLACEMENT CARE MEDICARE REPLACEMENT CARE MEDICARE REPLACEMENT [place] [id number] [facility] [address] [address] [facility] MEDICARE REPLACEMENT [place] [id number] [facility] Care Teams Transaction Manager Relationship Specialty Start Date End Date Darin Restrepo MD [address] [place] [phone] PCP - General Internal Medicine 11/30/21 Additional Source Comments The information contained in this document represents components of the legal health record. It is not the complete legal health record.[facility]
== END 2025-08-19 12:42 | disposition home or self-care (01) ==
LOC: HO.HBS 11:29
PROVIDERS: Visit Provider Physician Assistant Surgical
DX: E66.01 Morbid (severe) obesity due to excess calories (principal); Z68.41 Body mass index [BMI] 40.0-44.9, adult; Z90.3 Acquired absence of stomach [part of]; Z98.84 Bariatric surgery status
CPT/HCPCS: 99024

== ENCOUNTER 2025-08-26 13:56 | Emergency (ER) | payer MEDICARE, SELFPAY ==
[2025-08-26] VITALS (7 sets, daily range): BP systolic 139–164; BP diastolic 88–109; PULSE 68–105; RESP 16–18; TEMP 36.4; O2SAT 99–100; BMI 48.2
--- NOTE | 2025-08-26 13:59 | ED_ITS ---
HPI - General Adult General Chief complaint: Abdominal Pain Stated complaint: Arm & Leg Numbness Sent By [facility] Time Seen by Provider: 08/26/25 17:39 Source: patient Mode of arrival: ambulatory Limitations: no limitations History of Present Illness ED Provider: SADIE WATERMAN PA-C HPI narrative: 25 year old female with PMH significant for migraine, AIDAN, asthma, GERD, morbid obesity s/p gastric sleeve on 07/14/2025 presents to the ED with persistent nausea and vomiting x6 weeks. Reports gastric sleeve at our facility went well w/o initial complication. Since then, she has not been tolerating the advances to diet. Reports she is unable to tolerate fluids or the foods on her bariatric meal plan. Reports she was very dehydrated last week. She was seen in the ED on 08/15/2025 for IVFs and antiemetics. She has since followed up outpatient with bariatric group. They gave her a vitamin patch . She has not taken her PO Zofran today, states she would not be able to keep it down. Believes her last BM was several days ago. Does not feel she can pass flatus currently. Denies abdominal pain or skin changes to surgical sites. She does not take an OCP or smoke tobacco. She does report recent immobility due to weakness. Denies calf redness or swelling. No SOB or CP. Related Data Home Medications ?Medication ?Instructions ?Recorded ?Confirmed levonorgestrel (Mirena) 1 device intrauterine ONCE 0 01/21/25 08/29/25 cholecalciferol (vitamin D3) 1,250 1,250 mcg PO MO 05/1808/29/25 mcg (50,000 unit) capsule famotidine 20 mg tablet 20 mg PO DAILY 08/29/25 10/05/18 ondansetron 4 mg disintegrating 4 mg PO Q12H PRN nause a and 08/29/25 08/29/25 tablet vomiting pantoprazole 40 mg tablet,delayed 40 mg PO DAILY@0600 08/29/25 08/29/25 release Previous Rx's ?Medication ?Instructions ?Recorded albuterol sulfate 90 mcg/actuation 1 inh inhalation QI D PRN shortness 01/21/25 aerosol inhaler of breath or wheezing #8.5 g anna lisinopril 5 mg tablet 5 mg PO DAILY #90 tabs 05/11 Held on 07/15/25. Instructions: Resume on 07/15/25. Resume only according to parameters given by Dr. Rossi sertraline 50 mg tablet 50 mg PO DAILY #90 tabs 04/24 07/18 sucralfate 100 mg/mL oral 10 ml PO BID #600 mL 5 suspension gabapentin 100 mg capsule 300 mg (3 x 100 mg) PO BEDTI ME RLS 08/11/25 2 months #180 caps Allergies Allergy/AdvReac Type Severity Reaction Status Date / Time cephalexin (From Keflex) Allergy Intermediate Redness of Verified 08/29/25 11:57 Skin doxycycline Allergy Intermediate Hives Verified 08/29/25 11:57 Penicillins Allergy Intermediate Hives, Verified 08/29/25 11:57 burning sensation Sulfa (Sulfonamide Allergy Intermediate Hives,palpa Verified 08/29/25 11:57 Antibiotics) tations Review of Systems 2 Review of Systems: Yes all other systems are reviewed and are negative PMFSH Past Medical History Attestation statement: The following information was validated with the patient. Source: old records reviewed and nursing notes reviewed Medical History Annual physical exam Well woman exam with routine gynecological exam Morbid obesity with BMI of 60.0-69.9, adult Screening for cervical cancer Sleep apnea treated with nocturnal bilevel positive airway pressure (BPAP) Sleep apnea PCOS (polycystic ovarian syndrome) Migraines ADHD (attention deficit hyperactivity disorder) Depression GERD (gastroesophageal reflux disease) Morbid obesity Asthma High blood pressure Surgical History S/P gastric sleeve procedure S/P tonsillectomy History of eye surgery Family History Family History Maternal Grandmother Breast cancer Mother Diabetes Other HTN (hypertension) Social History Social History Household Members: None Housing: Apartment Are you a primary hospice care transitions coordinator to a significant other at home: No Do you presently have visiting nurse or other home services: No Alcohol intake: current Alcohol intake frequency: holidays/special occasions only Patient Tobacco Use Status: Never used Tobacco Smoked in Last 30 Days: No e-Cigarette/Vaping Use: Never Used Second Hand Smoke Exposure: No Use of substances other than those prescribed or required for medical reasons: No Currently Displaying Signs/Symptoms of Drug Intoxication Withdrawal: No Advance Directives: No Advance Directives Information Provided: Yes Do you have a plan to hurt others: No Plan service: No Current occupational status: employed Cognitive needs: No Hearing needs: No Vision needs: Yes (Glasses) Physical Exam ED Vital Signs: Vital Signs - 24 hr 08/26/25 14:17 08/26/25 17:56 08/26/25 17:59 Temperature 97.6 F Pulse Rate 88 71 77 Respiratory Rate 16 18 Blood Pressure 164/101 H 163/98 H 151/103 H Pulse Oximetry 100 99 Oxygen Delivery Method Room Air Room Air 08/26/25 18:02 08/26/25 18:04 08/26/25 21:19 Temperature 97.6 F Pulse Rate 68 105 H 75 Respiratory Rate 16 Blood Pressure 164/109 H 151/102 H 139/88 Pulse Oximetry 100 Oxygen Delivery Method Room Air 08/26/25 21:25 Temperature 97.6 F Pulse Rate 75 Respiratory Rate 16 Blood Pressure 139/88 Pulse Oximetry 100 Oxygen Delivery Method Room Air BMI result Body Mass Index 48.2 hypertensive, vitals are otherwise wnl General: Well appearing, in no acute distress. Skin: Warm, dry, intact. No rashes or lesions. Head: Normocephalic, atraumatic. EENT: Hearing is intact b/l. Conjunctiva clear. Sclera is anicteric. PERRLA. EOM intact. Moist mucous membranes.? Neck: Supple without LAD Cardiac: Chest wall symmetric. RRR Lungs: Normal respiratory effort without accessory muscle use. CTA bilaterally Abdomen: Soft, non-tender, non-distended. No rebound tenderness or guarding. Positive BS x4. Back: No midline spinous or paraspinal tenderness. No step off deformity. Ext: Upper and lower extremities atraumatic, without tenderness, deformity, swelling or erythema Neuro: AOx3. Normal speech. Ambulating with steady gait Course Course Course Narrative: This is a rapid medical exam performed by Dylan Alegria NP: Additional HPI, ROS, PE not included below will be deferred to primary provider. Patient is a 25y/o F s/p gastric sleeve in June presenting with complaint of feeling drunk without drinking. Seen here last week for similar symptoms. Abdominal pain, nausea, vomiting, poor PO intake. Plan: labs, EKG Reevaluation(s) Reevaluation #1: CBC without leukocytosis or left shift. No anemia. H&H stable. Chemistry without acute electrolyte abnormality requiring intervention. No TOMI. Liver function at baseline. Troponin WNL. EKG showing normal sinus rhythm, rate of 84 beats per minute, QT 348, QTC 411. No acute ischemic changes or ST elevations. > Patient reports significant improvement in symptoms after receiving Benadryl/Reglan. She has also received a 1L of LR. She is tolerating p.o.. Her exam is benign, I do not feel as though she needs imaging of her abdomen at this time. Advised follow up with bariatric surgeon as scheduled. Patient has remained stable throughout ED visit today. Discussed worrisome signs and symptoms and when to return to the ED. All questions answered at this time. Patient is agreeable with disposition and stable for discharge. Medications Administered Discontinued Medications Generic Name Dose Route Start Last Admin Trade Name Marcosq PRN Reason Stop Dose Admin Diphenhydramine HCl 25 mg 08/26/25 19:32 08/26/25 19:41 Diphenhydramine Hcl 50 Mg/Ml Vial IVPUSH 08/26/25 19:33 25 mg ONCE ONE Administration Lactated Ringer's 1,000 mls @ 999 mls/hr 08/26/25 18:00 08/26/25 20:42 Lr IV 08/26/25 19:00 Infused .Q1H1M JUAN PABLO Infusion Metoclopramide HCl 10 mg 08/26/25 19:32 08/26/25 19:41 Metoclopramide Hcl 10 Mg/2 Ml Vial IVPUSH 08/26/25 19:33 10 mg ONCE ONE Administration Ondansetron HCl 4 mg 08/26/25 18:00 08/26/25 18:17 Ondansetron Hcl 4 Mg/2 Ml Vial IVPUSH 08/26/25 18:01 4 mg ONCE ONE Administration Medical Decision Making Medical Decision Making MDM Narrative: 25 year old female with PMH significant for migraine, AIDAN, asthma, GERD, morbid obesity s/p gastric sleeve on 07/14/2025 presents to the ED with persistent nausea and vomiting x6 weeks. hypertensive, vitals are otherwise wnl. she is generally well appearing and in NAD. abdomen is soft, ND/NT, no rebound or guarding. active bs. no cvat. Differential diagnosis includes anemia, electrolyte abnormality, dehydration, gastroparesis, gastroenteritis. unlikely post-op infection, PE. Plan for labs, ekg, re-evaluation. Differential Diagnosis Differential Diagnoses: The differential diagnosis associated with the presentation includes as above. Admission/Observation not indicated. Lab Data MDM Lab Attestation statement: I reviewed the patient's lab results. as above. 08/26/25 14:44 08/26/25 14:44 Labs: Lab Results 08/26/25 Range/Units 14:44 WBC 5.4 (4.8-10.8) X10*3/uL RBC 5.38 (4.20-5.50) X10*6/uL Hgb 15.0 (12.0-16.0) g/dl Hct 44.2 (37.0-47.0) % MCV 82.2 (80.0-98.0) fL MCH 27.9 (27.0-33.0) pg MCHC 33.9 (31.0-35.0) g/dl RDW 15.7 (11.0-16.0) % Plt Count 231 (160-400) X10*3/uL MPV 9.9 (9.4-12.3) fL Immature Gran % (Auto) 0.6 H (0.0-0.4) % Neut % (Auto) 68.7 (45-73) % Lymph % (Auto) 20.2 (20-40) % Dickenson % (Auto) 7.9 (2-11) % Eos % (Auto) 1.7 (0-4) % Baso % (Auto) 0.9 (0-2) % Lymph # (Auto) 1.1 L (1.2-4.9) X10*3/uL Dickenson # (Auto) 0.4 (0.1-1.2) X10*3/uL Eos # (Auto) 0.1 (0.0-0.4) X10*3/uL Baso # (Auto) 0.1 (0.0-0.2) X10*3/uL Abs Immat Gran (auto) 0.03 (0.00-0.03) X10*3/uL Absolute Neuts (auto) 3.7 (2.0-8.3) x10*3/uL Absolute Nucleated RBC 0.000 (0.0-0.012) X10*3/uL Nucleated RBC % (auto) 0.0 (0.0-0.2) /100WBC PT 13.8 H (10.9-12.4) SEC INR 1.2 H (0.9-1.1) D-Dimer High Sensitivty < 150 NG/ML Sodium 141 (135-145) mmol/L Potassium 3.8 (3.3-5.1) mmol/L Chloride 103 (96-108) mmol/L Carbon Dioxide 25 (22-29) mmol/L Anion Gap 17 (12-20) BUN 8 L (9-16) mg/dL Creatinine 0.67 (0.5-1.4) mg/dL Estim Creat Clear Calc 168.3 Estimated GFR > 60 Random Glucose 85 (60-115) mg/dL Calcium 10.1 (8.4-10.2) mg/dL Magnesium 2.2 (1.6-2.6) mg/dL Total Bilirubin 1.1 H (0.0-1.0) mg/dL AST 98 H (5-31) U/L ALT 104 H (0-31) U/L Alkaline Phosphatase 54 (39-117) U/L Troponin I High Sens 7.6 (<3.5-17.0) ng/L Total Protein 7.7 (6.5-8.0) g/dL Albumin 4.5 (3.5-5.0) g/dL Beta HCG, Quant < 2 mIU/mL Independent Historian Clinical information obtained from an independent historian. History obtained from or confirmed by: Parent External Record Review External record reviewed: Inpatient record, Office record, Outpatient record, Prior outpatient labs and Prior outpatient radiology Prescription Management I considered prescription management with: Other (reglan) Chronic Conditions Patient?s care impacted by: Other (morbid obesity, GERD) Social Determinants Patient?s care significantly limited by Social Determinants of Health including: Other Social Determinant of Health Critical Care Time Critical Care Time Critical Care Time: No Discharge Plan Discharge Clinical Impression: Nausea & vomiting Patient Disposition: Home, Self-Care Instructions: Acute Nausea and Vomiting (ED) Additional Instructions: Your blood work is reassuring. Follow up with your bariatric team outpatient. I am sending Reglan to your pharmacy for you to take as needed for nausea and vomiting. Please ensure you are staying hydrated. Stick to your bariatric diet. Return with any new or worsening symptoms. Prescriptions: No Action sertraline 50 mg tablet 50 mg PO DAILY Qty: 90 0RF lisinopril 5 mg tablet 5 mg PO DAILY Qty: 90 0RF famotidine 20 mg tablet 20 mg PO DAILY cholecalciferol (vitamin D3) 1,250 mcg (50,000 unit) capsule 1,250 mcg PO MO pantoprazole 40 mg tablet,delayed release (DR/EC) 40 mg PO DAILY@0600 ondansetron 4 mg tablet,disintegrating 4 mg PO Q12H PRN (Reason: nausea and vomiting) Rx Instructions: Only take one every 12 hours as needed if you have nausea gabapentin 100 mg capsule 300 mg PO BEDTIME MDD 300mg 60 Days Qty: 180 0RF sucralfate 100 mg/mL suspension 10 ml PO BID Qty: 600 2RF Mirena 21 mcg/24hr (up to 8 yrs) 52 mg intrauterine device 1 device intrauterine ONCE albuterol sulfate 90 mcg/actuation HFA aerosol inhaler 1 inh inhalation QID PRN (Reason: shortness of breath or wheezing) Qty: 8.5 1RF Referrals: [facility] [Provider Group, Bariatric Surgery] Iraida Woodruff PA-C [Primary Care Provider, Internal Medicine] Stand Alone Forms: Work/School Release Interventions: ED Discharge Assessment Last Done: 08/26/25 21:25 Discharge Date/Time: 08/26/25 21:25 Print Language: Burkinan
--- NOTE | 2025-08-26 14:17 | ECG_ITS ---
Test Reason : DIZZY Blood Pressure : */* mmHG Vent. Rate : 84 BPM Atrial Rate : 84 BPM P-R Int : 150 ms QRS Dur : 84 ms QT Int : 348 ms P-R-T Axes : 56 1 -1 degrees QTcB Int : 411 ms Normal sinus rhythm Normal ECG When compared with ECG of 29-Mar-2025 09:59, T wave amplitude has decreased in Anterior leads Referred By: Kim Alegria Electronically Signed By: SANTOSH BRADY
[2025-08-26 14:52] LABS: MANUAL DIFF FLAG NO
[2025-08-26 14:57] LABS: Hematocrit 44.2 % (37.0-47.0); Hemoglobin 15.0 g/dl (12.0-16.0); Imm Gran Abs Auto 0.03 X10*3/uL (0.00-0.03); Imm Gran Pct Auto 0.6 % (0.0-0.4); Lymphocytes Absolute Auto 1.1 X10*3/uL (1.2-4.9); Mean Corpuscular HGB Conc 33.9 g/dl (31.0-35.0); Mean Corpuscular Hemoglobin 27.9 pg (27.0-33.0); Mean Corpuscular Volume 82.2 fL (80.0-98.0); NRBC Abs Auto 0.000 X10*3/uL (0.0-0.012); NRBC Pct Auto 0.0 /100WBC (0.0-0.2); Platelet Count 231 X10*3/uL (160-400); Red Blood Count 5.38 X10*6/uL (4.20-5.50); White Blood Count 5.4 X10*3/uL (4.8-10.8)
[2025-08-26 15:09] LABS: INTERNATIONAL NORM RATIO 1.2 (0.9-1.1); Prothrombin Time 13.8 SEC (10.9-12.4)
[2025-08-26 15:19] LABS: Alanine Aminotransferase 104 U/L (0-31); Albumin Level 4.5 g/dL (3.5-5.0); Alkaline Phosphatase 54 U/L (39-117); Anion Gap 17 (12-20); Aspartate Amino Transferase 98 U/L (5-31); Blood Urea Nitrogen 8 mg/dL (9-16); Calcium 10.1 mg/dL (8.4-10.2); Carbon Dioxide 25 mmol/L (22-29); Chloride 103 mmol/L (96-108); Creatinine Clr Calc Pharmacy 168.3; Estimated Glomerular Filt Rate > 60; Magnesium 2.2 mg/dL (1.6-2.6); Potassium 3.8 mmol/L (3.3-5.1); Sodium 141 mmol/L (135-145); Total Protein 7.7 g/dL (6.5-8.0)
[2025-08-26] MEDS: Lactated Ringers 1,000 ML 999 ML IV (18:17)
--- OUTSIDE RECORDS SUMMARY | 2025-08-26 18:24 | XMS_ITS | Encounter Summary ---
Author Organization [facility] Address [address] [place] [address] Care Team Providers Care Nurse Educator Name Role Phone Iraida Woodruff Primary Care Provider [phone] Encounter Details Date Type Department Care Team (Late Contact Info) Description 08/22/2025 Lab Requisition [facility] - Main Lab [address] [place] [address] Lasha Moctezuma PA [address] [place] [address] Urinary tract infection, site not specified Social History Tobacco Use Types Packs/Day Years Used Date Smoking Tobacco: Never Smokeless Tobacco: Never Alcohol Use Standard Drinks/Week Comments Yes 1 (1 standard drink = 0.6 oz pur e alcohol) Comments Unknown Sex and Gender Information Value Date Recorded Sex Assigned at Not on file Legal Sex Female 9:03 AM EST Gender Identity Not on file Sexual Orientation Not on file documented as of this encounter Plan of Treatment Upcoming Encounters Date Type Department Care Team (Late Contact Info) Description 01/11/2026 2:00 PM EST Office Visit Nephrology - [place] [id number] [place] [address] Christopher Pollard MD [address] [place] [id number] documented as of this encounter Procedures Procedure Name Priority Date/Time Associated Diagnosis Comments CULTURE URINE Routine 08/22/2025 12:00 AM EDT Urinary tract infection, site not specified documented in this encounter Results * Culture urine (08/22/2025 12:00 AM EDT) Culture, Urine 50,000-99,000 CFU/mL Mixed urogenital joel, no uropathogens present. Suggest repeat specimen if clinically indicated. 08/23/2025 1:26 PM EDT [facility] Urine Urine specimen obtained by clean catch procedure / Unknown 08/22/2025 08/22/2025 6:35 PM EDT [facility] MICROBIOLOGY - GENERAL TREY ALMEIDA Final Result [facility] [address] [place] [address], documented in this encounter Visit Diagnoses Diagnosis Urinary tract infection, site not specified documented in this encounter Care Teams Nurse Educator Relationship Specialty Start Date End Date Iraida Woodruff PA [address] [place] [address], [address] [place] [address] PCP - General 08/23/25 documented as of this encounter
--- OUTSIDE RECORDS SUMMARY | 2025-08-26 18:24 | XMS_ITS | Patient Health Record ---
Author Organization [facility] Address [address] [place] [address] Support Name Relationship Address Phone Nena Zafar Guarantor Unknown [phone] Allergies Allergen (clinical drug ingredient) Drug/Non Drug [...] Status Risk Notes Problem Morbid obesity (disorder) (294584066) Morbid (severe) obesity due to excess calories (E66.01) Active confirmed Problem Generalized anxiety disorder (53147456) Generalized anxiety disorder (F41.1) Active confirmed Problem Migraine with aura (1500148) Migraine with aura, not intractable, without status migrainosus (G43.109) Active confirmed Problem Obstructive sleep apnea syndrome (disorder) (80311478) Obstructive sleep apnea (adult) (pediatric) (G47.33) Active confirmed Problem Essential hypertension (30040717) Essential (primary) hypertension (I10) Active confirmed Problem Mild intermittent asthma (738214715) Mild intermittent asthma, uncomplicated (J45.20) Active confirmed Problem Gastro-esophageal reflux disease without esophagitis (978996714) Gastro-esophageal reflux disease without esophagitis (K21.9) Active confirmed Problem Attention deficit hyperactivity disorder, predominantly inattentive type (disorder) (14666077) Attention and concentration deficit (R41.840) Active confirmed Plan Of Treatment No Information Insurance Providers Payer Name Payer Address Payer Phone Subscriber Number Group Number Insured Name Patient Relationship to Insured Coverage Start Date Coverage End Date [facility] [address] [place] [address] [id number] Nena Ballard Self - patient is the insured Medical (General) History Medical History History ICD Code Generalized anxiety disorder/major depre ssive disorder, sees psychiatry ADD GERD Mild intermittent asthma Migraine headaches with aura Hypertension AIDAN cannot tolerate CPAP Surgical History Surgery Date(Month/Year) strabismus surgery
--- OUTSIDE RECORDS SUMMARY | 2025-08-26 18:24 | XMS_ITS | Clinical Summary ---
Author Organization [facility] Address [address] [place] [address] Phone Care Team Providers Care Commutator V Ring Assembler Name Role Phone Darin Restrepo MD Primary [...] EST) SODIUM 140 133 - 146 mmol/L [facility] CHLORIDE 103 96 - 108 mmol/L [facility] POTASSIUM 4.6 3.3 - 5.1 mmol/L [facility] CO2 27 21 - 35 mmol/L [facility] BUN 15 6 - 19 mg/dL [facility] CREATININE 1.00 0.5 - 1.5 mg/dL [facility] GLUCOSE 100(H) 70 - 99 mg/dL [facility] CALCIUM 9.2 8.4 - 10.3 mg/dL [facility] EGFR 81 >59 mL/min/1.7 3m2 [facility] Comment:Estimated glomerular filtration rate calculated using the CKD-EPI refit equation. ANION GAP 15 10 - 20 mmol/L [facility] Blood 01/22/2024 12:3 5 AM EST 01/22/2024 12:40 AM EST us Grayson Ivan DO LAB BLOOD ORDERABLES F inal Result [facility] [address] [place] [address] from Last 3 Months or Most Recently Relevant to Health Maintenance Insurance [facility] MEDICARE REPLACEMENT [place] [id number] [facility] RE[facility] [place] [address] [address] [facility] MEDICARE REPLACEMENT CARE MEDICARE REPLACEMENT CARE MEDICARE REPLACEMENT [place] [id number] [facility] [place] [address] [address] [facility] MEDICARE REPLACEMENT [place] [id number] [facility] Care Teams Commutator V Ring Assembler Relationship Specialty Start Date End Date Darin Restrepo MD [address] [place] [id number] PCP - General Internal Medicine 11/30/21 Additional Source Comments The information contained in this document represents components of the legal health record. It is not the complete legal health record.[facility]
--- OUTSIDE RECORDS SUMMARY | 2025-08-26 18:24 | XMS_ITS | Encounter Summary ---
Author Organization [facility] Address [address] [place] [address] Phone Care Team Providers Care Cold Header Name Role Phone Arpita White MD Primary Care Provider Martina Hunter MD Primary Care Provider [phone] Darin Restrepo MD Primary Care Provider + Encounter Details Date Type Department Care Team (Latest Contact Info) Description 10/24/2017 Transcribe Orders [facility] [address] [place] [address] Cameron Jones MD [address] [place] [address] Hirsutism (Primary Dx); Oligomenorrhea, unspecified [...] (10/24/2017 8:29 AM EST) HDL 51 mg/dL [facility] Comment: Interpretation: Risk Level Females Decreased >55mg/dL Average 50-55 mg/dL Increased <50 mg/dL CHOLESTEROL 141 0 - 240 mg/dL [facility] Comment: Pediatric Reference Ranges for 2 to 18 years Acceptable: Less than 170 mg/dL Borderline: 170 - 199 mg/dL High: Greater than or equal to 200 mg/dL TRIGLYCERIDES 73 30 - 160 mg/dL [facility] LDL 75 50 - 129 mg/dL [facility] Comment: LDL levels in terms of risk for coronary heart disease: <100 mg/dL: Optimal 100-129 mg/dL: Near or above optimal 130-159 mg/dL: Borderline high 160-189 mg/dL: High >190 mg/dL: Very High CARDIAC RISK RATIO 2.8(L) 3.3 - 4.4 [facility] Blood 10/24/2017 8:29 AM EST 10/24/2017 8:33 AM EST Cameron Jones MD LAB BLOOD ORDERABLES Fi nal Result Performing Organization Address City/State/[facility] Co de Phone Number [facility] [address] [place] [address] documented in this encounter Visit Diagnoses Diagnosis Hirsutism- Primary Oligomenorrhea, unspecified type documented in this encounter Additional Health Concerns Infection Onset Date Last Indicated Resolved Time CoV-Risk 02/16/2023 02/16/2023 02/27/2023 1:22 AM EDT CoV-Risk 01/21/2024 01/21/2024 02/01/2024 1:22 AM EST documented as of this encounter Care Teams Cold Header Relationship Specialty Start Date End Date Arpita White MD [address] [place] [address] PCP - General Pediatrics 10/24/17 11/22/19 Martina Torres MD [address] [place] [address] PCP - General Internal Medicine 11/23/19 11/29/21 Darin Restrepo MD [address] [place] [address] PCP - General Internal Medicine 11/30/21 documented as of this encounter Additional Source Comments The information contained in this document represents components of the legal health record. It is not the complete legal health record.[facility]
--- OUTSIDE RECORDS SUMMARY | 2025-08-26 18:24 | XMS_ITS | Clinical Summary ---
Author Organization [facility] [address] [place] [address] [place] [phone] Phone Care Team Providers Care Continuous Conveyor Screen Drier Name Role Phone Iraida Woodruff Primary Care Provider [phone] Allergies Active Allergy Reactions Criticality Noted Date Comments Cephalexin 10/23/2020 Burning sensation all over body. Doxycycline Hyclate 10/23/2020 hives Penaten 02/20/2023 Penicillin G Hives High 02/17/2023 Pt stated had bad reaction. She had hives all over the body. Sulfa (Sulfonamide Antibiotics) 03/06/2021 Medications cloNIDine ([id number] ) 0.3 mg/[address] 1 Patch onto the skin once a week. 4 Active emollient comb no.2, bulk, ointment Apply 0.5 g topically 2 times daily. 5% gabapentin ointment Sig: Apply 0.5 g daily to affected area Patient phone number: [phone] (home) 3 Active cholecalciferol (VITAMIN D-3) 1,250 [...] processing disorder 08/27/2024 Overview (08/27/2024): according to [employer] [facility] hearing report dated 01-15-13 Report from [...] with BMI of 6 0.0-69.9, adult ([facility] V24, [facility] V28) 08/27/2024 Chlamydia 11/14/2023 [...] Menorrhagia 07/14/2012 Overview (08/27/2024): Follows with [facility], has tiffany iud Last Assessment & Plan: Call ped hussein for follow up appt. Asthma 06/20/2006 Overview (08/27/2024): Dr. Cummins; armen macedo 04-14-12: no controllers; no recent F/U Dr. Cummins Asthma Control Test Total Score: 16 started flovent 220 2 p daily 04-30-13: Asthma Control Test Total Score: 19 Interpetation of Score: < or equal to 19 Intervention Recommended ACT 06-06 = 20 05-04-15: [facility] exacerbation as of 08-08- no prob since 03-27-16: [facility] 40mg As of 11-08- [...] eval confirms dx of ADHD- accommodations in [employer]- full inclusion 03-07-15: normal EKG- done as baseline per stim use 08-08-15; Alanna Echeverria- wellbutrin started 04-0711-08-16: Dr. Terry Riley- wellbutrin XR 150 mg 11/09: continues with Dr. Riley- is now on adderall and zoloft and takes propranolol if performance anxiety- has not taken it Last Assessment & Plan: Continue seeing Dr. Riley. Let him know you have asthma. Encounters Date Type Department Care Team Description 08/22/2025 Lab Requisition [facility] - Main Lab [address] [place] [address] Lasha Moctezuma, CHERYL Urinary tract infection, site not specified from Last 3 Months Immunizations Immunization Administration Dates Next Due DTaP (Infanrix) 6wks to less than 7yo ,07/17/2000,1999,09/04,1999 IMrI-CHW-ZBE (Pentacel) 2mo to less than 5yo 06/18/2000,1999,1999,06/01 H1N1 Inj Preservative Free 12/22/2009 HPV, Quadrivalent 04/30/2013,07/14/2012,04/14/20 12 Hepatitis B (Zcsmiuo-L-Ifkgg , Recombivax HB-Adult) 19yo and older 07/12/2020,02/09/2020,01/05/2020 [...] 04/27/2003,06/12/2000 Meningococcal MCV4P 08/08/2015,04/14/2012 PPD Test 11/10/2019 Pfizer SARS-CoV-2 COVID-19, mRNA, LNP-S, preservative free 09/04/2021 [...] TUBES OTHER SURGICAL HISTORY age 1.5yr PROCEDURE: [place] BRONCHOSCOPY W/TRANSBRONCHIAL LUNG BX 1 LOBE EYE SURGERY PROCEDURE: HISTORICAL EYE SURGERY Medical History Medical History Date Comments Essential hypertension 08/31/2019 DX:Essent ial hypertension Migraine with aura DX:Migraine w ith aura; COMMENT: Naprosyn 04-14-12: worsening- started amitriptyline 25 mg hs Saw neurologist and is on topamax- now 100 mg 08-08-15: ped neuro- verapamil 40 mg bid in addition to myaerus520 mg hs; fioricet PRN, riboflavin, magnesium 10-10-15: [...] 2:00 PM EST Office Visit Nephrology - [place] [address] [place] [address] Christopher Pollard MD [address] [facility] [address] [place] [address] Health Maintenance Due Date Last Done Comments Pneumococcal Vaccine: Pediatrics (0 to 5 Years) and At-Risk Patients (6 to 49 Years) (1 of 1 - PPSV23, PCV20, or PCV21) 10/26/2019 08/31/2019, 04/14/2001, 07/17/2000 HIV Screening 11/02/2022 [...] 04/27/2031 04/27/2021, 04/11/2011, 05/01/2004, Additional history exists RSV Immunization Adult Patients (1 - 1-dose 75+ series) 2074 HIB Vaccines Completed 06/18/2000, 05/25, 1999, Additional [...] EDT Urinary tract infection, site not specified ANNUAL BMP BLOOD TEST Routine 01/22/2024 GONORRHEA/CHLAMYDIA SCRREENING Routine 11/13/2023 DEPRESSION SCREENING Routine 10/06/2023 LIPID PANEL Routine 12/06/2022 PAP SMEAR Routine 09/05/2022 from Last 3 Months or Most Recently Relevant to Health Maintenance Results * Culture urine (08/22/2025 12:00 AM EDT) Culture, Urine 50,000-99,000 CFU/mL Mixed urogenital rosa, no uropathogens present. Suggest repeat specimen if clinically indicated. 08/23/2025 1:26 PM EDT [facility] Urine Urine specimen obtained by clean catch procedure / Unknown 08/22/2025 08/22/2025 6:35 PM EDT [facility] Rhianna LUNA LAB MICROBIOLOGY - GENERAL TREY ALMEIDA Final Result [facility] [address] [place] [address], * Annual BMP Blood Test (01/22/2024) Annual BMP Blood Test abstracted [facility] Provider MD HEALTH MAINTENANCE Final Result * Gonorrhea/Chlamydia Screening (11/13/2023) Gonorrhea/Chla mydia Screening abstracted [facility] Provider MD HEALTH MAINTENANCE Final Result * Depression Screening (10/06/2023) Depression Screening abstracted [facility] Provider MD HEALTH MAINTENANCE Final Result * Lipid panel (12/06/2022) Pathologist [facility] LDL/HDL Ratio 2 0 - 4 Triglycerides 71 0 - 150 mg/dL Cholesterol 117 0 - 200 mg/dL HDL 48 >=40 mg/dL LDL Cholesterol 55 0 - 100 mg/dL Blood Venous blood specimen / Unknown [facility] Provider MD LAB BLOOD ORDERABLES Praveena l Result * Pap smear (09/05/2022) 09/05/2022 Narrative HISTORICAL TESTING LAB RESULTING AGENCY - 09/12/2022 7:30 AM EDT [id number] THINPREP PAP, IMAGED: NEGATIVE FOR SQUAMOUS INTRAEPITHELIAL LESION AND MALIGNANCY . SHIFT IN ROSA, SUGGESTIVE OF BACTERIAL VAGINOSIS. GARCÍA CHATTERJEE(ASCP) (CASE ELECTRONICALLY SIGNED 09 11 2022) ADEQUACY: SATISFACTORY ENDOCERVICAL/TRANSFORMATION ZONE COMPONENT PRESENT. SOURCE: THINPREP PAP HPV IF ASCUS, CERVICAL, IMAGED CLINICAL INFORMATION: HPV IF DIAGNOSIS OF ASCUS. [Z12.4] us Yeni Lynch MD LAB CYTOLOGY ORDERABLES Fin al Result HISTORICAL TESTING LAB RESULTING AGENCY from Last 3 Months or Most Recently Relevant to Health Maintenance Insurance MEDICAID - [place] Care Teams Continuous Conveyor Screen Drier Relationship Specialty Start Date End Date Iraida Woodruff PA [address] [facility], [address] [place] [address] PCP - General 08/23/25
--- OUTSIDE RECORDS SUMMARY | 2025-08-26 18:24 | XMS_ITS | Encounter Summary ---
Author Organization [facility] Address [address] [place] [address] Phone Care Team Providers Care Technical Intern Name Role Phone Darin Restrepo MD Primary Care Provider + Encounter Details Date Type Department Care Team (Late st Contact Info) Description 01/22/2024 Procedure Pass [facility], Ct Scan - [facility] [address] [place] [address] Social History Tobacco Use Types Packs/Day Years [...] documented as of this encounter Care Teams Technical Intern Relationship Specialty Start Date End Date Darin Restrepo MD [address] [place] [address] PCP - General Internal Medicine 11/30/21 documented as of this encounter Additional Source Comments The information contained in this document represents components of the legal health record. It is not the complete legal health record.[facility]
--- OUTSIDE RECORDS SUMMARY | 2025-08-26 18:24 | XMS_ITS | Encounter Summary ---
Author Organization [facility] Address [address] [place] [address] Phone Care Team Providers Care Stopper Maker Helper Name Role Phone Darin Restrepo MD Primary Care Provider + Encounter Details Date Type Department Care Team (Late st Contact Info) Description 10/10/2022 Procedure Pass [facility], Ct Scan - [address] [address] Social History Tobacco Use Types Packs/Day Years [...] documented as of this encounter Care Teams Stopper Maker Helper Relationship Specialty Start Date End Date Darin Restrepo MD [address] [place] [id number] PCP - General Internal Medicine 11/30/21 documented as of this encounter Additional Source Comments The information contained in this document represents components of the legal health record. It is not the complete legal health record.[facility]
--- OUTSIDE RECORDS SUMMARY | 2025-08-26 18:24 | XMS_ITS | Encounter Summary ---
Author Organization [facility] Address [address] [facility] [address] [place] [address] Phone Care Team Providers Care Hr Leader Name Role Phone Darin Restrepo MD Primary Care Provider + Encounter Details Date Type Department Care Team (Late st Contact Info) Description 01/22/2024 Procedure Pass [facility], Ct Scan - [facility] [address] [place] [address] Social History Tobacco Use Types Packs/Day Years [...] documented as of this encounter Care Teams Hr Leader Relationship Specialty Start Date End Date Darin Restrepo MD [address] [place] [address] PCP - General Internal Medicine 11/30/21 documented as of this encounter Additional Source Comments The information contained in this document represents components of the legal health record. It is not the complete legal health record.[facility]
[2025-08-26 20:15] LABS: Troponin-I High Sensitivity 7.6 ng/L (<3.5-17.0)
[2025-08-26 21:34] LABS: D Dimer High Sensitivity < 150 NG/ML
== END 2025-08-26 21:25 | disposition home or self-care (01) ==
PROVIDERS: Physician Assistant Medical; Registered Nurse Emergency; Emergency Provider Emergency Medicine
DX: R11.2 Nausea with vomiting, unspecified (principal); R20.0 Anesthesia of skin; I10 Essential (primary) hypertension; R10.22 Pelvic and perineal pain left side; Z98.84 Bariatric surgery status; Z79.899 Other long term (current) drug therapy; Z51.81 Encounter for therapeutic drug level monitoring
CPT/HCPCS: 36415; 80053; 83735; 84484; 84702; 85025; 85379; 85610; 93005; 96361; 96374; 96375; 99284; 99285; J1200; J2405; J2765; J7120

== ENCOUNTER → 2025-08-26 14:17 | Outpatient (BNV) | payer MEDICARE, SELFPAY | PROVIDERS: Emergency Provider Emergency Medicine; Visit Provider Internal Medicine | DX: R42 Dizziness and giddiness (principal) | CPT/HCPCS: 93010 ==

== ENCOUNTER 2025-08-29 10:00 | Outpatient (AMB) | payer OTHER, SELFPAY ==
--- NOTE | 2025-08-29 10:05 | MHC.WMTHER ---
Intake Intake Visit Reasons: TV PO LSG 07/14/25 Allergies cephalexin (From Keflex) Allergy (Intermediate, Verified 08/29/25 11:57) Redness of Skin doxycycline Allergy (Intermediate, Verified 08/29/25 11:57) Hives Penicillins Allergy (Intermediate, Verified 08/29/25 11:57) Hives, burning sensation Sulfa (Sulfonamide Antibiotics) Allergy (Intermediate, Verified 08/29/25 11:57) Hives,palpatations PFSH Medical History Annual physical exam Well woman exam with routine gynecological exam Morbid obesity with BMI of 60.0-69.9, adult Screening for cervical cancer Sleep apnea treated with nocturnal bilevel positive airway pressure (BPAP) Sleep apnea PCOS (polycystic ovarian syndrome) Migraines ADHD (attention deficit hyperactivity disorder) Depression GERD (gastroesophageal reflux disease) Morbid obesity Asthma High blood pressure Surgical History S/P gastric sleeve procedure S/P tonsillectomy History of eye surgery Family History Maternal Grandmother Breast cancer Mother Diabetes Other HTN (hypertension) Social History Household Members: None Housing: Apartment Are you a primary restorative care technician to a significant other at home: No Do you presently have visiting nurse or other home services: No Alcohol intake: current Alcohol intake frequency: holidays/special occasions only Patient Tobacco Use Status: Never used Tobacco e-Cigarette/Vaping Use: Never Used Second Hand Smoke Exposure: No service: No Current occupational status: employed Cognitive needs: No Hearing needs: No Vision needs: Yes (Glasses) Female Reproductive History Menstrual Age of Menarche: 11 Behavioral Health Assessment Weight Management Therapy Therapy Notes Details Subjective: Patient reports feeling weak for the past few days and has visited the ER twice due to these symptoms. She spoke with the PA earlier today, who advised her to come in for labs; however, the patient was unable to drive and had no available transportation. During the session, the patient was oriented to person, time, and place but reported not remembering the last couple of days and described her perception as things are blurry. She was tearful, anxious, and expressed feeling overwhelmed. The patient was observed holding herself against the bed for support. When asked to put her mother on the line to further assess the situation, the patient fell, and her mother also became distressed. The patient reported inability to feel her legs, tingling sensations in her hands and feet, acid reflux with gagging, and two episodes of non-bloody emesis. She became increasingly overwhelmed and began hyperventilating. Objective: Provider observed the patient unable to stand, appearing weak, anxious, and emotionally distressed. Due to the acute presentation and safety concerns, 911 was called for emergency support. The session was terminated upon the arrival of the ambulance, and the patient was transported to [facility]. Provider remained on the line with the patient until EMS arrived, providing deep breathing exercises, validation, and reassurance. Nicolas Sahu was updated regarding the event for further coordination with the ED. Assessment/Response: Mental status: Oriented to person, time, and place; impaired recent memory; anxious, tearful, overwhelmed; physical symptoms of weakness, paresthesia, and GI distress. Risk reported/identified: Acute medical and psychiatric distress, impaired mobility and risk of further decompensation. Assessment & Plan Assessment & Plan (1) Anxiety disorder: Code(s): F41.9 - Anxiety disorder, unspecified (2) History of ADHD: Code(s): Z86.59 - Personal history of other mental and behavioral disorders (3) Status post bariatric surgery: Code(s): Z98.84 - Bariatric surgery status Plan Patient transported to ED via ambulance for immediate evaluation and management. Provider to follow up with patient later today. Next appointment: To be determined. Telehealth Telehealth Telehealth Platform: [employer] Location of provider rendering services: other (Home office. [place], [place]) Location of patient: other (mom's house in [place], [place]) Patient Identification confirmed using: Name, : Yes Telehealth method: video Patient verbally consented to treatment: Yes Patient verbally consented to billing insurance company: Yes Patient informed of any privacy concerns related to visit: Yes Minutes spent on Phone/Video with Pt.: 40 Coding Level of Care Code Established Pt Tele Psytx 45 mins (20440) Patient Type Established Diagnoses Anxiety disorder F41.9 History of ADHD Z86.59 Status post bariatric surgery Z98.84 Time Spent (min) 40
--- OUTSIDE RECORDS SUMMARY | 2025-08-29 12:21 | XMS_ITS | Clinical Summary ---
Author Organization [facility] Address [address] [place] [address] Phone Care Team Providers Care Artificial Teeth Inspector Name Role Phone Darin Restrepo MD Primary [...] EST) SODIUM 140 133 - 146 mmol/L [facility] CHLORIDE 103 96 - 108 mmol/L [facility] POTASSIUM 4.6 3.3 - 5.1 mmol/L [facility] CO2 27 21 - 35 mmol/L [facility] BUN 15 6 - 19 mg/dL [facility] CREATININE 1.00 0.5 - 1.5 mg/dL [facility] GLUCOSE 100(H) 70 - 99 mg/dL [facility] CALCIUM 9.2 8.4 - 10.3 mg/dL [facility] EGFR 81 >59 mL/min/1.7 3m2 [facility] Comment:Estimated glomerular filtration rate calculated using the CKD-EPI refit equation. ANION GAP 15 10 - 20 mmol/L [facility] Blood 01/22/2024 12:3 5 AM EST 01/22/2024 12:40 AM EST us Grayson Ivan DO LAB BLOOD ORDERABLES F inal Result [facility] [address] [place] [address] from Last 3 Months or Most Recently Relevant to Health Maintenance Insurance [facility] CARE MEDICARE REPLACEMENT [place] [id number] [facility] RE[facility] [address] [address] [facility] MEDICARE REPLACEMENT CARE MEDICARE REPLACEMENT CARE MEDICARE REPLACEMENT [place] [id number] [facility] [address] [address] [facility] CARE MEDICARE REPLACEMENT [place] [id number] [facility] Care Teams Artificial Teeth Inspector Relationship Specialty Start Date End Date Darin Restrepo MD [address] [place] [address] PCP - General Internal Medicine 11/30/21 Additional Source Comments The information contained in this document represents components of the legal health record. It is not the complete legal health record.[facility]
--- OUTSIDE RECORDS SUMMARY | 2025-08-29 12:21 | XMS_ITS | Encounter Summary ---
Author Organization [facility] Address [address] [place] [address] Phone Care Team Providers Care Property Administrator Name Role Phone Arpita White MD Primary Care Provider Martina Hunter MD Primary Care Provider [phone] Darin Restrepo MD Primary Care Provider + Encounter Details Date Type Department Care Team (Latest Contact Info) Description 10/24/2017 Transcribe Orders [facility] [address] [place] [address] Cameron Jones MD [address] [place] [address] Hirsutism (Primary Dx); Oligomenorrhea, unspecified [...] (10/24/2017 8:29 AM EST) HDL 51 mg/dL [facility] Comment: Interpretation: Risk Level Females Decreased >55mg/dL Average 50-55 mg/dL Increased <50 mg/dL CHOLESTEROL 141 0 - 240 mg/dL [facility] Comment: Pediatric Reference Ranges for 2 to 18 years Acceptable: Less than 170 mg/dL Borderline: 170 - 199 mg/dL High: Greater than or equal to 200 mg/dL TRIGLYCERIDES 73 30 - 160 mg/dL [facility] LDL 75 50 - 129 mg/dL [facility] Comment: LDL levels in terms of risk for coronary heart disease: <100 mg/dL: Optimal 100-129 mg/dL: Near or above optimal 130-159 mg/dL: Borderline high 160-189 mg/dL: High >190 mg/dL: Very High CARDIAC RISK RATIO 2.8(L) 3.3 - 4.4 [facility] Blood 10/24/2017 8:29 AM EST 10/24/2017 8:33 AM EST Cameron Jones MD LAB BLOOD ORDERABLES Fi nal Result Performing Organization Address City/State/[facility] Co de Phone Number [facility] [address] [place] [address] documented in this encounter Visit Diagnoses Diagnosis Hirsutism- Primary Oligomenorrhea, unspecified type documented in this encounter Additional Health Concerns Infection Onset Date Last Indicated Resolved Time CoV-Risk 02/16/2023 02/16/2023 02/27/2023 1:22 AM EDT CoV-Risk 01/21/2024 01/21/2024 02/01/2024 1:22 AM EST documented as of this encounter Care Teams Property Administrator Relationship Specialty Start Date End Date Arpita White MD [address] [place] [address] PCP - General Pediatrics 10/24/17 11/22/19 Martina Torres MD [address] [place] [address] PCP - General Internal Medicine 11/23/19 11/29/21 Darin Restrepo MD [address] [place] [address] PCP - General Internal Medicine 11/30/21 documented as of this encounter Additional Source Comments The information contained in this document represents components of the legal health record. It is not the complete legal health record.[facility]
--- OUTSIDE RECORDS SUMMARY | 2025-08-29 12:21 | XMS_ITS | Encounter Summary ---
Author Organization [facility] Address [address] [facility] [address] [place] [address] Phone Care Team Providers Care Drywall Mechanic Name Role Phone Darin Restrepo MD Primary Care Provider + Encounter Details Date Type Department Care Team (Late st Contact Info) Description 01/22/2024 Procedure Pass [facility], Ct Scan - [address] [address] Social History Tobacco Use Types Packs/Day Years [...] documented as of this encounter Care Teams Drywall Mechanic Relationship Specialty Start Date End Date Darin Restrepo MD [address] [place] [address] PCP - General Internal Medicine 11/30/21 documented as of this encounter Additional Source Comments The information contained in this document represents components of the legal health record. It is not the complete legal health record.[facility]
--- OUTSIDE RECORDS SUMMARY | 2025-08-29 12:21 | XMS_ITS | Clinical Summary ---
Author Organization [facility] [address] [place] [address] [place] [phone] Phone Care Team Providers Care Manager Hospital Name Role Phone Iraida Woodruff Primary Care Provider [phone] Allergies Active Allergy Reactions Criticality Noted Date Comments Cephalexin 10/23/2020 Burning sensation all over body. Doxycycline Hyclate 10/23/2020 hives Penaten 02/20/2023 Penicillin G Hives High 02/17/2023 Pt stated had bad reaction. She had hives all over the body. Sulfa (Sulfonamide Antibiotics) 03/06/2021 Medications cloNIDine (UYLBLIBW-HUG-6 ) 0.3 mg/[address] 1 Patch onto the skin once a week. 4 Active emollient comb no.2, bulk, ointment Apply 0.5 g topically 2 times daily. 5% gabapentin ointment Sig: Apply 0.5 g daily to affected area Patient phone number: [phone] (home) 3 Active cholecalciferol (VITAMIN D-3) 1,250 [...] processing disorder 08/27/2024 Overview (08/27/2024): according to [facility] hearing report dated 01-15-13 Report from [...] with BMI of 6 0.0-69.9, adult ([facility] V24, [facility] V28) 08/27/2024 Chlamydia 11/14/2023 PCOS [...] Recommended ACT 06-06 = 20 05-04-15: [facility]- no prob since 03-27-16[facility] As of 11-08- [...] eval confirms dx of ADHD- accommodations in [place], [employer]- full inclusion 03-07-15: normal [...] Department Care Team Description 08/22/2025 Lab Requisition [facility] - Main Lab [address] [place] [address] Lasha Moctezuma, CHERYL Urinary tract infection, site not specified from Last 3 Months Immunizations Immunization Administration Dates Next Due DTaP (Infanrix) 6wks to less than 7yo ,07/17/2000,1999,09/04,1999 CUtI-GTL-DRH (Pentacel) 2mo to less than 5yo 06/18/2000,1999,1999,06/01 H1N1 Inj Preservative Free 12/22/2009 HPV, Quadrivalent 04/30/2013,07/14/2012,04/14/20 12 Hepatitis B (Htxdiev-L-Bkibz , Recombivax HB-Adult) 19yo and older 07/12/2020,02/09/2020,01/05/2020 [...] 2:00 PM EST Office Visit Nephrology - [place] [address] [place] [address] Christopher Pollard MD [address] [facility] [address] [place] [address] Health Maintenance Due Date Last Done Comments [...] if clinically indicated. 08/23/2025 1:[address] [facility] Urine Urine specimen obtained by clean catch procedure / Unknown 08/22/2025 08/22/2025 6:[address] [facility] Rhianna LUNA LAB MICROBIOLOGY - GENERAL TREY ALMEIDA Final Result [facility] [address] [place] [address], * Annual BMP Blood Test (01/22/2024) Annual BMP Blood Test abstracted [facility] Provider MD HEALTH MAINTENANCE Final Result * Gonorrhea/Chlamydia Screening (11/13/2023) Gonorrhea/Chla mydia Screening abstracted [facility] Provider MD HEALTH MAINTENANCE Final Result * Depression Screening (10/06/2023) Depression Screening abstracted [facility] Provider MD HEALTH MAINTENANCE Final Result * Lipid panel (12/06/2022) Pathologist [facility] LDL/HDL Ratio 2 0 - 4 Triglycerides 71 0 - 150 mg/dL Cholesterol 117 0 - 200 mg/dL HDL 48 >=40 mg/dL LDL Cholesterol 55 0 - 100 mg/dL Blood Venous blood specimen / Unknown [facility] Provider MD LAB BLOOD ORDERABLES Praveena l Result * Pap smear (09/05/2022) 09/05/2022 Narrative HISTORICAL TESTING LAB RESULTING AGENCY - 09/12/2022 7:30 AM EDT [id number] THINPREP PAP, IMAGED: NEGATIVE FOR SQUAMOUS INTRAEPITHELIAL [...] Maintenance Insurance MEDICAID - [place] Care Teams Manager Hospital Relationship Specialty Start Date End Date Iraida Woodruff PA [address] [facility], [address] [place] [address] PCP - General 08/23/25
--- OUTSIDE RECORDS SUMMARY | 2025-08-29 12:21 | XMS_ITS | Encounter Summary ---
Author Organization [facility] Address [address] [facility] [address] [place] [address] Phone Care Team Providers Care Print Production Associate Name Role Phone Darin Restrepo MD Primary Care Provider + Encounter Details Date Type Department Care Team (Late st Contact Info) Description 10/10/2022 Procedure Pass [facility], Ct Scan - [address] [address] Social History Tobacco Use Types Packs/Day Years [...] documented as of this encounter Care Teams Print Production Associate Relationship Specialty Start Date End Date Darin Restrepo MD [address] [place] [id number] PCP - General Internal Medicine 11/30/21 documented as of this encounter Additional Source Comments The information contained in this document represents components of the legal health record. It is not the complete legal health record.[facility]
--- OUTSIDE RECORDS SUMMARY | 2025-08-29 12:21 | XMS_ITS | Encounter Summary ---
Author Organization [facility] Address [address] [place] [address] Care Team Providers Care Wellness Program Manager Name Role Phone Iraida Woodruff Primary Care Provider [phone] Encounter Details Date Type Department Care Team (Late Contact Info) Description 08/22/2025 Lab Requisition [facility] - Main Lab [address] [facility] [place] [address] Lasha Moctezuma PA [address] [place] [address] Urinary tract infection, site not specified Social [...] 2:00 PM EST Office Visit Nephrology - [place] [address] [place] [address] Christopher Pollard MD [address] [place] [phone] documented as of this encounter Procedures Procedure Name Priority Date/Time Associated Diagnosis Comments CULTURE URINE Routine 08/22/2025 12:00 AM EDT Urinary tract infection, site not specified documented in this encounter Results * Culture urine (08/22/2025 12:00 AM EDT) Culture, Urine 50,000-99,000 CFU/mL Mixed urogenital joel, no uropathogens present. Suggest repeat specimen if clinically indicated. 08/23/2025 1:26 PM EDT [facility] Urine Urine specimen obtained by clean catch procedure / Unknown 08/22/2025 08/22/2025 6:35 PM EDT L[facility] MICROBIOLOGY - GENERAL TREY ALMEIDA Final Result [facility] [address] [place] [address], documented in this encounter Visit Diagnoses Diagnosis Urinary tract infection, site not specified documented in this encounter Care Teams Wellness Program Manager Relationship Specialty Start Date End Date Iraida Woodruff PA [address] [place] [address], [address] [place] [address] PCP - General 08/23/25 documented as of this encounter
--- OUTSIDE RECORDS SUMMARY | 2025-08-29 12:21 | XMS_ITS | Patient Health Record ---
Author Organization [facility] Address [address] [place] [address] Support Name Relationship Address Phone Nena Zafar Guarantor Unknown [phone] Allergies Allergen (clinical drug ingredient) Drug/Non Drug [...] Status Risk Notes Problem Morbid obesity (disorder) (726794919) Morbid (severe) obesity due to excess calories (E66.01) Active confirmed Problem Generalized anxiety disorder (32997767) Generalized anxiety disorder (F41.1) Active confirmed Problem Migraine with aura (6590349) Migraine with aura, not intractable, without status migrainosus (G43.109) Active confirmed Problem Obstructive sleep apnea syndrome (disorder) (16856141) Obstructive sleep apnea (adult) (pediatric) (G47.33) Active confirmed Problem Essential hypertension (38582045) Essential (primary) hypertension (I10) Active confirmed Problem Mild intermittent asthma (328282083) Mild intermittent asthma, uncomplicated (J45.20) Active confirmed Problem Gastro-esophageal reflux disease without esophagitis (602009532) Gastro-esophageal reflux disease without esophagitis (K21.9) Active confirmed Problem Attention deficit hyperactivity disorder, predominantly inattentive type (disorder) (80666281) Attention and concentration deficit (R41.840) Active confirmed Plan Of Treatment No Information Insurance Providers Payer Name Payer Address Payer Phone Subscriber Number Group Number Insured Name Patient Relationship to Insured Coverage Start Date Coverage End Date [facility] [address] [place] [phone] [id number] Nena Ballard Self - patient is the insured Medical (General) History Medical History History ICD Code Generalized anxiety disorder/major depre ssive disorder, sees psychiatry ADD GERD Mild intermittent asthma Migraine headaches with aura Hypertension AIDAN cannot tolerate CPAP Surgical History Surgery Date(Month/Year) strabismus surgery
--- OUTSIDE RECORDS SUMMARY | 2025-08-29 12:21 | XMS_ITS | Encounter Summary ---
Author Organization [facility] Address [address] [place] [address] Phone Care Team Providers Care Rn Orthopaedic Name Role Phone Darin Restrepo MD Primary Care Provider + Encounter Details Date Type Department Care Team (Late st Contact Info) Description 01/22/2024 Procedure Pass [facility], Ct Scan - [address] [address] Social History Tobacco Use Types Packs/Day Years [...] documented as of this encounter Care Teams Rn Orthopaedic Relationship Specialty Start Date End Date Darin Restrepo MD [address] [place] [id number] PCP - General Internal Medicine 11/30/21 documented as of this encounter Additional Source Comments The information contained in this document represents components of the legal health record. It is not the complete legal health record.[facility]
== END 2025-08-29 10:51 | disposition home or self-care (01) ==
LOC: HO.HBST 10:29
PROVIDERS: Visit Provider Counselor Mental Health
DX: F41.9 Anxiety disorder, unspecified (principal); Z86.59 Personal history of other mental and behavioral disorders; Z98.84 Bariatric surgery status
CPT/HCPCS: 90834

== ENCOUNTER 2025-08-29 11:40 | Inpatient (IN) | payer OTHER, SELFPAY ==
--- NOTE | ~2025-08-29 | XR_ITS ---
EXAMINATION: XR CHEST 1 VIEW HISTORY: Chest pain COMPARISON: Comparison is made with the prior examination dated 03/29/2025. FINDINGS: Two AP portable views of the chest performed at 3:07 PM are submitted. There are low lung volumes. The lungs are clear. There is no pleural effusion, pneumothorax, or pulmonary vascular congestion. The heart is normal in size. The bones are intact. XR/XR chest 1V IMPRESSION: Low lung volumes. No acute cardiopulmonary abnormality. Electronically signed by: Hilario Toure MD 09/01/2025 03:30 PM EDT
--- NOTE | ~2025-08-29 | FL_ITS ---
EXAMINATION: XR LUMBAR PUNCTURE CLINICAL INFORMATION: R/O Guillain-[place] Syndrome COMPARISON: None available. TECHNIQUE: Informed consent was obtained from the patient. Timeout was performed. Using fluoroscopic guidance, the L3-4 interlaminar space was identified, overlying skin marked, and the skin prepped and draped in sterile fashion. Skin and subcutaneous tissues were anesthetized with 1% lidocaine. Subsequently, a 20-gauge Quincke spinal needle was advanced into the thecal sac, and clear CSF was noted at the needle hub. Approximately 17 mL of clear CSF was obtained passively, and sent for laboratory analysis. The patient tolerated the procedure well. There were no immediate complications. 1 fluoroscopic spot image obtained. FLUOROSCOPY TIME: 11 seconds DOSE AREA PRODUCT: 280.5 uGy-m2 (microgray-meter squared) FL/FL guided lumbar puncture LP IMPRESSION: 1. Successful fluoroscopic-guided intralaminar L3-4 lumbar puncture, with removal of approximately 17 mL of clear CSF. Electronically signed by: Onesimo Chacon MD 08/31/2025 02:13 PM EDT
[2025-08-29 11:53] VITALS: BP 137/87; BP 157/80; PULSE 110; PULSE 91; RESP 22; TEMP 36.6; O2SAT 100; O2SAT 97; BMI 49.6
--- NOTE | 2025-08-29 12:21 | ED_ITS ---
HPI - General Adult General Chief complaint: Weakness Stated complaint: WEAK,NUMB,SLUMPED TO FLOOR ON TELE/PSYCH VISIT Time Seen by Provider: 08/29/25 11:52 Source: patient Mode of arrival: ambulatory Limitations: no limitations History of Present Illness ED Provider: Dr. Berkowitz HPI narrative: 25-year-old female history of morbid obesity status post gastric sleeve procedure back in June, carpal tunnel syndrome with chronic bilateral upper extremity numbness and tingling, obstructive sleep apnea presented hospital today for evaluation of a syncopal episode. Patient was began to her counselor today when she had sudden onset of unresponsiveness. Family called 911 then. It was unsure whether patient has had full loss of consciousness. Patient stated that she was unable to recall the event. Denies any chest pain denies any abdominal pain denies any nausea vomiting or diarrhea. Patient did stated that her appetite has been decreased. She has not been drinking much water. She is complaining of paresthesia in her upper extremities and lower extremities. She is complaining of bilateral leg pain as well. Related Data Home Medications ?Medication ?Instructions ?Recorded ?Confirmed levonorgestrel (Mirena) intrauterine 01/21/25 Previous Rx's ?Medication ?Instructions ?Recorded albuterol sulfate 90 mcg/actuation 1 inh inhalation QI D PRN shortness 01/21/25 aerosol inhaler of breath or wheezing #8.5 g anna lisinopril 5 mg tablet 5 mg PO DAILY #90 tabs 05/11 Held on 07/15/25. Instructions: Resume on 07/15/25. Resume only according to parameters given by Dr. Rossi sertraline 50 mg tablet 50 mg PO DAILY #90 tabs 04/24 07/18 ondansetron 4 mg disintegrating 4 mg PO Q12H nausea an d vomiting 06/29/25 tablet #20 tabs pantoprazole 40 mg tablet,delayed 40 mg PO DAILY #90 t abs 06/29/25 release sucralfate 100 mg/mL oral 10 ml PO BID #600 mL 5 suspension gabapentin 100 mg capsule 300 mg (3 x 100 mg) PO BEDTI ME RLS 08/11/25 2 months #180 caps ondansetron HCl 4 mg tablet 4 mg PO Q8H PRN nausea and 08/15/25 vomiting #30 tabs metoclopramide HCl 5 mg tablet 5 mg PO DAILY PRN nause a and 08/26/25 (Reglan) vomiting #20 tabs Allergies Allergy/AdvReac Type Severity Reaction Status Date / Time cephalexin (From Keflex) Allergy Intermediate Redness of Verified 08/29/25 11:57 Skin doxycycline Allergy Intermediate Hives Verified 08/29/25 11:57 Penicillins Allergy Intermediate Hives, Verified 08/29/25 11:57 burning sensation Sulfa (Sulfonamide Allergy Intermediate Hives,palpa Verified 08/29/25 11:57 Antibiotics) tations Review of Systems 2 Review of Systems: Pertinent review of systems as mentioned in HPI. All other system otherwise negative. [facility] Past Medical History [facility] Narrative: Medical history as mentioned in HPI Medical History Annual physical exam Well woman exam with routine gynecological exam Morbid obesity with BMI of 60.0-69.9, adult Screening for cervical cancer Sleep apnea treated with nocturnal bilevel positive airway pressure (BPAP) Sleep apnea PCOS (polycystic ovarian syndrome) Migraines ADHD (attention deficit hyperactivity disorder) Depression GERD (gastroesophageal reflux disease) Morbid obesity Asthma High blood pressure Surgical History S/P gastric sleeve procedure S/P tonsillectomy History of eye surgery Family History Family History Maternal Grandmother Breast cancer Mother Diabetes Other HTN (hypertension) Social History Social History Household Members: None Housing: Apartment Are you a primary childcare director to a significant other at home: No Do you presently have visiting nurse or other home services: No Alcohol intake: current Alcohol intake frequency: holidays/special occasions only Patient Tobacco Use Status: Never used Tobacco Smoked in Last 30 Days: No e-Cigarette/Vaping Use: Never Used Second Hand Smoke Exposure: No Use of substances other than those prescribed or required for medical reasons: No Advance Directives: No Advance Directives Information Provided: Yes Do you have a plan to hurt others: No Plan service: No Current occupational status: employed Cognitive needs: No Hearing needs: No Vision needs: Yes (Glasses) Physical Exam ED Vital Signs: Vital Signs - 24 hr 08/29/25 11:53 08/29/25 14:44 Temperature 97.9 F Pulse Rate 91 74 Respiratory Rate 22 H 16 Blood Pressure 157/80 H 140/82 H Pulse Oximetry 100 97 Oxygen Delivery Method Room Air Room Air BMI result Body Mass Index 49.6 Medications Administered Generic Name Dose Route Start Last Admin Trade Name Freq PRN Reason Stop Dose Admin Potassium Phosphate 15 mmol in 250 mls @ 62.5 mls/hr 08/29/25 13:49 08/29/25 14:25 Kphos IV 08/29/25 17:48 62.5 mls/hr ONCE ONE Administration Discontinued Medications Generic Name Dose Route Start Last Admin Trade Name Freq PRN Reason Stop Dose Admin Cyanocobalamin 1,000 mcg 08/29/25 13:46 08/29/25 14:23 Cyanocobalamin (Vitamin B-12) 1,000 Mcg/Ml Vial IM 08/29/25 13:47 1,000 mcg ONCE ONE Administration Gabapentin 100 mg 08/29/25 12:35 08/29/25 12:56 Gabapentin 100 Mg Capsule PO 08/29/25 12:36 100 mg ONCE ONE Administration Sodium Chloride 1,000 mls @ 999 mls/hr 08/29/25 12:45 08/29/25 12:56 Ns IV 08/29/25 13:45 999 mls/hr .Q1H1M JUAN PABLO Administration Thiamine HCl 100 mg/ Sodium 101 mls @ 202 mls/hr 08/29/25 13:47 08/29/25 15:20 Chloride IV 08/29/25 14:16 Infused ONCE ONE Infusion Folic Acid 1 mg/ Sodium 50.2 mls @ 100.4 mls/hr 08/29/25 15:00 08/29/25 15:38 Chloride IV 08/29/25 15:29 100.4 mls/hr ONCE ONE Administration Ketorolac Tromethamine 15 mg 08/29/25 12:35 08/29/25 12:56 Ketorolac Tromethamine 15 Mg/Ml Vial IVPUSH 08/29/25 12:36 15 mg ONCE ONE Administration Medical Decision Making Medical Decision Making MDM Narrative: 25-year-old female history of carpal tunnel syndrome, morbid obesity status post gastric sleeve procedure presented hospital today for a syncopal episode. She has not complain of headaches. No neurological deficit on exam. She does have difficulty lifting her legs due to pain from her thighs. When she lifts her legs up. But I did not appreciate any signs of neurological deficit. The patient has these nausea and vomiting episodes in the past was noted that she has difficulty advancing her diet after the surgery. She has been in the ER for dehydration in the past. We will obtain a EKG for the patient obtain a troponin. We will obtain a broad workup for the patient given her presentation when climbing VBG lactic acid, ketone level. We will assess her phosphorus level magnesium and electrolytes. Given her decreased appetite. IV fluid will be initiated for the patient does time she does not appear to be having any pain. I did consider obtain a CT head scan however she does not have any headaches. No neurological deficit I am not worried about intracranial bleed or mass. I did consider obtaining CT abdomen and pelvis however patient does not have any abdominal pain or abdominal pain on exam. I did consider possible pulmonary embolism however she does not appear to be hypoxic for have any chest pain. Patient is low risk we will obtain a D-dimer at this time her lower extremity pain is likely neuropathic in nature. May be secondary to vitamin B deficiency from not eating. Patient's D-dimer is not elevated. Electrolyte abnormality of low phosphate level at 1.3. We will plan to replete with potassium phosphate IV. Patient's potassium level at 3.1. Discussed the case with the hospitalist. We will plan to admit the patient to the hospital for further evaluation. EKG did not show any signs of cardiac arrhythmia or STEMI. Discussed the case with Adelina from patient's bariatric team. They recommend IV thiamine, folic acid and vitamin B12. This was ordered for the patient at this time. They also recommend psychiatric evaluation. Patient will be admitted to the hospital for electrolyte abnormality. I do not think patient has a stroke. Her paresthesia in her lower extremity appears to be neuropathic in nature. I did give her some p.o. gabapentin. Differential Diagnosis Differential Diagnoses: The differential diagnosis associated with the presentation includes Hypophosphatemia, hypokalemia, vitamin B12 deficiency, dehydration Admission/Observation Consideration of admission/observation: Escalation of care including admission/observation considered Consult Healthcare Provider Management of the patient was discussed with: Hospitalist Lab Data [facility] Lab Attestation statement: I reviewed the patient's lab results. 08/29/25 12:48 08/29/25 12:48 Labs: Lab Results 08/29/25 08/29/25 08/29/25 Range/Units 12:48 12:56 13:30 WBC 6.5 (4.8-10.8) X10*3/uL RBC 5.18 (4.20-5.50) X10*6/uL Hgb 14.5 (12.0-16.0) g/dl Hct 42.4 (37.0-47.0) % MCV 81.9 (80.0-98.0) fL MCH 28.0 (27.0-33.0) pg MCHC 34.2 (31.0-35.0) g/dl RDW 15.5 (11.0-16.0) % Plt Count 221 (160-400) X10*3/uL MPV 10.0 (9.4-12.3) fL Immature Gran % (Auto) 0.9 H (0.0-0.4) % Neut % (Auto) 78.4 H (45-73) % Lymph % (Auto) 11.8 L (20-40) % Florence % (Auto) 7.7 (2-11) % Eos % (Auto) 0.6 (0-4) % Baso % (Auto) 0.6 (0-2) % Lymph # (Auto) 0.8 L (1.2-4.9) X10*3/uL Florence # (Auto) 0.5 (0.1-1.2) X10*3/uL Eos # (Auto) 0.0 (0.0-0.4) X10*3/uL Baso # (Auto) 0.0 (0.0-0.2) X10*3/uL Abs Immat Gran (auto) 0.06 H (0.00-0.03) X10*3/uL Absolute Neuts (auto) 5.1 (2.0-8.3) x10*3/uL Absolute Nucleated RBC 0.000 (0.0-0.012) X10*3/uL Nucleated RBC % (auto) 0.0 (0.0-0.2) /100WBC D-Dimer High Sensitivty 162 NG/ML VBG pH 7.49 H (7.32-7.43) VBG pCO2 29 mmHg VBG pO2 45 mmHg VBG HCO3 23 (22-26) mmol/L VBG O2 Saturation 71.0 % VBG Base Excess 1.0 mmol/L Sodium 142 (135-145) mmol/L Potassium 3.1 L (3.3-5.1) mmol/L Chloride 108 (96-108) mmol/L Carbon Dioxide 23 (22-29) mmol/L Anion Gap 14 (12-20) BUN 8 L (9-16) mg/dL Creatinine 0.57 (0.5-1.4) mg/dL Estim Creat Clear Calc 194.1 Estimated GFR > 60 Random Glucose 90 (60-115) mg/dL Lactic Acid 1.9 (0.5-2.0) mmol/L Calcium 8.8 D (8.4-10.2) mg/dL Phosphorus 1.3 L (2.7-4.5) mg/dL Magnesium 2.1 (1.6-2.6) mg/dL Total Bilirubin 1.2 H (0.0-1.0) mg/dL Direct Bilirubin 0.5 (0.0-0.5) mg/dL AST 60 H (5-31) U/L ALT 67 H (0-31) U/L Alkaline Phosphatase 52 (39-117) U/L Total Creatine Kinase 35 (26-140) U/L Troponin I High Sens 6.7 (<3.5-17.0) ng/L Total Protein 7.3 (6.5-8.0) g/dL Albumin 4.1 (3.5-5.0) g/dL Vitamin B12 775 (200-900) pg/mL Beta-Hydroxybutyrate 2.30 H (0.02-0.27) mmol/L Independent Interpretation I performed an independent interpretation of an: EKG Critical Care Time Critical Care Time Critical Care Time: Yes Total Critical Care Time: 40 Attestation: Time is exclusive of separately billable procedures. Time includes: direct patient care, patient reassessment, coordination of patient care, interpretation of data (laboratory data, pulse oximetry, arterial blood gases and chest xrays), review of patient's medical records, medical consultation and documentation of patient care. Procedures excluded from critical care time: central intravenous line placement and electrocardiography. Discharge Plan Discharge Clinical Impression: Hypophosphatemia, Neuropathy, H/O gastric sleeve, Hypokalemia Patient Disposition: Admitted As Inpatient Print Language: Welsh
--- NOTE | 2025-08-29 12:35 | ECG_ITS ---
Test Reason : FALL Blood Pressure : */* mmHG Vent. Rate : 76 BPM Atrial Rate : 76 BPM P-R Int : 146 ms QRS Dur : 86 ms QT Int : 352 ms P-R-T Axes : 29 17 7 degrees QTcB Int : 396 ms Normal sinus rhythm Normal ECG When compared with ECG of 26-Aug-2025 14:39, No significant change was found Referred By: Giovanna Berkowitz Electronically Signed By: SARAH NEUMANN MD
[2025-08-29 12:58] LABS: MANUAL DIFF FLAG NO
[2025-08-29 13:00] LABS: Venous Blood Gas Refer to POC result
[2025-08-29 13:01] LABS: VBG HCO3 23 mmol/L (22-26); VBG O2 % Saturation 71.0 %
[2025-08-29 13:03] LABS: Hematocrit 42.4 % (37.0-47.0); Hemoglobin 14.5 g/dl (12.0-16.0); Imm Gran Abs Auto 0.06 X10*3/uL (0.00-0.03); Imm Gran Pct Auto 0.9 % (0.0-0.4); Lymphocytes Absolute Auto 0.8 X10*3/uL (1.2-4.9); Mean Corpuscular HGB Conc 34.2 g/dl (31.0-35.0); Mean Corpuscular Hemoglobin 28.0 pg (27.0-33.0); Mean Corpuscular Volume 81.9 fL (80.0-98.0); NRBC Abs Auto 0.000 X10*3/uL (0.0-0.012); NRBC Pct Auto 0.0 /100WBC (0.0-0.2); Platelet Count 221 X10*3/uL (160-400); Red Blood Count 5.18 X10*6/uL (4.20-5.50); White Blood Count 6.5 X10*3/uL (4.8-10.8)
[2025-08-29 13:17] LABS: D Dimer High Sensitivity 162 NG/ML
[2025-08-29 13:19] LABS: Anion Gap 14 (12-20); Blood Urea Nitrogen 8 mg/dL (9-16); Calcium 8.8 mg/dL (8.4-10.2); Carbon Dioxide 23 mmol/L (22-29); Chloride 108 mmol/L (96-108); Creatinine Clr Calc Pharmacy 194.1; Estimated Glomerular Filt Rate > 60; Potassium 3.1 mmol/L (3.3-5.1); Sodium 142 mmol/L (135-145)
[2025-08-29 13:21] LABS: Alanine Aminotransferase 67 U/L (0-31); Albumin Level 4.1 g/dL (3.5-5.0); Alkaline Phosphatase 52 U/L (39-117); Aspartate Amino Transferase 60 U/L (5-31); Magnesium 2.1 mg/dL (1.6-2.6); Total Protein 7.3 g/dL (6.5-8.0)
[2025-08-29 13:28] LABS: Troponin-I High Sensitivity 6.7 ng/L (<3.5-17.0)
--- NOTE | 2025-08-29 13:59 | PC.NURSE ---
Pharmacy contacted for Potassium phosphate and folic acid doses. Awaiting arrival.
[2025-08-29] MEDS: Potassium Phosphate/NS 15 MMOL/250 ML PLAST..BAG 62.5 MMOL IV ×2 (14:25→19:06)
[2025-08-29 14:26] LABS: Vitamin B12 775 pg/mL (200-900)
[2025-08-29] MEDS: Thiamine HCL 100 MG in 0.9 % Sodium Chloride 100 ML 202 MG IV (14:27)
[2025-08-29 14:44] VITALS: BP 140/82; PULSE 74; RESP 16; O2SAT 97
--- NOTE | 2025-08-29 16:35 | PC.NURSE ---
Pt moved into ED17 for cardiac monitoring. Resting comfortably in bed, care ongoing.
--- NOTE | 2025-08-29 16:44 | PHA.MEDREC ---
Addendum entered by Alban Baxter, PharmChin 08/29/25 19:02: MED REC CHECKED BY [facility] Original Note: Pharmacy Consult ? Medication Reconciliation Pharmacy has completed the medication reconciliation. Patient was able to confirm all of her medications. Patient confirmed Vitamin D 1,250 mcg every Friday, last dose 08/22/25. Patient last had her medications yesterday.
[2025-08-29 17:47] VITALS: BP 161/96; PULSE 65; RESP 19; TEMP 36.6; O2SAT 97
--- NOTE | 2025-08-29 18:27 | PM.IMHP ---
History of Present Illness Date of Service: 08/29/25 Attending physician on admission: [facility] Chief Complaint: Fall at home Pt is a -year-old female with a PMH significant for HTN, GERD, mood disorder, and s/p recent gastric sleeve in 06/2025?who presents to the ED after fall at home. Pt reports that she has been feeling ?off? for the past week or so, and has had difficulty remembering many of the incidents that have transpired recently. Apparently was sent home from work on Friday of last week due to poor balance and having difficulty walking. Pt reports she has intermittently felt numbness and tingling on her face and upper right extremity, and more persistently on both lower legs. Reported to the ED on Friday of last week with similar symptoms, but pt reports not remembering that visit. This morning pt was speaking to her psychiatrist while lying on her bed. Pt then went to stand up when she reportedly could not feel her legs and then fell down, sliding to the floor without head strike or loss of consciousness. However, family at bedside report she was not responding or answering questions immediately after incident. Pt has been experiencing nausea and vomiting during this time and has been unable to eat or drink much. No chest pain or pressure. Denies fever or chills. No abdominal pain or diarrhea. In the ED pt's vitals were significant for tachypnea of 22 and hypertension of 157/80. Labs were significant for potassium 3.1, phosphorus 1.3, T bili 1.2, AST 60, ALT 67, and beta hydroxybutyrate 2.3. EKG demonstrated normal sinus rhythm without significant ST elevations or depressions. ED clinician reached out to bariatric surgery who suggested treating with vitamin B12, thiamine, and folic acid. Pt was also given IVF, gabapentin, ketorolac, and 30 millimoles of K-Phos. Pt is admitted to the hospital under observation for lower extremities numbness, tingling, and weakness in the setting of electrolyte abnormalities in a pt with recent bariatric surgery. Review of Systems Review of Systems: Negative except for that which is stated in the [facility] Medical History Annual physical exam Well woman exam with routine gynecological exam Morbid obesity with BMI of 60.0-69.9, adult Screening for cervical cancer Sleep apnea treated with nocturnal bilevel positive airway pressure (BPAP) Sleep apnea PCOS (polycystic ovarian syndrome) Migraines ADHD (attention deficit hyperactivity disorder) Depression GERD (gastroesophageal reflux disease) Morbid obesity Asthma High blood pressure Family History Maternal Grandmother Breast cancer Mother Diabetes Other HTN (hypertension) Surgical History S/P gastric sleeve procedure S/P tonsillectomy History of eye surgery Social History Household Members: None Housing: Apartment Are you a primary workforce investment act career manager to a significant other at home: No Do you presently have visiting nurse or other home services: No Alcohol intake: current Alcohol intake frequency: holidays/special occasions only Patient Tobacco Use Status: Never used Tobacco Smoked in Last 30 Days: No e-Cigarette/Vaping Use: Never Used Second Hand Smoke Exposure: No Use of substances other than those prescribed or required for medical reasons: No Advance Directives: No Advance Directives Information Provided: Yes Do you have a plan to hurt others: No Plan service: No Current occupational status: employed Cognitive needs: No Hearing needs: No Vision needs: Yes (Glasses) Meds Allergies Allergy/AdvReac Type Severity Reaction Status Date / Time cephalexin (From Keflex) Allergy Intermediate Redness of Verified 08/29/25 11:57 Skin doxycycline Allergy Intermediate Hives Verified 08/29/25 11:57 Penicillins Allergy Intermediate Hives, Verified 08/29/25 11:57 burning sensation Sulfa (Sulfonamide Allergy Intermediate Hives,palpa Verified 08/29/25 11:57 Antibiotics) tations Home Medications ?Medication ?Instructions ?Recorded ?Confirmed ?Last Taken ?Type levonorgestrel (Mirena) 1 device intrauterine ONCE 01/21/25 08/29/25 Unknown History cholecalciferol (vitamin D3) 1,250 1,250 mcg PO MO 08/29/25 08/29/25 08/22/25 History mcg (50,000 unit) capsule famotidine 20 mg tablet 20 mg PO DAILY 08/29/25 08/29/25 08/28/25 History ondansetron 4 mg disintegrating 4 mg PO Q12H PRN nausea and 08/29/25 08/29/25 Unknown History tablet vomiting pantoprazole 40 mg tablet,delayed 40 mg PO DAILY@0600 08/29/25 08/29/25 08/28/25 History release Physical Exam Vital Signs and Narrative: Vital Signs: Last Vital Signs Temp 97.8 F 08/29/25 17:47 Pulse 65 08/29/25 17:47 Resp 19 08/29/25 17:47 BP 161/96 H 08/29/25 17:47 Pulse Ox 97 08/29/25 17:47 O2 Del Method Room Air 08/29/25 17:47 BMI result Body Mass Index 49.6 General: AOx3, no acute distress Resp: CTA bilaterally CVS: S1, S2, RRR GI: +BS, NT, no distention Skin: Warm, dry Neuro: Cranial nerves II-XII grossly intact bilaterally. Motor grossly intact bilaterally. Sensation to light touch intact of face and upper extremities. Sensation to light touch diminished in lower extremities bilaterally. Global weakness of upper and lower extremities but appears symmetric. Negative pronator drift. Extremities: No edema Psych: Appropriate affect Results Labs 08/29/25 12:48 08/29/25 12:48 Labs: Laboratory Results - last 24 hr 08/29/25 08/29/25 08/29/25 12:48 12:56 13:30 MCV 81.9 MCH 28.0 MCHC 34.2 RDW 15.5 Plt Count 221 MPV 10.0 Immature Gran % (Auto) 0.9 H Neut % (Auto) 78.4 H Lymph % (Auto) 11.8 L Clay % (Auto) 7.7 Eos % (Auto) 0.6 Baso % (Auto) 0.6 Lymph # (Auto) 0.8 L Clay # (Auto) 0.5 Eos # (Auto) 0.0 Baso # (Auto) 0.0 Abs Immat Gran (auto) 0.06 H Absolute Neuts (auto) 5.1 Absolute Nucleated RBC 0.000 Nucleated RBC % (auto) 0.0 D-Dimer High Sensitivty 162 VBG pH 7.49 H VBG pCO2 29 VBG pO2 45 VBG HCO3 23 VBG O2 Saturation 71.0 VBG Base Excess 1.0 Anion Gap 14 Estim Creat Clear Calc 194.1 Estimated GFR > 60 Random Glucose 90 Lactic Acid 1.9 Calcium 8.8 D Phosphorus 1.3 L Magnesium 2.1 Total Bilirubin 1.2 H Direct Bilirubin 0.5 AST 60 H ALT 67 H Alkaline Phosphatase 52 Total Creatine Kinase 35 Troponin I High Sens 6.7 Total Protein 7.3 Albumin 4.1 Vitamin B12 775 Beta-Hydroxybutyrate 2.30 H Assessment and Plan (1) Hypophosphatemia: Status: Acute (2) Hypokalemia: Status: Acute Plan Pt is a -year-old female with a PMH significant for HTN, GERD, mood disorder, and s/p recent gastric sleeve in 06/2025?who presents to the ED after fall at home. Pt is admitted to the hospital under observation for lower extremities numbness, tingling, and weakness in the setting of electrolyte abnormalities in a pt with recent bariatric surgery. Hypophosphatemia, hypokalemia In the setting of N/V, reduced p.o. intake, recent gastric sleeve Supplemented in the ED Trend labs, supplement as necessary, antiemetics Monitor on telemetry Question of syncopal episode Likely in the setting of above Treat as above Monitor on telemetry Check orthostatics, PT consult Lower extremity numbness and tingling Likely secondary to electrolyte abnormalities Treat as above, continue gabapentin If symptoms persist, consider neurology consult HX of gastric sleeve 06/[address] Rossi Bariatric stage III diet Continue famotidine, pantoprazole, sucralfate HTN Continue lisinopril Mood disorder Continue sertraline Full Code Attending:?Dr. Hernandez DVT Prophylaxis: Lovenox Pt will be admitted to the hospital under observation for treatment and further evaluation of electrolyte abnormalities including hypokalemia and hypophosphatemia likely secondary to reduced p.o. intake, N/V, and recent bariatric surgery. Quality Stroke Does the patient have a stroke diagnosis?: No VTE Prior VTE?: No VTE Risk Level:: Medical - moderate - high VTE Device Contraindication: Treatment Not Indicated VTE Drug Contraindication: N/A - Med Ordered
[2025-08-29 20:07] VITALS: BP 164/97; PULSE 76; RESP 18; TEMP 36.6; O2SAT 99
[2025-08-29] MEDS: Sucralfate Oral Suspension 1 GM/10 ML ORAL.SUSP PO (21:07)
[2025-08-29 22:35] VITALS: BP 130/82; PULSE 73; RESP 18; TEMP 36.6; O2SAT 97
[2025-08-30] VITALS (9 sets, daily range): BP systolic 143–171; BP diastolic 76–104; PULSE 54–70; RESP 16–20; TEMP 36.2–37.3; O2SAT 94–100
--- NOTE | 2025-08-30 | EMG_ITS ---
Chief complaint: Weakness and numbness of all extremities Reason for referral: Rule out Guillain-Boles Syndrome Referred by: Lashae Romo MD Procedure done: Upper and lower extremities NCS Impression: Nerve conduction studies of the upper extremities: Mild carpal tunnel syndrome bilaterally slightly worse on the left. Otherwise normal motor and sensory nerve conduction velocities in the upper extremities including delayed responses. Nerve conduction studies of the lower extremities: Near complete motor axonal loss in the peroneal nerves bilaterally left worse than right with normal nerve conduction velocities and amplitudes in the tibial nerves. Absent H reflexes bilaterally. Absent sensory responses. 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 Clinical correlation is suggested. If a Guillain-Boles syndrome is strongly suspected then correlation with spinal fluid studies is recommended [facility]
--- NOTE | 2025-08-30 00:50 | PC.NURSE ---
Took over care at 23:00 from VINCENT Rodriguez, pt a&O, able to follow commands, denies any pain at this time, K+ replacement completed. pt being transferred to [facility] by Garbage WorkerJuan R Seo
[2025-08-30 06:40] LABS: Anion Gap 14 (12-20); Blood Urea Nitrogen 7 mg/dL (9-16); Calcium 9.0 mg/dL (8.4-10.2); Carbon Dioxide 24 mmol/L (22-29); Chloride 111 mmol/L (96-108); Creatinine Clr Calc Pharmacy 187.6; Estimated Glomerular Filt Rate > 60; Magnesium 2.2 mg/dL (1.6-2.6); Potassium 3.7 mmol/L (3.3-5.1); Sodium 145 mmol/L (135-145)
[2025-08-30 07:13] LABS: Appearance Urine Clear; Glucose Urine UA Negative (Negative); PH 6.5 (5.0-9.0); Specific Gravity - Urine 1.020 (1.005-1.025); UMIC TRIGGER UACC YES
[2025-08-30 07:27] LABS: Other Crystals Urine Present
[2025-08-30] MEDS: 0.9 % Sodium Chloride Flush 3 ML SYRINGE IVFLUSH ×2 (09:27→20:28)
[2025-08-30] MEDS: Sucralfate Oral Suspension 1 GM/10 ML ORAL.SUSP PO ×2 (09:46→20:28)
--- NOTE | 2025-08-30 12:41 | MHC.CARE ---
Met with pt in room 468 after CARE Team received consult. Pt appears her stated age and dressed in hospital attire. Pt?s eye contact was good and speech is within normal limits. Pt reported she feels ?okay.? Pt reported concerns with numbness/tingling in her hand and legs. Pt reported hx of anxiety and that she was prescribed Zoloft, however has since stopped. Pt reported she able to identify triggers for her anxiety and healthy coping skills. Pt did reported difficulty in remembering at times. Pt reported she had a therapist in the past, however there was an issue with her insurance. Pt reported she lives alone and reported she has been staying with her mother. Pt denied SI/HI/AH/VH. Pt denied any hx of self-harm. Pt denied any hx of mental health admissions. Pt reported sleep and appetite are okay. Pt declined any referrals/resources from the CARE Team. T/W spoke to Denia weight loss therapist, who reported prior to pt?s hospital admission, she met with pt via telehealth. Pt was reportedly anxious and emotionally distressed. Pt has been doing okay since her surgery. She reported pt has been experiencing dehydration within the past 2 weeks. Pt presented as anxious, worried and difficulty remembering the past couple days. Pt reported to her that she cannot feel her legs and felt tingling in her hands. Pt fell during this, resulting in 911 being called and pt transported to [facility]. Pt has a hx of binge eating. Collateral reported concerns for pt?s physical safety. She declined any concerns for pt?s crisis/mental health safety. Pt has a hx of anxiety and ADHD. T/W met with CHERYL Cortes to discuss case. He reported no concerns for pt or pt?s safety. He reported pt will be referred to neurology.
--- NOTE | 2025-08-30 13:09 | P.CONGS_ITS ---
History of Present Illness Consult details Consult date: 08/30/25 Narrative: 25 yo female who recently underwent a sleeve gastrectomy with Dr. Rossi 07/14/2025. Initially she did well but she then had increasing difficulty tolerating the nutrition plans given to her by our office due to complaints of nausea and reflux. She was seen in the ED 08/15/2025 with complaints of weakness and nausea. Was hydrated and able to be discharged. She reached out to me last week to ask about IV hydration so I arranged for her to receive IV fluids at the infusion center. Upon presentation to infusion center she had varying complaints prompting the IV nurse to escort her to the ED where she again received IV fluids and antiemetics. She had an appt with our provider yesterday who witnessed her (via video call) to have a fall. The patient reported inability to feel her legs, tingling sensations in her hands and feet, acid reflux with gagging, and two episodes of non-bloody emesis. She became increasingly overwhelmed and began hyperventilating. provider instructed pt and family to call 911 and pt was transported to [facility] via ambulance. Upon ED evaluation, she was found to be hypokalemic and hypophosphatemic. She continued to complain of numbness/tingling of extremities, difficulty walking, and inability to clearly remember the events of the last few days. Decision was made to admit pt to the medical service. Today, pt denies any abdominal pain. No N/V, able to tolerate fluids. She continues to have paresthesias of primarily lower extremities and also her hands. [facility] Past Medical History Medical History Annual physical exam Well woman exam with routine gynecological exam Morbid obesity with BMI of 60.0-69.9, adult Screening for cervical cancer Sleep apnea treated with nocturnal bilevel positive airway pressure (BPAP) Sleep apnea PCOS (polycystic ovarian syndrome) Migraines ADHD (attention deficit hyperactivity disorder) Depression GERD (gastroesophageal reflux disease) Morbid obesity Asthma High blood pressure Family History Family History Maternal Grandmother Breast cancer Mother Diabetes Other HTN (hypertension) Surgical History Surgical History S/P gastric sleeve procedure S/P tonsillectomy History of eye surgery Social History Social History Household Members: None Housing: Apartment Are you a primary lawn care specialist to a significant other at home: No Do you presently have visiting nurse or other home services: No Alcohol intake: current Alcohol intake frequency: holidays/special occasions only Patient Tobacco Use Status: Never used Tobacco Smoked in Last 30 Days: No e-Cigarette/Vaping Use: Never Used Second Hand Smoke Exposure: No Use of substances other than those prescribed or required for medical reasons: No Currently Displaying Signs/Symptoms of Drug Intoxication Withdrawal: No Advance Directives: No Advance Directives Information Provided: Yes Do you have a plan to hurt others: No Plan service: No Current occupational status: employed Cognitive needs: No Hearing needs: No Vision needs: Yes (Glasses) Meds Allergies Allergy/AdvReac Type Severity Reaction Status Date / Time cephalexin (From Keflex) Allergy Intermediate Redness of Verified 08/29/25 11:57 Skin doxycycline Allergy Intermediate Hives Verified 08/29/25 11:57 Penicillins Allergy Intermediate Hives, Verified 08/29/25 11:57 burning sensation Sulfa (Sulfonamide Allergy Intermediate Hives,palpa Verified 08/29/25 11:57 Antibiotics) tations Active Medications: Current Medications Acetaminophen (Acetaminophen 325 Mg Tablet) 650 mg PO Q6H PRN PRN Reason: Pain, Mild 1-3,fever,headache Albuterol Sulfate (Albuterol Sulfate 90 Mcg 8 Gm Inhaler) 1 puff INHALE QID PRN PRN Reason: shortness of breath or wheezing Calcium Carbonate (Calcium Carbonate 750 Mg Tab.Chew) 750 mg PO Q4H PRN PRN Reason: Heartburn Enoxaparin Sodium (Enoxaparin Sodium 40 Mg/0.4 Ml Syringe) 40 mg SUBCUT Q24H JUAN PABLO Last Admin: 08/29/25 21:00 Dose: 40 mg Famotidine (Famotidine 20 Mg Tablet) 20 mg PO DAILY JUAN PABLO Last Admin: 08/30/25 09:46 Dose: 20 mg Gabapentin (Gabapentin 300 Mg Capsule) 300 mg PO BEDTIME JUAN PABLO Last Admin: 08/29/25 21:07 Dose: 300 mg Lisinopril (Lisinopril 5 Mg Tablet) 5 mg PO DAILY JUAN PABLO; Protocol Last Admin: 08/30/25 09:28 Dose: 5 mg Magnesium Hydroxide (Milk Of Magnesia 30 Ml Oral.Susp) 30 ml PO DAILY PRN PRN Reason: Constipation Melatonin (Melatonin 3 Mg Tablet) 6 mg PO BEDTIME PRN PRN Reason: Insomnia Omeprazole (Omeprazole 20 Mg Capsule.Dr) 20 mg PO DAILY@0600 [facility] Last Admin: 08/30/25 05:48 Dose: 20 mg Ondansetron HCl (Ondansetron Hcl 4 Mg/2 Ml Vial) 4 mg IVPUSH Q8H PRN PRN Reason: Nausea and Vomiting Sertraline HCl (Sertraline Hcl 50 Mg Tablet) 50 mg PO DAILY [facility] Last Admin: 08/30/25 09:46 Dose: 50 mg Sodium Chloride (0.9 % Sodium Chloride Flush 3 Ml Syringe) 3 ml IVFLUSH QSHIFT [facility] Last Admin: 08/30/25 09:27 Dose: 3 ml Sucralfate (Sucralfate Oral Suspension 1 Gm/10 Ml Oral.Susp) 1 gm PO BID [facility] Last Admin: 08/30/25 09:46 Dose: 1 gm Home Medications ?Medication ?Instructions ?Recorded ?Confirmed ?Last Taken ?Type levonorgestrel (Mirena) 1 device intrauterine ONCE 0 01/21/25 08/29/25 Unknown History cholecalciferol (vitamin D3) 1,250 1,250 mcg PO MO 05/1808/29/25 08/22/25 History mcg (50,000 unit) capsule famotidine 20 mg tablet 20 mg PO DAILY 08/29/25 10/0 05/1808/28/25 History ondansetron 4 mg disintegrating 4 mg PO Q12H PRN nause a and 08/29/25 08/29/25 Unknown History tablet vomiting pantoprazole 40 mg tablet,delayed 40 mg PO DAILY@0600 08/29/25 08/29/25 08/28/25 History release Physical Exam 2 Vital Signs: Vital Signs: Last Vital Signs Temp 98.2 F 08/30/25 12:00 Pulse 69 08/30/25 12:00 Resp 20 08/30/25 12:00 BP 144/84 H 08/30/25 12:00 Pulse Ox 96 08/30/25 12:00 O2 Del Method Room Air 08/30/25 12:00 BMI result Body Mass Index 49.6 Const: General: cooperative, comfortable and no acute distress O rientation/consciousness: patient oriented x3 GI: Other: soft, nontender, nondistended Neuro: General: patient oriented x3 Results Labs 08/29/25 12:48 08/30/25 05:57 Labs: Abnormal lab results 08/29/25 08/30/25 08/30/25 Range/Units 12:48 05:57 06:57 Potassium 3.1 L (3.3-5.1) mmol/L Chloride 111 H (96-108) mmol/L BUN 8 L 7 L (9-16) mg/dL Phosphorus 1.3 L 4.7 H (2.7-4.5) mg/dL Total Bilirubin 1.2 H (0.0-1.0) mg/dL AST 60 H (5-31) U/L ALT 67 H (0-31) U/L Beta-Hydroxybutyrate 2.30 H (0.02-0.27) mmol/L Urine Protein 30 (1+) H (Neg-Trace) mg/dL Ur Leukocyte Esterase Trace H (Negative) BMP 08/29/25 08/30/25 12:48 05:57 Sodium 142 145 Potassium 3.1 L 3.7 Chloride 108 111 H Carbon Dioxide 23 24 BUN 8 L 7 L Creatinine 0.57 0.59 Calcium 8.8 D 9.0 Cardiac Enzymes 08/29/25 Range/Units 12:48 Total Creatine Kinase 35 (26-140) U/L Liver Function 08/29/25 Range/Units 12:48 Total Bilirubin 1.2 H (0.0-1.0) mg/dL Direct Bilirubin 0.5 (0.0-0.5) mg/dL AST 60 H (5-31) U/L ALT 67 H (0-31) U/L Alkaline Phosphatase 52 (39-117) U/L Albumin 4.1 (3.5-5.0) g/dL Urine 08/30/25 Range/Units 06:57 Urine Color Dark Yellow Urine Appearance Clear Urine pH 6.5 (5.0-9.0) Ur Specific Ora 1.020 (1.005-1.025) Urine Protein 30 (1+) H (Neg-Trace) mg/dL Urine Glucose (UA) Negative (Negative) mg/dL All other labs normal. Assessment and Plan (1) S/P laparoscopic sleeve gastrectomy: Status: Acute (2) Neuropathy: Status: Acute (3) Hypophosphatemia: Status: Acute (4) Hypokalemia: Status: Acute Plan 25yo female 6w postop from sleeve gastrectomy, admitted to medical service with neurologic complaints, electrolyte abnormalities, and complaints of N/V. Currently pt able to tolerate PO. Electrolyte abnormalities have improved. No concern for acute issue of abdomen. Recommendations: Bariatric stage 3 diet, protein drinks Neurology to see pt Requested involvement from psych/crisis team as there is a possible anxiety/panic component to pt's condition PPi and carafate Pt received folate, B12, and thiamine in ED Discussed with Dr. Rossi. Total time managing care of this patient today: 45 minutes. Procedures Date of Service Date of Service: 08/30/25
--- NOTE | 2025-08-30 14:36 | P.CNNE_ITS ---
History of Present Illness Data of Consult Service Date: 08/30/25 Primary Care Provider: Iraida Woodruff PA-C HPI Reason for consult: Numbness tingling and weakness in the legs and arms This is a 25-year-old female with a PMH significant for HTN, GERD, severe obstructive sleep apnea on CPAP BiPAP and migraines, she also has PCOS, mood disorder, and s/p recent gastric sleeve in 06/2025?who presents to the ED after a fall at home. She is a poor historian and does not seem to recall much of what has been going on in the last week or so. When asked if she had fallen she is not sure. Pt reports that she has been feeling ?off? for the past week or so, and has had difficulty remembering many of the incidents that have transpired recently. Apparently was sent home from work on Friday of last week due to poor balance and having difficulty walking. Pt reports she has intermittently felt numbness and tingling on her face and upper right extremity, and more persistently on both lower legs. Reported to the ED on Friday of last week with similar symptoms, but pt reports not remembering that visit. This morning pt was speaking to her psychiatrist while lying on her bed. Pt then went to stand up when she reportedly could not feel her legs and then fell down, sliding to the floor without head strike or loss of consciousness. However, family at bedside report she was not responding or answering questions immediately after incident. Pt has been experiencing nausea and vomiting during this time and has been unable to eat or drink much. No chest pain or pressure. Denies fever or chills. No abdominal pain or diarrhea. She says her legs feel worse than her hands although she has had some paresthesia in the hands before including her last outpatient visit to [facility] in [place] office 3 weeks ago. In the ED pt's vitals were significant for tachypnea of 22 and hypertension of 157/80. Labs were significant for potassium 3.1, phosphorus 1.3, T bili 1.2, AST 60, ALT 67, and beta hydroxybutyrate 2.3. EKG demonstrated normal sinus rhythm without significant ST elevations or depressions. ED clinician reached out to bariatric surgery who suggested treating with vitamin B12, thiamine, and folic acid. Pt was also given IVF, gabapentin, ketorolac, and 30 millimoles of K-Phos. Pt is admitted to the hospital under observation for lower extremities numbness, tingling, and weakness in the setting of electrolyte abnormalities in a pt with recent bariatric surgery. [facility] Past Medical History Medical History Annual physical exam Well woman exam with routine gynecological exam Morbid obesity with BMI of 60.0-69.9, adult Screening for cervical cancer Sleep apnea treated with nocturnal bilevel positive airway pressure (BPAP) Sleep apnea PCOS (polycystic ovarian syndrome) Migraines ADHD (attention deficit hyperactivity disorder) Depression GERD (gastroesophageal reflux disease) Morbid obesity Asthma High blood pressure Family History Family History Maternal Grandmother Breast cancer Mother Diabetes Other HTN (hypertension) Surgical History Surgical History S/P gastric sleeve procedure S/P tonsillectomy History of eye surgery Social History Social History Household Members: None Housing: Apartment Are you a primary customer care voice consultant to a significant other at home: No Do you presently have visiting nurse or other home services: No Alcohol intake: current Alcohol intake frequency: holidays/special occasions only Patient Tobacco Use Status: Never used Tobacco Smoked in Last 30 Days: No e-Cigarette/Vaping Use: Never Used Second Hand Smoke Exposure: No Use of substances other than those prescribed or required for medical reasons: No Currently Displaying Signs/Symptoms of Drug Intoxication Withdrawal: No Advance Directives: No Advance Directives Information Provided: Yes Do you have a plan to hurt others: No Plan service: No Current occupational status: employed Cognitive needs: No Hearing needs: No Vision needs: Yes (Glasses) Meds Allergies Allergy/AdvReac Type Severity Reaction Status Date / Time cephalexin (From Keflex) Allergy Intermediate Redness of Verified 08/29/25 11:57 Skin doxycycline Allergy Intermediate Hives Verified 08/29/25 11:57 Penicillins Allergy Intermediate Hives, Verified 08/29/25 11:57 burning sensation Sulfa (Sulfonamide Allergy Intermediate Hives,palpa Verified 08/29/25 11:57 Antibiotics) tations Active Medications: Current Medications Acetaminophen (Acetaminophen 325 Mg Tablet) 650 mg PO Q6H PRN PRN Reason: Pain, Mild 1-3,fever,headache Albuterol Sulfate (Albuterol Sulfate 90 Mcg 8 Gm Inhaler) 1 puff INHALE QID PRN PRN Reason: shortness of breath or wheezing Calcium Carbonate (Calcium Carbonate 750 Mg Tab.Chew) 750 mg PO Q4H PRN PRN Reason: Heartburn Enoxaparin Sodium (Enoxaparin Sodium 40 Mg/0.4 Ml Syringe) 40 mg SUBCUT Q24H [facility] Last Admin: 08/29/25 21:00 Dose: 40 mg Famotidine (Famotidine 20 Mg Tablet) 20 mg PO DAILY [facility] Last Admin: 08/30/25 09:46 Dose: 20 mg Gabapentin (Gabapentin 300 Mg Capsule) 300 mg PO BEDTIME [facility] Last Admin: 08/29/25 21:07 Dose: 300 mg Lisinopril (Lisinopril 5 Mg Tablet) 5 mg PO DAILY [facility]; Protocol Last Admin: 08/30/25 09:28 Dose: 5 mg Magnesium Hydroxide (Milk Of Magnesia 30 Ml Oral.Susp) 30 ml PO DAILY PRN PRN Reason: Constipation Melatonin (Melatonin 3 Mg Tablet) 6 mg PO BEDTIME PRN PRN Reason: Insomnia Omeprazole (Omeprazole 20 Mg Capsule.Dr) 20 mg PO DAILY@0600 [facility] Last Admin: 08/30/25 05:48 Dose: 20 mg Ondansetron HCl (Ondansetron Hcl 4 Mg/2 Ml Vial) 4 mg IVPUSH Q8H PRN PRN Reason: Nausea and Vomiting Sertraline HCl (Sertraline Hcl 50 Mg Tablet) 50 mg PO DAILY [facility] Last Admin: 08/30/25 09:46 Dose: 50 mg Sodium Chloride (0.9 % Sodium Chloride Flush 3 Ml Syringe) 3 ml IVFLUSH QSHIFT [facility] Last Admin: 08/30/25 09:27 Dose: 3 ml Sucralfate (Sucralfate Oral Suspension 1 Gm/10 Ml Oral.Susp) 1 gm PO BID [facility] Last Admin: 08/30/25 09:46 Dose: 1 gm Home Medications ?Medication ?Instructions ?Recorded ?Confirmed ?Last Taken ?Type levonorgestrel (Mirena) 1 device intrauterine ONCE 0 01/21/25 08/29/25 Unknown History cholecalciferol (vitamin D3) 1,250 1,250 mcg PO MO 05/1808/29/25 08/22/25 History mcg (50,000 unit) capsule famotidine 20 mg tablet 20 mg PO DAILY 08/29/25 10/05/1808/28/25 History ondansetron 4 mg disintegrating 4 mg PO Q12H PRN nause a and 08/29/25 08/29/25 Unknown History tablet vomiting pantoprazole 40 mg tablet,delayed 40 mg PO DAILY@0600 08/29/25 08/29/25 08/28/25 History release Physical Exam 2 Vital Signs: Vital Signs: Last Vital Signs Temp 98.2 F 08/30/25 12:00 Pulse 69 08/30/25 12:00 Resp 20 08/30/25 12:00 BP 144/84 H 08/30/25 12:00 Pulse Ox 96 08/30/25 12:00 O2 Del Method Room Air 08/30/25 12:00 BMI result Body Mass Index 49.6 Neuro: Other: She is alert and oriented with normal intellectual functions. She is very vague about her history. She follows commands. Speech and language functions are normal. Cranial nerves 2-12 are normal. Neck strength is normal. Upper extremity strength proximally is normal. Mild weakness in finger spread. In the lower extremities she has for over 5 strength proximally and distally her strength and dorsiflexors of the ankles is only 4-/5. She has areflexia throughout. Sensory exam is intact. Results Labs 08/29/25 12:48 08/30/25 05:57 Labs: BMP 08/30/25 05:57 Sodium 145 Potassium 3.7 Chloride 111 H Carbon Dioxide 24 BUN 7 L Creatinine 0.59 Calcium 9.0 Urine 08/30/25 Range/Units 06:57 Urine Color Dark Yellow Urine Appearance Clear Urine pH 6.5 (5.0-9.0) Ur Specific [place] 1.020 (1.005-1.025) Urine Protein 30 (1+) H (Neg-Trace) mg/dL Urine Glucose (UA) Negative (Negative) mg/dL Assessment and Plan (1) Acute motor neuropathy: Status: Acute Rule out Guillain-[place] syndrome. Rule out acute nutritional neuropathy related to recent gastric sleeve. Recommendation:4 limb nerve conduction study including H reflexes and F-waves. Spinal fluid analysis to see if there is an elevated CSF protein check vitamin levels. Lyme titers. Serum immunoelectrophoresis Procedures Date of Service Date of Service: 08/30/25
--- NOTE | 2025-08-30 14:38 | MHC.CM.PN ---
DOUGLAS 08/30/25, EMR REVIEWED PT W/SYNCOPAL EPISODE/ELECTROLYTE IMBALANCE AND RECENT GATRIC SLEEVE SURGERY, CM MET W/PT WHO REPORTS SHE LIVES ALONE, IS FULLY INDEP W/ALL CARE, USES A CPAP AND NO OTHER DME/NO HOME SERVICES, GOAL FOR DC IS HOME. PT VERIFIES PCP AND HCP ON FILE ARE CORRECT. DP: HOME SELF CARE W/PT ARRANGING FAMILY FOR TRANSPORT.
--- NOTE | 2025-08-30 16:14 | HO.PM.IMPN ---
Subjective Subjective Date of Service: 08/30/25 Interval History: Still with numbness and tingling in lower extremities Reports ate some food yesterday, nothing this morning for breakfast Continues to have difficulty remembering the events over the past few days Denies headache or any acute change in vision This morning bladder scan noted to be retaining 700 cc; received straight catheterization Has not urinated since Review of Systems Review of Systems: Yes all other systems are reviewed and are negative Physical Exam Exam: Exam: General: AOx3, no acute distress Resp: CTA bilaterally CVS: S1, S2, RRR GI: +BS, NT, no distention Skin: Warm, dry Neuro: Cranial nerves II-XII grossly intact bilaterally. Motor grossly intact bilaterally. Sensation of face and upper extremities preserved. Sensation to light touch reduced but symmetric in lower extremities. Extremities: No edema Psych: Appropriate affect Vital Signs: Vital Signs: Last Vital Signs Temp 98.2 F 08/30/25 12:00 Pulse 69 08/30/25 12:00 Resp 20 08/30/25 12:00 BP 144/84 H 08/30/25 12:00 Pulse Ox 96 08/30/25 12:00 O2 Del Method Room Air 08/30/25 12:00 BMI result Body Mass Index 49.6 Objective Data Active Medications Acetaminophen (Acetaminophen 325 Mg Tablet) 650 mg PO Q6H PRN PRN Reason: Pain, Mild 1-3,fever,headache Albuterol Sulfate (Albuterol Sulfate 90 Mcg 8 Gm Inhaler) 1 puff INHALE QID PRN PRN Reason: shortness of breath or wheezing Calcium Carbonate (Calcium Carbonate 750 Mg Tab.Chew) 750 mg PO Q4H PRN PRN Reason: Heartburn Enoxaparin Sodium (Enoxaparin Sodium 40 Mg/0.4 Ml Syringe) 40 mg SUBCUT Q24H [facility] Last Admin: 08/29/25 21:00 Dose: 40 mg Documented By: ALPHONSO-CHUCHO Famotidine (Famotidine 20 Mg Tablet) 20 mg PO DAILY [facility] Last Admin: 08/30/25 09:46 Dose: 20 mg Documented By: FIGDIAN Gabapentin (Gabapentin 300 Mg Capsule) 300 mg PO BEDTIME [facility] Last Admin: 08/29/25 21:07 Dose: 300 mg Documented By: ALPHONSO-CHUCHO Lisinopril (Lisinopril 5 Mg Tablet) 5 mg PO DAILY [facility]; Protocol Last Admin: 08/30/25 09:28 Dose: 5 mg Documented By: NATHANIELDIKLAUS Magnesium Hydroxide (Milk Of Magnesia 30 Ml Oral.Susp) 30 ml PO DAILY PRN PRN Reason: Constipation Melatonin (Melatonin 3 Mg Tablet) 6 mg PO BEDTIME PRN PRN Reason: Insomnia Omeprazole (Omeprazole 20 Mg Capsule.) 20 mg PO DAILY@0600 [facility] Last Admin: 08/30/25 05:48 Dose: 20 mg Documented By: FOGARTB Ondansetron HCl (Ondansetron Hcl 4 Mg/2 Ml Vial) 4 mg IVPUSH Q8H PRN PRN Reason: Nausea and Vomiting Sertraline HCl (Sertraline Hcl 50 Mg Tablet) 50 mg PO DAILY [facility] Last Admin: 08/30/25 09:46 Dose: 50 mg Documented By: NATHANIELDIKLAUS Sodium Chloride (0.9 % Sodium Chloride Flush 3 Ml Syringe) 3 ml IVFLUSH QSHIFT [facility] Last Admin: 08/30/25 09:27 Dose: 3 ml Documented By: NATHANIELDIKLAUS Sucralfate (Sucralfate Oral Suspension 1 Gm/10 Ml Oral.Susp) 1 gm PO BID [facility] Last Admin: 08/30/25 09:46 Dose: 1 gm Documented By: NATHANIELDIAN Labs 08/29/25 12:48 08/30/25 05:57 Labs: Laboratory Results - last 24 hr 08/30/25 08/30/25 05:57 06:57 Anion Gap 14 Estim Creat Clear Calc 187.6 Estimated GFR > 60 Random Glucose 70 Calcium 9.0 Phosphorus 4.7 H Magnesium 2.2 Urine Color Dark Yellow Urine Appearance Clear Urine pH 6.5 Ur Specific [place] 1.020 Urine Protein 30 (1+) H Urine Glucose (UA) Negative Urine Ketones 15 Urine Blood Negative Urine Nitrite Negative Ur Leukocyte Esterase Trace H Urine RBC 0-2 Urine WBC 0-5 Ur Squamous Epith Cells 0-2 Other Crystals Present Urine Bacteria None Seen Hyaline Casts 0-2 Assessment and Plan (1) Numbness and tingling of both legs: Status: Acute Plan Pt is a 25-year-old female with a PMH significant for HTN, GERD, mood disorder, and s/p recent gastric sleeve in 06/2025?who presents to the ED after fall at home. Pt is admitted to the hospital under observation for lower extremities numbness, tingling, and weakness in the setting of electrolyte abnormalities in a pt with recent bariatric surgery. Lower extremity numbness, tingling, and weakness Unclear etiology Neurology consult, recommend ruling out Guillain-[place] syndrome and acute nutritional neuropathy secondary to recent gastric sleeve Check 4 limb nerve conduction study including H reflexes and F-waves We will get lumbar puncture with spinal fluid analysis, including total CSF protein Check Lyme titer, serum immunofixation electrophoresis, folate, and vitamin levels: Vitamin B6, B7, B12, C, D, and E Continue gabapentin Acute urinary retention Bladder scan this morning 700cc; received straight cath Will place Rivera for now Hypophosphatemia, hypokalemia, resolved In the setting of N/V, reduced p.o. intake, recent gastric sleeve Supplemented in the ED Trend labs, supplement as necessary, antiemetics Monitor on telemetry Question of syncopal episode Likely in the setting of above Treat as above Monitor on telemetry Check orthostatics, PT consult HX of gastric sleeve 06/[address] Rossi Bariatric stage III diet Continue famotidine, pantoprazole, sucralfate HTN Continue lisinopril Mood disorder Continue sertraline Full Code DVT Prophylaxis: Lovenox Given that pt's symptoms have persisted and she will require additional workup including ruling out Guillain-[place] syndrome, pt will be made inpatient for additional workup and treatment. Quality Stroke Does the patient have a stroke diagnosis?: No VTE Prior VTE?: No VTE Risk Level:: Medical - moderate - high VTE Device Contraindication: Treatment Not Indicated VTE Drug Contraindication: N/A - Med Ordered
[2025-08-31 03:11] VITALS: BP 154/79; PULSE 73; RESP 18; TEMP 36.8; O2SAT 98
[2025-08-31 07:30] LABS: Anion Gap 15 (12-20); Blood Urea Nitrogen 6 mg/dL (9-16); Calcium 9.4 mg/dL (8.4-10.2); Carbon Dioxide 24 mmol/L (22-29); Chloride 109 mmol/L (96-108); Creatinine Clr Calc Pharmacy 187.6; Estimated Glomerular Filt Rate > 60; Potassium 3.5 mmol/L (3.3-5.1); Sodium 144 mmol/L (135-145)
[2025-08-31 08:04] LABS: Folate 3.9 ng/mL (> or = 4.0); Vitamin B12 > 2000 pg/mL (200-900)
[2025-08-31] MEDS: 0.9 % Sodium Chloride Flush 3 ML SYRINGE IVFLUSH ×3 (08:25→20:39)
[2025-08-31] MEDS: Sucralfate Oral Suspension 1 GM/10 ML ORAL.SUSP PO ×2 (08:41→20:33)
--- NOTE | 2025-08-31 11:05 | MHC.CM.PN ---
EMR REVIEWED, PER HOSPITALIST PT SWITCHED TO INPT AND WILL NEED WORK-UP FOR GUILLAIN-BARRE SYNDROME PER NEURO, IMM 08/31/25 DELIVERED TO BEDSIDE, CM WILL CONT TO FOLLOW DC NEEDS.
[2025-08-31 11:42] VITALS: BP 130/63; PULSE 83; RESP 20; TEMP 36.2; O2SAT 95
[2025-08-31 15:13] VITALS: BP 132/90; PULSE 78; RESP 18; TEMP 36.1; O2SAT 97
[2025-08-31 15:44] LABS: Lymphocytes CSF 50 %; Red Blood Cell CSF 1 MM*3; White Blood Cell CSF 3 MM*3
--- NOTE | 2025-08-31 16:50 | P.CNNE_ITS ---
History of Present Illness Data of Consult Service Date: 08/31/25 Primary Care Provider: Iraida Woodruff PA-C HPI Reason for consult: Numbness tingling and weakness in the legs and arms This is a 25-year-old female with a PMH significant for HTN, GERD, severe obstructive sleep apnea on CPAP BiPAP and migraines, she also has PCOS, mood disorder, and s/p recent gastric sleeve in 06/2025?who presented to the emergency department after a fall at home. She is experiencing lower extremity sensory loss, weakness L>R, and urinary retention. Her workup has so far included a 4 limb EMG study of the lumbar puncture. Findings on the EMG study support potential for an acute motor neuropathy. The lumbar puncture was obtained this afternoon and does show elevated proteins. I visited her today and she reports that her right lower extremity feels more weak than it yesterday and earlier this morning. Aside from this, she has not any other motor or sensory changesThat she can report. Review of Systems 2 Constitutional: Constitutional: Reports as per HPI Neurologic: Denies Abnormal speech present [facility] Past Medical History Medical History Annual physical exam Well woman exam with routine gynecological exam Morbid obesity with BMI of 60.0-69.9, adult Screening for cervical cancer Sleep apnea treated with nocturnal bilevel positive airway pressure (BPAP) Sleep apnea PCOS (polycystic ovarian syndrome) Migraines ADHD (attention deficit hyperactivity disorder) Depression GERD (gastroesophageal reflux disease) Morbid obesity Asthma High blood pressure Family History Family History Maternal Grandmother Breast cancer Mother Diabetes Other HTN (hypertension) Surgical History Surgical History S/P gastric sleeve procedure S/P tonsillectomy History of eye surgery Social History Social History Household Members: None Housing: Apartment Are you a primary certified social workers in health care to a significant other at home: No Do you presently have visiting nurse or other home services: No Alcohol intake: current Alcohol intake frequency: holidays/special occasions only Patient Tobacco Use Status: Never used Tobacco Smoked in Last 30 Days: No e-Cigarette/Vaping Use: Never Used Second Hand Smoke Exposure: No Use of substances other than those prescribed or required for medical reasons: No Currently Displaying Signs/Symptoms of Drug Intoxication Withdrawal: No Advance Directives: No Advance Directives Information Provided: Yes Do you have a plan to hurt others: No Plan service: No Current occupational status: employed Cognitive needs: No Hearing needs: No Vision needs: Yes (Glasses) Meds Allergies Allergy/AdvReac Type Severity Reaction Status Date / Time cephalexin (From Keflex) Allergy Intermediate Redness of Verified 08/29/25 11:57 Skin doxycycline Allergy Intermediate Hives Verified 08/29/25 11:57 Penicillins Allergy Intermediate Hives, Verified 08/29/25 11:57 burning sensation Sulfa (Sulfonamide Allergy Intermediate Hives,palpa Verified 08/29/25 11:57 Antibiotics) tations Active Medications: Current Medications Acetaminophen (Acetaminophen 325 Mg Tablet) 650 mg PO Q6H PRN PRN Reason: Pain, Mild 1-3,fever,headache Albuterol Sulfate (Albuterol Sulfate 90 Mcg 8 Gm Inhaler) 1 puff INHALE QID PRN PRN Reason: shortness of breath or wheezing Calcium Carbonate (Calcium Carbonate 750 Mg Tab.Chew) 750 mg PO Q4H PRN PRN Reason: Heartburn Enoxaparin Sodium (Enoxaparin Sodium 40 Mg/0.4 Ml Syringe) 40 mg SUBCUT Q24H [facility] Last Admin: 08/30/25 20:28 Dose: 40 mg Famotidine (Famotidine 20 Mg Tablet) 20 mg PO DAILY [facility] Last Admin: 08/31/25 08:41 Dose: 20 mg Gabapentin (Gabapentin 300 Mg Capsule) 300 mg PO BEDTIME [facility] Last Admin: 08/30/25 20:28 Dose: 300 mg Lisinopril (Lisinopril 10 Mg Tablet) 10 mg PO DAILY [facility]; Protocol Last Admin: 08/31/25 08:41 Dose: 10 mg Magnesium Hydroxide (Milk Of Magnesia 30 Ml Oral.Susp) 30 ml PO DAILY PRN PRN Reason: Constipation Melatonin (Melatonin 3 Mg Tablet) 6 mg PO BEDTIME PRN PRN Reason: Insomnia Multivitamins/Vitamin C (Multivitamin Tablet) 1 tab PO DAILY [facility] Last Admin: 08/31/25 08:41 Dose: 1 tab Omeprazole (Omeprazole 20 Mg Capsule.Dr) 20 mg PO DAILY@0600 [facility] Last Admin: 08/31/25 06:26 Dose: 20 mg Ondansetron HCl (Ondansetron Hcl 4 Mg/2 Ml Vial) 4 mg IVPUSH Q8H PRN PRN Reason: Nausea and Vomiting Sertraline HCl (Sertraline Hcl 50 Mg Tablet) 50 mg PO DAILY [facility] Last Admin: 08/31/25 08:41 Dose: 50 mg Sodium Chloride (0.9 % Sodium Chloride Flush 3 Ml Syringe) 3 ml IVFLUSH QSHIFT [facility] Last Admin: 08/31/25 08:25 Dose: 3 ml Sucralfate (Sucralfate Oral Suspension 1 Gm/10 Ml Oral.Susp) 1 gm PO BID [facility] Last Admin: 08/31/25 08:41 Dose: 1 gm Home Medications ?Medication ?Instructions ?Recorded ?Confirmed ?Last Taken ?Type levonorgestrel (Mirena) 1 device intrauterine ONCE 0 01/21/25 08/29/25 Unknown History cholecalciferol (vitamin D3) 1,250 1,250 mcg PO MO 05/1808/29/25 08/22/25 History mcg (50,000 unit) capsule famotidine 20 mg tablet 20 mg PO DAILY 08/29/25 10/05/1808/28/25 History ondansetron 4 mg disintegrating 4 mg PO Q12H PRN nause a and 08/29/25 08/29/25 Unknown History tablet vomiting pantoprazole 40 mg tablet,delayed 40 mg PO DAILY@0600 08/29/25 08/29/25 08/28/25 History release Physical Exam 2 Vital Signs: Vital Signs: Last Vital Signs Temp 97.0 F 08/31/25 15:13 Pulse 78 08/31/25 15:13 Resp 18 08/31/25 15:13 BP 132/90 H 08/31/25 15:13 Pulse Ox 97 08/31/25 15:13 O2 Del Method Room Air 08/31/25 15:13 BMI result Body Mass Index 49.6 Const: Orientation/consciousness: oriented to person, oriented to place and oriented to time Neuro: General: oriented to person, oriented to place, oriented to time and Unable to assess gait Cranial nerves: Yes CN's II-XII intact bilaterally S peech: No Abnormal speech present Gait exam (Neuro): Unable to assess gait Motor exam (neuro): Abnormal motor strength present (Bilateral weakness with dorsiflexion 3/5.LLE weakness 4/5 at hip and knee) Sensory Exam: Upper extremity sensory exam abnormal (Normal sensation bilaterally to the upper extremities) and Abnormal lower extremity sensory exam (Increased sensitivity with light touch to the BLE causing discomfort) Deep tendon reflexes (DTR's): Right triceps reflex intensity grade: 0, Left triceps reflex intensity grade: 0, Rt Biceps (C5, C6): 2+, Left biceps reflex intensity grade: 0, Right brachioradialis reflex intensity grade: 0, Left brachioradialis reflex intensity grade: 0, Right patellar reflex intensity grade: 0, Left patellar reflex intensity grade: 0, Right ankle reflex intensity grade: 0 and Left ankle reflex intensity grade: 0 Plantar Reflex Responses: downgoing: bilateral Results Labs 08/29/25 12:48 08/31/25 06:41 Labs: BMP 08/31/25 06:41 Sodium 144 Potassium 3.5 Chloride 109 H Carbon Dioxide 24 BUN 6 L Creatinine 0.59 Calcium 9.4 Microbiology Microbiology Results: Microbiology 08/31/25 13:22 Cerebrospinal Fluid Gram Stain - Final 08/31/25 13:22 Cerebrospinal Fluid Fluid Description - Final Assessment and Plan (1) Acute motor neuropathy: Status: Acute Plan Acute onset of sensory and motor changes raising concern for possible GBS. EMG suports likelihood of GBS or other acute metabolic neuropathy. Lumbar puncture however with notably elevated proteins. This case was discussed with Dr. Romo who saw the patient yesterday and we are recommending initiation of weight based IVIG infusion for presumed GBS. Procedures Date of Service Date of Service: 08/31/25
--- NOTE | 2025-08-31 18:33 | P.PNIM_ITS ---
Subjective Subjective Date of Service: 08/31/25 Interval History: Continues to experience numbness, tingling, and weakness in lower extremities Is unable to move her feet Reports new heaviness and difficulty moving left upper extremity No SOB or difficulty breathing Previously had some difficulty seeing Underwent nerve conduction study and lumbar puncture today Review of Systems Review of Systems: Yes all other systems are reviewed and are negative Physical Exam 2 Exam: Exam: General: AOx3, no acute distress Resp: CTA bilaterally CVS: S1, S2, RRR GI: +BS, NT, no distention Skin: Warm, dry Neuro: Pt with significant lower extremity weakness bilaterally. Sensation of face and upper extremities preserved. Sensation to light touch reduced but symmetric in lower extremities. Extremities: No edema Psych: Appropriate affect Vital Signs: Vital Signs: Last Vital Signs Temp 97.0 F 08/31/25 15:13 Pulse 78 08/31/25 15:13 Resp 18 08/31/25 15:13 BP 132/90 H 08/31/25 15:13 Pulse Ox 97 08/31/25 15:13 O2 Del Method Room Air 08/31/25 15:13 BMI result Body Mass Index 49.6 Objective Data Active Medications Acetaminophen (Acetaminophen 325 Mg Tablet) 650 mg PO Q6H PRN PRN Reason: Pain, Mild 1-3,fever,headache Albuterol Sulfate (Albuterol Sulfate 90 Mcg 8 Gm Inhaler) 1 puff INHALE QID PRN PRN Reason: shortness of breath or wheezing Calcium Carbonate (Calcium Carbonate 750 Mg Tab.Chew) 750 mg PO Q4H PRN PRN Reason: Heartburn Enoxaparin Sodium (Enoxaparin Sodium 40 Mg/0.4 Ml Syringe) 40 mg SUBCUT Q24H [facility] Last Admin: 08/30/25 20:28 Dose: 40 mg Documented By: NED Famotidine (Famotidine 20 Mg Tablet) 20 mg PO DAILY [facility] Last Admin: 08/31/25 08:41 Dose: 20 mg Documented By: STEFANY Gabapentin (Gabapentin 300 Mg Capsule) 300 mg PO BEDTIME [facility] Last Admin: 08/30/25 20:28 Dose: 300 mg Documented By: NED Lisinopril (Lisinopril 10 Mg Tablet) 10 mg PO DAILY [facility]; Protocol Last Admin: 08/31/25 08:41 Dose: 10 mg Documented By: STEFANY Magnesium Hydroxide (Milk Of Magnesia 30 Ml Oral.Susp) 30 ml PO DAILY PRN PRN Reason: Constipation Melatonin (Melatonin 3 Mg Tablet) 6 mg PO BEDTIME PRN PRN Reason: Insomnia Multivitamins/Vitamin C (Multivitamin Tablet) 1 tab PO DAILY [facility] Last Admin: 08/31/25 08:41 Dose: 1 tab Documented By: STEFANY Omeprazole (Omeprazole 20 Mg Capsule.Dr) 20 mg PO DAILY@0600 [facility] Last Admin: 08/31/25 06:26 Dose: 20 mg Documented By: NED Ondansetron HCl (Ondansetron Hcl 4 Mg/2 Ml Vial) 4 mg IVPUSH Q8H PRN PRN Reason: Nausea and Vomiting Sertraline HCl (Sertraline Hcl 50 Mg Tablet) 50 mg PO DAILY [facility] Last Admin: 08/31/25 08:41 Dose: 50 mg Documented By: STEFANY Sodium Chloride (0.9 % Sodium Chloride Flush 3 Ml Syringe) 3 ml IVFLUSH QSHIFT [facility] Last Admin: 08/31/25 17:34 Dose: 3 ml Documented By: STEFANY Sucralfate (Sucralfate Oral Suspension 1 Gm/10 Ml Oral.Susp) 1 gm PO BID [facility] Last Admin: 08/31/25 08:41 Dose: 1 gm Documented By: STEFANY Labs 08/29/25 12:48 08/31/25 06:41 Labs: Laboratory Results - last 24 hr 08/31/25 08/31/25 08/31/25 06:41 13:22 13:22 Anion Gap 15 Estim Creat Clear Calc 187.6 Estimated GFR > 60 Random Glucose 67 Calcium 9.4 Phosphorus 4.0 Vitamin B12 > 2000 H 25-OH Vitamin D Total 27.5 L Folate 3.9 L CSF Tube Number 1 4 CSF Volume 6.5 CSF Appearance CLEAR CSF Color COLORLESS CSF WBC 3 CSF RBC 1 CSF Lymphocytes 50 CSF Monocytes % 50 CSF Appearance (b) Clear, Colorless CSF Glucose 47 CSF Total Protein 57.7 H Microbiology Microbiology Results: Microbiology 08/31/25 13:22 Gram Stain - Final Cerebrospinal Fluid Fluid Description - Final 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 Pt is admitted to the hospital under observation for lower extremities numbness, tingling, and weakness in the setting of electrolyte abnormalities in a pt with recent bariatric surgery. 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 intake, recent gastric sleeve Supplemented in the ED Trend labs, supplement as necessary, antiemetics Monitor on telemetry Question of syncopal episode Likely in the setting of above Treat as above Monitor on telemetry PT consult HX of gastric sleeve 06/[address] Rossi Bariatric stage III diet Continue famotidine, pantoprazole, sucralfate HTN Continue lisinopril Mood disorder Continue sertraline Full Code DVT Prophylaxis: Lovenox Pt will require continued hospitalization for treatment for presumed Guillain- [place] syndrome with IVIG x5 days. Pt will require close monitoring for response to therapies, including respiratory status. Quality Stroke Does the patient have a stroke diagnosis?: No VTE Prior VTE?: No VTE Risk Level:: Medical - moderate - high VTE Device Contraindication: Treatment Not Indicated VTE Drug Contraindication: N/A - Med Ordered
[2025-08-31 19:41] VITALS: BMI 48.1
[2025-08-31 19:48] VITALS: BP 156/68; PULSE 69; RESP 18; TEMP 36.2; O2SAT 96
[2025-08-31] MEDS: Immune Globulin 10% Gammagard 30 GM/300 ML VIAL IV (20:28)
[2025-08-31 23:43] VITALS: BP 148/65; PULSE 72; RESP 18; TEMP 36.1; O2SAT 98
[2025-09-01] MEDS: Immune Globulin 10% Gammagard 20 GM/200 ML VIAL IV ×2 (00:51→17:25)
[2025-09-01 04:00] VITALS: BP 136/91; PULSE 74; RESP 18; TEMP 36.6; O2SAT 95
[2025-09-01 05:58] LABS: Lyme Abs Screen <0.90 index
[2025-09-01 07:40] VITALS: BP 156/96; PULSE 69; RESP 18; TEMP 36.6; O2SAT 96
[2025-09-01] MEDS: Sucralfate Oral Suspension 1 GM/10 ML ORAL.SUSP PO ×2 (09:23→20:52)
[2025-09-01 11:40] VITALS: BP 129/93; PULSE 77; RESP 18; TEMP 36.5; O2SAT 97
--- NOTE | 2025-09-01 12:16 | ECG_ITS ---
Test Reason : CP Blood Pressure : */* mmHG Vent. Rate : 68 BPM Atrial Rate : 68 BPM P-R Int : 154 ms QRS Dur : 92 ms QT Int : 368 ms P-R-T Axes : 50 19 8 degrees QTcB Int : 391 ms Normal sinus rhythm Normal ECG When compared to the previous EKG of No significant changes seen Referred By: Makenzie Youngblood Electronically Signed By: SARAH NEUMANN MD
[2025-09-01 15:55] VITALS: BP 156/99; PULSE 71; RESP 18; TEMP 36.2; O2SAT 99
--- NOTE | 2025-09-01 16:45 | P.PNIM_ITS ---
Subjective Subjective Date of Service: 09/01/25 Interval History: Feels mildly improved, especially in right leg and foot Numbness and tingling in lower legs persists Some chest discomfort radiating to back Received first dose of IVIG last night Review of Systems Review of Systems: Yes all other systems are reviewed and are negative Physical Exam 2 Exam: Exam: General: AOx3, no acute distress Resp: CTA bilaterally CVS: S1, S2, RRR GI: +BS, NT, no distention Skin: Warm, dry Neuro: Pt with significant lower extremity weakness bilaterally, right now greater than left. Sensation of face and upper extremities preserved. Sensation to light touch reduced but symmetric in lower extremities. Extremities: No edema Psych: Appropriate affect Vital Signs: Vital Signs: Last Vital Signs Temp 97.2 F 09/01/25 15:55 Pulse 71 09/01/25 15:55 Resp 18 09/01/25 15:55 BP 156/99 H 09/01/25 15:55 Pulse Ox 99 09/01/25 15:55 O2 Del Method Room Air 09/01/25 15:55 BMI result Body Mass Index 48.1 Objective Data Active Medications Acetaminophen (Acetaminophen 325 Mg Tablet) 650 mg PO Q6H PRN PRN Reason: Pain, Mild 1-3,fever,headache Last Admin: 09/01/25 00:50 Dose: 650 mg Documented By: STACY Albuterol Sulfate (Albuterol Sulfate 90 Mcg 8 Gm Inhaler) 1 puff INHALE QID PRN PRN Reason: shortness of breath or wheezing Calcium Carbonate (Calcium Carbonate 750 Mg Tab.Chew) 750 mg PO Q4H PRN PRN Reason: Heartburn Enoxaparin Sodium (Enoxaparin Sodium 40 Mg/0.4 Ml Syringe) 40 mg SUBCUT Q24H [facility] Last Admin: 08/31/25 20:33 Dose: 40 mg Documented By: STACY Famotidine (Famotidine 20 Mg Tablet) 20 mg PO DAILY [facility] Last Admin: 09/01/25 09:23 Dose: 20 mg Documented By: EDDIE Folic Acid (Folic Acid 1 Mg Tablet) 1 mg PO DAILY [facility] Last Admin: 09/01/25 09:23 Dose: 1 mg Documented By: EDDIE Gabapentin (Gabapentin 300 Mg Capsule) 300 mg PO BEDTIME [facility] Last Admin: 08/31/25 20:33 Dose: 300 mg Documented By: STACY Immune Globulin (Gammagard 10%) 20 gm in 200 mls @ 63 mls/hr IV DAILY@1700 [facility] Stop: 09/04/25 20:11 Immune Globulin (Gammagard 10%) 30 gm in 300 mls @ 63 mls/hr IV DAILY@2100 [facility] Stop: 09/05/25 01:46 Lisinopril (Lisinopril 10 Mg Tablet) 10 mg PO DAILY [facility]; Protocol Last Admin: 09/01/25 09:23 Dose: 10 mg Documented By: EDDIE Magnesium Hydroxide (Milk Of Magnesia 30 Ml Oral.Susp) 30 ml PO DAILY PRN PRN Reason: Constipation Melatonin (Melatonin 3 Mg Tablet) 6 mg PO BEDTIME PRN PRN Reason: Insomnia Metoclopramide HCl (Metoclopramide Hcl 10 Mg/2 Ml Vial) 5 mg IVPUSH Q6H PRN PRN Reason: Nausea and Vomiting Multivitamins/Vitamin C (Multivitamin Tablet) 1 tab PO DAILY [facility] Last Admin: 09/01/25 09:23 Dose: 1 tab Documented By: EDDIE Omeprazole (Omeprazole 20 Mg Capsule.Dr) 20 mg PO DAILY@0600 [facility] Last Admin: 09/01/25 06:05 Dose: 20 mg Documented By: STACY Ondansetron HCl (Ondansetron Hcl 4 Mg/2 Ml Vial) 4 mg IVPUSH Q8H PRN PRN Reason: Nausea and Vomiting Sertraline HCl (Sertraline Hcl 50 Mg Tablet) 50 mg PO DAILY [facility] Last Admin: 09/01/25 09:23 Dose: 50 mg Documented By: EDDIE Sodium Chloride (0.9 % Sodium Chloride Flush 3 Ml Syringe) 3 ml IVFLUSH QSHIFT [facility] Last Admin: 09/01/25 13:38 Dose: Not Given Documented By: EDDIE Non-Admin Reason: Previously Administered Sucralfate (Sucralfate Oral Suspension 1 Gm/10 Ml Oral.Susp) 1 gm PO BID [facility] Last Admin: 09/01/25 09:23 Dose: 1 gm Documented By: EDDIE Labs 08/29/25 12:48 08/31/25 06:41 Labs: Laboratory Results - last 24 hr 08/31/25 06:41 Lyme Screen IgG & IgM <0.90 Lyme Progressive Test TNP Microbiology Microbiology Results: Microbiology 08/31/25 13:22 Gram Stain - Final Cerebrospinal Fluid Fluid Description - Final CSF Culture - Preliminary No growth after 1 day 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 Pt is admitted to the hospital under observation for lower extremities numbness, tingling, and weakness in the setting of electrolyte abnormalities in a pt with recent bariatric surgery. 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 Pt with lower extremity numbness, tingling, and weakness for the past week S/p recent gastric sleeve, though acute nutritional neuropathy less likely Lumbar puncture showing increased CSF protein; 4 limb nerve conduction study suggestive of acute motor neuropathy Additional workup still pending: Lyme titer, serum immunofixation electrophoresis, folate, and vitamin levels: Vitamin B6, B7, B12, C, D, and E Weight-based IVIG infusion x5 days initiated, day 2 PT consult Acute urinary retention Possibly in the setting of BGS Rivera in place Will attempt voiding trial at a later date Hypophosphatemia, hypokalemia, resolved In the setting of N/V, reduced p.o. intake, recent gastric sleeve Supplemented in the ED Trend labs, supplement as necessary, antiemetics Monitor on telemetry Question of syncopal episode Likely in the setting of above Treat as above Monitor on telemetry HX of gastric sleeve 06/[address] Rossi Bariatric stage III diet Continue famotidine, pantoprazole, sucralfate HTN Continue lisinopril Mood disorder Continue sertraline Full Code DVT Prophylaxis: Lovenox Pt will require continued hospitalization for treatment for presumed Guillain- [place] syndrome with IVIG x5 days. Pt will require close monitoring for response to therapies as well at respiratory status. Quality Stroke Does the patient have a stroke diagnosis?: No VTE Prior VTE?: No VTE Risk Level:: Medical - moderate - high VTE Device Contraindication: Treatment Not Indicated VTE Drug Contraindication: N/A - Med Ordered
[2025-09-01 20:00] VITALS: BP 139/83; PULSE 89; RESP 18; TEMP 37; O2SAT 98
[2025-09-01] MEDS: Immune Globulin 10% Gammagard 30 GM/300 ML VIAL IV (20:52)
[2025-09-01] MEDS: 0.9 % Sodium Chloride Flush 3 ML SYRINGE IVFLUSH (20:56)
[2025-09-02] VITALS (7 sets, daily range): BP systolic 136–169; BP diastolic 71–103; PULSE 58–94; RESP 16–20; TEMP 36.1–37; O2SAT 97–100
[2025-09-02] MEDS: 0.9 % Sodium Chloride Flush 3 ML SYRINGE IVFLUSH ×3 (11:05→23:44)
[2025-09-02] MEDS: Sucralfate Oral Suspension 1 GM/10 ML ORAL.SUSP PO ×2 (11:07→20:18)
--- NOTE | 2025-09-02 12:29 | MHC.CM.PN ---
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
--- NOTE | 2025-09-02 16:12 | HO.PM.IMPN ---
Subjective Subjective Date of Service: 09/02/25 Interval History: Continued improvement in right lower leg movement Little to no improvement in left lower leg movement No respiratory issues Has been tolerating diet; no N/V or significant abd pain Would like to advance bariatric 3 diet if possible Review of Systems Review of Systems: Yes all other systems are reviewed and are negative Physical Exam Exam: Exam: General: AOx3, no acute distress Resp: CTA bilaterally CVS: S1, S2, RRR GI: +BS, NT, no distention Skin: Warm, dry Neuro: Pt improved right lower extremity movement. Still with significant lower left extremity weakness. Sensation of face and upper extremities preserved. Sensation to light touch reduced but symmetric in lower extremities. Extremities: No edema Psych: Appropriate affect Vital Signs: Vital Signs: Last Vital Signs Temp 97.2 F 09/02/25 15:24 Pulse 94 09/02/25 15:24 Resp 18 09/02/25 15:24 BP 145/71 H 09/02/25 15:24 Pulse Ox 98 09/02/25 15:24 O2 Del Method Room Air 09/02/25 15:24 BMI result Body Mass Index 48.1 Objective Data Active Medications Acetaminophen (Acetaminophen 325 Mg Tablet) 650 mg PO Q6H PRN PRN Reason: Pain, Mild 1-3,fever,headache Last Admin: 09/01/25 20:52 Dose: 650 mg Documented By: STACY Albuterol Sulfate (Albuterol Sulfate 90 Mcg 8 Gm Inhaler) 1 puff INHALE QID PRN PRN Reason: shortness of breath or wheezing Calcium Carbonate (Calcium Carbonate 750 Mg Tab.Chew) 750 mg PO Q4H PRN PRN Reason: Heartburn Enoxaparin Sodium (Enoxaparin Sodium 40 Mg/0.4 Ml Syringe) 40 mg SUBCUT Q24H [facility] Last Admin: 09/01/25 20:52 Dose: 40 mg Documented By: STACY Famotidine (Famotidine 20 Mg Tablet) 20 mg PO DAILY [facility] Last Admin: 09/02/25 11:07 Dose: 20 mg Documented By: HEAVEN Folic Acid (Folic Acid 1 Mg Tablet) 1 mg PO DAILY [facility] Last Admin: 09/02/25 11:07 Dose: 1 mg Documented By: HEAVEN Gabapentin (Gabapentin 300 Mg Capsule) 300 mg PO BEDTIME [facility] Last Admin: 09/01/25 20:52 Dose: 300 mg Documented By: STACY Immune Globulin (Gammagard 10%) 20 gm in 200 mls @ 63 mls/hr IV DAILY@1700 [facility] Stop: 09/04/25 20:11 Last Infusion: 09/01/25 21:46 Dose: Infused Documented By: STACY Immune Globulin (Gammagard 10%) 30 gm in 300 mls @ 63 mls/hr IV DAILY@2100 [facility] Stop: 09/05/25 01:46 Last Infusion: 09/02/25 01:50 Dose: Infused Documented By: STACY Lisinopril (Lisinopril 20 Mg Tablet) 20 mg PO DAILY [facility]; Protocol Last Admin: 09/02/25 11:07 Dose: 20 mg Documented By: HEAVEN Magnesium Hydroxide (Milk Of Magnesia 30 Ml Oral.Susp) 30 ml PO DAILY PRN PRN Reason: Constipation Melatonin (Melatonin 3 Mg Tablet) 6 mg PO BEDTIME PRN PRN Reason: Insomnia Metoclopramide HCl (Metoclopramide Hcl 10 Mg/2 Ml Vial) 5 mg IVPUSH Q6H PRN PRN Reason: Nausea and Vomiting Multivitamins/Vitamin C (Multivitamin Tablet) 1 tab PO DAILY [facility] Last Admin: 09/02/25 11:07 Dose: 1 tab Documented By: HEAVEN Omeprazole (Omeprazole 20 Mg Capsule.Dr) 20 mg PO DAILY@0600 [facility] Last Admin: 09/02/25 06:16 Dose: 20 mg Documented By: STACY Ondansetron HCl (Ondansetron Hcl 4 Mg/2 Ml Vial) 4 mg IVPUSH Q8H PRN PRN Reason: Nausea and Vomiting Sertraline HCl (Sertraline Hcl 50 Mg Tablet) 50 mg PO DAILY [facility] Last Admin: 09/02/25 11:07 Dose: 50 mg Documented By: HEAVEN Sodium Chloride (0.9 % Sodium Chloride Flush 3 Ml Syringe) 3 ml IVFLUSH QSHIFT [facility] Last Admin: 09/02/25 11:05 Dose: 3 ml Documented By: HEAVEN Sucralfate (Sucralfate Oral Suspension 1 Gm/10 Ml Oral.Susp) 1 gm PO BID [facility] Last Admin: 09/02/25 11:07 Dose: 1 gm Documented By: HEAVEN Labs 08/29/25 12:48 08/31/25 06:41 Microbiology Microbiology Results: Microbiology 08/31/25 13:22 Gram Stain - Final Cerebrospinal Fluid Fluid Description - Final CSF Culture - Preliminary No growth after 2 days 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 Pt is admitted to the hospital under observation for lower extremities numbness, tingling, and weakness in the setting of electrolyte abnormalities in a pt with recent bariatric surgery. Acute Guillain-[place] syndrome Pt with lower extremity numbness, tingling, and weakness for the past week S/p recent gastric sleeve, though acute nutritional neuropathy less likely Lumbar puncture showing increased CSF protein; 4 limb nerve conduction study suggestive of acute motor neuropathy Additional workup still pending: Lyme titer, serum immunofixation electrophoresis, folate, and vitamin levels: Vitamin B6, B7, B12, C, D, and E Weight-based IVIG infusion x5 days initiated; last dose on evening of 09/04 PT consult Acute urinary retention Possibly in the setting of BGS Rivera in place Will attempt voiding trial on Wednesday 09/05 Hypophosphatemia, hypokalemia, resolved In the setting of N/V, reduced p.o. intake, recent gastric sleeve Supplemented in the ED Trend labs, supplement as necessary, antiemetics Monitor on telemetry Question of syncopal episode Likely in the setting of above Treat as above Monitor on telemetry HX of gastric sleeve 06/[address] Rossi Bariatric stage III diet Continue famotidine, pantoprazole, sucralfate HTN Continue lisinopril Mood disorder Continue sertraline Full Code DVT Prophylaxis: Lovenox Pt will require continued hospitalization for treatment for presumed Guillain-[place] syndrome with IVIG x5 days. Pt will require close monitoring for response to therapies as well at respiratory status. Quality Stroke Does the patient have a stroke diagnosis?: No VTE Prior VTE?: No VTE Risk Level:: Medical - moderate - high VTE Device Contraindication: Treatment Not Indicated VTE Drug Contraindication: N/A - Med Ordered
[2025-09-02] MEDS: Immune Globulin 10% Gammagard 20 GM/200 ML VIAL IV (20:09)
[2025-09-02] MEDS: Immune Globulin 10% Gammagard 30 GM/300 ML VIAL IV (23:46)
[2025-09-03] VITALS (8 sets, daily range): BP systolic 130–144; BP diastolic 76–88; PULSE 59–83; RESP 16–21; TEMP 36–36.6; O2SAT 97–100
[2025-09-03] MEDS: Sucralfate Oral Suspension 1 GM/10 ML ORAL.SUSP PO ×2 (08:34→20:03)
[2025-09-03] MEDS: 0.9 % Sodium Chloride Flush 3 ML SYRINGE IVFLUSH ×3 (08:37→20:05)
--- NOTE | 2025-09-03 10:22 | PC.NURSE ---
patient is not taking any of the ordered PO protein shakes per orders, PA is aware and may trying to switch to something else.
[2025-09-03] MEDS: Butalb/Acetamin/Caff 50/325/40 TABLET 1 TAB PO ×2 (10:30→16:45)
--- NOTE | 2025-09-03 14:19 | MHC.CM.PN ---
CM MET WITH PT AND SISTER AT BEDSIDE THEY UNDERSTAND PT WILL NEED AR AND ASK THAT REFERRALS ALSO BE SENT TO [place] WHERE HER SISTER RESIDES REFERRAL EXPANDED
--- NOTE | 2025-09-03 16:46 | P.PNIM_ITS ---
Subjective Subjective Date of Service: 09/03/25 Interval History: Continued improvement with moving right leg Can move left leg [id number] but not lift Unable to dorsiflex or plantar flex Arms better; no upper extremity numbness or tingling Reports migraine headache Denies SOB or difficulty breathing Review of Systems Review of Systems: Yes all other systems are reviewed and are negative Physical Exam 2 Exam: Exam: General: AOx3, no acute distress Resp: CTA bilaterally CVS: S1, S2, RRR GI: +BS, NT, no distention Skin: Warm, dry Neuro: Improved right lower extremity movement with 4/5 strength. Still with significant lower left extremity weakness. Sensation of face and upper extremities preserved. Sensation to light touch reduced but symmetric in lower extremities. Strength preserved and symmetric, upper extremities. Extremities: No edema Psych: Appropriate affect Vital Signs: Vital Signs: Last Vital Signs Temp 97.2 F 09/03/25 15:34 Pulse 83 09/03/25 15:34 Resp 20 09/03/25 15:34 BP 132/76 09/03/25 15:34 Pulse Ox 100 09/03/25 15:34 O2 Del Method Room Air 09/03/25 15:34 BMI result Body Mass Index 48.1 Objective Data Active Medications Acetaminophen (Acetaminophen 325 Mg Tablet) 650 mg PO Q6H PRN PRN Reason: Pain, Mild 1-3,fever,headache Last Admin: 09/03/25 07:08 Dose: 650 mg Documented By: LISA Acetaminophen/Butalbital/Caffeine (Butalb/Acetamin/Caff 50/325/40 Tablet) 1 tab PO Q4H PRN PRN Reason: Migraine Headache Last Admin: 09/03/25 16:45 Dose: 1 tab Documented By: STEFANY Albuterol Sulfate (Albuterol Sulfate 90 Mcg 8 Gm Inhaler) 1 puff INHALE QID PRN PRN Reason: shortness of breath or wheezing Calcium Carbonate (Calcium Carbonate 750 Mg Tab.Chew) 750 mg PO Q4H PRN PRN Reason: Heartburn Enoxaparin Sodium (Enoxaparin Sodium 40 Mg/0.4 Ml Syringe) 40 mg SUBCUT Q24H [facility] Last Admin: 09/02/25 20:07 Dose: 40 mg Documented By: LISA Famotidine (Famotidine 20 Mg Tablet) 20 mg PO DAILY [facility] Last Admin: 09/03/25 08:35 Dose: 20 mg Documented By: DAMIÁN Folic Acid (Folic Acid 1 Mg Tablet) 1 mg PO DAILY [facility] Last Admin: 09/03/25 08:35 Dose: 1 mg Documented By: DAMIÁN Gabapentin (Gabapentin 300 Mg Capsule) 300 mg PO BEDTIME [facility] Last Admin: 09/02/25 20:08 Dose: 300 mg Documented By: LISA Immune Globulin (Gammagard 10%) 20 gm in 200 mls @ 63 mls/hr IV DAILY@2000 [facility] Stop: 09/04/25 23:11 Last Infusion: 09/02/25 23:35 Dose: Infused Documented By: LISA Immune Globulin (Gammagard 10%) 30 gm in 300 mls @ 63 mls/hr IV DAILY@2300 [facility] Stop: 09/05/25 03:46 Last Infusion: 09/03/25 04:34 Dose: Infused Documented By: LISA Lisinopril (Lisinopril 20 Mg Tablet) 20 mg PO DAILY [facility]; Protocol Last Admin: 09/03/25 08:35 Dose: 20 mg Documented By: DAMIÁN Magnesium Hydroxide (Milk Of Magnesia 30 Ml Oral.Susp) 30 ml PO DAILY PRN PRN Reason: Constipation Melatonin (Melatonin 3 Mg Tablet) 6 mg PO BEDTIME PRN PRN Reason: Insomnia Metoclopramide HCl (Metoclopramide Hcl 10 Mg/2 Ml Vial) 5 mg IVPUSH Q6H PRN PRN Reason: Nausea and Vomiting Multivitamins/Vitamin C (Multivitamin Tablet) 1 tab PO DAILY [facility] Last Admin: 09/03/25 08:35 Dose: 1 tab Documented By: DAMIÁN Omeprazole (Omeprazole 20 Mg Capsule.Dr) 20 mg PO DAILY@0600 [facility] Last Admin: 09/03/25 05:49 Dose: 20 mg Documented By: LISA Ondansetron HCl (Ondansetron Hcl 4 Mg/2 Ml Vial) 4 mg IVPUSH Q8H PRN PRN Reason: Nausea and Vomiting Last Admin: 09/03/25 07:07 Dose: 4 mg Documented By: LISA Sertraline HCl (Sertraline Hcl 50 Mg Tablet) 50 mg PO DAILY [facility] Last Admin: 09/03/25 08:35 Dose: 50 mg Documented By: DAMIÁN Sodium Chloride (0.9 % Sodium Chloride Flush 3 Ml Syringe) 3 ml IVFLUSH QSHIFT [facility] Last Admin: 09/03/25 08:37 Dose: 3 ml Documented By: DAMIÁN Sucralfate (Sucralfate Oral Suspension 1 Gm/10 Ml Oral.Susp) 1 gm PO BID [facility] Last Admin: 09/03/25 08:34 Dose: 1 gm Documented By: DAMIÁN Labs 08/29/25 12:48 08/31/25 06:41 Microbiology Microbiology Results: Microbiology 08/31/25 13:22 Gram Stain - Final Cerebrospinal Fluid Fluid Description - Final CSF Culture - Final No growth after 3 days. 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 Pt is admitted to the hospital under observation for lower extremities numbness, tingling, and weakness in the setting of electrolyte abnormalities in a pt with recent bariatric surgery. 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 Pt with lower extremity numbness, tingling, and weakness for the past week S/p recent gastric sleeve, though acute nutritional neuropathy less likely Lumbar puncture showing increased CSF protein; 4 limb nerve conduction study suggestive of acute motor neuropathy Lyme negative Additional workup still pending: serum immunofixation electrophoresis, and vitamin levels: Vitamin B6, B7, B12, C, D, and E Weight-based IVIG infusion x5 days initiated; last dose on evening of 09/04 PT consult Acute urinary retention Possibly in the setting of BGS Rivera in place Will attempt voiding trial on Wednesday 09/05 Hypophosphatemia, hypokalemia, resolved In the setting of N/V, reduced p.o. intake, recent gastric sleeve Supplemented in the ED Trend labs, supplement as necessary, antiemetics Monitor on telemetry Question of syncopal episode Likely in the setting of above Treat as above Monitor on telemetry HX of gastric sleeve 06/[address] Rossi Bariatric stage III diet Continue famotidine, pantoprazole, sucralfate HTN Continue lisinopril Mood disorder Continue sertraline Full Code DVT Prophylaxis: Lovenox Pt will require continued hospitalization for treatment for presumed Guillain- [place] syndrome with IVIG x5 days. Pt will require close monitoring for response to therapies as well at respiratory status. Quality Stroke Does the patient have a stroke diagnosis?: No VTE Prior VTE?: No VTE Risk Level:: Medical - moderate - high VTE Device Contraindication: Treatment Not Indicated VTE Drug Contraindication: N/A - Med Ordered
[2025-09-03] MEDS: Immune Globulin 10% Gammagard 20 GM/200 ML VIAL IV (20:04)
[2025-09-03] MEDS: Immune Globulin 10% Gammagard 30 GM/300 ML VIAL IV (23:20)
[2025-09-04] VITALS (10 sets, daily range): BP systolic 125–156; BP diastolic 63–87; PULSE 63–96; RESP 16–20; TEMP 35.5–36.9; O2SAT 96–100
[2025-09-04] MEDS: Sucralfate Oral Suspension 1 GM/10 ML ORAL.SUSP PO ×2 (08:58→20:16)
[2025-09-04] MEDS: 0.9 % Sodium Chloride Flush 3 ML SYRINGE IVFLUSH ×3 (08:59→23:34)
--- NOTE | 2025-09-04 14:53 | HO.PM.IMPN ---
Subjective Subjective Date of Service: 09/04/25 Interval History: Pt with good improvement since yesterday Able to lift and move left lower extremity, though still with decreased movement at ankle and foot Improved numbness and tingling in lower extremities No numbness or tingling in upper extremities, though arms feel a little ?heavy? No SOB or difficulty breathing Review of Systems Review of Systems: Yes all other systems are reviewed and are negative Physical Exam Exam: Exam: General: AOx3, no acute distress Resp: CTA bilaterally CVS: S1, S2, RRR GI: +BS, NT, no distention Skin: Warm, dry Neuro: Improved right and lower extremity movement with 4/5 strength on right and 3/5 on left. Minimal dorsiflexion; no plantar flexiou. Sensation to light touch preserved on face, upper, and lower extremities bilaterally. Strength preserved and symmetric, upper extremities. Extremities: No edema Psych: Appropriate affect Vital Signs: Vital Signs: Last Vital Signs Temp 98.3 F 09/04/25 11:48 Pulse 96 09/04/25 11:48 Resp 16 09/04/25 11:48 BP 141/63 H 09/04/25 11:48 Pulse Ox 96 09/04/25 11:48 O2 Del Method Room Air 09/04/25 11:48 BMI result Body Mass Index 48.1 Objective Data Active Medications Acetaminophen (Acetaminophen 325 Mg Tablet) 650 mg PO Q6H PRN PRN Reason: Pain, Mild 1-3,fever,headache Last Admin: 09/03/25 07:08 Dose: 650 mg Documented By: LISA Acetaminophen/Butalbital/Caffeine (Butalb/Acetamin/Caff 50/325/40 Tablet) 1 tab PO Q4H PRN PRN Reason: Migraine Headache Last Admin: 09/03/25 16:45 Dose: 1 tab Documented By: STEFANY Albuterol Sulfate (Albuterol Sulfate 90 Mcg 8 Gm Inhaler) 1 puff INHALE QID PRN PRN Reason: shortness of breath or wheezing Calcium Carbonate (Calcium Carbonate 750 Mg Tab.Chew) 750 mg PO Q4H PRN PRN Reason: Heartburn Enoxaparin Sodium (Enoxaparin Sodium 40 Mg/0.4 Ml Syringe) 40 mg SUBCUT Q24H [facility] Last Admin: 09/03/25 20:03 Dose: 40 mg Documented By: GINNY Famotidine (Famotidine 20 Mg Tablet) 20 mg PO DAILY [facility] Last Admin: 09/04/25 08:59 Dose: 20 mg Documented By: DARCY Folic Acid (Folic Acid 1 Mg Tablet) 1 mg PO DAILY [facility] Last Admin: 09/04/25 08:59 Dose: 1 mg Documented By: DARCY Gabapentin (Gabapentin 300 Mg Capsule) 300 mg PO BEDTIME [facility] Last Admin: 09/03/25 20:04 Dose: 300 mg Documented By: GINNY Immune Globulin (Gammagard 10%) 20 gm in 200 mls @ 63 mls/hr IV DAILY@2000 [facility] Stop: 09/04/25 23:11 Last Infusion: 09/03/25 23:21 Dose: Infused Documented By: GINNY Immune Globulin (Gammagard 10%) 30 gm in 300 mls @ 63 mls/hr IV DAILY@2300 [facility] Stop: 09/05/25 03:46 Last Infusion: 09/04/25 04:20 Dose: Infused Documented By: GINNY Lisinopril (Lisinopril 20 Mg Tablet) 20 mg PO DAILY [facility]; Protocol Last Admin: 09/04/25 08:59 Dose: 20 mg Documented By: DARCY Magnesium Hydroxide (Milk Of Magnesia 30 Ml Oral.Susp) 30 ml PO DAILY PRN PRN Reason: Constipation Melatonin (Melatonin 3 Mg Tablet) 6 mg PO BEDTIME PRN PRN Reason: Insomnia Metoclopramide HCl (Metoclopramide Hcl 10 Mg/2 Ml Vial) 5 mg IVPUSH Q6H PRN PRN Reason: Nausea and Vomiting Multivitamins/Vitamin C (Multivitamin Tablet) 1 tab PO DAILY [facility] Last Admin: 09/04/25 08:59 Dose: 1 tab Documented By: DARCY Omeprazole (Omeprazole 20 Mg Capsule.Dr) 20 mg PO DAILY@0600 [facility] Last Admin: 09/04/25 05:37 Dose: 20 mg Documented By: GINNY Ondansetron HCl (Ondansetron Hcl 4 Mg/2 Ml Vial) 4 mg IVPUSH Q8H PRN PRN Reason: Nausea and Vomiting Last Admin: 09/03/25 07:07 Dose: 4 mg Documented By: HO.MASEREN Sertraline HCl (Sertraline Hcl 50 Mg Tablet) 50 mg PO DAILY [facility] Last Admin: 09/04/25 08:58 Dose: 50 mg Documented By: DARCY Sodium Chloride (0.9 % Sodium Chloride Flush 3 Ml Syringe) 3 ml IVFLUSH QSHIFT [facility] Last Admin: 09/04/25 08:59 Dose: 3 ml Documented By: DARYC Sucralfate (Sucralfate Oral Suspension 1 Gm/10 Ml Oral.Susp) 1 gm PO BID [facility] Last Admin: 09/04/25 08:58 Dose: 1 gm Documented By: DARCY Labs 08/29/25 12:48 08/31/25 06:41 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 Pt is admitted to the hospital under observation for lower extremities numbness, tingling, and weakness in the setting of electrolyte abnormalities in a pt with recent bariatric surgery. 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 Pt with lower extremity numbness, tingling, and weakness x1 week prior to presentation S/p recent gastric sleeve, though acute nutritional neuropathy ruled out Lumbar puncture showing increased CSF protein; 4 limb nerve conduction study suggestive of acute motor neuropathy Lyme negative Additional workup still pending: serum immunofixation electrophoresis, and vitamin levels: Vitamin B6, B7, B12, C, D, and E Weight-based IVIG infusion x5 days initiated; last dose schedule for evening of 09/04 Symptoms improving, but pt still unable to ambulate PT consult Acute urinary retention Possibly in the setting of BGS Rivera in place Will attempt voiding trial on Wednesday 09/05 Hypophosphatemia, hypokalemia, resolved In the setting of N/V, reduced p.o. intake, recent gastric sleeve Supplemented in the ED Trend labs, supplement as necessary, antiemetics Monitor on telemetry Question of syncopal episode Likely in the setting of above Treat as above Monitor on telemetry HX of gastric sleeve 06/[address] Rossi Bariatric stage III diet Continue famotidine, pantoprazole, sucralfate HTN Continue lisinopril Mood disorder Continue sertraline Full Code DVT Prophylaxis: Lovenox Pt will require continued hospitalization for treatment for presumed Guillain-[place] syndrome with IVIG x5 days. Pt will require close monitoring for response to therapies as well at respiratory status. Quality Stroke Does the patient have a stroke diagnosis?: No VTE Prior VTE?: No VTE Risk Level:: Medical - moderate - high VTE Device Contraindication: Treatment Not Indicated VTE Drug Contraindication: N/A - Med Ordered
[2025-09-04] MEDS: Immune Globulin 10% Gammagard 20 GM/200 ML VIAL IV (20:15)
[2025-09-04] MEDS: Immune Globulin 10% Gammagard 30 GM/300 ML VIAL IV (23:35)
[2025-09-05] VITALS (8 sets, daily range): BP systolic 108–135; BP diastolic 60–90; PULSE 78–86; RESP 18–97; TEMP 36–36.9; O2SAT 92–100
[2025-09-05] MEDS: 0.9 % Sodium Chloride Flush 3 ML SYRINGE IVFLUSH ×3 (08:42→20:10)
[2025-09-05] MEDS: Sucralfate Oral Suspension 1 GM/10 ML ORAL.SUSP PO ×2 (08:42→20:08)
--- NOTE | 2025-09-05 11:45 | P.PNIM_ITS ---
Subjective Subjective Date of Service: 09/05/25 Interval History: Improved sensation and mobility of the bilateral lower extremities, in particular the left foot. Patient denies any respiratory distress, difficulty with breathing. She denies any abdominal discomfort or pain. She does express discomfort with Rivera catheter in place, attempting trial later this afternoon Upper extremities strength remains intact, with normal sensation. Review of Systems Review of Systems: Yes all other systems are reviewed and are negative Physical Exam 2 Exam: Exam: General: A&O x3, oriented to time place person and situation, comfortable, no pain Cardiac: S1, S2 auscultated with no S3/4, no MRG. Well perfused. Respiratory: Normal breath sounds auscultated throughout all lung zones, without wheezing, rales. Normal rate. GI/ : No abdominal pain on palpation, no masses or distentions. MSK: Normal ambulation without pain at bony prominences or musculature Neurological: Bilateral lower extremity weakness below the level of the ankle, left weaker than right with plantar and dorsiflexion. Reduced sensation to light touch and deep touch bilateral feet. Otherwise normal neurological examination, with normal cranial nerves II-XII. Vital Signs: Vital Signs: Last Vital Signs Temp 97.5 F 09/05/25 08:00 Pulse 80 09/05/25 08:00 Resp 18 09/05/25 08:00 BP 125/88 09/05/25 08:00 Pulse Ox 100 09/05/25 08:00 O2 Del Method Room Air 09/05/25 08:00 BMI result Body Mass Index 48.1 Objective Data Active Medications Acetaminophen (Acetaminophen 325 Mg Tablet) 650 mg PO Q6H PRN PRN Reason: Pain, Mild 1-3,fever,headache Last Admin: 09/03/25 07:08 Dose: 650 mg Documented By: LISA Acetaminophen/Butalbital/Caffeine (Butalb/Acetamin/Caff 50/325/40 Tablet) 1 tab PO Q4H PRN PRN Reason: Migraine Headache Last Admin: 09/03/25 16:45 Dose: 1 tab Documented By: STEFANY Albuterol Sulfate (Albuterol Sulfate 90 Mcg 8 Gm Inhaler) 1 puff INHALE QID PRN PRN Reason: shortness of breath or wheezing Calcium Carbonate (Calcium Carbonate 750 Mg Tab.Chew) 750 mg PO Q4H PRN PRN Reason: Heartburn Enoxaparin Sodium (Enoxaparin Sodium 40 Mg/0.4 Ml Syringe) 40 mg SUBCUT Q24H [facility] Last Admin: 09/04/25 19:47 Dose: 40 mg Documented By: SHANEKA Famotidine (Famotidine 20 Mg Tablet) 20 mg PO DAILY [facility] Last Admin: 09/05/25 08:42 Dose: 20 mg Documented By: DARCY Folic Acid (Folic Acid 1 Mg Tablet) 1 mg PO DAILY [facility] Last Admin: 09/05/25 08:42 Dose: 1 mg Documented By: DARCY Gabapentin (Gabapentin 300 Mg Capsule) 300 mg PO BEDTIME [facility] Last Admin: 09/04/25 20:15 Dose: 300 mg Documented By: SHANEKA Lisinopril (Lisinopril 20 Mg Tablet) 20 mg PO DAILY [facility]; Protocol Last Admin: 09/05/25 08:42 Dose: 20 mg Documented By: DARCY Magnesium Hydroxide (Milk Of Magnesia 30 Ml Oral.Susp) 30 ml PO DAILY PRN PRN Reason: Constipation Melatonin (Melatonin 3 Mg Tablet) 6 mg PO BEDTIME PRN PRN Reason: Insomnia Last Admin: 09/04/25 20:15 Dose: 6 mg Documented By: SHANEKA Metoclopramide HCl (Metoclopramide Hcl 10 Mg/2 Ml Vial) 5 mg IVPUSH Q6H PRN PRN Reason: Nausea and Vomiting Multivitamins/Vitamin C (Multivitamin Tablet) 1 tab PO DAILY [facility] Last Admin: 09/05/25 08:42 Dose: 1 tab Documented By: DARCY Omeprazole (Omeprazole 20 Mg Capsule.Dr) 20 mg PO DAILY@0600 [facility] Last Admin: 09/05/25 05:55 Dose: 20 mg Documented By: SHANEKA Ondansetron HCl (Ondansetron Hcl 4 Mg/2 Ml Vial) 4 mg IVPUSH Q8H PRN PRN Reason: Nausea and Vomiting Last Admin: 09/03/25 07:07 Dose: 4 mg Documented By: LISA Sertraline HCl (Sertraline Hcl 50 Mg Tablet) 50 mg PO DAILY [facility] Last Admin: 09/05/25 08:42 Dose: 50 mg Documented By: DARCY Sodium Chloride (0.9 % Sodium Chloride Flush 3 Ml Syringe) 3 ml IVFLUSH QSHIFT [facility] Last Admin: 09/05/25 08:42 Dose: 3 ml Documented By: DARCY Sucralfate (Sucralfate Oral Suspension 1 Gm/10 Ml Oral.Susp) 1 gm PO BID [facility] Last Admin: 09/05/25 08:42 Dose: 1 gm Documented By: DARCY Labs 08/29/25 12:48 08/31/25 06:41 Labs: Laboratory Results - last 24 hr 08/31/25 06:41 IgG Total 1183 IgA Total 323 H IgM 86 ELIZABETH Interpretation Assessment and Plan (1) PCOS (polycystic ovarian syndrome): Status: Acute (2) Morbid obesity with BMI of 50.0-59.9, adult: Status: Acute (3) GERD (gastroesophageal reflux disease): Status: Acute (4) Steatosis, liver: Status: Acute (5) Hypokalemia: Status: Acute (6) Numbness and tingling in both hands: Status: Acute (7) 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 Acute GBS Bilateral lower extremity weakness, altered sensation. Patient reports episode of diarrheal illness 2 weeks prior to onset. Lumbar puncture revealed elevated CSF protein, -ve for infectious etiology. Limb nerve conduction study revealing acute motor neuropathy Lyme serology -ve Pending immunofixation electrophoresis studies. Received IVIG infusion x5 days Progressive improvement in symptoms has been noted PLAN - neurochecks q.4 hourly - physical therapy - occupational therapy - neurology following - pending immunofixation studies - vaccines contraindicated in outpatient setting Acute urinary retention 2/2 AcGBS Rivera catheter in place Voiding trial to be attempted today Gastric sleeve Hypophosphatemia Hypokalemia Nutritional deficiency Likely in the setting of gastric sleeve, as well as intolerance a p.o. diet/nausea/vomiting. Follows with Dr. Rossi Continue famotidine, pantoprazole, sucralfate HTN Continue lisinopril MDD/CANDE Continue sertraline [facility] [employer] - VTE: Enoxaparin - CODE STATUS: Full code - DIET: Regular Total time managing care of this patient today: 45 minutes. Quality Stroke Does the patient have a stroke diagnosis?: No VTE Prior VTE?: No VTE Risk Level:: Medical - moderate - high VTE Device Contraindication: Treatment Not Indicated VTE Drug Contraindication: N/A - Med Ordered
[2025-09-06 03:28] VITALS: BP 108/68; PULSE 84; RESP 17; TEMP 36.8; O2SAT 99
[2025-09-06 06:23] LABS: Hematocrit 42.1 % (37.0-47.0); Hemoglobin 13.4 g/dl (12.0-16.0); Imm Gran Abs Auto 0.02 X10*3/uL (0.00-0.03); Imm Gran Pct Auto 0.8 % (0.0-0.4); Lymphocytes Absolute Auto 0.8 X10*3/uL (1.2-4.9); MANUAL DIFF FLAG SCAN; Mean Corpuscular HGB Conc 31.8 g/dl (31.0-35.0); Mean Corpuscular Hemoglobin 27.2 pg (27.0-33.0); Mean Corpuscular Volume 85.4 fL (80.0-98.0); NRBC Abs Auto 0.000 X10*3/uL (0.0-0.012); NRBC Pct Auto 0.0 /100WBC (0.0-0.2); Platelet Count 192 X10*3/uL (160-400); Red Blood Count 4.93 X10*6/uL (4.20-5.50); SCAN SMEAR FLAG 1
[2025-09-06 06:29] LABS: White Blood Count 2.4 X10*3/uL (4.8-10.8)
[2025-09-06 06:41] LABS: Alanine Aminotransferase 119 U/L (0-31); Albumin Level 3.3 g/dL (3.5-5.0); Anion Gap 13 (12-20); Aspartate Amino Transferase 110 U/L (5-31); Blood Urea Nitrogen 10 mg/dL (9-16); Calcium 9.4 mg/dL (8.4-10.2); Carbon Dioxide 25 mmol/L (22-29); Chloride 103 mmol/L (96-108); Creatinine Clr Calc Pharmacy 178.0; Estimated Glomerular Filt Rate > 60; Potassium 4.0 mmol/L (3.3-5.1); Sodium 137 mmol/L (135-145); Total Protein 10.0 g/dL (6.5-8.0)
[2025-09-06 06:48] LABS: Alkaline Phosphatase 58 U/L (39-117)
[2025-09-06 07:38] VITALS: BP 135/83; PULSE 64; RESP 18; TEMP 37.2; O2SAT 100
[2025-09-06] MEDS: Sucralfate Oral Suspension 1 GM/10 ML ORAL.SUSP PO ×2 (08:35→20:47)
[2025-09-06] MEDS: 0.9 % Sodium Chloride Flush 3 ML SYRINGE IVFLUSH (08:36)
[2025-09-06] MEDS: Lactated Ringers 1,000 ML 100 ML IVCONT ×2 (11:54→22:53)
[2025-09-06 12:00] VITALS: BP 78/37; PULSE 72; RESP 18; TEMP 36.6; O2SAT 95
[2025-09-06 15:42] VITALS: BP 97/64; PULSE 95; RESP 18; TEMP 36.5; O2SAT 97
--- NOTE | 2025-09-06 15:53 | MHC.CM.PN ---
DENISE HAMEED, AND DYLON ARE FOLLOWING. OT EVALUATION IS NEEDED FOR AUTH TO ADMIT. PROVIDER AWARE AND ORDER IS PLACED.
[2025-09-06] MEDS: Lactated Ringers 500 ML 999 ML IV (17:10)
--- NOTE | 2025-09-06 17:49 | P.PNIM_ITS ---
Subjective Subjective Date of Service: 09/06/25 Interval History: Improved function of lower extremity. Sensation improved. Hypotensive today - tachycardic with orthostatics. Dizziness, no chest pain, palpitationsm, or LoC. Received 500cc LR bolus. Review of Systems Review of Systems: Yes all other systems are reviewed and are negative Physical Exam 2 Exam: Exam: General: A&O x3, oriented to time place person and situation, comfortable, no pain Cardiac: S1, S2 auscultated with no S3/4, no MRG. Well perfused. Respiratory: Normal breath sounds auscultated throughout all lung zones, without wheezing, rales. Normal rate. GI/ : No abdominal pain on palpation, no masses or distentions. MSK: Normal ambulation without pain at bony prominences or musculature Neurological: Bilateral lower extremity weakness below the level of the ankle, left weaker than right with plantar and dorsiflexion. Reduced sensation to light touch and deep touch bilateral feet. Otherwise normal neurological examination, with normal cranial nerves II-XII. Vital Signs: Vital Signs: Last Vital Signs Temp 97.7 F 09/06/25 15:42 Pulse 95 09/06/25 15:42 Resp 18 09/06/25 15:42 BP 97/64 09/06/25 15:42 Pulse Ox 97 09/06/25 15:42 O2 Del Method Room Air 09/06/25 15:42 O2 Flow Rate 11.9 09/06/25 03:28 FiO2 24 09/05/25 23:36 BMI result Body Mass Index 48.1 Objective Data Active Medications Acetaminophen (Acetaminophen 325 Mg Tablet) 650 mg PO Q6H PRN PRN Reason: Pain, Mild 1-3,fever,headache Last Admin: 09/06/25 04:23 Dose: 650 mg Documented By: NAM Acetaminophen/Butalbital/Caffeine (Butalb/Acetamin/Caff 50/325/40 Tablet) 1 tab PO Q4H PRN PRN Reason: Migraine Headache Last Admin: 09/03/25 16:45 Dose: 1 tab Documented By: STEFANY Albuterol Sulfate (Albuterol Sulfate 90 Mcg 8 Gm Inhaler) 1 puff INHALE QID PRN PRN Reason: shortness of breath or wheezing Calcium Carbonate (Calcium Carbonate 750 Mg Tab.Chew) 750 mg PO Q4H PRN PRN Reason: Heartburn Enoxaparin Sodium (Enoxaparin Sodium 40 Mg/0.4 Ml Syringe) 40 mg SUBCUT Q24H [facility] Last Admin: 09/05/25 20:07 Dose: 40 mg Documented By: NAM Famotidine (Famotidine 20 Mg Tablet) 20 mg PO DAILY [facility] Last Admin: 09/06/25 08:35 Dose: 20 mg Documented By: JUSTICE Folic Acid (Folic Acid 1 Mg Tablet) 1 mg PO DAILY [facility] Last Admin: 09/06/25 08:35 Dose: 1 mg Documented By: JUSTICE Gabapentin (Gabapentin 300 Mg Capsule) 300 mg PO BEDTIME [facility] Last Admin: 09/05/25 20:08 Dose: 300 mg Documented By: NAM Lactated Ringer's (Lr) 1,000 mls @ 100 mls/hr IVCONT .Q10H [facility] Last Infusion: 09/06/25 17:10 Dose: 0 mls/hr Documented By: JUSTICE Lactulose (Lactulose 20 Gm/30 Ml Solution) 20 gm PO DAILY PRN PRN Reason: Constipation Lisinopril (Lisinopril 20 Mg Tablet) 20 mg PO DAILY [facility]; Protocol Last Admin: 09/06/25 08:35 Dose: 20 mg Documented By: JUSTICE Magnesium Hydroxide (Milk Of Magnesia 30 Ml Oral.Susp) 30 ml PO DAILY PRN PRN Reason: Constipation Melatonin (Melatonin 3 Mg Tablet) 6 mg PO BEDTIME PRN PRN Reason: Insomnia Last Admin: 09/05/25 20:08 Dose: 6 mg Documented By: NAM Metoclopramide HCl (Metoclopramide Hcl 10 Mg/2 Ml Vial) 5 mg IVPUSH Q6H PRN PRN Reason: Nausea and Vomiting Multivitamins/Vitamin C (Multivitamin Tablet) 1 tab PO DAILY [facility] Last Admin: 09/06/25 08:35 Dose: 1 tab Documented By: JUSTICE Omeprazole (Omeprazole 20 Mg Capsule.Dr) 20 mg PO DAILY@0600 [facility] Last Admin: 09/06/25 04:23 Dose: 20 mg Documented By: NAM Ondansetron HCl (Ondansetron Hcl 4 Mg/2 Ml Vial) 4 mg IVPUSH Q8H PRN PRN Reason: Nausea and Vomiting Last Admin: 09/03/25 07:07 Dose: 4 mg Documented By: LISA Senna (Sennosides 8.6 Mg Tablet) 8.6 mg PO BEDTIME [facility] Sertraline HCl (Sertraline Hcl 50 Mg Tablet) 50 mg PO DAILY [facility] Last Admin: 09/06/25 08:35 Dose: 50 mg Documented By: JUSTICE Sodium Chloride (0.9 % Sodium Chloride Flush 3 Ml Syringe) 3 ml IVFLUSH QSHIFT [facility] Last Admin: 09/06/25 15:34 Dose: Not Given Documented By: JUSTICE Non-Admin Reason: IV Running Sucralfate (Sucralfate Oral Suspension 1 Gm/10 Ml Oral.Susp) 1 gm PO BID [facility] Last Admin: 09/06/25 08:35 Dose: 1 gm Documented By: JUSTICE Thiamine HCl (Thiamine Hcl 100 Mg Tablet) 100 mg PO DAILY [facility] Last Admin: 09/06/25 08:35 Dose: 100 mg Documented By: JUSTICE Labs 09/06/25 06:01 09/06/25 06:01 Labs: Laboratory Results - last 24 hr 08/31/25 09/06/25 06:44 06:01 MCV 85.4 MCH 27.2 MCHC 31.8 RDW 16.3 H Plt Count 192 MPV 11.0 Immature Gran % (Auto) 0.8 H Neut % (Auto) 49.1 Lymph % (Auto) 31.8 [place]lee % (Auto) 15.7 H Eos % (Auto) 1.3 Baso % (Auto) 1.3 Lymph # (Auto) 0.8 L [place] # (Auto) 0.4 Eos # (Auto) 0.0 Baso # (Auto) 0.0 Abs Immat Gran (auto) 0.02 Absolute Neuts (auto) 1.2 L Absolute Nucleated RBC 0.000 Nucleated RBC % (auto) 0.0 Smear Tech's Comments VERIFIED Smear Path Review SEE NOTE Anion Gap 13 Estim Creat Clear Calc 178.0 Estimated GFR > 60 Random Glucose 80 Calcium 9.4 Total Bilirubin 0.5 AST 110 H ALT 119 H Alkaline Phosphatase 58 Total Protein 10.0 H Albumin 3.3 L Alpha-Tocopherol Vit E 6.4 B- and G-Tocopherol <1.0 Assessment and Plan (1) PCOS (polycystic ovarian syndrome): Status: Acute (2) Morbid obesity with BMI of 50.0-59.9, adult: Status: Acute (3) S/P laparoscopic sleeve gastrectomy: Status: Acute (4) GERD (gastroesophageal reflux disease): Status: Acute (5) Steatosis, liver: Status: Acute (6) Hepatomegaly: Status: Acute (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 Acute GBS Bilateral lower extremity weakness, altered sensation. Patient reports episode of diarrheal illness 2 weeks prior to onset. Lumbar puncture revealed elevated CSF protein, -ve for infectious etiology. Limb nerve conduction study revealing acute motor neuropathy Lyme serology -ve Pending immunofixation electrophoresis studies. Received IVIG infusion x5 days Progressive improvement in symptoms has been noted PLAN - neurochecks q.4 hourly - physical therapy - occupational therapy - neurology following - pending immunofixation studies - vaccines contraindicated in outpatient setting Acute urinary retention 2/2 AcGBS Rivera catheter in place Voiding trial to be attempted today Gastric sleeve Hypophosphatemia Hypokalemia Nutritional deficiency Likely in the setting of gastric sleeve, as well as intolerance a p.o. diet/nausea/vomiting. Follows with Dr. Rossi Continue famotidine, pantoprazole, sucralfate HTN Continue lisinopril MDD/CANDE Continue sertraline QUALITY METRICS - VTE: Enoxaparin - CODE STATUS: Full code - DIET: Regular Total time managing care of this patient today: 35 minutes. Quality Stroke Does the patient have a stroke diagnosis?: No VTE Prior VTE?: No VTE Risk Level:: Medical - moderate - high VTE Device Contraindication: Treatment Not Indicated VTE Drug Contraindication: N/A - Med Ordered
[2025-09-06 19:45] VITALS: BP 160/70; PULSE 84; RESP 18; TEMP 36.8; O2SAT 98
[2025-09-06 23:19] VITALS: PULSE 73; RESP 18; O2SAT 96
[2025-09-07] VITALS (8 sets, daily range): BP systolic 100–157; BP diastolic 70–91; PULSE 61–100; RESP 17–18; TEMP 36–36.7; O2SAT 95–100
--- NOTE | 2025-09-07 05:34 | PC.NURSE ---
Pt. able to void into commode this morning, 200mls of dark owen urine. Bladder scanned for 0 mls. Pt. able to sit up on her own, and 2 assist to stand with use of chanda steady to commode.
[2025-09-07] MEDS: Sucralfate Oral Suspension 1 GM/10 ML ORAL.SUSP PO ×2 (09:27→19:28)
[2025-09-07] MEDS: Lactated Ringers 1,000 ML 100 ML IVCONT ×2 (09:28→19:26)
--- NOTE | 2025-09-07 09:59 | MHC.CM.PN ---
EMR REVIEWED, CM MET W/PT TO VERIFY PHONE NUMBER FOR [facility] COVER SEAMER HUSSAIN FERN REQUESTING TO MEET W/PT AT BEDSIDE PRIOR TO DC SHE WILL BE SETTING UP SERVICES FOR PT ONCE SHE GOES HOME, PT VERIFIES CELL PHONE AND REQUESTS CM ALSO GIVE HUSSAIN PT'S MOTHERS PHONE NUMBER WELL WHICH HAS BEEN DONE. PT AGREEABLE TO VISIT FROM HUSSAIN WHILE HERE IN. PT ALSO REQUESTS CM CONTACT MOM/HCP AMANDA [phone] TO DISCUSS DISPO, PT NO LONGER WANTS TO GO TO [facility] AND WANTS TO GO TO [facility] IN [place] SO AMANDA CAN VISIT, CM CONTACTED JANY WHO ALSO PREFERS [facility]. OT EVAL TO BE SENT ONCE COMPLETED.
--- NOTE | 2025-09-07 12:56 | P.PNNE_ITS ---
Subjective Subjective Date of Service: 09/07/25 Interval History: This is a 25-year-old female with a PMH significant for HTN, GERD, severe obstructive sleep apnea on CPAP BiPAP and migraines, she also has PCOS, mood disorder, and s/p recent gastric sleeve in 06/2025?who presented to the emergency department after a fall at home. She is experiencing lower extremity sensory loss, weakness L>R, and had some urinary retention. Her workup has included a 4 limb EMG study of the lumbar puncture. Findings on the EMG study support potential for an acute motor neuropathy. Her lumbar puncture did show an elevation in CSF protein. She has completed a course of IVIG and is currently stable. She tells me today that she has had some minor improvements in his now urinating on her own in the bedside commode. She does still have weakness and sensory changes to the lower extremities that she describes similarly to her previous visit last week. She denies any new sensory changes or new areas of focal weakness. Critical Care Time (minutes): 0 Physical Exam 2 Vital Signs: Vital Signs: Last Vital Signs Temp 97.9 F 09/07/25 11:41 Pulse 97 09/07/25 11:41 Resp 18 09/07/25 11:41 BP 100/74 09/07/25 11:41 Pulse Ox 96 09/07/25 11:41 O2 Del Method Room Air 09/07/25 11:41 O2 Flow Rate 5.2 09/07/25 03:23 FiO2 24 09/05/25 23:36 BMI result Body Mass Index 48.1 Const: Orientation/consciousness: oriented to person, oriented to place and oriented to time Neuro: General: oriented to person, oriented to place, oriented to time and Unable to assess gait Cranial nerves: Yes CN's II-XII intact bilaterally S peech: No Abnormal speech present Gait exam (Neuro): Unable to assess gait Motor exam (neuro): Abnormal motor strength present (Bilateral weakness with dorsiflexion 3/5.LLE weakness 4/5 at hip and knee) Sensory Exam: Upper extremity sensory exam abnormal (Normal sensation bilaterally to the upper extremities) and Abnormal lower extremity sensory exam (Increased sensitivity with light touch to the BLE causing discomfort) Deep tendon reflexes (DTR's): Right triceps reflex intensity grade: 0, Left triceps reflex intensity grade: 0, Rt Biceps (C5, C6): 2+, Left biceps reflex intensity grade: 0, Right brachioradialis reflex intensity grade: 0, Left brachioradialis reflex intensity grade: 0, Right patellar reflex intensity grade: 0, Left patellar reflex intensity grade: 0, Right ankle reflex intensity grade: 0 and Left ankle reflex intensity grade: 0 Plantar Reflex Responses: downgoing: bilateral Objective Data Labs 09/06/25 06:01 09/06/25 06:01 Microbiology Microbiology Results: Microbiology 08/31/25 13:22 Cerebrospinal Fluid Gram Stain - Final 08/31/25 13:22 Cerebrospinal Fluid Fluid Description - Final 08/31/25 13:22 Cerebrospinal Fluid CSF Culture - Final No growth after 3 days. Progress Note: A&P Assessment and plan (1) Acute motor neuropathy: Status: Acute Plan This is a 25-year-old female with a PMH significant for HTN, GERD, severe obstructive sleep apnea on CPAP BiPAP, migraines, PCOS, mood disorder, and s/p recent gastric sleeve in 06/2025?with presumed GBS with finding on EMG study and lumbar puncture supportive of this diagnosis. She has received a course of IVIG therapy and has had some minor improvements. Her exam is stable in comparison to her previous exam I performed last week. I think it is reasonable to discharge from hospital with supportive measures. She can follow-up with neurology outpatient where a repeat EMG study can be considered if indicated to evaluate for signs of improvement which would typically be seen in GBS. Time Spent With Patient Time: Total time managing care of this patient today ____ minutes. Procedures Date of Service Date of Service: 09/07/25 Quality Stroke Does the patient have a stroke diagnosis?: No VTE Prior VTE?: No VTE Risk Level:: Medical - moderate - high VTE Device Contraindication: Treatment Not Indicated VTE Drug Contraindication: N/A - Med Ordered
--- NOTE | 2025-09-07 19:20 | P.PNIM_ITS ---
Subjective Subjective Date of Service: 09/07/25 Interval History: Hemodynamically stable today, no episodes of hypotension and tachycardia. Patient has been eating and drinking well overall. Neurology has evaluated the patient, clearing her for discharge home, without requirement for further medications. Will follow up with the patient in the outpatient setting. as experienced progressive improvement in relation to lower extremity weakness and numbness Review of Systems Review of Systems: Yes all other systems are reviewed and are negative Physical Exam 2 Exam: Exam: General: A&O x3, oriented to time place person and situation, comfortable, no pain Cardiac: S1, S2 auscultated with no S3/4, no MRG. Well perfused. Respiratory: Normal breath sounds auscultated throughout all lung zones, without wheezing, rales. Normal rate. GI/ : No abdominal pain on palpation, no masses or distentions. MSK: Normal ambulation without pain at bony prominences or musculature Neurological: Bilateral lower extremity weakness below the level of the ankle, left weaker than right with plantar and dorsiflexion. Reduced sensation to light touch and deep touch bilateral feet. Otherwise normal neurological examination, with normal cranial nerves II-XII. Vital Signs: Vital Signs: Last Vital Signs Temp 97.8 F 09/07/25 19:04 Pulse 68 09/07/25 19:04 Resp 18 09/07/25 19:04 BP 157/91 H 09/07/25 19:04 Pulse Ox 98 09/07/25 19:04 O2 Del Method Room Air 09/07/25 19:04 O2 Flow Rate 5.2 09/07/25 03:23 FiO2 24 09/05/25 23:36 BMI result Body Mass Index 48.1 Objective Data Active Medications Acetaminophen (Acetaminophen 325 Mg Tablet) 650 mg PO Q6H PRN PRN Reason: Pain, Mild 1-3,fever,headache Last Admin: 09/06/25 04:23 Dose: 650 mg Documented By: KATHERINEARTClif Acetaminophen/Butalbital/Caffeine (Butalb/Acetamin/Caff 50/325/40 Tablet) 1 tab PO Q4H PRN PRN Reason: Migraine Headache Last Admin: 09/03/25 16:45 Dose: 1 tab Documented By: STEFANY Albuterol Sulfate (Albuterol Sulfate 90 Mcg 8 Gm Inhaler) 1 puff INHALE QID PRN PRN Reason: shortness of breath or wheezing Calcium Carbonate (Calcium Carbonate 750 Mg Tab.Chew) 750 mg PO Q4H PRN PRN Reason: Heartburn Enoxaparin Sodium (Enoxaparin Sodium 40 Mg/0.4 Ml Syringe) 40 mg SUBCUT Q24H [facility] Last Admin: 09/06/25 20:48 Dose: 40 mg Documented By: DARREN Famotidine (Famotidine 20 Mg Tablet) 20 mg PO DAILY [facility] Last Admin: 09/07/25 09:27 Dose: 20 mg Documented By: DAMIÁN Folic Acid (Folic Acid 1 Mg Tablet) 1 mg PO DAILY [facility] Last Admin: 09/07/25 09:27 Dose: 1 mg Documented By: DAMIÁN Gabapentin (Gabapentin 300 Mg Capsule) 300 mg PO BEDTIME [facility] Last Admin: 09/06/25 20:48 Dose: 300 mg Documented By: DARREN Lactated Ringer's (Lr) 1,000 mls @ 100 mls/hr IVCONT .Q10H [facility] Last Admin: 09/07/25 09:28 Dose: 100 mls/hr Documented By: DAMIÁN Lactulose (Lactulose 20 Gm/30 Ml Solution) 20 gm PO DAILY PRN PRN Reason: Constipation Lisinopril (Lisinopril 20 Mg Tablet) 20 mg PO DAILY [facility]; Protocol Last Admin: 09/07/25 09:43 Dose: 20 mg Documented By: DAMIÁN Magnesium Hydroxide (Milk Of Magnesia 30 Ml Oral.Susp) 30 ml PO DAILY PRN PRN Reason: Constipation Melatonin (Melatonin 3 Mg Tablet) 6 mg PO BEDTIME PRN PRN Reason: Insomnia Last Admin: 09/05/25 20:08 Dose: 6 mg Documented By: NAM Metoclopramide HCl (Metoclopramide Hcl 10 Mg/2 Ml Vial) 5 mg IVPUSH Q6H PRN PRN Reason: Nausea and Vomiting Multivitamins/Vitamin C (Multivitamin Tablet) 1 tab PO DAILY [facility] Last Admin: 09/07/25 09:27 Dose: 1 tab Documented By: DAMIÁN Omeprazole (Omeprazole 20 Mg Capsule.Dr) 20 mg PO DAILY@0600 [facility] Last Admin: 09/07/25 05:06 Dose: 20 mg Documented By: ANDRAEOIC Ondansetron HCl (Ondansetron Hcl 4 Mg/2 Ml Vial) 4 mg IVPUSH Q8H PRN PRN Reason: Nausea and Vomiting Last Admin: 09/03/25 07:07 Dose: 4 mg Documented By: LISA Senna (Sennosides 8.6 Mg Tablet) 8.6 mg PO BEDTIME [facility] Last Admin: 09/06/25 20:48 Dose: 8.6 mg Documented By: DARREN Sertraline HCl (Sertraline Hcl 50 Mg Tablet) 50 mg PO DAILY [facility] Last Admin: 09/07/25 09:27 Dose: 50 mg Documented By: DAMIÁN Sodium Chloride (0.9 % Sodium Chloride Flush 3 Ml Syringe) 3 ml IVFLUSH QSHIFT [facility] Last Admin: 09/07/25 09:37 Dose: Not Given Documented By: DAMIÁN Non-Admin Reason: IV Running Sucralfate (Sucralfate Oral Suspension 1 Gm/10 Ml Oral.Susp) 1 gm PO BID [facility] Last Admin: 09/07/25 09:27 Dose: 1 gm Documented By: DAMIÁN Thiamine HCl (Thiamine Hcl 100 Mg Tablet) 100 mg PO DAILY [facility] Last Admin: 09/07/25 09:27 Dose: 100 mg Documented By: DAMIÁN Labs 09/06/25 06:01 09/06/25 06:01 Assessment and Plan (1) Anxiety: Status: Acute (2) Depression: Status: Acute (3) High blood pressure: Status: Acute (4) Morbid obesity with BMI of 50.0-59.9, adult: Status: Acute (5) S/P laparoscopic sleeve gastrectomy: Status: Acute (6) H/O gastric sleeve: Status: Acute (7) GERD (gastroesophageal reflux disease): Status: Acute (8) Steatosis, liver: Status: Acute (9) Hypophosphatemia: Status: Acute (10) Hypokalemia: Status: Acute (11) Acute motor neuropathy: Status: Acute (12) Numbness and tingling of both legs: Status: Acute (13) 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 Acute GBS Bilateral lower extremity weakness, altered sensation. Patient reports episode of diarrheal illness 2 weeks prior to onset. Lumbar puncture revealed elevated CSF protein, -ve for infectious etiology. Limb nerve conduction study revealing acute motor neuropathy Lyme serology -ve Pending immunofixation electrophoresis studies. Received IVIG infusion x5 days Progressive improvement in symptoms has been noted PLAN - neurochecks q.4 hourly - physical therapy - occupational therapy - neurology following - pending immunofixation studies - vaccines contraindicated in outpatient setting Acute urinary retention 2/2 AcGBS Rivera catheter in place Voiding trial to be attempted today Gastric sleeve Hypophosphatemia Hypokalemia Nutritional deficiency Likely in the setting of gastric sleeve, as well as intolerance a p.o. diet/nausea/vomiting. Follows with Dr. Rossi Continue famotidine, pantoprazole, sucralfate HTN Continue lisinopril MDD/CANDE Continue sertraline QUALITY METRICS - VTE: Enoxaparin - CODE STATUS: Full code - DIET: Regular - DISPOSITION: Discharge to acute rehab tomorrow Total time managing care of this patient today: 45 minutes. Quality Stroke Does the patient have a stroke diagnosis?: No VTE Prior VTE?: No VTE Risk Level:: Medical - moderate - high VTE Device Contraindication: Treatment Not Indicated VTE Drug Contraindication: N/A - Med Ordered
[2025-09-07] MEDS: 0.9 % Sodium Chloride Flush 3 ML SYRINGE IVFLUSH (19:28)
[2025-09-08 03:10] VITALS: BP 143/89; PULSE 76; RESP 18; TEMP 36.6; O2SAT 98
[2025-09-08] MEDS: Lactated Ringers 1,000 ML 100 ML IVCONT (04:55)
[2025-09-08 07:48] VITALS: BP 132/90; PULSE 75; RESP 20; TEMP 36; O2SAT 100
[2025-09-08] MEDS: Sucralfate Oral Suspension 1 GM/10 ML ORAL.SUSP PO ×2 (08:59→20:24)
--- NOTE | 2025-09-08 11:39 | P.DS_ITS ---
DS: Providers Provider Date of Service: 09/08/25 Date of admission: 08/30/25 16:14 Date of discharge: 09/08/25 Primary care physician: Iraida Woodruff PA-C Consults: 08/30/25 09:10 Consult to Neurology Routine Consulting Provider: Neu[facility] Reason for consultation: New numbness, tingling, and weakness in legs 08/30/25 10:23 In CARE Team Crisis Consult Routine Comment: Reason for consultation: ?Disordered eating; bariatric counseling worried about her 09/07/25 07:48 Consult to Neurology Routine Consulting Provider: [facility] Reason for consultation: DC dependent; Ac.GBS? 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 PRESENTATION Pt reports that she has been feeling ?off? for the past week or so, and has had difficulty remembering many of the incidents that have transpired recently. Apparently was sent home from work on Friday of last week due to poor balance and having difficulty walking. Pt reports she has intermittently felt numbness and tingling on her face and upper right extremity, and more persistently on both lower legs. Reported to the ED on Friday of last week with similar symptoms, but pt reports not remembering that visit. This morning pt was speaking to her psychiatrist while lying on her bed. Pt then went to stand up when she reportedly could not feel her legs and then fell down, sliding to the floor without head strike or loss of consciousness. However, family at bedside report she was not responding or answering questions immediately after incident. Pt has been experiencing nausea and vomiting during this time and has been unable to eat or drink much. No chest pain or pressure. Denies fever or chills. No abdominal pain or diarrhea. In the ED pt's vitals were significant for tachypnea of 22 and hypertension of 157/80. Labs were significant for potassium 3.1, phosphorus 1.3, T bili 1.2, AST 60, ALT 67, and beta hydroxybutyrate 2.3. EKG demonstrated normal sinus rhythm without significant ST elevations or depressions. ED clinician reached out to bariatric surgery who suggested treating with vitamin B12, thiamine, and folic acid. Pt was also given IVF, gabapentin, ketorolac, and 30 millimoles of K-Phos. Pt is admitted to the hospital under observation for lower extremities numbness, tingling, and weakness in the setting of electrolyte abnormalities in a pt with recent bariatric surgery. Converted to inpatient. PROBLEM LIST Acute GBS Bilateral ascending lower extremity weakness, altered sensation. Patient reports episode of diarrheal illness 2 weeks prior to onset. Lumbar puncture revealed elevated CSF protein, -ve for infectious etiology. Limb nerve conduction study revealing consistency with acute motor neuropathy Lyme serology -ve Pending immunofixation electrophoresis studies. Received IVIG infusion x5 days Progressive improvement in symptoms has been noted post IVIG infusion. RECOMMENDATIONS - neurology following outpatient - pending immunofixation studies - vaccines contraindicated in outpatient setting Acute urinary retention 2/2 AcGBS Rivera catheter was placed; Voiding trial to be attempted and successful post improvement in neuropathy. Gastric sleeve Hypophosphatemia Hypokalemia Nutritional deficiency Likely in the setting of gastric sleeve, as well as intolerance a p.o. diet/nausea/vomiting. Follows with Dr. Rossi Continue famotidine, pantoprazole, sucralfate Thiamine Status at Discharge Functional status at discharge: uses cane/walker Overall status at discharge: patient is progressing back to baseline Time Attestation Total time managing care of this patient today: 45 mintues. Discharge Coordination Time (in mins): 30 Quality: Safe Use of Opioids Does Pt have an Active Cancer Diagnosis on the Problem List?: No Quality: Stroke Does the patient have a stroke diagnosis?: No Physical Exam Exam: Exam: General: A&O x3, oriented to time place person and situation, comfortable, no pain Cardiac: S1, S2 auscultated with no S3/4, no MRG. Well perfused. Respiratory: Normal breath sounds auscultated throughout all lung zones, without wheezing, rales. Normal rate. GI/ : No abdominal pain on palpation, no masses or distentions. MSK: Normal ambulation without pain at bony prominences or musculature Neurological: Bilateral lower extremity weakness below the level of the ankle, 4/5 + bilaterally on plantar, dorsiflexion. Reduced sensation to light touch and deep touch bilateral feet improving. Otherwise normal neurological examination, with normal cranial nerves II-XII. Vital Signs: Vital Signs: Last Vital Signs Temp 96.8 F 09/08/25 07:48 Pulse 75 09/08/25 07:48 Resp 20 09/08/25 07:48 BP 132/90 H 09/08/25 07:48 Pulse Ox 100 09/08/25 07:48 O2 Del Method Nasal Cannula 09/08/25 07:48 O2 Flow Rate 1 09/08/25 07:48 FiO2 24 09/05/25 23:36 BMI result Body Mass Index 48.1 DS: Data Data Completed and Pending Completed studies during hospitalization [Text1]: Procedures Excision of Stomach, Percutaneous Endoscopic Approach, Vertical (07/14/25) Discharge Plan Discharge Anticipated Discharge Date/Time: 09/08/25 13:57 Patient Disposition: Xfer Inpatient Rehab Fac Discharge Diagnosis: 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 c/b urinary retention Referrals: Iraida Woodruff PA-C [Primary Care Provider, Internal Medicine] - 1 Week Discharge Medications: New lisinopril 20 mg Tablet 20 mg PO DAILY 30 Days Qty: 30 0RF Protocol: Hold for SBP< HOLD for SBP < : 90 folic acid 1 mg Tablet 1 mg PO DAILY 30 Days Qty: 30 0RF thiamine mononitrate (vit B1) 100 mg Tablet 100 mg PO DAILY 30 Days Qty: 30 0RF Continued sertraline 50 mg tablet 50 mg PO DAILY Qty: 90 0RF famotidine 20 mg tablet 20 mg PO DAILY cholecalciferol (vitamin D3) 1,250 mcg (50,000 unit) capsule 1,250 mcg PO MO pantoprazole 40 mg tablet,delayed release (DR/EC) 40 mg PO DAILY@0600 ondansetron 4 mg tablet,disintegrating 4 mg PO Q12H PRN (Reason: nausea and vomiting) Rx Instructions: Only take one every 12 hours as needed if you have nausea gabapentin 100 mg capsule 300 mg PO BEDTIME MDD 300mg 60 Days Qty: 180 0RF sucralfate 100 mg/mL suspension 10 ml PO BID Qty: 600 2RF Mirena 21 mcg/24hr (up to 8 yrs) 52 mg intrauterine device 1 device intrauterine ONCE albuterol sulfate 90 mcg/actuation HFA aerosol inhaler 1 inh inhalation QID PRN (Reason: shortness of breath or wheezing) Qty: 8.5 1RF Discontinued lisinopril 5 mg tablet 5 mg PO DAILY Qty: 90 0RF Discharge Orders: Discharge Order (Routine); Ordered 09/08/25 Ordered By: Dorota Ross Diet: Advance to usual diet Activity on Discharge: As tolerated Stand Alone Forms: Patient Portal Discharge page Print Language: Wallisian Care Plan Goals: As above Health Concerns: As above Plan of Treatment: FU with Neurology within 1-2 week of discharge FU with PCP within 1 week of discharge FU with Dr. Raygoza in outpatient setting Assessment: Haemodynamically stable for discharge to STR Improvement in neurological function
[2025-09-08 12:00] VITALS: BP 118/76; PULSE 71; RESP 20; TEMP 36.8; O2SAT 98
--- NOTE | 2025-09-08 14:17 | MHC.CM.PN ---
IMM 09/08/25, PT MEDICALLY CLEARED FOR DC TO [facility] PENDING VERIFICATION OF AUTH, [facility] [phone] AT BEDSIDE AND REPORTS PT'S PORTAL SHOWS EXPECTED ADMISSION AT [facility], CM STILL AWAITING GO AHEAD FROM [facility] PREBOOKED FOR 4PM. PT REPORTS SOMEONE FROM WORK CALLED PT D/T BEING OUT, CM ATTEMPTED TO CONTACT [phone] HOWEVER UNABLE TO REACH [place] OR LEAVE MESSAGE, PT PROVIDED W/CM CARD SO SHE CAN GIVE CM CONTACT INFO TO HER BOSS AND THEY CAN CONTACT CM DIRECTLY. PT WILL FOLLOW UP W/FRAME POLISHER ONCE RELEASED FROM REHAB AND HAS BEEN INSTRUCTED TO WALK IN FOR NEW INTAKE M-F 8AM-8PM AND SAT/SUN 9AM-5PM EXCEPT HOLIDAYS AND FRI AFTER THANKSGIVING.
[2025-09-08 15:28] VITALS: BP 122/74; PULSE 72; RESP 20; TEMP 37.1; O2SAT 99
[2025-09-08 19:42] VITALS: BP 146/95; PULSE 83; RESP 20; TEMP 36.9; O2SAT 99
[2025-09-08 23:29] VITALS: BP 142/89; PULSE 94; RESP 18; TEMP 36.3; O2SAT 96
[2025-09-09 03:19] VITALS: BP 138/75; PULSE 87; RESP 18; TEMP 36.3; O2SAT 97
[2025-09-09 07:42] VITALS: BP 155/97; PULSE 86; RESP 20; TEMP 36.7; O2SAT 95
[2025-09-09] MEDS: Sucralfate Oral Suspension 1 GM/10 ML ORAL.SUSP PO (08:51)
--- NOTE | 2025-09-09 09:06 | P.DS_ITS ---
DS: Providers Provider Date of Service: 09/09/25 Date of admission: 08/30/25 16:14 Date of discharge: 09/09/25 Primary care physician: Iraida Woodruff PA-C Consults: 08/30/25 09:10 Consult to Neurology Routine Consulting Provider: [facility] Reason for consultation: New numbness, tingling, and weakness in legs 08/30/25 10:23 In CARE Team Crisis Consult Routine Comment: Reason for consultation: ?Disordered eating; bariatric counseling worried about her 09/07/25 07:48 Consult to Neurology Routine Consulting Provider: [facility] Reason for consultation: DC dependent; Ac.GBS? 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 PRESENTATION Pt reports that she has been feeling ?off? for the past week or so, and has had difficulty remembering many of the incidents that have transpired recently. Apparently was sent home from work on Friday of last week due to poor balance and having difficulty walking. Pt reports she has intermittently felt numbness and tingling on her face and upper right extremity, and more persistently on both lower legs. Reported to the ED on Friday of last week with similar symptoms, but pt reports not remembering that visit. This morning pt was speaking to her psychiatrist while lying on her bed. Pt then went to stand up when she reportedly could not feel her legs and then fell down, sliding to the floor without head strike or loss of consciousness. However, family at bedside report she was not responding or answering questions immediately after incident. Pt has been experiencing nausea and vomiting during this time and has been unable to eat or drink much. No chest pain or pressure. Denies fever or chills. No abdominal pain or diarrhea. In the ED pt's vitals were significant for tachypnea of 22 and hypertension of 157/80. Labs were significant for potassium 3.1, phosphorus 1.3, T bili 1.2, AST 60, ALT 67, and beta hydroxybutyrate 2.3. EKG demonstrated normal sinus rhythm without significant ST elevations or depressions. ED clinician reached out to bariatric surgery who suggested treating with vitamin B12, thiamine, and folic acid. Pt was also given IVF, gabapentin, ketorolac, and 30 millimoles of K-Phos. Pt is admitted to the hospital under observation for lower extremities numbness, tingling, and weakness in the setting of electrolyte abnormalities in a pt with recent bariatric surgery. Converted to inpatient. PROBLEM LIST Acute GBS Bilateral ascending lower extremity weakness, altered sensation. Patient reports episode of diarrheal illness 2 weeks prior to onset. Lumbar puncture revealed elevated CSF protein, -ve for infectious etiology. Limb nerve conduction study revealing consistency with acute motor neuropathy Lyme serology -ve Pending immunofixation electrophoresis studies. Received IVIG infusion x5 days Progressive improvement in symptoms has been noted post IVIG infusion. RECOMMENDATIONS - neurology following outpatient - pending immunofixation studies - vaccines contraindicated in outpatient setting Acute urinary retention 2/2 AcGBS Rivera catheter was placed; Voiding trial to be attempted and successful post improvement in neuropathy. Gastric sleeve Hypophosphatemia Hypokalemia Nutritional deficiency Likely in the setting of gastric sleeve, as well as intolerance a p.o. diet/nausea/vomiting. Follows with Dr. Rossi Continue famotidine, pantoprazole, sucralfate Thiamine Status at Discharge Functional status at discharge: uses cane/walker Overall status at discharge: patient is progressing back to baseline Time Attestation Total time managing care of this patient today: 35 mintues. Discharge Coordination Time (in mins): 15 Quality: Safe Use of Opioids Does Pt have an Active Cancer Diagnosis on the Problem List?: No Quality: Stroke Does the patient have a stroke diagnosis?: No Physical Exam Exam: Exam: General: A&O x3, oriented to time place person and situation, comfortable, no pain Cardiac: S1, S2 auscultated with no S3/4, no MRG. Well perfused. Respiratory: Normal breath sounds auscultated throughout all lung zones, without wheezing, rales. Normal rate. GI/ : No abdominal pain on palpation, no masses or distentions. MSK: Normal ambulation without pain at bony prominences or musculature Neurological: Bilateral lower extremity weakness below the level of the ankle, 4/5 + bilaterally on plantar, dorsiflexion. Reduced sensation to light touch and deep touch bilateral feet improving. Otherwise normal neurological examination, with normal cranial nerves II-XII. Vital Signs: Vital Signs: Last Vital Signs Temp 98.1 F 09/09/25 07:42 Pulse 86 09/09/25 07:42 Resp 20 09/09/25 07:42 BP 155/97 H 09/09/25 07:42 Pulse Ox 95 09/09/25 07:42 O2 Del Method Room Air 09/09/25 07:42 O2 Flow Rate 1 09/08/25 07:48 FiO2 24 09/05/25 23:36 BMI result Body Mass Index 48.1 DS: Data Data Completed and Pending Completed studies during hospitalization [Text1]: Procedures Excision of Stomach, Percutaneous Endoscopic Approach, Vertical (07/14/25) Labs on day of discharge: Laboratory Results - last 24 hr 08/31/25 06:44 Vitamin B6 2.4 Discharge Plan Discharge Anticipated Discharge Date/Time: 09/09/25 09:02 Patient Disposition: Xfer Inpatient Rehab Fac Discharge Diagnosis: 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 M-F 8AM-8PM SAT-SUN 9AM-5PM EXCEPT HOLIDAYS AND THEY ARE CLOSED THE FRIDAY AFTER THANKSGI. [facility] [Outside] - 1 Day Referral Note: [facility] Iraida Woodruff PA-C [Primary Care Provider, Internal Medicine] - 1 Week Discharge Medications: New lisinopril 20 mg Tablet 20 mg PO DAILY 30 Days Qty: 30 0RF Protocol: Hold for SBP< HOLD for SBP < : 90 folic acid 1 mg Tablet 1 mg PO DAILY 30 Days Qty: 30 0RF thiamine mononitrate (vit B1) 100 mg Tablet 100 mg PO DAILY 30 Days Qty: 30 0RF Continued sertraline 50 mg tablet 50 mg PO DAILY Qty: 90 0RF famotidine 20 mg tablet 20 mg PO DAILY cholecalciferol (vitamin D3) 1,250 mcg (50,000 unit) capsule 1,250 mcg PO MO pantoprazole 40 mg tablet,delayed release (DR/EC) 40 mg PO DAILY@0600 ondansetron 4 mg tablet,disintegrating 4 mg PO Q12H PRN (Reason: nausea and vomiting) Rx Instructions: Only take one every 12 hours as needed if you have nausea gabapentin 100 mg capsule 300 mg PO BEDTIME MDD 300mg 60 Days Qty: 180 0RF sucralfate 100 mg/mL suspension 10 ml PO BID Qty: 600 2RF Mirena 21 mcg/24hr (up to 8 yrs) 52 mg intrauterine device 1 device intrauterine ONCE albuterol sulfate 90 mcg/actuation HFA aerosol inhaler 1 inh inhalation QID PRN (Reason: shortness of breath or wheezing) Qty: 8.5 1RF Discontinued lisinopril 5 mg tablet 5 mg PO DAILY Qty: 90 0RF Discharge Orders: Discharge Order (Routine); Ordered 09/08/25 Ordered By: Dorota Ross Diet: Advance to usual diet Activity on Discharge: As tolerated Stand Alone Forms: Patient Portal Discharge page Print Language: Irish Care Plan Goals: As above Health Concerns: As above Plan of Treatment: FU with Neurology within 1-2 week of discharge FU with PCP within 1 week of discharge FU with Dr. Raygoza in outpatient setting Assessment: Haemodynamically stable for discharge to STR Improvement in neurological function
--- NOTE | 2025-09-09 09:11 | MHC.CM.PN ---
INSURANCE AUTH RECEIVED FOR PATIENT TO GO TO ACUTE REHAB AT [facility], SHE WILL TRANSPORT VIA BLS/[facility]. PATIENT IS AWARE AND IN AGREEMENT WITH HER DISCHARGE PLAN.
[2025-09-09 11:51] VITALS: BP 138/89; PULSE 85; RESP 20; TEMP 36.9; O2SAT 98
== END 2025-09-09 15:35 | DRG 95 ==
LOC: HO.ED 13:36 → HO.EDOVER 15:50 → HO.IMC 23:58
PROVIDERS: Admitting Provider Student in an Organized Health Care Education/Training Program; Emergency Provider Student in an Organized Health Care Education/Training Program; Visit Provider Hospitalist
DX: G61.0 Guillain-Barre syndrome (principal); Z68.42 Body mass index [BMI] 45.0-49.9, adult; E87.6 Hypokalemia; E66.01 Morbid (severe) obesity due to excess calories; F41.1 Generalized anxiety disorder; F32.9 Major depressive disorder, single episode, unspecified; R33.9 Retention of urine, unspecified; Z71.3 Dietary counseling and surveillance; E83.39 Other disorders of phosphorus metabolism; I10 Essential (primary) hypertension; Z98.84 Bariatric surgery status; Z79.899 Other long term (current) drug therapy
CPT/HCPCS: 36415; 62328; 71045; 80048; 80053; 80076; 81001; 82010; 82180; 82306; 82550; 82607; 82746; 82784; 82803; 82945; 83605; 83735; 84100; 84157; 84207; 84446; 84484; 84591; 85025; 85379; 86334; 86617; 86618; 87015; 87070; 87205; 89051; 93005; 94660; 95913; 97110; 97163; 97166; 97530; 99222; 99285; J1171; J1569; J1650; J1808; J1885; J2405; J3411; J3420; J7120

== ENCOUNTER → 2025-08-29 12:35 | Outpatient (BNV) | payer MEDICARE, SELFPAY | PROVIDERS: Emergency Provider Student in an Organized Health Care Education/Training Program; Visit Provider Internal Medicine Cardiovascular Disease | DX: R55 Syncope and collapse (principal) | CPT/HCPCS: 93010 ==

== ENCOUNTER → 2025-08-29 15:42 | Outpatient (BNV) | payer MEDICARE, SELFPAY | PROVIDERS: Admitting Provider Student in an Organized Health Care Education/Training Program; Emergency Provider Student in an Organized Health Care Education/Training Program; Visit Provider Student in an Organized Health Care Education/Training Program | DX: G61.0 Guillain-Barre syndrome (principal) | CPT/HCPCS: 99233 ==

== ENCOUNTER → 2025-08-29 15:42 | Outpatient (BNV) | payer MEDICARE, SELFPAY | PROVIDERS: Admitting Provider Student in an Organized Health Care Education/Training Program; Emergency Provider Student in an Organized Health Care Education/Training Program; Visit Provider Physician Assistant Surgical | DX: E83.39 Other disorders of phosphorus metabolism (principal); E87.6 Hypokalemia; G62.9 Polyneuropathy, unspecified; Z98.84 Bariatric surgery status | CPT/HCPCS: 99222 ==

== ENCOUNTER → 2025-08-29 15:42 | Outpatient (BNV) | payer MEDICARE, SELFPAY | PROVIDERS: Admitting Provider Student in an Organized Health Care Education/Training Program; Emergency Provider Student in an Organized Health Care Education/Training Program; Visit Provider Psychiatry & Neurology Neurology | DX: G62.81 Critical illness polyneuropathy (principal) | CPT/HCPCS: 99223 ==

== ENCOUNTER → 2025-08-30 15:30 | Outpatient (BNV) | payer MEDICARE, SELFPAY | PROVIDERS: Admitting Provider Student in an Organized Health Care Education/Training Program; Emergency Provider Student in an Organized Health Care Education/Training Program; Visit Provider Psychiatry & Neurology Neurology | DX: G57.83 Other specified mononeuropathies of bilateral lower limbs (principal); R53.1 Weakness | CPT/HCPCS: 95907 ==

== ENCOUNTER 2025-08-30 16:14 | Outpatient (BNV) | payer MEDICARE, SELFPAY | END 2025-08-31 13:00 | PROVIDERS: Admitting Provider Student in an Organized Health Care Education/Training Program; Emergency Provider Student in an Organized Health Care Education/Training Program; Visit Provider Radiology Diagnostic Radiology | DX: Z48.89 Encounter for other specified surgical aftercare (principal) | CPT/HCPCS: 62328 ==

== ENCOUNTER 2025-08-30 16:14 | Outpatient (BNV) | payer MEDICARE, SELFPAY | END 2025-09-01 12:16 | PROVIDERS: Admitting Provider Student in an Organized Health Care Education/Training Program; Emergency Provider Student in an Organized Health Care Education/Training Program; Visit Provider Internal Medicine Cardiovascular Disease | DX: R07.9 Chest pain, unspecified (principal) | CPT/HCPCS: 93010 ==

== ENCOUNTER 2025-08-30 16:14 | Outpatient (BNV) | payer MEDICARE, SELFPAY | END 2025-09-01 15:06 | PROVIDERS: Admitting Provider Student in an Organized Health Care Education/Training Program; Emergency Provider Student in an Organized Health Care Education/Training Program; Visit Provider Radiology Diagnostic Radiology | DX: J98.4 Other disorders of lung (principal) | CPT/HCPCS: 71045 ==

== ENCOUNTER 2025-09-16 09:08 | Outpatient (AMB) | payer OTHER, SELFPAY ==
--- NOTE | 2025-09-16 09:05 | A.OFFWM_ITS ---
Intake Intake Visit Reasons: TV PO LSG 07/14/25 Allergies cephalexin (From Keflex) Allergy (Intermediate, Verified 08/29/25 11:57) Redness of Skin doxycycline Allergy (Intermediate, Verified 08/29/25 11:57) Hives Penicillins Allergy (Intermediate, Verified 08/29/25 11:57) Hives, burning sensation Sulfa (Sulfonamide Antibiotics) Allergy (Intermediate, Verified 08/29/25 11:57) Hives,palpatations PFSH Medical History Annual physical exam Well woman exam with routine gynecological exam Morbid obesity with BMI of 60.0-69.9, adult Screening for cervical cancer Sleep apnea treated with nocturnal bilevel positive airway pressure (BPAP) Sleep apnea PCOS (polycystic ovarian syndrome) Migraines ADHD (attention deficit hyperactivity disorder) Depression GERD (gastroesophageal reflux disease) Morbid obesity Asthma High blood pressure Surgical History S/P gastric sleeve procedure S/P tonsillectomy History of eye surgery Family History Maternal Grandmother Breast cancer Mother Diabetes Other HTN (hypertension) Social History Household Members: None Housing: Apartment Are you a primary career development coordinator/teacher to a significant other at home: No Do you presently have visiting nurse or other home services: No Alcohol intake: current Alcohol intake frequency: holidays/special occasions only Patient Tobacco Use Status: Never used Tobacco e-Cigarette/Vaping Use: Never Used Second Hand Smoke Exposure: No service: No Current occupational status: employed Cognitive needs: No Hearing needs: No Vision needs: Yes (Glasses) Female Reproductive History Menstrual Age of Menarche: 11 Behavioral Health Assessment Weight Management Therapy Therapy Notes Details Subjective: Nena is currently in recovery following a 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 [place] [facility] [place], then 08/30-09/09 Telemetry unit) and is now undergoing rehabilitation at [facility] in [place], [place]. She reports persistent lower extremity weakness, inability to move her left foot, and numbness in both legs. She notes improvement in hand strength. She requires a walker for ambulation and standing, is able to take only a few steps, and needs supervision for both standing and walking. Nena has been informed that her recovery may take 6?12 months, though some individuals recover more quickly. She acknowledges difficulty accepting help from others, as noted by her physical therapist, but describes her mood as generally good. She reports sleeping ?decently,? feeling energetic during the day, but experiencing significant fatigue and weakness in the evenings. Her aunt is currently providing BRIDGE BUILDER support in place of her mother. Nena has sufficient PTO at work and has initiated the FMLA process. She is actively participating in physical therapy, occupational therapy, group therapy, and case management. She anticipates a possible transfer to another facility. Nena believes she may have gained some weight but is not focused on this, prioritizing her overall recovery instead. Objective: PT presented for a telehealth visit. Appears alert and oriented, appropriately session. Participated actively in the session. Counseling interventions provided included: * Supportive counseling to validate her emotional experience and normalize the challenges of accepting help during recovery. * Psychoeducation on the recovery process, including expected emotional fluctuations and the importance of self-compassion. * Cognitive reframing to address feelings of frustration and loss of independence. * Encouragement of adaptive coping strategies, such as focusing on small, achievable goals and utilizing available support systems. * Motivational interviewing techniques to explore ambivalence about accepting assistance and to reinforce her strengths and progress. Assessment/Response: * Mental status: The patient is alert and oriented to person, place, and time, with coherent speech and logical thought processes. Mood is euthymic and affect is appropriate and congruent with stated mood. No evidence of psychosis, pretty, or cognitive impairment is observed. Insight and judgment are intact. * Risk reported/identified: o suicidal or homicidal ideation, intent, or plan is reported or observed. There are no acute safety concerns identified during the session. Assessment & Plan Assessment & Plan (1) Anxiety disorder: Code(s): F41.9 - Anxiety disorder, unspecified Qualifiers: Anxiety disorder type: generalized anxiety disorder Qualified Code(s): F41.1 - Generalized anxiety disorder (2) History of ADHD: Code(s): Z86.59 - Personal history of other mental and behavioral disorders (3) Status post bariatric surgery: Code(s): Z98.84 - Bariatric surgery status Plan Follow up in two weeks for ongoing post-op support. Patient was reminded of today?s 9:45 am appointment with Adelina LUNA, and advised to update her surgeon. This provider will update the care team. * Next appointment is scheduled for 09/27/25 at 2 pm via video. Telehealth Telehealth Telehealth Platform: [employer]im[employer] Location of provider rendering services: practice address [facility] of patient[facility] Patient Identification confirmed using: Name, : Yes Telehealth method: video Patient verbally consented to treatment: Yes Patient verbally consented to billing insurance company: Yes Patient informed of any privacy concerns related to visit: Yes Minutes spent on Phone/Video with Pt.: 35 Coding Level of Care Code Established Pt Tele Psytx 30 mins (80729) Patient Type Established Diagnoses Generalized anxiety disorder F41.1 Anxiety disorder type: generalized anxiety disorder History of ADHD Z86.59 Status post bariatric surgery Z98.84 Time Spent (min) 35
--- OUTSIDE RECORDS SUMMARY | 2025-09-16 09:54 | XMS_ITS | Encounter Summary ---
Author Organization [facility] Address [address] [place] [address] Phone Care Team Providers Care Ecological Technical Officer Name Role Phone Darin Restrepo MD Primary Care Provider + Encounter Details Date Type Department Care Team (Late st Contact Info) Description 10/10/2022 Procedure [facility], Ct Scan - [address] [id number] Social History Tobacco Use Types Packs/Day Years [...] documented as of this encounter Care Teams Ecological Technical Officer Relationship Specialty Start Date End Date Darin Restrepo MD [address] [place] [phone] (work) PCP - General Internal Medicine 11/30/21 documented as of this encounter Additional Source Comments The information contained in this document represents components of the legal health record. It is not the complete legal health record.[facility]
--- OUTSIDE RECORDS SUMMARY | 2025-09-16 09:55 | XMS_ITS | Clinical Summary ---
Author Organization [facility] Address [address] [facility] [address] [place] [address] Phone Care Team Providers Care Credit Counselor Name Role Phone Darin Restrepo MD Primary [...] 2017 HIV ONE-TIME SCREENING (18-65 YEARS) 2017 POTASSIUM LEVEL 01/21/2025 01/22/2024, 09/24, 11/25/2017 SMOKING STATUS SCREENING (Once After 26 Yrs) 2025 INFLUENZA VACCINE (#1) 2025 , 09/07/2020, 08/26/2019, Additional history exists COVID-19 VACCINE ( season) 2025 09/06/2021, 01/29/2021, 01/08/2021 PAP SMEAR 09/05/2025 09/05/2022 Adult Td,Tdap Booster 04/27/2031 04/27/2021, 011 HIB [...] EST) SODIUM 140 133 - 146 mmol/L [facility] CHLORIDE 103 96 - 108 mmol/L [facility] POTASSIUM 4.6 3.3 - 5.1 mmol/L [facility] CO2 27 21 - 35 mmol/L [facility] BUN 15 6 - 19 mg/dL [facility] CREATININE 1.00 0.5 - 1.5 mg/dL [facility] GLUCOSE 100(H) 70 - 99 mg/dL [facility] CALCIUM 9.2 8.4 - 10.3 mg/dL [facility] EGFR 81 >59 mL/min/1.7 3m2 [facility] Comment:Estimated glomerular filtration rate calculated using the CKD-EPI refit equation. ANION GAP 15 10 - 20 mmol/L [facility] Blood 01/22/2024 12:3 5 AM EST 01/22/2024 12:40 AM EST us Grayson Ivan DO LAB BLOOD ORDERABLES F inal Result [facility] [address] [place] [address] from Last 3 Months or Most Recently Relevant to Health Maintenance [place] [address] MEDICARE REPLACEMENT [place] [id number] [place] [address] MEDICARE REPLACEMENT [facility] MEDICARE REPLACEMENT [place] [address] [address] MEDICARE REPLACEMENT [place] [id number] [place] [address] MEDICARE REPLACEMENT [facility] MEDICARE REPLACEMENT [place] [id number] [facility] Care Teams Credit Counselor Relationship Specialty Start Date End Date Darin Restrepo MD [address] [place] [id number] PCP - General Internal Medicine 11/30/21 Additional Source Comments The information contained in this document represents components of the legal health record. It is not the complete legal health record.[facility]
--- OUTSIDE RECORDS SUMMARY | 2025-09-16 09:55 | XMS_ITS | Encounter Summary ---
Author Organization [facility] Address [address] [place] [address] Care Team Providers Care Snailer Name Role Phone Iraida Woodruff Primary Care Provider [phone] Encounter Details Date Type Department Care Team (Late Contact Info) Description 09/13/2025 Lab Requisition [facility] - Main Lab [address] [facility] [place] [address] Ria Vivas MD [address] [place] [address] Other detention (current) drug therapy Social History Tobacco Use Types Packs/Day Years [...] 2:00 PM EST Office Visit Nephrology - [place] [address] [place] [address] Christopher Pollard MD [address] [place] [address] documented as of this encounter Procedures Procedure Name Priority Date/Time Associated Diagnosis Comments CBC WITH AUTO DIFFERENTIAL Routine 09/13/2025 6:38 AM EDT Other petroleum terminal plant operator (current) drug therapy CBC AND DIFFERENTIAL Routine 09/13/2025 6:38 AM EDT Other petroleum terminal plant operator (current) drug therapy COMPREHENSIVE METABOLIC PANEL Routine 09/13/2025 6:38 AM EDT Other petroleum terminal plant operator (current) drug therapy documented in this encounter Results * (ABNORMAL) CBC auto differential (09/13/2025 6:38 AM EDT) WBC 3.1(L) 4.8 - 10.8 K/mcL LAB HEMETOLOGY METHOD 09/13/2025 10:18 AM [facility] LAB RBC 4.40 3.80 - 4.80 M/mcL LAB HEMETOLOGY METHOD 09/13/2025 10:18 AM [facility] LAB Hemoglobin 12.0 11.5 - 16.0 g/dL LAB HEMETOLOGY METHOD 09/13/2025 10:18 AM [facility] LAB Hematocrit 38.4 35.0 - 47.0 % LAB HEMETOLOGY METHOD 09/13/2025 10:18 AM [facility] LAB MCV 87.9 79.0 - 98.0 FL LAB HEMETOLOGY METHOD 09/13/2025 10:18 AM [facility] LAB MCH 27.5 27.0 - 32.0 pcg LAB HEMETOLOGY METHOD 09/13/2025 10:18 AM [facility] LAB MCHC 31.3(L) 32.0 - 37.0 g/dL LAB HEMETOLOGY METHOD 09/13/2025 10:18 AM [facility] LAB RDW 16.9(H) 11.0 - 15.0 % LAB HEMETOLOGY METHOD 09/13/2025 10:18 AM [facility] LAB Platelets 209 130 - 400 K/mcL LAB HEMETOLOGY METHOD 09/13/2025 10:18 AM [facility] LAB MPV 12.3(H) 7.0 - 11.0 FL LAB HEMETOLOGY METHOD 09/13/2025 10:18 AM [facility] LAB NRBC 0.0 <1.0 % LAB HEMETOLOGY METHOD 09/13/2025 10:18 AM [facility] LAB NRBC Absolute 0.00 <0.10 K/mcL LAB HEMETOLOGY METHOD 09/13/2025 10:18 AM [facility] LAB Neutrophils Relative 40.5 % LAB HEMETOLOGY METHOD 09/13/2025 10:18 AM [facility] LAB Lymphocytes Relative 43.0 % LAB HEMETOLOGY METHOD 09/13/2025 10:18 AM [facility] LAB Monocytes Relative 13.9 % LAB HEMETOLOGY METHOD 09/13/2025 10:18 AM [facility] LAB Eosinophils Relative 1.3 % LAB HEMETOLOGY METHOD 09/13/2025 10:18 AM [facility] LAB Basophils Relative 1.0 % LAB HEMETOLOGY METHOD 09/13/2025 10:18 AM [facility] LAB Immature Granulocytes Relative 0.3 % LAB HEMETOLOGY METHOD 09/13/2025 10:18 AM [facility] LAB Neutrophils Absolute 1.25(L) 1.50 - 7.00 K/mcL LAB HEMETOLOGY METHOD 09/13/2025 10:18 AM [facility] LAB Lymphocytes Absolute 1.33 1.00 - 5.00 K/mcL LAB HEMETOLOGY METHOD 09/13/2025 10:18 AM [facility] LAB Monocytes Absolute 0.43 0.20 - 1.00 K/mcL LAB HEMETOLOGY METHOD 09/13/2025 10:18 AM [facility] LAB Eosinophils Absolute 0.04 0.00 - 0.50 K/mcL LAB HEMETOLOGY METHOD 09/13[facility]25 [facility] Basophils Absolute 0.03 0.00 - 0.20 K/mcL LAB HEMETOLOGY METHOD 09/13/2025 10:18 AM [facility] LAB Immature Granulocytes Absolute 0.01 0.00 - 0.03 K/mcL LAB HEMETOLOGY METHOD 09/13/2025 10:18 AM [facility] LAB Blood Venous blood specimen / Unknown Venipuncture / Unknown 09/13/2025 6:38 AM EDT 09/13/2025 8:48 AM EDT us Ria Vivas MD LAB BLOOD ORDERABLES Final Resu lt [facility] LAB [address] [place] [address], [place] [phone] * (ABNORMAL) Comprehensive metabolic panel (09/13/2025 6:38 AM EDT) Sodium 141 133 - 145 mmol/L LAB CHEMISTRY METHOD 09/13/2025 11:22 AM [facility] LAB Potassium 4.2 3.5 - 5.5 mmol/L LAB CHEMISTRY METHOD 09/13/2025 11:22 AM [facility] LAB Chloride 108 96 - 110 mmol/L LAB CHEMISTRY METHOD 09/13/2025 11:22 AM [facility] LAB CO2 25 21 - 32 mmol/L LAB CHEMISTRY METHOD 09/13/2025 11:22 AM [facility] LAB Anion Gap 8 3 - 11 LAB CHEMISTRY METHOD 09/13/2025 11:22 AM [facility] LAB Glucose 71 70 - 100 mg/dL LAB CHEMISTRY METHOD 09/13/2025 11:22 AM [facility] LAB BUN 14 5 - 25 mg/dL LAB CHEMISTRY METHOD 09/13/2025 11:22 AM [facility] LAB Creatinine 0.58 0.50 - 1.10 mg/dL LAB CHEMISTRY METHOD 09/13/2025 11:22 AM [facility] LAB eGFR 128 >=60 mL/min/1. 73m2 LAB CHEMISTRY METHOD 09/13/2025 11:22 AM [facility] LAB Comment:Calculation based on the Chronic Kidney Disease Epidemiology Collaboration (CKD-EPI) equation refit without adjustment for race. BUN/Creatinine Ratio 24.1 LAB CHEMISTRY METHOD 09/13/2025 11:22 AM [facility] LAB Calcium 9.3 8.5 - 10.5 mg/dL LAB CHEMISTRY METHOD 09/13/2025 11:22 AM [facility] LAB AST (SGOT) 51(H) 10 - 42 unit/L LAB CHEMISTRY METHOD 09/13/2025 11:22 AM [facility] LAB ALT (SGPT) 67(H) 10 - 60 unit/L LAB CHEMISTRY METHOD 09/13/2025 11:22 AM [facility] LAB Alkaline Phosphatase 47 42 - 121 unit/L LAB CHEMISTRY METHOD 09/13/2025 11:22 AM [facility] LAB Total Protein 7.8 6.0 - 8.0 g/dL LAB CHEMISTRY METHOD 09/13/2025 11:22 AM [facility] LAB Albumin 2.9(L) 3.2 - 5.0 g/dL LAB CHEMISTRY METHOD 09/13/2025 11:22 AM [facility] LAB Total Bilirubin 0.5 0.0 - 1.4 mg/dL LAB CHEMISTRY METHOD 09/13/2025 11:22 AM [facility] LAB Blood Venous blood specimen / Unknown Venipuncture / Unknown 09/13/2025 6:38 AM EDT 09/13/2025 8:48 AM EDT us Ria Vivas MD LAB BLOOD ORDERABLES Final Resu lt [facility] LAB [address] [place] [address], documented in this encounter Visit Diagnoses Diagnosis Other detention (current) drug therapy documented in this encounter Care Teams Snailer Relationship Specialty Start Date End Date Iraida Woodruff PA [address] [place] [address], [address] [place] [address] PCP - General 08/23/25 documented as of this encounter
--- OUTSIDE RECORDS SUMMARY | 2025-09-16 09:55 | XMS_ITS | Encounter Summary ---
Author Organization [facility] Address [address] [place] [address] Care Team Providers Care Catalogue Librarian Name Role Phone Iraida Woodruff Primary Care Provider [phone] Encounter Details Date Type Department Care Team (Late Contact Info) Description 09/10/2025 Lab Requisition [facility] - Main Lab [address] [facility] [place] [address] Isabella Wright PA [address] [place] [phone] Encounter for other general examination Social History Tobacco Use Types Packs/Day Years [...] 2:00 PM EST Office Visit Nephrology - [place] [address] [place] [address] Christopher Pollard MD [address] [facility] [address] [place] [address] documented as of this encounter Procedures Procedure Name Priority Date/Time Associated Diagnosis Comments MANUAL DIFFERENTIAL - SYSMEX WAM Routine 09/10/2025 6:40 AM EDT Encounter for other general examination PATHOLOGIST REVIEW BLOOD SMEAR Routine 09/10/2025 6:40 AM EDT Encounter for other general examination CBC WITH AUTO DIFFERENTIAL Routine 09/10/2025 6:40 AM EDT Encounter for other general examination CBC AND DIFFERENTIAL Routine 09/10/2025 6:40 AM EDT Encounter for other general examination MAGNESIUM Routine 09/10/2025 6:40 AM EDT Encounter for other general examination COMPREHENSIVE METABOLIC PANEL Routine 09/10/2025 6:40 AM EDT Encounter for other general examination documented in this encounter Results * Pathology review, blood smear (09/10/2025 6:40 AM EDT) Pathologist [facility] Pathologist Review Blood Smear Leukopenia including absolute neutropenia: smear not diagnostic of etiology. Rare reactive-appea ring lymphocytes are noted. Occasional giant platelets are noted; no significant platelet clumps are identified. 09/12/2025 9:27 AM EDT [facility] LAB Blood Venous blood specimen / Unknown Venipuncture / Unknown 09/10/2025 6:40 AM EDT 09/10/2025 9:50 AM EDT Isabella LUNA LAB BLOOD ORDERABLES Final Resu lt [facility] LAB [address] [place] [address], [place] [phone] * (ABNORMAL) Manual differential (09/10/2025 6:40 AM EDT) Neutrophils % 32.0 % LAB HEMETOLOGY METHOD 09/10/2025 11:55 AM EDT [facility] Lymphocytes % 61.0 % LAB HEMETOLOGY METHOD 09/10/2025 11:[address] [facility] LAB Monocytes % 5.0 % LAB HEMETOLOGY METHOD 09/10/2025 11:[address] [facility] LAB Eosinophils % 1.0 % LAB HEMETOLOGY METHOD 09/10/2025 11:[address] [facility] LAB Basophils % 1.0 % LAB HEMETOLOGY METHOD 09/10/2025 11:[address] [facility] LAB Neutrophils Absolute Manual 0.74(L) 1.50 - 7.00 K/mcL LAB HEMETOLOGY METHOD 09/10/2025 11:[address] [facility] LAB Lymphocytes Absolute 1.40 1.00 - 5.00 K/mcL LAB HEMETOLOGY METHOD 09/10/2025 11:[address] [facility] LAB Monocytes Absolute Manual 0.12(L) 0.20 - 1.00 K/mcL LAB HEMETOLOGY METHOD 09/10/2025 11:[address] [facility] LAB Eosinophils Absolute Manual 0.02 0.00 - 0.50 K/mcL LAB HEMETOLOGY METHOD 09/10/2025 11:[address] [facility] LAB Basophils Absolute Manual 0.02 0.00 - 0.20 K/mcL LAB HEMETOLOGY METHOD 09/10/2025 11:[address] [facility] LAB Rbc Morphology Consistent with indices Consistent with indices, Normal for [place] LAB HEMETOLOGY METHOD 09/10/2025 11:[address] [facility] LAB Platelet Morphology - WAM See Note(A) Normal LAB HEMETOLOGY METHOD 09/10/2025 11:[address] [facility] LAB Comment:PLT: Normal Blood Venous blood specimen / Unknown Venipuncture / Unknown 09/10/2025 6:40 AM EDT 09/10/2025 9:50 AM EDT us Isabella LUNA LAB BLOOD ORDERABLES Final Resu lt [facility] [address] [place] [address], * (ABNORMAL) CBC auto differential (09/10/2025 6:40 AM EDT) [facility] Signature WBC 2.3(L) 4.8 - 10.8 K/mcL LAB HEMETOLOGY METHOD 09/10/2025 11:55 AM EDT [facility] RBC 4.50 3.80 - 4.80 M/mcL LAB HEMETOLOGY METHOD 09/10/2025 11:55 AM EDT [facility] LAB Hemoglobin 12.4 11.5 - 16.0 g/dL LAB HEMETOLOGY METHOD 09/10/2025 11:55 AM EDT [facility] LAB Hematocrit 38.2 35.0 - 47.0 % LAB HEMETOLOGY METHOD 09/10/2025 11:55 AM EDT [facility] LAB MCV 84.5 79.0 - 98.0 FL LAB HEMETOLOGY METHOD 09/10/2025 11:55 AM EDT [facility] LAB MCH 27.4 27.0 - 32.0 pcg LAB HEMETOLOGY METHOD 09/10/2025 11:55 AM EDT [facility] LAB MCHC 32.5 32.0 - 37.0 g/dL LAB HEMETOLOGY METHOD 09/10/2025 11:55 AM EDT [facility] LAB RDW 16.1(H) 11.0 - 15.0 % LAB HEMETOLOGY METHOD 09/10/2025 11:55 AM EDT [facility] LAB Platelets 177 130 - 400 K/mcL LAB HEMETOLOGY METHOD 09/10/2025 11:55 AM EDT [facility] LAB MPV 12.0(H) 7.0 - 11.0 FL LAB HEMETOLOGY METHOD 09/10/2025 11:55 AM EDT [facility] LAB NRBC 0.0 <1.0 % LAB HEMETOLOGY METHOD 09/10/2025 11:55 AM EDT [facility] LAB NRBC Absolute 0.00 <0.10 K/mcL LAB HEMETOLOGY METHOD 09/10/2025 11:55 AM EDT [facility] LAB Blood Venous blood specimen / Unknown Venipuncture / Unknown 09/10/2025 6:40 AM EDT 09/10/2025 9:50 AM EDT Isabella LUNA LAB BLOOD ORDERABLES Final Resu lt [facility] LAB [address] [place] [address], [place] [phone] * Magnesium (09/10/2025 6:40 AM EDT) Magnesium 2.0 1.9 - 2.6 mg/dL LAB CHEMISTRY METHOD 09/10/2025 11:33 AM EDT [facility] LAB Blood Venous blood specimen / Unknown Venipuncture / Unknown 09/10/2025 6:40 AM EDT 09/10/2025 9:50 AM EDT Isabella LUNA LAB BLOOD ORDERABLES Final Resu lt [facility] LAB [address] [place] [address], [place] [phone] * (ABNORMAL) Comprehensive metabolic panel (09/10/2025 6:40 AM EDT) Sodium 137 133 - 145 mmol/L LAB CHEMISTRY METHOD 09/10/2025 11:33 AM EDT [facility] Potassium 4.0 3.5 - 5.5 mmol/L LAB CHEMISTRY METHOD 09/10/2025 11:33 AM EDT [facility] LAB Chloride 103 96 - 110 mmol/L LAB CHEMISTRY METHOD 09/10/2025 11:[address] [facility] LAB CO2 26 21 - 32 mmol/L LAB CHEMISTRY METHOD 09/10/2025 11:[address] [facility] LAB Anion Gap 8 3 - 11 LAB CHEMISTRY METHOD 09/10/2025 11:[address] [facility] LAB Glucose 62(L) 70 - 100 mg/dL LAB CHEMISTRY METHOD 09/10/2025 11:[address] [facility] LAB BUN 7 5 - 25 mg/dL LAB CHEMISTRY METHOD 09/10/2025 11:[address] [facility] LAB Creatinine 0.55 0.50 - 1.10 mg/dL LAB CHEMISTRY METHOD 09/10/2025 11:[address] [facility] LAB eGFR 130 >=60 mL/min/1. 73m2 LAB CHEMISTRY METHOD 09/10/2025 11:[address] [facility] LAB Comment:Calculation based on the Chronic Kidney Disease Epidemiology Collaboration (CKD-EPI) equation refit without adjustment for race. BUN/Creatinine Ratio 12.7 LAB CHEMISTRY METHOD 09/10/2025 11:[address] [facility] LAB Calcium 8.8 8.5 - 10.5 mg/dL LAB CHEMISTRY METHOD 09/10/2025 11:[address] [facility] LAB AST (SGOT) 56(H) 10 - 42 unit/L LAB CHEMISTRY METHOD 09/10/2025 11:[address] [facility] LAB ALT (SGPT) 70(H) 10 - 60 unit/L LAB CHEMISTRY METHOD 09/10/2025 11:[address] [facility] LAB Alkaline Phosphatase 49 42 - 121 unit/L LAB CHEMISTRY METHOD 09/10/2025 11:[address] [facility] LAB Total Protein 8.0 6.0 - 8.0 g/dL LAB CHEMISTRY METHOD 09/10/2025 11:[address] [facility] LAB Albumin 2.8(L) 3.2 - 5.0 g/dL LAB CHEMISTRY METHOD 09/10/2025 11:33 AM EDT [facility] Total Bilirubin 0.5 0.0 - 1.4 mg/dL LAB CHEMISTRY METHOD 09/10/2025 11:33 AM EDT [facility] LAB Blood Venous blood specimen / Unknown Venipuncture / Unknown 09/10/2025 6:40 AM EDT 09/10/2025 9:50 AM EDT us Isabella LUNA LAB BLOOD ORDERABLES Final Resu lt [facility] [address] [place] [address], documented in this encounter Visit Diagnoses Diagnosis Encounter for other general examination documented in this encounter Care Teams Catalogue Librarian Relationship Specialty Start Date End Date Iraida Woodruff PA [address] [place] [address], [address] [place] [address] PCP - General 08/23/25 documented as of this encounter
--- OUTSIDE RECORDS SUMMARY | 2025-09-16 09:55 | XMS_ITS | Clinical Summary ---
Author Organization [facility] [address] [place] [address] [place] [phone] Phone Care Team Providers Care Bottom Finisher Name Role Phone Iraida Woodruff Primary Care Provider [phone] Allergies Active Allergy Reactions Criticality Noted Date Comments Cephalexin 10/23/2020 Burning sensation all over body. Doxycycline Hyclate 10/23/2020 hives Penaten 02/20/2023 Penicillin G Hives High 02/17/2023 Pt stated had bad reaction. She had hives all over the body. Sulfa (Sulfonamide Antibiotics) 03/06/2021 Medications cloNIDine ([id number]-JFC-1 ) 0.3 mg/[address] 1 Patch onto the skin once a week. 4 Active emollient comb no.2, bulk, ointment Apply 0.5 g topically 2 times daily. 5% gabapentin ointment Sig: Apply 0.5 g daily to affected area Patient phone number: [phone] (home) 3 Active cholecalciferol (VITAMIN D-3) 1,250 [...] processing disorder 08/27/2024 Overview (08/27/2024): according to [facility] hearing report dated 01-15-13 Report from [...] obesity with BMI of 6 0.0-69.9, adult ([facility] V24, [facility] V28) 08/27/2024 Chlamydia 11/14/2023 PCOS [...] Recommended ACT 06-06 = 20 05-04-15: [facility] - asthma exacerbation as of 08-08- no prob since 03-27-16: seen [facility]- 5 d pred 40mg As [...] eval confirms dx of ADHD- accommodations in [employer]- full inclusion 03-07-15: normal [...] Encounters Date Type Department Care Team Description 09/13/2025 Lab Requisition [facility] - Main Lab [address] [facility] [place] [phone] Ria Vivas MD [facility] [place] [facility] drug therapy 09/10/2025 Lab Requisition [facility] Lab [address] [facility] [place] [address] Isabella Wright PA Encounter for other general examination 08/22/2025 Lab Requisition [facility] - Main Lab [address] [place] [address] Lasha Moctezuma PA Urinary tract infection, site not specified from Last 3 Months Immunizations Immunization Administration Dates Next Due DTaP (Infanrix) 6wks to less than 7yo ,07/17/2000,1999,09/04,1999 VIfC-HIF-NBT (Pentacel) 2mo to less than 5yo 06/18/2000,1999,1999,06/01 H1N1 Inj Preservative Free 12/22/2009 HPV, Quadrivalent 04/30/2013,07/14/2012,04/14/20 12 Hepatitis B (Azlawnv-Z-Hoizy , Recombivax HB-Adult) 19yo and older 07/12/2020,02/09/2020,01/05/2020 [...] 04/27/2003,06/12/2000 Meningococcal MCV4P 08/08/2015,04/14/2012 PPD Test 11/10/2019 [employer] SARS-CoV-2 COVID-19, mRNA, LNP-S, preservative free [...] TUBES OTHER SURGICAL HISTORY age 1.5yr PROCEDURE: [place] BRONCHOSCOPY W/TRANSBRONCHIAL LUNG BX 1 LOBE EYE SURGERY PROCEDURE: HISTORICAL EYE SURGERY Medical History Medical History Date Comments Essential hypertension 08/31/2019 DX:Essent ial hypertension Migraine with aura DX:Migraine w ith aura; COMMENT: Naprosyn 04-14-12: worsening- started amitriptyline 25 mg hs Saw neurologist and is on topamax- now 100 mg 08-08-15: ped neuro- verapamil 40 mg bid in addition to havracm631 mg hs; fioricet PRN, riboflavin, magnesium 10-10-15: [...] 2:00 PM EST Office Visit Nephrology - [place] [address] [place] [address] Christopher Pollard MD 100 [facility] [address] [place] [address] Health Maintenance Due Date Last Done Comments Pneumococcal Vaccine: Pediatrics (0 to 5 Years) and At-Risk Patients (6 to 49 Years) (1 of 1 - PPSV23, PCV20, or PCV21) 10/26/2019 08/31/2019, 04/14/2001, 07/17/2000 HIV Screening 11/02/2022 Hepatitis C Screening 11/02/2022 Social Influencers of Health Screening 11/02/2022 Depression Screening 11/24/2024 10/06/2023 COVID-19 Vaccine ( season) 2025 09/04/2021, 01/29/2021, 01/08/2021 Influenza Vaccine (#1) 2025 , 09/04/2021, 08/26/2019, Additional history exists Cervical Cancer Screening: Pap Smear 09/05/2025 09/05/2022, 09/05/2022, 09/05/2022 Hypertension/CHF/CAD Annual BMP Blood Test 09/10/2026 09/13/2025, 09/10/2025, 01/22/2024 Cholesterol Screening (Lipid Panel) 12/06/2027 12/06/2022 DTaP,Tdap,and [...] DIFFERENTIAL Routine 09/13/2025 6:38 AM EDT [place] [facility] [place] drug therapy COMPREHENSIVE METABOLIC PANEL Routine 09/13/2025 6:38 AM EDT [place] [facility] [place] drug therapy CBC AND DIFFERENTIAL Routine 09/13/2025 6:38 AM EDT Other [facility] inspector (current) drug therapy MANUAL DIFFERENTIAL - [facility] WAM Routine 09/10/2025 [...] AM EDT Encounter for other general examination CULTURE URINE Routine 08/22/2025 12:00 AM EDT Urinary tract infection, site not specified GONORRHEA/CHLAMYDIA SCRREENING Routine 11/13/2023 HM DEPRESSION SCREENING Routine 10/06/2023 LIPID PANEL Routine 12/06/2022 PAP SMEAR Routine 09/05/2022 from Last 3 Months or Most Recently Relevant to Health Maintenance Results * (ABNORMAL) CBC auto differential (09/13/2025 6:38 AM EDT) Only the most recent of2 resultswithin the time period is included. WBC 3.1(L) 4.8 - 10.8 K/mcL LAB HEMETOLOGY METHOD 09/13/2025 10:18 AM EDT [facility] RBC 4.40 3.80 - 4.80 M/mcL LAB HEMETOLOGY METHOD 09/13/2025 10:18 AM EDT [facility] Hemoglobin 12.0 11.5 - 16.0 g/dL LAB HEMETOLOGY METHOD 09/13/2025 10:18 AM EDT [facility] Hematocrit 38.4 35.0 - 47.0 % LAB HEMETOLOGY METHOD 09/13/2025 10:18 AM [facility] MCV 87.9 79.0 - 98.0 FL LAB HEMETOLOGY METHOD 09/13/2025 10:18 AM [facility] MCH 27.5 27.0 - 32.0 pcg LAB HEMETOLOGY METHOD 09/13/2025 10:18 AM [facility] MCHC 31.3(L) 32.0 - 37.0 g/dL LAB HEMETOLOGY METHOD 09/13/2025 10:18 AM [facility] RDW 16.9(H) 11.0 - 15.0 % LAB HEMETOLOGY METHOD 09/13/2025 10:18 AM [facility] Platelets 209 130 - 400 K/mcL LAB HEMETOLOGY METHOD 09/13/2025 10:18 AM [facility] MPV 12.3(H) 7.0 - 11.0 FL LAB HEMETOLOGY METHOD 09/13/2025 10:18 AM [facility] NRBC 0.0 <1.0 % LAB HEMETOLOGY METHOD 09/13/2025 10:18 AM [facility] NRBC Absolute 0.00 <0.10 K/mcL LAB HEMETOLOGY METHOD 09/13/2025 10:18 AM [facility] Neutrophils Relative 40.5 % LAB HEMETOLOGY METHOD 09/13/2025 10:18 AM [facility] Lymphocytes Relative 43.0 % LAB HEMETOLOGY METHOD 09/13/2025 10:18 AM [facility] Monocytes Relative 13.9 % LAB HEMETOLOGY METHOD 09/13/2025 10:18 AM [facility] Eosinophils Relative 1.3 % LAB HEMETOLOGY METHOD 09/13/2025 10:18 AM EDT [facility] Basophils Relative 1.0 % LAB HEMETOLOGY METHOD 09/13/2025 10:18 AM EDT [facility] Immature Granulocytes Relative 0.3 % LAB HEMETOLOGY METHOD 09/13/2025 10:18 AM EDT [facility] Neutrophils Absolute 1.25(L) 1.50 - 7.00 K/mcL LAB HEMETOLOGY METHOD 09/13/2025 10:18 AM EDT [facility] Lymphocytes Absolute 1.33 1.00 - 5.00 K/mcL LAB HEMETOLOGY METHOD 09/13/2025 10:18 AM EDT [facility] Monocytes Absolute 0.43 0.20 - 1.00 K/mcL LAB HEMETOLOGY METHOD 09/13/2025 10:18 AM EDT [facility] Eosinophils Absolute 0.04 0.00 - 0.50 K/mcL LAB HEMETOLOGY METHOD 09/13/2025 10:18 AM EDT [facility] Basophils Absolute 0.03 0.00 - 0.20 K/mcL LAB HEMETOLOGY METHOD 09/13/2025 10:18 AM EDT [facility] Immature Granulocytes Absolute 0.01 0.00 - 0.03 K/mcL LAB HEMETOLOGY METHOD 09/13/2025 10:18 AM EDT [facility] Blood Venous blood specimen / Unknown Venipuncture / Unknown 09/13/2025 6:38 AM EDT 09/13/2025 8:48 AM EDT us Ria Vivas MD LAB BLOOD ORDERABLES Final Resu lt [facility] [address] [place] [address], * (ABNORMAL) Comprehensive metabolic panel (09/13/2025 6:38 AM EDT) Only the most recent of2 resultswithin the time period is included. Sodium 141 133 - 145 mmol/L LAB CHEMISTRY METHOD 09/13/2025 11:22 AM [facility] Potassium 4.2 3.5 - 5.5 mmol/L LAB CHEMISTRY METHOD 09/13/2025 11:22 AM [facility] Chloride 108 96 - 110 mmol/L LAB CHEMISTRY METHOD 09/13/2025 11:22 AM [facility] CO2 25 21 - 32 mmol/L LAB CHEMISTRY METHOD 09/13/2025 11:22 AM [facility] Anion Gap 8 3 - 11 LAB CHEMISTRY METHOD 09/13/2025 11:22 AM [facility] Glucose 71 70 - 100 mg/dL LAB CHEMISTRY METHOD 09/13/2025 11:22 AM [facility] BUN 14 5 - 25 mg/dL LAB CHEMISTRY METHOD 09/13/2025 11:22 AM [facility] Creatinine 0.58 0.50 - 1.10 mg/dL LAB CHEMISTRY METHOD 09/13/2025 11:22 AM [facility] eGFR 128 >=60 mL/min/1. 73m2 LAB CHEMISTRY METHOD 09/13/2025 11:22 AM [facility] Comment:Calculation based on the Chronic Kidney Disease Epidemiology Collaboration (CKD-EPI) equation refit without adjustment for race. BUN/Creatinine Ratio 24.1 LAB CHEMISTRY METHOD 09/13/2025 11:22 AM [facility] Calcium 9.3 8.5 - 10.5 mg/dL LAB CHEMISTRY METHOD 09/13/2025 11:22 AM [facility] AST (SGOT) 51(H) 10 - 42 unit/L LAB CHEMISTRY METHOD 09/13/2025 11:22 AM [facility] ALT (SGPT) 67(H) 10 - 60 unit/L LAB CHEMISTRY METHOD 09/13/2025 11:22 AM EDT [facility] Alkaline Phosphatase 47 42 - 121 unit/L LAB CHEMISTRY METHOD 09/13/2025 11:22 AM EDT [facility] Total Protein 7.8 6.0 - 8.0 g/dL LAB CHEMISTRY METHOD 09/13/2025 11:22 AM [facility] Albumin 2.9(L) 3.2 - 5.0 g/dL LAB CHEMISTRY METHOD 09/13/2025 11:22 AM EDT [facility] Total Bilirubin 0.5 0.0 - 1.4 mg/dL LAB CHEMISTRY METHOD 09/13/2025 11:22 AM [facility] Blood Venous blood specimen / Unknown Venipuncture / Unknown 09/13/2025 6:38 AM EDT 09/13/2025 8:48 AM EDT us Ria Vivas MD LAB BLOOD ORDERABLES Final Resu lt [facility] [address] [place] [address], * (ABNORMAL) Manual differential (09/10/2025 6:40 AM EDT) Neutrophils % 32.0 % LAB HEMETOLOGY METHOD 09/10/2025 11:55 AM EDT [facility] Lymphocytes % 61.0 % LAB HEMETOLOGY METHOD 09/10/2025 11:55 AM EDT [facility] Monocytes % 5.0 % LAB HEMETOLOGY METHOD 09/10/2025 11:55 AM EDT [facility] Eosinophils % 1.0 % LAB HEMETOLOGY METHOD 09/10/2025 11:55 AM EDT [facility] Basophils % 1.0 % LAB HEMETOLOGY METHOD 09/10/2025 11:55 AM EDT [facility] Neutrophils Absolute Manual 0.74(L) 1.50 - 7.00 K/mcL LAB HEMETOLOGY METHOD 09/10/2025 11:55 AM EDT [facility] Lymphocytes Absolute 1.40 1.00 - 5.00 K/mcL LAB HEMETOLOGY METHOD 09/10/2025 11:55 AM EDT [facility] Monocytes Absolute Manual 0.12(L) 0.20 - 1.00 K/mcL LAB HEMETOLOGY METHOD 09/10/2025 11:55 AM EDT [facility] Eosinophils Absolute Manual 0.02 0.00 - 0.50 K/mcL LAB HEMETOLOGY METHOD 09/10/2025 11:55 AM EDT [facility] Basophils Absolute Manual 0.02 0.00 - 0.20 K/mcL LAB HEMETOLOGY METHOD 09/10/2025 11:55 AM EDT [facility] Rbc Morphology Consistent with indices Consistent with indices, Normal for Apison LAB HEMETOLOGY METHOD 09/10/2025 11:55 AM EDT [facility] Platelet Morphology - WAM See Note(A) Normal LAB HEMETOLOGY METHOD 09/10/2025 11:55 AM EDT [facility] Comment:PLT: Normal Blood Venous blood specimen / Unknown Venipuncture / Unknown 09/10/2025 6:40 AM EDT 09/10/2025 9:50 AM EDT us Isabella LUNA LAB BLOOD ORDERABLES Final Resu lt [facility] [address] [place] [address], * Pathology review, blood smear (09/10/2025 6:40 AM EDT) Pathologist Review Blood Smear Leukopenia including absolute neutropenia: smear not diagnostic of etiology. Rare reactive-appea ring lymphocytes are noted. Occasional giant platelets are noted; no significant platelet clumps are identified. 09/12/2025 9:27 AM EDT [facility] Blood Venous blood specimen / Unknown Venipuncture / Unknown 09/10/2025 6:40 AM EDT 09/10/2025 9:50 AM EDT Isabella LUNA LAB BLOOD ORDERABLES Final Resu lt Performing Organization Address [facility]/ZIP Co de Phone Number [facility] [address] [place] [address], [place] [phone] * Magnesium (09/10/2025 6:40 AM EDT) Magnesium 2.0 1.9 - 2.6 mg/dL LAB CHEMISTRY METHOD 09/10/2025 11:33 AM EDT [facility] Blood Venous blood specimen / Unknown Venipuncture / Unknown 09/10/2025 6:40 AM EDT 09/10/2025 9:50 AM EDT Isabella LUNA LAB BLOOD ORDERABLES Final Resu lt Performing Organization Address City/[facility]/ZIP Co de Phone Number [facility] [address] [place] [address], [place] [phone] * Culture urine (08/22/2025 12:00 AM EDT) Culture, Urine 50,000-99,000 CFU/mL Mixed urogenital rosa, no uropathogens present. Suggest repeat specimen if clinically indicated. 08/23/2025 1:26 PM EDT [facility] Urine Urine specimen obtained by clean catch procedure / Unknown 08/22/2025 08/22/2025 6:35 PM EDT Lasha LUNA LAB MICROBIOLOGY - GENERAL ORDKyree ALMEIDA Final Result [facility] [address] [place] [address], * Gonorrhea/Chlamydia Screening (11/13/2023) Gonorrhea/Chla mydia Screening abstracted Historical Provider HEALTH MAINTENANCE Final Result * Depression Screening (10/06/2023) Depression Screening abstracted Historical Provider HEALTH MAINTENANCE Final Result * Lipid panel (12/06/2022) LDL/HDL Ratio 2 0 - 4 Triglycerides 71 0 - 150 mg/dL Cholesterol 117 0 - 200 mg/dL HDL 48 >=40 mg/dL LDL Cholesterol 55 0 - 100 mg/dL Blood Venous blood specimen / Unknown Historical Provider LAB BLOOD ORDERABLES Praveena l Result * Pap smear (09/05/2022) 09/05/2022 Narrative HISTORICAL TESTING LAB RESULTING AGENCY - 09/12/2022 7:30 AM EDT [id number] THINPREP PAP, IMAGED: NEGATIVE FOR SQUAMOUS INTRAEPITHELIAL [...] Maintenance Insurance MEDICAID - [place] Care Teams Bottom Finisher Relationship Specialty Start Date End Date Iraida Woodruff PA [address] [place] [address], [address] [place] [address] PCP - General 08/23/25
--- OUTSIDE RECORDS SUMMARY | 2025-09-16 09:55 | XMS_ITS | Encounter Summary ---
Author Organization [facility] Address [address] [place] [address] Phone Care Team Providers Care Proof Sorter Name Role Phone Dairn Restrepo MD Primary Care Provider + Encounter Details Date Type Department Care Team (Late st Contact Info) Description 01/22/2024 Procedure Pass [facility], Ct Scan - [facility] [address] [place] [address] Social History Tobacco Use Types Packs/Day Years [...] documented as of this encounter Care Teams Proof Sorter Relationship Specialty Start Date End Date Darin Restrepo MD [address] [place] [address] PCP - General Internal Medicine 11/30/21 documented as of this encounter Additional Source Comments The information contained in this document represents components of the legal health record. It is not the complete legal health record.[facility]
--- OUTSIDE RECORDS SUMMARY | 2025-09-16 09:55 | XMS_ITS | Encounter Summary ---
Author Organization [facility] Address [address] [place] [address] Care Team Providers Care Cop Winder Name Role Phone Iraida Woodruff Primary Care Provider [phone] Encounter Details Date Type Department Care Team (Late Contact Info) Description 08/22/2025 Lab Requisition [facility] - Main Lab [address] [facility] [place] [address] Lasha Moctezuma PA [address] [place] [address] Urinary tract infection, site not specified Social [...] 2:00 PM EST Office Visit Nephrology - [place] [address] [place] [address] Christopher Pollard MD [address] [place] [phone] documented as of this encounter Procedures Procedure Name Priority Date/Time Associated Diagnosis Comments CULTURE URINE Routine 08/22/2025 12:00 AM EDT Urinary tract infection, site not specified documented in this encounter Results * Culture urine (08/22/2025 12:00 AM EDT) Culture, Urine 50,000-99,000 CFU/mL Mixed urogenital joel, no uropathogens present. Suggest repeat specimen if clinically indicated. 08/23/2025 1:26 PM EDT [facility] Urine Urine specimen obtained by clean catch procedure / Unknown 08/22/2025 08/22/2025 6:35 PM EDT Lasha LUNA LAB MICROBIOLOGY - GENERAL TREY ALMEIDA Final Result [facility] [address] [place] [address], documented in this encounter Visit Diagnoses Diagnosis Urinary tract infection, site not specified documented in this encounter Care Teams Cop Winder Relationship Specialty Start Date End Date Iraida Woodruff PA [address] [place] [address], [address] [place] [address] PCP - General 08/23/25 documented as of this encounter
--- OUTSIDE RECORDS SUMMARY | 2025-09-16 09:55 | XMS_ITS | Encounter Summary ---
Author Organization [facility] Address [address] [place] [address] Phone Care Team Providers Care Window Framer Name Role Phone Arpita White MD Primary Care Provider Martina Hunter MD Primary Care Provider [phone] Darin Restrepo MD Primary Care Provider + Encounter Details Date Type Department Care Team (Latest Contact Info) Description 10/24/2017 Transcribe Orders [facility] [address] [place] [address] Cameron Jones MD [address] [place] [address] Hirsutism (Primary Dx); Oligomenorrhea, unspecified [...] (10/24/2017 8:29 AM EST) HDL 51 mg/dL [facility] Comment: Interpretation: Risk Level Females Decreased >55mg/dL Average 50-55 mg/dL Increased <50 mg/dL CHOLESTEROL 141 0 - 240 mg/dL [facility] Comment: Pediatric Reference Ranges for 2 to 18 years Acceptable: Less than 170 mg/dL Borderline: 170 - 199 mg/dL High: Greater than or equal to 200 mg/dL TRIGLYCERIDES 73 30 - 160 mg/dL [facility] LDL 75 50 - 129 mg/dL [facility] Comment: LDL levels in terms of risk for coronary heart disease: <100 mg/dL: Optimal 100-129 mg/dL: Near or above optimal 130-159 mg/dL: Borderline high 160-189 mg/dL: High >190 mg/dL: Very High CARDIAC RISK RATIO 2.8(L) 3.3 - 4.4 C [facility] Blood 10/24/2017 8:29 AM EST 10/24/2017 8:33 AM EST us Cameron Jones MD LAB BLOOD ORDERABLES Fi nal Result Performing Organization Address City/State/[facility] Co de Phone Number [facility] [address] [place] [address] documented in this encounter Visit Diagnoses Diagnosis Hirsutism- Primary Oligomenorrhea, unspecified type documented in this encounter Additional Health Concerns Infection Onset Date Last Indicated Resolved Time CoV-Risk 02/16/2023 02/16/2023 02/27/2023 1:22 AM EDT CoV-Risk 01/21/2024 01/21/2024 02/01/2024 1:22 AM EST documented as of this encounter Care Teams Window Framer Relationship Specialty Start Date End Date Arpita White MD [address] [place] [address] PCP - General Pediatrics 10/24/17 11/22/19 Martina Torres MD [address] [place] [address] PCP - General Internal Medicine 11/23/19 11/29/21 Darin Restrepo MD [address] [place] [address] PCP - General Internal Medicine 11/30/21 documented as of this encounter Additional Source Comments The information contained in this document represents components of the legal health record. It is not the complete legal health record.[facility]
--- OUTSIDE RECORDS SUMMARY | 2025-09-16 09:55 | XMS_ITS | Patient Health Record ---
Author Organization [facility] Address [address] [place] [address] Support Name Relationship Address Phone Nena Zafar Guarantor Unknown [phone] Allergies Allergen (clinical drug ingredient) Drug/Non Drug Allergy documented on EMR Reaction Allergy Type Onset Date Status Information temporarily unavailable Keflex hives Drug Allergy Active Information temporarily unavailable Doxycycline hives Drug Allergy Active Information temporarily unavailable Sulfa Antibiotics hives Drug Allergy Active Reason [...] Problem Status W/U Status Risk Notes Problem Information temporarily unavailable Morbid (severe) obesity due to excess calories (E66.01) Active confirmed Problem Information temporarily unavailable Generalized anxiety disorder (F41.1) Active confirmed Problem Information temporarily unavailable Migraine with aura, not intractable, without status migrainosus (G43.109) Active confirmed Problem Information temporarily unavailable Obstructive sleep apnea (adult) (pediatric) (G47.33) Active confirmed Problem Information temporarily unavailable Essential (primary) hypertension (I10) Active confirmed Problem Information temporarily unavailable Mild intermittent asthma, uncomplicated (J45.20) Active confirmed Problem Information temporarily unavailable Gastro-esophageal reflux disease without esophagitis (K21.9) Active confirmed Problem Information temporarily unavailable Attention and concentration deficit (R41.840) Active confirmed Plan Of Treatment No Information Insurance Providers Payer Name Payer Address Payer Phone Subscriber Number Group Number Insured Name Patient Relationship to Insured Coverage Start Date Coverage End Date [facility] [address] [place] [address] [id number] Nena Ballard Self - patient is the insured Medical (General) History Medical History History ICD Code Generalized anxiety disorder/major depre ssive disorder, sees psychiatry ADD GERD Mild intermittent asthma Migraine headaches with aura Hypertension AIDAN cannot tolerate CPAP Surgical History Surgery Date(Month/Year) strabismus surgery
--- OUTSIDE RECORDS SUMMARY | 2025-09-16 09:55 | XMS_ITS | Encounter Summary ---
Author Organization [facility] Address [address] [place] [address] Phone Care Team Providers Care Monitor Tech Name Role Phone Darin Restrepo MD Primary Care Provider + Encounter Details Date Type Department Care Team (Late st Contact Info) Description 01/22/2024 Procedure Pass [facility], Ct Scan - [facility] [address] [place] [address] Social History Tobacco Use Types Packs/Day Years [...] documented as of this encounter Care Teams Monitor Tech Relationship Specialty Start Date End Date Darin Restrepo MD [address] [place] [address] PCP - General Internal Medicine 11/30/21 documented as of this encounter Additional Source Comments The information contained in this document represents components of the legal health record. It is not the complete legal health record.[facility]
== END 2025-09-16 09:43 | disposition home or self-care (01) ==
LOC: HO.HBST 09:08
PROVIDERS: Visit Provider Counselor Mental Health
DX: F41.1 Generalized anxiety disorder (principal); Z86.59 Personal history of other mental and behavioral disorders; Z98.84 Bariatric surgery status
CPT/HCPCS: 90832

== ENCOUNTER 2025-10-06 16:07 | Outpatient (AMB) | payer MEDICARE, SELFPAY ==
--- NOTE | 2025-10-06 14:33 | MHC.OFFVISWM ---
VS Expanded 10/06/25 14:37 Height 5 ft 3 in Weight 265 lb BMI 46.9 Intake Visit Reasons: TV PO LSG 07/14/25 *Okay per AK* Allergies cephalexin (From Keflex) Allergy (Intermediate, Verified 08/29/25 11:57) Redness of Skin doxycycline Allergy (Intermediate, Verified 08/29/25 11:57) Hives Penicillins Allergy (Intermediate, Verified 08/29/25 11:57) Hives, burning sensation Sulfa (Sulfonamide Antibiotics) Allergy (Intermediate, Verified 08/29/25 11:57) Hives,palpatations Medication List - Last Reconciled 10/06/25 by CHERYL Pelaez albuterol sulfate 90 mcg/actuation 1 inh inhalation QID PRN cholecalciferol (vitamin D3) 1,250 mcg PO MO [CPAP with attachment As directed] famotidine 20 mg PO DAILY folic acid 1 mg PO DAILY 30 days gabapentin 300 mg (3 x 100 mg) PO BEDTIME 2 months MDD 300mg levonorgestrel (Mirena) 1 device intrauterine ONCE lisinopril 20 mg See Protocol PO DAILY 30 days ondansetron 4 mg PO Q12H PRN pantoprazole 40 mg PO DAILY@0600 sertraline 50 mg PO DAILY sucralfate 10 mL PO BID thiamine mononitrate (vit B1) 100 mg PO DAILY 30 days HPI Comments Details: This?is a?25?yo F who is s/p LSG 07/14/2025. Presents for 3mo post op visit. Weight today is 265 lbs with BMI 46.9. No complaints of nausea, emesis, abdominal pain, or constipation. Reflux is overall improved from previous; not constant, but does feel sometimes. Was transferred to another rehab facility. Continues to use bars and shakes. Has a UTI. Present meal plan includes: following with Dr Mary russo- 3 full shakes, [employer] Exercise routine includes: participating in PT/OT a few times a week for each is now able to walk short distances with a walker [facility] Medical History Annual physical exam Well woman exam with routine gynecological exam Morbid obesity with BMI of 60.0-69.9, adult Screening for cervical cancer Sleep apnea treated with nocturnal bilevel positive airway pressure (BPAP) Sleep apnea PCOS (polycystic ovarian syndrome) Migraines ADHD (attention deficit hyperactivity disorder) Depression GERD (gastroesophageal reflux disease) Morbid obesity Asthma High blood pressure Surgical History S/P gastric sleeve procedure S/P tonsillectomy History of eye surgery Family History Maternal Grandmother Breast cancer Mother Diabetes Other HTN (hypertension) Social History Household Members: None Housing: Apartment Are you a primary healthcare corporate account director to a significant other at home: No Do you presently have visiting nurse or other home services: No Alcohol intake: current Alcohol intake frequency: holidays/special occasions only Patient Tobacco Use Status: Never used Tobacco e-Cigarette/Vaping Use: Never Used Second Hand Smoke Exposure: No service: No Current occupational status: employed Cognitive needs: No Hearing needs: No Vision needs: Yes (Glasses) Female Reproductive History Menstrual Age of Menarche: 11 Telehealth Telehealth Telehealth Platform: Telephone Location of provider rendering services: practice address Location of patient: other Patient Identification confirmed using: Name, : Yes Telehealth method: voice only Patient verbally consented to treatment: Yes Patient verbally consented to billing insurance company: Yes Patient informed of any privacy concerns related to visit: Yes Minutes spent on Phone/Video with Pt.: 15 Assessment & Plan Assessment & Plan (1) S/P laparoscopic sleeve gastrectomy: Code(s): Z98.84 - Bariatric surgery status Category: Surgical (2) Morbid obesity: Code(s): E66.01 - Morbid (severe) obesity due to excess calories Category: Medical Plan Pt to continue communicating with Dr Hernandez and following current meal plan. She is aware of reflux triggers and appropriate pace of eating and drinking. She has follow up appointment with Wendy. GAMBLE 1 month, TV 8am on 11/10.
[2025-10-06 14:37] VITALS: BMI 46.9
--- OUTSIDE RECORDS SUMMARY | 2025-10-06 18:47 | XMS_ITS | Encounter Summary ---
Author Organization [facility] Address [address] [place] [address] Care Team Providers Care Resourcing Advisor Name Role Phone Iraida Woodruff Primary Care Provider [phone] Encounter Details Date Type Department Care Team (Late st Contact Info) Description 09/10/2025 Lab Requisition [facility] - Main Lab [address] [facility] [place] [address] Isabella Wright PA [address] [place] [phone] Encounter for other general examination Social History [...] 2:00 PM EST Office Visit Nephrology - [place] [address] [place] [address] Christopher Pollard MD [address] [place] [address] documented as of this encounter [...] clumps are identified. 09/12/2025 9:27 AM EDT [facility] Blood Venous blood specimen / Unknown Venipuncture / Unknown 09/10/2025 6:40 AM EDT 09/10/2025 9:50 AM EDT Isabella LUNA LAB BLOOD ORDERABLES Final Resu lt [facility] [address] [place] [address], [place] [phone] * (ABNORMAL) Manual differential (09/10/2025 6:40 AM EDT) Neutrophils % 32.0 % LAB HEMETOLOGY METHOD 09/10/2025 11:55 AM EDT [facility] Lymphocytes % 61.0 % LAB HEMETOLOGY METHOD 09/10/2025 11:55 AM [facility] Monocytes % 5.0 % LAB HEMETOLOGY METHOD 09/10/2025 11:55 AM [facility] Eosinophils % 1.0 % LAB HEMETOLOGY METHOD 09/10/2025 11:55 AM [facility] Basophils % 1.0 % LAB HEMETOLOGY METHOD 09/10/2025 11:55 AM [facility] Neutrophils Absolute Manual 0.74(L) 1.50 - 7.00 K/mcL LAB HEMETOLOGY METHOD 09/10/2025 11:55 AM [facility] Lymphocytes Absolute 1.40 1.00 - 5.00 K/mcL LAB HEMETOLOGY METHOD 09/10/2025 11:55 AM [facility] Monocytes Absolute Manual 0.12(L) 0.20 - 1.00 K/mcL LAB HEMETOLOGY METHOD 09/10/2025 11:55 AM [facility] Eosinophils Absolute Manual 0.02 0.00 - 0.50 K/mcL LAB HEMETOLOGY METHOD 09/10/2025 11:55 AM [facility] Basophils Absolute Manual 0.02 0.00 - 0.20 K/mcL LAB HEMETOLOGY METHOD 09/10/2025 11:55 AM [facility] Rbc Morphology Consistent with indices Consistent with indices, Normal for LAB HEMETOLOGY METHOD 09/10/2025 11:55 AM [facility] Platelet Morphology - WAM See Note(A) Normal LAB HEMETOLOGY METHOD 09/10/2025 11:55 AM [facility] Comment:PLT: Normal Blood Venous blood specimen / Unknown Venipuncture / Unknown 09/10/2025 6:40 AM EDT 09/10/2025 9:50 AM EDT us Isabella LUNA LAB BLOOD ORDERABLES Final Resu lt [facility] [address] [place] [address], * (ABNORMAL) CBC auto differential (09/10/2025 6:40 AM EDT) [facility] Signature WBC 2.3(L) 4.8 - 10.8 K/mcL LAB HEMETOLOGY METHOD 09/10/2025 11:55 AM EDT [facility] RBC 4.50 3.80 - 4.80 M/mcL LAB HEMETOLOGY METHOD 09/10/2025 11:55 AM EDT [facility] Hemoglobin 12.4 11.5 - 16.0 g/dL LAB HEMETOLOGY METHOD 09/10/2025 11:55 AM EDT [facility] Hematocrit 38.2 35.0 - 47.0 % LAB HEMETOLOGY METHOD 09/10/2025 11:55 AM EDT [facility] MCV 84.5 79.0 - 98.0 FL LAB HEMETOLOGY METHOD 09/10/2025 11:55 AM EDT [facility] MCH 27.4 27.0 - 32.0 pcg LAB HEMETOLOGY METHOD 09/10/2025 11:55 AM EDT [facility] MCHC 32.5 32.0 - 37.0 g/dL LAB HEMETOLOGY METHOD 09/10/2025 11:55 AM EDT [facility] RDW 16.1(H) 11.0 - 15.0 % LAB HEMETOLOGY METHOD 09/10/2025 11:55 AM EDT [facility] Platelets 177 130 - 400 K/mcL LAB HEMETOLOGY METHOD 09/10/2025 11:55 AM EDT [facility] MPV 12.0(H) 7.0 - 11.0 FL LAB HEMETOLOGY METHOD 09/10/2025 11:55 AM EDT [facility] NRBC 0.0 <1.0 % LAB HEMETOLOGY METHOD 09/10/2025 11:55 AM EDT [facility] NRBC Absolute 0.00 <0.10 K/mcL LAB HEMETOLOGY METHOD 09/10/2025 11:55 AM EDT [facility] Blood Venous blood specimen / Unknown Venipuncture / Unknown 09/10/2025 6:40 AM EDT 09/10/2025 9:50 AM EDT Isabella LUNA LAB BLOOD ORDERABLES Final Resu lt [facility] [address] [place] [address], [place] [phone] * Magnesium (09/10/2025 6:40 AM EDT) Magnesium 2.0 1.9 - 2.6 mg/dL LAB CHEMISTRY METHOD 09/10/2025 11:33 AM EDT [facility] Blood Venous blood specimen / Unknown Venipuncture / Unknown 09/10/2025 6:40 AM EDT 09/10/2025 9:50 AM EDT Isabella LUNA LAB BLOOD ORDERABLES Final Resu lt [facility] [address] [place] [address], [place] [phone] * (ABNORMAL) Comprehensive metabolic panel (09/10/2025 6:40 AM EDT) Sodium 137 133 - 145 mmol/L LAB CHEMISTRY METHOD 09/10/2025 11:33 AM EDT [facility] Potassium 4.0 3.5 - 5.5 mmol/L LAB CHEMISTRY METHOD 09/10/2025 11:33 AM EDT [facility] Chloride 103 96 - 110 mmol/L LAB CHEMISTRY METHOD 09/10/2025 11:33 AM [facility] CO2 26 21 - 32 mmol/L LAB CHEMISTRY METHOD 09/10/2025 11:33 AM [facility] Anion Gap 8 3 - 11 LAB CHEMISTRY METHOD 09/10/2025 11:33 AM [facility] Glucose 62(L) 70 - 100 mg/dL LAB CHEMISTRY METHOD 09/10/2025 11:33 AM [facility] BUN 7 5 - 25 mg/dL LAB CHEMISTRY METHOD 09/10/2025 11:33 AM [facility] Creatinine 0.55 0.50 - 1.10 mg/dL LAB CHEMISTRY METHOD 09/10/2025 11:33 AM [facility] eGFR 130 >=60 mL/min/1. 73m2 LAB CHEMISTRY METHOD 09/10/2025 11:33 AM [facility] Comment:Calculation based on the Chronic Kidney Disease Epidemiology Collaboration (CKD-EPI) equation refit without adjustment for race. BUN/Creatinine Ratio 12.7 LAB CHEMISTRY METHOD 09/10/2025 11:33 AM [facility] Calcium 8.8 8.5 - 10.5 mg/dL LAB CHEMISTRY METHOD 09/10/2025 11:33 AM [facility] AST (SGOT) 56(H) 10 - 42 unit/L LAB CHEMISTRY METHOD 09/10/2025 11:33 AM [facility] ALT (SGPT) 70(H) 10 - 60 unit/L LAB CHEMISTRY METHOD 09/10/2025 11:33 AM [facility] Alkaline Phosphatase 49 42 - 121 unit/L LAB CHEMISTRY METHOD 09/10/2025 11:33 AM [facility] Total Protein 8.0 6.0 - 8.0 g/dL LAB CHEMISTRY METHOD 09/10/2025 11:33 AM [facility] Albumin 2.8(L) 3.2 - 5.0 g/dL LAB CHEMISTRY METHOD 09/10/2025 11:33 AM EDT [facility] Total Bilirubin 0.5 0.0 - 1.4 mg/dL LAB CHEMISTRY METHOD 09/10/2025 11:33 AM EDT [facility] Blood Venous blood specimen / Unknown Venipuncture / Unknown 09/10/2025 6:40 AM EDT 09/10/2025 9:50 AM EDT us Isabella LUNA LAB BLOOD ORDERABLES Final Resu lt [facility] [address] [place] [address], documented in this encounter Visit Diagnoses Diagnosis Encounter for other general examination documented in this encounter Care Teams Resourcing Advisor Relationship Specialty Start Date End Date Iraida Woodruff PA [address] [place] [address], [address] [place] [address] PCP - General 08/23/25 documented as of this encounter
--- OUTSIDE RECORDS SUMMARY | 2025-10-06 18:47 | XMS_ITS | Patient Health Record ---
Author Organization [employer] Address [address] [facility] [address] [place] [address] Support Name Relationship Address Phone Nena Zafar Guarantor Unknown [phone] Allergies Allergen (clinical drug ingredient) Drug/Non Drug [...] Status Risk Notes Problem Morbid obesity (disorder) (072340106) Morbid (severe) obesity due to excess calories (E66.01) Active confirmed Problem Generalized anxiety disorder (18389411) Generalized anxiety disorder (F41.1) Active confirmed Problem Migraine with aura (8001333) Migraine with aura, not intractable, without status migrainosus (G43.109) Active confirmed Problem Obstructive sleep apnea syndrome (disorder) (54618163) Obstructive sleep apnea (adult) (pediatric) (G47.33) Active confirmed Problem Essential hypertension (56945031) Essential (primary) hypertension (I10) Active confirmed Problem Mild intermittent asthma (572509256) Mild intermittent asthma, uncomplicated (J45.20) Active confirmed Problem Gastro-esophageal reflux disease without esophagitis (870098449) Gastro-esophageal reflux disease without esophagitis (K21.9) Active confirmed Problem Attention deficit hyperactivity disorder, predominantly inattentive type (disorder) (97793025) Attention and concentration deficit (R41.840) Active confirmed Plan Of Treatment No Information Insurance Providers Payer Name Payer Address Payer Phone Subscriber Number Group Number Insured Name Patient Relationship to Insured Coverage Start Date Coverage End Date [facility] [address] [place] [address] [id number] Nena Ballard Self - patient is the insured Medical (General) History Medical History History ICD Code Generalized anxiety disorder/major depre ssive disorder, sees psychiatry ADD GERD Mild intermittent asthma Migraine headaches with aura Hypertension AIDAN cannot tolerate CPAP Surgical History Surgery Date(Month/Year) strabismus surgery
--- OUTSIDE RECORDS SUMMARY | 2025-10-06 18:47 | XMS_ITS | Encounter Summary ---
Author Organization [facility] Address [address] [place] [address] Phone Care Team Providers Care Travel Guide Name Role Phone Darin Restrepo MD Primary Care Provider + Encounter Details Date Type Department Care Team (Late st Contact Info) Description 01/22/2024 Procedure Pass [facility], Ct Scan - [facility] [address] [place] [address] Social History Tobacco Use Types Packs/Day Years [...] documented as of this encounter Care Teams Travel Guide Relationship Specialty Start Date End Date Darin Restrepo MD [address] [place] [id number] PCP - General Internal Medicine 11/30/21 documented as of this encounter Additional Source Comments The information contained in this document represents components of the legal health record. It is not the complete legal health record.[facility]
--- OUTSIDE RECORDS SUMMARY | 2025-10-06 18:47 | XMS_ITS | Encounter Summary ---
Author Organization [facility] Address [address] [place] [address] Care Team Providers Care Cooperative Manager Name Role Phone Iraida Woodruff Primary Care Provider [phone] Encounter Details Date Type Department Care Team (Late st Contact Info) Description 09/19/2025 Lab Requisition [facility] - Main Lab [address] [facility] [place] [address] Malia Gardner PA [address] [place] [address] Encounter for other general examination Social History [...] 2:00 PM EST Office Visit Nephrology - [place] [address] [place] [address] Christopher Pollard MD [address] [place] [address] documented as of this encounter Procedures Procedure Name Priority Date/Time Associated Diagnosis Comments CBC WITH AUTO DIFFERENTIAL Routine 09/19/2025 6:29 AM EDT Encounter for other general examination CBC AND DIFFERENTIAL Routine 09/19/2025 6:29 AM EDT Encounter for other general examination PHOSPHORUS Routine 09/19/2025 6:29 AM EDT Encounter for other general examination MAGNESIUM Routine 09/19/2025 6:29 AM EDT Encounter for other general examination BASIC METABOLIC PANEL Routine 09/19/2025 6:29 AM EDT Encounter for other general examination documented in this encounter Results * (ABNORMAL) CBC auto differential (09/19/2025 6:29 AM EDT) WBC 4.2(L) 4.8 - 10.8 K/mcL LAB HEMETOLOGY METHOD 09/19/2025 9:07 AM [facility] RBC 4.10 3.80 - 4.80 M/mcL LAB HEMETOLOGY METHOD 09/19/2025 9:07 AM [facility] Hemoglobin 11.3(L) 11.5 - 16.0 g/dL LAB HEMETOLOGY METHOD 09/19/2025 9:07 AM [facility] Hematocrit 35.8 35.0 - 47.0 % LAB HEMETOLOGY METHOD 09/19/2025 9:07 AM [facility] MCV 88.4 79.0 - 98.0 FL LAB HEMETOLOGY METHOD 09/19/2025 9:07 AM [facility] MCH 27.9 27.0 - 32.0 pcg LAB HEMETOLOGY METHOD 09/19/2025 9:07 AM [facility] MCHC 31.6(L) 32.0 - 37.0 g/dL LAB HEMETOLOGY METHOD 09/19/2025 9:07 AM [facility] RDW 16.5(H) 11.0 - 15.0 % LAB HEMETOLOGY METHOD 09/19/2025 9:07 AM [facility] Platelets 217 130 - 400 K/mcL LAB HEMETOLOGY METHOD 09/19/2025 9:07 AM [facility] MPV 11.9(H) 7.0 - 11.0 FL LAB HEMETOLOGY METHOD 09/19/2025 9:07 AM [facility] NRBC 0.0 <1.0 % LAB HEMETOLOGY METHOD 09/19/2025 9:07 AM [facility] NRBC Absolute 0.00 <0.10 K/mcL LAB HEMETOLOGY METHOD 09/19/2025 9:07 AM [facility] Neutrophils Relative 42.9 % LAB HEMETOLOGY METHOD 09/19/2025 9:07 AM [facility] Lymphocytes Relative 41.0 % LAB HEMETOLOGY METHOD 09/19/2025 9:07 AM [facility] Monocytes Relative 13.0 % LAB HEMETOLOGY METHOD 09/19/2025 9:07 AM [facility] Eosinophils Relative 1.9 % LAB HEMETOLOGY METHOD 09/19/2025 9:07 AM [facility] Basophils Relative 0.7 % LAB HEMETOLOGY METHOD 09/19/2025 9:07 AM [facility] Immature Granulocytes Relative 0.5 % LAB HEMETOLOGY METHOD 09/19/2025 9:07 AM [facility] Neutrophils Absolute 1.82 1.50 - 7.00 K/mcL LAB HEMETOLOGY METHOD 09/19/2025 9:07 AM [facility] Lymphocytes Absolute 1.74 1.00 - 5.00 K/mcL LAB HEMETOLOGY METHOD 09/19/2025 9:07 AM [facility] Monocytes Absolute 0.55 0.20 - 1.00 K/mcL LAB HEMETOLOGY METHOD 09/19/2025 9:[address] [facility] Eosinophils Absolute 0.08 0.00 - 0.50 K/[facility] LAB HEMETOLOGY METHOD 09/19/2025 9:[address] [facility] Basophils Absolute 0.03 0.00 - 0.20 K/[facility] LAB HEMETOLOGY METHOD 09/19/2025 9:[address] [facility] Immature Granulocytes Absolute 0.02 0.00 - 0.03 K/[facility] LAB HEMETOLOGY METHOD 09/19/2025 9:[address] [facility] Blood Venous blood specimen / Unknown Venipuncture / Unknown 09/19/2025 6:29 AM EDT 09/19/2025 8:39 AM EDT us Malia LUNA LAB BLOOD ORDERABLES Final Resul t Performing Organization Address City/[facility]/ZIP Co de Phone Number [facility] [address] [place] [address], [place] [phone] * Magnesium (09/19/2025 6:29 AM EDT) Magnesium 2.1 1.9 - 2.6 mg/dL LAB CHEMISTRY METHOD 09/19/2025 9:[address] [facility] Blood Venous blood specimen / Unknown Venipuncture / Unknown 09/19/2025 6:29 AM EDT 09/19/2025 8:39 AM EDT us Malia LUNA LAB BLOOD ORDERABLES Final Resul t [facility] [address] [place] [address], [place] [phone] * Basic metabolic panel (09/19/2025 6:29 AM EDT) Sodium 140 133 - 145 mmol/L LAB CHEMISTRY METHOD 09/19/2025 9:25 AM [facility] Potassium 4.3 3.5 - 5.5 mmol/L LAB CHEMISTRY METHOD 09/19/2025 9:25 AM [facility] Chloride 109 96 - 110 mmol/L LAB CHEMISTRY METHOD 09/19/2025 9:25 AM [facility] CO2 25 21 - 32 mmol/L LAB CHEMISTRY METHOD 09/19/2025 9:25 AM [facility] Anion Gap 6 3 - 11 LAB CHEMISTRY METHOD 09/19/2025 9:25 AM [facility] Glucose 74 70 - 100 mg/dL LAB CHEMISTRY METHOD 09/19/2025 9:25 AM [facility] BUN 10 5 - 25 mg/dL LAB CHEMISTRY METHOD 09/19/2025 9:25 AM [facility] Creatinine 0.55 0.50 - 1.10 mg/dL LAB CHEMISTRY METHOD 09/19/2025 9:25 AM [facility] eGFR 130 >=60 mL/min/1. 73m2 LAB CHEMISTRY METHOD 09/19/2025 9:25 AM [facility] Comment:Calculation based on the Chronic Kidney Disease Epidemiology Collaboration (CKD-EPI) equation refit without adjustment for race. BUN/Creatinine Ratio 18.2 LAB CHEMISTRY METHOD 09/19/2025 9:25 AM [facility] Calcium 9.2 8.5 - 10.5 mg/dL LAB CHEMISTRY METHOD 09/19/2025 9:25 AM [facility] Blood Venous blood specimen / Unknown Venipuncture / Unknown 09/19/2025 6:29 AM EDT 09/19/2025 8:39 AM EDT us Malia LUNA LAB BLOOD ORDERABLES Final Resul t [facility] [address] [place] [address], * Phosphorus (09/19/2025 6:29 AM EDT) Phosphorus 4.5 2.5 - 4.5 mg/dL LAB CHEMISTRY METHOD 09/19/2025 9:[address] [facility] Blood Venous blood specimen / Unknown Venipuncture / Unknown 09/19/2025 6:29 AM EDT 09/19/2025 8:39 AM EDT us Malia LUNA LAB BLOOD ORDERABLES Final Resul t [facility] [address] [place] [address], documented in this encounter Visit Diagnoses Diagnosis Encounter for other general examination documented in this encounter Care Teams Cooperative Manager Relationship Specialty Start Date End Date Iraida Woodruff PA [address] [place] [address], [address] [place] [address] PCP - General 08/23/25 documented as of this encounter
--- OUTSIDE RECORDS SUMMARY | 2025-10-06 18:47 | XMS_ITS | Encounter Summary ---
Author Organization [facility] Address [address] [place] [address] Care Team Providers Care Benefits Technician Name Role Phone Iraida Woodruff Primary Care Provider [phone] Encounter Details Date Type Department Care Team (Late Contact Info) Description 09/13/2025 Lab Requisition [facility] - Main Lab [address] [place] [address] Ria Vivas MD [address] [place] [address] Other truck terminal manager (current) drug therapy Social History Tobacco Use [...] 2:00 PM EST Office Visit Nephrology - [address] [place] [address] Christopher Pollard MD [address] [place] [address] documented as of this encounter Procedures Procedure Name Priority Date/Time Associated Diagnosis Comments CBC WITH AUTO DIFFERENTIAL Routine 09/13/2025 6:38 AM EDT Other group home (current) drug therapy CBC AND DIFFERENTIAL Routine 09/13/2025 6:38 AM EDT Other truck terminal manager (current) drug therapy COMPREHENSIVE METABOLIC PANEL Routine 09/13/2025 6:38 AM EDT Other truck terminal manager (current) drug therapy documented in this encounter Results * (ABNORMAL) CBC auto differential (09/13/2025 6:38 AM EDT) WBC 3.1(L) 4.8 - 10.8 K/mcL LAB HEMETOLOGY METHOD 09/13/2025 10:18 AM [facility] RBC 4.40 3.80 - 4.80 M/mcL LAB HEMETOLOGY METHOD 09/13/2025 10:18 AM [facility] Hemoglobin 12.0 11.5 - 16.0 g/dL LAB HEMETOLOGY METHOD 09/13/2025 10:18 AM [facility] Hematocrit 38.4 35.0 - 47.0 % LAB HEMETOLOGY METHOD 09/13/2025 10:18 AM [facility] MCV 87.9 79.0 - 98.0 FL LAB HEMETOLOGY METHOD 09/13/2025 10:18 AM [facility] MCH 27.5 27.0 - 32.0 pcg LAB HEMETOLOGY METHOD 09/13/2025 10:18 AM [facility] MCHC 31.3(L) 32.0 - 37.0 g/dL LAB HEMETOLOGY METHOD 09/13/2025 10:18 AM [facility] RDW 16.9(H) 11.0 - 15.0 % LAB HEMETOLOGY METHOD 09/13/2025 10:18 AM [facility] Platelets 209 130 - 400 K/mcL LAB HEMETOLOGY METHOD 09/13/2025 10:18 AM [facility] MPV 12.3(H) 7.0 - 11.0 FL LAB HEMETOLOGY METHOD 09/13/2025 10:18 AM [facility] NRBC 0.0 <1.0 % LAB HEMETOLOGY METHOD 09/13/2025 10:18 AM [facility] NRBC Absolute 0.00 <0.10 K/mcL LAB HEMETOLOGY METHOD 09/13/2025 10:18 AM [facility] Neutrophils Relative 40.5 % LAB HEMETOLOGY METHOD 09/13/2025 10:18 AM [facility] Lymphocytes Relative 43.0 % LAB HEMETOLOGY METHOD 09/13/2025 10:18 AM [facility] Monocytes Relative 13.9 % LAB HEMETOLOGY METHOD 09/13/2025 10:18 AM [facility] Eosinophils Relative 1.3 % LAB HEMETOLOGY METHOD 09/13/2025 10:18 AM [facility] Basophils Relative 1.0 % LAB HEMETOLOGY METHOD 09/13/2025 10:18 AM [facility] Immature Granulocytes Relative 0.3 % LAB HEMETOLOGY METHOD 09/13/2025 10:18 AM [facility] Neutrophils Absolute 1.25(L) 1.50 - 7.00 K/mcL LAB HEMETOLOGY METHOD 09/13/2025 10:18 AM [facility] Lymphocytes Absolute 1.33 1.00 - 5.00 K/mcL LAB HEMETOLOGY METHOD 09/13/2025 10:18 AM [facility] Monocytes Absolute 0.43 0.20 - 1.00 K/mcL LAB HEMETOLOGY METHOD 09/13/2025 10:18 AM [facility] Eosinophils Absolute 0.04 0.00 - 0.50 K/mcL LAB HEMETOLOGY METHOD 09/13[facility]25 [facility] Basophils Absolute 0.03 0.00 - 0.20 K/mcL LAB HEMETOLOGY METHOD 09/13/2025 10:18 AM [facility] Immature Granulocytes Absolute 0.01 0.00 - 0.03 K/mcL LAB HEMETOLOGY METHOD 09/13/2025 10:18 AM [facility] Blood Venous blood specimen / Unknown Venipuncture / Unknown 09/13/2025 6:38 AM EDT 09/13/2025 8:48 AM EDT us Ria Vivas MD LAB BLOOD ORDERABLES Final Resu lt [facility] [address] [place] [address], [place] [phone] * (ABNORMAL) Comprehensive metabolic panel (09/13/2025 6:38 AM EDT) Sodium 141 133 - 145 mmol/L LAB CHEMISTRY METHOD 09/13/2025 11:22 AM [facility] Potassium 4.2 3.5 - 5.5 mmol/L LAB CHEMISTRY METHOD 09/13/2025 11:22 AM [facility] Chloride 108 96 - 110 mmol/L LAB CHEMISTRY METHOD 09/13/2025 11:22 AM [facility] CO2 25 21 - 32 mmol/L LAB CHEMISTRY METHOD 09/13/2025 11:22 AM [facility] Anion Gap 8 3 - 11 LAB CHEMISTRY METHOD 09/13/2025 11:22 AM [facility] Glucose 71 70 - 100 mg/dL LAB CHEMISTRY METHOD 09/13/2025 11:22 AM [facility] BUN 14 5 - 25 mg/dL LAB CHEMISTRY METHOD 09/13/2025 11:22 AM [facility] Creatinine 0.58 0.50 - 1.10 mg/dL LAB CHEMISTRY METHOD 09/13/2025 11:22 AM [facility] eGFR 128 >=60 mL/min/1. 73m2 LAB CHEMISTRY METHOD 09/13/2025 11:22 AM [facility] Comment:Calculation based on the Chronic Kidney Disease Epidemiology Collaboration (CKD-EPI) equation refit without adjustment for race. BUN/Creatinine Ratio 24.1 LAB CHEMISTRY METHOD 09/13/2025 11:22 AM [facility] Calcium 9.3 8.5 - 10.5 mg/dL LAB CHEMISTRY METHOD 09/13/2025 11:22 AM [facility] AST (SGOT) 51(H) 10 - 42 unit/L LAB CHEMISTRY METHOD 09/13/2025 11:22 AM [facility] ALT (SGPT) 67(H) 10 - 60 unit/L LAB CHEMISTRY METHOD 09/13/2025 11:22 AM [facility] Alkaline Phosphatase 47 42 - 121 unit/L LAB CHEMISTRY METHOD 09/13/2025 11:22 AM [facility] Total Protein 7.8 6.0 - 8.0 g/dL LAB CHEMISTRY METHOD 09/13/2025 11:22 AM [facility] Albumin 2.9(L) 3.2 - 5.0 g/dL LAB CHEMISTRY METHOD 09/13/2025 11:22 AM [facility] Total Bilirubin 0.5 0.0 - 1.4 mg/dL LAB CHEMISTRY METHOD 09/13/2025 11:22 AM [facility] Blood Venous blood specimen / Unknown Venipuncture / Unknown 09/13/2025 6:38 AM EDT 09/13/2025 8:48 AM EDT us Ria Vivas MD LAB BLOOD ORDERABLES Final Resu lt [facility] [address] [place] [address], documented in this encounter Visit Diagnoses Diagnosis Other group home (current) drug therapy documented in this encounter Care Teams Benefits Technician Relationship Specialty Start Date End Date Iraida Woodruff PA [address] [place] [address], [address] [place] [address] PCP - General 08/23/25 documented as of this encounter
--- OUTSIDE RECORDS SUMMARY | 2025-10-06 18:47 | XMS_ITS | Encounter Summary ---
Author Organization [facility] Address [address] [place] [address] Phone Care Team Providers Care Municipal Bond Trader Name Role Phone Darin Restrepo MD Primary Care Provider + Encounter Details Date Type Department Care Team (Late st Contact Info) Description 01/22/2024 Procedure Pass [facility], Ct Scan - [facility] [address] [place] [address] Social History Tobacco Use Types Packs/Day Years [...] documented as of this encounter Care Teams Municipal Bond Trader Relationship Specialty Start Date End Date Darin Restrepo MD [address] [place] [address] PCP - General Internal Medicine 11/30/21 documented as of this encounter Additional Source Comments The information contained in this document represents components of the legal health record. It is not the complete legal health record.[facility]
--- OUTSIDE RECORDS SUMMARY | 2025-10-06 18:47 | XMS_ITS | Encounter Summary ---
Author Organization [facility] Address [address] [address] [facility] [address] [place] [address] Phone Care Team Providers Care System Controller Name Role Phone Darin Restrepo MD Primary Care Provider + Encounter Details Date Type Department Care Team (Late st Contact Info) Description 10/10/2022 Procedure Pass [facility], Ct Scan - [address] [address] Social History Tobacco Use Types Packs/Day Years [...] documented as of this encounter Care Teams System Controller Relationship Specialty Start Date End Date Darin Restrepo MD [address] [place] [phone] (work) PCP - General Internal Medicine 11/30/21 documented as of this encounter Additional Source Comments The information contained in this document represents components of the legal health record. It is not the complete legal health record.[facility]
--- OUTSIDE RECORDS SUMMARY | 2025-10-06 18:47 | XMS_ITS | Encounter Summary ---
Author Organization [facility] Address [address] [place] [address] Care Team Providers Care Health And Safety Tech Name Role Phone Iraida Woodruff Primary Care Provider [phone] Encounter Details Date Type Department Care Team (Late st Contact Info) Description 09/23/2025 Lab Requisition [facility] - Main Lab [address] [facility] [place] [address] Sushma Montana PA [address] [place] [address] Encounter for other general examination Social History [...] 2:00 PM EST Office Visit Nephrology - [address] [place] [address] Christopher Pollard MD [address] [place] [address] documented as of this encounter Procedures Procedure Name Priority Date/Time Associated Diagnosis Comments COMPREHENSIVE METABOLIC PANEL Routine 09/23/2025 7:00 AM EDT Encounter for other general examination documented in this encounter Results * (ABNORMAL) Comprehensive metabolic panel (09/23/2025 7:00 AM EDT) Sodium 138 133 - 145 mmol/L LAB CHEMISTRY METHOD 09/23/2025 11:40 AM [facility] Potassium 3.8 3.5 - 5.5 mmol/L LAB CHEMISTRY METHOD 09/23/2025 11:40 AM [facility] Chloride 108 96 - 110 mmol/L LAB CHEMISTRY METHOD 09/23/2025 11:40 AM [facility] CO2 24 21 - 32 mmol/L LAB CHEMISTRY METHOD 09/23/2025 11:40 AM [facility] Anion Gap 6 3 - 11 LAB CHEMISTRY METHOD 09/23/2025 11:40 AM [facility] Glucose 71 70 - 100 mg/dL LAB CHEMISTRY METHOD 09/23/2025 11:40 AM [facility] BUN 11 5 - 25 mg/dL LAB CHEMISTRY METHOD 09/23/2025 11:40 AM [facility] Creatinine 0.59 0.50 - 1.10 mg/dL LAB CHEMISTRY METHOD 09/23/2025 11:40 AM [facility] eGFR 128 >=60 mL/min/1. 73m2 LAB CHEMISTRY METHOD 09/23/2025 11:40 AM [facility] Comment:Calculation based on the Chronic Kidney Disease Epidemiology Collaboration (CKD-EPI) equation refit without adjustment for race. BUN/Creatinine Ratio 18.6 LAB CHEMISTRY METHOD 09/23/2025 11:40 AM [facility] Calcium 9.2 8.5 - 10.5 mg/dL LAB CHEMISTRY METHOD 09/23/2025 11:40 AM [facility] AST (SGOT) 30 10 - 42 unit/L LAB CHEMISTRY METHOD 09/23/2025 11:40 AM [facility] ALT (SGPT) 52 10 - 60 unit/L LAB CHEMISTRY METHOD 09/23/2025 11:40 AM EDT [facility] Alkaline Phosphatase 41(L) 42 - 121 unit/L LAB CHEMISTRY METHOD 09/23/2025 11:40 AM EDT [facility] Total Protein 6.9 6.0 - 8.0 g/dL LAB CHEMISTRY METHOD 09/23/2025 11:40 AM EDT [facility] Albumin 2.9(L) 3.2 - 5.0 g/dL LAB CHEMISTRY METHOD 09/23/2025 11:40 AM EDT [facility] Total Bilirubin 0.5 0.0 - 1.4 mg/dL LAB CHEMISTRY METHOD 09/23/2025 11:40 AM EDT [facility] Blood Venous blood specimen / Unknown Venipuncture / Unknown 09/23/2025 7:00 AM EDT 09/23/2025 10:45 AM EDT us Sushma LUNA LAB BLOOD ORDERABLES Final Re sult [facility] [address] [place] [address], documented in this encounter Visit Diagnoses Diagnosis Encounter for other general examination documented in this encounter Care Teams Health And Safety Tech Relationship Specialty Start Date End Date Iraida Woodruff PA [address] [place] [address], [address] [place] [address] PCP - General 08/23/25 documented as of this encounter
--- OUTSIDE RECORDS SUMMARY | 2025-10-06 18:47 | XMS_ITS | Encounter Summary ---
Author Organization [facility] Address [address] [place] [address] Care Team Providers Care Vision Mixer Name Role Phone Iraida Woodruff Primary Care Provider [phone] Encounter Details Date Type Department Care Team (Late Contact Info) Description 09/30/2025 Lab Requisition [facility] - Main Lab [address] [facility] [place] [address] Ria Vivas MD [address] [place] [address] Urinary tract infection, site not specified Social [...] 2:00 PM EST Office Visit Nephrology - [address] [place] [address] Christopher Pollard MD [address] [facility] [address] [place] [address] documented as of this encounter Procedures Procedure Name Priority Date/Time Associated Diagnosis Comments URINALYSIS WITH REFLEX MICROSCOPIC Routine 09/30/2025 4:00 AM EST Urinary tract infection, site not specified URINALYSIS WITH REFLEX MICROSCOPIC Routine 09/30/2025 4:00 AM EST Urinary tract infection, site not specified CULTURE URINE Routine 09/30/2025 4:00 AM EST Urinary tract infection, site not specified documented in this encounter Results * (ABNORMAL) Urinalysis with reflex microscopic (09/30/2025 4:00 AM EST) Specific [place] Urine 1.021 1.003 - 1.030 LAB URINALYSIS - AUTOMATED METHOD 09/30/2025 9:09 AM [facility] pH, Urine 5.0 5.0 - 8.0 pH LAB URINALYSIS - AUTOMATED METHOD 09/30/2025 9:09 AM [facility] Leukocytes, Urine Small(A) Negative LAB URINALYSIS - AUTOMATED METHOD 09/30/2025 9:09 AM [facility] Nitrite, Urine Negative Negative LAB URINALYSIS - AUTOMATED METHOD 09/30/2025 9:09 AM [facility] Protein, Urine 100(A) <=Trace mg/dL LAB URINALYSIS - AUTOMATED METHOD 09/30/2025 9:09 AM [facility] Glucose, Urine Negative Negative mg/dL LAB URINALYSIS - AUTOMATED METHOD 09/30/2025 9:09 AM [facility] Ketones, Urine Negative Negative mg/dL LAB URINALYSIS - AUTOMATED METHOD 09/30/2025 9:09 AM [facility] Urobilinogen , Urine 1.0 0.2 - 1.0 mg/dL LAB URINALYSIS - AUTOMATED METHOD 09/30/2025 9:09 AM [facility] Bilirubin, Urine Negative Negative LAB URINALYSIS - AUTOMATED METHOD 09/30/2025 9:09 AM [facility] Blood, Urine Large(A) Negative LAB URINALYSIS - AUTOMATED METHOD 09/30/2025 9:09 AM [facility] RBC, Urine >100(H) 0 - 4 /HPF 09/30/2025 9:09 AM [facility] WBC, Urine 5(H) 0 - 4 /HPF 09/30/2025 9:09 AM [facility] Squamous Epithelial, Urine 5 0 - 60 /LPF 09/30/2025 9:09 AM [facility] Crystals, Urine Heavy Calcium Oxalate crystals. Heavy Amorphous Urate crystals. /LPF 09/30/2025 9:09 AM [facility] Bacteria, Urine Few(A) Negative /HPF 09/30/2025 9:09 AM [facility] Urine Urine specimen obtained by clean catch procedure / Unknown Non-blood Collection / Unknown 09/30/2025 4:00 AM EST 09/30/2025 8:06 AM EST us Ria Vivas MD LAB URINE ORDERABLES Final Resu lt [facility] [address] [place] [address], * (ABNORMAL) Culture urine (09/30/2025 4:00 AM EST) Culture, Urine >=100,000 CFU/mL Staphylococcus epidermidis(A) CHUY 10/02/2025 10:10 AM [facility] Comment: This is an edited result. Previous organism was Staphylococcus coagulase negative on 10/01/2025 at 0735 EST. Urine Urine specimen obtained by clean catch procedure / Unknown Non-blood Collection / Unknown 09/30/2025 4:00 AM EST 09/30/2025 8:06 AM EST Narrative Organism Antibiotic Method Susceptibility Staphylococcus epidermidis Benzylpenicillin CHUY >=0.5 ug/ml: Resistant Staphylococcus epidermidis Oxacillin CHUY <=0.25 ug/ml: Susceptible Staphylococcus epidermidis Gentamicin CHUY <=0.5 ug/ml: Susceptible Staphylococcus epidermidis Ciprofloxacin CHUY >=8 ug/ml: Resistant Staphylococcus epidermidis Levofloxacin CHUY >=8 ug/ml: Resistant Staphylococcus epidermidis Quinupristin/Dalfopristin M IC <=0.25 ug/ml: Susceptible Staphylococcus epidermidis Linezolid CHUY 1 ug/ml: Susceptible Staphylococcus epidermidis Vancomycin CHUY 1 ug/ml: Susceptible Staphylococcus epidermidis Tetracycline CHUY 2 ug/ml: Susceptible Staphylococcus epidermidis Nitrofurantoin CHUY <=16 ug/ml: Susceptible Staphylococcus epidermidis Rifampin CHUY <=0.5 ug/ml: Susceptible us Ria Vivas MD LAB MICROBIOLOGY - GENERAL TREY ALMEIDA Final Result [facility] [address] [place] [address], documented in this encounter Visit Diagnoses Diagnosis Urinary tract infection, site not specified documented in this encounter Care Teams Vision Mixer Relationship Specialty Start Date End Date Iraida Woodruff PA [address] [place] [address], [address] [place] [address] PCP - General 08/23/25 documented as of this encounter
--- OUTSIDE RECORDS SUMMARY | 2025-10-06 18:47 | XMS_ITS | Encounter Summary ---
Author Organization [facility] Address [address] [place] [address] Phone Care Team Providers Care Generator Assembler Name Role Phone Arpita White MD Primary Care Provider Martina Hunter MD Primary Care Provider [phone] Darin Restrepo MD Primary Care Provider + Encounter Details Date Type Department Care Team (Latest Contact Info) Description 10/24/2017 Transcribe Orders [facility] [address] [place] [address] Cameron Jones MD [address] [place] [address] Hirsutism (Primary Dx); Oligomenorrhea, unspecified [...] (10/24/2017 8:29 AM EST) HDL 51 mg/dL [facility] Comment: Interpretation: Risk Level Females Decreased >55mg/dL Average 50-55 mg/dL Increased <50 mg/dL CHOLESTEROL 141 0 - 240 mg/dL [facility] Comment: Pediatric Reference Ranges for 2 to 18 years Acceptable: Less than 170 mg/dL Borderline: 170 - 199 mg/dL High: Greater than or equal to 200 mg/dL TRIGLYCERIDES 73 30 - 160 mg/dL [facility] LDL 75 50 - 129 mg/dL [facility] Comment: LDL levels in terms of risk for coronary heart disease: <100 mg/dL: Optimal 100-129 mg/dL: Near or above optimal 130-159 mg/dL: Borderline high 160-189 mg/dL: High >190 mg/dL: Very High CARDIAC RISK RATIO 2.8(L) 3.3 - 4.4 [facility] Blood 10/24/2017 8:29 AM EST 10/24/2017 8:33 AM EST Cameron Jones MD LAB BLOOD BKR ORDERABLE S Final Result Performing Organization Address City/State/[facility] Co de Phone Number [address] [address] documented in this encounter Visit Diagnoses Diagnosis Hirsutism- Primary Oligomenorrhea, unspecified type documented in this encounter Additional Health Concerns Infection Onset Date Last Indicated Resolved Time CoV-Risk 02/16/2023 02/16/2023 02/27/2023 1:22 AM EDT CoV-Risk 01/21/2024 01/21/2024 02/01/2024 1:22 AM EST documented as of this encounter Care Teams Generator Assembler Relationship Specialty Start Date End Date Arpita White MD [address] [place] [address] PCP - General Pediatrics 10/24/17 11/22/19 Martina Torres MD [address] [place] [address] PCP - General Internal Medicine 11/23/19 11/29/21 Darin Restrepo MD [address] [place] [address] PCP - General Internal Medicine 11/30/21 documented as of this encounter Additional Source Comments The information contained in this document represents components of the legal health record. It is not the complete legal health record.[facility]
--- OUTSIDE RECORDS SUMMARY | 2025-10-06 18:47 | XMS_ITS | Encounter Summary ---
Author Organization [facility] Address [address] [place] [address] Care Team Providers Care Nanotechnology Engineering Technician Name Role Phone Iraida Woodruff Primary Care Provider [phone] Encounter Details Date Type Department Care Team (Late st Contact Info) Description 08/22/[address] [facility] - Main Lab [address] [facility] [place] [address] Lasha Moctezuma PA [address] [place] [address] Urinary tract infection, site not specified Social [...] 2:00 PM EST Office Visit Nephrology - [place] [id number] [place] [address] Christopher Pollard MD [address] [place] [id number] documented as of this encounter Procedures Procedure Name Priority Date/Time Associated Diagnosis Comments CULTURE URINE Routine 08/22/2025 12:00 AM EDT Urinary tract infection, site not specified documented in this encounter Results * Culture urine (08/22/2025 12:00 AM EDT) Culture, Urine 50,000-99,000 CFU/mL Mixed urogenital joel, no uropathogens present. Suggest repeat specimen if clinically indicated. 08/23/2025 1:26 PM EDT [facility] Urine Urine specimen obtained by clean catch procedure / Unknown 08/22/2025 08/22/2025 6:35 PM EDT Lasha LUNA LAB MICROBIOLOGY - GENERAL TREY ALMEIDA Final Result [facility] [address] [place] [address], documented in this encounter Visit Diagnoses Diagnosis Urinary tract infection, site not specified documented in this encounter Care Teams Nanotechnology Engineering Technician Relationship Specialty Start Date End Date Iraida Woodruff PA [address] [place] [address], [address] [place] [address] PCP - General 08/23/25 documented as of this encounter
--- OUTSIDE RECORDS SUMMARY | 2025-10-06 18:47 | XMS_ITS | Encounter Summary ---
Author Organization [facility] Address [address] [place] [address] Care Team Providers Care Funeral Greeter Name Role Phone Iraida Woodruff Primary Care Provider [phone] Encounter Details Date Type Department Care Team (Late Contact Info) Description 09/30/2025 Lab Requisition [facility] - Main Lab [address] [facility] [place] [address] Ria Vivas MD [address] [place] [id number] Urinary tract infection, site not specified; Bariatric surgery status; Nutritional deficiency, unspecified; Hypokalemia; Essential (primary) hypertension; Obesity, unspecified; Guillain-Sequatchie syndrome (CMS/HCC V24) Social History Tobacco Use Types Packs/Day Years [...] 2:00 PM EST Office Visit Nephrology - [place] [address] [place] [phone] Christopher Pollard MD [address] [facility] [address] [place] [phone] documented as of this encounter Procedures Procedure Name Priority Date/Time Associated Diagnosis Comments CBC WITH AUTO DIFFERENTIAL Routine 09/30/2025 6:30 AM EST Urinary tract infection, site not specified Bariatric surgery status Nutritional deficiency, unspecified Hypokalemia Essential (primary) hypertension Obesity, unspecified Guillain-Sequatchie syndrome (CMS/HCC V24) VITAMIN D 25 HYDROXY Routine 09/30/2025 6:30 AM EST Urinary tract infection, site not specified Bariatric surgery status Nutritional deficiency, unspecified Hypokalemia Essential (primary) hypertension Obesity, unspecified Guillain-Sequatchie syndrome (CMS/HCC V24) CBC AND DIFFERENTIAL Routine 09/30/2025 6:30 AM EST Urinary tract infection, site not specified Bariatric surgery status Nutritional deficiency, unspecified Hypokalemia Essential (primary) hypertension Obesity, unspecified Guillain-Sequatchie syndrome (CMS/HCC V24) THYROID STIMULATING HORMONE Routine 09/30/2025 6:30 AM EST Urinary tract infection, site not specified Bariatric surgery status Nutritional deficiency, unspecified Hypokalemia Essential (primary) hypertension Obesity, unspecified Guillain-Sequatchie syndrome (CMS/HCC V24) FOLATE Routine 09/30/2025 6:30 AM EST Urinary tract infection, site not specified Bariatric surgery status Nutritional deficiency, unspecified Hypokalemia Essential (primary) hypertension Obesity, unspecified Guillain-Sequatchie syndrome (CMS/HCC V24) VITAMIN B12 Routine 09/30/2025 6:30 AM EST Urinary tract infection, site not specified Bariatric surgery status Nutritional deficiency, unspecified Hypokalemia Essential (primary) hypertension Obesity, unspecified Guillain-Sequatchie syndrome (CMS/HCC V24) COMPREHENSIVE METABOLIC PANEL Routine 09/30/2025 6:30 AM EST Urinary tract infection, site not specified Bariatric surgery status Nutritional deficiency, unspecified Hypokalemia Essential (primary) hypertension Obesity, unspecified Guillain-Sequatchie syndrome (CMS/HCC V24) documented in this encounter Results * (ABNORMAL) CBC auto differential (09/30/2025 6:30 AM EST) [facility] WBC 3.9(L) 4.8 - 10.8 K/mcL LAB HEMETOLOGY METHOD 09/30/2025 8:24 AM [facility] RBC 4.00 3.80 - 4.80 M/mcL LAB HEMETOLOGY METHOD 09/30/2025 8:24 AM [facility] Hemoglobin 11.4(L) 11.5 - 16.0 g/dL LAB HEMETOLOGY METHOD 09/30/2025 8:24 AM [facility] Hematocrit 36.2 35.0 - 47.0 % LAB HEMETOLOGY METHOD 09/30/2025 8:24 AM [facility] MCV 89.6 79.0 - 98.0 FL LAB HEMETOLOGY METHOD 09/30/2025 8:24 AM [facility] MCH 28.2 27.0 - 32.0 pcg LAB HEMETOLOGY METHOD 09/30/2025 8:24 AM [facility] MCHC 31.5(L) 32.0 - 37.0 g/dL LAB HEMETOLOGY METHOD 09/30/2025 8:24 AM [facility] RDW 16.9(H) 11.0 - 15.0 % LAB HEMETOLOGY METHOD 09/30/2025 8:24 AM [facility] Platelets 211 130 - 400 K/mcL LAB HEMETOLOGY METHOD 09/30/2025 8:24 AM [facility] MPV 11.0 7.0 - 11.0 FL LAB HEMETOLOGY METHOD 09/30/2025 8:24 AM [facility] NRBC 0.0 <1.0 % LAB HEMETOLOGY METHOD 09/30/2025 8:24 AM [facility] NRBC Absolute 0.00 <0.10 K/mcL LAB HEMETOLOGY METHOD 09/30/2025 8:24 AM [facility] Neutrophils Relative 51.0 % LAB HEMETOLOGY METHOD 09/30/2025 8:24 AM [facility] Lymphocytes Relative 33.8 % LAB HEMETOLOGY METHOD 09/30/2025 8:24 AM [facility] Monocytes Relative 12.7 % LAB HEMETOLOGY METHOD 09/30/2025 8:24 AM [facility] Eosinophils Relative 1.5 % LAB HEMETOLOGY METHOD 09/30/2025 8:24 AM [facility] Basophils Relative 0.5 % LAB HEMETOLOGY METHOD 09/30/2025 8:24 AM [facility] Immature Granulocytes Relative 0.5 % LAB HEMETOLOGY METHOD 09/30/2025 8:24 AM [facility] Neutrophils Absolute 2.01 1.50 - 7.00 K/mcL LAB HEMETOLOGY METHOD 09/30/2025 8:24 AM [facility] Lymphocytes Absolute 1.33 1.00 - 5.00 K/mcL LAB HEMETOLOGY METHOD 09/30/2025 8:24 AM [facility] Monocytes Absolute 0.50 0.20 - 1.00 K/mcL LAB HEMETOLOGY METHOD 09/30/2025 8:24 AM [facility] Eosinophils Absolute 0.06 0.00 - 0.50 K/mcL LAB HEMETOLOGY METHOD 09/30/2025 8:24 AM [facility] Basophils Absolute 0.02 0.00 - 0.20 K/mcL LAB HEMETOLOGY METHOD 09/30/2025 8:24 AM [facility] Immature Granulocytes Absolute 0.02 0.00 - 0.03 K/mcL LAB HEMETOLOGY METHOD 09/30/2025 8:24 AM [facility] Blood Venous blood specimen / Unknown Venipuncture / Unknown 09/30/2025 6:30 AM EST 09/30/2025 7:42 AM EST us Ria Vivas MD LAB BLOOD ORDERABLES Final Resu lt Performing Organization Address City/[facility]/ZIP Co de Phone Number [facility] [address] [place] [address], [place] [phone] * (ABNORMAL) Vitamin D 25 hydroxy (09/30/2025 6:30 AM EST) [facility] Vit D, 25-Hydroxy 29.9(L) 30.0 - 80.0 ng/mL LAB CHEMISTRY METHOD 09/30/2025 10:22 AM EST [facility] Blood Venous blood specimen / Unknown Venipuncture / Unknown 09/30/2025 6:30 AM EST 09/30/2025 7:42 AM EST us Ria Vivas MD LAB BLOOD ORDERABLES Final Resu lt Performing Organization Address [facility] de Phone Number [facility] [address] [place] [address], [place] [phone] * Vitamin B12 (09/30/2025 6:30 AM EST) [facility] Vitamin B-12 554 250 - 900 pcg/mL LAB CHEMISTRY METHOD 09/30/2025 9:21 AM EST [facility] Blood Venous blood specimen / Unknown Venipuncture / Unknown 09/30/2025 6:30 AM EST 09/30/2025 7:42 AM EST us Ria Vivas MD LAB BLOOD ORDERABLES Final Resu lt Performing Organization Address City/[facility]/ZIP Co de Phone Number [facility] [address] [place] [address], [place] [phone] * (ABNORMAL) Folate (09/30/2025 6:30 AM EST) [facility] Folate 18.5(H) 2.8 - 17.0 ng/ml LAB CHEMISTRY METHOD 09/30/2025 9:21 AM EST [facility] Blood Venous blood specimen / Unknown Venipuncture / Unknown 09/30/2025 6:30 AM EST 09/30/2025 7:42 AM EST Ria Vivas MD LAB BLOOD ORDERABLES Final Resu lt [facility] [address] [place] [address], [place] [phone] * Thyroid stimulating hormone (09/30/2025 6:30 AM EST) Pathologist [facility] TSH 2.13 0.40 - 4.00 mcIU/mL LAB CHEMISTRY METHOD 09/30/2025 10:23 AM EST [facility] Blood Venous blood specimen / Unknown Venipuncture / Unknown 09/30/2025 6:30 AM EST 09/30/2025 7:42 AM EST Ria Vivas MD LAB BLOOD ORDERABLES Final Resu lt Performing Organization Address City/[facility]/ZIP Co de Phone Number [facility] [address] [place] [address], [place] [phone] * (ABNORMAL) Comprehensive metabolic panel (09/30/2025 6:30 AM EST) Pathologist [facility] Sodium 139 133 - 145 mmol/L LAB CHEMISTRY METHOD 09/30/2025 8:57 AM EST [facility] Potassium 3.8 3.5 - 5.5 mmol/L LAB CHEMISTRY METHOD 09/30/2025 8:57 AM EST [facility] Chloride 109 96 - 110 mmol/L LAB CHEMISTRY METHOD 09/30/2025 8:57 AM EST [facility] CO2 23 21 - 32 mmol/L LAB CHEMISTRY METHOD 09/30/2025 8:57 AM EST [facility] Anion Gap 7 3 - 11 LAB CHEMISTRY METHOD 09/30/2025 8:57 AM [facility] Glucose 76 70 - 100 mg/dL LAB CHEMISTRY METHOD 09/30/2025 8:57 AM [facility] BUN 7 5 - 25 mg/dL LAB CHEMISTRY METHOD 09/30/2025 8:57 AM [facility] Creatinine 0.60 0.50 - 1.10 mg/dL LAB CHEMISTRY METHOD 09/30/2025 8:57 AM [facility] eGFR 127 >=60 mL/min/1. 73m2 LAB CHEMISTRY METHOD 09/30/2025 8:57 AM [facility] Comment:Calculation based on the Chronic Kidney Disease Epidemiology Collaboration (CKD-EPI) equation refit without adjustment for race. BUN/Creatinine Ratio 11.7 LAB CHEMISTRY METHOD 09/30/2025 8:57 AM [facility] Calcium 9.1 8.5 - 10.5 mg/dL LAB CHEMISTRY METHOD 09/30/2025 8:57 AM [facility] AST (SGOT) 34 10 - 42 unit/L LAB CHEMISTRY METHOD 09/30/2025 8:57 AM [facility] ALT (SGPT) 41 10 - 60 unit/L LAB CHEMISTRY METHOD 09/30/2025 8:57 AM [facility] Alkaline Phosphatase 40(L) 42 - 121 unit/L LAB CHEMISTRY METHOD 09/30/2025 8:57 AM [facility] Total Protein 6.6 6.0 - 8.0 g/dL LAB CHEMISTRY METHOD 09/30/2025 8:57 AM [facility] Albumin 3.2 3.2 - 5.0 g/dL LAB CHEMISTRY METHOD 09/30/2025 8:57 AM [facility] Total Bilirubin 0.6 0.0 - 1.4 mg/dL LAB CHEMISTRY METHOD 09/30/2025 8:57 AM [facility] Blood Venous blood specimen / Unknown Venipuncture / Unknown 09/30/2025 6:30 AM EST 09/30/2025 7:42 AM EST us Ria Vivas MD LAB BLOOD ORDERABLES Final Resu lt [facility] ([facility]) [facility] [address] [place] [address], documented in this encounter Visit Diagnoses Diagnosis Urinary tract infection, site not specified Bariatric surgery status Nutritional deficiency, unspecified Hypokalemia Hypopotassemia Essential (primary) hypertension Unspecified essential hypertension Obesity, unspecified Guillain-Sequatchie syndrome (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
--- OUTSIDE RECORDS SUMMARY | 2025-10-06 18:48 | XMS_ITS | Clinical Summary ---
Author Organization [facility] [address] [place] [address] [place] [phone] Phone Care Team Providers Care Brazing Machine Operator Name Role Phone Iraida Woodruff Primary Care Provider [phone] Allergies Active Allergy Reactions Criticality Noted Date Comments Cephalexin 10/23/2020 Burning sensation all over body. Doxycycline Hyclate 10/23/2020 hives Penaten 02/20/2023 Penicillin G Hives High 02/17/2023 Pt stated had bad reaction. She had hives all over the body. Sulfa (Sulfonamide Antibiotics) 03/06/2021 Medications cloNIDine ([id number] ) 0.3 mg/[address] 1 Patch onto the skin once a week. 4 Active emollient comb no.2, bulk, ointment Apply 0.5 g topically 2 times daily. 5% gabapentin ointment Sig: Apply 0.5 g daily to affected area Patient phone number: [phone] (home) 3 Active cholecalciferol (VITAMIN D-3) 1,250 [...] processing disorder 08/27/2024 Overview (08/27/2024): according to [facility] hearing report dated 01-15-13 Report from [...] obesity with BMI of 6 0.0-69.9, adult ([facility] V24, [facility] V28) 08/27/2024 Chlamydia 11/14/2023 [...] Recommended ACT 06-06 = 20 05-04-15: [facility] - asthma exacerbation as of 08-08- no prob since 03-27-16: [facility]- 5 d pred 40mg As of 11-08- [...] eval confirms dx of ADHD- accommodations in [employer], [employer], [employer] and [employer]- full inclusion 03-07-15: normal [...] Encounters Date Type Department Care Team Description 09/30/2025 Lab Requisition [facility] - Main Lab [address] [facility] [place] [phone] Ria Vivas MD Urinary tract infection, site not specified 09/30/2025 Lab Requisition [facility] - Main Lab [address] [place] [phone] Ria Vivas MD Urinary tract infection, site not specified; Bariatric surgery status; Nutritional deficiency, unspecified; Hypokalemia; Essential (primary) hypertension; Obesity, unspecified; Guillain-Rydal syndrome ([facility] V24) 09/23/2025 Lab Requisition [facility] Lab [address] [place] [phone] Sushma Montana PA Encounter for other general examination 09/19/2025 Lab Requisition [facility] Lab [address] [place] [phone] Malia Gardner PA Encounter for other general examination 09/13/2025 Lab Requisition [facility] Lab [address] [place] [phone] Ria Vivas MD Other salvage determiner (current) drug therapy 09/10/2025 Lab Requisition [facility] Lab [address] [place] [phone] Isabella Wright PA Encounter for other general examination 08/22/2025 Lab Requisition [facility] Lab [address] [place] [phone] Lasha Moctezuma PA Urinary tract infection, site not specified from Last 3 Months Immunizations Immunization Administration Dates Next Due DTaP (Infanrix) 6wks to less than 7yo ,07/17/2000,1999,09/04,1999 EByI-YXZ-GTY (Pentacel) 2mo to less than 5yo 06/18/2000,1999,1999,06/01 H1N1 Inj Preservative Free 12/22/2009 HPV, Quadrivalent 04/30/2013,07/14/2012,04/14/20 12 Hepatitis B (Fozmbwg-P-Xkrmt , Recombivax HB-Adult) 19yo and older 07/12/2020,02/09/2020,01/05/2020 [...] 04/27/2003,06/12/2000 Meningococcal MCV4P 08/08/2015,04/14/2012 PPD Test 11/10/2019 Nasseo SARS-CoV-2 COVID-19, mRNA, LNP-S, preservative free 09/04/2021 [...] 01/11/2026 2:00 PM EST [facility] [place] [phone] Christopher Pollard MD [address] [facility] [address] [place] [phone] Health Maintenance Due Date Last Done Comments Pneumococcal Vaccine: Pediatrics (0 to 5 Years) and At-Risk Patients (6 to 49 Years) (1 of 1 - PPSV23, PCV20, or PCV21) 10/26/2019 08/31/2019, 04/14/2001, 07/17/2000 HIV Screening 11/02/2022 Hepatitis C Screening 11/02/2022 Medicare Annual Wellness Visit 11/02/2022 Social Influencers of Health Screening 11/02/2022 Depression Screening 11/24/2024 10/06/2023 COVID-19 Vaccine ( season) 2025 09/04/2021, 01/29/2021, 01/08/2021 Influenza Vaccine (#1) 2025 , 09/04/2021, 08/26/2019, Additional history exists Cervical Cancer Screening: Pap Smear 09/05/2025 09/05/2022, 09/05/2022, 09/05/2022 Hypertension/CHF/CAD Annual BMP Blood Test 09/30/2026 09/30/2025, 09/23/2025, 09/19/2025, Additional history exists Cholesterol Screening (Lipid Panel) 12/06/2027 12/06/2022 DTaP,Tdap,and [...] unspecified Hypokalemia Essential (primary) hypertension Obesity, unspecified Guillain-Rydal syndrome (CMS/HCC V24) VITAMIN D 25 HYDROXY Routine 09/30/2025 6:30 AM EST Urinary tract infection, site not specified Bariatric surgery status Nutritional deficiency, unspecified Hypokalemia Essential (primary) hypertension Obesity, unspecified Guillain-Rydal syndrome (CMS/HCC V24) VITAMIN B12 Routine 09/30/2025 6:30 AM EST Urinary tract infection, site not specified Bariatric surgery status Nutritional deficiency, unspecified Hypokalemia Essential (primary) hypertension Obesity, unspecified Guillain-Rydal syndrome (CMS/HCC V24) FOLATE Routine 09/30/2025 6:30 AM EST Urinary tract infection, site not specified Bariatric surgery status Nutritional deficiency, unspecified Hypokalemia Essential (primary) hypertension Obesity, unspecified Guillain-Rydal syndrome (CMS/HCC V24) THYROID STIMULATING HORMONE Routine 09/30/2025 6:30 AM EST Urinary tract infection, site not specified Bariatric surgery status Nutritional deficiency, unspecified Hypokalemia Essential (primary) hypertension Obesity, unspecified Guillain-Rydal syndrome (CMS/HCC V24) COMPREHENSIVE METABOLIC PANEL Routine 09/30/2025 6:30 AM EST Urinary tract infection, site not specified Bariatric surgery status Nutritional deficiency, unspecified Hypokalemia Essential (primary) hypertension Obesity, unspecified Guillain-Rydal syndrome ([facility] V24) CBC AND DIFFERENTIAL Routine 09/30/2025 6:30 AM EST Urinary tract infection, site not specified Bariatric surgery status Nutritional deficiency, unspecified Hypokalemia Essential (primary) hypertension Obesity, unspecified Guillain-Rydal syndrome ([facility] V24) URINALYSIS WITH REFLEX MICROSCOPIC Routine 09/30/2025 4:00 AM EST Urinary tract infection, site not specified URINALYSIS WITH REFLEX MICROSCOPIC Routine 09/30/2025 4:00 AM EST Urinary tract infection, site not specified CULTURE URINE Routine 09/30/2025 4:00 AM EST Urinary tract infection, site not specified COMPREHENSIVE METABOLIC PANEL Routine 09/23/2025 7:00 AM EDT Encounter for other general examination CBC WITH AUTO DIFFERENTIAL Routine 09/19/2025 6:29 [...] general examination CBC WITH AUTO DIFFERENTIAL Routine 09/13/2025 6:38 AM EDT Other salvage determiner (current) drug therapy COMPREHENSIVE METABOLIC PANEL Routine 09/13/2025 6:38 AM EDT Other prison (current) drug therapy CBC AND DIFFERENTIAL Routine 09/13/2025 6:38 AM EDT Other prison (current) drug therapy MANUAL DIFFERENTIAL - SYSMEX [...] EDT Urinary tract infection, site not specified HM GONORRHEA/CHLAMYDIA SCRREENING Routine 11/13/2023 HM DEPRESSION SCREENING Routine 10/06/2023 LIPID PANEL Routine 12/06/2022 PAP SMEAR Routine 09/05/2022 from Last 3 Months or Most Recently Relevant to Health Maintenance Results * (ABNORMAL) CBC auto differential (09/30/2025 6:30 AM EST) Only the most recent of4 resultswithin the time period is included. WBC 3.9(L) 4.8 - 10.8 K/mcL LAB HEMETOLOGY METHOD 09/30/2025 8:24 AM EST [facility] RBC 4.00 3.80 - 4.80 M/mcL LAB HEMETOLOGY METHOD 09/30/2025 8:24 AM EST [facility] Hemoglobin 11.4(L) 11.5 - 16.0 g/dL LAB HEMETOLOGY METHOD 09/30/2025 8:24 AM [facility] LAB Hematocrit 36.2 35.0 - 47.0 % LAB HEMETOLOGY METHOD 09/30/2025 8:24 AM [facility] MCV 89.6 79.0 - 98.0 FL LAB HEMETOLOGY METHOD 09/30/2025 8:24 AM [facility] MCH 28.2 27.0 - 32.0 pcg LAB HEMETOLOGY METHOD 09/30/2025 8:24 AM [facility] LAB MCHC 31.5(L) 32.0 - 37.0 g/dL LAB HEMETOLOGY METHOD 09/30/2025 8:24 AM [facility] RDW 16.9(H) 11.0 - 15.0 % LAB HEMETOLOGY METHOD 09/30/2025 8:24 AM [facility] Platelets 211 130 - 400 K/mcL LAB HEMETOLOGY METHOD 09/30/2025 8:24 AM [facility] MPV 11.0 7.0 - 11.0 FL LAB HEMETOLOGY METHOD 09/30/2025 8:24 AM [facility] NRBC 0.0 <1.0 % LAB HEMETOLOGY METHOD 09/30/2025 8:24 AM [facility] LAB NRBC Absolute 0.00 <0.10 K/mcL LAB HEMETOLOGY METHOD 09/30/2025 8:24 AM [facility] Neutrophils Relative 51.0 % LAB HEMETOLOGY METHOD 09/30/2025 8:24 AM [facility] Lymphocytes Relative 33.8 % LAB HEMETOLOGY METHOD 09/30/2025 8:24 AM [facility] Monocytes Relative 12.7 % LAB HEMETOLOGY METHOD 09/30/2025 8:24 AM [facility] Eosinophils Relative 1.5 % LAB HEMETOLOGY METHOD 09/30/2025 8:24 AM EST [facility] Basophils Relative 0.5 % LAB HEMETOLOGY METHOD 09/30/2025 8:24 AM [facility] Immature Granulocytes Relative 0.5 % LAB HEMETOLOGY METHOD 09/30/2025 8:24 AM EST [facility] Neutrophils Absolute 2.01 1.50 - 7.00 K/mcL LAB HEMETOLOGY METHOD 09/30/2025 8:24 AM EST [facility] Lymphocytes Absolute 1.33 1.00 - 5.00 K/mcL LAB HEMETOLOGY METHOD 09/30/2025 8:24 AM EST [facility] Monocytes Absolute 0.50 0.20 - 1.00 K/mcL LAB HEMETOLOGY METHOD 09/30/2025 8:24 AM EST [facility] Eosinophils Absolute 0.06 0.00 - 0.50 K/mcL LAB HEMETOLOGY METHOD 09/30/2025 8:24 AM EST [facility] Basophils Absolute 0.02 0.00 - 0.20 K/mcL LAB HEMETOLOGY METHOD 09/30/2025 8:24 AM EST [facility] Immature Granulocytes Absolute 0.02 0.00 - 0.03 K/mcL LAB HEMETOLOGY METHOD 09/30/2025 8:24 AM EST [facility] Blood Venous blood specimen / Unknown Venipuncture / Unknown 09/30/2025 6:30 AM EST 09/30/2025 7:42 AM EST us Ria Vivas MD LAB BLOOD ORDERABLES Final Resu lt [facility] [address] [place] [address], * (ABNORMAL) Vitamin D 25 hydroxy (09/30/2025 6:30 AM EST) Vit D, 25-Hydroxy 29.9(L) 30.0 - 80.0 ng/mL LAB CHEMISTRY METHOD 09/30/2025 10:22 AM EST [facility] Blood Venous blood specimen / Unknown Venipuncture / Unknown 09/30/2025 6:30 AM EST 09/30/2025 7:42 AM EST us Ria Vivas MD LAB BLOOD ORDERABLES Final Resu lt Performing Organization Address City/[facility]/ZIP Co de Phone Number [facility] [address] [place] [address], [place] [phone] * Thyroid stimulating hormone (09/30/2025 6:30 AM EST) [facility] TSH 2.13 0.40 - 4.00 mcIU/mL LAB CHEMISTRY METHOD 09/30/2025 10:23 AM EST [facility] Blood Venous blood specimen / Unknown Venipuncture / Unknown 09/30/2025 6:30 AM EST 09/30/2025 7:42 AM EST us Ria Vivas MD LAB BLOOD ORDERABLES Final Resu lt Performing Organization Address [facility]/ZIP Co de Phone Number [facility] [address] [place] [address], [place] [phone] * (ABNORMAL) Folate (09/30/2025 6:30 AM EST) Folate 18.5(H) 2.8 - 17.0 ng/ml LAB CHEMISTRY METHOD 09/30/2025 9:21 AM EST [facility] Blood Venous blood specimen / Unknown Venipuncture / Unknown 09/30/2025 6:30 AM EST 09/30/2025 7:42 AM EST us Ria Vivas MD LAB BLOOD ORDERABLES Final Resu lt Performing Organization Address City/[facility]/ZIP Co de Phone Number [facility] [address] [place] [address], * Vitamin B12 (09/30/2025 6:30 AM EST) [facility] Vitamin B-12 554 250 - 900 pcg/mL LAB CHEMISTRY METHOD 09/30/2025 9:21 AM EST [facility] Blood Venous blood specimen / Unknown Venipuncture / Unknown 09/30/2025 6:30 AM EST 09/30/2025 7:42 AM EST Ria Vivas MD LAB BLOOD ORDERABLES Final Resu lt Performing Organization Address [facility]/ZIP Co de Phone Number [facility] [address] [place] [address], [place] [phone] * (ABNORMAL) Comprehensive metabolic panel (09/30/2025 6:30 AM EST) Only the most recent of4 resultswithin the time period is included. [facility] Sodium 139 133 - 145 mmol/L LAB CHEMISTRY METHOD 09/30/2025 8:57 AM [facility] Potassium 3.8 3.5 - 5.5 mmol/L LAB CHEMISTRY METHOD 09/30/2025 8:57 AM [facility] Chloride 109 96 - 110 mmol/L LAB CHEMISTRY METHOD 09/30/2025 8:57 AM [facility] CO2 23 21 - 32 mmol/L LAB CHEMISTRY METHOD 09/30/2025 8:57 AM [facility] Anion Gap 7 3 - 11 LAB CHEMISTRY METHOD 09/30/2025 8:57 AM [facility] Glucose 76 70 - 100 mg/dL LAB CHEMISTRY METHOD 09/30/2025 8:57 AM [facility] BUN 7 5 - 25 mg/dL LAB CHEMISTRY METHOD 09/30/2025 8:57 AM [facility] Creatinine 0.60 0.50 - 1.10 mg/dL LAB CHEMISTRY METHOD 09/30/2025 8:57 AM [facility] LAB eGFR 127 >=60 mL/min/1. 73m2 LAB CHEMISTRY METHOD 09/30/2025 8:57 AM [facility] Comment:Calculation based on the Chronic Kidney Disease Epidemiology Collaboration (CKD-EPI) equation refit without adjustment for race. BUN/Creatinine Ratio 11.7 LAB CHEMISTRY METHOD 09/30/2025 8:57 AM [facility] Calcium 9.1 8.5 - 10.5 mg/dL LAB CHEMISTRY METHOD 09/30/2025 8:57 AM [facility] AST (SGOT) 34 10 - 42 unit/L LAB CHEMISTRY METHOD 09/30/2025 8:57 AM [facility] ALT (SGPT) 41 10 - 60 unit/L LAB CHEMISTRY METHOD 09/30/2025 8:57 AM [facility] Alkaline Phosphatase 40(L) 42 - 121 unit/L LAB CHEMISTRY METHOD 09/30/2025 8:57 AM [facility] Total Protein 6.6 6.0 - 8.0 g/dL LAB CHEMISTRY METHOD 09/30/2025 8:57 AM [facility] Albumin 3.2 3.2 - 5.0 g/dL LAB CHEMISTRY METHOD 09/30/2025 8:57 AM [facility] Total Bilirubin 0.6 0.0 - 1.4 mg/dL LAB CHEMISTRY METHOD 09/30/2025 8:57 AM [facility] Blood Venous blood specimen / Unknown Venipuncture / Unknown 09/30/2025 6:30 AM EST 09/30/2025 7:42 AM EST us Ria Vivas MD LAB BLOOD ORDERABLES Final Resu lt [facility] [address] [place] [address], [place] [phone] * (ABNORMAL) Urinalysis with reflex microscopic (09/30/2025 4:00 AM [facility]) Specific Spearman Urine 1.021 1.003 - 1.030 LAB URINALYSIS - AUTOMATED METHOD 09/30/2025 9:09 AM [facility] pH, Urine 5.0 5.0 - 8.0 pH LAB URINALYSIS - AUTOMATED METHOD 09/30/2025 9:09 AM [facility] Leukocytes, Urine Small(A) Negative LAB URINALYSIS - AUTOMATED METHOD 09/30/2025 9:09 AM [facility] Nitrite, Urine Negative Negative LAB URINALYSIS - AUTOMATED METHOD 09/30/2025 9:09 AM [facility] Protein, Urine 100(A) <=Trace mg/dL LAB URINALYSIS - AUTOMATED METHOD 09/30/2025 9:09 AM [facility] Glucose, Urine Negative Negative mg/dL LAB URINALYSIS - AUTOMATED METHOD 09/30/2025 9:09 AM [facility] Ketones, Urine Negative Negative mg/dL LAB URINALYSIS - AUTOMATED METHOD 09/30/2025 9:09 AM [facility] Urobilinogen , Urine 1.0 0.2 - 1.0 mg/dL LAB URINALYSIS - AUTOMATED METHOD 09/30/2025 9:09 AM [facility] Bilirubin, Urine Negative Negative LAB URINALYSIS - AUTOMATED METHOD 09/30/2025 9:09 AM [facility] Blood, Urine Large(A) Negative LAB URINALYSIS - AUTOMATED METHOD 09/30/2025 9:09 AM [facility] RBC, Urine >100(H) 0 - 4 /HPF 09/30/2025 9:09 AM [facility] WBC, Urine 5(H) 0 - 4 /HPF 09/30/2025 9:09 AM EST [facility] Squamous Epithelial, Urine 5 0 - 60 /LPF 09/30/2025 9:09 AM [facility] Crystals, Urine Heavy Calcium Oxalate crystals. Heavy Amorphous Urate crystals. /LPF 09/30/2025 9:09 AM [facility] Bacteria, Urine Few(A) Negative /HPF 09/30/2025 9:09 AM EST [facility] Urine Urine specimen obtained by clean catch procedure / Unknown Non-blood Collection / Unknown 09/30/2025 4:00 AM EST 09/30/2025 8:06 AM EST us Ria Vivas MD LAB URINE ORDERABLES Final Resu lt [facility] [address] [place] [address], [place] [phone] * (ABNORMAL) Culture urine (09/30/2025 4:00 AM EST) Only the most recent of2 resultswithin the time period is included. Culture, Urine >=100,000 CFU/mL Staphylococcus epidermidis(A) CHUY 10/02/2025 10:10 AM EST [facility] Comment: This is an edited result. [...] Staphylococcus epidermidis Rifampin CHUY <=0.5 ug/ml: Susceptible Ria Vivas MD LAB MICROBIOLOGY - GENERAL ORDE ELLE Final Result Performing Organization Address City/[facility]/ZIP Co de Phone Number [facility] [address] [place] [address], [place] [phone] * Phosphorus (09/19/2025 6:29 AM EDT) Phosphorus 4.5 2.5 - 4.5 mg/dL LAB CHEMISTRY METHOD 09/19/2025 9:25 AM EDT [facility] Blood Venous blood specimen / Unknown Venipuncture / Unknown 09/19/2025 6:29 AM EDT 09/19/2025 8:39 AM EDT Malia LUNA LAB BLOOD ORDERABLES Final Resul t Performing Organization Address [facility]/ZIP Co de Phone Number [facility] [address] [place] [address], [place] [phone] * Magnesium (09/19/2025 6:29 AM EDT) Only the most recent of2 resultswithin the time period is included. Magnesium 2.1 1.9 - 2.6 mg/dL LAB CHEMISTRY METHOD 09/19/2025 9:25 AM EDT [facility] Blood Venous blood specimen / Unknown Venipuncture / Unknown 09/19/2025 6:29 AM EDT 09/19/2025 8:39 AM EDT Malia LUNA LAB BLOOD ORDERABLES Final Resul t [facility] [address] [place] [address], [place] [phone] * Basic metabolic panel (09/19/2025 6:29 AM EDT) Sodium 140 133 - 145 mmol/L LAB CHEMISTRY METHOD 09/19/2025 9:25 AM [facility] Potassium 4.3 3.5 - 5.5 mmol/L LAB CHEMISTRY METHOD 09/19/2025 9:25 AM [facility] Chloride 109 96 - 110 mmol/L LAB CHEMISTRY METHOD 09/19/2025 9:25 AM [facility] CO2 25 21 - 32 mmol/L LAB CHEMISTRY METHOD 09/19/2025 9:25 AM [facility] Anion Gap 6 3 - 11 LAB CHEMISTRY METHOD 09/19/2025 9:25 AM [facility] Glucose 74 70 - 100 mg/dL LAB CHEMISTRY METHOD 09/19/2025 9:25 AM [facility] BUN 10 5 - 25 mg/dL LAB CHEMISTRY METHOD 09/19/2025 9:25 AM [facility] Creatinine 0.55 0.50 - 1.10 mg/dL LAB CHEMISTRY METHOD 09/19/2025 9:25 AM [facility] LAB eGFR 130 >=60 mL/min/1. 73m2 LAB CHEMISTRY METHOD 09/19/2025 9:25 AM [facility] Comment:Calculation based on the Chronic Kidney Disease Epidemiology Collaboration (CKD-EPI) equation refit without adjustment for race. BUN/Creatinine Ratio 18.2 LAB CHEMISTRY METHOD 09/19/2025 9:25 AM [facility] Calcium 9.2 8.5 - 10.5 mg/dL LAB CHEMISTRY METHOD 09/19/2025 9:25 AM [facility] Blood Venous blood specimen / Unknown Venipuncture / Unknown 09/19/2025 6:29 AM EDT 09/19/2025 8:39 AM EDT us Malia LUNA LAB BLOOD ORDERABLES Final Resul t [facility] [address] [place] [address], [place] [phone] * (ABNORMAL) Manual differential (09/10/2025 6:40 AM EDT) Neutrophils % 32.0 % LAB HEMETOLOGY METHOD 09/10/2025 11:55 AM EDT [facility] Lymphocytes % 61.0 % LAB HEMETOLOGY METHOD 09/10/2025 11:55 AM EDT [facility] Monocytes % 5.0 % LAB HEMETOLOGY METHOD 09/10/2025 11:55 AM EDT [facility] Eosinophils % 1.0 % LAB HEMETOLOGY METHOD 09/10/2025 11:55 AM EDT [facility] Basophils % 1.0 % LAB HEMETOLOGY METHOD 09/10/2025 11:55 AM EDT [facility] Neutrophils Absolute Manual 0.74(L) 1.50 - 7.00 K/mcL LAB HEMETOLOGY METHOD 09/10/2025 11:55 AM EDT [facility] Lymphocytes Absolute 1.40 1.00 - 5.00 K/mcL LAB HEMETOLOGY METHOD 09/10/2025 11:55 AM EDT [facility] Monocytes Absolute Manual 0.12(L) 0.20 - 1.00 K/mcL LAB HEMETOLOGY METHOD 09/10/2025 11:55 AM EDT [facility] Eosinophils Absolute Manual 0.02 0.00 - 0.50 K/mcL LAB HEMETOLOGY METHOD 09/10/2025 11:55 AM EDT [facility] Basophils Absolute Manual 0.02 0.00 - 0.20 K/mcL LAB HEMETOLOGY METHOD 09/10/2025 11:55 AM EDT [facility] Rbc Morphology Consistent with indices Consistent with indices, Normal for LAB HEMETOLOGY METHOD 09/10/2025 11:55 AM EDT [facility] Platelet Morphology - WAM See Note(A) Normal LAB HEMETOLOGY METHOD 09/10/2025 11:55 AM EDT [facility] Comment:PLT: Normal Blood Venous blood specimen / Unknown Venipuncture / Unknown 09/10/2025 6:40 AM EDT 09/10/2025 9:50 AM EDT Isabella LUNA LAB BLOOD ORDERABLES Final Resu lt Performing Organization Address [facility] Co de Phone Number [facility] [address] [place] [address], [place] [phone] * Pathology review, blood smear (09/10/2025 6:40 [...] lt [facility] [address] [place] [address], [place] [phone] * Gonorrhea/Chlamydia Screening (11/13/2023) Gonorrhea/Chla mydia Screening [...] RESULTING AGENCY - 09/12/2022 7:30 AM EDT [id number] THINPREP PAP, IMAGED: NEGATIVE FOR SQUAMOUS INTRAEPITHELIAL [...] to Health Maintenance Insurance MEDICAID - [place] [facility] MEDICAID [employer] MEDICARE Care Teams Brazing Machine Operator Relationship Specialty Start Date End Date Iraida Woodruff PA [address] [place] [address], [address] [place] [address] PCP - General 08/23/25
--- OUTSIDE RECORDS SUMMARY | 2025-10-06 18:48 | XMS_ITS | Clinical Summary ---
Author Organization [facility] Address [address] [facility] [address] [place] [address] Phone Care Team Providers Care Real Estate Broker Name Role Phone Darin Restrepo MD Primary [...] Active Active Problems No known active problems Encounters Date Type Department Care Team Description 09/23/2025 Orders Only [facility] [address] [place] [address] Homehealth, Interface Provider, from Last 3 Months Immunizations Immunization Administration Dates Next Due Tdap [...] VACCINE (2024- season) 2025 09/06/2021, 01/29/2021, 01/08/2021 PAP SMEAR 09/05/2025 09/05/2022 Adult Td,Tdap Booster 04/27/2031 04/27/2021, 011 HIB VACCINES Completed 06/18/2000, 05/2000, 1999, Additional history exists IPV VACCINES Completed 05/01/2004, 05/25, 1999, Additional history exists HPV VACCINES Completed 04/30/2013, 06/25, 04/14/2012 MENINGOCOCCAL VACCINES (ACWY) Completed 08/08/2015, 04/14/2012 [...] Date/Time Associated Diagnosis Comments BASIC METABOLIC PANEL (BMP) STAT 01/22/2024 12:35 AM EST from Last 3 Months or Most Recently Relevant to Health Maintenance Results * (ABNORMAL) Basic metabolic panel (01/22/2024 12:35 AM EST) SODIUM 140 133 - 146 mmol/L [facility] CHLORIDE 103 96 - 108 mmol/L [facility] POTASSIUM 4.6 3.3 - 5.1 mmol/L [facility] CO2 27 21 - 35 mmol/L [facility] BUN 15 6 - 19 mg/dL [facility] CREATININE 1.00 0.5 - 1.5 mg/dL [facility] GLUCOSE 100(H) 70 - 99 mg/dL [facility] CALCIUM 9.2 8.4 - 10.3 mg/dL [facility] EGFR 81 >59 mL/min/1.7 3m2 [facility] Comment:Estimated glomerular filtration rate calculated using the CKD-EPI refit equation. ANION GAP 15 10 - 20 mmol/L [facility] Blood 01/22/2024 12:3 5 AM EST 01/22/2024 12:40 AM EST us Grayson Ivan DO LAB BLOOD BKR ORDERABL ES Final Result [facility] [address] [place] [address] from Last 3 Months or Most Recently Relevant to Health Maintenance Insurance CARE MEDICARE REPLACEMENT [place] [id number] [facility] MEDICARE REPLACEMENT [place] [address] [place] [address] CARE MEDICARE REPLACEMENT MEDICARE REPLACEMENT Member Subscriber Plan / Payer (Ef fective 2022-) Name:Tk Ferrer Relation to Subscriber:Self Name:Tk Ferrer Payer ID:[id number] (NAIC) Group ID:[id number] Type:Medicare Address: [place] [phone] MEDICARE REPLACEMENT Member Subscriber Plan / Payer (Ef fective 2022-) Name:Tk Ferrer Relation to Subscriber:Self Name:Tk Ferrer Payer ID:[id number] (NAIC) Group ID:[id number] Type:Medicare Address: [place] [id number] [place] [address] Care Teams Real Estate Broker Relationship Specialty Start Date End Date Darin Restrepo MD [address] [place] [id number] PCP - General Internal Medicine 11/30/21 Additional Source Comments The information contained in this document represents components of the legal health record. It is not the complete legal health record.[facility]
== END 2025-10-06 16:07 | disposition home or self-care (01) ==
LOC: HO.HBS 16:07
PROVIDERS: Visit Provider Physician Assistant Surgical
DX: E66.01 Morbid (severe) obesity due to excess calories (principal); Z68.42 Body mass index [BMI] 45.0-49.9, adult; Z90.3 Acquired absence of stomach [part of]; Z98.84 Bariatric surgery status
CPT/HCPCS: 99024

== ENCOUNTER 2025-10-14 13:19 | Outpatient (AMB) | payer OTHER, SELFPAY ==
--- NOTE | 2025-10-14 13:15 | A.OFFWM_ITS ---
Intake Intake Visit Reasons: TV PO LSG 07/14/25 Allergies cephalexin (From Keflex) Allergy (Intermediate, Verified 08/29/25 11:57) Redness of Skin doxycycline Allergy (Intermediate, Verified 08/29/25 11:57) Hives Penicillins Allergy (Intermediate, Verified 08/29/25 11:57) Hives, burning sensation Sulfa (Sulfonamide Antibiotics) Allergy (Intermediate, Verified 08/29/25 11:57) Hives,palpatations PFSH Medical History Annual physical exam Well woman exam with routine gynecological exam Morbid obesity with BMI of 60.0-69.9, adult Screening for cervical cancer Sleep apnea treated with nocturnal bilevel positive airway pressure (BPAP) Sleep apnea PCOS (polycystic ovarian syndrome) Migraines ADHD (attention deficit hyperactivity disorder) Depression GERD (gastroesophageal reflux disease) Morbid obesity Asthma High blood pressure Surgical History S/P gastric sleeve procedure S/P tonsillectomy History of eye surgery Family History Maternal Grandmother Breast cancer Mother Diabetes Other HTN (hypertension) Social History Household Members: None Housing: Apartment Are you a primary childcare provider to a significant other at home: No Do you presently have visiting nurse or other home services: No Alcohol intake: current Alcohol intake frequency: holidays/special occasions only Patient Tobacco Use Status: Never used Tobacco e-Cigarette/Vaping Use: Never Used Second Hand Smoke Exposure: No service: No Current occupational status: employed Cognitive needs: No Hearing needs: No Vision needs: Yes (Glasses) Female Reproductive History Menstrual Age of Menarche: 11 Behavioral Health Assessment Weight Management Therapy Therapy Notes Details Subjective: The patient has been at [facility] since 09/27/2025. She reports being able to dress herself independently but requires a walker for ambulation and most activities. She expresses a desire to begin working on stairs and transition to walking with a cane, though balance remains a challenge. Her provider has advised that continued recovery will depend on time and physical therapy. The patient notes increased energy during the day but experiences weakness in the evenings. She reports decreased appetite and is making efforts to maintain adequate hydration. Her most recent weight was 265 lbs (recorded two weeks ago). Mood is reported as stable, but she is experiencing difficulty with sleep. Objective: The patient attended a post-operative follow-up visit via telehealth. Functioning and progress in rehabilitation were reviewed. CBT-based interventions focused on managing frustration with the pace of physical recovery and setting realistic, incremental goals for mobility. Psychoeducation was provided regarding the normal course of post-surgical recovery and the importance of self-compassion. Coping strategies for sleep difficulties were discussed. A coping plan was developed for her transition home, emphasizing the use of support systems, pacing activities, and monitoring for signs of emotional distress. Assessment/Response: * Mental status: Alert and oriented ?4. Appearance appropriate. Mood stable, affect congruent. Thought process logical and coherent. No evidence of psychosis. Insight and judgment intact. * Risk reported/identified: No suicidal or homicidal ideation, self-harm, or other safety concerns identified. Assessment & Plan Assessment & Plan (1) Anxiety disorder: Code(s): F41.9 - Anxiety disorder, unspecified (2) History of ADHD: Code(s): Z86.59 - Personal history of other mental and behavioral disorders (3) Status post bariatric surgery: Code(s): Z98.84 - Bariatric surgery status Plan Develop and implement a coping plan for her return home. Continue to monitor mood, sleep, and adjustment to physical limitations. Next follow-up scheduled for 11/22/2025 at 1:00 PM via video. Telehealth Telehealth Telehealth Platform: [facility] Location of provider rendering services: practice address Location of patient: other ([facility]. [place], [place]) Patient Identification confirmed using: Name, : Yes Telehealth method: video Patient verbally consented to treatment: Yes Patient verbally consented to billing insurance company: Yes Patient informed of any privacy concerns related to visit: Yes Minutes spent on Phone/Video with Pt.: 45 [place] [address] Tele Psytx 45 mins Patient Type Established Diagnoses Anxiety disorder F41.9 History of ADHD Z86.59 Status post bariatric surgery Z98.84 Time Spent (min) 45
--- OUTSIDE RECORDS SUMMARY | 2025-10-14 13:36 | XMS_ITS | Encounter Summary ---
Author Organization [facility] Address [address] [place] [address] Care Team Providers Care Metal Bonder Name Role Phone Iraida Woodruff Primary Care Provider [phone] Encounter Details Date Type Department Care Team (Late st Contact Info) Description 09/10/2025 Lab Requisition [facility] - Main Lab [address] [facility] [place] [address] Isabella Wright PA [address] [place] [phone] Encounter for other general examination Social History [...] 2:00 PM EST Office Visit Nephrology - [place] [address] [place] [address] Christopher Pollard MD [address] [place] [address] documented as of this encounter [...] blood smear (09/10/2025 6:40 AM EDT) Pathologist [facility] Pathologist Review Blood Smear Leukopenia including absolute neutropenia: smear not diagnostic of etiology. Rare reactive-appea ring lymphocytes are noted. Occasional giant platelets are noted; no significant platelet clumps are identified. 09/12/2025 9:27 AM EDT [facility] Blood Venous blood specimen / Unknown Venipuncture / Unknown 09/10/2025 6:40 AM EDT 09/10/2025 9:50 AM EDT Isabella LUNA LAB BLOOD ORDERABLES Final Resu lt [facility] [address] [place] [address], [place] [phone] * (ABNORMAL) Manual differential (09/10/2025 6:40 AM EDT) Neutrophils % 32.0 % LAB HEMETOLOGY METHOD 09/10/2025 11:55 AM EDT [facility] Lymphocytes % 61.0 % LAB HEMETOLOGY METHOD 09/10/2025 11:55 AM [facility] Monocytes % 5.0 % LAB HEMETOLOGY METHOD 09/10/2025 11:55 AM [facility] Eosinophils % 1.0 % LAB HEMETOLOGY METHOD 09/10/2025 11:55 AM [facility] Basophils % 1.0 % LAB HEMETOLOGY METHOD 09/10/2025 11:55 AM [facility] Neutrophils Absolute Manual 0.74(L) 1.50 - 7.00 K/mcL LAB HEMETOLOGY METHOD 09/10/2025 11:55 AM [facility] Lymphocytes Absolute 1.40 1.00 - 5.00 K/mcL LAB HEMETOLOGY METHOD 09/10/2025 11:55 AM [facility] Monocytes Absolute Manual 0.12(L) 0.20 - 1.00 K/mcL LAB HEMETOLOGY METHOD 09/10/2025 11:55 AM [facility] Eosinophils Absolute Manual 0.02 0.00 - 0.50 K/mcL LAB HEMETOLOGY METHOD 09/10/2025 11:55 AM [facility] Basophils Absolute Manual 0.02 0.00 - 0.20 K/mcL LAB HEMETOLOGY METHOD 09/10/2025 11:55 AM [facility] Rbc Morphology Consistent with indices Consistent with indices, Normal for LAB HEMETOLOGY METHOD 09/10/2025 11:55 AM [facility] Platelet Morphology - WAM See Note(A) Normal LAB HEMETOLOGY METHOD 09/10/2025 11:55 AM [facility] Comment:PLT: Normal Blood Venous blood specimen / Unknown Venipuncture / Unknown 09/10/2025 6:40 AM EDT 09/10/2025 9:50 AM EDT us Isabella LUNA LAB BLOOD ORDERABLES Final Resu lt [facility] [address] [place] [address], * (ABNORMAL) CBC auto differential (09/10/2025 6:40 AM EDT) [facility] Signature WBC 2.3(L) 4.8 - 10.8 K/mcL LAB HEMETOLOGY METHOD 09/10/2025 11:55 AM EDT [facility] RBC 4.50 3.80 - 4.80 M/mcL LAB HEMETOLOGY METHOD 09/10/2025 11:55 AM EDT [facility] Hemoglobin 12.4 11.5 - 16.0 g/dL LAB HEMETOLOGY METHOD 09/10/2025 11:55 AM EDT [facility] Hematocrit 38.2 35.0 - 47.0 % LAB HEMETOLOGY METHOD 09/10/2025 11:55 AM EDT [facility] MCV 84.5 79.0 - 98.0 FL LAB HEMETOLOGY METHOD 09/10/2025 11:55 AM EDT [facility] MCH 27.4 27.0 - 32.0 pcg LAB HEMETOLOGY METHOD 09/10/2025 11:55 AM EDT [facility] MCHC 32.5 32.0 - 37.0 g/dL LAB HEMETOLOGY METHOD 09/10/2025 11:55 AM EDT [facility] RDW 16.1(H) 11.0 - 15.0 % LAB HEMETOLOGY METHOD 09/10/2025 11:55 AM EDT [facility] Platelets 177 130 - 400 K/mcL LAB HEMETOLOGY METHOD 09/10/2025 11:55 AM EDT [facility] MPV 12.0(H) 7.0 - 11.0 FL LAB HEMETOLOGY METHOD 09/10/2025 11:55 AM EDT [facility] NRBC 0.0 <1.0 % LAB HEMETOLOGY METHOD 09/10/2025 11:55 AM EDT [facility] NRBC Absolute 0.00 <0.10 K/mcL LAB HEMETOLOGY METHOD 09/10/2025 11:55 AM EDT [facility] Blood Venous blood specimen / Unknown Venipuncture / Unknown 09/10/2025 6:40 AM EDT 09/10/2025 9:50 AM EDT Isabella LUNA LAB BLOOD ORDERABLES Final Resu lt [facility] [address] [place] [address], [place] [phone] * Magnesium (09/10/2025 6:40 AM EDT) Magnesium 2.0 1.9 - 2.6 mg/dL LAB CHEMISTRY METHOD 09/10/2025 11:33 AM EDT [facility] Blood Venous blood specimen / Unknown Venipuncture / Unknown 09/10/2025 6:40 AM EDT 09/10/2025 9:50 AM EDT Isabella LUNA LAB BLOOD ORDERABLES Final Resu lt [facility] [address] [place] [address], [place] [phone] * (ABNORMAL) Comprehensive metabolic panel (09/10/2025 6:40 AM EDT) Sodium 137 133 - 145 mmol/L LAB CHEMISTRY METHOD 09/10/2025 11:33 AM EDT [facility] Potassium 4.0 3.5 - 5.5 mmol/L LAB CHEMISTRY METHOD 09/10/2025 11:33 AM EDT [facility] Chloride 103 96 - 110 mmol/L LAB CHEMISTRY METHOD 09/10/2025 11:33 AM [facility] CO2 26 21 - 32 mmol/L LAB CHEMISTRY METHOD 09/10/2025 11:33 AM [facility] Anion Gap 8 3 - 11 LAB CHEMISTRY METHOD 09/10/2025 11:33 AM [facility] Glucose 62(L) 70 - 100 mg/dL LAB CHEMISTRY METHOD 09/10/2025 11:33 AM [facility] BUN 7 5 - 25 mg/dL LAB CHEMISTRY METHOD 09/10/2025 11:33 AM [facility] Creatinine 0.55 0.50 - 1.10 mg/dL LAB CHEMISTRY METHOD 09/10/2025 11:33 AM [facility] eGFR 130 >=60 mL/min/1. 73m2 LAB CHEMISTRY METHOD 09/10/2025 11:33 AM [facility] Comment:Calculation based on the Chronic Kidney Disease Epidemiology Collaboration (CKD-EPI) equation refit without adjustment for race. BUN/Creatinine Ratio 12.7 LAB CHEMISTRY METHOD 09/10/2025 11:33 AM [facility] Calcium 8.8 8.5 - 10.5 mg/dL LAB CHEMISTRY METHOD 09/10/2025 11:33 AM [facility] AST (SGOT) 56(H) 10 - 42 unit/L LAB CHEMISTRY METHOD 09/10/2025 11:33 AM [facility] ALT (SGPT) 70(H) 10 - 60 unit/L LAB CHEMISTRY METHOD 09/10/2025 11:33 AM [facility] Alkaline Phosphatase 49 42 - 121 unit/L LAB CHEMISTRY METHOD 09/10/2025 11:33 AM [facility] Total Protein 8.0 6.0 - 8.0 g/dL LAB CHEMISTRY METHOD 09/10/2025 11:33 AM [facility] Albumin 2.8(L) 3.2 - 5.0 g/dL LAB CHEMISTRY METHOD 09/10/2025 11:33 AM EDT [facility] Total Bilirubin 0.5 0.0 - 1.4 mg/dL LAB CHEMISTRY METHOD 09/10/2025 11:33 AM EDT [facility] Blood Venous blood specimen / Unknown Venipuncture / Unknown 09/10/2025 6:40 AM EDT 09/10/2025 9:50 AM EDT us Isabella LUNA LAB BLOOD ORDERABLES Final Resu lt [facility] [address] [place] [address], documented in this encounter Visit Diagnoses Diagnosis Encounter for other general examination documented in this encounter Care Teams Metal Bonder Relationship Specialty Start Date End Date Iraida Woodruff PA [address] [place] [address], [address] [place] [address] PCP - General 08/23/25 documented as of this encounter
--- OUTSIDE RECORDS SUMMARY | 2025-10-14 13:36 | XMS_ITS | Encounter Summary ---
Author Organization [facility] Address [address] [place] [address] Care Team Providers Care Trimming Department Blocker Name Role Phone Iraida Woodruff Primary Care Provider [phone] Encounter Details Date Type Department Care Team (Late st Contact Info) Description 09/23/2025 Lab Requisition [facility] - Main Lab [address] [facility] [place] [address] Sushma Montana PA [address] [place] [address] Encounter for other general examination Social History [...] 2:00 PM EST Office Visit Nephrology - [place] [id number] [place] [address] Christopher Pollard MD [address] [place] [address] documented as of this encounter Procedures Procedure Name Priority Date/Time Associated Diagnosis Comments COMPREHENSIVE METABOLIC PANEL Routine 09/23/2025 7:00 AM EDT Encounter for other general examination documented in this encounter Results * (ABNORMAL) Comprehensive metabolic panel (09/23/2025 7:00 AM EDT) Sodium 138 133 - 145 mmol/L LAB CHEMISTRY METHOD 09/23/2025 11:[address] [facility] Potassium 3.8 3.5 - 5.5 mmol/L LAB CHEMISTRY METHOD 09/23/2025 11:[address] [facility] Chloride 108 96 - 110 mmol/L LAB CHEMISTRY METHOD 09/23/2025 11:[address] [facility] CO2 24 21 - 32 mmol/L LAB CHEMISTRY METHOD 09/23/2025 11:[address] [facility] Anion Gap 6 3 - 11 LAB CHEMISTRY METHOD 09/23/2025 11:[address] [facility] Glucose 71 70 - 100 mg/dL LAB CHEMISTRY METHOD 09/23/2025 11:[address] [facility] BUN 11 5 - 25 mg/dL LAB CHEMISTRY METHOD 09/23/2025 11:[address] [facility] Creatinine 0.59 0.50 - 1.10 mg/dL LAB CHEMISTRY METHOD 09/23/2025 11:[address] [facility] eGFR 128 >=60 mL/min/1. 73m2 LAB CHEMISTRY METHOD 09/23/2025 11:[address] [facility] Comment:Calculation based on the Chronic Kidney Disease Epidemiology Collaboration (CKD-EPI) equation refit without adjustment for race. BUN/Creatinine Ratio 18.6 LAB CHEMISTRY METHOD 09/23/2025 11:[address] [facility] Calcium 9.2 8.5 - 10.5 mg/dL LAB CHEMISTRY METHOD 09/23/2025 11:[address] [facility] AST (SGOT) 30 10 - 42 unit/L LAB CHEMISTRY METHOD 09/23/2025 11:[address] [facility] ALT (SGPT) 52 10 - 60 unit/L LAB CHEMISTRY METHOD 09/23/2025 11:[address] [facility] Alkaline Phosphatase 41(L) 42 - 121 unit/L LAB CHEMISTRY METHOD 09/23/2025 11:[address] [facility] Total Protein 6.9 6.0 - 8.0 g/dL LAB CHEMISTRY METHOD 09/23/2025 11:[address] [facility] Albumin 2.9(L) 3.2 - 5.0 g/dL LAB CHEMISTRY METHOD 09/23/2025 11:[address] [facility] Total Bilirubin 0.5 0.0 - 1.4 mg/dL LAB CHEMISTRY METHOD 09/23/2025 11:[address] [facility] Blood Venous blood specimen / Unknown Venipuncture / Unknown 09/23/2025 7:00 AM EDT 09/23/2025 10:45 AM EDT us Sushma LUNA LAB BLOOD ORDERABLES Final Re sult [facility] [address] [place] [address], documented in this encounter Visit Diagnoses Diagnosis Encounter for other general examination documented in this encounter Care Teams Trimming Department Blocker Relationship Specialty Start Date End Date Iraida Woodruff PA [address] [place] [address], [address] [place] [address] PCP - General 08/23/25 documented as of this encounter
--- OUTSIDE RECORDS SUMMARY | 2025-10-14 13:36 | XMS_ITS | Encounter Summary ---
Author Organization [facility] Address [address] [place] [address] Care Team Providers Care Computer Help Desk Representative Name Role Phone Iraida Woodruff Primary Care Provider [phone] Encounter Details Date Type Department Care Team (Late st Contact Info) Description 09/19/2025 Lab Requisition [facility] - Main Lab 299 [facility] [place] [address] Malia Gardner PA [address] [place] [address] Encounter for other general examination [...] 2:00 PM EST Office Visit Nephrology - [place] [address] [place] [address] Christopher Pollard MD [address] [place] [address] documented as of this encounter [...] K/mcL LAB HEMETOLOGY METHOD 09/19/2025 9:07 AM [facility] RBC 4.10 3.80 - 4.80 M/mcL LAB HEMETOLOGY METHOD 09/19/2025 9:07 AM [facility] Hemoglobin 11.3(L) 11.5 - 16.0 g/dL LAB HEMETOLOGY METHOD 09/19/2025 9:07 AM [facility] Hematocrit 35.8 35.0 - 47.0 % LAB HEMETOLOGY METHOD 09/19/2025 9:07 AM [facility] MCV 88.4 79.0 - 98.0 FL LAB HEMETOLOGY METHOD 09/19/2025 9:07 AM [facility] MCH 27.9 27.0 - 32.0 pcg LAB HEMETOLOGY METHOD 09/19/2025 9:07 AM [facility] MCHC 31.6(L) 32.0 - 37.0 g/dL LAB HEMETOLOGY METHOD 09/19/2025 9:07 AM [facility] RDW 16.5(H) 11.0 - 15.0 % LAB HEMETOLOGY METHOD 09/19/2025 9:07 AM [facility] Platelets 217 130 - 400 K/mcL LAB HEMETOLOGY METHOD 09/19/2025 9:07 AM [facility] MPV 11.9(H) 7.0 - 11.0 FL LAB HEMETOLOGY METHOD 09/19/2025 9:07 AM [facility] NRBC 0.0 <1.0 % LAB HEMETOLOGY METHOD 09/19/2025 9:07 AM [facility] NRBC Absolute 0.00 <0.10 K/mcL LAB HEMETOLOGY METHOD 09/19/2025 9:07 AM [facility] Neutrophils Relative 42.9 % LAB HEMETOLOGY METHOD 09/19/2025 9:07 AM [facility] Lymphocytes Relative 41.0 % LAB HEMETOLOGY METHOD 09/19/2025 9:07 AM [facility] Monocytes Relative 13.0 % LAB HEMETOLOGY METHOD 09/19/2025 9:07 AM [facility] Eosinophils Relative 1.9 % LAB HEMETOLOGY METHOD 09/19/2025 9:07 AM [facility] Basophils Relative 0.7 % LAB HEMETOLOGY METHOD 09/19/2025 9:07 AM [facility] Immature Granulocytes Relative 0.5 % LAB HEMETOLOGY METHOD 09/19/2025 9:07 AM [facility] Neutrophils Absolute 1.82 1.50 - 7.00 K/mcL LAB HEMETOLOGY METHOD 09/19/2025 9:07 AM [facility] Lymphocytes Absolute 1.74 1.00 - 5.00 K/mcL LAB HEMETOLOGY METHOD 09/19/2025 9:07 AM [facility] Monocytes Absolute 0.55 0.20 - 1.00 K/mcL LAB HEMETOLOGY METHOD 09/19/2025 9:07 AM EDT [facility] Eosinophils Absolute 0.08 0.00 - 0.50 K/[facility] LAB HEMETOLOGY METHOD 09/19/2025 9:07 AM EDT [facility] Basophils Absolute 0.03 0.00 - 0.20 K/[facility] LAB HEMETOLOGY METHOD 09/19/2025 9:07 AM EDT [facility] Immature Granulocytes Absolute 0.02 0.00 - 0.03 K/[facility] LAB HEMETOLOGY METHOD 09/19/2025 9:07 AM EDT [facility] Blood Venous blood specimen / Unknown Venipuncture / Unknown 09/19/2025 6:29 AM EDT 09/19/2025 8:39 AM EDT us Malia LUNA LAB BLOOD ORDERABLES Final Resul t Performing Organization Address City/[facility]/ZIP Co de Phone Number [facility] [address] [place] [address], [place] [phone] * Magnesium (09/19/2025 6:29 AM EDT) Magnesium 2.1 1.9 - 2.6 mg/dL LAB CHEMISTRY METHOD 09/19/2025 9:25 AM EDT [facility] Blood Venous blood specimen / Unknown Venipuncture / Unknown 09/19/2025 6:29 AM EDT 09/19/2025 8:39 AM EDT us Malia LUNA LAB BLOOD ORDERABLES Final Resul t [facility] [address] [place] [address], [place] [phone] * Basic metabolic panel (09/19/2025 6:29 AM EDT) Sodium 140 133 - 145 mmol/L LAB CHEMISTRY METHOD 09/19/2025 9:25 AM [facility] Potassium 4.3 3.5 - 5.5 mmol/L LAB CHEMISTRY METHOD 09/19/2025 9:25 AM [facility] Chloride 109 96 - 110 mmol/L LAB CHEMISTRY METHOD 09/19/2025 9:25 AM [facility] CO2 25 21 - 32 mmol/L LAB CHEMISTRY METHOD 09/19/2025 9:25 AM [facility] Anion Gap 6 3 - 11 LAB CHEMISTRY METHOD 09/19/2025 9:25 AM [facility] Glucose 74 70 - 100 mg/dL LAB CHEMISTRY METHOD 09/19/2025 9:25 AM [facility] BUN 10 5 - 25 mg/dL LAB CHEMISTRY METHOD 09/19/2025 9:25 AM [facility] Creatinine 0.55 0.50 - 1.10 mg/dL LAB CHEMISTRY METHOD 09/19/2025 9:25 AM [facility] eGFR 130 >=60 mL/min/1. 73m2 LAB CHEMISTRY METHOD 09/19/2025 9:25 AM [facility] Comment:Calculation based on the Chronic Kidney Disease Epidemiology Collaboration (CKD-EPI) equation refit without adjustment for race. BUN/Creatinine Ratio 18.2 LAB CHEMISTRY METHOD 09/19/2025 9:25 AM [facility] Calcium 9.2 8.5 - 10.5 mg/dL LAB CHEMISTRY METHOD 09/19/2025 9:25 AM [facility] Blood Venous blood specimen / Unknown Venipuncture / Unknown 09/19/2025 6:29 AM EDT 09/19/2025 8:39 AM EDT us Malia LUNA LAB BLOOD ORDERABLES Final Resul t [facility] [address] [place] [address], * Phosphorus (09/19/2025 6:29 AM EDT) Phosphorus 4.5 2.5 - 4.5 mg/dL LAB CHEMISTRY METHOD 09/19/2025 9:25 AM EDT [facility] Blood Venous blood specimen / Unknown Venipuncture / Unknown 09/19/2025 6:29 AM EDT 09/19/2025 8:39 AM EDT us Malia LUNA LAB BLOOD ORDERABLES Final Resul t [facility] [address] [place] [address], documented in this encounter Visit Diagnoses Diagnosis Encounter for other general examination documented in this encounter Care Teams Computer Help Desk Representative Relationship Specialty Start Date End Date Iraida Woodruff PA [address] [place] [address], [address] [place] [address] PCP - General 08/23/25 documented as of this encounter
--- OUTSIDE RECORDS SUMMARY | 2025-10-14 13:36 | XMS_ITS | Encounter Summary ---
Author Organization [facility] Address [address] [place] [address] Care Team Providers Care Sales Clerk Food Name Role Phone Iraida Woodruff Primary Care Provider [phone] Encounter Details Date Type Department Care Team (Late Contact Info) Description 09/30/2025 Lab Requisition [facility] - Main Lab 299 [facility] [place] [address] Ria Vivas MD [address] [place] [id number] Urinary tract infection, site not specified Social [...] 2:00 PM EST Office Visit Nephrology - [place] [address] [place] [address] Christopher Pollard MD [address] [facility] [address] [place] [address] documented as of this encounter [...] reflex microscopic (09/30/2025 4:00 AM EST) Specific [place] Urine 1.021 1.003 - 1.030 LAB URINALYSIS - AUTOMATED METHOD 09/30/2025 9:09 AM [facility] pH, Urine 5.0 5.0 - 8.0 pH LAB URINALYSIS - AUTOMATED METHOD 09/30/2025 9:09 AM [facility] Leukocytes, Urine Small(A) Negative LAB URINALYSIS - AUTOMATED METHOD 09/30/2025 9:09 AM [facility] Nitrite, Urine Negative Negative LAB URINALYSIS - AUTOMATED METHOD 09/30/2025 9:09 AM [facility] Protein, Urine 100(A) <=Trace mg/dL LAB URINALYSIS - AUTOMATED METHOD 09/30/2025 9:09 AM [facility] Glucose, Urine Negative Negative mg/dL LAB URINALYSIS - AUTOMATED METHOD 09/30/2025 9:09 AM [facility] Ketones, Urine Negative Negative mg/dL LAB URINALYSIS - AUTOMATED METHOD 09/30/2025 9:09 AM [facility] Urobilinogen , Urine 1.0 0.2 - 1.0 mg/dL LAB URINALYSIS - AUTOMATED METHOD 09/30/2025 9:09 AM [facility] Bilirubin, Urine Negative Negative LAB URINALYSIS - AUTOMATED METHOD 09/30/2025 9:09 AM [facility] Blood, Urine Large(A) Negative LAB URINALYSIS - AUTOMATED METHOD 09/30/2025 9:09 AM [facility] RBC, Urine >100(H) 0 - 4 /HPF 09/30/2025 9:09 AM [facility] WBC, Urine 5(H) 0 - 4 /HPF 09/30/2025 9:09 AM [facility] Squamous Epithelial, Urine 5 0 - 60 /LPF 09/30/2025 9:09 AM [facility] Crystals, Urine Heavy Calcium Oxalate crystals. Heavy Amorphous Urate crystals. /LPF 09/30/2025 9:09 AM [facility] Bacteria, Urine Few(A) Negative /HPF 09/30/2025 9:09 AM [facility] Urine Urine specimen obtained by clean catch procedure / Unknown Non-blood Collection / Unknown 09/30/2025 4:00 AM EST 09/30/2025 8:06 AM EST us Ria Vivas MD LAB URINE ORDERABLES Final Resu lt [facility] [address] [place] [address], * (ABNORMAL) Culture urine (09/30/2025 4:00 AM EST) Culture, Urine >=100,000 CFU/mL Staphylococcus epidermidis(A) CHUY 10/02/2025 10:10 AM [facility] Comment: This is an edited [...] MICROBIOLOGY - GENERAL TREY ALMEIDA Final Result [facility] [address] [place] [address], documented in this encounter Visit Diagnoses Diagnosis Urinary tract infection, site not specified documented in this encounter Care Teams Sales Clerk Food Relationship Specialty Start Date End Date Iraida Woodruff PA [address] [place] [address], [address] [place] [address] PCP - General 08/23/25 documented as of this encounter
--- OUTSIDE RECORDS SUMMARY | 2025-10-14 13:36 | XMS_ITS | Encounter Summary ---
Author Organization [facility] Address [address] [place] [address] Phone Care Team Providers Care Barrel Rifler Hook Name Role Phone Darin Restrepo MD Primary Care Provider + Encounter Details Date Type Department Care Team (Late st Contact Info) Description 01/22/2024 Procedure Pass [facility], Ct Scan - [facility] [address] [place] [address] Social History Tobacco Use Types Packs/Day Years [...] documented as of this encounter Care Teams Barrel Rifler Hook Relationship Specialty Start Date End Date Darin Restrepo MD [address] [place] [id number] PCP - General Internal Medicine 11/30/21 documented as of this encounter Additional Source Comments The information contained in this document represents components of the legal health record. It is not the complete legal health record.[facility]
--- OUTSIDE RECORDS SUMMARY | 2025-10-14 13:36 | XMS_ITS | Encounter Summary ---
Author Organization [facility] Address [address] [place] [address] Care Team Providers Care House Painter Helper Name Role Phone Iraida Woodruff Primary Care Provider [phone] Encounter Details Date Type Department Care Team (Late st Contact Info) Description 08/22/2025 Lab Requisition [facility] - Main Lab 299 [facility] [place] [address] Lasha Moctezuma PA [address] [place] [address] Urinary tract infection, site not specified Social [...] 2:00 PM EST Office Visit Nephrology - [place] [address] [place] [address] Christopher Pollard MD [address] [place] [phone] documented as of this encounter Procedures Procedure Name Priority Date/Time Associated Diagnosis Comments CULTURE URINE Routine 08/22/2025 12:00 AM EDT Urinary tract infection, site not specified documented in this encounter Results * Culture urine (08/22/2025 12:00 AM EDT) Culture, Urine 50,000-99,000 CFU/mL Mixed urogenital joel, no uropathogens present. Suggest repeat specimen if clinically indicated. 08/23/2025 1:26 PM EDT [facility] Urine Urine specimen obtained by clean catch procedure / Unknown 08/22/2025 08/22/2025 6:35 PM EDT Lasha LUNA LAB MICROBIOLOGY - GENERAL TREY ALMEIDA Final Result [facility] [address] [place] [address], documented in this encounter Visit Diagnoses Diagnosis Urinary tract infection, site not specified documented in this encounter Care Teams House Painter Helper Relationship Specialty Start Date End Date Iraida Woodruff PA [address] [place] [address], [address] [place] [address] PCP - General 08/23/25 documented as of this encounter
--- OUTSIDE RECORDS SUMMARY | 2025-10-14 13:36 | XMS_ITS | Encounter Summary ---
Author Organization [facility] Address [address] [place] [address] Care Team Providers Care Backhoe Operator Name Role Phone Iraida Woodruff Primary Care Provider [phone] Encounter Details Date Type Department Care Team (Late Contact Info) Description 09/13/2025 Lab Requisition [facility] - Main Lab 299 [facility] [place] [address] Ria Vivas MD [address] [place] [address] Other termite exterminator helper (current) drug therapy Social History Tobacco Use [...] 2:00 PM EST Office Visit Nephrology - [place] [id number] [place] [address] Christopher Pollard MD [address] [place] [address] documented as of this encounter Procedures Procedure Name Priority Date/Time Associated Diagnosis Comments CBC WITH AUTO DIFFERENTIAL Routine 09/13/2025 6:38 AM EDT Other residential (current) drug therapy CBC AND DIFFERENTIAL Routine 09/13/2025 6:38 AM EDT Other termite exterminator helper (current) drug therapy COMPREHENSIVE METABOLIC PANEL Routine 09/13/2025 6:38 AM EDT Other termite exterminator helper (current) drug therapy documented in this encounter Results * (ABNORMAL) CBC auto differential (09/13/2025 6:38 AM EDT) WBC 3.1(L) 4.8 - 10.8 K/mcL LAB HEMETOLOGY METHOD 09/13/2025 10:18 AM [facility] RBC 4.40 3.80 - 4.80 M/mcL LAB HEMETOLOGY METHOD 09/13/2025 10:18 AM [facility] Hemoglobin 12.0 11.5 - 16.0 g/dL LAB HEMETOLOGY METHOD 09/13/2025 10:18 AM [facility] Hematocrit 38.4 35.0 - 47.0 % LAB HEMETOLOGY METHOD 09/13/2025 10:18 AM [facility] MCV 87.9 79.0 - 98.0 FL LAB HEMETOLOGY METHOD 09/13/2025 10:18 AM [facility] MCH 27.5 27.0 - 32.0 pcg LAB HEMETOLOGY METHOD 09/13/2025 10:18 AM [facility] MCHC 31.3(L) 32.0 - 37.0 g/dL LAB HEMETOLOGY METHOD 09/13/2025 10:18 AM [facility] RDW 16.9(H) 11.0 - 15.0 % LAB HEMETOLOGY METHOD 09/13/2025 10:18 AM [facility] Platelets 209 130 - 400 K/mcL LAB HEMETOLOGY METHOD 09/13/2025 10:18 AM [facility] MPV 12.3(H) 7.0 - 11.0 FL LAB HEMETOLOGY METHOD 09/13/2025 10:18 AM [facility] NRBC 0.0 <1.0 % LAB HEMETOLOGY METHOD 09/13/2025 10:18 AM [facility] NRBC Absolute 0.00 <0.10 K/mcL LAB HEMETOLOGY METHOD 09/13/2025 10:18 AM [facility] Neutrophils Relative 40.5 % LAB HEMETOLOGY METHOD 09/13/2025 10:18 AM [facility] Lymphocytes Relative 43.0 % LAB HEMETOLOGY METHOD 09/13/2025 10:18 AM [facility] Monocytes Relative 13.9 % LAB HEMETOLOGY METHOD 09/13/2025 10:18 AM [facility] Eosinophils Relative 1.3 % LAB HEMETOLOGY METHOD 09/13/2025 10:18 AM [facility] Basophils Relative 1.0 % LAB HEMETOLOGY METHOD 09/13/2025 10:18 AM [facility] Immature Granulocytes Relative 0.3 % LAB HEMETOLOGY METHOD 09/13/2025 10:18 AM [facility] Neutrophils Absolute 1.25(L) 1.50 - 7.00 K/mcL LAB HEMETOLOGY METHOD 09/13/2025 10:18 AM [facility] Lymphocytes Absolute 1.33 1.00 - 5.00 K/mcL LAB HEMETOLOGY METHOD 09/13/2025 10:18 AM [facility] Monocytes Absolute 0.43 0.20 - 1.00 K/mcL LAB HEMETOLOGY METHOD 09/13/2025 10:18 AM [facility] Eosinophils Absolute 0.04 0.00 - 0.50 K/mcL LAB HEMETOLOGY METHOD 09/13/2025 [facility] Basophils Absolute 0.03 0.00 - 0.20 K/mcL LAB HEMETOLOGY METHOD 09/13/2025 10:18 AM [facility] Immature Granulocytes Absolute 0.01 0.00 - 0.03 K/mcL LAB HEMETOLOGY METHOD 09/13/2025 10:18 AM [facility] Blood Venous blood specimen / Unknown Venipuncture / Unknown 09/13/2025 6:38 AM EDT 09/13/2025 8:48 AM EDT us Ria Vivas MD LAB BLOOD ORDERABLES Final Resu lt [facility] [address] [place] [address], [place] [phone] * (ABNORMAL) Comprehensive metabolic panel (09/13/2025 6:38 AM EDT) Sodium 141 133 - 145 mmol/L LAB CHEMISTRY METHOD 09/13/2025 11:22 AM [facility] Potassium 4.2 3.5 - 5.5 mmol/L LAB CHEMISTRY METHOD 09/13/2025 11:22 AM [facility] Chloride 108 96 - 110 mmol/L LAB CHEMISTRY METHOD 09/13/2025 11:22 AM [facility] CO2 25 21 - 32 mmol/L LAB CHEMISTRY METHOD 09/13/2025 11:22 AM [facility] Anion Gap 8 3 - 11 LAB CHEMISTRY METHOD 09/13/2025 11:22 AM [facility] Glucose 71 70 - 100 mg/dL LAB CHEMISTRY METHOD 09/13/2025 11:22 AM [facility] BUN 14 5 - 25 mg/dL LAB CHEMISTRY METHOD 09/13/2025 11:22 AM [facility] Creatinine 0.58 0.50 - 1.10 mg/dL LAB CHEMISTRY METHOD 09/13/2025 11:22 AM [facility] eGFR 128 >=60 mL/min/1. 73m2 LAB CHEMISTRY METHOD 09/13/2025 11:22 AM [facility] Comment:Calculation based on the Chronic Kidney Disease Epidemiology Collaboration (CKD-EPI) equation refit without adjustment for race. BUN/Creatinine Ratio 24.1 LAB CHEMISTRY METHOD 09/13/2025 11:22 AM [facility] Calcium 9.3 8.5 - 10.5 mg/dL LAB CHEMISTRY METHOD 09/13/2025 11:22 AM [facility] AST (SGOT) 51(H) 10 - 42 unit/L LAB CHEMISTRY METHOD 09/13/2025 11:22 AM [facility] ALT (SGPT) 67(H) 10 - 60 unit/L LAB CHEMISTRY METHOD 09/13/2025 11:22 AM [facility] Alkaline Phosphatase 47 42 - 121 unit/L LAB CHEMISTRY METHOD 09/13/2025 11:22 AM [facility] Total Protein 7.8 6.0 - 8.0 g/dL LAB CHEMISTRY METHOD 09/13/2025 11:22 AM [facility] Albumin 2.9(L) 3.2 - 5.0 g/dL LAB CHEMISTRY METHOD 09/13/2025 11:22 AM [facility] Total Bilirubin 0.5 0.0 - 1.4 mg/dL LAB CHEMISTRY METHOD 09/13/2025 11:22 AM [facility] Blood Venous blood specimen / Unknown Venipuncture / Unknown 09/13/2025 6:38 AM EDT 09/13/2025 8:48 AM EDT us Ria Vivas MD LAB BLOOD ORDERABLES Final Resu lt [facility] [address] [place] [address], documented in this encounter Visit Diagnoses Diagnosis Other residential (current) drug therapy documented in this encounter Care Teams Backhoe Operator Relationship Specialty Start Date End Date Iraida Woodruff PA [address] [place] [address], [address] [place] [address] PCP - General 08/23/25 documented as of this encounter
--- OUTSIDE RECORDS SUMMARY | 2025-10-14 13:36 | XMS_ITS | Encounter Summary ---
Author Organization [facility] Address [address] [place] [address] Phone Care Team Providers Care Elementary Special Education Teacher Name Role Phone Darin Restrepo MD Primary Care Provider + Encounter Details Date Type Department Care Team (Late st Contact Info) Description 01/22/2024 Procedure Pass [facility], Ct Scan - [facility] [address] [place] [address] Social History Tobacco Use Types Packs/Day Years [...] documented as of this encounter Care Teams Elementary Special Education Teacher Relationship Specialty Start Date End Date Darin Restrepo MD [address] [place] [id number] PCP - General Internal Medicine 11/30/21 documented as of this encounter Additional Source Comments The information contained in this document represents components of the legal health record. It is not the complete legal health record.[facility]
--- OUTSIDE RECORDS SUMMARY | 2025-10-14 13:36 | XMS_ITS | Encounter Summary ---
Author Organization [facility] Address [address] [place] [address] Care Team Providers Care Assistant Teaching Professor Name Role Phone Iraida Woodruff Primary Care Provider [phone] Encounter Details Date Type Department Care Team (Late Contact Info) Description 09/30/2025 Lab Requisition [facility] - Main Lab [address] [facility] [place] [address] Ria Vivas MD [address] [place] [address] Urinary tract infection, site not specified; Bariatric surgery status; Nutritional deficiency, unspecified; Hypokalemia; Essential (primary) hypertension; Obesity, unspecified; Guillain-Garland syndrome (CMS/HCC V24) Social History Tobacco Use [...] 2:00 PM EST Office Visit Nephrology - [place] [address] [place] [phone] Christopher Pollard MD [address] [facility] [address] [place] [phone] documented as of this encounter Procedures Procedure Name Priority Date/Time Associated Diagnosis Comments CBC WITH AUTO DIFFERENTIAL Routine 09/30/2025 6:30 AM EST Urinary tract infection, site not specified Bariatric surgery status Nutritional deficiency, unspecified Hypokalemia Essential (primary) hypertension Obesity, unspecified Guillain-Garland syndrome (CMS/HCC V24) VITAMIN D 25 HYDROXY Routine 09/30/2025 6:30 AM EST Urinary tract infection, site not specified Bariatric surgery status Nutritional deficiency, unspecified Hypokalemia Essential (primary) hypertension Obesity, unspecified Guillain-Garland syndrome (CMS/HCC V24) CBC AND DIFFERENTIAL Routine 09/30/2025 6:30 AM EST Urinary tract infection, site not specified Bariatric surgery status Nutritional deficiency, unspecified Hypokalemia Essential (primary) hypertension Obesity, unspecified Guillain-Garland syndrome (CMS/HCC V24) THYROID STIMULATING HORMONE Routine 09/30/2025 6:30 AM EST Urinary tract infection, site not specified Bariatric surgery status Nutritional deficiency, unspecified Hypokalemia Essential (primary) hypertension Obesity, unspecified Guillain-Garland syndrome (CMS/HCC V24) FOLATE Routine 09/30/2025 6:30 AM EST Urinary tract infection, site not specified Bariatric surgery status Nutritional deficiency, unspecified Hypokalemia Essential (primary) hypertension Obesity, unspecified Guillain-Garland syndrome (CMS/HCC V24) VITAMIN B12 Routine 09/30/2025 6:30 AM EST Urinary tract infection, site not specified Bariatric surgery status Nutritional deficiency, unspecified Hypokalemia Essential (primary) hypertension Obesity, unspecified Guillain-Garland syndrome (CMS/HCC V24) COMPREHENSIVE METABOLIC PANEL Routine 09/30/2025 6:30 AM EST Urinary tract infection, site not specified Bariatric surgery status Nutritional deficiency, unspecified Hypokalemia Essential (primary) hypertension Obesity, unspecified Guillain-Garland syndrome (CMS/HCC V24) documented in this encounter Results * (ABNORMAL) CBC auto differential (09/30/2025 6:30 AM EST) [facility] WBC 3.9(L) 4.8 - 10.8 K/mcL LAB HEMETOLOGY METHOD 09/30/2025 8:24 AM [facility] LAB RBC 4.00 3.80 - 4.80 M/mcL LAB HEMETOLOGY METHOD 09/30/2025 8:24 AM [facility] LAB Hemoglobin 11.4(L) 11.5 - 16.0 g/dL LAB HEMETOLOGY METHOD 09/30/2025 8:24 AM [facility] LAB Hematocrit 36.2 35.0 - 47.0 % LAB HEMETOLOGY METHOD 09/30/2025 8:24 AM [facility] LAB MCV 89.6 79.0 - 98.0 FL LAB HEMETOLOGY METHOD 09/30/2025 8:24 AM [facility] LAB MCH 28.2 27.0 - 32.0 pcg LAB HEMETOLOGY METHOD 09/30/2025 8:24 AM [facility] LAB MCHC 31.5(L) 32.0 - 37.0 g/dL LAB HEMETOLOGY METHOD 09/30/2025 8:24 AM [facility] LAB RDW 16.9(H) 11.0 - 15.0 % LAB HEMETOLOGY METHOD 09/30/2025 8:24 AM [facility] LAB Platelets 211 130 - 400 K/mcL LAB HEMETOLOGY METHOD 09/30/2025 8:24 AM [facility] LAB MPV 11.0 7.0 - 11.0 FL LAB HEMETOLOGY METHOD 09/30/2025 8:24 AM [facility] LAB NRBC 0.0 <1.0 % LAB HEMETOLOGY METHOD 09/30/2025 8:24 AM [facility] LAB NRBC Absolute 0.00 <0.10 K/mcL LAB HEMETOLOGY METHOD 09/30/2025 8:24 AM [facility] LAB Neutrophils Relative 51.0 % LAB HEMETOLOGY METHOD 09/30/2025 8:24 AM [facility] LAB Lymphocytes Relative 33.8 % LAB HEMETOLOGY METHOD 09/30/2025 8:24 AM [facility] Monocytes Relative 12.7 % LAB HEMETOLOGY METHOD 09/30/2025 8:24 AM [facility] LAB Eosinophils Relative 1.5 % LAB HEMETOLOGY METHOD 09/30/2025 8:24 AM [facility] Basophils Relative 0.5 % LAB HEMETOLOGY METHOD 09/30/2025 8:24 AM [facility] Immature Granulocytes Relative 0.5 % LAB HEMETOLOGY METHOD 09/30/2025 8:24 AM [facility] Neutrophils Absolute 2.01 1.50 - 7.00 K/mcL LAB HEMETOLOGY METHOD 09/30/2025 8:24 AM [facility] Lymphocytes Absolute 1.33 1.00 - 5.00 K/mcL LAB HEMETOLOGY METHOD 09/30/2025 8:24 AM [facility] Monocytes Absolute 0.50 0.20 - 1.00 K/mcL LAB HEMETOLOGY METHOD 09/30/2025 8:24 AM [facility] Eosinophils Absolute 0.06 0.00 - 0.50 K/mcL LAB HEMETOLOGY METHOD 09/30/2025 8:24 AM [facility] Basophils Absolute 0.02 0.00 - 0.20 K/mcL LAB HEMETOLOGY METHOD 09/30/2025 8:24 AM [facility] Immature Granulocytes Absolute 0.02 0.00 - 0.03 K/mcL LAB HEMETOLOGY METHOD 09/30/2025 8:24 AM [facility] Blood Venous blood specimen / Unknown Venipuncture / Unknown 09/30/2025 6:30 AM EST 09/30/2025 7:42 AM EST us Ria Vivas MD LAB BLOOD ORDERABLES Final Resu lt Performing Organization Address City/[facility]/ZIP Co de Phone Number [facility] [address] [place] [address], [place] [phone] * (ABNORMAL) Vitamin D 25 hydroxy (09/30/2025 6:30 AM EST) [facility] Vit D, 25-Hydroxy 29.9(L) 30.0 - 80.0 ng/mL LAB CHEMISTRY METHOD 09/30/2025 10:22 AM EST [facility] Blood Venous blood specimen / Unknown Venipuncture / Unknown 09/30/2025 6:30 AM EST 09/30/2025 7:42 AM EST us Ria Vivas MD LAB BLOOD ORDERABLES Final Resu lt Performing Organization Address [facility] de Phone Number [facility] [address] [place] [address], [place] [phone] * Vitamin B12 (09/30/2025 6:30 AM EST) [facility] Vitamin B-12 554 250 - 900 pcg/mL LAB CHEMISTRY METHOD 09/30/2025 9:21 AM EST [facility] Blood Venous blood specimen / Unknown Venipuncture / Unknown 09/30/2025 6:30 AM EST 09/30/2025 7:42 AM EST us Ria Vivas MD LAB BLOOD ORDERABLES Final Resu lt Performing Organization Address City/[facility]/ZIP Co de Phone Number [facility] [address] [place] [address], [place] [phone] * (ABNORMAL) Folate (09/30/2025 6:30 AM EST) [facility] Folate 18.5(H) 2.8 - 17.0 ng/ml LAB CHEMISTRY METHOD 09/30/2025 9:21 AM EST [facility] Blood Venous blood specimen / Unknown Venipuncture / Unknown 09/30/2025 6:30 AM EST 09/30/2025 7:42 AM EST Ria Vivas MD LAB BLOOD ORDERABLES Final Resu lt [facility] [address] [place] [address], [place] [phone] * Thyroid stimulating hormone (09/30/2025 6:30 AM EST) Pathologist [facility] TSH 2.13 0.40 - 4.00 mcIU/mL LAB CHEMISTRY METHOD 09/30/2025 10:23 AM EST [facility] Blood Venous blood specimen / Unknown Venipuncture / Unknown 09/30/2025 6:30 AM EST 09/30/2025 7:42 AM EST Ria Vivas MD LAB BLOOD ORDERABLES Final Resu lt Performing Organization Address City/[facility]/ZIP Co de Phone Number [facility] [address] [place] [address], [place] [phone] * (ABNORMAL) Comprehensive metabolic panel (09/30/2025 6:30 AM EST) Pathologist [facility] Sodium 139 133 - 145 mmol/L LAB CHEMISTRY METHOD 09/30/2025 8:57 AM EST [facility] Potassium 3.8 3.5 - 5.5 mmol/L LAB CHEMISTRY METHOD 09/30/2025 8:57 AM EST [facility] Chloride 109 96 - 110 mmol/L LAB CHEMISTRY METHOD 09/30/2025 8:57 AM EST [facility] CO2 23 21 - 32 mmol/L LAB CHEMISTRY METHOD 09/30/2025 8:57 AM EST [facility] Anion Gap 7 3 - 11 LAB CHEMISTRY METHOD 09/30/2025 8:57 AM [facility] Glucose 76 70 - 100 mg/dL LAB CHEMISTRY METHOD 09/30/2025 8:57 AM [facility] BUN 7 5 - 25 mg/dL LAB CHEMISTRY METHOD 09/30/2025 8:57 AM [facility] Creatinine 0.60 0.50 - 1.10 mg/dL LAB CHEMISTRY METHOD 09/30/2025 8:57 AM [facility] eGFR 127 >=60 mL/min/1. 73m2 LAB CHEMISTRY METHOD 09/30/2025 8:57 AM [facility] Comment:Calculation based on the Chronic Kidney Disease Epidemiology Collaboration (CKD-EPI) equation refit without adjustment for race. BUN/Creatinine Ratio 11.7 LAB CHEMISTRY METHOD 09/30/2025 8:57 AM [facility] Calcium 9.1 8.5 - 10.5 mg/dL LAB CHEMISTRY METHOD 09/30/2025 8:57 AM [facility] AST (SGOT) 34 10 - 42 unit/L LAB CHEMISTRY METHOD 09/30/2025 8:57 AM [facility] ALT (SGPT) 41 10 - 60 unit/L LAB CHEMISTRY METHOD 09/30/2025 8:57 AM [facility] Alkaline Phosphatase 40(L) 42 - 121 unit/L LAB CHEMISTRY METHOD 09/30/2025 8:57 AM [facility] Total Protein 6.6 6.0 - 8.0 g/dL LAB CHEMISTRY METHOD 09/30/2025 8:57 AM [facility] Albumin 3.2 3.2 - 5.0 g/dL LAB CHEMISTRY METHOD 09/30/2025 8:57 AM [facility] Total Bilirubin 0.6 0.0 - 1.4 mg/dL LAB CHEMISTRY METHOD 09/30/2025 8:57 AM [facility] Blood Venous blood specimen / Unknown Venipuncture / Unknown 09/30/2025 6:30 AM EST 09/30/2025 7:42 AM EST us Ria Vivas MD LAB BLOOD ORDERABLES Final Resu lt [facility] ([facility]) [facility] [address] [place] [address], documented in this encounter Visit Diagnoses Diagnosis Urinary tract infection, site not specified Bariatric surgery status Nutritional deficiency, unspecified Hypokalemia Hypopotassemia Essential (primary) hypertension Unspecified essential hypertension Obesity, unspecified 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
--- OUTSIDE RECORDS SUMMARY | 2025-10-14 13:36 | XMS_ITS | Encounter Summary ---
Author Organization [facility] Address [address] [place] [address] Care Team Providers Care Railroad Car Letterer Name Role Phone Iraida Woodruff Primary Care Provider [phone] Encounter Details Date Type Department Care Team (Late st Contact Info) Description 10/08/2025 Lab Requisition [facility] - Main Lab [address] [facility] [place] [address] Ria Vivas MD [address] [place] [address] Nutritional deficiency, unspecified Social History Tobacco Use Types Packs/Day Years [...] 2:00 PM EST Office Visit Nephrology - [place] [address] [place] [address] Christopher Pollard MD [address] [place] [address] documented as of this encounter Procedures Procedure Name Priority Date/Time Associated Diagnosis Comments COMPLETE BLOOD COUNT Routine 10/08/2025 8:30 AM EST Nutritional deficiency, unspecified COMPREHENSIVE METABOLIC PANEL Routine 10/08/2025 8:30 AM EST Nutritional deficiency, unspecified documented in this encounter Results * (ABNORMAL) Comprehensive metabolic panel (10/08/2025 8:30 AM EST) Sodium 141 133 - 145 mmol/L LAB CHEMISTRY METHOD 10/08/2025 10:48 AM [facility] Potassium 3.5 3.5 - 5.5 mmol/L LAB CHEMISTRY METHOD 10/08/2025 10:48 AM [facility] Chloride 107 96 - 110 mmol/L LAB CHEMISTRY METHOD 10/08/2025 10:48 AM [facility] CO2 26 21 - 32 mmol/L LAB CHEMISTRY METHOD 10/08/2025 10:48 AM [facility] Anion Gap 8 3 - 11 LAB CHEMISTRY METHOD 10/08/2025 10:48 AM [facility] Glucose 80 70 - 100 mg/dL LAB CHEMISTRY METHOD 10/08/2025 10:48 AM [facility] BUN 6 5 - 25 mg/dL LAB CHEMISTRY METHOD 10/08/2025 10:48 AM [facility] Creatinine 0.40(L) 0.50 - 1.10 mg/dL LAB CHEMISTRY METHOD 10/08/2025 10:48 AM [facility] eGFR 140 >=60 mL/min/1. 73m2 LAB CHEMISTRY METHOD 10/08/2025 10:48 AM [facility] Comment:Calculation based on the Chronic Kidney Disease Epidemiology Collaboration (CKD-EPI) equation refit without adjustment for race. BUN/Creatinine Ratio 15.0 LAB CHEMISTRY METHOD 10/08/2025 10:48 AM [facility] Calcium 9.0 8.5 - 10.5 mg/dL LAB CHEMISTRY METHOD 10/08/2025 10:48 AM [facility] AST (SGOT) 32 10 - 42 unit/L LAB CHEMISTRY METHOD 10/08/2025 10:48 AM [facility] ALT (SGPT) 38 10 - 60 unit/L LAB CHEMISTRY METHOD 10/08/2025 10:48 AM [facility] Alkaline Phosphatase 41(L) 42 - 121 unit/L LAB CHEMISTRY METHOD 10/08/2025 10:48 AM [facility] Total Protein 6.4 6.0 - 8.0 g/dL LAB CHEMISTRY METHOD 10/08/2025 10:48 AM [facility] Albumin 3.3 3.2 - 5.0 g/dL LAB CHEMISTRY METHOD 10/08/2025 10:48 AM [facility] Total Bilirubin 0.6 0.0 - 1.4 mg/dL LAB CHEMISTRY METHOD 10/08/2025 10:48 AM [facility] Blood Venous blood specimen / Unknown Venipuncture / Unknown 10/08/2025 8:30 AM EST 10/08/2025 9:21 AM EST us Ria Vivas MD LAB BLOOD ORDERABLES Final Resu lt [facility] [address] [place] [address], * (ABNORMAL) Complete blood count (10/08/2025 8:30 AM EST) WBC 4.8 4.8 - 10.8 K/mcL LAB HEMETOLOGY METHOD 10/08/2025 10:15 AM [facility] RBC 4.10 3.80 - 4.80 M/mcL LAB HEMETOLOGY METHOD 10/08/2025 10:15 AM [facility] Hemoglobin 11.8 11.5 - 16.0 g/dL LAB HEMETOLOGY METHOD 10/08/2025 10:15 AM [facility] Hematocrit 36.5 35.0 - 47.0 % LAB HEMETOLOGY METHOD 10/08/2025 10:15 AM EST [facility] MCV 89.9 79.0 - 98.0 FL LAB HEMETOLOGY METHOD 10/08/2025 10:15 AM EST [facility] MCH 29.1 27.0 - 32.0 pcg LAB HEMETOLOGY METHOD 10/08/2025 10:15 AM EST [facility] MCHC 32.3 32.0 - 37.0 g/dL LAB HEMETOLOGY METHOD 10/08/2025 10:15 AM EST [facility] RDW 15.6(H) 11.0 - 15.0 % LAB HEMETOLOGY METHOD 10/08/2025 10:15 AM EST [facility] Platelets 199 130 - 400 K/mcL LAB HEMETOLOGY METHOD 10/08/2025 10:15 AM EST [facility] MPV 10.7 7.0 - 11.0 FL LAB HEMETOLOGY METHOD 10/08/2025 10:15 AM EST [facility] NRBC 0.0 <1.0 % LAB HEMETOLOGY METHOD 10/08/2025 10:15 AM EST [facility] NRBC Absolute 0.00 <0.10 K/mcL LAB HEMETOLOGY METHOD 10/08/2025 10:15 AM [facility] Blood Venous blood specimen / Unknown Venipuncture / Unknown 10/08/2025 8:30 AM EST 10/08/2025 9:21 AM EST us Ria Vivas MD LAB BLOOD ORDERABLES Final Resu lt [facility] [address] [place] [address], documented in this encounter Visit Diagnoses Diagnosis Nutritional deficiency, unspecified documented in this encounter Care Teams Railroad Car Letterer Relationship Specialty Start Date End Date Iraida Woodruff PA [address] [facility], [address] [place] [address] PCP - General 08/23/25 documented as of this encounter
--- OUTSIDE RECORDS SUMMARY | 2025-10-14 13:36 | XMS_ITS | Encounter Summary ---
Author Organization [facility] Address [address] [facility] [address] [place] [address] Phone Care Team Providers Care Divider Operator Name Role Phone Darin Restrepo MD Primary Care Provider + Encounter Details Date Type Department Care Team (Late st Contact Info) Description 10/10/2022 Procedure Pass [facility], Ct Scan - [address] [address] Social History Tobacco Use Types Packs/Day Years [...] documented as of this encounter Care Teams Divider Operator Relationship Specialty Start Date End Date Darin Restrepo MD [address] [place] [id number] (work) PCP - General Internal Medicine 11/30/21 documented as of this encounter Additional Source Comments The information contained in this document represents components of the legal health record. It is not the complete legal health record.[facility]
--- OUTSIDE RECORDS SUMMARY | 2025-10-14 13:37 | XMS_ITS | Encounter Summary ---
Author Organization [facility] Address [address] [place] [address] Care Team Providers Care Platform Engineer Name Role Phone Iraida Woodruff Primary Care Provider [phone] Encounter Details Date Type Department Care Team (Late st Contact Info) Description 10/10/2025 Lab Requisition [facility] - Main Lab [address] [facility] [place] [address] Ria Vivas MD [address] [place] [address] Guillain-La Salle syndrome (CMS/HCC V24) Social History Tobacco Use [...] 2:00 PM EST Office Visit Nephrology - [place] [id number] [place] [address] Christopher Pollard MD [address] [facility] [address] [place] [address] documented as of this encounter Procedures Procedure Name Priority Date/Time Associated Diagnosis Comments COMPLETE BLOOD COUNT Routine 10/10/2025 1:06 PM EST Guillain-La Salle syndrome (CMS/HCC V24) BASIC METABOLIC PANEL Routine 10/10/2025 1:06 PM EST Guillain-La Salle syndrome (CMS/HCC V24) documented in this encounter Results * Basic metabolic panel (10/10/2025 1:06 PM EST) Sodium 140 133 - 145 mmol/L LAB CHEMISTRY METHOD 10/10/2025 2:03 PM [facility] Potassium 3.5 3.5 - 5.5 mmol/L LAB CHEMISTRY METHOD 10/10/2025 2:03 PM [facility] Chloride 107 96 - 110 mmol/L LAB CHEMISTRY METHOD 10/10/2025 2:03 PM [facility] CO2 22 21 - 32 mmol/L LAB CHEMISTRY METHOD 10/10/2025 2:03 PM [facility] Anion Gap 11 3 - 11 LAB CHEMISTRY METHOD 10/10/2025 2:03 PM [facility] Glucose 77 70 - 100 mg/dL LAB CHEMISTRY METHOD 10/10/2025 2:03 PM [facility] BUN 8 5 - 25 mg/dL LAB CHEMISTRY METHOD 10/10/2025 2:03 PM [facility] Creatinine 0.61 0.50 - 1.10 mg/dL LAB CHEMISTRY METHOD 10/10/2025 2:03 PM [facility] eGFR 127 >=60 mL/min/1. 73m2 LAB CHEMISTRY METHOD 10/10/2025 2:03 PM [facility] Comment:Calculation based on the Chronic Kidney Disease Epidemiology Collaboration (CKD-EPI) equation refit without adjustment for race. BUN/Creatinine Ratio 13.1 LAB CHEMISTRY METHOD 10/10/2025 2:03 PM [facility] Calcium 9.6 8.5 - 10.5 mg/dL LAB CHEMISTRY METHOD 10/10/2025 2:03 PM [facility] Blood Venous blood specimen / Unknown Venipuncture / Unknown 10/10/2025 1:06 PM EST 10/10/2025 1:34 PM EST us Ria Vivas MD LAB BLOOD ORDERABLES Final Resu lt [facility] [address] [place] [address], [place] [phone] * (ABNORMAL) Complete blood count (10/10/2025 1:06 PM EST) [facility] WBC 8.1 4.8 - 10.8 K/mcL LAB HEMETOLOGY METHOD 10/10/2025 1:40 PM EST [facility] RBC 4.50 3.80 - 4.80 M/mcL LAB HEMETOLOGY METHOD 10/10/2025 1:40 PM EST [facility] Hemoglobin 13.2 11.5 - 16.0 g/dL LAB HEMETOLOGY METHOD 10/10/2025 1:40 PM EST [facility] Hematocrit 39.7 35.0 - 47.0 % LAB HEMETOLOGY METHOD 10/10/2025 1:40 PM EST [facility] MCV 88.4 79.0 - 98.0 FL LAB HEMETOLOGY METHOD 10/10/2025 1:40 PM EST [facility] MCH 29.4 27.0 - 32.0 pcg LAB HEMETOLOGY METHOD 10/10/2025 1:40 PM EST [facility] MCHC 33.2 32.0 - 37.0 g/dL LAB HEMETOLOGY METHOD 10/10/2025 1:40 PM EST [facility] RDW 15.4(H) 11.0 - 15.0 % LAB HEMETOLOGY METHOD 10/10/2025 1:40 PM [facility] Platelets 270 130 - 400 K/mcL LAB HEMETOLOGY METHOD 10/10/2025 1:40 PM EST [facility] MPV 10.6 7.0 - 11.0 FL LAB HEMETOLOGY METHOD 10/10/2025 1:40 PM EST [facility] NRBC 0.0 <1.0 % LAB HEMETOLOGY METHOD 10/10/2025 1:40 PM EST [facility] NRBC Absolute 0.00 <0.10 K/mcL LAB HEMETOLOGY METHOD 10/10/2025 1:40 PM EST [facility] Blood Venous blood specimen / Unknown Venipuncture / Unknown 10/10/2025 1:06 PM EST 10/10/2025 1:34 PM EST us Ria Vivas MD LAB BLOOD ORDERABLES Final Resu lt [facility] [address] [place] [address], documented in this encounter Visit Diagnoses Diagnosis 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
--- OUTSIDE RECORDS SUMMARY | 2025-10-14 13:37 | XMS_ITS | Patient Health Record ---
Author Organization [facility] Address [address] [place] [address] Support Name Relationship Address Phone Nena Zafar Guarantor Unknown [phone] Allergies Allergen (clinical drug ingredient) Drug/Non Drug [...] Status Risk Notes Problem Morbid obesity (disorder) (691798419) Morbid (severe) obesity due to excess calories (E66.01) Active confirmed Problem Generalized anxiety disorder (99088811) Generalized anxiety disorder (F41.1) Active confirmed Problem Migraine with aura (0200705) Migraine with aura, not intractable, without status migrainosus (G43.109) Active confirmed Problem Obstructive sleep apnea syndrome (disorder) (67165482) Obstructive sleep apnea (adult) (pediatric) (G47.33) Active confirmed Problem Essential hypertension (55719209) Essential (primary) hypertension (I10) Active confirmed Problem Mild intermittent asthma (140425511) Mild intermittent asthma, uncomplicated (J45.20) Active confirmed Problem Gastro-esophageal reflux disease without esophagitis (142782103) Gastro-esophageal reflux disease without esophagitis (K21.9) Active confirmed Problem Attention deficit hyperactivity disorder, 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) Attention and concentration deficit (R41.840) Active confirmed Plan Of Treatment No Information Insurance Providers Payer Name Payer Address Payer Phone Subscriber Number Group Number Insured Name Patient Relationship to Insured Coverage Start Date Coverage End Date [facility] [address] [place] [address] [id number] Nena Ballard Self - patient is the insured Medical (General) History Medical History History ICD Code Generalized anxiety disorder/major depre ssive disorder, sees psychiatry ADD GERD Mild intermittent asthma Migraine headaches with aura Hypertension AIDAN cannot tolerate CPAP Surgical History Surgery Date(Month/Year) strabismus surgery
--- OUTSIDE RECORDS SUMMARY | 2025-10-14 13:37 | XMS_ITS | Encounter Summary ---
Author Organization [facility] Address [address] [place] [address] Phone Care Team Providers Care Transportation Lead Name Role Phone Arpita White MD Primary Care Provider Martina Hunter MD Primary Care Provider [phone] Darin Restrepo MD Primary Care Provider + Encounter Details Date Type Department Care Team (Latest Contact Info) Description 10/24/2017 Transcribe Orders [facility] [address] [place] [address] Cameron Jones MD [address] [place] [address] Hirsutism (Primary Dx); Oligomenorrhea, unspecified [...] (10/24/2017 8:29 AM EST) HDL 51 mg/dL [facility] Comment: Interpretation: Risk Level Females Decreased >55mg/dL Average 50-55 mg/dL Increased <50 mg/dL CHOLESTEROL 141 0 - 240 mg/dL [facility] Comment: Pediatric Reference Ranges for 2 to 18 years Acceptable: Less than 170 mg/dL Borderline: 170 - 199 mg/dL High: Greater than or equal to 200 mg/dL TRIGLYCERIDES 73 30 - 160 mg/dL [facility] LDL 75 50 - 129 mg/dL [facility] Comment: LDL levels in terms of risk for coronary heart disease: <100 mg/dL: Optimal 100-129 mg/dL: Near or above optimal 130-159 mg/dL: Borderline high 160-189 mg/dL: High >190 mg/dL: Very High CARDIAC RISK RATIO 2.8(L) 3.3 - 4.4 C [facility] Blood 10/24/2017 8:29 AM EST 10/24/2017 8:33 AM EST Cameron Jones MD LAB BLOOD BKR ORDERABLE S Final Result Performing Organization Address City/State/[facility] Co de Phone Number [address] [address] documented in this encounter Visit Diagnoses Diagnosis Hirsutism- Primary Oligomenorrhea, unspecified type documented in this encounter Additional Health Concerns Infection Onset Date Last Indicated Resolved Time CoV-Risk 02/16/2023 02/16/2023 02/27/2023 1:22 AM EDT CoV-Risk 01/21/2024 01/21/2024 02/01/2024 1:22 AM EST documented as of this encounter Care Teams Transportation Lead Relationship Specialty Start Date End Date Arpita White MD [address] [place] [phone] PCP - General Pediatrics 10/24/17 11/22/19 Martina Torres MD [address] [place] [phone] PCP - General Internal Medicine 11/23/19 11/29/21 Darin Restrepo MD [address] [place] [phone] PCP - General Internal Medicine 11/30/21 documented as of this encounter Additional Source Comments The information contained in this document represents components of the legal health record. It is not the complete legal health record.[facility]
--- OUTSIDE RECORDS SUMMARY | 2025-10-14 13:37 | XMS_ITS | Clinical Summary ---
Author Organization [facility] Address [address] [place] [address] Phone Care Team Providers Care Dietician Name Role Phone Darin Restrepo MD Primary [...] Care Team Description 09/23/2025 Orders Only [facility] [address] [place] [address] Homehealth, Interface Provider, from Last [...] 04/27/2031 04/27/2021, 011 HIB VACCINES Completed 06/18/2000, 0 05/2000, 1999, Additional history exists HPV VACCINES [...] EST) SODIUM 140 133 - 146 mmol/L [facility] CHLORIDE 103 96 - 108 mmol/L [facility] POTASSIUM 4.6 3.3 - 5.1 mmol/L [facility] CO2 27 21 - 35 mmol/L [facility] BUN 15 6 - 19 mg/dL [facility] CREATININE 1.00 0.5 - 1.5 mg/dL [facility] GLUCOSE 100(H) 70 - 99 mg/dL [facility] CALCIUM 9.2 8.4 - 10.3 mg/dL [facility] EGFR 81 >59 mL/min/1.7 3m2 [facility] Comment:Estimated glomerular filtration rate calculated using the CKD-EPI refit equation. ANION GAP 15 10 - 20 mmol/L [facility] Blood 01/22/2024 12:3 5 AM EST 01/22/2024 12:40 AM EST us Grayson Ivan DO LAB BLOOD BKR ORDERABL ES Final Result [address] [address] from Last 3 Months or Most Recently Relevant to Health Maintenance [place] [address] MEDICARE REPLACEMENT [facility] MEDICARE REPLACEMENT Member Subscriber Plan / Payer (Ef fective 2022-) Name:Tk Ferrer Relation to Subscriber:Self Name:Tk Ferrer Payer ID:[id number] (NAIC) Group ID:[id number] Type:Medicare Address: [place] [id number] [place] [id number] [facility] MEDICARE REPLACEMENT MEDICARE REPLACEMENT MEDICARE REPLACEMENT MEDICARE REPLACEMENT Member Subscriber Plan / Payer (Ef fective 2022-) Name:kT Ferrer Relation to Subscriber:Self Name:Tk Ferrer Payer ID:[id number] (NAIC) Group ID:[id number] Type:Medicare Address: [place] [phone] [facility] Care Teams Dietician Relationship Specialty Start Date End Date Darin Restrepo MD [address] [place] [phone] PCP - General Internal Medicine 11/30/21 Additional Source Comments The information contained in this document represents components of the legal health record. It is not the complete legal health record.[facility]
--- OUTSIDE RECORDS SUMMARY | 2025-10-14 13:37 | XMS_ITS | Clinical Summary ---
Author Organization [facility] [address] [place] [address] [place] [phone] Phone Care Team Providers Care Traffic Warehouse Supervisor Name Role Phone Iraida Woodruff Primary Care Provider [phone] Allergies Active Allergy Reactions Criticality Noted Date Comments Cephalexin 10/23/2020 Burning sensation all over body. Doxycycline Hyclate 10/23/2020 hives Penaten 02/20/2023 Penicillin G Hives High 02/17/2023 Pt stated had bad reaction. She had hives all over the body. Sulfa (Sulfonamide Antibiotics) 03/06/2021 Medications cloNIDine ([id number] ) 0.3 mg/[address] 1 Patch onto the skin once a week. 4 Active emollient comb no.2, bulk, ointment Apply 0.5 g topically 2 times daily. 5% gabapentin ointment Sig: Apply 0.5 g daily to affected area Patient phone number: [phone] (home) 3 Active cholecalciferol (VITAMIN D-3) 1,250 [...] processing disorder 08/27/2024 Overview (08/27/2024): according to [facility] hearing report dated 01-15-13 Report from [...] obesity with BMI of 6 0.0-69.9, adult ([facility] V24, [facility] V28) 08/27/2024 Chlamydia 11/14/2023 [...] Recommended ACT 06-06 = 20 05-04-15: seen [facility] - asthma exacerbation as of 08-08- no prob since 03-27-16: seen [facility]- 5 d pred 40mg As of 11-08- [...] eval confirms dx of ADHD- accommodations in [employer], [employer]- full inclusion 03-07-15: normal [...] Encounters Date Type Department Care Team Description 10/10/2025 Lab Requisition [facility] Main Lab [address] [facility] [employer] [place] [phone] Ria Vivas MD 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 Lab Requisition [facility] Lab [address] [place] [phone] Ria Vivas MD Nutritional deficiency, unspecified 09/30/2025 Lab Requisition [facility] Lab [address] [place] [phone] Ria Vivas MD Urinary tract infection, site not specified 09/30/2025 Lab Requisition [facility] Lab [address] [place] [phone] Ria Vivas MD Urinary tract infection, site not specified; Bariatric surgery status; Nutritional deficiency, unspecified; Hypokalemia; Essential (primary) hypertension; Obesity, unspecified; 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) 09/23/2025 Lab Requisition [facility] Lab [address] [place] [phone] Sushma Montana PA Encounter for other general examination 09/19/2025 Lab Requisition [facility] Lab [address] [place] [phone] Malia Gardner PA Encounter for other general examination 09/13/2025 Lab Requisition [facility] Lab [address] [place] [phone] Ria Vivas MD Other buttermaker helper (current) drug therapy 09/10/2025 Lab Requisition [facility] Lab [address] [place] [phone] Isabella Wright PA Encounter for other general examination 08/22/2025 Lab Requisition [facility] Lab [address] [place] [phone] Lasha Moctezuma PA Urinary tract infection, site not specified from Last 3 Months Immunizations Immunization Administration Dates Next Due DTaP (Infanrix) 6wks to less than 7yo ,07/17/2000,1999,09/04,1999 [id number] (Pentacel) 2mo to less than 5yo 06/18/2000,1999,1999,06/01 H1N1 Inj Preservative Free 12/22/2009 HPV, Quadrivalent 04/30/2013,07/14/2012,04/14/20 12 Hepatitis B (Gmkbbvw-C-Mlsoc , Recombivax HB-Adult) 19yo and older 07/12/2020,02/09/2020,01/05/2020 [...] 04/27/2003,06/12/2000 Meningococcal MCV4P 08/08/2015,04/14/2012 PPD Test 11/10/2019 Scribd SARS-CoV-2 COVID-19, mRNA, LNP-S, preservative free 09/04/2021 [...] TUBES OTHER SURGICAL HISTORY age 1.5yr PROCEDURE: DE BRONCHOSCOPY W/TRANSBRONCHIAL LUNG BX 1 LOBE EYE SURGERY PROCEDURE: HISTORICAL EYE SURGERY Medical History Medical History Date Comments Essential hypertension 08/31/2019 DX:Essent ial hypertension Migraine with aura DX:Migraine w ith aura; COMMENT: Naprosyn 04-14-12: worsening- started amitriptyline 25 mg hs Saw neurologist and is on topamax- now 100 mg 08-08-15: ped neuro- verapamil 40 mg bid in addition to [id number] mg hs; fioricet PRN, riboflavin, magnesium 10-10-15: [...] 2:00 PM EST Office Visit Nephrology - [facility] [place] [address] [place] [phone] Christopher Pollard MD [address] [place] [phone] Health Maintenance Due Date Last Done Comments [...] 09/05/2022, 09/05/2022 Hypertension/CHF/CAD Annual BMP Blood Test 10/10/2026 10/10/2025, 10/08/2025, 09/30/2025, Additional history exists Cholesterol Screening (Lipid Panel) [...] Date/Time Associated Diagnosis Comments BASIC METABOLIC PANEL Routine 10/10/2025 1:06 PM EST Guillain-Columbus syndrome (CMS/HCC V24) COMPLETE BLOOD COUNT Routine 10/10/2025 1:06 PM EST Guillain-Columbus syndrome ([facility]/HCC V24) COMPREHENSIVE METABOLIC PANEL Routine 10/08/2025 8:30 AM EST Nutritional deficiency, unspecified COMPLETE BLOOD COUNT Routine 10/08/2025 8:30 AM EST Nutritional deficiency, unspecified CBC WITH AUTO DIFFERENTIAL Routine 09/30/2025 6:30 AM EST Urinary tract infection, site not specified Bariatric surgery status Nutritional deficiency, unspecified Hypokalemia Essential (primary) hypertension Obesity, unspecified Guillain-Columbus syndrome (CMS/HCC V24) VITAMIN D 25 HYDROXY Routine 09/30/2025 6:30 AM EST Urinary tract infection, site not specified Bariatric surgery status Nutritional deficiency, unspecified Hypokalemia Essential (primary) hypertension Obesity, unspecified 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) VITAMIN B12 Routine 09/30/2025 6:30 AM EST Urinary tract infection, site not specified Bariatric surgery status Nutritional deficiency, unspecified Hypokalemia Essential (primary) hypertension Obesity, unspecified Guillain-Columbus syndrome (CMS/[facility] V24) FOLATE Routine 09/30/2025 6:30 AM EST Urinary tract infection, site not specified Bariatric surgery status Nutritional deficiency, unspecified Hypokalemia Essential (primary) hypertension Obesity, unspecified Guillain-Columbus syndrome (CMS/[facility] V24) THYROID STIMULATING HORMONE Routine 09/30/2025 6:30 AM EST Urinary tract infection, site not specified Bariatric surgery status Nutritional deficiency, unspecified Hypokalemia Essential (primary) hypertension Obesity, unspecified 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) COMPREHENSIVE METABOLIC PANEL Routine 09/30/2025 6:30 AM EST Urinary tract infection, site not specified Bariatric surgery status Nutritional deficiency, unspecified Hypokalemia Essential (primary) hypertension Obesity, unspecified 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) CBC AND DIFFERENTIAL Routine 09/30/2025 6:30 AM EST Urinary tract infection, site not specified Bariatric surgery status Nutritional deficiency, unspecified Hypokalemia Essential (primary) hypertension Obesity, unspecified 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) URINALYSIS WITH REFLEX MICROSCOPIC [...] DIFFERENTIAL Routine 09/13/2025 6:38 AM EDT Other buttermaker helper (current) drug therapy COMPREHENSIVE METABOLIC PANEL Routine 09/13/2025 6:38 AM EDT Other care home (current) drug therapy CBC AND DIFFERENTIAL Routine 09/13/2025 6:38 AM EDT Other care home (current) drug therapy MANUAL DIFFERENTIAL - SYSMEX [...] site not specified GONORRHEA/CHLAMYDIA SCRREENING Routine 11/13/2023 DEPRESSION SCREENING Routine 10/06/2023 LIPID PANEL Routine 12/06/2022 PAP SMEAR Routine 09/05/2022 from Last 3 Months or Most Recently Relevant to Health Maintenance Results * (ABNORMAL) Complete blood count (10/10/2025 1:06 PM EST) Only the most recent of2 resultswithin the time period is included. WBC 8.1 4.8 - 10.8 K/mcL LAB HEMETOLOGY METHOD 10/10/2025 1:40 PM [facility] RBC 4.50 3.80 - 4.80 M/mcL LAB HEMETOLOGY METHOD 10/10/2025 1:40 PM [facility] LAB Hemoglobin 13.2 11.5 - 16.0 g/dL LAB HEMETOLOGY METHOD 10/10/2025 1:40 PM [facility] LAB Hematocrit 39.7 35.0 - 47.0 % LAB HEMETOLOGY METHOD 10/10/2025 1:40 PM [facility] MCV 88.4 79.0 - 98.0 FL LAB HEMETOLOGY METHOD 10/10/2025 1:40 PM [facility] LAB MCH 29.4 27.0 - 32.0 pcg LAB HEMETOLOGY METHOD 10/10/2025 1:40 PM [facility] LAB MCHC 33.2 32.0 - 37.0 g/dL LAB HEMETOLOGY METHOD 10/10/2025 1:40 PM [facility] RDW 15.4(H) 11.0 - 15.0 % LAB HEMETOLOGY METHOD 10/10/2025 1:40 PM [facility] Platelets 270 130 - 400 [...] Resu lt [facility] [address] [place] [address], [place] [phone] * Basic metabolic panel (10/10/2025 1:06 PM EST) Only the most recent of2 resultswithin the time period is included. Sodium 140 133 - 145 mmol/L LAB CHEMISTRY METHOD 10/10/2025 2:03 PM [facility] Potassium 3.5 3.5 - 5.5 mmol/L LAB CHEMISTRY METHOD 10/10/2025 2:03 PM [facility] Chloride 107 96 - 110 mmol/L LAB CHEMISTRY METHOD 10/10/2025 2:03 PM [facility] CO2 22 21 - 32 mmol/L LAB CHEMISTRY METHOD 10/10/2025 2:03 PM [facility] Anion Gap 11 3 - 11 LAB CHEMISTRY METHOD 10/10/2025 2:03 PM [facility] Glucose 77 70 - 100 mg/dL LAB CHEMISTRY METHOD 10/10/2025 2:03 PM EST [facility] BUN 8 5 - 25 mg/dL LAB CHEMISTRY METHOD 10/10/2025 2:03 PM EST [facility] Creatinine 0.61 0.50 - 1.10 mg/dL LAB CHEMISTRY METHOD 10/10/2025 2:03 PM [facility] eGFR 127 >=60 mL/min/1. 73m2 LAB CHEMISTRY METHOD 10/10/2025 2:03 PM EST [facility] Comment:Calculation based on the Chronic Kidney Disease Epidemiology Collaboration (CKD-EPI) equation refit without adjustment for race. BUN/Creatinine Ratio 13.1 LAB CHEMISTRY METHOD 10/10/2025 2:03 PM [facility] Calcium 9.6 8.5 - 10.5 mg/dL LAB CHEMISTRY METHOD 10/10/2025 2:03 PM [facility] Blood Venous blood specimen / Unknown Venipuncture / Unknown 10/10/2025 1:06 PM EST 10/10/2025 1:34 PM EST us Ria Vivas MD LAB BLOOD ORDERABLES Final Resu lt [facility] [address] [place] [address], [place] [phone] * (ABNORMAL) Comprehensive metabolic panel (10/08/2025 8:30 AM EST) Only the most recent of5 resultswithin the time period is included. Sodium 141 133 - 145 mmol/L LAB CHEMISTRY METHOD 10/08/2025 10:48 AM EST [facility] Potassium 3.5 3.5 - 5.5 mmol/L LAB CHEMISTRY METHOD 10/08/2025 10:48 AM [facility] Chloride 107 96 - 110 mmol/L LAB CHEMISTRY METHOD 10/08/2025 10:48 AM [facility] CO2 26 21 - 32 mmol/L LAB CHEMISTRY METHOD 10/08/2025 10:48 AM [facility] Anion Gap 8 3 - 11 LAB CHEMISTRY METHOD 10/08/2025 10:48 AM [facility] Glucose 80 70 - 100 mg/dL LAB CHEMISTRY METHOD 10/08/2025 10:48 AM [facility] BUN 6 5 - 25 mg/dL LAB CHEMISTRY METHOD 10/08/2025 10:48 AM [facility] Creatinine 0.40(L) 0.50 - 1.10 mg/dL LAB CHEMISTRY METHOD 10/08/2025 10:48 AM [facility] eGFR 140 >=60 mL/min/1. 73m2 LAB CHEMISTRY METHOD 10/08/2025 10:48 AM [facility] Comment:Calculation based on the Chronic Kidney Disease Epidemiology Collaboration (CKD-EPI) equation refit without adjustment for race. BUN/Creatinine Ratio 15.0 LAB CHEMISTRY METHOD 10/08/2025 10:48 AM [facility] Calcium 9.0 8.5 - 10.5 mg/dL LAB CHEMISTRY METHOD 10/08/2025 10:48 AM [facility] AST (SGOT) 32 10 - 42 unit/L LAB CHEMISTRY METHOD 10/08/2025 10:48 AM [facility] ALT (SGPT) 38 10 - 60 unit/L LAB CHEMISTRY METHOD 10/08/2025 10:48 AM [facility] Alkaline Phosphatase 41(L) 42 - 121 unit/L LAB CHEMISTRY METHOD 10/08/2025 10:48 AM [facility] Total Protein 6.4 6.0 - 8.0 g/dL LAB CHEMISTRY METHOD 10/08/2025 10:48 AM [facility] Albumin 3.3 3.2 - 5.0 g/dL LAB CHEMISTRY METHOD 10/08/2025 10:48 AM [facility] Total Bilirubin 0.6 0.0 - 1.4 mg/dL LAB CHEMISTRY METHOD 10/08/2025 10:48 AM [facility] Blood Venous blood specimen / Unknown Venipuncture / Unknown 10/08/2025 8:30 AM EST 10/08/2025 9:21 AM EST us Ria Vivas MD LAB BLOOD ORDERABLES Final Resu lt [facility] [address] [place] [address], * (ABNORMAL) CBC auto differential (09/30/2025 6:30 AM EST) Only the most recent of4 resultswithin the time period is included. WBC 3.9(L) 4.8 - 10.8 K/mcL LAB HEMETOLOGY METHOD 09/30/2025 8:24 AM [facility] RBC 4.00 3.80 - 4.80 M/[facility] LAB HEMETOLOGY METHOD 09/30/2025 8:24 AM [facility] [...] LAB HEMETOLOGY METHOD 09/30/2025 8:24 AM EST [facility] Eosinophils Absolute 0.06 0.00 - 0.50 K/mcL LAB HEMETOLOGY METHOD 09/30/2025 8:24 AM EST [facility] Basophils Absolute 0.02 0.00 - 0.20 K/mcL LAB HEMETOLOGY METHOD 09/30/2025 8:24 AM EST [facility] Immature Granulocytes Absolute 0.02 0.00 - 0.03 K/mcL LAB HEMETOLOGY METHOD 09/30/2025 8:24 AM EST [facility] Blood Venous blood specimen / Unknown Venipuncture / Unknown 09/30/2025 6:30 AM EST 09/30/2025 7:42 AM EST Ria Vivas MD LAB BLOOD ORDERABLES Final Resu lt Performing Organization Address City/[facility]/ZIP Co de Phone Number [facility] [address] [place] [address], [place] [phone] * (ABNORMAL) Vitamin D 25 hydroxy (09/30/2025 6:30 AM EST) Vit D, 25-Hydroxy 29.9(L) 30.0 - 80.0 ng/mL LAB CHEMISTRY METHOD 09/30/2025 10:22 AM EST [facility] Blood Venous blood specimen / Unknown Venipuncture / Unknown 09/30/2025 6:30 AM EST 09/30/2025 7:42 AM EST us Ria Vivas MD LAB BLOOD ORDERABLES Final Resu lt [facility] [address] [place] [address], [place] [phone] * Thyroid stimulating hormone (09/30/2025 6:30 AM EST) TSH 2.13 0.40 - 4.00 mcIU/mL LAB CHEMISTRY METHOD 09/30/2025 10:23 AM EST [facility] Blood Venous blood specimen / Unknown Venipuncture / Unknown 09/30/2025 6:30 AM EST 09/30/2025 7:42 AM EST us Ria Vivas MD LAB BLOOD ORDERABLES Final Resu lt Performing Organization Address [facility] Co de Phone Number [facility] [address] [place] [address], [place] [phone] * (ABNORMAL) Folate (09/30/2025 6:30 AM EST) Pathologist [facility] Folate 18.5(H) 2.8 - 17.0 ng/ml LAB CHEMISTRY METHOD 09/30/2025 9:21 AM EST [facility] Blood Venous blood specimen / Unknown Venipuncture / Unknown 09/30/2025 6:30 AM EST 09/30/2025 7:42 AM EST us Ria Vivas MD LAB BLOOD ORDERABLES Final Resu lt Performing Organization Address [facility] Phone Number [facility] [address] [place] [address], [place] [phone] * Vitamin B12 (09/30/2025 6:30 AM EST) Pathologist [facility] Vitamin B-12 554 250 - 900 pcg/mL LAB CHEMISTRY METHOD 09/30/2025 9:21 AM EST [facility] Blood Venous blood specimen / Unknown Venipuncture / Unknown 09/30/2025 6:30 AM EST 09/30/2025 7:42 AM EST us Ria Vivas MD LAB BLOOD ORDERABLES Final Resu lt Performing Organization Address [facility] Co de Phone Number [facility] [address] [place] [address], [place] [phone] * (ABNORMAL) Urinalysis with reflex microscopic (09/30/2025 4:00 AM EST) Specific [place] Urine 1.021 1.003 - 1.030 LAB URINALYSIS - AUTOMATED METHOD 09/30/2025 9:09 AM [facility] pH, Urine 5.0 5.0 - 8.0 pH LAB URINALYSIS - AUTOMATED METHOD 09/30/2025 9:09 AM [facility] Leukocytes, Urine Small(A) Negative LAB URINALYSIS - AUTOMATED METHOD 09/30/2025 9:09 AM [facility] Nitrite, Urine Negative Negative LAB URINALYSIS - AUTOMATED METHOD 09/30/2025 9:09 AM [facility] Protein, Urine 100(A) <=Trace mg/dL LAB URINALYSIS - AUTOMATED METHOD 09/30/2025 9:09 AM [facility] Glucose, Urine Negative Negative mg/dL LAB URINALYSIS - AUTOMATED METHOD 09/30/2025 9:09 AM [facility] Ketones, Urine Negative Negative mg/dL LAB URINALYSIS - AUTOMATED METHOD 09/30/2025 9:09 AM [facility] Urobilinogen , Urine 1.0 0.2 - 1.0 mg/dL LAB URINALYSIS - AUTOMATED METHOD 09/30/2025 9:09 AM [facility] Bilirubin, Urine Negative Negative LAB URINALYSIS - AUTOMATED METHOD 09/30/2025 9:09 AM [facility] Blood, Urine Large(A) Negative LAB URINALYSIS - AUTOMATED METHOD 09/30/2025 9:09 AM [facility] RBC, Urine >100(H) 0 - 4 /HPF 09/30/2025 9:09 AM [facility] WBC, Urine 5(H) 0 - 4 /HPF 09/30/2025 9:09 AM [facility] Squamous Epithelial, Urine 5 0 - 60 /LPF 09/30/2025 9:09 AM EST [facility] Crystals, Urine Heavy Calcium Oxalate crystals. Heavy Amorphous Urate crystals. /LPF 09/30/2025 9:09 AM EST [facility] Bacteria, Urine Few(A) Negative /HPF 09/30/2025 9:09 AM EST [facility] Urine Urine specimen obtained by clean catch procedure / Unknown Non-blood Collection / Unknown 09/30/2025 4:00 AM EST 09/30/2025 8:06 AM EST us Ria Vivas MD LAB URINE ORDERABLES Final Resu lt [facility] [address] [place] [address], [place] [phone] * (ABNORMAL) Culture urine (09/30/2025 4:00 AM EST) Only the most recent of2 resultswithin the time period is included. Culture, Urine >=100,000 CFU/mL Staphylococcus epidermidis(A) CHUY 10/02/2025 10:10 AM EST [facility] Comment: This is an edited [...] ORDE ELLE Final Result Performing Organization Address [facility]/ZIP Co de Phone Number [facility] [address] [place] [address], [place] [phone] * Phosphorus (09/19/2025 6:29 AM EDT) Phosphorus 4.5 2.5 - 4.5 mg/dL LAB CHEMISTRY METHOD 09/19/2025 9:25 AM EDT [facility] Blood Venous blood specimen / Unknown Venipuncture / Unknown 09/19/2025 6:29 AM EDT 09/19/2025 8:39 AM EDT Malia LUNA LAB BLOOD ORDERABLES Final Resul t Performing Organization Address [facility]/ZIP Co de Phone Number [facility] [address] [place] [address], [place] [phone] * Magnesium (09/19/2025 6:29 AM EDT) Only the most recent of2 resultswithin the time period is included. Magnesium 2.1 1.9 - 2.6 mg/dL LAB CHEMISTRY METHOD 09/19/2025 9:25 AM EDT [facility] Blood Venous blood specimen / Unknown Venipuncture / Unknown 09/19/2025 6:29 AM EDT 09/19/2025 8:39 AM EDT Malia LUNA LAB BLOOD ORDERABLES Final Resul t Performing Organization Address [facility]/ZIP Co de Phone Number [facility] [address] [place] [address], [place] [phone] * (ABNORMAL) Manual differential (09/10/2025 6:40 AM EDT) Neutrophils % 32.0 % LAB HEMETOLOGY METHOD 09/10/2025 11:55 AM [facility] Lymphocytes % 61.0 % LAB HEMETOLOGY METHOD 09/10/2025 11:55 AM [facility] Monocytes % 5.0 % LAB HEMETOLOGY METHOD 09/10/2025 11:55 AM [facility] Eosinophils % 1.0 % LAB HEMETOLOGY METHOD 09/10/2025 11:55 AM [facility] Basophils % 1.0 % LAB HEMETOLOGY METHOD 09/10/2025 11:55 AM [facility] Neutrophils Absolute Manual 0.74(L) 1.50 - 7.00 K/mcL LAB HEMETOLOGY METHOD 09/10/2025 11:55 AM [facility] Lymphocytes Absolute 1.40 1.00 - 5.00 K/mcL LAB HEMETOLOGY METHOD 09/10/2025 11:55 AM [facility] Monocytes Absolute Manual 0.12(L) 0.20 - 1.00 K/mcL LAB HEMETOLOGY METHOD 09/10/2025 11:55 AM [facility] Eosinophils Absolute Manual 0.02 0.00 - 0.50 K/mcL LAB HEMETOLOGY METHOD 09/10/2025 11:55 AM [facility] Basophils Absolute Manual 0.02 0.00 - 0.20 K/mcL LAB HEMETOLOGY METHOD 09/10/2025 11:55 AM [facility] Rbc Morphology Consistent with indices Consistent with indices, Normal for LAB HEMETOLOGY METHOD 09/10/2025 11:55 AM [facility] Platelet Morphology - WAM See Note(A) Normal LAB HEMETOLOGY METHOD 09/10/2025 11:55 AM EDT [facility] Comment:PLT: Normal Blood Venous blood specimen / Unknown Venipuncture / Unknown 09/10/2025 6:40 AM EDT 09/10/2025 9:50 AM EDT [facility] BLOOD ORDERABLES Final Resu lt Performing Organization Address [facility] Co de Phone Number [facility] [address] [place] [address], [place] [phone] * Pathology review, blood smear (09/10/2025 6:40 [...] AM EDT 09/10/2025 9:50 AM EDT [facility] LAB BLOOD ORDERABLES Final Resu lt Performing Organization Address City/[facility] Co de Phone Number [facility] [address] [place] [address], [place] [phone] * Gonorrhea/Chlamydia Screening (11/13/2023) Gonorrhea/Chla mydia Screening abstracted us Historical Provider MD HEALTH MAINTENANCE Final Result * Depression Screening (10/06/2023) Depression Screening abstracted us Historical Provider HEALTH MAINTENANCE Final Result * [...] RESULTING AGENCY - 09/12/2022 7:30 AM EDT [id number] THINPREP PAP, IMAGED: NEGATIVE FOR SQUAMOUS INTRAEPITHELIAL [...] to Health Maintenance Insurance [place]ICA[place] - [place] [employer] MEDICAID [employer] MEDICARE Care Teams Traffic Warehouse Supervisor Relationship Specialty Start Date End Date Iraida Woodruff PA [address] [place] [address], [address] [place] [address] PCP - General 08/23/25
== END 2025-10-14 14:12 | disposition home or self-care (01) ==
LOC: HO.HBST 13:19
PROVIDERS: Visit Provider Counselor Mental Health
DX: F41.9 Anxiety disorder, unspecified (principal); Z86.59 Personal history of other mental and behavioral disorders; Z98.84 Bariatric surgery status
CPT/HCPCS: 90834

== ENCOUNTER 2025-11-10 13:27 | Outpatient (AMB) | payer OTHER, SELFPAY ==
--- NOTE | 2025-11-10 13:06 | MHC.OFFVISWM ---
VS Expanded 11/10/25 13:30 Height 5 ft 3 in Weight 252 lb BMI 44.6 Intake Visit Reasons: Phone PO LSG 07/14/25 (per [place] scheduled) Allergies cephalexin (From Keflex) Allergy (Intermediate, Verified 11/03/25 14:00) Redness of Skin doxycycline Allergy (Intermediate, Verified 11/03/25 14:00) Hives Penicillins Allergy (Intermediate, Verified 11/03/25 14:00) Hives, burning sensation Sulfa (Sulfonamide Antibiotics) Allergy (Intermediate, Verified 11/03/25 14:00) Hives,palpatations Vaccines Allergy (Uncoded 11/03/25 14:12) Guillain barre syndrome Medication List - Last Reconciled 11/10/25 by CHERYL Pelaez [3 in 1 commode As directed] albuterol sulfate 90 mcg/actuation 1 inh inhalation QID PRN cholecalciferol (vitamin D3) 50 mcg PO DAILY [CPAP with attachment As directed] famotidine 20 mg PO DAILY folic acid 1 mg PO DAILY 30 days gabapentin 400 mg PO QAM gabapentin 200 mg PO BEDTIME [Hand held shower As directed] levonorgestrel (Mirena) 1 device intrauterine ONCE lisinopril 5 mg PO DAILY mecobalamin (vitamin B12) 500 mcg PO DAILY omeprazole 20 mg PO DAILY ondansetron 4 mg PO Q12H PRN sertraline 50 mg PO DAILY [Shower Wand As directed] sucralfate 10 mL PO BID thiamine mononitrate (vit B1) 100 mg PO DAILY 30 days tizanidine 2 mg PO Q8H PRN [Transfer bench As directed] [Tub bench As directed] HPI Comments Details: This?is a?25?yo F who is s/p LSG 07/14/2025. Presents for 4mo post op visit. Weight loss of 18lb since last OV. Starting weight in our program 370lb in February 2025. No complaints of nausea, emesis, abdominal pain, or constipation. Reflux is overall improved from previous; not constant, but does feel sometimes. She is home now, out of rehab. Using a walker to ambulate. Gets PT at home. Has not been checking BP, taking lisinopril. Present meal plan includes: following with Dr Mary russo- 3 full shakes, Fitcrunch bar can have scrambled egg, vietnamese yogurt not feeling hungry Exercise routine includes: participating in PT/OT a few times a week for each is now able to walk short distances with a walker [facility] Medical History (Updated 11/03/25 @ 16:19 by Bhupendra Lucas MD) Annual physical exam Well woman exam with routine gynecological exam Morbid obesity with BMI of 60.0-69.9, adult Screening for cervical cancer Sleep apnea treated with nocturnal bilevel positive airway pressure (BPAP) Sleep apnea PCOS (polycystic ovarian syndrome) Migraines ADHD (attention deficit hyperactivity disorder) Depression GERD (gastroesophageal reflux disease) Morbid obesity Asthma High blood pressure Surgical History (Updated 11/03/25 @ 16:17 by Bhupendra Lucas MD) S/P gastric sleeve procedure S/P tonsillectomy History of eye surgery Family History Maternal Grandmother Breast cancer Mother Diabetes Other HTN (hypertension) Social History Household Members: None Housing: Apartment Are you a primary foster care social worker to a significant other at home: No Do you presently have visiting nurse or other home services: No Alcohol intake: current Alcohol intake frequency: holidays/special occasions only Patient Tobacco Use Status: Never used Tobacco e-Cigarette/Vaping Use: Never Used Second Hand Smoke Exposure: No service: No Current occupational status: employed Cognitive needs: No Hearing needs: No Vision needs: Yes (Glasses) Female Reproductive History Menstrual Age of Menarche: 11 Telehealth Telehealth Telehealth Platform: Telephone Location of provider rendering services: practice address Location of patient: address on file Patient Identification confirmed using: Name, : Yes Telehealth method: voice only Patient verbally consented to treatment: Yes Patient verbally consented to billing insurance company: Yes Patient informed of any privacy concerns related to visit: Yes Minutes spent on Phone/Video with Pt.: 11 Assessment & Plan Assessment & Plan (1) Morbid obesity: Code(s): E66.01 - Morbid (severe) obesity due to excess calories Category: Medical (2) S/P laparoscopic sleeve gastrectomy: Code(s): Z98.84 - Bariatric surgery status Category: Surgical Plan Recommended going back to daily monitoring of BP and dosing lisinopril based on measurements. Pt can introduce 2 forkfuls of chicken or fish, and 1-2 forkfuls of cooked vegetables. If she does well with this we can discuss via text further options. She will continue to work with PT on regaining strength and mobility. Refilled liquid carafate as pt reports this helped with her reflux. RTC in 2mo for 6 month visit. Medications: Changed From gabapentin 300 mg (3 x 100 mg) PO BEDTIME 2 months 180 caps 0RF RLS MDD 300mg G25.81 - Restless legs syndrome To gabapentin 400 mg PO QAM G25.81 - Restless legs syndrome Benson Turner PA-C Refilled sucralfate 10 mL PO BID 600 mL 2RF CHERYL Pelaez K21.9 - Gastro-esophageal reflux disease without esophagitis
[2025-11-10 13:30] VITALS: BMI 44.6
--- OUTSIDE RECORDS SUMMARY | 2025-11-10 17:34 | XMS_ITS | Encounter Summary ---
Author Organization [facility] Address [address] [place] [address] Phone Care Team Providers Care Combine Operator Name Role Phone Darin Restrepo MD Primary Care Provider + Encounter Details Date Type Department Care Team (Late st Contact Info) Description 01/22/2024 Procedure Pass [facility], Ct Scan - [facility] [address] [place] [address] Social History Tobacco Use Types Packs/Day Years [...] documented as of this encounter Care Teams Combine Operator Relationship Specialty Start Date End Date Darin Restrepo MD [address] [place] [phone] PCP - General Internal Medicine 11/30/21 documented as of this encounter Additional Source Comments The information contained in this document represents components of the legal health record. It is not the complete legal health record.[facility]
--- OUTSIDE RECORDS SUMMARY | 2025-11-10 17:34 | XMS_ITS | Encounter Summary ---
Author Organization [facility] Address [address] [place] [address] Care Team Providers Care Summer Babysitter Name Role Phone Iraida Woodruff Primary Care Provider [phone] Encounter Details Date Type Department Care Team (Late st Contact Info) Description 09/23/2025 Lab Requisition [facility] - Main Lab [address] [facility] [place] [address] Sushma Montana PA [address] [place] [address] Encounter for other general examination Social History [...] EST Office Visit Nephrology - [place] [id number] [place] [address] Christopher Pollard MD [address] [place] [address] documented as of this encounter Procedures Procedure Name Priority Date/Time Associated Diagnosis Comments COMPREHENSIVE METABOLIC PANEL Routine 09/23/2025 7:00 AM EDT Encounter for other general examination documented in this encounter Results * (ABNORMAL) Comprehensive metabolic panel (09/23/2025 7:00 AM EDT) Sodium 138 133 - 145 mmol/L LAB CHEMISTRY METHOD 09/23/2025 11:40 AM [facility] Potassium 3.8 3.5 - 5.5 mmol/L LAB CHEMISTRY METHOD 09/23/2025 11:40 AM [facility] Chloride 108 96 - 110 mmol/L LAB CHEMISTRY METHOD 09/23/2025 11:40 AM [facility] CO2 24 21 - 32 mmol/L LAB CHEMISTRY METHOD 09/23/2025 11:40 AM [facility] Anion Gap 6 3 - 11 LAB CHEMISTRY METHOD 09/23/2025 11:40 AM [facility] Glucose 71 70 - 100 mg/dL LAB CHEMISTRY METHOD 09/23/2025 11:40 AM [facility] BUN 11 5 - 25 mg/dL LAB CHEMISTRY METHOD 09/23/2025 11:40 AM [facility] Creatinine 0.59 0.50 - 1.10 mg/dL LAB CHEMISTRY METHOD 09/23/2025 11:40 AM [facility] eGFR 128 >=60 mL/min/1. 73m2 LAB CHEMISTRY METHOD 09/23/2025 11:40 AM [facility] Comment:Calculation based on the Chronic Kidney Disease Epidemiology Collaboration (CKD-EPI) equation refit without adjustment for race. BUN/Creatinine Ratio 18.6 LAB CHEMISTRY METHOD 09/23/2025 11:40 AM [facility] Calcium 9.2 8.5 - 10.5 mg/dL LAB CHEMISTRY METHOD 09/23/2025 11:40 AM [facility] AST (SGOT) 30 10 - 42 unit/L LAB CHEMISTRY METHOD 09/23/2025 11:40 AM [facility] ALT (SGPT) 52 10 - 60 unit/L LAB CHEMISTRY METHOD 09/23/2025 11:40 AM EDT [facility] Alkaline Phosphatase 41(L) 42 - 121 unit/L LAB CHEMISTRY METHOD 09/23/2025 11:40 AM EDT [facility] Total Protein 6.9 6.0 - 8.0 g/dL LAB CHEMISTRY METHOD 09/23/2025 11:40 AM EDT [facility] Albumin 2.9(L) 3.2 - 5.0 g/dL LAB CHEMISTRY METHOD 09/23/2025 11:40 AM EDT [facility] Total Bilirubin 0.5 0.0 - 1.4 mg/dL LAB CHEMISTRY METHOD 09/23/2025 11:40 AM EDT [facility] Blood Venous blood specimen / Unknown Venipuncture / Unknown 09/23/2025 7:00 AM EDT 09/23/2025 10:45 AM EDT us Sushma LUNA LAB BLOOD ORDERABLES Final Re sult [facility] [address] [place] [address], documented in this encounter Visit Diagnoses Diagnosis Encounter for other general examination documented in this encounter Care Teams Summer Babysitter Relationship Specialty Start Date End Date Iraida Woodruff PA [address] [place] [address], [address] [place] [address] PCP - General 08/23/25 documented as of this encounter
--- OUTSIDE RECORDS SUMMARY | 2025-11-10 17:34 | XMS_ITS | Encounter Summary ---
Author Organization [facility] Address [address] [place] [address] Care Team Providers Care Broaching Machine Repairer Name Role Phone Iraida Woodruff Primary Care Provider [phone] Encounter Details Date Type Department Care Team (Late Contact Info) Description 09/30/2025 Lab Requisition [facility] - Main Lab [address] [facility] [place] [address] Ria Vivas MD [address] [place] [address] Urinary tract infection, site not specified Social [...] 2:00 PM EST Office Visit Nephrology - [place] [address] [place] [address] Christopher Pollard MD [address] [facility] [address] [place] [address] documented as of this encounter [...] reflex microscopic (09/30/2025 4:00 AM EST) Specific [place] Urine 1.021 1.003 - 1.030 LAB URINALYSIS - AUTOMATED METHOD 09/30/2025 9:09 AM [facility] pH, Urine 5.0 5.0 - 8.0 pH LAB URINALYSIS - AUTOMATED METHOD 09/30/2025 9:09 AM [facility] Leukocytes, Urine Small(A) Negative LAB URINALYSIS - AUTOMATED METHOD 09/30/2025 9:09 AM [facility] Nitrite, Urine Negative Negative LAB URINALYSIS - AUTOMATED METHOD 09/30/2025 9:09 AM [facility] Protein, Urine 100(A) <=Trace mg/dL LAB URINALYSIS - AUTOMATED METHOD 09/30/2025 9:09 AM [facility] Glucose, Urine Negative Negative mg/dL LAB URINALYSIS - AUTOMATED METHOD 09/30/2025 9:09 AM [facility] Ketones, Urine Negative Negative mg/dL LAB URINALYSIS - AUTOMATED METHOD 09/30/2025 9:09 AM [facility] Urobilinogen , Urine 1.0 0.2 - 1.0 mg/dL LAB URINALYSIS - AUTOMATED METHOD 09/30/2025 9:09 AM [facility] Bilirubin, Urine Negative Negative LAB URINALYSIS - AUTOMATED METHOD 09/30/2025 9:09 AM [facility] Blood, Urine Large(A) Negative LAB URINALYSIS - AUTOMATED METHOD 09/30/2025 9:09 AM [facility] RBC, Urine >100(H) 0 - 4 /HPF 09/30/2025 9:09 AM [facility] WBC, Urine 5(H) 0 - 4 /HPF 09/30/2025 9:09 AM [facility] Squamous Epithelial, Urine 5 0 - 60 /LPF 09/30/2025 9:09 AM [facility] Crystals, Urine Heavy Calcium Oxalate crystals. Heavy Amorphous Urate crystals. /LPF 09/30/2025 9:09 AM [facility] Bacteria, Urine Few(A) Negative /HPF 09/30/2025 9:09 AM [facility] Urine Urine specimen obtained by clean catch procedure / Unknown Non-blood Collection / Unknown 09/30/2025 4:00 AM EST 09/30/2025 8:06 AM EST us Ria Vivas MD LAB URINE ORDERABLES Final Resu lt [facility] [address] [place] [address], * (ABNORMAL) Culture urine (09/30/2025 4:00 AM EST) Culture, Urine >=100,000 CFU/mL Staphylococcus epidermidis(A) CHUY 10/02/2025 10:10 AM [facility] Comment: This is an edited [...] MICROBIOLOGY - GENERAL TREY ALMEIDA Final Result [facility] [address] [place] [address], documented in this encounter Visit Diagnoses Diagnosis Urinary tract infection, site not specified documented in this encounter Care Teams Broaching Machine Repairer Relationship Specialty Start Date End Date Iraida Woodruff PA [address] [place] [address], [address] [place] [address] PCP - General 08/23/25 documented as of this encounter
--- OUTSIDE RECORDS SUMMARY | 2025-11-10 17:34 | XMS_ITS | Encounter Summary ---
Author Organization [facility] Address [address] [place] [address] Care Team Providers Care Credit Card Interviewer Name Role Phone Iraida Woodruff Primary Care Provider [phone] Encounter Details Date Type Department Care Team (Late st Contact Info) Description 08/22/2025 Lab Requisition [facility] - Main Lab [address] [facility] [place] [address] Lasha Moctezuma PA [address] [place] [address] Urinary tract infection, site not specified Social [...] 2:00 PM EST Office Visit Nephrology - [place] [address] [place] [address] Christopher Pollard MD [address] [place] [phone] documented as of this encounter Procedures Procedure Name Priority Date/Time Associated Diagnosis Comments CULTURE URINE Routine 08/22/2025 12:00 AM EDT Urinary tract infection, site not specified documented in this encounter Results * Culture urine (08/22/2025 12:00 AM EDT) Culture, Urine 50,000-99,000 CFU/mL Mixed urogenital joel, no uropathogens present. Suggest repeat specimen if clinically indicated. 08/23/2025 1:26 PM EDT [facility] Urine Urine specimen obtained by clean catch procedure / Unknown 08/22/2025 08/22/2025 6:35 PM EDT Lasha LUNA LAB MICROBIOLOGY - GENERAL TREY ALMEIDA Final Result [facility] [address] [place] [address], documented in this encounter Visit Diagnoses Diagnosis Urinary tract infection, site not specified documented in this encounter Care Teams Credit Card Interviewer Relationship Specialty Start Date End Date Iraida Woodruff PA [address] [place] [address], [address] [place] [address] PCP - General 08/23/25 documented as of this encounter
--- OUTSIDE RECORDS SUMMARY | 2025-11-10 17:34 | XMS_ITS | Encounter Summary ---
Author Organization [facility] Address [address] [place] [address] Care Team Providers Care Card Maker Name Role Phone Iraida Woodruff Primary Care Provider [phone] Encounter Details Date Type Department Care Team (Late st Contact Info) Description 10/08/2025 Lab Requisition [facility] - Main Lab [address] [facility] [place] [address] Ria Vivas MD [address] [place] [address] Nutritional deficiency, unspecified Social History Tobacco Use [...] 2:00 PM EST Office Visit Nephrology - [place] [address] [place] [address] Christopher Pollard MD [address] [place] [address] documented as of this encounter Procedures Procedure Name Priority Date/Time Associated Diagnosis Comments COMPLETE BLOOD COUNT Routine 10/08/2025 8:30 AM EST Nutritional deficiency, unspecified COMPREHENSIVE METABOLIC PANEL Routine 10/08/2025 8:30 AM EST Nutritional deficiency, unspecified documented in this encounter Results * (ABNORMAL) Comprehensive metabolic panel (10/08/2025 8:30 AM EST) Sodium 141 133 - 145 mmol/L LAB CHEMISTRY METHOD 10/08/2025 10:48 AM [facility] Potassium 3.5 3.5 - 5.5 mmol/L LAB CHEMISTRY METHOD 10/08/2025 10:48 AM [facility] Chloride 107 96 - 110 mmol/L LAB CHEMISTRY METHOD 10/08/2025 10:48 AM [facility] CO2 26 21 - 32 mmol/L LAB CHEMISTRY METHOD 10/08/2025 10:48 AM [facility] Anion Gap 8 3 - 11 LAB CHEMISTRY METHOD 10/08/2025 10:48 AM [facility] Glucose 80 70 - 100 mg/dL LAB CHEMISTRY METHOD 10/08/2025 10:48 AM [facility] BUN 6 5 - 25 mg/dL LAB CHEMISTRY METHOD 10/08/2025 10:48 AM [facility] Creatinine 0.40(L) 0.50 - 1.10 mg/dL LAB CHEMISTRY METHOD 10/08/2025 10:48 AM [facility] eGFR 140 >=60 mL/min/1. 73m2 LAB CHEMISTRY METHOD 10/08/2025 10:48 AM [facility] Comment:Calculation based on the Chronic Kidney Disease Epidemiology Collaboration (CKD-EPI) equation refit without adjustment for race. BUN/Creatinine Ratio 15.0 LAB CHEMISTRY METHOD 10/08/2025 10:48 AM [facility] Calcium 9.0 8.5 - 10.5 mg/dL LAB CHEMISTRY METHOD 10/08/2025 10:48 AM [facility] AST (SGOT) 32 10 - 42 unit/L LAB CHEMISTRY METHOD 10/08/2025 10:48 AM [facility] ALT (SGPT) 38 10 - 60 unit/L LAB CHEMISTRY METHOD 10/08/2025 10:48 AM [facility] Alkaline Phosphatase 41(L) 42 - 121 unit/L LAB CHEMISTRY METHOD 10/08/2025 10:48 AM [facility] Total Protein 6.4 6.0 - 8.0 g/dL LAB CHEMISTRY METHOD 10/08/2025 10:48 AM [facility] Albumin 3.3 3.2 - 5.0 g/dL LAB CHEMISTRY METHOD 10/08/2025 10:48 AM [facility] Total Bilirubin 0.6 0.0 - 1.4 mg/dL LAB CHEMISTRY METHOD 10/08/2025 10:48 AM [facility] Blood Venous blood specimen / Unknown Venipuncture / Unknown 10/08/2025 8:30 AM EST 10/08/2025 9:21 AM EST us Ria Vivas MD LAB BLOOD ORDERABLES Final Resu lt [facility] [address] [place] [address], * (ABNORMAL) Complete blood count (10/08/2025 8:30 AM EST) WBC 4.8 4.8 - 10.8 K/mcL LAB HEMETOLOGY METHOD 10/08/2025 10:15 AM [facility] RBC 4.10 3.80 - 4.80 M/mcL LAB HEMETOLOGY METHOD 10/08/2025 10:15 AM [facility] Hemoglobin 11.8 11.5 - 16.0 g/dL LAB HEMETOLOGY METHOD 10/08/2025 10:15 AM [facility] Hematocrit 36.5 35.0 - 47.0 % LAB HEMETOLOGY METHOD 10/08/2025 10:[address] [facility] MCV 89.9 79.0 - 98.0 FL LAB HEMETOLOGY METHOD 10/08/2025 10:[address] [facility] MCH 29.1 27.0 - 32.0 pcg LAB HEMETOLOGY METHOD 10/08/2025 10:[address] [facility] MCHC 32.3 32.0 - 37.0 g/dL LAB HEMETOLOGY METHOD 10/08/2025 10:[address] [facility] RDW 15.6(H) 11.0 - 15.0 % LAB HEMETOLOGY METHOD 10/08/2025 10:[address] [facility] Platelets 199 130 - 400 K/mcL LAB HEMETOLOGY METHOD 10/08/2025 10:[address] [facility] MPV 10.7 7.0 - 11.0 FL LAB HEMETOLOGY METHOD 10/08/2025 10:[address] [facility] NRBC 0.0 <1.0 % LAB HEMETOLOGY METHOD 10/08/2025 10:[address] [facility] NRBC Absolute 0.00 <0.10 K/mcL LAB HEMETOLOGY METHOD 10/08/2025 10:15 AM [facility] Blood Venous blood specimen / Unknown Venipuncture / Unknown 10/08/2025 8:30 AM EST 10/08/2025 9:21 AM EST us Ria Vivas MD LAB BLOOD ORDERABLES Final Resu lt [facility] [address] [place] [address], documented in this encounter Visit Diagnoses Diagnosis Nutritional deficiency, unspecified documented in this encounter Care Teams Card Maker Relationship Specialty Start Date End Date Iraida Woodruff PA [address] [facility], [address] [place] [address] PCP - General 08/23/25 documented as of this encounter
--- OUTSIDE RECORDS SUMMARY | 2025-11-10 17:34 | XMS_ITS | Encounter Summary ---
Author Organization [facility] Address [address] [place] [address] Phone Care Team Providers Care Jewel Bearing Broacher Name Role Phone Darin Restrepo MD Primary Care Provider + Encounter Details Date Type Department Care Team (Late st Contact Info) Description 01/22/2024 Procedure Pass [facility], Ct Scan - [facility] [address] [place] [address] Social History Tobacco Use Types Packs/Day Years [...] documented as of this encounter Care Teams Jewel Bearing Broacher Relationship Specialty Start Date End Date Darin Restrepo MD [address] [place] [phone] PCP - General Internal Medicine 11/30/21 documented as of this encounter Additional Source Comments The information contained in this document represents components of the legal health record. It is not the complete legal health record.[facility]
--- OUTSIDE RECORDS SUMMARY | 2025-11-10 17:34 | XMS_ITS | Encounter Summary ---
Author Organization [facility] Address [address] [place] [address] Phone Care Team Providers Care Seasonal Greenery Bundler Name Role Phone Darin Restrepo MD Primary Care Provider + Encounter Details Date Type Department Care Team (Late st Contact Info) Description 10/10/2022 Procedure Pass [facility], Ct Scan - [address] [address] Social History Tobacco Use Types Packs/Day Years [...] documented as of this encounter Care Teams Seasonal Greenery Bundler Relationship Specialty Start Date End Date Darin Restrepo MD [address] [place] [phone] PCP - General Internal Medicine 11/30/21 documented as of this encounter Additional Source Comments The information contained in this document represents components of the legal health record. It is not the complete legal health record.[facility]
--- OUTSIDE RECORDS SUMMARY | 2025-11-10 17:34 | XMS_ITS | Encounter Summary ---
Author Organization [facility] Address [address] [place] [address] Care Team Providers Care Injection Mold Tooling Technician Name Role Phone Iraida Woodruff Primary Care Provider [phone] Encounter Details Date Type Department Care Team (Late st Contact Info) Description 09/19/2025 Lab Requisition [facility] - Main Lab [address] [facility] [place] [address] Malia Gardner PA [address] [place] [address] Encounter for other general examination [...] 2:00 PM EST Office Visit Nephrology - [place] [address] [place] [address] Christopher Pollard MD [address] [place] [address] documented as of this encounter [...] LAB HEMETOLOGY METHOD 09/19/2025 9:07 AM EDT [facility] Eosinophils Absolute 0.08 0.00 - 0.50 [facility] LAB HEMETOLOGY METHOD 09/19/2025 9:07 AM EDT [facility] Basophils Absolute 0.03 0.00 - 0.20 [facility] LAB HEMETOLOGY METHOD 09/19/2025 9:07 AM EDT [facility] Immature Granulocytes Absolute 0.02 0.00 - 0.03 [facility] LAB HEMETOLOGY METHOD 09/19/2025 9:07 AM EDT [facility] Blood Venous blood specimen / Unknown Venipuncture / Unknown 09/19/2025 6:29 AM EDT 09/19/2025 8:39 AM EDT us Malia LUNA LAB BLOOD ORDERABLES Final Resul t Performing Organization Address City/[facility]/ZIP Co de Phone Number [facility] [address] [place] [address], [place] [phone] * Magnesium (09/19/2025 6:29 AM EDT) Magnesium 2.1 1.9 - 2.6 mg/dL LAB CHEMISTRY METHOD 09/19/2025 9:25 AM EDT [facility] Blood Venous blood specimen / Unknown Venipuncture / Unknown 09/19/2025 6:29 AM EDT 09/19/2025 8:39 AM EDT us Malia LUNA LAB BLOOD ORDERABLES Final Resul t [facility] [address] [place] [address], [place] [phone] * Basic metabolic panel (09/19/2025 6:29 AM [...] LUNA LAB BLOOD ORDERABLES Final Resul t [facility] [address] [place] [address], * Phosphorus (09/19/2025 6:29 AM EDT) Phosphorus 4.5 2.5 - 4.5 mg/dL LAB CHEMISTRY METHOD 09/19/2025 9:25 AM EDT [facility] Blood Venous blood specimen / Unknown Venipuncture / Unknown 09/19/2025 6:29 AM EDT 09/19/2025 8:39 AM EDT us Malia LUNA LAB BLOOD ORDERABLES Final Resul t [facility] [address] [place] [address], documented in this encounter Visit Diagnoses Diagnosis Encounter for other general examination documented in this encounter Care Teams Injection Mold Tooling Technician Relationship Specialty Start Date End Date Iraida Woodruff PA [address] [place] [address], [address] [place] [address] PCP - General 08/23/25 documented as of this encounter
--- OUTSIDE RECORDS SUMMARY | 2025-11-10 17:34 | XMS_ITS | Encounter Summary ---
Author Organization [facility] Address [address] [place] [address] Care Team Providers Care Timers Inspector Name Role Phone Iraida Woodruff Primary Care Provider [phone] Encounter Details Date Type Department Care Team (Late st Contact Info) Description 10/10/[address] 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) BASIC METABOLIC PANEL Routine 10/10/2025 1:06 PM EST 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) documented in this encounter Results * Basic metabolic panel (10/10/2025 1:06 PM EST) Sodium 140 133 - 145 mmol/L LAB CHEMISTRY METHOD 10/10/2025 2:03 PM [facility] Potassium 3.5 3.5 - 5.5 mmol/L LAB CHEMISTRY METHOD 10/10/2025 2:03 PM [facility] Chloride 107 96 - 110 mmol/L LAB CHEMISTRY METHOD 10/10/2025 2:03 PM [facility] CO2 22 21 - 32 mmol/L LAB CHEMISTRY METHOD 10/10/2025 2:03 PM [facility] Anion Gap 11 3 - 11 LAB CHEMISTRY METHOD 10/10/2025 2:03 PM [facility] Glucose 77 70 - 100 mg/dL LAB CHEMISTRY METHOD 10/10/2025 2:03 PM [facility] BUN 8 5 - 25 mg/dL LAB CHEMISTRY METHOD 10/10/2025 2:03 PM [facility] Creatinine 0.61 0.50 - 1.10 mg/dL LAB CHEMISTRY METHOD 10/10/2025 2:03 PM [facility] eGFR 127 >=60 mL/min/1. 73m2 LAB CHEMISTRY METHOD 10/10/2025 2:03 PM [facility] Comment:Calculation based on the Chronic Kidney Disease Epidemiology Collaboration (CKD-EPI) equation refit without adjustment for race. BUN/Creatinine Ratio 13.1 LAB CHEMISTRY METHOD 10/10/2025 2:03 PM [facility] Calcium 9.6 8.5 - 10.5 mg/dL LAB CHEMISTRY METHOD 10/10/2025 2:03 PM [facility] Blood Venous blood specimen / Unknown Venipuncture / Unknown 10/10/2025 1:06 PM EST 10/10/2025 1:34 PM EST us Ria Vivas MD LAB BLOOD ORDERABLES Final Resu lt [facility] [address] [place] [address], [place] [phone] * (ABNORMAL) Complete blood count (10/10/2025 1:06 PM EST) [facility] WBC 8.1 4.8 - 10.8 K/mcL LAB HEMETOLOGY METHOD 10/10/2025 1:40 PM EST [facility] RBC 4.50 3.80 - 4.80 M/mcL LAB HEMETOLOGY METHOD 10/10/2025 1:40 PM EST [facility] Hemoglobin 13.2 11.5 - 16.0 g/dL LAB HEMETOLOGY METHOD 10/10/2025 1:40 PM EST [facility] Hematocrit 39.7 35.0 - 47.0 % LAB HEMETOLOGY METHOD 10/10/2025 1:40 PM EST [facility] MCV 88.4 79.0 - 98.0 FL LAB HEMETOLOGY METHOD 10/10/2025 1:40 PM EST [facility] MCH 29.4 27.0 - 32.0 pcg LAB HEMETOLOGY METHOD 10/10/2025 1:40 PM EST [facility] MCHC 33.2 32.0 - 37.0 g/dL LAB HEMETOLOGY METHOD 10/10/2025 1:40 PM EST [facility] RDW 15.4(H) 11.0 - 15.0 % LAB HEMETOLOGY METHOD 10/10/2025 1:40 PM [facility] Platelets 270 130 - 400 K/mcL LAB HEMETOLOGY METHOD 10/10/2025 1:40 PM EST [facility] MPV 10.6 7.0 - 11.0 FL LAB HEMETOLOGY METHOD 10/10/2025 1:40 PM EST [facility] NRBC 0.0 <1.0 % LAB HEMETOLOGY METHOD 10/10/2025 1:40 PM EST [facility] NRBC Absolute 0.00 <0.10 K/mcL LAB HEMETOLOGY METHOD 10/10/2025 1:40 PM EST [facility] Blood Venous blood specimen / Unknown Venipuncture / Unknown 10/10/2025 1:06 PM EST 10/10/2025 1:34 PM EST us Ria Vivas MD LAB BLOOD ORDERABLES Final Resu lt [facility] [address] [place] [address], documented in this encounter Visit Diagnoses Diagnosis 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
--- OUTSIDE RECORDS SUMMARY | 2025-11-10 17:34 | XMS_ITS | Patient Health Record ---
Author Organization [facility] Address [address] [facility] [address] [place] [address] Support Name Relationship Address Phone Nena Zafar Guarantor Unknown [phone] Allergies Allergen (clinical drug ingredient) Drug/Non Drug [...] Status Risk Notes Problem Morbid obesity (disorder) (615519550) Morbid (severe) obesity due to excess calories (E66.01) Active confirmed Problem Generalized anxiety disorder (70657615) Generalized anxiety disorder (F41.1) Active confirmed Problem Migraine with aura (3315664) Migraine with aura, not intractable, without status migrainosus (G43.109) Active confirmed Problem Obstructive sleep apnea syndrome (disorder) (16788205) Obstructive sleep apnea (adult) (pediatric) (G47.33) Active confirmed Problem Essential hypertension (46753390) Essential (primary) hypertension (I10) Active confirmed Problem Mild intermittent asthma (489253747) Mild intermittent asthma, uncomplicated (J45.20) Active confirmed Problem Gastro-esophageal reflux disease without esophagitis (149521758) Gastro-esophageal reflux disease without esophagitis (K21.9) Active confirmed Problem Attention deficit hyperactivity disorder, predominantly inattentive type (disorder) (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) Attention and concentration deficit (R41.840) Active confirmed Plan Of Treatment No Information Insurance Providers Payer Name Payer Address Payer Phone Subscriber Number Group Number Insured Name Patient Relationship to Insured Coverage Start Date Coverage End Date [facility] [address] [place] [address] [id number] Nena Ballard Self - patient is the insured Medical (General) History Medical History History ICD Code Generalized anxiety disorder/major depre ssive disorder, sees psychiatry ADD GERD Mild intermittent asthma Migraine headaches with aura Hypertension AIDAN cannot tolerate CPAP Surgical History Surgery Date(Month/Year) strabismus surgery
--- OUTSIDE RECORDS SUMMARY | 2025-11-10 17:34 | XMS_ITS | Encounter Summary ---
Author Organization [facility] Address [address] [place] [address] Care Team Providers Care Perfusionist Name Role Phone Iraida Woodruff Primary Care Provider [phone] Encounter Details Date Type Department Care Team (Late st Contact Info) Description 09/10/2025 Lab Requisition [facility] - Main Lab [address] [facility] [place] [address] Isabella Wright PA [address] [place] [address] Encounter for other general examination Social History [...] 2:00 PM EST Office Visit Nephrology - [place] [address] [place] [address] Christopher Pollard MD [address] [place] [address] documented as of this encounter [...] smear (09/10/2025 6:40 AM EDT) Pathologist [facility] Pathologist Review Blood Smear Leukopenia including absolute neutropenia: smear not diagnostic of etiology. Rare reactive-appea ring lymphocytes are noted. Occasional giant platelets are noted; no significant platelet clumps are identified. 09/12/2025 9:27 AM EDT [facility] Blood Venous blood specimen / Unknown Venipuncture / Unknown 09/10/2025 6:40 AM EDT 09/10/2025 9:50 AM EDT Isabella LUNA LAB BLOOD ORDERABLES Final Resu lt [facility] [address] [place] [address], [place] [phone] * (ABNORMAL) Manual differential (09/10/2025 6:40 AM EDT) Neutrophils % 32.0 % LAB HEMETOLOGY METHOD 09/10/2025 11:55 AM EDT [facility] Lymphocytes % 61.0 % LAB HEMETOLOGY METHOD 09/10/2025 11:55 AM [facility] Monocytes % 5.0 % LAB HEMETOLOGY METHOD 09/10/2025 11:55 AM [facility] Eosinophils % 1.0 % LAB HEMETOLOGY METHOD 09/10/2025 11:55 AM [facility] Basophils % 1.0 % LAB HEMETOLOGY METHOD 09/10/2025 11:55 AM [facility] Neutrophils Absolute Manual 0.74(L) 1.50 - 7.00 K/mcL LAB HEMETOLOGY METHOD 09/10/2025 11:55 AM [facility] Lymphocytes Absolute 1.40 1.00 - 5.00 K/mcL LAB HEMETOLOGY METHOD 09/10/2025 11:55 AM [facility] Monocytes Absolute Manual 0.12(L) 0.20 - 1.00 K/mcL LAB HEMETOLOGY METHOD 09/10/2025 11:55 AM [facility] Eosinophils Absolute Manual 0.02 0.00 - 0.50 K/mcL LAB HEMETOLOGY METHOD 09/10/2025 11:55 AM [facility] Basophils Absolute Manual 0.02 0.00 - 0.20 K/mcL LAB HEMETOLOGY METHOD 09/10/2025 11:55 AM [facility] Rbc Morphology Consistent with indices Consistent with indices, Normal for LAB HEMETOLOGY METHOD 09/10/2025 11:55 AM [facility] Platelet Morphology - WAM See Note(A) Normal LAB HEMETOLOGY METHOD 09/10/2025 11:55 AM [facility] Comment:PLT: Normal Blood Venous blood specimen / Unknown Venipuncture / Unknown 09/10/2025 6:40 AM EDT 09/10/2025 9:50 AM EDT us Isabella LUNA LAB BLOOD ORDERABLES Final Resu lt [facility] [address] [place] [address], * (ABNORMAL) CBC auto differential (09/10/2025 6:40 AM EDT) [facility] WBC 2.3(L) 4.8 - 10.8 K/mcL LAB HEMETOLOGY METHOD 09/10/2025 11:55 AM EDT [facility] RBC 4.50 3.80 - 4.80 M/mcL LAB HEMETOLOGY METHOD 09/10/2025 11:55 AM EDT [facility] Hemoglobin 12.4 11.5 - 16.0 g/dL LAB HEMETOLOGY METHOD 09/10/2025 11:55 AM EDT [facility] Hematocrit 38.2 35.0 - 47.0 % LAB HEMETOLOGY METHOD 09/10/2025 11:55 AM EDT [facility] MCV 84.5 79.0 - 98.0 FL LAB HEMETOLOGY METHOD 09/10/2025 11:55 AM EDT [facility] MCH 27.4 27.0 - 32.0 pcg LAB HEMETOLOGY METHOD 09/10/2025 11:55 AM EDT [facility] MCHC 32.5 32.0 - 37.0 g/dL LAB HEMETOLOGY METHOD 09/10/2025 11:55 AM EDT [facility] RDW 16.1(H) 11.0 - 15.0 % LAB HEMETOLOGY METHOD 09/10/2025 11:55 AM EDT [facility] Platelets 177 130 - 400 K/mcL LAB HEMETOLOGY METHOD 09/10/2025 11:55 AM EDT [facility] MPV 12.0(H) 7.0 - 11.0 FL LAB HEMETOLOGY METHOD 09/10/2025 11:55 AM EDT [facility] NRBC 0.0 <1.0 % LAB HEMETOLOGY METHOD 09/10/2025 11:55 AM EDT [facility] NRBC Absolute 0.00 <0.10 K/mcL LAB HEMETOLOGY METHOD 09/10/2025 11:55 AM EDT [facility] Blood Venous blood specimen / Unknown Venipuncture / Unknown 09/10/2025 6:40 AM EDT 09/10/2025 9:50 AM EDT Isabella LUNA LAB BLOOD ORDERABLES Final Resu lt [facility] [address] [place] [address], [place] [phone] * Magnesium (09/10/2025 6:40 AM EDT) Magnesium 2.0 1.9 - 2.6 mg/dL LAB CHEMISTRY METHOD 09/10/2025 11:33 AM EDT [facility] Blood Venous blood specimen / Unknown Venipuncture / Unknown 09/10/2025 6:40 AM EDT 09/10/2025 9:50 AM EDT Isabella LUNA LAB BLOOD ORDERABLES Final Resu lt [facility] [address] [place] [address], [place] [phone] * (ABNORMAL) Comprehensive metabolic panel (09/10/2025 6:40 AM EDT) Sodium 137 133 - 145 mmol/L LAB CHEMISTRY METHOD 09/10/2025 11:33 AM EDT [facility] Potassium 4.0 3.5 - 5.5 mmol/L LAB CHEMISTRY METHOD 09/10/2025 11:33 AM EDT [facility] Chloride 103 96 - 110 mmol/L LAB CHEMISTRY METHOD 09/10/2025 11:33 AM [facility] CO2 26 21 - 32 mmol/L LAB CHEMISTRY METHOD 09/10/2025 11:33 AM [facility] Anion Gap 8 3 - 11 LAB CHEMISTRY METHOD 09/10/2025 11:33 AM [facility] Glucose 62(L) 70 - 100 mg/dL LAB CHEMISTRY METHOD 09/10/2025 11:33 AM [facility] BUN 7 5 - 25 mg/dL LAB CHEMISTRY METHOD 09/10/2025 11:33 AM [facility] Creatinine 0.55 0.50 - 1.10 mg/dL LAB CHEMISTRY METHOD 09/10/2025 11:33 AM [facility] eGFR 130 >=60 mL/min/1. 73m2 LAB CHEMISTRY METHOD 09/10/2025 11:33 AM [facility] Comment:Calculation based on the Chronic Kidney Disease Epidemiology Collaboration (CKD-EPI) equation refit without adjustment for race. BUN/Creatinine Ratio 12.7 LAB CHEMISTRY METHOD 09/10/2025 11:33 AM [facility] Calcium 8.8 8.5 - 10.5 mg/dL LAB CHEMISTRY METHOD 09/10/2025 11:33 AM [facility] AST (SGOT) 56(H) 10 - 42 unit/L LAB CHEMISTRY METHOD 09/10/2025 11:33 AM [facility] ALT (SGPT) 70(H) 10 - 60 unit/L LAB CHEMISTRY METHOD 09/10/2025 11:33 AM [facility] Alkaline Phosphatase 49 42 - 121 unit/L LAB CHEMISTRY METHOD 09/10/2025 11:33 AM [facility] Total Protein 8.0 6.0 - 8.0 g/dL LAB CHEMISTRY METHOD 09/10/2025 11:33 AM [facility] Albumin 2.8(L) 3.2 - 5.0 g/dL LAB CHEMISTRY METHOD 09/10/2025 11:33 AM EDT [facility] Total Bilirubin 0.5 0.0 - 1.4 mg/dL LAB CHEMISTRY METHOD 09/10/2025 11:33 AM EDT [facility] Blood Venous blood specimen / Unknown Venipuncture / Unknown 09/10/2025 6:40 AM EDT 09/10/2025 9:50 AM EDT us Isabella LUNA LAB BLOOD ORDERABLES Final Resu lt [facility] [address] [place] [address], documented in this encounter Visit Diagnoses Diagnosis Encounter for other general examination documented in this encounter Care Teams Perfusionist Relationship Specialty Start Date End Date Iraida Woodruff PA [address] [place] [address], [address] [place] [address] PCP - General 08/23/25 documented as of this encounter
--- OUTSIDE RECORDS SUMMARY | 2025-11-10 17:34 | XMS_ITS | Encounter Summary ---
Author Organization [facility] Address [address] [facility] [address] [place] [address] Phone Care Team Providers Care Spinner Box Name Role Phone Arpita White MD Primary Care Provider Martina Hunter MD Primary Care Provider [phone] Darin Restrepo MD Primary Care Provider + Encounter Details Date Type Department Care Team (Latest Contact Info) Description 10/24/2017 Transcribe Orders [facility] [address] [place] [address] Cameron Jones MD [address] [place] [address] Hirsutism (Primary Dx); Oligomenorrhea, unspecified [...] (10/24/2017 8:29 AM EST) HDL 51 mg/dL [facility] Comment: Interpretation: Risk Level Females Decreased >55mg/dL Average 50-55 mg/dL Increased <50 mg/dL CHOLESTEROL 141 0 - 240 mg/dL [facility] Comment: Pediatric Reference Ranges for 2 to 18 years Acceptable: Less than 170 mg/dL Borderline: 170 - 199 mg/dL High: Greater than or equal to 200 mg/dL TRIGLYCERIDES 73 30 - 160 mg/dL [facility] LDL 75 50 - 129 mg/dL [facility] Comment: LDL levels in terms of risk for coronary heart disease: <100 mg/dL: Optimal 100-129 mg/dL: Near or above optimal 130-159 mg/dL: Borderline high 160-189 mg/dL: High >190 mg/dL: Very High CARDIAC RISK RATIO 2.8(L) 3.3 - 4.4 [facility] Blood 10/24/2017 8:29 AM EST 10/24/2017 8:33 AM EST Cameron Jones MD LAB BLOOD BKR ORDERABLE S Final Result Performing Organization Address City/State/[facility] Co de Phone Number [address] [address] documented in this encounter Visit Diagnoses Diagnosis Hirsutism- Primary Oligomenorrhea, unspecified type documented in this encounter Additional Health Concerns Infection Onset Date Last Indicated Resolved Time CoV-Risk 02/16/2023 02/16/2023 02/27/2023 1:22 AM EDT CoV-Risk 01/21/2024 01/21/2024 02/01/2024 1:22 AM EST documented as of this encounter Care Teams Spinner Box Relationship Specialty Start Date End Date Arpita White MD [address] [place] [address] PCP - General Pediatrics 10/24/17 11/22/19 Martina Torres MD [address] [place] [address] PCP - General Internal Medicine 11/23/19 11/29/21 Darin Restrepo MD [address] [place] [phone] PCP - General Internal Medicine 11/30/21 documented as of this encounter Additional Source Comments The information contained in this document represents components of the legal health record. It is not the complete legal health record.[facility]
--- OUTSIDE RECORDS SUMMARY | 2025-11-10 17:34 | XMS_ITS | Encounter Summary ---
Author Organization [facility] Address [address] [place] [address] Care Team Providers Care Academic Program Specialist Name Role Phone Iraida Woodruff Primary Care Provider [phone] Encounter Details Date Type Department Care Team (Late Contact Info) Description 09/13/2025 Lab Requisition [facility] - Main Lab [address] [facility] [place] [address] Ria Vivas MD [address] [place] [address] Other tank terminal gauger (current) drug therapy Social History Tobacco Use [...] 2:00 PM EST Office Visit Nephrology - [place] [address] [place] [address] Christopher Pollard MD [address] [place] [address] documented as of this encounter Procedures Procedure Name Priority Date/Time Associated Diagnosis Comments CBC WITH AUTO DIFFERENTIAL Routine 09/13/2025 6:38 AM EDT Other jail (current) drug therapy CBC AND DIFFERENTIAL Routine 09/13/2025 6:38 AM EDT Other tank terminal gauger (current) drug therapy COMPREHENSIVE METABOLIC PANEL Routine 09/13/2025 6:38 AM EDT Other tank terminal gauger (current) drug therapy documented in this encounter [...] K/mcL LAB HEMETOLOGY [facility] Basophils Absolute 0.03 0.00 [...] MD LAB BLOOD ORDERABLES Final Resu lt [facility] [address] [place] [address], [place] [phone] * (ABNORMAL) Comprehensive metabolic panel (09/13/2025 6:38 [...] MD LAB BLOOD ORDERABLES Final Resu lt [facility] [address] [place] [address], documented in this encounter Visit Diagnoses Diagnosis Other jail (current) drug therapy documented in this encounter Care Teams Academic Program Specialist Relationship Specialty Start Date End Date Iraida Woodruff PA [address] [place] [address], [address] [place] [address] PCP - General 08/23/25 documented as of this encounter
--- OUTSIDE RECORDS SUMMARY | 2025-11-10 17:34 | XMS_ITS | Encounter Summary ---
Author Organization [facility] Address [address] [place] [address] Care Team Providers Care Director Of Career Services Name Role Phone Iraida Woodruff Primary Care Provider [phone] Encounter Details Date Type Department Care Team (Late Contact Info) Description 09/30/2025 Lab Requisition [facility] - Main Lab [address] [facility] [place] [address] Ria Vivas MD [address] [place] [id number] Urinary tract infection, site not specified; Bariatric surgery status; Nutritional deficiency, unspecified; Hypokalemia; Essential (primary) hypertension; Obesity, unspecified; Guillain-Ashburn syndrome (CMS/HCC V24) Social History Tobacco Use [...] 2:00 PM EST Office Visit Nephrology - [place] [address] [place] [id number] Christopher Pollard MD [address] [facility] [address] [place] [phone] documented as of this encounter Procedures Procedure Name Priority Date/Time Associated Diagnosis Comments CBC WITH AUTO DIFFERENTIAL Routine 09/30/2025 6:30 AM EST Urinary tract infection, site not specified Bariatric surgery status Nutritional deficiency, unspecified Hypokalemia Essential (primary) hypertension Obesity, unspecified Guillain-Ashburn syndrome (CMS/HCC V24) VITAMIN D 25 HYDROXY Routine 09/30/2025 6:30 AM EST Urinary tract infection, site not specified Bariatric surgery status Nutritional deficiency, unspecified Hypokalemia Essential (primary) hypertension Obesity, unspecified Guillain-Ashburn syndrome (CMS/HCC V24) CBC AND DIFFERENTIAL Routine 09/30/2025 6:30 AM EST Urinary tract infection, site not specified Bariatric surgery status Nutritional deficiency, unspecified Hypokalemia Essential (primary) hypertension Obesity, unspecified Guillain-Ashburn syndrome (CMS/HCC V24) THYROID STIMULATING HORMONE Routine 09/30/2025 6:30 AM EST Urinary tract infection, site not specified Bariatric surgery status Nutritional deficiency, unspecified Hypokalemia Essential (primary) hypertension Obesity, unspecified Guillain-Ashburn syndrome (CMS/HCC V24) FOLATE Routine 09/30/2025 6:30 AM EST Urinary tract infection, site not specified Bariatric surgery status Nutritional deficiency, unspecified Hypokalemia Essential (primary) hypertension Obesity, unspecified Guillain-Ashburn syndrome (CMS/HCC V24) VITAMIN B12 Routine 09/30/2025 6:30 AM EST Urinary tract infection, site not specified Bariatric surgery status Nutritional deficiency, unspecified Hypokalemia Essential (primary) hypertension Obesity, unspecified Guillain-Ashburn syndrome (CMS/HCC V24) COMPREHENSIVE METABOLIC PANEL Routine 09/30/2025 6:30 AM EST Urinary tract infection, site not specified Bariatric surgery status Nutritional deficiency, unspecified Hypokalemia Essential (primary) hypertension Obesity, unspecified Guillain-Ashburn syndrome (CMS/HCC V24) documented in this encounter Results * (ABNORMAL) CBC auto differential (09/30/2025 6:30 AM EST) [facility] WBC 3.9(L) 4.8 - 10.8 K/mcL LAB HEMETOLOGY METHOD 09/30/2025 8:24 AM [facility] RBC 4.00 3.80 - 4.80 M/mcL LAB HEMETOLOGY METHOD 09/30/2025 8:24 AM [facility] Hemoglobin 11.4(L) 11.5 - 16.0 g/dL LAB HEMETOLOGY METHOD 09/30/2025 8:24 AM [facility] Hematocrit 36.2 35.0 - 47.0 % LAB HEMETOLOGY METHOD 09/30/2025 8:24 AM [facility] MCV 89.6 79.0 - 98.0 FL LAB HEMETOLOGY METHOD 09/30/2025 8:24 AM [facility] MCH 28.2 27.0 - 32.0 pcg LAB HEMETOLOGY METHOD 09/30/2025 8:24 AM [facility] MCHC 31.5(L) 32.0 - 37.0 g/dL LAB HEMETOLOGY METHOD 09/30/2025 8:24 AM [facility] RDW 16.9(H) 11.0 - 15.0 % LAB HEMETOLOGY METHOD 09/30/2025 8:24 AM [facility] Platelets 211 130 - 400 K/mcL LAB HEMETOLOGY METHOD 09/30/2025 8:24 AM [facility] MPV 11.0 7.0 - 11.0 FL LAB HEMETOLOGY METHOD 09/30/2025 8:24 AM [facility] NRBC 0.0 <1.0 % LAB HEMETOLOGY METHOD 09/30/2025 8:24 AM [facility] NRBC Absolute 0.00 <0.10 K/mcL LAB HEMETOLOGY METHOD 09/30/2025 8:24 AM [facility] Neutrophils Relative 51.0 % LAB HEMETOLOGY METHOD 09/30/2025 8:24 AM [facility] Lymphocytes Relative 33.8 % LAB HEMETOLOGY METHOD 09/30/2025 8:24 AM [facility] Monocytes Relative 12.7 % LAB HEMETOLOGY METHOD 09/30/2025 8:24 AM [facility] Eosinophils Relative 1.5 % LAB HEMETOLOGY METHOD 09/30/2025 8:24 AM [facility] Basophils Relative 0.5 % LAB HEMETOLOGY METHOD 09/30/2025 8:24 AM [facility] Immature Granulocytes Relative 0.5 % LAB HEMETOLOGY METHOD 09/30/2025 8:24 AM [facility] Neutrophils Absolute 2.01 1.50 - 7.00 K/mcL LAB HEMETOLOGY METHOD 09/30/2025 8:24 AM [facility] Lymphocytes Absolute 1.33 1.00 - 5.00 K/mcL LAB HEMETOLOGY METHOD 09/30/2025 8:24 AM [facility] Monocytes Absolute 0.50 0.20 - 1.00 K/mcL LAB HEMETOLOGY METHOD 09/30/2025 8:24 AM [facility] Eosinophils Absolute 0.06 0.00 - 0.50 K/mcL LAB HEMETOLOGY METHOD 09/30/2025 8:24 AM [facility] Basophils Absolute 0.02 0.00 - 0.20 K/mcL LAB HEMETOLOGY METHOD 09/30/2025 8:24 AM [facility] Immature Granulocytes Absolute 0.02 0.00 - 0.03 K/mcL LAB HEMETOLOGY METHOD 09/30/2025 8:24 AM [facility] Blood Venous blood specimen / Unknown Venipuncture / Unknown 09/30/2025 6:30 AM EST 09/30/2025 7:42 AM EST us Ria Vivas MD LAB BLOOD ORDERABLES Final Resu lt Performing Organization Address City/[facility]/ZIP Co de Phone Number [facility] [address] [place] [address], [place] [phone] * (ABNORMAL) Vitamin D 25 hydroxy (09/30/2025 6:30 AM EST) [facility] Vit D, 25-Hydroxy 29.9(L) 30.0 - 80.0 ng/mL LAB CHEMISTRY METHOD 09/30/2025 10:22 AM EST [facility] Blood Venous blood specimen / Unknown Venipuncture / Unknown 09/30/2025 6:30 AM EST 09/30/2025 7:42 AM EST us Ria Vivas MD LAB BLOOD ORDERABLES Final Resu lt Performing Organization Address [facility] de Phone Number [facility] [address] [place] [address], [place] [phone] * Vitamin B12 (09/30/2025 6:30 AM EST) [facility] Vitamin B-12 554 250 - 900 pcg/mL LAB CHEMISTRY METHOD 09/30/2025 9:21 AM EST [facility] Blood Venous blood specimen / Unknown Venipuncture / Unknown 09/30/2025 6:30 AM EST 09/30/2025 7:42 AM EST us Ria Vivas MD LAB BLOOD ORDERABLES Final Resu lt Performing Organization Address City/[facility]/ZIP Co de Phone Number [facility] [address] [place] [address], [place] [phone] * (ABNORMAL) Folate (09/30/2025 6:30 AM EST) [facility] Folate 18.5(H) 2.8 - 17.0 ng/ml LAB CHEMISTRY METHOD 09/30/2025 9:21 AM EST [facility] Blood Venous blood specimen / Unknown Venipuncture / Unknown 09/30/2025 6:30 AM EST 09/30/2025 7:42 AM EST Ria Vivas MD LAB BLOOD ORDERABLES Final Resu lt [facility] [address] [place] [address], [place] [phone] * Thyroid stimulating hormone (09/30/2025 6:30 AM EST) Pathologist [facility] [place] TSH 2.13 0.40 - 4.00 mcIU/mL LAB CHEMISTRY METHOD 09/30/2025 10:23 AM EST [facility] Blood Venous blood specimen / Unknown Venipuncture / Unknown 09/30/2025 6:30 AM EST 09/30/2025 7:42 AM EST Rai Vivas MD LAB BLOOD ORDERABLES Final Resu lt Performing Organization Address City/[facility]/ZIP Co de Phone Number [facility] [address] [place] [address], [place] [phone] * (ABNORMAL) Comprehensive metabolic panel (09/30/2025 6:30 AM EST) Pathologist [facility] [place] Sodium 139 133 - 145 mmol/L LAB CHEMISTRY METHOD 09/30/2025 8:57 AM EST [facility] Potassium 3.8 3.5 - 5.5 mmol/L LAB CHEMISTRY METHOD 09/30/2025 8:57 AM EST [facility] Chloride 109 96 - 110 mmol/L LAB CHEMISTRY METHOD 09/30/2025 8:57 AM EST [facility] CO2 23 21 - 32 mmol/L LAB CHEMISTRY METHOD 09/30/2025 8:57 AM EST [facility] Anion Gap 7 3 - 11 LAB CHEMISTRY METHOD 09/30/2025 8:57 AM [facility] Glucose 76 70 - 100 mg/dL LAB CHEMISTRY METHOD 09/30/2025 8:57 AM [facility] BUN 7 5 - 25 mg/dL LAB CHEMISTRY METHOD 09/30/2025 8:57 AM [facility] Creatinine 0.60 0.50 - 1.10 mg/dL LAB CHEMISTRY METHOD 09/30/2025 8:57 AM [facility] eGFR 127 >=60 mL/min/1. 73m2 LAB CHEMISTRY METHOD 09/30/2025 8:57 AM [facility] Comment:Calculation based on the Chronic Kidney Disease Epidemiology Collaboration (CKD-EPI) equation refit without adjustment for race. BUN/Creatinine Ratio 11.7 LAB CHEMISTRY METHOD 09/30/2025 8:57 AM [facility] Calcium 9.1 8.5 - 10.5 mg/dL LAB CHEMISTRY METHOD 09/30/2025 8:57 AM [facility] AST (SGOT) 34 10 - 42 unit/L LAB CHEMISTRY METHOD 09/30/2025 8:57 AM [facility] ALT (SGPT) 41 10 - 60 unit/L LAB CHEMISTRY METHOD 09/30/2025 8:57 AM [facility] Alkaline Phosphatase 40(L) 42 - 121 unit/L LAB CHEMISTRY METHOD 09/30/2025 8:57 AM [facility] Total Protein 6.6 6.0 - 8.0 g/dL LAB CHEMISTRY METHOD 09/30/2025 8:57 AM [facility] Albumin 3.2 3.2 - 5.0 g/dL LAB CHEMISTRY METHOD 09/30/2025 8:57 AM [facility] Total Bilirubin 0.6 0.0 - 1.4 mg/dL LAB CHEMISTRY METHOD 09/30/2025 8:57 AM [facility] Blood Venous blood specimen / Unknown Venipuncture / Unknown 09/30/2025 6:30 AM EST 09/30/2025 7:42 AM EST us Ria Vivas MD LAB BLOOD ORDERABLES Final Resu lt [facility] [address] [place] [address], documented in this encounter Visit Diagnoses Diagnosis Urinary tract infection, site not specified Bariatric surgery status Nutritional deficiency, unspecified Hypokalemia Hypopotassemia Essential (primary) hypertension Unspecified essential hypertension Obesity, unspecified Guillain-Ashburn syndrome (CMS/[facility] V24) Acute infective polyneuritis documented in this encounter Care Teams Director Of Career Services Relationship Specialty Start Date End Date Iraida Woodruff PA [address] [place] [address], [address] [place] [address] PCP - General 08/23/25 documented as of this encounter
--- OUTSIDE RECORDS SUMMARY | 2025-11-10 17:35 | XMS_ITS | Clinical Summary ---
Author Organization [facility] Address [address] [facility] [address] [place] [address] Phone Care Team Providers Care Family Therapist Name Role Phone Darin Restrepo MD Primary [...] Care Team Description 09/23/2025 Orders Only [facility] [address] [place] [address] Homehealth, Interface Provider, from Last [...] EST) SODIUM 140 133 - 146 mmol/L [facility] CHLORIDE 103 96 - 108 mmol/L [facility] POTASSIUM 4.6 3.3 - 5.1 mmol/L [facility] CO2 27 21 - 35 mmol/L [facility] BUN 15 6 - 19 mg/dL [facility] CREATININE 1.00 0.5 - 1.5 mg/dL [facility] GLUCOSE 100(H) 70 - 99 mg/dL [facility] CALCIUM 9.2 8.4 - 10.3 mg/dL [facility] EGFR 81 >59 mL/min/1.7 3m2 [facility] Comment:Estimated glomerular filtration rate calculated using the CKD-EPI refit equation. ANION GAP 15 10 - 20 mmol/L [facility] Blood 01/22/2024 12:3 5 AM EST 01/22/2024 12:40 AM EST us Grayson Ivan DO LAB BLOOD BKR ORDERABL ES Final Result [address] [address] from Last 3 Months or Most Recently Relevant to Health Maintenance [place] [address] [place] [address] MEDICARE REPLACEMENT [facility] MEDICARE REPLACEMENT Member Subscriber Plan / Payer (Ef fective 2022-) Name:Tk Ferrer Relation to Subscriber:Self Name:Tk Ferrer Payer ID:[id number] (NAIC) Group ID:[id number] Type:Medicare Address: [place] [id number] [place] [id number] [facility] MEDICARE REPLACEMENT MEDICARE REPLACEMENT MEDICARE REPLACEMENT MEDICARE REPLACEMENT Member Subscriber Plan / Payer (Ef fective 2022-) Name:Tk Ferrer Relation to Subscriber:Self Name:Tk Ferrer Payer ID:[id number] (NAIC) Group ID:[id number] Type:Medicare Address: [place] [phone] [facility] Care Teams Family Therapist Relationship Specialty Start Date End Date Darin Restrepo MD [address] [place] [phone] PCP - General Internal Medicine 11/30/21 Additional Source Comments The information contained in this document represents components of the legal health record. It is not the complete legal health record.[facility]
--- OUTSIDE RECORDS SUMMARY | 2025-11-10 17:35 | XMS_ITS | Clinical Summary ---
Author Organization [facility] [address] [place] [address] [place] [phone] Phone Care Team Providers Care Remote Pilot Operator Name Role Phone Iraida Woodruff Primary Care Provider [phone] Allergies Active Allergy Reactions Criticality Noted Date Comments Cephalexin 10/23/2020 Burning sensation all over body. Doxycycline Hyclate 10/23/2020 hives Penaten 02/20/2023 Penicillin G Hives High 02/17/2023 Pt stated had bad reaction. She had hives all over the body. Sulfa (Sulfonamide Antibiotics) 03/06/2021 Medications cloNIDine ([id number] ) 0.3 mg/[address] 1 Patch onto the skin once a week. 4 Active emollient comb no.2, bulk, ointment Apply 0.5 g topically 2 times daily. 5% gabapentin ointment Sig: Apply 0.5 g daily to affected area Patient phone number: [phone] (home) 3 Active cholecalciferol (VITAMIN D-3) 1,250 [...] processing disorder 08/27/2024 Overview (08/27/2024): according to [facility] hearing report dated 01-15-13 Report from [...] average Menorrhagia 07/14/2012 Overview (08/27/2024): [facility], has tiffany iud Last Assessment & [...] Recommended ACT -14 = 20 05-04-15: [facility]ation as of 08-08- no prob since 03-27-16: [facility] 5 d pred 40mg As of [...] eval confirms dx of ADHD- accommodations in [employer]- full inclusion 03-07-15: normal [...] Department Care Team Description 10/10/2025 Lab Requisition [facility] - Main Lab [address] [facility] [place] [address] Ria Vivas MD 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 Lab Requisition [facility] Lab [address] [facility] [place] [address] Ria Vivas MD Nutritional deficiency, unspecified 09/30/2025 Lab Requisition [facility] Lab [address] [place] [address] Ria Vivas MD Urinary tract infection, site not specified 09/30/2025 Lab Requisition [facility] Main Lab [address] [place] [phone] Ria Vivas MD Urinary tract infection, site not specified; Bariatric surgery status; Nutritional deficiency, unspecified; Hypokalemia; Essential (primary) hypertension; Obesity, unspecified; 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) 09/23/2025 Lab Requisition [facility] Lab [address] [place] [phone] Sushma Montana PA Encounter for other general examination 09/19/2025 Lab Requisition [facility] Lab [address] [place] [phone] Malia Gardner PA Encounter for other general examination 09/13/2025 Lab Requisition [facility] Lab [address] [place] [phone] Ria Vivas MD Other jail (current) drug therapy 09/10/2025 Lab Requisition [facility] Lab [address] [place] [phone] Isabella Wright PA Encounter for other general examination 08/22/2025 Lab Requisition [facility] Main Lab [address] [place] [phone] Lasha Moctezuma PA Urinary tract infection, site not specified from Last 3 Months Immunizations Immunization Administration Dates Next Due DTaP (Infanrix) 6wks to less than 7yo ,07/17/2000,1999,09/04,1999 OAtO-BKC-JQG (Pentacel) 2mo to less than 5yo 06/18/2000,1999,1999,06/01 H1N1 Inj Preservative Free 12/22/2009 HPV, Quadrivalent 04/30/2013,07/14/2012,04/14/20 12 Hepatitis B (Mtxnecw-D-Uvshq , Recombivax HB-Adult) 19yo and older 07/12/2020,02/09/2020,01/05/2020 [...] 04/27/2003,06/12/2000 Meningococcal MCV4P 08/08/2015,04/14/2012 PPD Test 11/10/2019 [employer] SARS-CoV-2 COVID-19, mRNA, LNP-S, preservative free 09/04/2021 [...] verapamil 40 mg bid in addition to [id number] mg hs; fioricet PRN, riboflavin, magnesium 10-10-15: [...] on file Sexual Orientation Not on file Last Filed Vital Signs [...] 2:00 PM EST Office Visit Nephrology - [place] [address] [place] [address] Christopher Pollard MD [address] [place] [address] Health Maintenance Due Date Last Done Comments Drug Screen 1999 Non-Opioid Controlled Substance Agreement 1999 Pneumococcal Vaccine: Pediatrics (0 to 5 Years) [...] Cervical Cancer Screening: Pap Smear 09/05/2025 09/05/2022, 09/05/2022 Hypertension/CHF/CAD Annual BMP Blood Test [...] METABOLIC PANEL Routine 10/10/2025 1:06 PM EST 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) COMPLETE BLOOD COUNT Routine 10/10/2025 1:06 PM EST 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) COMPREHENSIVE METABOLIC PANEL Routine 10/08/2025 8:30 AM EST Nutritional deficiency, unspecified COMPLETE BLOOD COUNT Routine 10/08/2025 8:30 AM EST Nutritional deficiency, unspecified CBC WITH AUTO DIFFERENTIAL Routine 09/30/2025 6:30 AM EST Urinary tract infection, site not specified Bariatric surgery status Nutritional deficiency, unspecified Hypokalemia Essential (primary) hypertension Obesity, unspecified Guillain-Spencerport syndrome (CMS/HCC V24) VITAMIN D 25 HYDROXY Routine 09/30/2025 6:30 AM EST Urinary tract infection, site not specified Bariatric surgery status Nutritional deficiency, unspecified Hypokalemia Essential (primary) hypertension Obesity, unspecified Guillain-Spencerport syndrome (CMS/HCC V24) VITAMIN B12 Routine 09/30/2025 6:30 AM EST Urinary tract infection, site not specified Bariatric surgery status Nutritional deficiency, unspecified Hypokalemia Essential (primary) hypertension Obesity, unspecified Guillain-Spencerport syndrome (CMS/HCC V24) FOLATE Routine 09/30/2025 6:30 AM EST Urinary tract infection, site not specified Bariatric surgery status Nutritional deficiency, unspecified Hypokalemia Essential (primary) hypertension Obesity, unspecified Guillain-Spencerport syndrome (CMS/HCC V24) THYROID STIMULATING HORMONE Routine 09/30/2025 6:30 AM EST Urinary tract infection, site not specified Bariatric surgery status Nutritional deficiency, unspecified Hypokalemia Essential (primary) hypertension Obesity, unspecified Guillain-Spencerport syndrome (CMS/HCC V24) COMPREHENSIVE METABOLIC PANEL Routine 09/30/2025 6:30 AM EST Urinary tract infection, site not specified Bariatric surgery status Nutritional deficiency, unspecified Hypokalemia Essential (primary) hypertension Obesity, unspecified Guillain-Spencerport syndrome (CMS/HCC V24) CBC AND DIFFERENTIAL Routine 09/30/2025 6:30 AM EST Urinary tract infection, site not specified Bariatric surgery status Nutritional deficiency, unspecified Hypokalemia Essential (primary) hypertension Obesity, unspecified Guillain-Spencerport syndrome (CMS/HCC V24) URINALYSIS WITH REFLEX MICROSCOPIC Routine 09/30/2025 [...] AM EDT Other jail (current) drug therapy COMPREHENSIVE METABOLIC PANEL Routine 09/13/2025 6:38 AM EDT Other jail (current) drug therapy CBC AND DIFFERENTIAL Routine 09/13/2025 6:38 AM EDT Other jail (current) drug therapy MANUAL DIFFERENTIAL - [facility] [...] K/mcL LAB HEMETOLOGY METHOD 10/10/2025 1:40 PM [facility] RBC 4.50 3.80 - 4.80 M/mcL LAB HEMETOLOGY METHOD 10/10/2025 1:40 PM [facility] Hemoglobin 13.2 11.5 - 16.0 g/dL LAB HEMETOLOGY METHOD 10/10/2025 1:40 PM [facility] Hematocrit 39.7 35.0 - 47.0 % LAB HEMETOLOGY METHOD 10/10/2025 1:40 PM [facility] MCV 88.4 79.0 - 98.0 FL LAB HEMETOLOGY METHOD 10/10/2025 1:40 PM [facility] MCH 29.4 27.0 - 32.0 pcg LAB HEMETOLOGY METHOD 10/10/2025 1:40 PM [facility] MCHC 33.2 32.0 - 37.0 g/dL LAB HEMETOLOGY METHOD 10/10/2025 1:40 PM [facility] RDW 15.4(H) 11.0 - 15.0 % LAB HEMETOLOGY METHOD 10/10/2025 1:40 PM [facility] Platelets 270 130 - 400 K/mcL LAB HEMETOLOGY METHOD 10/10/2025 1:40 PM EST [facility] MPV 10.6 7.0 - 11.0 FL LAB HEMETOLOGY METHOD 10/10/2025 1:40 PM EST [facility] NRBC 0.0 <1.0 % LAB HEMETOLOGY METHOD 10/10/2025 1:40 PM [facility] NRBC Absolute 0.00 <0.10 K/mcL LAB HEMETOLOGY METHOD 10/10/2025 1:40 PM EST [facility] Blood Venous blood specimen / Unknown Venipuncture / Unknown 10/10/2025 1:06 PM EST 10/10/2025 1:34 PM EST us Ria Vivas MD LAB BLOOD ORDERABLES Final Resu lt [facility] [address] [place] [address], [place] [phone] * Basic metabolic panel (10/10/2025 1:06 PM EST) Only the most recent of2 resultswithin the time period is included. Sodium 140 133 - 145 mmol/L LAB CHEMISTRY METHOD 10/10/2025 2:03 PM [facility] Potassium 3.5 3.5 - 5.5 mmol/L LAB CHEMISTRY METHOD 10/10/2025 2:03 PM [facility] Chloride 107 96 - 110 mmol/L LAB CHEMISTRY METHOD 10/10/2025 2:03 PM [facility] CO2 22 21 - 32 mmol/L LAB CHEMISTRY METHOD 10/10/2025 2:03 PM [facility] Anion Gap 11 3 - 11 LAB CHEMISTRY METHOD 10/10/2025 2:03 PM [facility] Glucose 77 70 - 100 mg/dL LAB CHEMISTRY METHOD 10/10/2025 2:03 PM [facility] BUN 8 5 - 25 mg/dL LAB CHEMISTRY METHOD 10/10/2025 2:03 PM EST [facility] Creatinine 0.61 0.50 - 1.10 mg/dL LAB CHEMISTRY METHOD 10/10/2025 2:03 PM EST [facility] eGFR 127 >=60 mL/min/1. 73m2 LAB CHEMISTRY METHOD 10/10/2025 2:03 PM EST [facility] Comment:Calculation based on the Chronic Kidney Disease Epidemiology Collaboration (CKD-EPI) equation refit without adjustment for race. BUN/Creatinine Ratio 13.1 LAB CHEMISTRY METHOD 10/10/2025 2:03 PM EST [facility] Calcium 9.6 8.5 - 10.5 mg/dL LAB CHEMISTRY METHOD 10/10/2025 2:03 PM [facility] Blood Venous blood specimen / Unknown Venipuncture / Unknown 10/10/2025 1:06 PM EST 10/10/2025 1:34 PM EST us Ria Vivas MD LAB BLOOD ORDERABLES Final Resu lt [facility] [address] [place] [address], [place] [phone] * (ABNORMAL) Comprehensive metabolic panel (10/08/2025 8:30 AM EST) Only the most recent of5 resultswithin the time period is included. Sodium 141 133 - 145 mmol/L LAB CHEMISTRY METHOD 10/08/2025 10:48 AM EST [facility] Potassium 3.5 3.5 - 5.5 mmol/L LAB CHEMISTRY METHOD 10/08/2025 10:48 AM EST [facility] Chloride 107 96 - 110 mmol/L LAB CHEMISTRY METHOD 10/08/2025 10:48 AM EST [facility] CO2 26 21 - 32 mmol/L LAB CHEMISTRY METHOD 10/08/2025 10:48 AM [facility] Anion Gap 8 3 - 11 LAB CHEMISTRY METHOD 10/08/2025 10:48 AM [facility] Glucose 80 70 - 100 mg/dL LAB CHEMISTRY METHOD 10/08/2025 10:48 AM [facility] BUN 6 5 - 25 mg/dL LAB CHEMISTRY METHOD 10/08/2025 10:48 AM [facility] Creatinine 0.40(L) 0.50 - 1.10 mg/dL LAB CHEMISTRY METHOD 10/08/2025 10:48 AM [facility] eGFR 140 >=60 mL/min/1. 73m2 LAB CHEMISTRY METHOD 10/08/2025 10:48 AM [facility] Comment:Calculation based on the Chronic Kidney Disease Epidemiology Collaboration (CKD-EPI) equation refit without adjustment for race. BUN/Creatinine Ratio 15.0 LAB CHEMISTRY METHOD 10/08/2025 10:48 AM [facility] Calcium 9.0 8.5 - 10.5 mg/dL LAB CHEMISTRY METHOD 10/08/2025 10:48 AM [facility] AST (SGOT) 32 10 - 42 unit/L LAB CHEMISTRY METHOD 10/08/2025 10:48 AM [facility] ALT (SGPT) 38 10 - 60 unit/L LAB CHEMISTRY METHOD 10/08/2025 10:48 AM [facility] Alkaline Phosphatase 41(L) 42 - 121 unit/L LAB CHEMISTRY METHOD 10/08/2025 10:48 AM [facility] Total Protein 6.4 6.0 - 8.0 g/dL LAB CHEMISTRY METHOD 10/08/2025 10:48 AM [facility] Albumin 3.3 3.2 - 5.0 g/dL LAB CHEMISTRY METHOD 10/08/2025 10:48 AM [facility] Total Bilirubin 0.6 0.0 - 1.4 mg/dL LAB CHEMISTRY METHOD 10/08/2025 10:48 AM EST [facility] Blood Venous blood specimen / Unknown Venipuncture / Unknown 10/08/2025 8:30 AM EST 10/08/2025 9:21 AM EST us Ria Vivas MD LAB BLOOD ORDERABLES Final Resu lt [facility] [address] [place] [address], [place] [phone] * (ABNORMAL) CBC auto differential (09/30/2025 6:30 AM EST) Only the most recent of4 resultswithin the time period is included. WBC 3.9(L) 4.8 - 10.8 K/mcL LAB HEMETOLOGY METHOD 09/30/2025 8:24 AM [facility] RBC 4.00 3.80 - 4.80 M/mcL LAB HEMETOLOGY METHOD 09/30/2025 8:24 AM [facility] Hemoglobin 11.4(L) 11.5 - 16.0 g/dL LAB HEMETOLOGY METHOD 09/30/2025 8:24 AM [facility] Hematocrit 36.2 35.0 - 47.0 % LAB HEMETOLOGY METHOD 09/30/2025 8:24 AM [facility] MCV 89.6 79.0 - 98.0 FL LAB HEMETOLOGY METHOD 09/30/2025 8:24 AM [facility] MCH 28.2 27.0 - 32.0 pcg LAB HEMETOLOGY METHOD 09/30/2025 8:24 AM [facility] MCHC 31.5(L) 32.0 - 37.0 g/dL LAB HEMETOLOGY METHOD 09/30/2025 8:24 AM [facility] RDW 16.9(H) 11.0 - 15.0 % LAB HEMETOLOGY METHOD 09/30/2025 8:24 AM [facility] Platelets 211 130 - 400 K/mcL LAB HEMETOLOGY METHOD 09/30/2025 8:24 AM [facility] MPV 11.0 7.0 - 11.0 FL LAB HEMETOLOGY METHOD 09/30/2025 8:24 AM [facility] NRBC 0.0 <1.0 % LAB HEMETOLOGY METHOD 09/30/2025 8:24 AM [facility] NRBC Absolute 0.00 <0.10 K/mcL LAB HEMETOLOGY METHOD 09/30/2025 8:24 AM [facility] Neutrophils Relative 51.0 % LAB HEMETOLOGY METHOD 09/30/2025 8:24 AM [facility] Lymphocytes Relative 33.8 % LAB HEMETOLOGY METHOD 09/30/2025 8:24 AM [facility] Monocytes Relative 12.7 % LAB HEMETOLOGY METHOD 09/30/2025 8:24 AM [facility] Eosinophils Relative 1.5 % LAB HEMETOLOGY METHOD 09/30/2025 8:24 AM [facility] Basophils Relative 0.5 % LAB HEMETOLOGY METHOD 09/30/2025 8:24 AM [facility] Immature Granulocytes Relative 0.5 % LAB HEMETOLOGY METHOD 09/30/2025 8:24 AM [facility] Neutrophils Absolute 2.01 1.50 - 7.00 K/mcL LAB HEMETOLOGY METHOD 09/30/2025 8:24 AM [facility] Lymphocytes Absolute 1.33 1.00 - 5.00 K/mcL LAB HEMETOLOGY METHOD 09/30/2025 8:24 AM [facility] Monocytes Absolute 0.50 0.20 - 1.00 K/mcL LAB HEMETOLOGY METHOD 09/30/2025 8:24 AM EST [facility] Eosinophils Absolute 0.06 0.00 - 0.50 K/mcL LAB HEMETOLOGY METHOD 09/30/2025 8:24 AM EST [facility] Basophils Absolute 0.02 0.00 - 0.20 K/mcL LAB HEMETOLOGY METHOD 09/30/2025 8:24 AM EST [facility] Immature Granulocytes Absolute 0.02 0.00 - 0.03 K/[facility] LAB HEMETOLOGY METHOD 09/30/2025 8:24 AM EST [facility] Blood Venous blood specimen / Unknown Venipuncture / Unknown 09/30/2025 6:30 AM EST 09/30/2025 7:42 AM EST Ria Vivas MD LAB BLOOD ORDERABLES Final Resu lt Performing Organization Address City/[facility]/ZIP Co de Phone Number [facility] [address] [place] [address], [place] [phone] * (ABNORMAL) Vitamin D 25 hydroxy (09/30/2025 6:30 AM EST) Vit D, 25-Hydroxy 29.9(L) 30.0 - 80.0 ng/mL LAB CHEMISTRY METHOD 09/30/2025 10:22 AM EST [facility] Blood Venous blood specimen / Unknown Venipuncture / Unknown 09/30/2025 6:30 AM EST 09/30/2025 7:42 AM EST us Ria Vivas MD LAB BLOOD ORDERABLES Final Resu lt [facility] [address] [place] [address], [place] [phone] * Thyroid stimulating hormone (09/30/2025 6:30 AM EST) TSH 2.13 0.40 - 4.00 mcIU/mL LAB CHEMISTRY METHOD 09/30/2025 10:23 AM EST [facility] Blood Venous blood specimen / Unknown Venipuncture / Unknown 09/30/2025 6:30 AM EST 09/30/2025 7:42 AM EST us Ria Vivas MD LAB BLOOD ORDERABLES Final Resu lt Performing Organization Address [facility]/ZIP Co de Phone Number [facility] [address] [place] [address], [place] [phone] * (ABNORMAL) Folate (09/30/2025 6:30 AM EST) Folate 18.5(H) 2.8 - 17.0 ng/ml LAB CHEMISTRY METHOD 09/30/2025 9:21 AM EST [facility] Blood Venous blood specimen / Unknown Venipuncture / Unknown 09/30/2025 6:30 AM EST 09/30/2025 7:42 AM EST us Ria Vivas MD LAB BLOOD ORDERABLES Final Resu lt Performing Organization Address [facility] de Phone Number [facility] [address] [place] [address], [place] [phone] * Vitamin B12 (09/30/2025 6:30 AM EST) Vitamin B-12 554 250 - 900 pcg/mL LAB CHEMISTRY METHOD 09/30/2025 9:21 AM EST [facility] Blood Venous blood specimen / Unknown Venipuncture / Unknown 09/30/2025 6:30 AM EST 09/30/2025 7:42 AM EST us Ria Vivas MD LAB BLOOD ORDERABLES Final Resu lt Performing Organization Address [facility]/ZIP Co de Phone Number [facility] [address] [place] [address], [place] [phone] * (ABNORMAL) Urinalysis with reflex microscopic (09/30/2025 4:00 AM [facility]) Specific [place] Urine 1.021 1.003 - 1.030 LAB URINALYSIS - AUTOMATED METHOD 09/30/2025 9:09 AM [facility] pH, Urine 5.0 5.0 - 8.0 pH LAB URINALYSIS - AUTOMATED METHOD 09/30/2025 9:09 AM [facility] Leukocytes, Urine Small(A) Negative LAB URINALYSIS - AUTOMATED METHOD 09/30/2025 9:09 AM [facility] Nitrite, Urine Negative Negative LAB URINALYSIS - AUTOMATED METHOD 09/30/2025 9:09 AM [facility] Protein, Urine 100(A) <=Trace mg/dL LAB URINALYSIS - AUTOMATED METHOD 09/30/2025 9:09 AM [facility] Glucose, Urine Negative Negative mg/dL LAB URINALYSIS - AUTOMATED METHOD 09/30/2025 9:09 AM [facility] Ketones, Urine Negative Negative mg/dL LAB URINALYSIS - AUTOMATED METHOD 09/30/2025 9:09 AM [facility] Urobilinogen , Urine 1.0 0.2 - 1.0 mg/dL LAB URINALYSIS - AUTOMATED METHOD 09/30/2025 9:09 AM [facility] Bilirubin, Urine Negative Negative LAB URINALYSIS - AUTOMATED METHOD 09/30/2025 9:09 AM [facility] Blood, Urine Large(A) Negative LAB URINALYSIS - AUTOMATED METHOD 09/30/2025 9:09 AM [facility] RBC, Urine >100(H) 0 - 4 /HPF 09/30/2025 9:09 AM [facility] WBC, Urine 5(H) 0 - 4 /HPF 09/30/2025 9:09 AM [facility] Squamous Epithelial, Urine 5 0 - 60 /LPF 09/30/2025 9:09 AM EST [facility] Crystals, Urine Heavy Calcium Oxalate crystals. Heavy Amorphous Urate crystals. /LPF 09/30/2025 9:09 AM EST [facility] Bacteria, Urine Few(A) Negative /HPF 09/30/2025 9:09 AM EST [facility] Urine Urine specimen obtained by clean catch procedure / Unknown Non-blood Collection / Unknown 09/30/2025 4:00 AM EST 09/30/2025 8:06 AM EST us Ria Vivas MD LAB URINE ORDERABLES Final Resu lt [facility] [address] [place] [address], [place] [phone] * (ABNORMAL) Culture urine (09/30/2025 4:00 AM EST) Only the most recent of2 resultswithin the time period is included. Culture, Urine >=100,000 CFU/mL Staphylococcus epidermidis(A) CHUY 10/02/2025 10:10 AM EST [facility] Comment: This [...] Ria Vivas MD LAB MICROBIOLOGY - GENERAL ORDKyree ALMEIDA Final Result Performing Organization Address [facility]/ZIP Co de Phone Number [facility] [address] [place] [address], * Phosphorus (09/19/2025 6:29 AM EDT) Phosphorus 4.5 2.5 - 4.5 mg/dL LAB CHEMISTRY METHOD 09/19/2025 9:25 AM EDT [facility] Blood Venous blood specimen / Unknown Venipuncture / Unknown 09/19/2025 6:29 AM EDT 09/19/2025 8:39 AM EDT Malia LUNA LAB BLOOD ORDERABLES Final Resul t Performing Organization Address [facility]/ZIP Co de Phone Number [facility] [address] [place] [address], [place] [phone] * Magnesium (09/19/2025 6:29 AM EDT) Only the most recent of2 resultswithin the time period is included. Magnesium 2.1 1.9 - 2.6 mg/dL LAB CHEMISTRY METHOD 09/19/2025 9:25 AM EDT [facility] Blood Venous blood specimen / Unknown Venipuncture / Unknown 09/19/2025 6:29 AM EDT 09/19/2025 8:39 AM EDT Malia LUNA LAB BLOOD ORDERABLES Final Resul t Performing Organization Address [facility]/ZIP Co de Phone Number [facility] [address] [place] [address], [place] [phone] * (ABNORMAL) Manual differential (09/10/2025 6:40 AM EDT) Neutrophils % 32.0 % LAB HEMETOLOGY METHOD 09/10/2025 11:55 AM [facility] Lymphocytes % 61.0 % LAB HEMETOLOGY METHOD 09/10/2025 11:55 AM [facility] Monocytes % 5.0 % LAB HEMETOLOGY METHOD 09/10/2025 11:55 AM [facility] Eosinophils % 1.0 % LAB HEMETOLOGY METHOD 09/10/2025 11:55 AM [facility] Basophils % 1.0 % LAB HEMETOLOGY METHOD 09/10/2025 11:55 AM [facility] Neutrophils Absolute Manual 0.74(L) 1.50 - 7.00 K/mcL LAB HEMETOLOGY METHOD 09/10/2025 11:55 AM [facility] Lymphocytes Absolute 1.40 1.00 - 5.00 K/mcL LAB HEMETOLOGY METHOD 09/10/2025 11:55 AM [facility] Monocytes Absolute Manual 0.12(L) 0.20 - 1.00 K/mcL LAB HEMETOLOGY METHOD 09/10/2025 11:55 AM [facility] Eosinophils Absolute Manual 0.02 0.00 - 0.50 K/mcL LAB HEMETOLOGY METHOD 09/10/2025 11:55 AM [facility] Basophils Absolute Manual 0.02 0.00 - 0.20 K/mcL LAB HEMETOLOGY METHOD 09/10/2025 11:55 AM [facility] Rbc Morphology Consistent with indices Consistent with indices, Normal for LAB HEMETOLOGY METHOD 09/10/2025 11:55 AM [facility] Platelet Morphology - WAM See Note(A) Normal LAB HEMETOLOGY METHOD 09/10/2025 11:55 AM EDT [facility] Comment:PLT: Normal Blood Venous blood specimen / Unknown Venipuncture / Unknown 09/10/2025 6:40 AM EDT 09/10/2025 9:50 AM EDT [facility] BLOOD [facility]LES Final Resu lt Performing Organization Address [facility] de Phone Number [facility] [address] [place] [address], [place] [phone] * Pathology review, blood smear (09/10/2025 6:40 AM EDT) Pathologist Review Blood Smear Leukopenia including absolute neutropenia: smear not diagnostic of etiology. Rare reactive-appea ring lymphocytes are noted. Occasional giant platelets are noted; no significant platelet clumps are identified. 09/12/2025 9:27 AM EDT [facility] Blood Venous blood specimen / Unknown Venipuncture / Unknown 09/10/2025 6:40 AM EDT 09/10/2025 9:50 AM EDT Isabella Wright DC LAB BLOOD ORDERABLES Final Resu lt Performing Organization Address [facility] Co de Phone Number [facility] [address] [place] [address], [place] [phone] * Gonorrhea/Chlamydia Screening (11/13/2023) Gonorrhea/Chla mydia Screening abstracted us Historical Provider MD HEALTH MAINTENANCE Final Result * Depression Screening (10/06/2023) Depression Screening abstracted us Historical Provider MD HEALTH [...] RESULTING AGENCY - 09/12/2022 7:30 AM EDT [id number] THINPREP PAP, IMAGED: NEGATIVE FOR SQUAMOUS INTRAEPITHELIAL [...] HEALTHCARE MEDICAID [employer] MEDICARE Care Teams Remote Pilot Operator Relationship Specialty Start Date End Date Iraida Woodruff PA [address] [place] [address], [address] [place] [address] PCP - General 08/23/25
== END 2025-11-10 13:43 | disposition home or self-care (01) ==
LOC: HO.HBS 13:27
PROVIDERS: Visit Provider Physician Assistant Surgical
DX: E66.01 Morbid (severe) obesity due to excess calories (principal); Z68.41 Body mass index [BMI] 40.0-44.9, adult; Z90.3 Acquired absence of stomach [part of]; Z98.84 Bariatric surgery status
CPT/HCPCS: 99213

== ENCOUNTER 2025-11-21 05:02 | Outpatient (BNV) | payer MEDICARE, MEDICAID, SELFPAY | END 2025-11-22 07:54 | PROVIDERS: Admitting Provider Internal Medicine; Emergency Provider Emergency Medicine; Visit Provider Radiology Diagnostic Radiology | DX: R10.84 Generalized abdominal pain (principal); R11.10 Vomiting, unspecified; N13.2 Hydronephrosis with renal and ureteral calculous obstruction | CPT/HCPCS: 74176 ==

== ENCOUNTER → 2025-11-21 05:02 | Outpatient (BNV) | payer MEDICARE, MEDICAID, SELFPAY | PROVIDERS: Admitting Provider Internal Medicine; Emergency Provider Emergency Medicine; Visit Provider Urology | DX: N17.9 Acute kidney failure, unspecified (principal); N13.9 Obstructive and reflux uropathy, unspecified; N13.2 Hydronephrosis with renal and ureteral calculous obstruction | CPT/HCPCS: 52332; 52353; 74420; 99222 ==

== ENCOUNTER → 2025-11-21 05:02 | Outpatient (BNV) | payer OTHER, MEDICAID, SELFPAY | PROVIDERS: Admitting Provider Internal Medicine; Emergency Provider Emergency Medicine; Visit Provider Internal Medicine | DX: E66.01 Morbid (severe) obesity due to excess calories (principal); Z68.43 Body mass index [BMI] 50.0-59.9, adult; R11.2 Nausea with vomiting, unspecified; N17.9 Acute kidney failure, unspecified; N13.30 Unspecified hydronephrosis; E87.6 Hypokalemia; N13.9 Obstructive and reflux uropathy, unspecified; N30.01 Acute cystitis with hematuria | CPT/HCPCS: 99232; 99233 ==